=== PATIENT | female | born 1940 | race Caucasian/White ===

== ENCOUNTER 2022-10-26 13:42 | Outpatient (OUT) | payer MEDICARE, OTHER, SELFPAY ==
[2022-10-26 14:48] LABS: C Reactive Protein 0.9 mg/dL (<=1.0)
[2022-10-26 14:54] LABS: Erythrocyte Sedimentation Rate 43 mm/hr (<=30)
[2022-10-27 05:12] LABS: HCV Ab Non Reactive (Non Reactive)
[2022-10-28 05:09] LABS: Hepatitis B Surf Ab Quant <3.1 mIU/mL (Immunity>9.9)
== END 2022-10-26 13:43 | disposition home or self-care (01) ==
PROVIDERS: PCP Internal Medicine Rheumatology; Visit Provider Internal Medicine Rheumatology
DX: Z79.899 Other long term (current) drug therapy (principal); M19.90 Unspecified osteoarthritis, unspecified site; M35.3 Polymyalgia rheumatica
CPT/HCPCS: 36415; 85652; 86140; 86706; 86803

== ENCOUNTER 2022-11-05 14:20 | Emergency (ER) | payer MEDICARE, OTHER, SELFPAY ==
[2022-11-05 14:27] VITALS: BP 162/100; PULSE 99; RESP 18; TEMP 37; O2SAT 97
--- NOTE | 2022-11-05 14:37 | XR_ITS ---
The [address] [address] Patient Name: AMISHA GARCIA MRN: [id number] date: 1940 Sex: F Assigned Patient Location: ER Current Patient Location: ER Accession/Order Number: [id number] Exam Date: 11/05/2022 14:50 Report Date: 11/05/2022 15:15 At the request of: NATACHA ANTOINE Procedure: XR wrist LT min 3V PROCEDURE: XR wrist LT min 3V HISTORY: left wrist pain , base of thumb pain COMPARISON: None. FINDINGS: BONES:Advanced degenerative changes at base of thumb with marked flattening/destruction of the trapezium and triquetrum versus anterior dislocation. SOFT TISSUES:Mild soft tissue swelling surrounding the wrist. Bone anchor within what is suspected to be the anteriorly displaced trapezium. EFFUSION:None visible. OTHER: Negative. XR/XR wrist LT min 3V IMPRESSION: 1. Marked degenerative changes and suspected anterior dislocation of the trapezium and involving the base of the thumb. No prior studies for comparison. 2. No appreciable acute fracture. Electronically authenticated by: IHSAN PEDROZA Date: 11/05/2022 15:15
--- NOTE | 2022-11-05 14:38 | ED_ITS ---
HPI - Extremity Injury (Upper) General Chief Complaint: Extremity Injury, Upper Stated Complaint: L FOREARM PAIN Time Seen by Provider: 11/05/22 14:27 Source: patient Mode of arrival: walk-in Limitations: no limitations History of Present Illness HPI narrative: Patient is an 82-year-old female presents to the emergency department for the evaluation of pain and bruising to the left volar wrist since yesterday. She states that she hit her hand on something yesterday, possibly the refrigerator and believes her hand was in a fist position. She states she has developed bruising to the left volar wrist and pain with supination and pronation. No other associated injuries. She is not on blood thinners. She denies numbness or tingling. No pain in the hand. Related Data Allergies Allergy/AdvReac Type Severity Reaction Status Date / Time No Known Drug Allergies Allergy Verified 11/05/22 14:34 Review of Systems ROS Constitutional Denies: fever or chills Ears, nose, mouth, and throat Denies: throat pain Cardiovascular Denies: chest pain Respiratory Denies: shortness of breath or cough Gastrointestinal Denies: nausea or vomiting Musculoskeletal Reports: extremity pain; Denies: back pain or neck pain Integumentary/Breast Denies: rash Neurological Denies: headache Hematologic/Lymphatic Denies: easy bruising Exam Narrative Exam Narrative: Gen.: Awake, alert, in no distress Head: Normocephalic, atraumatic ENT: Moist mucous membranes Respiratory: No respiratory distress Extremities: Minimal pain with supination of the left wrist, faint ecchymosis noted to the left volar wrist, no bony point tenderness or obvious deformity. 2+ left radial pulse. 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 No tenderness of the proximal forearm or left elbow. Psych: Normal mood and affect Neuro: No focal neuro deficit Skin: Warm, dry, intact Constitutional Vital Signs, click to edit/add: Last Vital Signs Temp 98.6 F 11/05/22 14:27 Pulse 99 H 11/05/22 14:27 Resp 18 11/05/22 14:27 BP 162/100 H 11/05/22 14:27 Pulse Ox 97 11/05/22 14:27 O2 Del Method Room Air 11/05/22 14:27 Course Vital Signs Vital signs: Vital Signs Temperature 98.6 F 11/05/22 14:27 Pulse Rate 99 H 11/05/22 14:27 Respiratory Rate 18 11/05/22 14:27 Blood Pressure 162/100 H 11/05/22 14:27 Pulse Oximetry 97 11/05/22 14:27 Oxygen Delivery Method Room Air 11/05/22 14:27 Temperature 98.6 F 11/05/22 14:27 Pulse Rate 99 H 11/05/22 14:27 Respiratory Rate 18 11/05/22 14:27 Blood Pressure 162/100 H 11/05/22 14:27 Pulse Oximetry 97 11/05/22 14:27 Oxygen Delivery Method Room Air 11/05/22 14:27 MDM - Extremity Injury (Upper) MDM Narrative Medical decision making narrative: X-rays with no evidence of acute fracture, patient does have chronic arthritis 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 She is placed in a left wrist splint, Motrin and Tylenol as needed for pain. Apply ice to the area. She is neurovascularly intact at discharge. Medical Records Attestation: I reviewed the patient's medical records. Discharge Plan Discharge Chief Complaint: Extremity Injury, Upper Clinical Impression: Left wrist sprain Patient Disposition: Home, Self-Care Time of Disposition Decision: 15:26 Condition: Good Instructions: Wrist Sprain (ED) Stand Alone Forms: Portal Instructions Referrals: LOPEZ VELÁSQUEZ [Primary Care Provider] - 1 week Discharge Date/Time: 11/05/22 15:36
== END 2022-11-05 15:36 | disposition home or self-care (01) ==
PROVIDERS: Emergency Provider Emergency Medicine; PCP Internal Medicine Rheumatology
DX: S63.502A Unspecified sprain of left wrist, initial encounter (principal); W22.8XXA Striking against or struck by other objects, initial encounter
CPT/HCPCS: 73110; 99283

== ENCOUNTER 2022-11-10 15:42 | Outpatient (OUT) | payer MEDICARE, OTHER, SELFPAY ==
[2022-11-10 16:24] LABS: Erythrocyte Sedimentation Rate 65 mm/hr (<=30)
[2022-11-10 16:41] LABS: C Reactive Protein <0.2 mg/dL (<=1.0)
== END 2022-11-10 15:43 | disposition home or self-care (01) ==
LOC: LAB 15:45
PROVIDERS: PCP Internal Medicine Rheumatology; Visit Provider Internal Medicine Rheumatology
DX: M35.3 Polymyalgia rheumatica (principal); M19.90 Unspecified osteoarthritis, unspecified site; Z79.899 Other long term (current) drug therapy
CPT/HCPCS: 36415; 85652; 86140

== ENCOUNTER 2022-12-21 15:59 | Outpatient (OUT) | payer MEDICARE, OTHER, SELFPAY ==
[2022-12-21 16:28] LABS: Erythrocyte Sedimentation Rate 90 mm/hr (<=30)
[2022-12-21 16:34] LABS: C Reactive Protein 2.2 mg/dL (<=1.0)
== END 2022-12-21 16:00 | disposition home or self-care (01) ==
LOC: LAB 16:03
PROVIDERS: PCP Internal Medicine Rheumatology; Visit Provider Internal Medicine Rheumatology
DX: M35.3 Polymyalgia rheumatica (principal); M15.0 Primary generalized (osteo)arthritis; Z79.899 Other long term (current) drug therapy
CPT/HCPCS: 36415; 85652; 86140

== ENCOUNTER 2023-02-09 16:52 | Emergency (ER) | payer MEDICARE, OTHER, SELFPAY ==
[2023-02-09 16:58] VITALS: BP 154/76; PULSE 102; RESP 18; TEMP 36.6; O2SAT 98; BMI 25.8
--- NOTE | 2023-02-09 17:27 | ED.GENADUL1 ---
HPI - General Adult General Chief complaint: Urogenital-Female Stated complaint: UTI Time Seen by Provider: 02/09/23 17:06 Source: patient Mode of arrival: walk-in History of Present Illness HPI narrative: Patient is an 82-year-old female who presents to the emergency department for the evaluation of possible UTI. Patient states she came to the emergency department today at the request of her PCP office, she states she is on a medication for rheumatoid arthritis and was told by the office staff that they have seen multiple people develop UTIs on this medication. She states she has no focal medical complaints, she has no abdominal pain, flank pain, fevers, chills, nausea, vomiting. She is able to urinate without difficulty. Related Data Home Medications Medication Instructions Recorded Confirmed prednisone 5 mg tablet 20 mg PO DAILY 02/09/23 02/09/23 Allergies Allergy/AdvReac Type Severity Reaction Status Date / Time No Known Drug Allergies Allergy Verified 11/05/22 14:34 Review of Systems ROS Constitutional Denies: fever or chills Ears, nose, mouth, and throat Denies: throat pain Cardiovascular Denies: chest pain Respiratory Denies: shortness of breath Gastrointestinal Denies: abdominal pain, nausea, vomiting or diarrhea Genitourinary Denies: painful urination Musculoskeletal Denies: back pain Integumentary/Breast Denies: rash Neurological Denies: headache Hematologic/Lymphatic Denies: easy bruising Exam Narrative Exam Narrative: Gen.: Awake, alert, in no distress Head: Normocephalic, atraumatic ENT: Moist mucous membranes Respiratory: No respiratory distress, lungs clear bilaterally Cardio: Regular rate and rhythm Gastrointestinal: Abdomen is soft, nondistended and nontender to palpation Extremities: Moves extremities equally Psych: Normal mood and affect Neuro: No focal neuro deficit Skin: Warm, dry, intact Constitutional Vital Signs, click to edit/add: Last Vital Signs Temp 97.9 F 02/09/23 16:58 Pulse 102 H 02/09/23 16:58 Resp 18 02/09/23 16:58 BP 154/76 H 02/09/23 16:58 Pulse Ox 98 02/09/23 16:58 O2 Del Method Room Air 02/09/23 16:58 Course Vital Signs Vital signs: Vital Signs Temperature 97.9 F 02/09/23 16:58 Pulse Rate 102 H 11/21/23 16:58 Respiratory Rate 18 02/09/23 16:58 Blood Pressure 154/76 H 02/09/23 16:58 Pulse Oximetry 98 02/09/23 16:58 Oxygen Delivery Method Room Air 02/09/23 16:58 Temperature 97.9 F 02/09/23 16:58 Pulse Rate 102 H 02/09/23 16:58 Respiratory Rate 18 02/09/23 16:58 Blood Pressure 154/76 H 02/09/23 16:58 Pulse Oximetry 98 02/09/23 16:58 Oxygen Delivery Method Room Air 02/09/23 16:58 Medical Decision Making MDM Narrative Medical decision making narrative: Patient with no medical complaints in the ER, her urine specimen is unremarkable and she is discharged home to follow-up with PCP, return to the ER if symptoms change or worsen After my discussion with the patient, her urine was tested, it is within normal limits and she was discharged home with general screening instructions. Patient's daughter presented back to the ER and expressed concern about the patient's prednisone dosage from her family assistant for her arthritis. She has been taking 5 mg of prednisone 4 times daily chronically since June and the patient's daughter is concerned about this dosage. She asked multiple times if the patient can start to taper herself down. I instructed the patient and her daughter that if they are uncomfortable with the patient's prednisone dosage, they should contact the rheumatology office to make them aware that they are changing the patient's dosage schedule, but there should be no significant change in treatment between 15 mg daily and 20 mg daily, although they were counseled that they should not change their prescriptions without making their physician aware. Patient's daughter further questions a general decline in the patient's mentation over the last several months, she states this is why she is concerned about the prednisone. Patient has had an increase in forgetfulness and balancing her checkbook, she does not have a primary care provider and has not been tested for dementia. I had a lengthy discussion with the patient and her daughter at bedside, they will be referred to a primary care provider who can order additional testing. No acute symptoms today and the patient is alert and oriented at discharge. Medical Records Medical records reviewed: Yes I reviewed the patient's medical records Lab Data Lab results reviewed: Yes I reviewed the patient's lab results Labs: Lab Results 02/09/23 Range/Units 16:58 Urine Color Yellow (YELLOW) Urine Clarity Clear (CLEAR) Urine pH 6.0 (5.0-9.0) Ur Specific [place] 1.025 (1.005-1.025) Urine Protein Negative (NEG/TRACE) mg/dL Urine Glucose (UA) Negative (NEGATIVE) mg/dL Urine Ketones Negative (NEGATIVE) mg/dL Urine Occult Blood Negative (NEGATIVE) Urine Nitrite Negative (NEGATIVE) Urine Bilirubin Negative (NEGATIVE) Urine Urobilinogen 2.0 A (0.2-1.0) EU/dL Ur Leukocyte Esterase Negative (NEGATIVE) Discharge Plan Discharge Chief Complaint: Urogenital-Female Clinical Impression: Adult general medical exam Patient Disposition: Home, Self-Care Time of Disposition Decision: 18:03 Condition: Good Prescriptions / Home Meds: No Action prednisone 5 mg tablet 20 mg PO DAILY Instructions: Normal Exam (ED) Stand Alone Forms: Portal Instructions Referrals: LOPEZ VELÁSQUEZ [Primary Care Provider] - 1 week Discharge Date/Time: 02/09/23 18:33
[2023-02-09 17:53] LABS: Bilirubin Urine NEGATIVE (NEGATIVE); Blood Urine NEGATIVE (NEGATIVE); Clarity Urine CLEAR (CLEAR); Color Urine YELLOW (YELLOW); Glucose Urine UA NEGATIVE (NEGATIVE); Ketones Urine NEGATIVE (NEGATIVE); Leukocyte Esterase Urine NEGATIVE (NEGATIVE); Nitrite Urine NEGATIVE (NEGATIVE); Protein Urine NEGATIVE (NEG/TRACE); Specific Gravity Urine 1.025 (1.005-1.025)
[2023-02-09 17:54] LABS: Urine Microscopic Indicated NO
== END 2023-02-09 18:33 | disposition home or self-care (01) ==
PROVIDERS: Physician Assistant; Emergency Provider Emergency Medicine; PCP Internal Medicine Rheumatology
DX: Z71.1 Person with feared health complaint in whom no diagnosis is made (principal); M06.9 Rheumatoid arthritis, unspecified; Z79.899 Other long term (current) drug therapy
CPT/HCPCS: 81003; 99283

== ENCOUNTER 2023-02-12 10:29 | Outpatient (OUT) | payer MEDICARE, OTHER, SELFPAY ==
[2023-02-12 11:22] LABS: Erythrocyte Sedimentation Rate 63 mm/hr (<=30)
[2023-02-25 08:42] LABS: C Reactive Protein <0.50 mg/dL (<=0.50)
== END 2023-02-12 10:30 | disposition home or self-care (01) ==
LOC: LAB 10:29
PROVIDERS: Visit Provider Internal Medicine Rheumatology
DX: M35.3 Polymyalgia rheumatica (principal); M15.0 Primary generalized (osteo)arthritis; Z79.899 Other long term (current) drug therapy
CPT/HCPCS: 36415; 85652; 86140

== ENCOUNTER 2023-04-07 11:54 | Outpatient (OUT) | payer MEDICARE, OTHER, SELFPAY ==
--- OUTSIDE RECORDS SUMMARY | 2023-04-07 12:03 | XMS_ITS | CCD ---
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 Name Role Phone JOSE LUIS LIZAMA Unavailable Unavailable SELF, SELF Unavailable Unavailable EDUARDO SHARMA Unavailable Unavailable LIZAMA, JOSE LUIS Y Unavailable Unavailable LIZAMAJOSE LUIS Y Unavailable Unavailable EDUARDO SHARMA Unavailable Unavailable KOSANKUR BERGMAN Unavailable Unavailable ANKUR FRANCE Unavailable Unavailable EDUARDO SHARMA Unavailable Unavailable EDUARDO SHARMA Unavailable Unavailable Umesh, Yolanda Unavailable SABINA ., DR SARIKA Osullivan Attending Unavailable MUHAMMAD ., DR SARIKA Osullivan Admitting Unavailable MUHAMMAD ., DR SARIKA Osullivan Consulting Unavailable [facility], DR GARVEY Primary Care Unavailable MISC, DR GARVEY Consulting Unavailable KASIA, DR IHSAN Lane Consulting Unavailable ESTELA CHUN Consulting Unavailable JORY MCMILLAN Consulting Unavailable CAMILO ARNOLD Consulting Unavailable JELANI MAR Consulting Unavailable ALVINO BENITEZ Consulting Unavailable MARIA ELENA GRAHAM Consulting Unavailable SISTER, WALI Consulting Unavailable Gennaro Cheng Attending Unavailable Gennaro Cheng Admitting Unavailable Schwshonda, Yolanda E Primary Care Unavailable CESIA CHAHAL Attending Unavailable FRANKI CHAVES Referring Unavailable FRANKI CHAVES Primary Care Unavailable Allergies Allergy Classification Reported Allergen(s) Allergy Type Date of Onset Reaction(s) Facility (1 source) 37413,00; Translations: [61868,00] Propensity to adverse reactions (disorder) 9 [facility] Repository (1 source) Adhesive agent; Translations: [ADHESIVE] Propensity to adverse reactions to drug (disorder) 3 [facility] Repository (1 source) Fludrocortisone; Translations: [FLUDROCORTISONE ] Drug Allergy 2 [facility] Repository (1 source) OTHER; Translations: [OTHER] Propensity to adverse reactions (disorder) 6 [facility] Repository Medications Current Medications Medication Drug Class(es) Dates Sig (Normalized) Sig (Original) celecoxib 200 mg oral capsule (6 sources) Nonsteroidal Anti-inflammatory Drug take 1 capsule by mouth every twenty-four hours CeleBREX 200 MG 1 capsule with food Orally Once a day Active cephalexin 500 mg oral capsule (4 sources) Cephalosporin Antibacterial take 1 capsule by mouth every six hours Cephalexin 500 MG 1 capsule Orally Four times a day Active Clotrimazole (2 sources) Azole Antifungal Start: 04-21-2021 Clotrimazole 1 % 1 application Externally Twice a day for 28 day(s) Mar, Active Start: 04-21-2021 Clotrimazole 1 % 1 application Externally Twice a day for 28 day(s) Mar, Active furosemide 40 mg oral tablet (6 sources) Loop Diuretic Start: 12-02-2020 take 1 tablet by mouth once daily as needed Lasix 40 MG 1 tablet Orally Once a day, PRN for 30 day(s) Nov, Active 24 hr metoprolol succinate 25 mg extended release oral tablet (12 sources) beta-Adrenergic Antionette take 1 tablet by mouth every twenty-four hours Metoprolol Succinate ER 25 MG 1 tablet Orally Once a day for 30 day(s) takes to equal 75mg Active take 1 tablet by jacques th every twenty-four hours Metoprolol Succinate ER 50 MG 1 tablet Orally Once a day for 30 day(s) takes to equal 75mg Active mupirocin 0.02 mg/mg topical ointment (6 sources) RNA Synthetase Inhibitor Antibacterial Mupirocin 2 % 1 application Externally Twice a day Active microencapsulated potassium chloride 20 meq extended release oral tablet (6 sources) take 1 tablet by mouth every twenty-four hours Klor-Con M20 20 MEQ 1 tablet with food Orally Once a day Active zolpidem tartrate 5 mg oral tablet (6 sources) gamma-Aminobutyric Acid-ergic Agonist take 1 tablet by mouth at bedtime as needed Zolpidem Tartrate 5 MG 1 tablet at bedtime as needed Oral for 30 Active Completed/Discontinued Medications Medication Drug Class(es) Dates Sig (Normalized) Sig (Original) hyaluronate (5 sources) Start: 02-14-2018 Supartz Jan 25 mg Start: 02-07-2018 Supartz Jan 25 mg Start: 01-31-2018 Supartz Jan 25 mg Start: 01-24-2018 Supartz Jan 25 mg Start: 01-17-2018 Supartz Dec 25 mg Triamcinolone (1 source) Corticosteroid Start: 11-16-2017 Kenalog -40 mg Oct, 10 mg Problems Active Problems Problem Classification Problem Date Documented Date Episodic/Chronic Coronary atherosclerosis and other heart disease (1 source) Atherosclerotic heart disease of [place] coronary artery without angina pectoris; Translations: [ATHSCL HEART DISEASE OF [place] CORONARY ARTERY W/O ANG PCTRS] Onset: 11-06-2016 Chronic Essential hypertension (6 sources) Essential hypertension; Translations: [Essential (primary) hypertension] Chronic Mood disorders (6 sources) Mood disorder; Translations: [Unspecified mood [affective] disorder] Chronic Osteoarthritis (13 sources) Osteoarthritis of right knee joint; Translations: [Unilateral primary osteoarthritis, right knee] Onset: 04-02-2023 Chronic Other aftercare (1 source) Other longterm (current) drug therapy; Translations: [OTH PUBLICIST CURRENT DRUG THERAPY] Onset: 05-28-2022 Episodic Other connective tissue disease (2 sources) Polymyalgia rheumatica; Translations: [POLYMYALGIA RHEUMATICA] Onset: 05-28-2022 Chronic Other connective tissue disease (1 source) Presence of artificial hip joint, bilateral; Translations: [PRESENCE ARTIFICIAL HIP JOINT BILAT] Onset: 05-28-2022 Chronic Other connective tissue disease (1 source) Polymyalgia rheumatica; Translations: [Polymyalgia rheumatica] Onset: 09-07-2022 Chronic Other connective tissue disease (1 source) Muscle weakness (generalized); Translations: [MUSCLE WEAKNESS GENERALIZED] Onset: 05-28-2022 Episodic Other diseases of veins and lymphatics (6 sources) Stasis dermatitis; Translations: [Venous insufficiency (chronic) (peripheral)] Episodic Other non-traumatic joint disorders (4 sources) Pain in right hip; Translations: [PAIN IN RIGHT HIP] Onset: 05-25-2022 Episodic Other non-traumatic joint disorders (1 source) Pain in left hip; Translations: [Pain in left hip] Onset: 04-02-2023 Episodic Residual codes; unclassified (6 sources) Insomnia; Translations: [Insomnia, unspecified] Episodic Screening or history of mental health and substance abuse (2 sources) Personal history of nicotine dependence; Translations: [PERSONAL HISTORY OF NICOTINE DEPENDENCE] Onset: 11-06-2016 Episodic Unclassified (1 source) Condition Update / 178() Onset: 07-21-2017 Unclassified (1 source) Sleep apnea, unspecified; Translations: [SLEEP APNEA, UNSPECIFIED] Onset: 11-06-2016 Unclassified (2 sources) Unknown / UNK(Unknown) Onset: 11-06-2016 Unclassified (1 source) CONTACT W/AND (SUSP) EXPOS COVID-19; Translations: [CONTACT W/AND (SUSP) EXPOS COVID-19] Onset: 05-28-2022 Past or Other Problems Problem Classification Problem Date Documented Da te Episodic/Chronic Cancer of breast (1 source) Personal history of malignant neoplasm of breast; Translations: [PERSONAL HISTORY OF MALIGNANT NEOPLASM OF BREAST] Onset: 11-06-2016 Episodic Other aftercare (1 source) prison (current) use of aspirin; Translations: [[facility] (CURRENT) USE OF ASPIRIN] Onset: 11-06-2016 Episodic Other skin disorders (1 source) Rash and other nonspecific skin eruption Onset: 03-24-2021 Resolved: 03-24-2021 Episodic Syncope (4 sources) Syncope and collapse; Translations: [SYNCOPE AND COLLAPSE] Onset: 11-06-2016 Episodic Unclassified (1 source) Condition Update; Translations: [Condition Update] Onset: 07-21-2017 Results Test Name Value Interpretation Reference Range Facility TAO Antinuclear Antibodieson 09-07-2022 Antinuclear Abs, IFA Positive Critically abnormal . [facility] Comment on above: Result Comment: Negative <1:80 Borderline 1:80 Positive >1:80 Performed By: #### T 4F, TSH3, CRP, CMP, ESR, CBC #### [facility] [address] Homogeneous Pattern 1:160 High . [facility] Comment on above: Result Comment: ICAP nomenclature: [id number] Performed By: #### T 4F, TSH3, CRP, CMP, ESR, CBC #### [facility] [address] Note 1 Normal . [facility] Comment on above: Result Comment: For more information abo ut Hep-2 cell patterns use ANApatterns.org, the official website for the International Consensus on Antinuclear Antibody (TAO) Patterns (ICAP). A positive TAO result may occur in healthy individuals (low titer) or be associated with a variety of diseases. See interpretation chart which is not all inclusive: Pattern Antigen Detected Suggested Disease Association Homogeneous DNA(ds,ss), SLE - High titers Nucleosomes, Histones Drug-induced SLE Speckled Sm, HISTOLOGICAL ILLUSTRATOR, SCL-70, SLE,MCTD,PSS (diffuse form), SS-A/SS-B Sjogrens Nucleolar SCL-70, PM-1/SCL High titers Scleroderma, PM/DM Centromere Centromere PSS (limited form) w/Crest syndrome variable Nuclear Dot [id number] Primary Biliary Cirrhosis Nuclear GP210, Primary Biliary Cirrhosis Membrane vickey A,B,C Performed at: [address] [id number] Environmental Service Aide: Naldo Valdez PhD, Phone: [phone] PERFORMED BY: [place] [address] PATHOLOGIST DECKHAND JORGE LUIS RUELAS M.D. Performed By: #### T 4F, TSH3, CRP, CMP, ESR, CBC #### [address] C-Reactive Proteinon 023 C-Reactive Protein 0.8 mg/dL High 0.0-0.5 [facility] Comment on above: Performed By: #### T4F, TSH3, CRP, CMP, ESR, CBC #### [address] Complete Blood Count Auto Di ffon 09-07-2022 Basophils (Bld) [#/Vol] 0.1 10*3/uL Normal 0.0-0.2 [facility] Comment on above: Performed By: #### T4F, TSH3, CRP, CMP, ESR, CBC #### [address] Basophils/100 WBC (Bld) 1.0 % Normal . [facility] Comment on above: Performed By: #### T4F, TSH3, CRP, CMP, ESR, CBC #### [place] [id number] [place] Eosinophils (Bld) [#/Vol] 0.1 10*3/uL Normal 0.0-0.45 [facility] Comment on above: Performed By: #### T4F, TSH3, CRP, CMP, ESR, CBC #### [address] Eosinophils/100 WBC (Bld) 1.0 % Normal . [facility] Comment on above: Performed By: #### T4F, TSH3, CRP, CMP, ESR, CBC #### [address] Erythrocyte distribution width (RBC) [Ratio] 15.0 % Normal 11.9-15.3 [facility] Comment on above: Performed By: #### T4F, TSH3, CRP, CMP, ESR, CBC #### [address] Hematocrit (Bld) [Volume fraction] 36.3 % Normal 34.0-46.4 [facility] Comment on above: Performed By: #### T4F, TSH3, CRP, CMP, ESR, CBC #### [address] Hemoglobin (Bld) [Mass/Vol] 11.8 g/dL Normal 11.8-15.4 [facility] Comment on above: Performed By: #### T4F, TSH3, CRP, CMP, ESR, CBC #### [address] Lymphocytes (Bld) [#/Vol] 1.4 10*3/uL Normal 1.00-4.8 [facility] Comment on above: Performed By: #### T4F, TSH3, CRP, CMP, ESR, CBC #### [address] Lymphocytes/100 WBC (Bld) 20.9 % Normal . [facility] Comment on above: Performed By: #### T4F, TSH3, CRP, CMP, ESR, CBC #### [address] MCH (RBC) [Entitic mass] 28.9 pg Normal 24.7-34.3 [facility] Comment on above: Performed By: #### T4F, TSH3, CRP, CMP, ESR, CBC #### [address] MCV (RBC) [Entitic vol] 88.4 fL Normal 80-100 [facility] Comment on above: Performed By: #### T4F, TSH3, CRP, CMP, ESR, CBC #### [address] Mean Corpuscular HGB Conc 32.7 g/dL Normal 32.0-35.0 [facility] Comment on above: Performed By: #### T4F, TSH3, CRP, CMP, ESR, CBC #### [address] Monocytes (Bld) [#/Vol] 0.6 10*3/uL Normal 0.0-0.8 [facility] Comment on above: Performed By: #### T4F, TSH3, CRP, CMP, ESR, CBC #### [address] Monocytes/100 WBC (Bld) 9.2 % Normal . [facility] Comment on above: Performed By: #### T4F, TSH3, CRP, CMP, ESR, CBC #### [address] Neutrophils (Bld) [#/Vol] 4.4 10*3/uL Normal 1.8-7.7 [facility] Comment on above: Performed By: #### T4F, TSH3, CRP, CMP, ESR, CBC #### [address] Neutrophils/100 WBC (Bld) 67.9 % Normal . [facility] Comment on above: Performed By: #### T4F, TSH3, CRP, CMP, ESR, CBC #### [address] NRBC% 0.1 /100{WBC} Normal 0-0.5 [facility] Comment on above: Performed By: #### T4F, TSH3, CRP, CMP, ESR, CBC #### [address] Platelet mean volume (Bld) [Entitic vol] 8.8 fL Normal 6.3-10.7 [facility] Comment on above: Performed By: #### T4F, TSH3, CRP, CMP, ESR, CBC #### [address] Platelets (Bld) [#/Vol] 272 10*3/uL Normal 150-450 [facility] Comment on above: Performed By: #### T4F, TSH3, CRP, CMP, ESR, CBC #### [address] RBC (Bld) [#/Vol] 4.11 10*6/uL Normal 3.60-5.00 [facility] Comment on above: Performed By: #### T4F, TSH3, CRP, CMP, ESR, CBC #### [address] WBC (Bld) [#/Vol] 6.5 10*3/uL Normal 3.8-11.6 [facility] Comment on above: Performed By: #### T4F, TSH3, CRP, CMP, ESR, CBC #### [address] Comprehensive Metabolic Pane johana 09-07-2022 Albumin [Mass/Vol] 3.7 g/dL Normal 3.5-5.7 [facility] Comment on above: Performed By: #### T4F, TSH3, CRP, CMP, ESR, CBC #### [address] Albumin/Globulin [Mass ratio] 1.4 {ratio} Normal [facility] Comment on above: Performed By: #### T4F, TSH3, CRP, CMP, ESR, CBC #### [address] ALP [Catalytic activity/Vol] 83 U/L Normal 34-104 [facility] Comment on above: Performed By: #### T4F, TSH3, CRP, CMP, ESR, CBC #### [address] ALT [Catalytic activity/Vol] 9 U/L Normal 7-52 [facility] Comment on above: Performed By: #### T4F, TSH3, CRP, CMP, ESR, CBC #### [address] Anion gap [Moles/Vol] 11.9 mmol/L Normal 6.0-15.0 [facility] Comment on above: Performed By: #### T4F, TSH3, CRP, CMP, ESR, CBC #### [address] AST [Catalytic activity/Vol] 12 U/L Low 13-39 [facility] Comment on above: Performed By: #### T4F, TSH3, CRP, CMP, ESR, CBC #### [address] Bilirubin [Mass/Vol] 0.4 mg/dL Normal 0.3-1.0 [facility] Comment on above: Performed By: #### T4F, TSH3, CRP, CMP, ESR, CBC #### [address] Calcium [Mass/Vol] 9.0 mg/dL Normal 8.6-10.3 [facility] Comment on above: Performed By: #### T4F, TSH3, CRP, CMP, ESR, CBC #### [address] Chloride [Moles/Vol] 105 mmol/L Normal 98-107 [facility] Comment on above: Performed By: #### T4F, TSH3, CRP, CMP, ESR, CBC #### [address] CO2 [Moles/Vol] 30.4 mmol/L Normal 21.0-31.0 [facility] Comment on above: Performed By: #### T4F, TSH3, CRP, CMP, ESR, CBC #### [facility] [address] Creatinine [Mass/Vol] 0.92 mg/dL Normal 0.60-1.20 [facility] Comment on above: Performed By: #### T4F, TSH3, CRP, CMP, ESR, CBC #### [facility] [address] GFR/1.73 sq M.predicted MDRD (S/P/Bld) [Vol rate/Area] mL/min/{1.73_m2} [facility] Comment on above: Performed By: #### T4F, TSH3, CRP, CMP, ESR, CBC #### [address] Globulin (S) [Mass/Vol] 2.6 g/dL Normal [facility] Comment on above: Performed By: #### T4F, TSH3, CRP, CMP, ESR, CBC #### [address] Glucose [Mass/Vol] 92 mg/dL Normal 70-100 [facility] Comment on above: Result Comment: Random Glucose Reference Range is dependent on time and content of last meal. Glucose of more than 200 mg/dL in a nonstressed, ambulatory subject supports the diagnosis of Diabetes Mellitus. ADA recommended reference range Performed By: #### T 4F, TSH3, CRP, CMP, ESR, CBC #### [address] Potassium [Moles/Vol] 4.3 mmol/L Normal 3.5-5.1 [facility] Comment on above: Performed By: #### T4F, TSH3, CRP, CMP, ESR, CBC #### [address] Protein [Mass/Vol] 6.3 g/dL Low 6.4-8.9 [facility] Comment on above: Performed By: #### T4F, TSH3, CRP, CMP, ESR, CBC #### [facility] [address] Sodium [Moles/Vol] 143 mmol/L Normal 136-145 [facility] Comment on above: Performed By: #### T4F, TSH3, CRP, CMP, ESR, CBC #### [facility] [address] Urea nitrogen [Mass/Vol] 21 mg/dL Normal 7-25 [facility] Comment on above: Performed By: #### T4F, TSH3, CRP, CMP, ESR, CBC #### [facility] [address] [place] [address] [place] Dipstick and Microscopicon 0 09-07-2022 Appearance (U) Cloudy Critically abnormal Clear [facility] Comment on above: Order Comment: Name Collection Type:: Cl marcie-Voided Midstream Performed By: #### S PE, UPE RAND, VITO SERUM, VITO,URINE #### [facility] , #### CUU, ADDONUAPLUS #### [facility] [address] [place] [address] [place] Bacteria,Urine 4+ High None Seen [facility] Comment on above: Order Comment: Name Collection Type:: Cl marcei-Voided Midstream Performed By: #### S PE, UPE RAND, VITO SERUM, VITO,URINE #### [facility] , #### CUU, ADDONUAPLUS #### [facility] [address] [place] [address] [place] Bilirubin,Urine Negative Normal Negative [facility] Comment on above: Order Comment: Name Collection Type:: Cl marcie-Voided Midstream Performed By: #### S PE, UPE RAND, VITO SERUM, VITO,URINE #### [facility] , #### CUU, ADDONUAPLUS #### [facility] [address] [place] [address] [place] Color (U) Yellow Normal Yellow [facility] Comment on above: Order Comment: Name Collection Type:: Cl marcie-Voided Midstream Performed By: #### S PE, UPE RAND, VITO SERUM, VITO,URINE #### [facility] , #### CUU, ADDONUAPLUS #### [facility] [address] [place] [address] Glucose Ql (U) Normal Normal Normal [facility] Comment on above: Order Comment: Name Collection Type:: Cl marcie-Voided Midstream Performed By: #### S PE, UPE RAND, VITO SERUM, VITO,URINE #### [facility] , #### CUU, ADDONUAPLUS #### [facility] [address] [place] [address] Hyaline Casts,Urine 0-8 Normal 0-8 [facility] Comment on above: Order Comment: Name Collection Type:: Cl marcie-Voided Midstream Result Comment: PERF ORMED BY: [place] [address] PATHOLOGIST DECKHAND JORGE LUIS RUELAS M.D. Performed By: #### S PE, UPE RAND, VITO SERUM, VITO,URINE #### [facility] , #### CUU, ADDONUAPLUS #### [facility] [address] [place] [address] Ketones Ql (U) Trace High Negative [facility] Comment on above: Order Comment: Name Collection Type:: Cl marcie-Voided Midstream Performed By: #### S PE, UPE RAND, VITO SERUM, VITO,URINE #### [facility] , #### CUU, ADDONUAPLUS #### [facility] [address] [place] [address] Leukocyte esterase Test strip Ql (U) 1+ High Negative [facility] Comment on above: Order Comment: Name Collection Type:: Cl marcie-Voided Midstream Performed By: #### S PE, UPE RAND, VITO SERUM, VITO,URINE #### [facility] , #### CUU, ADDONUAPLUS #### [facility] [address] [place] [address] Nitrite,Urine Positive High Negative [facility] Comment on above: Order Comment: Name Collection Type:: Cl marcie-Voided Midstream Performed By: #### S PE, UPE RAND, VITO SERUM, VITO,URINE #### [facility] , #### CUU, ADDONUAPLUS #### [facility] [address] [place] [address] Occult Blood,Urine Negative Normal Negative [facility] Comment on above: Order Comment: Name Collection Type:: Cl marcie-Voided Midstream Performed By: #### S PE, UPE RAND, VITO SERUM, VITO,URINE #### [facility] , #### CUU, ADDONUAPLUS #### [address] pH (U) 5.5 [pH] Normal 5.0-9.0 [facility] Comment on above: Order Comment: Name Collection Type:: Cl marcie-Voided Midstream Performed By: #### S PE, UPE RAND, VITO SERUM, VITO,URINE #### [facility] , #### CUU, ADDONUAPLUS #### [address] Protein,Urine Negative Normal Negative [facility] Comment on above: Order Comment: Name Collection Type:: Cl marcie-Voided Midstream Performed By: #### S PE, UPE RAND, VITO SERUM, VITO,URINE #### [facility] , #### CUU, ADDONUAPLUS #### [facility] [address] [place] [address] [place] RBC,Urine 3-4 Normal 0-4 [facility] Comment on above: Order Comment: Name Collection Type:: Cl marcie-Voided Midstream Performed By: #### S PE, UPE RAND, VITO SERUM, VITO,URINE #### [facility] , #### CUU, ADDONUAPLUS #### [facility] [address] [place] [address] Specificy [place],Urine 1.027 Normal 1.001-1.03 0 [facility] Comment on above: Order Comment: Name Collection Type:: Cl marcie-Voided Midstream Performed By: #### S PE, UPE RAND, VITO SERUM, VITO,URINE #### [facility] , #### CUU, ADDONUAPLUS #### [facility] [address] [place] [address] Squamous Epithelial Cell,Urine 5-9 High 0-2 [facility] Comment on above: Order Comment: Name Collection Type:: Cl marcie-Voided Midstream Performed By: #### S PE, UPE RAND, VITO SERUM, VITO,URINE #### [facility] , #### CUU, ADDONUAPLUS #### [facility] [address] [place] [address] Urobilinogen,Uri ne Normal Normal Normal [facility] Comment on above: Order Comment: Name Collection Type:: Cl marcie-Voided Midstream Performed By: #### S PE, UPE RAND, VITO SERUM, VITO,URINE #### [facility] , #### CUU, ADDONUAPLUS #### [facility] [address] [place] [address] WBC,Urine 5-9 High 0-4 [facility] Comment on above: Order Comment: Name Collection Type:: Cl marcie-Voided Midstream Performed By: #### S PE, UPE RAND, VITO SERUM, VITO,URINE #### [facility] , #### CUU, ADDONUAPLUS #### [facility] [address] [place] [address] Erythrocyte Sedimentation Ra trent 09-07-2022 ESR (Bld) [Velocity] 63 mm/h High 0-29 [facility] Comment on above: Result Comment: PERFORMED BY: [place] [address] PATHOLOGIST DECKHAND JORGE LUIS RUELAS M.D. Performed By: #### T 4F, TSH3, CRP, CMP, ESR, CBC #### [address] Free T4 (Free Thyroxine)on 0 09-07-2022 Free T4 [Mass/Vol] 0.96 ng/dL Normal 0.61-1.12 [facility] Comment on above: Performed By: #### T4F, TSH3, CRP, CMP, ESR, CBC #### [place] [address] [place] Immunofixation, (VITO), Urine on 09-07-2022 Immunofixation, (VITO), Urine Normal . [facility] Comment on above: Result Comment: No monoclonality detecte d. Performed at: - [facility] [id number] Environmental Service Aide: Naldo Valdez PhD, Phone: [phone] Performed By: #### T 4F, TSH3, CRP, CMP, ESR, CBC #### [place] [address] [place] Immunofixation,Serumon 09-07 Immunofixation, Serum Normal . [facility] Comment on above: Result Comment: No monoclonality detecte d. Performed By: #### S PE, UPE RAND, VITO SERUM, VITO,URINE #### [facility] , #### CUU, ADDONUAPLUS #### [place] [address] [place] Immunoglobulin A, Serum 107 mg/dL Normal 64-422 [facility] Comment on above: Performed By: #### SPE, UPE RAND, VITO SE RUM, VITO,URINE #### [facility] , #### CUU, ADDONUAPLUS #### [address] Immunoglobulin G 972 mg/dL Normal 586-1602 [facility] Comment on above: Performed By: #### SPE, UPE RAND, VITO SE RUM, VITO,URINE #### [facility] , #### CUU, ADDONUAPLUS #### [facility] [address] [place] [id number] [place] Immunoglobulin M, Serum 348 mg/dL High 26-217 [facility] Comment on above: Result Comment: Performed at: [facility] [address] [id number] Environmental Service Aide: Naldo Valdez PhD, Phone: [phone] Performed By: #### S PE, UPE RAND, VITO SERUM, VITO,URINE #### [facility] , #### CUU, ADDONUAPLUS #### [facility] [address] [place] [address] [place] Protein Electro, Random Urin chester 09-07-2022 Albumin, Urine 15.7 % Normal . [facility] Comment on above: Performed By: #### T4F, TSH3, CRP, CMP, ESR, CBC #### [facility] [address] [place] [address] [place] Bdcmh-[id number] , Urine 1.3 % Normal . [facility] Comment on above: Performed By: #### T4F, TSH3, CRP, CMP, ESR, CBC #### [facility] [address] [place] [address] [place] [id number]-[id number] , Urine 17.8 % Normal . [facility] Comment on above: Performed By: #### T4F, TSH3, CRP, CMP, ESR, CBC #### [facility] [address] [place] [id number] [place] Beta Globulin, Urine 36.1 % Normal . [facility] Comment on above: Performed By: #### T4F, TSH3, CRP, CMP, ESR, CBC #### [facility] [facility] [address] [id number] [place] Gamma Globulin, Urine 29.0 % Normal . [facility] Comment on above: Performed By: #### T4F, TSH3, CRP, CMP, ESR, CBC #### [address] M-Virgil % Not Observed Normal Not Observed [facility] Comment on above: Performed By: #### T4F, TSH3, CRP, CMP, ESR, CBC #### [address] Please Note: Normal . [facility] Comment on above: Result Comment: Protein electrophoresis scan will follow via computer, mail, or sales enablement consultant delivery. PERFORMED BY: [place] [address] PATHOLOGIST DECKHAND JORGE LUIS RUELAS M.D. Performed By: #### T 4F, TSH3, CRP, CMP, ESR, CBC #### [address] Protein (U) [Mass/Vol] 27.7 mg/dL Normal Not Estab. [facility] Comment on above: Performed By: #### T4F, TSH3, CRP, CMP, ESR, CBC #### [address] Protein Electrophoresis, Ser umon 09-07-2022 Albumin [Mass/Vol] 3.3 g/dL Normal 2.9-4.4 [facility] Comment on above: Performed By: #### SPE, UPE RAND, VITO SE RUM, VITO,URINE #### [facility] , #### CUU, ADDONUAPLUS #### [address] Albumin/Globulin [Mass ratio] 1.1 {ratio} Normal 0.7-1.7 [facility] Comment on above: Performed By: #### SPE, UPE RAND, VITO SE RUM, VITO,URINE #### [facility] , #### CUU, ADDONUAPLUS #### [address] Buior-1-Fqynszko 0.3 g/dL Normal 0.0-0.4 [facility] Comment on above: Performed By: #### SPE, UPE RAND, VITO SE RUM, VITO,URINE #### [facility] , #### CUU, ADDONUAPLUS #### [facility] [address] [place] [address] Okhym-8-Emjairsx 0.9 g/dL Normal 0.4-1.0 [facility] Comment on above: Performed By: #### SPE, UPE RAND, VITO SE RUM, VITO,URINE #### [facility] , #### CUU, ADDONUAPLUS #### [facility] [address] [place] [address] [place] Beta Globulin 0.9 g/dL Normal 0.7-1.3 [facility] Comment on above: Performed By: #### SPE, UPE RAND, VITO SE RUM, VITO,URINE #### [facility] , #### CUU, ADDONUAPLUS #### [facility] [address] [place] [address] Gamma Globulin 1.1 g/dL Normal 0.4-1.8 [facility] Comment on above: Performed By: #### SPE, UPE RAND, VITO SE RUM, VITO,URINE #### [facility] , #### CUU, ADDONUAPLUS #### [facility] [address] [place] [address] [place] Globulin (S) [Mass/Vol] 3.1 g/dL Normal 2.2-3.9 [facility] Comment on above: Performed By: #### SPE, UPE RAND, VITO SE RUM, VITO,URINE #### [facility] , #### CUU, ADDONUAPLUS #### [facility] [address] [place] [address] M-Virgil Not Observed Normal Not Observed [facility] Comment on above: Performed By: #### SPE, UPE RAND, VITO SE RUM, VITO,URINE #### [facility] , #### CUU, ADDONUAPLUS #### [address] Protein [Mass/Vol] 6.4 g/dL Normal 6.0-8.5 [facility] Comment on above: Performed By: #### SPE, UPE RAND, VITO SE RUM, VITO,URINE #### [facility] , #### CUU, ADDONUAPLUS #### [address] SPE-Note Normal . [facility] Comment on above: Result Comment: Protein electrophoresis scan will follow via computer, mail, or sales enablement consultant delivery. Performed at: [facility] [employer] [id number] Environmental Service Aide: Naldo Valdez PhD, Phone: [phone] PERFORMED BY: [place] [address] PATHOLOGIST DECKHAND JORGE LUIS RUELAS M.D. Performed By: #### S PE, UPE RAND, VITO SERUM, VITO,URINE #### [facility] , #### CUU, ADDONUAPLUS #### [address] Thyroid Stimulating Hormoneo n 09-07-2022 TSH Qn 1.60 m[IU]/L Normal 0.45-5.33 [facility] Comment on above: Result Comment: PERFORMED BY: [place] [address] PATHOLOGIST DECKHAND JORGE LUIS RUELAS M.D. Performed By: #### T 4F, TSH3, CRP, CMP, ESR, CBC #### [address] Urine Cultureon 09-07-2022 Bacteria identified Cx Nom (U) ORGANISM: Escherichia coli (O:ESCCOL) [place] Count >100,000 Aerobic DELFIN Charge ([id number]) SUSCEPTIBILITY ORGANISM: O:ESCCOL ANTIBIOTIC INTERPRETATION DELFIN Amikacin S <16 Amoxacillin/K Clavulanate S <8 Ampicillin S <8 Ampicillin/Sulbactam S <4 Aztreonam S <4 Cefazolin S <2 Cefepime S <2 Ceftazidime S <1 Ceftazidime/Avibactam S <4 Ceftolozane/Tazobactam S <2 Ceftriaxone S <1 Cefuroxime S <4 Ciprofloxacin S <0.25 Ertapenem S <0.5 Gentamicin S <2 Levofloxacin S <0.5 Meropenem S <1 Meropenem/Vaborbactam S <2 Nitrofurantoin S <32 Piperacillin/Tazobactam S <8 Tetracycline S <4 Tigecycline S <2 Tobramycin S <2 Trimethoprim/Sulfamethoxazole S <0.5 S = SUSCEPTIBLE I = INTERMEDIATE R = RESISTANT BLANK = DATA NOT AVAILABLE, OR DRUG NOT ADVISABLE OR TESTED R* = RESISTANCE DUE TO EXTENDED SPECTRUM BETA-LACTAMASES ESBL = EXTENDED SPECTRUM BETA-LACTAMASE TFG = THYMIDINE-DEPENDENT STRAIN JAMES = BETA-LACTAMASE POSITIVE IB = INDUCIBLE BETA-LACTAMASE. APPEARS IN PLACE OF 'S' WITH SPECIES KNOWN TO POSSESS INDUCIBLE BETA-LACTAMASES. POTENTIALLY THEY MAY BECOME RESISTANT TO ALL B-LACTAM DRUGS. PERFORMED BY: [place] [address] PATHOLOGIST DECKHAND JORGE LUIS RUELAS M.D. [facility] Comment on above: Performed By: #### LUZMARIA, CORNELL DUFFY, VITO SE RUM, VITO,URINE #### [facility] , #### CUU, ADDONUAPLUS #### [address] CULTURE URINEon 05-28-2022 CULTURE URINE Isolate 1 Escherichia coli >100,000 cfu/mL of ORGANISM 1 Escherichia coli ANTIBIOTIC M.I.C RX STATUS Ampicillin <=2 S F Ampicillin/Sulbactam <=2 S F Piperacillin/Tazobactam <=4 S F Cefazolin <=4 S F Ceftazidime <=1 S F Ceftriaxone <=1 S F Ertapenem <=0.5 S F Imipenem <=0.25 S F Amikacin <=2 S F Gentamicin <=1 S F Tobramycin <=1 S F Ciprofloxacin <=0.25 S F Levofloxacin <=0.12 S F Nitrofurantoin <=16 S F Trimethoprim/Sulfamethoxazole <=20 S F Normal [facility] Comment on above: Performed By: #### UACSIND #### [facility] [address] [place] [address] Dr. Megan Caballero ALDOLASEon 05-27-2022 Aldolase 5.8 U/L Normal 3.3-10.3 [facility] Comment on above: Performed By: #### LACT #### [facility] [address] [place] [address] Dr. Megan Caballero TAO DIRECTon 05-27-2022 TAO Direct Negative Normal Negative [facility] Comment on above: Performed By: #### LACT #### [facility] [address] [place] [address] Dr. Megan Caballero RHEUMATOID FACTORon 05-28-19 23 RA Latex Turbid. 28.2 IU/mL Critically high <14.0 [facility] Comment on above: Performed By: #### LACT #### [facility] [address] [place] [address] Dr. Megan Caballero CBC AUTO DIFFon 05-26-2022 BASO # 0.0 103/ul Normal 0.0-0.1 [facility] Comment on above: Performed By: #### LACT #### [facility] [address] [place] [address] Dr. Megan Caballero Basophils/100 WBC (Bld) 0.1 % Critically low 0.2-2.0 [facility] Comment on above: Performed By: #### LACT #### [facility] [address] [place] [address] Dr. Megan Caballero EO # 0.0 103/ul Normal 0.0-0.7 [facility] Comment on above: Performed By: #### LACT #### [facility] [address] [place] [address] Dr. Megan Caballero Eosinophils/100 WBC (Bld) 0.0 % Critically low 0.9-7.0 [facility] Comment on above: Performed By: #### LACT #### [facility] [address] [place] [address] Dr. Megan Caballero Erythrocyte distribution width (RBC) [Ratio] 13.4 % Normal 11.0-15.0 [facility] Comment on above: Performed By: #### LACT #### [facility] [address] [place] [address] Dr. Megan Caballero Hematocrit (Bld) [Volume fraction] 33.4 % Critically low 36.0-48.0 [facility] Comment on above: Performed By: #### LACT #### [facility] [address] [place] [address] Dr. Megan Caballero Hemoglobin (Bld) [Mass/Vol] 11.0 g/dL Critically low 12.0-16.0 [facility] Comment on above: Performed By: #### LACT #### [facility] [address] [place] [address] Dr. Megan Caballero IG # 0.12 10e3/ul Critically high 0.00-0.03 [facility] Comment on above: Performed By: #### LACT #### [facility] [address] [place] [address] Dr. Megan Caballero IG % 0.9 % Critically high 0.0-0.5 [facility] Comment on above: Performed By: #### LACT #### [facility] [address] [place] [address] Dr. Megan Caballero LYMPH # 0.8 103/ul Critically low 1.2-3.8 [facility] Comment on above: Performed By: #### LACT #### [facility] [address] [place] [address] Dr. Megan Caballero Lymphocytes/100 WBC (Bld) 5.7 % Critically low 20.5-60.0 [facility] Comment on above: Performed By: #### LACT #### [facility] [address] [place] [address] Dr. Megan Caballero MANUAL DIFF REQ NO Normal [facility] Comment on above: Performed By: #### LACT #### [facility] [address] [place] [address] Dr. Megan Caballero MCH (RBC) [Entitic mass] 29.2 pg Normal 26.7-34.0 [facility] Comment on above: Performed By: #### LACT #### [facility] [address] [place] [address] Dr. Megan Caballero MCHC (RBC) [Mass/Vol] 32.9 g/dL Normal 29.9-35.2 [facility] Comment on above: Performed By: #### LACT #### [facility] [address] [place] [address] Dr. Megan Caballero MCV (RBC) [Entitic vol] 88.6 fL Normal 81.0-99.0 [facility] Comment on above: Performed By: #### LACT #### [facility] [address] [place] [address] Dr. Megan Caballero MONO # 1.1 103/ul Critically high 0.3-0.8 [facility] Comment on above: Performed By: #### LACT #### [facility] [address] [place] [address] Dr. Megan Caballero Monocytes/100 WBC (Bld) 7.9 % Normal 1.7-12.0 [facility] Comment on above: Performed By: #### LACT #### [facility] [address] [place] [address] Dr. Megan Caballero NEUT # 11.9 103/ul Critically high 1.4-6.5 [facility] Comment on above: Performed By: #### LACT #### [facility] [address] [place] [address] Dr. Megan Caballero Neutrophils/100 WBC (Bld) 85.4 % Critically high 43.0-75.0 [facility] Comment on above: Performed By: #### LACT #### [facility] [address] [place] [address] Dr. Megan Caballero Platelet mean volume (Bld) [Entitic vol] 10.2 fL Normal 9.5-13.5 [facility] Comment on above: Performed By: #### LACT #### [facility] [address] [place] [address] Dr. Megan Caballero PLT 176 103/ul Normal 150-450 [facility] Comment on above: Performed By: #### LACT #### [facility] [address] [place] [address] Dr. Megan Caballero RBC 3.77 106/ul Critically low 4.20-5.40 [facility] Comment on above: Performed By: #### LACT #### [facility] [address] [place] [address] Dr. Megan Caballero WBC 13.9 103/ul Critically high 4.0-11.0 [facility] Comment on above: Performed By: #### LACT #### [facility] [address] [place] [address] Dr. Megan Caballero CULTURE BLOODon 05-26-2022 Microscopic examination of blood, culture Culture Observations: NO GROWTH AT 5 DAYS. Normal [facility] Comment on above: Performed By: #### UACSIND #### [facility] [address] [place] [address] Dr. Megan Caballero Microscopic examination of blood, culture Culture Observations: NO GROWTH AT 5 DAYS. Normal [facility] Comment on above: Performed By: #### UACSIND #### [facility] [address] [place] [address] Dr. Megan Caballero LACTATE/LACTIC ACIDon 2022 Lactate [Moles/Vol] 1.1 mmol/L Normal 0.4-1.9 [facility] Comment on above: Performed By: #### LACT #### [facility] [address] [place] [address] Dr. Megan Caballero LIVER PROFILEon 05-26-2022 Albumin [Mass/Vol] 2.7 g/dL Critically low 3.4-5.0 [facility] Comment on above: Performed By: #### LACT #### [facility] [address] [place] [address] Dr. Megan Caballero Albumin/Globulin [Mass ratio] 0.6 {ratio} Normal [facility] Comment on above: Performed By: #### LACT #### [facility] [address] [place] [address] Dr. Megan Caballero ALP [Catalytic activity/Vol] 107 U/L Normal 46-116 [facility] Comment on above: Performed By: #### LACT #### [facility] [address] [place] [address] Dr. Megan Caballero ALT [Catalytic activity/Vol] 12 U/L Critically low 14-59 [facility] Comment on above: Performed By: #### LACT #### [facility] [address] [place] [address] Dr. Megan Caballero AST [Catalytic activity/Vol] 16 U/L Normal 15-37 [facility] Comment on above: Performed By: #### LACT #### [facility] [address] [place] [address] Dr. Megan Caballero BILI, CONJUGATED 0.1 mg/dL Normal 0.0-0.2 [facility] Comment on above: Performed By: #### LACT #### [facility] [address] [place] [address] Dr. Megan Cablalero Bilirubin [Mass/Vol] 0.6 mg/dL Normal 0.2-1.0 [facility] Comment on above: Performed By: #### LACT #### [facility] [address] [place] [address] Dr. Megan Caballero Globulin (S) [Mass/Vol] 4.2 g/dL Normal [facility] Comment on above: Performed By: #### LACT #### [facility] [address] [place] [address] Dr. Megan Caballero Protein [Mass/Vol] 6.9 g/dL Normal 6.4-8.2 [facility] Comment on above: Performed By: #### LACT #### [facility] [address] [place] [address] Dr. Megan Caballero MAGNESIUMon 05-26-2022 Magnesium [Mass/Vol] 1.9 mg/dL Normal 1.8-2.4 [facility] Comment on above: Performed By: #### MG #### [facility] [address] [address] [address] Megan Caballero NM BONE SC WH BODYon 023 NM BONE SC WH BODY EXAMINATION: NM BONE SC WH BODY HISTORY: Pain ; right hip pain, no known injury; history of breast cancer COMPARISON: No relevant comparison available. TECHNIQUE: After obtaining the patient's consent, Technetium 99m MDP was injected intravenously. Images were obtained approximately two hours later. FINDINGS: ABNORMALITIES: No suspicious radiotracer uptake. OTHER: Prior left shoulder, bilateral hips, and right knee replacement. Degenerative changes of right shoulder and left knee. IMPRESSION: 1. No findings to suggest metastatic disease or acute fracture. 2. Multifocal prior joint replacements. 3. 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 Electronically authenticated by: IHSAN PEDROZA Date: 2022-05-26 15:25 Normal [facility] PROF 14(COMP METB)on 023 Albumin [Mass/Vol] 2.4 g/dL Critically low 3.4-5.0 [facility] Comment on above: Performed By: #### LACT #### [facility] [address] [place] [address] Dr. Megan Caballero Albumin/Globulin [Mass ratio] 0.6 {ratio} Normal [facility] Comment on above: Performed By: #### LACT #### [facility] [address] [address] [address] Megan Caballero ALP [Catalytic activity/Vol] 92 U/L Normal 46-116 [facility] Comment on above: Performed By: #### LACT #### [facility] [address] [address] [address] Megan Caballero ALT [Catalytic activity/Vol] 10 U/L Critically low 14-59 [facility] Comment on above: Performed By: #### LACT #### [facility] [address] [address] [address] Megan Caballero Anion gap [Moles/Vol] 10.3 mmol/L Normal [facility] Comment on above: Performed By: #### LACT #### [facility] [address] [address] [address] Megan Caballero AST [Catalytic activity/Vol] 14 U/L Critically low 15-37 [facility] Comment on above: Performed By: #### LACT #### [facility] [address] [place] [address] Dr. Megan Caballero Bilirubin [Mass/Vol] 0.5 mg/dL Normal 0.2-1.0 [facility] Comment on above: Performed By: #### LACT #### [facility] [address] [address] [address] Megan Caballero Calcium [Mass/Vol] 8.2 mg/dL Critically low 8.5-10.1 [facility] Comment on above: Performed By: #### LACT #### [facility] [address] [place] [address] Dr. Megan Caballero Chloride [Moles/Vol] 104 mmol/L Normal 98-107 [facility] Comment on above: Performed By: #### LACT #### [facility] [address] [place] [address] Dr. Megan Caballero CO2 [Moles/Vol] 28.2 mmol/L Normal 21.0-32.0 [facility] Comment on above: Performed By: #### LACT #### [facility] [address] [place] [address] Dr. Megan Caballero Creatinine [Mass/Vol] 1.05 mg/dL Critically high 0.55-1.02 [facility] Comment on above: Performed By: #### LACT #### [facility] [address] [place] [address] Dr. Megan Caballero EGFR-AF CYMRAES >60 Normal >=60 [facility] Comment on above: Performed By: #### LACT #### [facility] [address] [place] [address] Dr. Megan Caballero EGFR-NON AF CYMRAES 50 mL/min/1.73m2 Critically low >=60 [facility] Comment on above: Performed By: #### LACT #### [facility] [address] [place] [address] Dr. Megan Caballero Globulin (S) [Mass/Vol] 3.7 g/dL Normal [facility] Comment on above: Performed By: #### LACT #### [facility] [address] [place] [address] Dr. Megan Caballero Glucose [Mass/Vol] 116 mg/dL Critically high 74-106 [facility] Comment on above: Performed By: #### LACT #### [facility] [address] [address] [address] Megan Caballero Potassium [Moles/Vol] 3.5 mmol/L Normal 3.5-5.1 [facility] Comment on above: Performed By: #### LACT #### [facility] [address] [place] [address] Dr. Megan Caballero Protein [Mass/Vol] 6.1 g/dL Critically low 6.4-8.2 [facility] Comment on above: Performed By: #### LACT #### [facility] [address] [place] [address] Dr. Megan Caballero Sodium [Moles/Vol] 139 mmol/L Normal 136-145 [facility] Comment on above: Performed By: #### LACT #### [facility] [address] [place] [address] Dr. Megan Caballero Urea nitrogen [Mass/Vol] 25.0 mg/dL Critically high 7.0-18.0 [facility] Comment on above: Performed By: #### LACT #### [facility] [address] [place] [address] Dr. Megan Caballero Urea nitrogen/Creatin ine [Mass ratio] 23.8 mg/mg Normal [facility] Comment on above: Performed By: #### LACT #### [facility] [address] [place] [address] Dr. Megan Caballero PTTon 05-26-2022 aPTT Coag (Bld) [Time] 31.1 s Normal 22.3-36.2 [facility] Comment on above: Performed By: #### PTT #### [facility] [address] [place] [address] Dr. Megan Cablalero UA RANDOMon 05-26-2022 Bilirubin Ql (U) Negative Normal NEGATIVE [facility] Comment on above: Performed By: #### UA #### [facility] [address] [place] [address] Dr. Megan Caballero Clarity (U) CLEAR Normal CLEAR [facility] Comment on above: Performed By: #### UA #### [facility] [address] [place] [address] Dr. Megan Caballero Color (U) LT. YELLOW Normal YELLOW [facility] Comment on above: Performed By: #### UA #### [facility] [address] [place] [address] Dr. Megan Caballero Glucose Ql (U) Negative Normal NEGATIVE [facility] Comment on above: Performed By: #### UA #### [facility] [address] [place] [address] Dr. Megan Caballero Hemoglobin Ql (U) MODERATE Abnormal NEGATIVE [facility] Comment on above: Performed By: #### UA #### [facility] [address] [place] [address] Dr. Megan Caballero Ketones Ql (U) Negative Normal NEGATIVE [facility] Comment on above: Performed By: #### UA #### [facility] [address] [place] [address] Dr. Megan Caballero LEUKOCYTES TRACE Abnormal NEGATIVE [facility] Comment on above: Performed By: #### UA #### [facility] [address] [place] [address] Dr. Megan Caballero Nitrite Ql (U) Negative Normal NEGATIVE [facility] Comment on above: Performed By: #### UA #### [facility] [address] [place] [address] Dr. Megan Caballero pH (U) 6.0 [pH] Normal 5-9 [facility] Comment on above: Performed By: #### UA #### [facility] [address] [place] [address] Dr. Megan Caballero SPEC GRAVITY 1.015 Normal 1.005-<=1. 025 [facility] Comment on above: Performed By: #### UA #### [facility] Laboratory [address] [place] [address] Dr. Megan Caballero UA PROTEIN 30 mg/dl Abnormal NEGATIVE/ TRACE [facility] Comment on above: Performed By: #### UA #### [facility] Laboratory [address] [place] [address] Dr. Megan Caballero Urobilinogen Qn (U) 0.2 {Renu'U}/dL Normal 0.2 - 1.0 [facility] Comment on above: Performed By: #### UA #### [facility] Laboratory [address] [place] [address] Dr. Megan Caballero XR CHEST 1 Von 05-26-2022 XR CHEST 1 V EXAM: XR CHEST 1 V HISTORY: COUGH COMPARISON: Chest x-ray 05/22/2019. TECHNIQUE: AP portable upright view of the chest is obtained. FINDINGS: The cardiomediastinal silhouette is upper limit of normal in size with stable configuration to the prior study. There is reduced lung volumes from the prior study with mild interstitial symmetric thickenings. No sizable effusion, consolidation or pneumothorax. The osseous structures are osteopenic. Severe degenerative change of the right shoulder is present. Left reverse shoulder prosthesis is present. IMPRESSION: Reduced lung volumes. No acute cardiopulmonary process identified. Emphysema is suggested. Electronically authenticated by: ALVINO BENITEZ Date: 2022-05-26 04:41 Normal [facility] CPKon 05-25-2022 CK [Catalytic activity/Vol] 73 U/L Normal 26-192 [facility] Comment on above: Performed By: #### UACSIND #### [facility] Laboratory [address] [place] [address] Dr. Megan Caballero CRPon 05-25-2022 CRP 11.9 mg/dL Critically high <=1.0 [facility] Comment on above: Performed By: #### CRP, URIC #### [facility] Laboratory [address] [place] [address] Dr. Megan Caballero [facility] SARS-CoV-2 (COVID-19) RNA YU+probe Ql (Unsp spec) Not detected Normal NOT DETECTED [facility] Comment on above: Result Comment: When diagnostic testing is negative, the possibility of a false negative should be considered in the context of a patient's recent exposures and the presence of clinical signs and symptoms consistent with SARS-CoV-2. This test is not yet approved or cleared by the [place] FDA. When there are no FDA-approved or cleared tests available, and other criteria are met, FDA can make tests available under an emergency access mechanism called an Emergency Use Authorization (EUA). The EUA for this test is supported by the Associate Chief Nurse of Health and Human Service's declaration that circumstances exist to justify the emergency use of in vitro diagnostics for the detection and/or diagnosis of the virus that causes COVID-19. This EUA will remain in effect for the duration of the COVID-19 declaration justifying emergency of IVDs, unless it is terminated or revoked by the FDA (after which the test may no longer be used). Performed By: #### U ACSIND #### [facility] Laboratory [address] [place] [address] Dr. Megan Caballero SED RATE WESTERGRENon 2022 SED RATE 55 mm/hr Critically high <=30 [facility] Comment on above: Performed By: #### SEDR #### [facility] Laboratory [address] [place] [address] Dr. Megan Caballero TSHon 05-25-2022 TSH 0.533 uIU/mL Normal 0.358-3.74 0 [facility] Comment on above: Performed By: #### TSH #### [facility] Laboratory [address] [place] [address] Dr. Megan Caballero UA (CLEAN/CATCH) WEB SITE ADMINISTRATOR/MICRO I F IND.on 05-25-2022 Bilirubin Ql (U) Negative Normal NEGATIVE [facility] Comment on above: Performed By: #### UACSIND #### [facility] Laboratory [address] [place] [address] Dr. Megan Caballero Clarity (U) CLEAR Normal CLEAR [facility] Comment on above: Performed By: #### UACSIND #### [facility] Laboratory [address] [place] [address] Dr. Megan Caballero Color (U) LT. YELLOW Normal YELLOW [facility] Comment on above: Performed By: #### UACSIND #### [facility] Laboratory [address] [place] [address] Dr. Megan Caballero Glucose Ql (U) Negative Normal NEGATIVE [facility] Comment on above: Performed By: #### UACSIND #### [facility] Laboratory [address] [place] [address] Dr. Megan Caballero Hemoglobin Ql (U) TRACE-LYSED Abnormal NEGATIVE [facility] Comment on above: Performed By: #### UACSIND #### [facility] Laboratory [address] [place] [address] Dr. Megan Caballero Ketones Ql (U) Negative Normal NEGATIVE [facility] Comment on above: Performed By: #### UACSIND #### [facility] Laboratory [address] [place] [address] Dr. Megan Caballero LEUKOCYTES Negative Normal NEGATIVE [facility] Comment on above: Performed By: #### UACSIND #### [facility] Laboratory [address] [place] [address] Dr. Megan Caballero Nitrite Ql (U) Negative Normal NEGATIVE [facility] Comment on above: Performed By: #### UACSIND #### [facility] Laboratory [address] [place] [address] Dr. Megan Caballero pH (U) 6.5 [pH] Normal 5-9 [facility] Comment on above: Performed By: #### UACSIND #### [facility] Laboratory [address] [place] [address] Dr. Megan Caballero SPEC GRAVITY 1.020 Normal 1.005-<=1. 025 [facility] Comment on above: Performed By: #### UACSIND #### [facility] Laboratory [address] [place] [address] Dr. Megan Caballero UA PROTEIN Negative Normal NEGATIVE/ TRACE [facility] Comment on above: Performed By: #### UACSIND #### [facility] Laboratory [address] [place] [address] Dr. Megan Caballero UR MICRO IND NOT INDICATED Normal [facility] Comment on above: Performed By: #### UACSIND #### [facility] Laboratory [address] [place] [address] Dr. Megan Caballero Urobilinogen Qn (U) 0.2 {Renu'U}/dL Normal 0.2 - 1.0 [facility] Comment on above: Performed By: #### UACSIND #### [facility] Laboratory [address] [place] [address] Dr. Megan Caballero URIC ACID SERUMon 05-25-2022 Urate [Mass/Vol] 4.3 mg/dL Normal 2.6-6.0 [facility] Comment on above: Performed By: #### CRP, URIC #### [facility] Laboratory [address] [place] [address] Dr. Megan Caballero XR FEMUR RTon 05-25-2022 XR FEMUR RT EXAM: XR FEMUR RT HISTORY: The patient is a 82-year-old female. Pain COMPARISON: None. FINDINGS: There is a right total hip prosthesis and a right total knee prosthesis with no radiographic evidence of hardware loosening or failure. No periprosthetic fractures are seen. No fractures are seen throughout the length of the right femur. There is some heterotopic ossification just superior to the greater tuberosity. Calcifications are seen within the lateral subcutaneous fat. IMPRESSION: No right femur fracture seen. Electronically authenticated by: JELANI MAR Date: 2022-05-24 23:28 Normal [facility] CBC W MANUAL DIFFon 05-25-19 23 ATYPICAL LYMPH # Normal [facility] Comment on above: Performed By: #### LACT #### [facility] Laboratory [address] [place] [address] Dr. Megan Caballero ATYPICAL LYMPH % Normal [facility] Comment on above: Performed By: #### LACT #### [facility] Laboratory [address] [place] [address] Dr. Megan Caballero BAND # 0.0 103/ul Normal 0.0-0.3 [facility] Comment on above: Performed By: #### LACT #### [facility] Laboratory [address] [place] [address] Dr. Megan Caballero BAND % 0 % Normal 0-5 [facility] Comment on above: Performed By: #### LACT #### [facility] Laboratory [address] [place] [address] Dr. Megan Caballero BASOM # 0.00 103/ul Normal 0.00-0.10 [facility] Comment on above: Performed By: #### LACT #### [facility] Laboratory [address] [place] [address] Dr. Megan Caballero BASOM % 0.0 % Critically low 0.2-2.0 [facility] Comment on above: Performed By: #### LACT #### [facility] Laboratory [address] [place] [address] Dr. Megan Caballero BLAST # Normal [facility] Comment on above: Performed By: #### LACT #### [facility] [address] [place] [address] Dr. Megan Caballero BLAST % Normal [facility] Comment on above: Performed By: #### LACT #### [facility] Laboratory [address] [place] [address] Dr. Megan Caballero CORRECTED WBC Normal 4.0-11.0 [facility] Comment on above: Performed By: #### LACT #### [facility] Laboratory [address] [place] [address] Dr. Megan Caballero EOS # 0.00 103/ul Normal 0.00-0.70 [facility] Comment on above: Performed By: #### LACT #### [facility] Laboratory [address] [place] [address] Dr. Megan Caballero EOS% 0.0 % Critically low 0.9-7.0 [facility] Comment on above: Performed By: #### LACT #### [facility] [address] [place] [address] Dr. Megan Caballero HCT 37.2 % Normal 36.0-48.0 [facility] Comment on above: Performed By: #### LACT #### [facility] Laboratory [address] [place] [address] Dr. Megan Caballero HGB 12.2 g/dl Normal 12.0-16.0 [facility] Comment on above: Performed By: #### LACT #### [facility] Laboratory [address] [place] [address] Dr. Megan Caballero LYMPHM # 0.23 103/ul Critically low 1.20-3.80 [facility] Comment on above: Performed By: #### LACT #### [facility] Laboratory [address] [place] [address] Dr. Megan Caballero LYMPHM% 2.0 % Critically low 20.5-60.0 [facility] Comment on above: Performed By: #### LACT #### [facility] Laboratory [address] [place] [address] Dr. Megan Caballero MCH 28.6 pg Normal 26.7-34.0 [facility] Comment on above: Performed By: #### LACT #### [facility] Laboratory [address] [place] [address] Dr. Megan Caballero MCHC 32.8 g/dl Normal 29.9-35.2 [facility] Comment on above: Performed By: #### LACT #### [facility] Laboratory [address] [place] [address] Dr. Megan Caballero MCV 87.1 fL Normal 81.0-99.0 [facility] Comment on above: Performed By: #### LACT #### [facility] Laboratory [address] [place] [address] Dr. Megan Caballero METAMYELOCYTE # Normal [facility] Comment on above: Performed By: #### LACT #### [facility] Laboratory [address] [place] [address] Dr. Megan Caballero METAMYELOCYTE % Normal [facility] Comment on above: Performed By: #### LACT #### [facility] Laboratory [address] [place] [address] Dr. Megan Caballero MONOM# 0.23 103/ul Critically low 0.30-0.80 [facility] Comment on above: Performed By: #### LACT #### [facility] Laboratory [address] [place] [address] Dr. Megan Caballero MONOM% 2.0 % Normal 1.7-12.0 [facility] Comment on above: Performed By: #### LACT #### [facility] Laboratory [address] [place] [address] Dr. Megan Caballero MPV 9.5 fL Normal 9.5-13.5 [facility] Comment on above: Performed By: #### LACT #### [facility] Laboratory [address] [address] [address] Megan Caballero MYELOCYTE # Normal [facility] Comment on above: Performed By: #### LACT #### [facility] Laboratory [address] [address] [address] Megan Caballero MYELOCYTE % Normal [facility] Comment on above: Performed By: #### LACT #### [facility] Laboratory [address] [address] [address] Megan Caballero NRBC Normal [facility] Comment on above: Performed By: #### LACT #### [facility] Laboratory [address] [address] [address] Megan Caballero PLT 197 103/ul Normal 150-450 [facility] Comment on above: Performed By: #### LACT #### [facility] Laboratory [address] [place] [address] Dr. Megan Caballero RBC 4.27 106/ul Normal 4.20-5.40 [facility] Comment on above: Performed By: #### LACT #### [facility] Laboratory [address] [place] [address] Dr. Megan Caballero RDW 13.1 % Normal 11.0-15.0 [facility] Comment on above: Performed By: #### LACT #### [facility] Laboratory [address] [place] [address] Dr. Megan Caballero SEG # 10.85 103/ul Critically high 1.40-6.50 [facility] Comment on above: Performed By: #### LACT #### [facility] Laboratory [address] [place] [address] Dr. Megan Caballero SEG % 96.0 % Critically high 43.0-75.0 [facility] Comment on above: Performed By: #### LACT #### [facility] Laboratory [address] [place] [address] Dr. Megan Caballero WBC 11.3 103/ul Critically high 4.0-11.0 [facility] Comment on above: Performed By: #### LACT #### [facility] Laboratory [address] [address] [address] Megan Caballero CRPon 05-24-2022 CRP 1.7 mg/dL Critically high <=1.0 [facility] Comment on above: Performed By: #### LACT #### [facility] Laboratory [address] [place] [address] PELVIS WO CONon 3 CT PELVIS WO CON EXAMINATION: CT PELV IS WO CON HISTORY: The patient is an 82-year-old female. Pain COMPARISON: Radiographs from 7:11 PM. TECHNIQUE: CT images were obtained through the bony pelvis and both hips without intravenous contrast and reformatted in 2 dimensions. Dose reduction techniques were achieved by using automated exposure control and/or adjustment of mA and/or kV according to patient size and/or use of iterative reconstruction technique. FINDINGS: The initial quality control projectionist views demonstrate bilateral total hip prostheses. The bone images demonstrate no lucencies around the visualized portions of either total hip prosthesis to indicate the presence of hardware loosening or osteolysis. No periprosthetic fractures are seen. No fractures or cortical discontinuities are seen throughout the bony pelvis. The sacroiliac joints are maintained. The pubic symphysis is maintained. Incidentally noted is degenerative disc disease within the lower lumbar spine, particularly at the L5-S1 level. This may contribute to the patient's hip symptoms, and this could be better evaluated with dedicated lumbar spine imaging. The soft tissue images demonstrate no abnormal fluid collections on this non-contrast enhanced study. IMPRESSION: 1. No fractures seen. 2. Degenerative disc disease of the lower lumbar spine. Electronically authenticated by: JELANI MAR Date: 2022-05-24 21:51 Normal [facility] PROF CHEM 8 (BAS METB)on Anion gap [Moles/Vol] 12.6 mmol/L Normal [facility] Comment on above: Performed By: #### LACT #### [facility] Laboratory [address] [place] [address] Dr. Megan Caballero Calcium [Mass/Vol] 8.6 mg/dL Normal 8.5-10.1 [facility] Comment on above: Performed By: #### LACT #### [facility] Laboratory [address] [place] [address] Dr. Megan Caballero Chloride [Moles/Vol] 102 mmol/L Normal 98-107 [facility] Comment on above: Performed By: #### LACT #### [facility] Laboratory [address] [place] [address] Dr. Megan Caballero CO2 [Moles/Vol] 28.6 mmol/L Normal 21.0-32.0 [facility] Comment on above: Performed By: #### LACT #### [facility] Laboratory [address] [place] [address] Dr. Megan Caballero Creatinine [Mass/Vol] 0.73 mg/dL Normal 0.55-1.02 [facility] Comment on above: Performed By: #### LACT #### [facility] Laboratory [address] [place] [address] Dr. Megan Caballero EGFR-AF CYMRAES >60 Normal >=60 [facility] Comment on above: Performed By: #### LACT #### [facility] Laboratory [address] [place] [address] Dr. Megan Caballero EGFR-NON AF CYMRAES >60 Normal >=60 [facility] Comment on above: Performed By: #### LACT #### [facility] Laboratory [address] [place] [address] Dr. Megan Caballero Glucose [Mass/Vol] 121 mg/dL Critically high 74-106 [facility] Comment on above: Performed By: #### LACT #### [facility] Laboratory [address] [place] [address] Dr. Megan Caballero Potassium [Moles/Vol] 3.2 mmol/L Critically low 3.5-5.1 [facility] Comment on above: Performed By: #### LACT #### [facility] Laboratory [address] [place] [address] Dr. Megan Caballero Sodium [Moles/Vol] 140 mmol/L Normal 136-145 [facility] Comment on above: Performed By: #### LACT #### [facility] Laboratory [address] [place] [address] Dr. Megan Caballero Urea nitrogen [Mass/Vol] 15.0 mg/dL Normal 7.0-18.0 [facility] Comment on above: Performed By: #### LACT #### [facility] Laboratory [address] [address] [address] Megan Caballero Urea nitrogen/Creatin ine [Mass ratio] 20.5 mg/mg Normal [facility] Comment on above: Performed By: #### LACT #### [facility] Laboratory [address] [address] [address] Megan Caballero [facility] 54 mm/hr Critically high <=30 [facility] Comment on above: Performed By: #### SEDR #### [facility] Laboratory [address] [address] [address] Megan Caballero CNOVon 05-30-2020 CNOV Office Visit (UROLAV ) ANGELIKA MUIR ([id number]) 1940 [address] [place] [employer] Date Time Provider Department 05/30/20 6:00 PM NEGRO POMPA During your visit today, we recorded the following information about you: Pulse Blood pressure Weight 101/minute 141/67 98.4 kg Negro Pompa MD 05/30/2020 6:55 PM Signed [facility]IC[facility] RECONSTRUCTIVE SURGERY HISTORY OF PRESENT ILLNESS: Angelika Muir is a 80 year old F female here today for a follow up after sling incision and bladder botox injection 05/01/20. Patient reports no improvement in UI. Otherwise feeling well. HISTORIES: PAST MEDICAL HISTORY PAST MEDICAL HISTORY Diagnosis Date - Bronchitis - Hx: UTI (urinary tract infection) PAST SURGICAL HISTORY PAST SURGICAL HISTORY Procedure Laterality Date - ANESTHESIA SHOULDER: REPLACE Left 2016 at [facility] - needed two procedures - ANESTHESIA TOTAL HIP ARTHROPLASTY 2002 right hip - APPENDECTOMY HX - CATARACT SURGERY, COMPLEX - REMOVAL GALLBLADDER - TONSILLECTOMY HX - TOTAL HIP REPLACEMENT Left 2005 - TOTAL KNEE REPLACEMENT Right 2019 FAMILY HISTORY History reviewed. No pertinent family history. SOCIAL HISTORY Social History Tobacco Use - Smoking status: Former Smoker - Smokeless tobacco: Never Used Substance Use Topics - Alcohol use: Not on file - Drug use: Not on file MEDICATIONS: Current Outpatient Medications Medication Sig - estradiol (ESTRACE) 0.01 % (0.1 mg/gram) vaginal cream Use 1 g vaginally two times a week. - celecoxib (CELEBREX) 200 mg capsule Take 200 mg by mouth once daily. - KLOR-CON M20 20 mEq tablet Take 20 mEq by mouth once daily. - sertraline (ZOLOFT) 50 mg tablet Take 50 mg by mouth as needed. - Potassium Bicarb-Citric Acid (K-LYTE) 25 mEq disintegrating tablet Take 25 mEq by mouth. - metoprolol succinate ER (TOPROL XL) 50 mg 24 hr tablet 25 mg once daily. - Potassium Chloride 25 mEq pack Take 25 mEq by mouth. - terbinafine HCl (LAMISIL) 250 mg tablet terbinafine HCl 250 mg tablet - solifenacin 10 mg tablet Take 5 mg by mouth once daily. No current facility-administered medications for this visit. CURRENT ALLERGIES: Allergies As of Date: 05/30/2020 Allergen Noted Reaction TAPE [ADHESIVE TAPE (ROSINS)] 06/28/2012 Rash Fully Assessed 05/30/2020 PHYSICAL EXAM: General: No acute distress, well appearing : Deferred at this visit Ext: BLE edema PVR: 71 mL via bladder US IMPRESSION: 80 yo F s/p TVT-O with UUI s/p sling incision and bladder botox 05/01/20, no improvement in UI. Previously refractory to multiple medications. - Discussed LE edema and diuretic in the afternoon - Discussed Pure Wick for early AM incontinence but unlikely to catch a large gush - Discussed r/b of SNM vs. Repeat botox at 200U. Patient will consider higher dose botox All questions and concerns were addressed. MD Kell Salas MA 05/30/2020 6:32 PM Signed PVR = 71 ml Via bladder scan. Referring Provider: NEGRO POMPA [[id number]] Allergies As of Date: 05/30/2020 Noted Allergy Reaction TAPE (ADHESIVE TAPE (ROSINS)) 06/28/2012 2 - Rash Date Reviewed: 05/30/2020 Reviewed by: Kell Arauz MA - Fully Assessed Reason for Visit: Post Op [174] Cmt: post op follow up Primary Visit Diagnosis:Urge urinary incontinence [N39.41] Prescriptions as of 05/30/2020 Sig: ESTRADIOL 0.01% (0.1 MG/GRAM)* Use 1 g vaginally two times a* SERTRALINE 50 MG TABLET Take 50 mg by mouth as needed* POTASSIUM BICARBONATE-CITRIC * Take 25 mEq by mouth. METOPROLOL SUCCINATE ER 50 MG* 25 mg once daily. POTASSIUM CHLORIDE 25 MEQ ORA* Take 25 mEq by mouth. CELECOXIB 200 MG CAPSULE Take 200 mg by mouth once kasey* KLOR-CON M20 MEQ TABLET,EXTEN* Take 20 mEq by mouth once kasey* TERBINAFINE HCL 250 MG TABLET terbinafine HCl 250 mg tablet Problem List As Of Date 05/30/2020 Noted Resolved Breast CA [C50.919] 06/28/2012 History of breast cancer [Z85.3] 01/10/2014 Visit Notes: >> Kellclementina Arauz MA [facility] May 30, 2020 6:31 PM Status: Signed PVR = 71 ml Via bladder scan. Medications Discontinued During This Encounter Prescriptions - solifenacin 10 mg tablet (Discontinued) Take 5 mg by mouth once daily. Encounter Status:Closed by NEGRO POMPA MD on 05/30/20 Normal [facility] CNCOon 05-28-2020 CNCO Letter Text [facility] ANES POSTPROC EVALon 021 ANES POSTPROC EVAL HNO ID: [id number] Author: Ihsan Gamino Service: Anesthesiology Author Type: Anesthesiologist Type: Anesthesia Postprocedure Evaluation Filed: 05/01/2020 4:49 PM Note Text: POST ANESTHESIA EVALUATION NOTE : 1940 Procedure Summary Date: 05/01/20 Room / Location: [address] / [facility] Anesthesia Start: 1504 Anesthesia Stop: 1620 Procedures: REVISE SLING TX FOR STRESS INCONTINENCE FEMALE (N/A Vagina ) CYSTOSCOPY (N/A Bladder) Diagnosis: Urge urinary incontinence (Urge urinary incontinence [N39.41]) Surgeons: Negro Pompa Responsible Provider: Ihsan Gamino Anesthesia Type: general ASA Status: 3 Anesthesia Type: general Last vitals Vitals Value Taken Time BP 137/72 05/01/20 1645 Temp 36.2 ?C (97.2 ?F) 05/01/20 1645 Pulse 77 05/01/20 1634 Resp 15 05/01/20 1645 SpO2 97 % 05/01/20 1645 Vitals shown include unvalidated device data. Post Anesthesia Patient Status Patient Evaluation: PACU. PACU/ICU Patient Condition: stable. Anticipated Disposition: phase 2 then home. Neurological Status: aware and responsive. Pulmonary Status: breathing comfortably on room air Airway Control: returned to baseline unsupported. Cardiovascular Status: stable. Pain Management: clinically adequate Postoperative Hydration: acceptable. Intraoperative Events: no significant anesthesia events Post Operative Nausea/Vomiting Status: Anesthetic Observations: no significant anesthetic observations Recommendation: continue current plan of care. SIGNATURE: Ihsan Gamino MD PATIENT NAME: Angelika Muir DATE: May 01, 2020 TIME: 4:49 PM CSN: [id number] [facility] ANES PRE-OPon 05-01-2020 ANES PRE-OP HNO ID: [id number] Author: Ihsan Gamino Service: Anesthesiology Author Type: Anesthesiologist Type: Anesthesia Preprocedure Evaluation Filed: 05/01/2020 3:54 PM Note Text: ANESTHESIOLOGY DAY OF SURGERY NOTE : 1940 Procedure(s) (LRB): REVISE SLING TX FOR STRESS INCONTINENCE FEMALE (N/A) CYSTOSCOPY (N/A) Surgeon(s): Negro Pompa Estimated body mass index is 35.02 kg/m? as calculated from the following: Height as of 01/09/20: 167.6 cm (5' 6 ). Weight as of 01/09/20: 98.4 kg (217 lb). Most recent hematocrit and potassium results: No results found for this basename: HCT,HEMATOCRIT,K,POTASSIUM Relevant Problems NEURO-PSYCH (+) History of breast cancer I - PHYSICAL EVALUATION AIRWAY Patient intubated: No. Tracheostomy tube not present Mallampati: II. TM distance: >3 FB. Neck ROM: full ROM without neurological symptoms. Mouth opening: adequate. Short neck: no. Thick neck: no DENTAL Dental findings: teeth intact. Additional exam findings: no II - ANESTHESIA PLAN ASA Score: 3 Anesthetic Plan: general Airway type: LMA The patient is not a current smoker. NPO Status: adequate Monitoring plan: standard ASA. Postoperative analgesic plan: multimodal analgesia. Anesthetic Risks, Benefits, Alternatives, Personnel Discussed. Consent obtained from: patient.Patient / Surrogate agrees to blood products: blood products not planned DNR status not reviewed with patient and/or family prior to surgery. Significant changes in the patient condition since the History and Physical, not otherwise documented in primary service progress note: no. Potential Anesthesia issues that may suggest increased risk of complications or contraindication to planned procedure: none. Vitals Value Taken Time BP 154/76 05/01/20 1449 Pulse 98 05/01/20 1449 Resp 18 05/01/20 144 Temp 36.4 ?C (97.5 ?F) 05/01/20 144 SpO2 99 % 05/01/201448 Facility-Administered Medications as of 05/01/2020 Medication Dose Route Frequency - [COMPLETED] acetaminophen 1,000 mg tab(s) (TYLENOL) 1,000 mg ORAL Pre-Op Once - lactated ringers infusion 30 mL/hr INTRAVENOUS CONTINUOUS - lidocaine 10 mg/mL (1 %) 1-2 mg injection (XYLOCAINE) 0.1-0.2 mL INTRADERMAL PRN - lactated ringers infusion 5-30 mL/hr INTRAVENOUS CONTINUOUS - [COMPLETED] ceFAZolin iv piggyback 2 g in D5W (iso-osmotic) 100 mL (ANCEF) 2 g INTRAVENOUS Pre-Op Once Outpatient Medications as of 05/01/2020 Medication Sig - Potassium Bicarb-Citric Acid (K-LYTE) 25 mEq disintegrating tablet Take 25 mEq by mouth. - metoprolol succinate ER (TOPROL XL) 50 mg 24 hr tablet 25 mg once daily. - Potassium Chloride 25 mEq pack Take 25 mEq by mouth. - terbinafine HCl (LAMISIL) 250 mg tablet terbinafine HCl 250 mg tablet - KLOR-CON M20 20 mEq tablet Take 20 mEq by mouth once daily. - sertraline (ZOLOFT) 50 mg tablet Take 50 mg by mouth as needed. - solifenacin 10 mg tablet Take 5 mg by mouth once daily. - celecoxib (CELEBREX) 200 mg capsule Take 200 mg by mouth once daily. I have interviewed and examined the patient. I have reviewed the medical record and/or the pre-anesthesia evaluation, pertinent labs, and test results. This contains updated information obtained within 48 hours of Surgery/Procedure. SIGNATURE: Ihsan Gamino MD PATIENT NAME: Angelika Muir DATE: May 01, 2020 TIME: 3:53 PM CSN: [id number] [facility] HISTORY PHYSICALon HISTORY PHYSICAL HNO ID: [id number] Author: Negro Pompa Service: Urology Author Type: Physician Type: HANDP Filed: 05/01/2020 1:23 PM Note Text: Preoperative HANDP Chief complaint: Patient is here today for management of refractory urge urinary incontinence History, update from last visit: Previous notes were reviewed, no significant new changes. Patient is doing well, denies any new concerning symptoms. Examination: Patient is awake and alert, and oriented. Chest: unlabored respirations Abdomen: nondistended All lab results, imaging reviewed and there was no change. Assessment and plan of management: Patient is here today for management of urge urinary incontinence Plan for midurethral sling release, cystoscopy with 100U botox injection All patient's questions were discussed in detail, outline of procedure and recovery discussed. Surgical site : n/a, vagina and bladder Negro Pompa MD May 01, 2020 1:22 PM [facility] OPERATIVE NOon 05-01-2020 OPERATIVE NO HNO ID: [id number] Author: Negro Pompa Service: Urology Author Type: Physician Type: Operative Report Filed: 05/01/2020 5:00 PM Note Text: OPERATIVE/PROCEDURE REPORT LOG ID: [id number] SURGERY/PROCEDURE DATE: 05/01/2020 INCISION/PROCEDURE START TIME: 3:28 PM INCISION CLOSE/PROCEDURE END TIME: 4:05 PM SURGEON(S)/PROCEDURALIST(S) AND VEHICLE MONITOR TECHNICIAN(S): Surgeon(s) and Role: * Negro Pompa - Primary No Additional Staff SURGERY/PROCEDURE(S): Incision of synthetic midurethral sling Cystoscopy with bladder botox injection 100U ANESTHESIA: Monitored Anesthesia Care FINDINGS: Midurethral sling near the bladder neck, released when incised. 1cm of mesh was excised. Vaginal atrophy SURGERY/PROCEDURE DETAILS: Operative indications: An 80 yo female with history of TOT sling placement referred for evaluation of refractory urge urinary incontinence. She had no improvement in incontinence after sling placement but has had a subjective low urinary flow. Cystoscopy showed a normal bladder without mesh exposure. UDS revealed phasic DO without PERNELL. Symptoms are refractory to medical management. After discussion of treatment options, the patient elected for bladder botox injection. Given possible contribution by the sling with no benefit, she also elected to undergo sling incision. The risks, benefits, alternatives, and personnel involved with the surgery were discussed. The patient consented to proceed with surgery, and informed consent was signed. A preoperative huddle was performed in the preop area. Procedure: The patient was brought to the operating room and placed supine on the operating table. Prior to induction of anesthesia, IV antibiotics were administered. Sequential compression stockings were placed. After induction of anesthesia, patient was placed in dorsal lithotomy position. The genitalia was prepped and draped in standard surgical fashion. A surgical time-out was performed. The lonestar retractor was placed. An Allis clamp was placed on the distal urethra. lidocaine with epinephrine was used to hydrodissect the anterior vaginal wall overlying the sling. A 15 blade was used to make an a 2 cm vertical midline incision through the vaginal epithelium. Then, using Metzenbaum scissors, the vaginal epithelium was lifted off of the sling. A right angle dissector was then passed behind the sling. The sling was incised in the midline and immediately apprx 1cm. 0.5m mesh was then excised bilaterally. The vaginal epithelium was closed in the midline with 2-0 vicryl in running, locking fashion. The lone star was removed. Hemostasis was excellent. We then proceed with bladder botox injections. A rigid cystoscope with 30 degree lens was inserted atraumatically into the bladder. Pancystoscopy was performed and the bladder was normal appearing. 100 international unit(s) was administered to detrusor musculature in 10 injections of 1.0 cc per injection site. There was mild bleeding after the last injection at the trigone. Bugbee electrocautery was used with excellent hemostasis. The bladder was emptied and cystoscope removed. The patient was then cleaned, placed back in a supine position, extubated, and transferred to a stretcher and then to PACU in stable condition. Dr. Negro Pompa was present for the entirety of the case. 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 SIGNATURE: Negro Pompa MD PATIENT NAME: Angelika Muir DATE: May 01, 2020 TIME: 4:45 PM PAGER/CONTACT #: Normal [facility] SURGICAL PATHOLOGYon 021 SURGICAL PATHOLOGY Specimen originated from [facility] Specimen #: [id number] Submitting Physician: NEGRO POMPA FINAL DIAGNOSIS Vaginal mesh/sling - Squamous mucosa and fibrotic soft tissue with foreign material consistent with mesh. AES/sandrine 05/06/2020 Bette Mckeon M.D. (Electronic Signature) _ SPECIMEN SUBMITTED A: VAGINAL MESH/SLING CLINICAL DATA URGE URINARY INCONTINENCE; INCISION OF MIDURETHRAL SLING, CYSTOSCOPY WITH INJECTION OF BOTOX GROSS DESCRIPTION A. Received in formalin designated vaginal mesh/sling is a hernandez-brown exophytic and cauterized fragment of tissue that measures 1 x 0.6 x 0.2 cm. Intertwined within the tissue is a blue mesh. The specimen is entirely submitted in one cassette. DOUG/evens 05/02/2020 Gross examination performed at [facility], [id number] [address] [place] [place] [address] Date of Report: 05/06/2020 Date of Procedure: 05/01/2020 Date of Receipt: 05/02/2020 Submitted by: NEGRO POMPA Location: [facility] Diagnostic interpretation performed at [facility], [address] [place] [id number]. [place] Number: [id number] [facility] HOSPon 04-19-2020 HOSP Patient:Nany Muir MRN: Height:5' 6 (1.676 m) Weight:No patient weight recorded within the last 30 days. Outpatient Medications as of 05/01/20: sertraline (ZOLOFT) 50 mg tablet Potassium Bicarb-Citric Acid (K-LYTE) 25 mEq disintegrating tablet metoprolol succinate ER (TOPROL XL) 50 mg 24 hr tablet Potassium Chloride 25 mEq pack terbinafine HCl (LAMISIL) 250 mg tablet solifenacin 10 mg tablet celecoxib (CELEBREX) 200 mg capsule KLOR-CON M20 20 mEq tablet Admission/Clinic Administered Medications as of 05/01/20: lactated ringers infusion lidocaine 10 mg/mL (1 %) 1-2 mg injection (XYLOCAINE) lactated ringers infusion ceFAZolin iv piggyback 2 g in D5W (iso-osmotic) 100 mL (ANCEF) Problem List: Breast CA (HCC) [C50.919] History of breast cancer [Z85.3] Allergies: Tape [Adhesive Tape (Rosins)] Date Verified: 05/01/20 Lab Values No results within the last 30 days for the following basenames: K,HCT No progress notes entered within the past 30 days [facility] Provider Letteron 11-21-2019 Provider Letter (Inserted Image. Patricia ble to display) November 21, 2019 ANGELIKA MUIR [address] [place] [id number] ANGELIKA MUIR 1940 Dear Angelika, You missed your scheduled appointment on: November 21, 2019_ and the purpose of this letter is to inform you of our *No Show Policy*. Our appointment slots fill rapidly and when we have a no show appointment that time is lost. We could have used that time slot to care for a patient who needed to see one of our providers. Therefore, we ask that you call 24 hours in advance to cancel your appointment. After your second no show within a twelve (12) month period, you will be assessed a $30 charge. This policy is in place so that we can meet the needs of all of our patients and we do appreciate your understanding. Sincerely, [facility]/Dr De La Cruz [facility] Ambulatory Clinical Summaryo n 10-27-2019 Ambulatory Clinical Summary {[id number]}CD:[id number] [facility] Patient Educationon 10-24-19 Patient Education Family Medicine Overactive Bladder, Adult The bladder has two functions that are totally opposite of the other. One is to relax and stretch out so it can store urine (fills like a balloon), and the other is to contract and squeeze down so that it can empty the urine that it has stored. Proper functioning of the bladder is a complex mixing of these two functions. The filling and emptying of the bladder can be influenced by: ? The bladder. ? The spinal cord. ? The brain. ? The nerves going to the bladder. ? Other organs that are closely related to the bladder such as prostate in males and the vagina in females. As your bladder fills with urine, nerve signals are sent from the bladder to the brain to tell you that you may need to urinate. Normal urination requires that the bladder squeeze down with sufficient strength to empty the bladder, but this also requires that the bladder squeeze down sufficiently long to finish the job. In addition the sphincter muscles, which normally keep you from leaking urine, must also relax so that the urine can pass. Coordination between the bladder muscle squeezing down and the sphincter muscles relaxing is required to make everything happen normally. With an overactive bladder sometimes the muscles of the bladder contract unexpectedly and involuntarily and this causes an urgent need to urinate. The normal response is to try to hold urine in by mp the sphincter muscles. Sometimes the bladder contracts so strongly that the sphincter muscles cannot stop the urine from passing out and incontinence occurs. This kind of incontinence is called urge incontinence. Having an overactive bladder can be embarrassing and awkward. It can keep you from living life the way you want to. Many people think it is just something you have to put up with as you grow older or have certain health conditions. In fact, there are treatments that can help make your life easier and more pleasant. CAUSES Many things can cause an overactive bladder. Possibilities include: ? Urinary tract infection or infection of nearby tissues such as the prostate. ? Prostate enlargement. ? In women, multiple pregnancies or surgery on the uterus or urethra. ? Bladder stones, inflammation or tumors. ? Caffeine. ? Alcohol. ? Medications. For example, diuretics (drugs that help the body get rid of extra fluid) increase urine production. Some other medicines must be taken with lots of fluids. ? Muscle or nerve weakness. This might be the result of a spinal cord injury, a stroke, multiple sclerosis or Parkinson's disease. ? Diabetes can cause a high urine volume which fills the bladder so quickly that the normal urge to urinate is triggered very strongly. SYMPTOMS ? Loss of bladder control. You feel the need to urinate and cannot make your body wait. ? Sudden, strong urges to urinate. ? Urinating 8 or more times a day. ? Waking up to urinate two or more times a night. DIAGNOSIS To decide if you have overactive bladder, your healthcare provider will probably: ? Ask about symptoms you have noticed. ? Ask about your overall health. This will include questions about any medications you are taking. ? Do a physical examination. This will help determine if there are obvious blockages or other problems. ? Order some tests. These might include: ? A blood test to check for diabetes or other health issues that could be contributing to the problem. ? Urine testing. This could measure the flow of urine and the pressure on the bladder. ? A test of your neurological system (the brain, spinal cord and nerves). This is the system that senses the need to urinate. Some of these tests are called flow tests, bladder pressure tests and electrical measurements of the sphincter muscle. ? A bladder test to check whether it is emptying completely when you urinate. ? Cytoscopy. This test uses a thin tube with a tiny camera on it. It offers a look inside your urethra and bladder to see if there are problems. ? Imaging tests. You might be given a contrast dye and then asked to urinate. X-rays are taken to see how your bladder is working. TREATMENT An overactive bladder can be treated in many ways. The treatment will depend on the cause. Whether you have a mild or severe case also makes a difference. Often, treatment can be given in your healthcare provider's office or clinic. Be sure to discuss the different options with your caregiver. They include: ? Behavioral treatments. These do not involve medication or surgery: ? Bladder training. For this, you would follow a schedule to urinate at regular intervals. This helps you learn to control the urge to urinate. At first, you might be asked to wait a few minutes after feeling the urge. In time, you should be able to schedule bathroom visits an hour or more apart. ? Kegel exercises. These exercises strengthen the pelvic floor muscles, which support the bladder. By toning these muscles, they can help control urination, even if the bladder muscles are overactive. A specialist will teach you how to do these exercises correctly. They will require daily practice. ? Weight loss. If you are obese or overweight, losing weight might stop your bladder from being overactive. Talk to your healthcare provider about how many pounds you should lose. Also ask if there is a specific program or method that would work best for you. ? Diet change. This might be suggested if constipation is making your overactive bladder worse. Your healthcare provider or a bottom man can explain ways to change what you eat to ease constipation. Other people might need to take in less caffeine or alcohol. Sometimes drinking fewer fluids is needed, too. ? Protection. This is not an actual treatment. But, you could wear special pads to take care of any leakage while you wait for other treatments to take effect. This will help you avoid embarrassment. ? Physical treatments. ? Electrical stimulation. Electrodes will send gentle pulses to the nerves or muscles that help control the bladder. The goal is to strengthen them. Sometimes this is done with the electrodes outside of the body. Or, they might be placed inside the body (implanted ). This treatment can take several months to have an effect. ? Medications. These are usually used along with other treatments. Several medicines are available. Some are injected into the muscles involved in urination. Others come in pill form. Medications sometimes prescribed include: ? Anticholinergics. These drugs block the signals that the nerves deliver to the bladder. This keeps it from releasing urine at the wrong time. Researchers think the drugs might help in other ways, too. ? Imipramine. This is an antidepressant. But, it relaxes bladder muscles. ? Botox. This is still experimental. Some people believe that injecting it into the bladder muscles will relax them so they work more normally. It has also been injected into the sphincter muscle when the sphincter muscle does not open properly. This is a temporary fix, however. Also, it might make matters worse, especially in older people. ? Surgery. ? A device might be implanted to help manage your nerves. It works on the nerves that signal when you need to urinate. ? Surgery is sometimes needed with electrical stimulation. If the electrodes are implanted, this is done through surgery. ? Sometimes repairs need to be made through surgery. For example, the size of the bladder can be changed. This is usually done in severe cases only. HOME CARE INSTRUCTIONS ? Take any medications your healthcare provider prescribed or suggested. Follow the directions carefully. ? Practice any lifestyle changes that are recommended. These might include: ? Drinking less fluid or drinking at different times of the day. If you need to urinate often during the night, for example, you may need to stop drinking fluids early in the evening. ? Cutting down on caffeine or alcohol. They can both make an overactive bladder worse. Caffeine is found in coffee, tea and sodas. ? Doing Kegel exercises to strengthen muscles. ? Losing weight, if that is recommended. ? Eating a healthy and balanced diet. This will help you avoid constipation. ? Keep a journal or a log. You might be asked to record how much you drink and when, and also when you feel the need to urinate. ? Learn how to care for implants or other devices, such as pessaries. SEEK MEDICAL CARE IF: ? Your overactive bladder gets worse. ? You feel increased pain or irritation when you urinate. ? You notice blood in your urine. ? You have questions about any medications or devices that your healthcare provider recommended. ? You notice blood, pus or swelling at the site of any test or treatment procedure. ? You have an oral temperature above 102? F (38.9? C). SEEK IMMEDIATE MEDICAL CARE IF: You have an oral temperature above 102? F (38.9? C), not controlled by medicine. Document Released: 01/02/2010 Document Revised: 05/30/2012 Document Reviewed: 01/02/2010 ExitCare? Patient Information ?2013 [employer]. Mireya [facility] Urology Office/Clinic Noteon 10-24-2019 Urology Office/Clinic Note Chief Complaint This patient is an 79-year-old female with a history of overactive bladder and stress incontinence. She underwent TOT mid urethral sling in May 2019. She continues to have urgency incontinence despite the fact that her PVR is 85 cc. She is been treated with tolterodine and oxybutynin both of which were unsuccessful. She is here today for follow-up visit. HPI Staff Previous dx: urinary incontinence w/o sensory awareness, urethral stricture, and hx of kidney stones. Pt. is taking Tolterodine 2 mg bid and states she has not seen an improvement with her urination. S/p TOT sling 05/31/2019. Dysuria: no Incomplete bladder emptying: pt. feels empty PVR 85ml Hematuria: no Frequency: q2.5hr Urgency: yes Nocturia: no, but pt. states that since the TOT, once she wakes up and move any part of her body, she will soil her pants and pt. uses 3 pads/night Stream: average Leaking: yes Post void dripping: no Wearing pads/ Depends: pads, pt. tries to only use 2/day Urge incontinence: yes Stress incontinence: no Abdominal pain: no Flank pain: due to back troubles Sexual complaints: History of Present Illness reviewed UA. Reviewed PVR. There have been no associated fever, chills, flank pain or blood in the urine. Pt is not having any burning with urination. Review of Systems PHQ Score Initial Depression Screen Score: 0 ROS - Provider Constitutional: denies weight loss, denies hot flashes. Eyes: denies eye problems. Gastrointestinal: denies nausea, denies vomiting. Cardiovascular: denies chest pain or angina. Integumentary: no dryness Musculoskeletal: denies musculoskeletal symptoms. ENMT: denies otolaryngeal symptoms. Respiratory: no shortness of breath. Heme/Lymph: denies easy bleeding tendency, denies easy bruising tendency. Psychiatric: no confusion, no anxiety. Genitourinary: denies vaginal discharge, mild incontinence, denies dysuria, mild hematuria, denies urinary frequency, denies amenorrhea, denies menorrhagia, denies abnormal bleeding, denies pelvic pain, denies genital sores, and denies decreased libido. mild, urgency Physical Exam Vitals & Measurements HR: 94(Peripheral) RR: 16 BP: 126/72 HT: 170 cm WT: 100 kg BMI: 34.6 General Appearance: alert , no acute distress, well nourished, well developed female. Genitourinary: bladder nonpalpable, no flank pain. Assessment/Plan Tolterodine has been discontinued as has oxybutynin. We will start Vesicare 10 mg 1 tablet a day she has 30 tablets with 1 refill. We will plan to see her back in the office in 1 month with PVR determination. 1. Urinary incontinence (R32: Unspecified urinary incontinence) S/P TOT sling done 05/31/19. Pt was started on Tolterodine 2mg BID at last encounter and she does not see any improvement since starting this medication. D/C Tolterodine Pt is still doing timed voids every 2 hours. Pt states that she is using 2 pads a day when she hears water or has hands in water. Pt states that she is using 3 pads a night. Pt was tried on Oxybutynin in the past and didnt work. Will try Pt on Vesicare 10mg and pt was advised to use the good RX card. Pt will return in 1 month. Ordered: PVR urine/bladder capacity/[place] [address] Urnls Dip Stick Auto w/o Microscopy POC 44063 2. Other urethral stricture, female (N35.82: Other urethral stricture, female) Cysto/UD done 11/01/18. PVR today was 85ml. Pt denies any infections since the last encounter. 3. History of kidney stones (Z87.442: Personal history of urinary calculi) Pt is still on Klor-con past stones, no recent images. 4. Microhematuria (R31.29: Other microscopic hematuria) UA shows TRACE in urine today. Orders: solifenacin, 10 mg = 1 tab(s), Oral, Daily, # 30 tab(s), Refills(s) 1, Pharmacy: [facility] 536, 170, cm, 10/24/19 14:15:00 EDT, Height/Length Measured, 100, kg, 10/24/19 14:15:00 EDT, Weight Measured I have reviewed the previous health record information and history for this patient from Dr. De La Cruz Follow-up With When Contact Information Jono Faust MD, Bandar Devine In 1 month [facility] [address], [place] [address]- Additional Instructions: w/ PVR Patient Education Overactive Bladder, Adult I, Lida Ybarra, personally scribed for Dr. De La Cruz on 10/24/2019 14:56:01. . Documentation recorded by the scribe, Lida Ybarra, accurately reflects the services(s) I performed and decisions made by me. Authenticated by Dr. De La Cruz on 10/24/2019 14:59:06. Problem List/Past Medical History Ongoing Arthritis Asthma Breast cancer Female stress incontinence Frequent urination History of kidney stones Kidney stones Microhematuria Other urethral stricture, female Urge incontinence Urinary incontinence without sensory awareness Urinary incontinence, mixed Urinary urgency Historical No qualifying data Procedure/Surgical History Sling procedure of bladder neck (05/31/2019), Urodynamics (04/20/2019), Knee replacement (01/20/2019), Cystourethroscopy with dilation of urethral stricture (11/01/2018), Appendectomy, Cataract care, Cholecystectomy, Colonoscopy, Hip replacement, Tonsillectomy. Medications ammonium lactate Top 12% Crm CeleBREX 200 mg Cap, 200 mg= 1 cap(s), Oral, Daily Klor-Con 10 mEq, 10 mEq= 1 tab(s), Oral, BID metoprolol 50 mg ER Tab, 50 mg= 1 tab(s), Oral, Daily sertraline 50 mg Tab, 100 mg= 2 tab(s), Oral, Daily terbinafine 250 mg Tab, 250 mg= 1 tab(s), Oral, Daily tolterodine 2 mg Tab, 2 mg= 1 tab(s), Oral, BID, 1 refills Allergies No Known Allergies Social History Alcohol - Low Risk, 10/25/2018 Current, 1-2 times per year, 11/24/2018 Substance Abuse - Denies Substance Abuse, 07/11/2019 Tobacco - Denies Tobacco Use, 07/11/2019 Former smoker, quit more than 30 days ago Tobacco Use:., 08/24/2019 Family History Heart disease: Father. Hypertension: Father. Lab Results Ambulatory Point of Care Results Bilirubin Urine Dipstick: Negative (10/24/19 14:03:00) Blood Urine Dipstick: Trace-intact (10/24/19 14:03:00) Glucose Urine Dipstick: Negative (10/24/19 14:03:00) Ketones Urine Dipstick: Negative (10/24/19 14:03:00) Leukocytes Urine Dipstick: Negative (10/24/19 14:03:00) Nitrite Urine Dipstick: Negative (10/24/19 14:03:00) Protein Urine Dipstick: Negative (10/24/19 14:03:00) Specific [place] Urine Dipstick: 1.025 (10/24/19 14:03:00) Urine Appearance Urine Dipstick: Clear (10/24/19 14:03:00) Urine Color Urine Dipstick: Yellow (10/24/19 14:03:00) Urobilinogen Urine Dipstick: Normal 0.2-1 EU/dl (10/24/19 14:03:00) pH Urine Dipstick: 5.5 (10/24/19 14:03:00) Diagnostic Results PVR was reviewed at 85 cc. Urinalysis shows no infection. Normal [facility] Comment on above: Result Comment: Electronically Signed By : Jono Faust MD, Bandar Devine\.br\Date and Time Signed: 10/24/19 14:59 EDT\.br\Electronically Co-Signed By: Lida Ybarra MA\.br\Date and Time Co-Signed: 10/24/19 14:56 EDT Ambulatory Clinical Summaryo n 08-24-2019 Ambulatory Clinical Summary {[id number] Normal [facility] Reminderson 04-24-2019 Reminders - From: Kristen Rivero To: EU - Clinical; Sent: 04/04/2019 15:20:13 EST Show up: 04/24/2019 07:00:00 EST Subject: Urodynamics Report Due Date/Time: 04/24/2019 07:00:00 EST Reminder/Recall Show Dr. De La Cruz results, patient may need scheduled for Cysto/TVT sling Test: Urodynamics Test being done 04/20/19 @ [facility] From: Fili Morgan MA (EU - Clinical) To: Jono Faust MD, Bandar Devine; Sent: 04/24/2019 08:02:48 EST Show up: 04/24/2019 08:02:00 EST Subject: RE: Urodynamics Report Please review Urodynamics report. Per message, Pt may need scheduled for Cysto/ TVT Normal [facility] Coding Summary.on 04-21-2019 Coding Summary. CODING DATE: 020 FINAL [facility] STATUS: Home (Routine DC) PAYOR: Medicare APC DESCRIPTION 5372 Level 2 Urology and Related Services 5721 Level1 Diagnostic Tests and Related Services ADMIT DX: REASON FOR VISIT DX: FINAL DX: PRINCIPAL: N39.41 Urge incontinence SECONDARY: N35.82 Other urethral stricture, female R35.1 Nocturia Z85.3 Personal history of malignant neoplasm of breast M19.90 Unspecified osteoarthritis, unspecified site Z96.651 Presence of right artificial knee joint PYMT PROC APC STAT DESCRIPTION DOCTOR NAME DATE NOTE: The code number assigned matches the documented diagnosis and / or procedure in the patient's chart. However, the narrative phrase printed from the coding software may appear abbreviated, or result in slightly different terminology. Coded By: Julissa Garces Date Saved: 04/21/2019 01:56 pm Normal [facility] Patient Summaryon 02-02-2019 Patient Summary PATIENT DISCHARGE IN STRUCTIONS If you are having an emergency and are not able to reach your physician, CALL 911 or go to the nearest emergency room and take this document with you. [facility] 02/02/19 09:32 [address] [place] [address] PATIENT INFORMATION Name: ANGELIKA MUIR Address: [address] [place] [id number] Age: 78 Years Phone: [phone] : 1940 12:[birth year] MRN: [id number] Sex: Female Race: White Ethnicity: Not Hispan/Lat Admitted From: Clinic or [facility] Medical Service: Orthopedic Surgery Nurse Unit/Bed: (NEHA) MAURO 0219-01 Admit Date: 01/30/2019 05:59 PCP: Eduardo Sharma MD PHYSICIANS INVOLVED WITH CARE Attending Physicians: Rnacho SIEGEL , Amrik Sutton - Orthopaedic Surg Admitting Physician: Rancho SIEGEL , Amrik Sutton - Orthopaedic Surg Primary Care Physician:Eduardo Sharma MD,Internal Medicine, - Consults: Elbert Gleason MD - Internal Medicine RAMÍREZ Rod - Internal Medicine FOLLOW-UP APPOINTMENTS: Provider: Specialty: Address: Date: Amrik Vickers MD Orthopaedic Surg [address] [facility] [address] (1) Six Weeks Comment: Call for an Appointment Provider: Specialty: Address: Date: Eduardo Sharma MD Internal Medicine [address] [place] [phone] (1) Follow-up as needed Provider: Specialty: Address: Date: [facility]: [facility] [phone] Follow-up as needed ALLERGIES: No Known Medication Allergies No Known Allergies MEASUREMENTS: Last Charted: Weight: Admission 94.90 kg /209 lbs 3 oz ( 01/30/19 07:20:00 ) MEDICATIONS For: ANGELIKA MUIR This is your list of medication(s). Keep it with you at all times. Your doctor may have changed doses, add, held or stopped some of your medications. Please share this information with your family doctor. Carry this list of medications with you in case of an emergency. Update it when medications are stopped, doses are changed, or new medications (including ehzt-brd-kxjoefr products) are added. Ask your doctor if you have any questions. THESE ARE THE MEDICATIONS YOU SHOULD BE TAKING aspirin (aspirin 81 mg oral tablet) 1 Tab(s) By Mouth once a day. NOTES TO PATIENT: Resume after prescription from surgeon for FOUR weeks of TWICE daily aspirin completed. Freetext Medication See Instructions. NEW PRESCRIPTIONS: BABY ASPIRIN TYLENOL TRAMADOL XARELTO CELEBREX OXYCODONE. metoprolol (Toprol XL 25 mg oral tablet, extended release) 1 Tab(s) By Mouth Bedtime., 'Beta-B' metoprolol (Toprol XL 50 mg oral tablet, extended release) 1 Tab(s) By Mouth Bedtime., Beta-B' potassium chloride (potassium chloride 20 mEq oral tablet, extended release) 1 Tab(s) By Mouth Bedtime. sertraline (sertraline 50 mg oral tablet) 2 Tab(s) By Mouth once a day. am. sertraline (sertraline 50 mg oral tablet) 1 Tab(s) By Mouth Bedtime. terbinafine (terbinafine 250 mg oral tablet) 1 Tab(s) By Mouth Bedtime. MEDICATION CHANGE DETAILS (Not your Final Home Medication List) During the course of your visit, your home medication list was updated with the most current information. The details of those changes are shown below: NEW MEDICATIONS Other Medications Freetext Medication See Instructions. NEW PRESCRIPTIONS: BABY ASPIRIN TYLENOL TRAMADOL XARELTO CELEBREX OXYCODONE. Comment UPDATED MEDICATIONS None UNCHANGED MEDICATIONS Other Medications aspirin (aspirin 81 mg oral tablet) 1 Tab(s) By Mouth once a day. NOTES TO PATIENT: Resume after prescription from surgeon for FOUR weeks of TWICE daily aspirin completed. Comment metoprolol (Toprol XL 25 mg oral tablet, extended release) 1 Tab(s) By Mouth Bedtime., 'Beta-B' Comment metoprolol (Toprol XL 50 mg oral tablet, extended release) 1 Tab(s) By Mouth Bedtime., Beta-B' Comment potassium chloride (potassium chloride 20 mEq oral tablet, extended release) 1 Tab(s) By Mouth Bedtime. Comment sertraline (sertraline 50 mg oral tablet) 2 Tab(s) By Mouth once a day. am. Comment sertraline (sertraline 50 mg oral tablet) 1 Tab(s) By Mouth Bedtime. Comment terbinafine (terbinafine 250 mg oral tablet) 1 Tab(s) By Mouth Bedtime. Comment STOP TAKING THESE MEDICATIONS celecoxib (CeleBREX 200 mg oral capsule) 1 Capsule By Mouth Bedtime. DO NOT TAKE UNTIL YOU TALK TO YOUR DOCTOR None NON-MEDICATION PRESCRIPTION SCHEDULING PHONE NUMBER: SELECTED LAB RESULTS ____ Lab Result Order Date Sodium Level 141 mMol/L 02/01/2019 Potassium Level 4.1 mMol/L 02/01/2019 Creatinine 0.77 mg/dL 02/01/2019 BUN 20 mg/dL 02/01/2019 Glucose Level 108 mg/dL 02/01/2019 ADVANCE DIRECTIVE/HEALTH CARE DECISIONS: Advance Directive/Health Care Decisions Executed by Patient: Yes Advance Directive/Health Care Decisions Type: Living Will, Medical Power of Cardiology Physician Assistant Copy of Advance Directive/Health Care Decisions on Chart: Patient/Family asked to provide copy SUICIDE HOTLINE: Your mental and emotional well-being are important. If you are in a mental health crisis, or having thoughts of suicide, please call the nationwide suicide hotline, anytime day or night, at 1-003-600-FXJL. Important information about accessing your health information through the [facility] portal If you initiated the self-registration process for [facility] during your stay, please check your personal email for an invitation to enroll in [employer] and complete the steps outlined in the email. If you would prefer to enroll while in the hospital, ask a member of your care team. We would be happy to assist you. If you have already enrolled in [employer], go to [email or web address] to login and access your health information. Thank you for choosing [facility]. PATIENT EDUCATION Fall Prevention in the Home Falls can cause injuries and can affect people from all age groups. There are many simple things that you can do to make your home safe and to help prevent falls. WHAT CAN I DO ON THE OUTSIDE OF MY HOME?Regularly repair the edges of walkways and driveways and fix any cracks. ???Remove high doorway thresholds. ???Trim any shrubbery on the main path into your home. ???Use bright outdoor lighting. ???Clear walkways of debris and clutter, including tools and rocks. ???Regularly check that handrails are securely fastened and in good repair. Both sides of any steps should have handrails. ???Install guardrails along the edges of any raised decks or porches. ???Have leaves, snow, and ice cleared regularly. ???Use sand or salt on walkways during winter months. ???In the garage, clean up any spills right away, including grease or oil spills. WHAT CAN I DO IN THE BATHROOM?Use night lights. ???Install grab bars by the toilet and in the tub and shower. Do not use towel bars as grab bars. ???Use non-skid mats or decals on the floor of the tub or shower. ???If you need to sit down while you are in the shower, use a plastic, non-slip stool.. ???Keep the floor dry. Immediately clean up any water that spills on the floor. ???Remove soap buildup in the tub or shower on a regular basis. ???Attach bath mats securely with double-sided non-slip rug tape. ???Remove throw rugs and other tripping hazards from the floor. WHAT CAN I DO IN THE BEDROOM?Use night lights. ???Make sure that a bedside light is easy to reach. ???Do not use oversized bedding that drapes onto the floor. ???Have a firm chair that has side arms to use for getting dressed. ???Remove throw rugs and other tripping hazards from the floor. WHAT CAN I DO IN THE KITCHEN?Clean up any spills right away. ???Avoid walking on wet floors. ???Place frequently used items in jmjc-yq-mkiwq places. ???If you need to reach for something above you, use a sturdy step stool that has a grab bar. ???Keep electrical cables out of the way. ???Do not use floor italian or wax that makes floors slippery. If you have to use wax, make sure that it is non-skid floor wax. ???Remove throw rugs and other tripping hazards from the floor. WHAT CAN I DO IN THE STAIRWAYS?Do not leave any items on the stairs. ???Make sure that there are handrails on both sides of the stairs. Fix handrails that are broken or loose. Make sure that handrails are as long as the stairways. ???Check any carpeting to make sure that it is firmly attached to the stairs. Fix any carpet that is loose or worn. ???Avoid having throw rugs at the top or bottom of stairways, or secure the rugs with carpet tape to prevent them from moving. ???Make sure that you have a light switch at the top of the stairs and the bottom of the stairs. If you do not have them, have them installed. WHAT ARE SOME OTHER FALL PREVENTION TIPS?Wear closed-toe shoes that fit well and support your feet. Wear shoes that have rubber soles or low heels. ???When you use a stepladder, make sure that it is completely opened and that the sides are firmly locked. Have someone hold the ladder while you are using it. Do not climb a closed stepladder. ???Add color or contrast paint or tape to grab bars and handrails in your home. Place contrasting color strips on the first and last steps. ???Use mobility aids as needed, such as canes, walkers, scooters, and crutches. ???Turn on lights if it is dark. Replace any light bulbs that burn out. ???Set up furniture so that there are clear paths. Keep the furniture in the same spot. ???Fix any uneven floor surfaces. ???Choose a carpet design that does not hide the edge of steps of a stairway. ???Be aware of any and all pets. ???Review your medicines with your healthcare provider. Some medicines can cause dizziness or changes in blood pressure, which increase your risk of falling. Talk with your health care provider about other ways that you can decrease your risk of falls. This may include working with a physical therapist or whale trainer to improve your strength, balance, and endurance. This information is not intended to replace advice given to you by your health care provider. Make sure you discuss any questions you have with your health care provider. Document Released: 02/26/2003 Document Revised: 07/23/2015 Document Reviewed: 04/12/2015 [employer] Patient Education ?2016 [employer] Incentive Spirometer An incentive spirometer is a tool that can help keep your lungs clear and active. This tool measures how well you are filling your lungs with each breath. Taking long, deep breaths may help reverse or decrease the chance of developing breathing (pulmonary) problems (especially infection) following: ???Surgery of the chest or abdomen. ???Surgery if you have a history of smoking or a lung problem. ???A long period of time when you are unable to move or be active. BEFORE THE PROCEDURE ???If the spirometer includes an indicator to show your best effort, your nurse or respiratory therapist will set it to a desired goal. ???If possible, sit up straight or lean slightly forward. Try not to slouch. ???Hold the incentive spirometer in an upright position. INSTRUCTIONS FOR USE 1.??Sit on the edge of your bed if possible, or sit up as far as you can in bed or on a chair. 2.??Hold the incentive spirometer in an upright position. 3.??Breathe out normally. 4.??Place the mouthpiece in your mouth and seal your lips tightly around it. 5.??Breathe in slowly and as deeply as possible, raising the piston or the ball toward the top of the column. 6.??Hold your breath for 3?5 seconds or for as long as possible. Allow the piston or ball to fall to the bottom of the column. 7.??Remove the mouthpiece from your mouth and breathe out normally. 8.??Rest for a few seconds and repeat Steps 1 through 7 at least 10 times every 1?2 hours when you are awake. Take your time and take a few normal breaths between deep breaths. 9.??The spirometer may include an indicator to show your best effort. Use the indicator as a goal to work toward during each repetition. 10.??After each set of 10 deep breaths, practice coughing to be sure your lungs are clear. If you have an incision (the cut made at the time of surgery), support your incision when coughing by placing a pillow or rolled-up towels firmly against it. Once you are able to get out of bed, walk around indoors and cough well. You may stop using the incentive spirometer when instructed by your caregiver. RISKS AND COMPLICATIONS ???Breathing too quickly may cause dizziness. At an extreme, this could cause you to pass out. Take your time so you do not get dizzy or light-headed. ???If you are in pain, you may need to take or ask for pain medication before doing incentive spirometry. It is harder to take a deep breath if you are having pain. AFTER USE ???Rest and breathe slowly and easily. ???It can be helpful to keep a log of your progress. Your caregiver can provide you with a simple table to help with this. If you are using the spirometer at home, follow these instructions: SEEK MEDICAL CARE IF: ???You are having difficultly using the spirometer. ???You have trouble using the spirometer as often as instructed. ???Your pain medication is not giving enough relief while using the spirometer. ???You develop fever of 100.5?F (38.1?C) or higher. SEEK IMMEDIATE MEDICAL CARE IF: ???You cough up bloody sputum that had not been present before. ???You develop fever of 102?F (38.9?C) or greater. ???You develop worsening pain at or near the incision site. MAKE SURE YOU: ???Understand these instructions. ???Will watch your condition. ???Will get help right away if you are not doing well or get worse. This information is not intended to replace advice given to you by your health care provider. Make sure you discuss any questions you have with your health care provider. Document Released: 07/19/2007 Document Revised: 03/29/2015 Document Reviewed: 10/15/2014 [employer] Interactive Patient Education ?2016 [employer] Pain Medicine Instructions HOW CAN PAIN MEDICINE AFFECT ME? You were given a prescription for pain medicine. This medicine may make you tired or drowsy and may affect your ability to think clearly. Pain medicine may also affect your ability to drive or perform certain physical activities. It may not be possible to make all of your pain go away, but you should be comfortable enough to move, breathe, and take care of yourself. HOW OFTEN SHOULD I TAKE PAIN MEDICINE AND HOW MUCH SHOULD I TAKE?Take pain medicine only as directed by your health care provider and only as needed for pain. ???You do not need to take pain medicine if you are not having pain, unless directed by your health care provider. ???You can take less than the prescribed dose if you find that a smaller amount of medicine controls your pain. WHAT RESTRICTIONS DO I HAVE WHILE TAKING PAIN MEDICINE? Follow these instructions after you start taking pain medicine, while you are taking the medicine, and for 8 hours after you stop taking the medicine: ???Do not drive. ???Do not operate machinery. ???Do not operate power tools. ???Do not sign legal documents. ???Do not drink alcohol. ???Do not take sleeping pills. ???Do not supervise children by yourself. ???Do not participate in activities that require climbing or being in high places. ???Do not enter a body of water?such as a jurado, river, ocean, spa, or swimming pool?without an adult nearby who can monitor and help you. HOW CAN I KEEP OTHERS SAFE WHILE I AM TAKING PAIN MEDICINE?Store your pain medicine as directed by your health care provider. Make sure that it is placed where children and pets cannot reach it. ???Never share your pain medicine with anyone. ???Do not save any leftover pills. If you have any leftover pain medicine, get rid of it or destroy it as directed by your health care provider. WHAT ELSE DO I NEED TO KNOW ABOUT TAKING PAIN MEDICINE?Use a stool softener if you become constipated from your pain medicine. Increasing your intake of fruits and vegetables will also help with constipation. ???Write down the times when you take your pain medicine. Look at the times before you take your next dose of medicine. It is easy to become confused while on pain medicine. Recording the times helps you to avoid an overdose. ???If your pain is severe, do not try to treat it yourself by taking more pills than instructed on your prescription. Contact your health care provider for help. ???You may have been prescribed a pain medicine that contains acetaminophen. Do not take any other acetaminophen while taking this medicine. An overdose of acetaminophen can result in severe liver damage. Acetaminophen is found in many hodn-sys-yqbyqqi (OTC) and prescription medicines. If you are taking any medicines in addition to your pain medicine, check the active ingredients on those medicines to see if acetaminophen is listed. WHEN SHOULD I CALL MY HEALTH CARE PROVIDER?Your medicine is not helping to make the pain go away. ???You vomit or have diarrhea shortly after taking the medicine. ???You develop new pain in areas that did not hurt before. ???You have an allergic reaction to your medicine. This may include: ???Itchiness. ???Swelling. ???Dizziness. ???Developing a new rash. WHEN SHOULD I CALL 911 OR GO TO THE EMERGENCY ROOM?You feel dizzy or you faint. ???You are very confused or disoriented. ???You repeatedly vomit. ???Your skin or lips turn pale or bluish in color. ???You have shortness of breath or you are breathing much more slowly than usual. ???You have a severe allergic reaction to your medicine. This includes: ???Developing tongue swelling. ???Having difficulty breathing. This information is not intended to replace advice given to you by your health care provider. Make sure you discuss any questions you have with your health care provider. Document Released: 06/14/2001 Document Revised: 07/23/2015 Document Reviewed: 01/10/2015 [employer] Patient Education ?2016 [employer]. Preventing Constipation After Surgery Constipation is when a person has fewer than 3 bowel movements a week; has difficulty having a bowel movement; or has stools that are dry, hard, or larger than normal. Many things can make constipation likely after surgery. They include: ???Medicines, especially numbing medicines (anesthetics) and very strong pain medicines called narcotics. ???Feeling stressed because of the surgery. ???Eating different foods than normal. ???Being less active. Symptoms of constipation include: ???Having fewer than 3 bowel movements a week. ???Straining to have a bowel movement. ???Having hard, dry, or qxkfgk-lflu-fhkwpx stools. ???Feeling full or bloated. ???Having pain in the lower abdomen. ???Not feeling relief after having a bowel movement. HOME CARE INSTRUCTIONS Diet ???Eat foods that have a lot of fiber. These include fruits, vegetables, whole grains, and beans. Limit foods high in fat and processed sugars. These include singaporean fries, hamburgers, cookies, and candy. ???Take a fiber supplement as directed. If you are not taking a fiber supplement and think that you are not getting enough fiber from foods, talk to your health care provider about adding a fiber supplement to your diet. ???Drink clear fluids, especially water. Avoid drinking alcohol, caffeine, and soda. These can make constipation worse. ???Drink enough fluids to keep your urine clear or pale yellow. Activity ???After surgery, return to your normal activities slowly or when your health care provider says it is okay. ???Start walking as soon as you can. Try to go a little farther each day. ???Once your health care provider approves, do some sort of regular exercise. This helps prevent constipation. Bowel Movements ???Go to the restroom when you have the urge to go. Do not hold it in. ???Try drinking something hot to get a bowel movement started. ???Keep track of how often you use the restroom. If you miss 2?3 bowel movements, talk to your health care provider about medicines that prevent constipation. Your health care provider may suggest a stool softener, laxative, or fiber supplement. ???Only take ibuo-rvf-uqzltyr or prescription medicines as directed by your health care provider. ???Do not take other medicines without talking to your health care provider first. If you become constipated and take a medicine to make you have a bowel movement, the problem may get worse. Other kinds of medicine can also make the problem worse. SEEK MEDICAL CARE IF: ???You used stool softeners or laxatives and still have not had a bowel movement within 24?48 hours after using them. ???You have not had a bowel movement in 3 days. SEEK IMMEDIATE MEDICAL CARE IF: ???Your constipation lasts for more than 4 days or gets worse. ???You have bright red blood in your stool. ???You have abdominal or rectal pain. ???You have very bad cramping. ???You have thin, pencil-like stools. ???You have unexplained weight loss. ???You have a fever or persistent symptoms for more than 2?3 days. ???You have a fever and your symptoms suddenly get worse. This information is not intended to replace advice given to you by your health care provider. Make sure you discuss any questions you have with your health care provider. Document Released: 07/03/2013 Document Revised: 03/29/2015 Document Reviewed: 07/03/2013 [employer] Interactive Patient Education ?2016 [employer] Venous Thromboembolism, Prevention A venous thromboembolism is a blood clot that forms in a vein. A blood clot in a deep vein is called a deep venous thrombosis (DVT). A blood clot in the lungs is called a pulmonary embolism (PE). Blood clots are dangerous and can cause . Blood clots can form in the: ???Lungs. ???Legs. ???Arms. CAUSES ???A blood clot can form in a vein from different conditions. A blood clot can develop due to: ???Blood flow within a vein that is sluggish or very slow. ???Medical conditions that make the blood clot easily. ???Vein damage. RISK FACTORS Risk factors can increase your risk of developing a blood clot. Risk factors can include: ???Smoking. ???Obesity. ???Age. ???Immobility or sedentary lifestyle. ???Sitting or standing for long periods of time. ???Chronic or long-term bedrest. ???Medical or past history of blood clots. ???Family history of blood clots. ???Hip, leg, or pelvis injury or trauma. ???Major surgery, especially surgery on the hip, knee, or abdomen. ??? and childbirth. ??? control pills and hormone replacement therapy. ???Medical conditions such as ???Peripheral vascular disease (PVD). ???Diabetes. ???Cancer. SYMPTOMS Symptoms of VTE can depend on where the clot is located and if the clot breaks off and travels to another organ. Sometimes, there may be no symptoms. ???DVT symptoms can include: ???Swelling of the leg or arm, especially on one side. ???Warmth and redness of the leg or arm, especially on one side. ???Pain in an arm or leg. Leg pain may be more noticeable or worse when standing or walking. ???PE symptoms can include: ???Shortness of breath. ???Coughing. ???Coughing up blood or blood-tinged mucus (hemoptysis). ???Chest pain or chest pain with deep breaths (pleuritic chest pain). ???Apprehension, anxiety, or a feeling of impending doom. ???Rapid heartbeat. PREVENTION ???Exercise regularly. Take a brisk 30 minute walk every day. Staying active and moving around can help prevent blood clots. ???Avoid sitting or lying in bed for long periods of time. Change your position often, especially during a long trip. ???Women, especially those over the age of 35, should consider the risks and benefits of taking estrogen medicines. This includes control pills and hormone replacement therapy. ???Do not smoke, especially if you take estrogen medicines. If you smoke, talk to your caregiver on how to quit. ???Eat plenty of fruits and vegetables. Ask your caregiver or dietitian if there are foods you should avoid. ???Maintain a weight as suggested by your caregiver. ???Wear loose-fitting clothing. Avoid constrictive or tight clothing around your legs or waist. ???Try not to bump or injure your legs. Avoid crossing your legs when you are sitting. ???Do not use pillows under your knees unless told by your caregiver. ???Take all medicines that your caregiver prescribes you. ???Wear special stockings (compression stockings or JEFFREY hose) if your caregiver prescribes them. ???Wearing compression stockings (support hose) can make the leg veins more narrow. This increases blood flow in the legs and can help prevent blood clots. ???It is important to wear compression stockings correctly. Do not let them bunch up when you are wearing them. TRAVEL Long distance travel can increase the risk of a blood clot. To prevent a blood clot when traveling: ???You should exercise your legs by walking or by pumping your muscles every hour. To help prevent poor circulation on long trips, stand, stretch, and walk up and down the aisle of your airplane, train, or bus as often as possible to get the blood moving. ???Do squats if you are able. If you are unable to do squats, raise your foot on the balls of your feet and tighten your lower leg muscles (particularly the calve muscles) while seated. Pointing (flexing and extending) your toes while tightening your calves while seated are also good exercises to do every hour during long trips. They help increase blood flow and reduce risk of DVT. ???Stay well hydrated. Drink water regularly when traveling, especially when you are sitting or immobile for long periods of time. ???Use of drugs to prevent DVT during routine travel is not generally recommended. Before taking any drugs to reduce risk of DVT, consult your caregiver. SURGERY AND HOSPITALIZATION ???People who are at high risk for a blood clot may be given a blood thinning medicine (anticoagulant) when they are hospitalized even if they are not going to have surgery. ???A long trip prior to surgery can increase the risk of a clot for patients undergoing hip and knee replacements. Talk to your caregiver about travel plans before your surgery. ???After hip or knee surgery, your caregiver may give you anticoagulants to help prevent blood clots. ???Anticoagulants may be given to people at high risk of developing thromboembolism, before, during, or sometimes after surgery, including people with clotting disorders or with a history of past thromboembolism. TRAVEL AFTER SURGERY ???In orthopedic surgery, the cutting of bones prompts the body to increase clotting factors in the blood. Due to the size of the bones involved in hip and knee replacements, there is a higher risk of blood clotting than other orthopedic surgeries. ???There is a risk of clotting for up to 4?6 weeks after surgery. Flying or traveling long distances can increase your risk of a clot. As a result, those who travel long distances may need additional preventive measures after their procedure. ???Drink only non-alcoholic beverages during your flight, train, or car travel. Alcohol can dehydrate you and increase your risk of getting blood clots. SEEK IMMEDIATE MEDICAL CARE IF: ???You develop chest pain. ???You develop severe shortness of breath. ???You have breathing problems after traveling. ???You develop swelling or pain in the leg. ???You begin to cough up bloody mucus or phlegm (sputum). ???You feel dizzy or faint. This information is not intended to replace advice given to you by your health care provider. Make sure you discuss any questions you have with your health care provider. Document Released: 02/24/2010 Document Revised: 11/30/2012 Document Reviewed: 07/03/2015 [employer] Interactive Patient Education ?2016 [employer] VIRUSES OR BACTERIA: WHAT'S GOT YOU SICK? Antibiotics only treat BACTERIAL infections. VIRAL ILLNESSES do not get better with antibiotics. When an antibiotic is not prescribed, ask your healthcare professional for tips on how to relieve symptoms and feel better. Usual Cause Illness Viruses Bacteria Antibiotic Needed? Cold/Runny Nose X NO Bronchitis/Chest Cold (in otherwise healthy adults) X NO Whooping Cough X Yes Flu (not complicated by pneumonia) X NO Strep Throat X Yes Sore Throat X NO Fluid in the Middle Ear (otitis media with effusion) X NO Urinary Tract Infection X Yes For more information visit: www.cdc.gov/getsmart PATIENT DISCHARGE INSTRUCTION Signature Page for: ANGELIKA MUIR Date/Time: 02/02/2019 09:32:22 A Clinician has explained the information on my discharge instructions and has provided me with a copy. My questions have been answered to my satisfaction. Patient Signature Date/Time Responsible Party ___ Date/Time Relationship to Patient Clinician Signature Date/Time Normal [facility] Basic Metabolic Panelon 01-20 Calcium [Mass/Vol] 8.4 mg/dL Low 8.5-10.6 [facility] Chloride [Moles/Vol] 105 mmol/L Normal 98-107 [facility] CO2 [Moles/Vol] 32 mmol/L Normal 21-32 [facility] Creatinine [Mass/Vol] 0.77 mg/dL Normal 0.55-1.02 [facility] Glucose [Mass/Vol] 108 mg/dL High 70-99 [facility] Potassium [Moles/Vol] 4.1 mmol/L Normal 3.5-5.1 [facility] Sodium [Moles/Vol] 141 mmol/L Normal 136-145 [facility] Urea nitrogen (BldV) [Mass/Vol] 20 mg/dL High 7.0-18.0 [facility] Urea nitrogen/Creatin ine [Mass ratio] 26 mg/mg Normal [facility] Basic Metabolic Panelon 01-20 Calcium [Mass/Vol] 8.4 mg/dL Low 8.5-10.6 [facility] Chloride [Moles/Vol] 105 mmol/L Normal 98-107 [facility] CO2 [Moles/Vol] 31 mmol/L Normal 21-32 [facility] Creatinine [Mass/Vol] 0.86 mg/dL Normal 0.55-1.02 [facility] Glucose [Mass/Vol] 101 mg/dL High 70-99 [facility] Potassium [Moles/Vol] 4.1 mmol/L Normal 3.5-5.1 [facility] Sodium [Moles/Vol] 140 mmol/L Normal 136-145 [facility] Urea nitrogen (BldV) [Mass/Vol] 21 mg/dL High 7.0-18.0 [facility] Urea nitrogen/Creatin ine [Mass ratio] 24 mg/mg Normal [facility] Anesthesia Recordon 01-31-20 Anesthesia Record Patient: ANGELIKA MUIR MRN: [facility])-[id number] Age: 78 years Sex: Female : 1940 Associated Diagnoses: None Author: Nadine Barrera MD Procedure Time Out Erwin Protocol: patient identity verified, site verified, side verified, procedure to be done verified, patient position verified. REGIONAL ANESTHESIA PROCEDURE Procedure date and begin time: See nurses notes. Procedure date and end time: See nurses notes. Performed by: Nadine Barrera MD. Assisted by: no office support assistant. Informed consent: signed by patient. Technique: Peripheral nerve blockade technique performed. Medications-Sedation: sedate with meaningful contact maintained.. Local Anesthesia: 1% lidocaine. Indication for Peripheral Nerve Block: post operative management of pain, at surgeon request. Preparation for Peripheral Nerve Block: The skin was prepped with chlorhexidine in the usual fashion. PERIPHERAL NERVE BLOCKADE Ultrasound guidance to monitor safe spread of local anesthesia. sterile prep with chloraprep and drape. 22g 50mm peripheral nerve block needle placed perineural with ultrasound guidance. needle location confirmed. incremental injection. negative aspiration every 3cc. no paresthesia with injection. perineural spread continuously visualized with ultrasound. patient responsive and interactive throughout. Ipack. IPACK BLOCK PERFORMED. Needle(s): 2 inches, 22 gauge. Injectate: ropivacaine (concentration 0.2 %, volume 10 mL). Narrative: paresthesia: none, blood aspirated none, pain on injection noted none, resistance on injection normal. Monitored during procedure: EKG, heart rate, heart rhythm, blood pressure (NIBP), pulse oximetry. Procedure tolerated: well. Complications: none. Procedure done in: holding area. Findings-Comments: none. Estimated Blood Loss: none. Specimen(s) obtained: none. Impression and Plan Diagnosis and Plan: Diagnosis Preoperative Diagnosis: M25.561 M17.11 Knee Pain Postoperative Diagnosis: M25.561 M17.11 Knee Pain . Normal [facility] Anesthesia Record Patient: ANGELIKA MUIR MRN: ([id number] Age: 78 years Sex: Female : 1940 Associated Diagnoses: None Author: Nadine Barrera MD Procedure Time Out Erwin Protocol: patient identity verified, site verified, side verified, procedure to be done verified, patient position verified. REGIONAL ANESTHESIA PROCEDURE Procedure date and begin time: See nurses notes. Procedure date and end time: See nurses notes. Performed by: Nadine Barrera MD. Assisted by: no office support assistant. Informed consent: signed by patient. Technique: Peripheral nerve blockade technique performed. Medications-Sedation: sedate with meaningful contact maintained.. Local Anesthesia: 1% lidocaine. Indication for Peripheral Nerve Block: post operative management of pain, at surgeon request. Preparation for Peripheral Nerve Block: The skin was prepped with chlorhexidine in the usual fashion. PERIPHERAL NERVE BLOCKADE Adductor Canal Block. sterile prep with chloraprep and drape. 22g 50mm peripheral nerve block needle placed perineural with ultrasound guidance. needle location confirmed. incremental injection. negative aspiration every 3cc. no paresthesia with injection. perineural spread continuously visualized with ultrasound. patient responsive and interactive throughout. Needle(s): 4 inches, 22 gauge. Injectate: ropivacaine (concentration 0.5 %, volume 20 mL). Narrative: paresthesia: none, blood aspirated none, pain on injection noted none, resistance on injection normal. Monitored during procedure: EKG, heart rate, heart rhythm, blood pressure (NIBP), pulse oximetry. Procedure tolerated: well. Complications: none. Procedure done in: holding area. Findings-Comments: none. Estimated Blood Loss: none. Specimen(s) obtained: none. Impression and Plan Diagnosis and Plan: Diagnosis Preoperative Diagnosis: M25.561 M17.11 Knee Pain OA Postoperative Diagnosis: M25.561 M17.11 Knee Pain OA . Normal [facility] Basic Metabolic Panelon 11- 1-2019 Calcium [Mass/Vol] 9.0 mg/dL Normal 8.5-10.6 [facility] Chloride [Moles/Vol] 106 mmol/L Normal 98-107 [facility] CO2 [Moles/Vol] 29 mmol/L Normal 21-32 [facility] Creatinine [Mass/Vol] 0.84 mg/dL Normal 0.55-1.02 [facility] Glucose [Mass/Vol] 105 mg/dL High 70-99 [facility] Potassium [Moles/Vol] 3.7 mmol/L Normal 3.5-5.1 [facility] Sodium [Moles/Vol] 143 mmol/L Normal 136-145 [facility] Urea nitrogen (BldV) [Mass/Vol] 23 mg/dL High 7.0-18.0 [facility] Urea nitrogen/Creatin ine [Mass ratio] 27 mg/mg Normal [facility] OR Nursingon 01-30-2019 OR Nursing Normal [facility] PACU I Nursingon 01-30-2019 PACU I Nursing [facility] NA PACU I Nursing Record Summary Primary Physician: Amrik Vickers MD Finalized Date/Time: 01/30/19 12:48:37 Pt. Name: JOSEANGELIKA/Sex: 1940 Female Med Rec #: [id number] Physician: Amrik Vickers MD Financial #: [id number] Pt. Type: I Room/Bed: [address] [place] [address] Admit/Disch: 01/30/19 05:59:00 - Institution: [facility] NA OR Main PACU I Case Times Entry 1 In PACU I 01/30/19 10:05:00 Ready for PACU I 01/30/19 12:04:00 Discharge Discharge from PACU 01/30/19 12:04:00 PACU I Discharge NA I Delay Reason Last Modified By: Ana Rosas RN 01/30/19 12:48:23 [facility] NA OR Main PACU I Case Attendees Entry 1 Case Attendee Ta EUCEDA , Wiliam Kim Role Performed RN Last Modified By: Ana Rosas RN 01/30/19 12:48:35 Finalized By: Ana Rosas RN Document Signatures Signed By: Ana Rosas RN 01/30/19 12:48 Normal [facility] PreOp Nursingon 01-30-2019 PreOp Nursing [facility] NA PreOp Nursing Record Summary Primary Physician: Amrik Vickers MD Finalized Date/Time: 01/30/19 09:02:48 Pt. Name: ANGELIKA MUIR Judy Nayak/Sex: 1940 Female Med Rec #: [id number] Physician: Amrik Vickers MD Financial #: [id number] Pt. Type: I Room/Bed: / Admit/Disch: 01/30/19 05:59:00 - Institution: [facility] NA OR PreOp Case Times Entry 1 PreOp Case Times In Room Time 01/30/19 06:51:00 Out Room Time 01/30/19 08:32:00 Last Modified By: Chelsy Batista RN 01/30/19 09:02:45 [facility] NA OR PreOp Case Attendees Entry 1 Case Attendee Evaristo Morris RN Role Performed RN Last Modified By: Evaristo Morris RN 01/30/19 07:11:35 Finalized By: Chelsy Batista RN Document Signatures Signed By: Chelsy Batista RN 01/30/19 09:02 Normal [facility] Basic Metabolic Panelon 10-3 Calcium [Mass/Vol] 9.0 mg/dL Normal 8.5-10.6 [facility] Chloride [Moles/Vol] 103 mmol/L Normal 98-107 [facility] CO2 [Moles/Vol] 31 mmol/L Normal 21-32 [facility] Creatinine [Mass/Vol] 0.78 mg/dL Normal 0.55-1.02 [facility] Glucose [Mass/Vol] 90 mg/dL Normal 70-99 [facility] Potassium [Moles/Vol] 4.1 mmol/L Normal 3.5-5.1 [facility] Sodium [Moles/Vol] 142 mmol/L Normal 136-145 [facility] Urea nitrogen (BldV) [Mass/Vol] 19 mg/dL High 7.0-18.0 [facility] Urea nitrogen/Creatin ine [Mass ratio] 24 mg/mg Normal [facility] CBC with Differentialon 10-3 Basophils (Bld) [#/Vol] 0.0 thou/mcL Normal 0.0-0.2 [facility] Basophils/100 WBC (Bld) 0.8 % Normal 0-3 [facility] Differential cell count method Nom (Bld) AUTOMATED DIFFERENTIAL Normal [facility] Eosinophils (Bld) [#/Vol] 0.1 thou/mcL Normal 0.0-0.4 [facility] Eosinophils/100 WBC (Bld) 2.0 % Normal 0-7 [facility] Erythrocyte distribution width (RBC) [Entitic vol] 14.4 % Normal 11.7-15.0 [facility] Hematocrit (Bld) [Volume fraction] 36.7 % Normal 34.0-50.0 [facility] Hemoglobin (Bld) [Mass/Vol] 12.1 g/dL Normal 11.5-17.0 [facility] Lymphocytes (Bld) [#/Vol] 1.3 thou/mcL Normal 0.7-4.5 [facility] Lymphocytes/100 WBC (Bld) 26.0 % Normal 14-46 [facility] MCH (RBC) [Entitic mass] 29.2 Picograms Normal 27.0-34.0 [facility] MCHC (RBC) [Mass/Vol] 32.9 g/dL Normal 32.0-36.0 [facility] MCV (RBC) [Entitic vol] 88.7 fL Normal 80-98 [facility] Monocytes (Bld) [#/Vol] 0.4 thou/mcL Normal 0.1-1.0 [facility] Monocytes/100 WBC (Bld) 8.5 % Normal 4-13 [facility] Neutrophils (Bld) [#/Vol] 3.1 thou/mcL Normal 1.5-7.8 [facility] Neutrophils/100 WBC (Bld) 62.7 % Normal 40-74 [facility] Platelet mean volume (Bld) [Entitic vol] 8.4 fL Normal 7.5-11.2 [facility] Platelets (Bld) [#/Vol] 214 thou/mcL Normal 140-415 [facility] RBC (Bld) [#/Vol] 4.13 x(10)6/mcL Normal 3.80-5.60 [facility] WBC (Bld) [#/Vol] 5.0 thou/mcL Normal 4.0-10.5 [facility] Culture Methicillin Resistan t Staph aureuson 01-19-2019 MRSA isol Org specific cx Ql (Unsp spec) [facility] [place]NOTE 2] Microbiology PROCEDURE: Culture Methicillin Resistant Staph aureus SOURCE: Nasal Swab BODY SITE: COLLECTED DATE/TIME: 01/19/2019 15:10 EDT RECEIVED DATE/TIME: 01/19/2019 15:10 EDT START DATE/TIME: 01/19/2019 15:10 EDT FREE TEXT SOURCE: NASAL SWAB-. INTERFACED REPORTS Final Report [] Verified Date/Time/Personnel: 01/20/2019 21:24 EDT CONTRIBUTOR_SYSTEM, CO_PN *MRSA SCREEN* NEGATIVE FOR METHICILLIN(OXACILLIN) RESISTANT STAPHYLOCOCCUS AUREUS. Normal [facility] Comment on above: Performed By: #### [id number] #### [facility] [address], [place] Partial Thromboplastin Time (aPTT)on 01-19-2019 aPTT Coag (PPP) [Time] 31 Sec Normal 23.2-34.6 [facility] Prothrombin Timeon 9 INR Coag (Bld) [Relative time] 1.0 {INR} Normal [facility] Comment on above: Result Comment: DURING THE INDUCTION PHA SE OF ORAL ANTICOAGULATION, THE INR MAY NOT REFLECT THE ANTICOAGULANT STATUS OF THE PATIENT. THERAPEUTIC RANGES FOR INR'S ARE: MOST CLINICAL SITUATIONS: INR 2.0-3.0 MECHANICAL PROSTHETIC VALVES: INR 2.5-3.5 CRITICAL: INR 5.0 PT Coag (PPP) [Time] 12.6 Sec Normal 11.9-14.6 [facility] XR C-Spine 4-5 Viewson 01-19 XR C-Spine 4-5 Views EXAMINATION TYPE: XR C-Spine 4-5 Views DATE OF EXAM : 01/19/2019 4:46 PM HISTORY: m06.9, rheumatoid arthritis, preoperative evaluation for knee surgery COMPARISON: NONE FINDINGS: Straightening of normal lordotic curvature, which may related to positioning and/or degenerative change. No widening of the atlantodental interval is evident on neutral, flexion or extension views. The lateral masses of C1 appear nondisplaced on the open-mouth view. Mild degenerative change at the atlantodental interval. The vertebral body heights are preserved. No spondylolisthesis is evident. Degenerative disc disease notable at C5-C6 and C6-C7, characterized by intervertebral disc height loss and endplate osteophytosis. Ankylosis of the C2, C3 and possibly C4 articular facets. The included aortic knob is atherosclerotic. IMPRESSION: 1. No radiographic evidence of atlantoaxial instability. 2. Ankylosis of the C2, C3 and possibly C4 articular facets, which may be related to rheumatoid arthritis. 3. No spondylolisthesis is evident. 4. Multilevel degenerative disc disease, notably advanced at C5-C6 and C6-C7. [facility] thanks you for the opportunity to care for your patient. Workstation ID: [id number] FINAL REPORT Dictated By: Fritz Styles MD 01/19/2019 21:13 Assigned Physician: Fritz Styles MD Reviewed and Electronically Signed By: Fritz Styles MD 01/19/2019 21:17 Transcribed by: JESSIE 01/19/2019 21:13 Technologist: KAYLIN Gomes [facility] Culture Anaerobicon 10-18-20 19 Bacteria identified Anaer cx Nom (Unsp spec) [facility] [place] 2] Microbiology PROCEDURE: Culture Anaerobic SOURCE: Joint Fl BODY SITE: COLLECTED DATE/TIME: 10/18/2018 13:04 EDT RECEIVED DATE/TIME: 10/18/2018 13:04 EDT START DATE/TIME: 10/18/2018 13:04 EDT FREE TEXT SOURCE: JOINT FLUID-RT HIP INTERFACED REPORTS Final Report [] Verified Date/Time/Personnel: 10/22/2018 07:10 EDT CONTRIBUTOR_SYSTEM, CO_PN NO ANAEROBES ISOLATED AFTER 4 DAYS. Preliminary Report [] Verified Date/Time/Personnel: 10/20/2018 09:27 EDT CONTRIBUTOR_SYSTEM, CO_PN NO ANAEROBES ISOLATED AFTER 48 HOURS, CULTURE WILL BE HELD FOR 4 DAYS. Preliminary Report [] Verified Date/Time/Personnel: 10/18/2018 20:16 EDT CONTRIBUTOR_SYSTEM, CO_PN CULTURE IN PROGRESS Normal [facility] Comment on above: Performed By: #### [id number] #### [place] [address] [place], [place] Culture Body Fluid + Suscept ibility + Smear Directon 10-18-2018 Bacteria identified Sterile body fluid culture Nom (Unsp spec) [facility] [place]NOTE 2] Microbiology PROCEDURE: Culture Body Fluid + Susceptibility + Smear Direct SOURCE: Joint Fl BODY SITE: COLLECTED DATE/TIME: 10/18/2018 13:04 EDT RECEIVED DATE/TIME: 10/18/2018 13:04 EDT START DATE/TIME: 10/18/2018 13:04 EDT FREE TEXT SOURCE: JOINT FLUID-RT HIP INTERFACED REPORTS Final Report [] Verified Date/Time/Personnel: 10/21/2018 07:24 EDT CONTRIBUTOR_SYSTEM, CO_PN NO GROWTH AFTER 72 HOURS Preliminary Report [] Verified Date/Time/Personnel: 10/20/2018 08:16 EDT CONTRIBUTOR_SYSTEM, CO_PN NO GROWTH AFTER 48 HOURS FINAL TO FOLLOW Preliminary Report [] Verified Date/Time/Personnel: 10/19/2018 08:20 EDT CONTRIBUTOR_SYSTEM, CO_PN NO GROWTH AT 12-24 HOURS Gram Stain [] Verified Date/Time/Personnel: 10/18/2018 21:26 EDT CONTRIBUTOR_SYSTEM, CO_PN NO POLYS SEEN, NO EPITHELIALS SEEN, NO ORGANISMS SEEN Normal [facility] Comment on above: Performed By: #### [id number] #### [address] Culture Funguson 10-18-2018 Fungus identified Cx Nom (Unsp spec) [facility] [place]NOTE 2] Microbiology PROCEDURE: Culture Fungus SOURCE: Joint Fl BODY SITE: COLLECTED DATE/TIME: 10/18/2018 13:04 EDT RECEIVED DATE/TIME: 10/18/2018 13:04 EDT START DATE/TIME: 10/18/2018 13:04 EDT FREE TEXT SOURCE: JOINT FLUID-RT HIP INTERFACED REPORTS Final Report [] Verified Date/Time/Personnel: 11/16/2018 20:34 EDT CONTRIBUTOR_SYSTEM, CO_PN NO FUNGUS GROWN AFTER 4 WEEKS Preliminary Report [] Verified Date/Time/Personnel: 10/18/2018 20:16 EDT CONTRIBUTOR_SYSTEM, CO_PN CULTURE IN PROGRESS CULTURE WILL BE UPDATED IF A FUNGUS (INCLUDING YEAST) IS GROWN. CULTURE WILL BE HELD FOR 1-4 WEEKS Normal [facility] Comment on above: Performed By: #### [id number] #### [facility] [address] [place], [place] XR SHOULDER LEFT MIN 2 VIEWS on 07-21-2017 INR Coag RelTime (Bld) EXAM: XR SHOULDER LEFT 4 VIEWS,, 07/21/2017 08:35 AMCLINICAL INDICATIONS: Shoulder painRELEVANT CLINICAL HISTORY: Z98.890:Other specified postprocedural states Scap Y, Axillary, Grashey-ER, AP-IR;COMPARISON: Left shoulder radiograph dated 06/29/2016FINDINGS:4 images obtained.Soft Tissue: There is no significant soft tissue swelling.Bone: No acute osseous abnormality is identified. Joint: Postoperative changes related to reverse total shoulder arthroplasty.The orthopedic hardware is intact with no periprosthetic lucency. Unchangedalignment. The acromioclavicular joint is aligned.IMPRESSION: Status post left reverse total shoulder arthroplasty. Intact orthopedichardware. Unchanged alignment. I personally viewed and interpreted these images and I have reviewed andapproved this report. Normal [facility] Cardiovascular Lab Reporton 11-07-2016 Cardiovascular Lab Report [facility] Patient Name: Angelika Muir [facility] MR #: [id number] Physician: Ankur Riojas of Pac[facility] FranceMedicine Service Date: 11/06/2016Division of Birthdate: 1940Cardiology Room #: CCAdult CardiovascularElizabeth [place] [phone] Fax Cardiovascular Laboratory ReportINDICATIONS: Ms. 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 Isaw her in our [place] office. She has had a complete evaluation thatshowed no clear reason for her episode. She has had 3 episodes. Irecommended her to a loop recorder. Consent was obtained.She was brought to the EP suite, sterile prepped and draped. She was givenAncef. She was given local anesthesia with lidocaine. The Linq wasinserted in the standard fashion. The site was tethered with single 3-0Biosyn suture, adhered with Dermabond and Steri-Strips. There were nocomplications.ASSESSMENT: Placement of an implantable loop recorder for idiopathicsyncope.Electronically Signed by:Ankur France M.D. 11/09/2016 12:02 P Ankur France M.D.Date Dict: 11/06/2016/03:29 P/Ankur France M.D.Date Trans: 11/07/2016 06:05 A/Tyrese_JN:[id number]: Eduardo Sharma M.D. [address] [place] [address] [place] [facility] Vital Signs Date Time Vital Sign Value Performing Clinician Facility 03-24-2021 15:45-0500 Body height 166.37 cm Yolandagriselda Calvo Other [employer] Other 03-24-2021 15:45-0500 Body mass index (BMI) [Ratio] 35.23 kg/m2 Ovulineshonda Other [employer] Other 03-24-2021 15:45-0500 Body temperature 99.4 [degF] Yolandagriselda Calvo Other [employer] Other 03-24-2021 15:45-0500 Body weight 97.52 kg Yolanda Schwerer Other [employer] Other 03-24-2021 15:45-0500 Diastolic blood pressure 78 mm[Hg] Yolanda Schwerer Other [employer] Other 03-24-2021 15:45-0500 SaO2% (BldA) [Mass fraction] 96 % Yolanda Schwerer Other [employer] Other 03-24-2021 15:45-0500 Systolic blood pressure 132 mm[Hg] Yolanda Schwerer Other [employer] Other Encounters Encounter Date Encounter Type Care Provider Facility Start: 04-02-2023 End: 04-02-2023 ambulatory [facility] Start: 09-07-2022 End: 09-07-2022 ambulatory Gennaro Cheng Facility:[facility] Start: 05-25-2022 End: 05-26-[address] SARIKA MUHAMMAD . Facility: Start: 07-15-2021 End: 07-15-2021 ambulatory Yolanda Schwerer Other [employer] Other Start: 07-15-2021 Telephone encounter Yolanda Schwerer [facility] [place] Start: 04-28-2021 End: 04-28-2021 ambulatory Yolanda Schwerer Other [employer] Other Start: 04-28-2021 Telephone encounter Yolanda Schwerer [facility] [place] Start: 04-03-2021 End: 04-03-2021 ambulatory Yolanda Schwerer Other [employer] Other Start: 04-03-2021 Telephone encounter Yolanda Schwerer [facility] [place] Start: 03-24-2021 End: 03-24-2021 ambulatory Yolanda Schwerer Other [employer] Other Start: 03-24-2021 Office outpatient vi sit 15 minutes Yolanda Schwerer [facility] Start: 03-20-2021 End: 03-20-2021 ambulatory Yolanda Schwerer Other [employer] Other Start: 03-20-2021 Telephone encounter Yolanda Schwerer [facility] Start: 03-03-2021 End: 03-03-2021 ambulatory Yolanda Schwerer Other [employer] Other Start: 03-03-2021 Telephone encounter Yolanda Schwerer [facility] Start: 07-21-2017 Ambulatory JOSE LUIS LIZAMA [facility] Start: 11-06-2016 End: 11-07-2016 Ambulatory ANKUR FRANCE Facility:[facility] Immunizations Immunization Date Immunization Notes Care Provider Chava lan 07-05-2020 COVID-19 Vaccine Pfi zer - Documentation Purposes Only Yolanda Schwerer Other [employer] Other 06-07-2020 COVID-19 Vaccine Pfi zer - Documentation Purposes Only Yolanda Schwerer Other [employer] Other 04-30-2018 zoster vaccine recombinant Yolanda Schwerer Other [employer] Other 01-06-2018 zoster vaccine recombinant Yolanda Schwerer Other [employer] Other 03-19-2017 pneumococcal conjuga te vaccine, 13 valent Yolanda Schwerer Other [employer] Other 04-27-2016 pneumococcal polysaccharide vaccine, 23 valent Yolanda Schwerer Other [employer] Other 12-18-2014 pneumococcal polysaccharide vaccine, 23 valent Yolanda Schwerer Other [employer] Other 12-18-2014 zoster vaccine, live Yolanda Schwerer Other [employer] Other 02-11-2009 zoster vaccine, live Yolanda Schwerer Other [employer] Other Payers Date Payer Category Payer Self-pay 2003 Medicare [id number] 2003 Medicare [id number] 1959 Medicare [id number] 1959 Unknown [id number]. [id number] 1940 Unknown [id number] 1940 Unknown [id number] [id number] [id number] Medicare [id number] 2.1 [id number] Unknown [id number] [id number] [id number] Social History Date Type Detail Facility Unknown if ever smoked [employer] Other Sex Assigned At Sex Assigned At Bir th [employer] Other Clinical Note 05-24-2022 Note Date & Type Note Facility 05-24-2022 Note PROCEDURE: XR HIP RT 2 3V W PELVIS, 05/24/2022 6:23 PM EST CLINICAL INDICATIONS: Right hip pain, no known injury, symptoms for 2 days COMPARISON: None TECHNIQUE: AP pelvis one view, right hip 2 views FINDINGS: PELVIS: Lumbosacral disc degeneration, spondylosis and facet arthropathy is seen. There is moderate to severe bilateral sacroiliac osteoarthrosis. The sacral foramina are symmetric. 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 There is nonspecific 0.6 cm cephalic displaced to the left pubis compared to the right. This may be posttraumatic. The age of the process however is undetermined. A 1.7 cm coarse right pelvic calcification likely represents calcified degenerated uterine fibroid. RIGHT HIP: There is anatomic alignment of the right total hip arthroplasty. Hardware complication is not evident. There is moderate lateral hip and trochanteric level none bridging heterotopic calcification. Acute fracture or malalignment is not confirmed. IMPRESSION: 1. There is nonspecific 0.6 cm cephalic displaced to the left pubis compared to the right. This may be posttraumatic in etiology. A fracture line is not evident. The age of this process is undetermined. Correlation with site of pain is recommended. 2. Lumbosacral disc degeneration, spondylosis and facet arthropathy. 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 1.7 cm calcified degenerated uterine fibroid 4. Anatomic alignment of right total hip plastic, no hardware complication 5. Moderate lateral right hip and trochanteric level nonbridging heterotopic calcification Electronically authenticated by: CAMILO ARNOLD Date: 2022-05-24 19:59 [facility] Evaluation note 03-24-2021 Note Date & Type Note Facility 03-24-2021 Evaluation note Encounter Date Diagnosis Assessment Notes Mar, Skin rash (ICD-10 - R21) i think eczema, will do clobetasol she already has this. will continue on lotramin. she will call in a few days if not improved. [employer] Other Progress note 05-30-2020 Note Date & Type Note Facility 05-30-2020 Note HNO ID: [id number] Author: Negro Pompa Service: ? Author Type: Physician Type: Progress Notes Filed: 05/30/2020 6:55 PM Note Text: [facility] HISTORY OF PRESENT ILLNESS: Angelika Muir is a 80 year old F female here today for a follow up after sling incision and bladder botox injection 05/01/20. Patient reports no improvement in UI. Otherwise feeling well. HISTORIES: PAST MEDICAL HISTORY PAST MEDICAL HISTORY Diagnosis Date - Bronchitis - Hx: UTI (urinary tract infection) PAST SURGICAL HISTORY PAST SURGICAL HISTORY Procedure Laterality Date - ANESTHESIA SHOULDER: REPLACE Left 2015 at [facility] - needed two procedures - ANESTHESIA TOTAL HIP ARTHROPLASTY 2002 right hip - APPENDECTOMY HX - CATARACT SURGERY, COMPLEX - REMOVAL GALLBLADDER - TONSILLECTOMY HX - TOTAL HIP REPLACEMENT Left 2004 - TOTAL KNEE REPLACEMENT Right 2019 FAMILY HISTORY History reviewed. No pertinent family history. SOCIAL HISTORY Social History Tobacco Use - Smoking status: Former Smoker - Smokeless tobacco: Never Used Substance Use Topics - Alcohol use: Not on file - Drug use: Not on file MEDICATIONS: Current Outpatient Medications Medication Sig - estradiol (ESTRACE) 0.01 % (0.1 mg/gram) vaginal cream Use 1 g vaginally two times a week. - celecoxib (CELEBREX) 200 mg capsule Take 200 mg by mouth once daily. - KLOR-CON M20 20 mEq tablet Take 20 mEq by mouth once daily. - sertraline (ZOLOFT) 50 mg tablet Take 50 mg by mouth as needed. - Potassium Bicarb-Citric Acid (K-LYTE) 25 mEq disintegrating tablet Take 25 mEq by mouth. - metoprolol succinate ER (TOPROL XL) 50 mg 24 hr tablet 25 mg once daily. - Potassium Chloride 25 mEq pack Take 25 mEq by mouth. - terbinafine HCl (LAMISIL) 250 mg tablet terbinafine HCl 250 mg tablet - solifenacin 10 mg tablet Take 5 mg by mouth once daily. No current facility-administered medications for this visit. CURRENT ALLERGIES: Allergies As of Date: 05/30/2020 Allergen Noted Reaction TAPE [ADHESIVE TAPE (ROSINS)] 06/28/2012 Rash Fully Assessed 05/30/2020 PHYSICAL EXAM: General: No acute distress, well appearing : Deferred at this visit Ext: BLE edema PVR: 71 mL via bladder US IMPRESSION: 80 yo F s/p TVT-O with UUI s/p sling incision and bladder botox 05/01/20, no improvement in UI. Previously refractory to multiple medications. - Discussed LE edema and diuretic in the afternoon - Discussed Pure Wick for early AM incontinence but unlikely to catch a large gush - Discussed r/b of SNM vs. Repeat botox at 200U. Patient will consider higher dose botox All questions and concerns were addressed. Negro Pompa MD [facility] Clinical Note 04-18-2020 Note Date & Type Note Facility 04-18-2020 Note Patient Outreach (CO OCC3) ANGELIKA MUIR ([id number]) 1940 F Date Time Provider Department 04/18/20 PENNY RIBEIRO During your visit today, we recorded the following information about you: Allergies As of Date: 04/18/2020 Noted Allergy Reaction TAPE (ADHESIVE TAPE (ROSINS)) 06/28/2012 2 - Rash Date Reviewed: 01/09/2020 Reviewed by: Niru Cunningham - Fully Assessed Order(s):SARS-COVID VACCINE 1ST DOSE APPT [[id number]] Order #: [id number] FUTURE Prescriptions as of 04/18/2020 Sig: SERTRALINE 50 MG TABLET Take 50 mg by mouth as needed* POTASSIUM BICARBONATE-CITRIC * Take 25 mEq by mouth. METOPROLOL SUCCINATE ER 50 MG* 25 mg once daily. POTASSIUM CHLORIDE 25 MEQ ORA* Take 25 mEq by mouth. TERBINAFINE HCL 250 MG TABLET terbinafine HCl 250 mg tablet SOLIFENACIN 10 MG TABLET Take 5 mg by mouth once daily. CELECOXIB 200 MG CAPSULE Take 200 mg by mouth once kasey* KLOR-CON M20 MEQ TABLET,EXTEN* Take 20 mEq by mouth once kasey* Problem List As Of Date 04/18/2020 Noted Resolved Breast CA [C50.919] 06/28/2012 History of breast cancer [Z85.3] 01/10/2014 Encounter Status:Closed by EPIC, PRODUSER on 04/22/20 [facility] Evaluation note Note Date & Type Note Facility Evaluation note No Information [employer] Other History general Narrative - Reported Note Date & Type Note Facility History general Narrative - Reported Type Medical History hx of Low BP Medical History vertigo Medical History depression Surgical History CARDIAC LOOP RECORDER IMPLANT Surgical History BILATERAL HIP ARTHROPLASTY Surgical History BILATERAL [facility] JOINT ARTHROPLAST Y Surgical History TRIGGER RELEASE RIGHT RING FING ER Surgical History BILATRAL FOOT SURGERY Surgical History LEFT TOTAL SHOULDER X2 Hospitalization History see surgical hx [employer] Other Summary Purpose Family History No Family History Records FoundNo Family History Records FoundNo Family History Records FoundNo Family History Records FoundNo Family History Records FoundNo Family History Records FoundNo Family History Records FoundNo Family History Records FoundNo Family History Records Found Advance Directives No Advanced Directives Records FoundNo Advanced Directives Records FoundNo Advanced Directives Records FoundNo Advanced Directives Records FoundNo Advanced Directives Records FoundNo Advanced Directives Records FoundNo Advanced Directives Records FoundNo Advanced Directives Records FoundNo Advanced Directives Records Found Assessments Note Patient: ANGELIKA MUIR MR N: ([id number] Age: 78 years Sex: Female : 1940 Associated Diagnoses: None Author: Elbert Gleason MD Assessment Assessment Diagnosis: Osteoarthritis (WXV73-XX M17.11, 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 Right TKA. Dr. Vickers. Plan Stable medically POD # 3. I reviewed the labs today. EBL = 50. Deep Vein Thrombosis prophylaxis per surgery team. Please follow the 2012 ACCP guidelines. I ordered all of the home medications for the floor. I also ordered the pain regimen which included IV Dilaudid. She was on celebrex pre-op. Pain is still well controlled today RA - No DMARDS or steroids. On celebrex. TICO(G47.33) - no CPAP at home, close monitoring post-op, use CPAP/BIPAP if needed. No SOB or wheezing today. Weaning O2. Cardiac Arrhythmia - resume metoprolol post-op. Add telemetry post-op. She had tachycardia yesterday but her metoprolol was held for relative hypotension. We gave fluids and her dose early and she responded nicely. Depression(F (more content not included)... Note CONSULTATION DICTATED BY: RA JERSON LEARY MD DATE OF SERVICE: 01/19/2019 NAME: ANGELIKA MUIR. DATE OF : 1940 SURGERY DATE: 01/30/2019 REFERRING SURGEON: Amrik Vickers MD ADMIT DIAGNOSIS: Osteoarthritis, right knee. CHIEF COMPLAINT: Preoperative medical risk stratification. HISTORY OF PRESENT ILLNESS: Patient is a very pleasant 78-year-old female who presents for preoperative medical risk stratification consult at the request of Dr. Vickers, prior to right total knee arthroplasty. This patient reports a 1-year history of right knee pain. Symptoms progressed over the last several months. Pain is currently described as intermittent but yuxaloxt-st-iqpyes, particularly with activity. Symptoms have failed to respond to more conservative measures, and she now presents for surgical intervention. Please see below regarding the status of active medical conditions and assessment and plan for preoperative medical risk stratification. Medical Illnesses: 1. Osteoarthritis affecting (more content not included)... Note CLINICAL SUMMARY Please take this summary document to your follow up appointments. [facility] 02/02/19 09:32 [address] [place]. [address] PATIENT INFORMATION Name: ANGELIKA MUIR [address]: [address] [place] [id number] Age: 78 Years Phone: [phone] : 1940 12:00 MRN: [id number] Sex: Female Race: White Ethnicity: Not Hispan/Lat Admitted From: Clinic or [facility] Medical Service: Orthopedic Surgery Nurse Unit/Bed: (CO) 2NAN 0219-01 Admit Date: 01/30/2019 05:59 PCP: Eduardo hSarma MD PHYSICIANS INVOLVED WITH CARE Attending Physicians: Amrik Vickers MD - Orthopaedic Surg Admitting Physician: Amrik Vickers MD - Orthopaedic Surg Primary Care Physician:Eduardo Sharma MD,Internal Medicine, - Consults: Elbert Gleason MD - Internal Medicine RAMÍREZ Rod (more content not included)... Note Patient: ANGELIKA MUIR MR N: [id number] [facility]: [id number] Age: 78 years Sex: Female : 1940 Associated Diagnoses: None Author: Nate SIEGEL, Bachar Comments Supervising Physician Comments Documentation By: Consulting Physician. Subjective Subjective: Patient participated in the evaluation: Yes. Nausea: not present. Vomiting: not present. Pain: acceptable pain control. Objective Objective: Vital Signs: Last Charted Vital Signs Temperature: 97.9 (01/30 13:08) Pulse: 76 (01/30 13:08) Respiration: 14 (01/30 13:08) BP: 130/79 (01/30 13:08) Pulse Ox: 98 (01/30 13:08) Oxygen Delivery: Nasal cannula (01/30 13:08) O2 Device Flow: 2 L/min Pain Score: 8 (01/30 12:00) . Mental Status: appropriate post anesthetic. Postoperative hydration: adequate. Assessment Assessment: Post anesthetic condition: No apparent anesthetic complications. Airway patent: yes. No SOB, no respiratory distress, no witness apnea or obstruction, awake, alert, satisfied with analgesia and do not anticipate sign (more content not included)... Note HNO ID: [id number] Author: Cheryle Wilcox (Aa) Service: ? Author Type: Cloth Stretcher Type: Anesthesia Procedure Notes Filed: 05/01/2020 3:33 PM Note Text: ANESTHESIOLOGY PROCEDURE NOTE Airway General Information Procedure Start Time/Medication Administration: 05/01/2020 3:28 PM Patient location during procedure: OR Timeout Performed Pre-procedure: timeout performed Consent Obtained: Yes Patient identity confirmed: arm band, care steam and power supervisor and patient Staffing Anesthesiologist: Ihsan Gamino CAA: Ankur Wilcox (Aa) Indications and Patient Condition Preoxygenated: yes Patient position: sniffing Indications for airway management: anesthesia anesthesia circuit Method: asleep Final Airway Details Final airway type: supraglottic airway Final Supraglottic Airway: IGEL Size 4 Seal Adequate: yes SIGNATURE: [place] Gonzales PATIENT NAME: Angelika Muir DATE: May 01, 2020 TIME: 3:33 PM CSN: [id number] Note HNO ID: [id number] Author: Ariana Gay Service: Urology Author Type: Resident Type: Brief Op Note Filed: 05/01/2020 4:09 PM Note Text: BRIEF OPERATIVE / PROCEDURE NOTE LOG ID: [id number] SURGERY/PROCEDURE DATE: 05/01/2020 INCISION/PROCEDURE START TIME: 3:28 PM INCISION CLOSE/PROCEDURE END TIME: 4:05 PM SURGEON(S)/PROCEDURALIST(S) AND VEHICLE MONITOR TECHNICIAN(S): Surgeon(s) and Role: * Negro Pompa - Primary No Additional Staff SURGERY/PROCEDURE(S): Release of urethral sling, cystoscopy, injection of 100U botox ANESTHESIA: Monitored Anesthesia Care FINDINGS: tight urethral sling incised and released with significant separation of sling edges after release, cystoscopy and injection of botox ESTIMATED BLOOD LOSS: 20 mls SPECIMENS: * No specimens in log * COMPLICATIONS: None PRE-OP/PRE-PROCEDURE DIAGNOSIS: Urinary incontinence POST-OP/POST-PROCEDURE DIAGNOSIS: Same as preop SIGNATURE: Darron Gay MD PATIENT NAME: Angelika Muir DATE: May 01, 2020 TIME: 4:07 PM PAGER/CONTACT #: [phone] (more content not included)... Hospital Course Note CLINICAL SUMMARY Please take this summary document to your follow up appointments. [facility] 02/02/19 09:32 [address] [place]. [address] PATIENT INFORMATION Name: ANGELIKA MUIR Address: [address] [place] [id number] Age: 78 Years Phone: [phone] : 1940 12:00 MRN: [id number] Sex: Female Race: White Ethnicity: Not Hispan/Lat Admitted From: Clinic or [facility] Medical Service: Orthopedic Surgery Nurse Unit/Bed: (MS) 2N 0219-01 Admit Date: 01/30/2019 05:59 PCP: Eduardo Sharma MD PHYSICIANS INVOLVED WITH CARE Attending Physicians: Rancho SIEGEL , Amrik Sutton - Orthopaedic Surg Admitting Physician: Rancho SIEGEL , Jean Claude - Orthopaedic Surg Primary Care Physician:Eduardo Sharma MD,Internal Medicine, - Consults: Rosibel SIEGEL , Elbert Kim - Internal Medicine RAMÍREZ Rod (more content not included)... Procedure Findings Note HNO ID: [id number] Author: Cheryle Wilcox (Aa) Service: ? Author Type: Cloth Stretcher Type: Anesthesia Procedure Notes Filed: 05/01/2020 3:33 PM Note Text: ANESTHESIOLOGY PROCEDURE NOTE Airway General Information Procedure Start Time/Medication Administration: 05/01/2020 3:28 PM Patient location during procedure: OR Timeout Performed Pre-procedure: timeout performed Consent Obtained: Yes Patient identity confirmed: arm band, care steam and power supervisor and patient Staffing Anesthesiologist: Ihsan Gamino CAA: Ankur Wilcox (Aa) Indications and Patient Condition Preoxygenated: yes Patient position: sniffing Indications for airway management: anesthesia anesthesia circuit Method: asleep Final Airway Details Final airway type: supraglottic airway Final Supraglottic Airway: IGEL Size 4 Seal Adequate: yes SIGNATURE: [place] PATIENT NAME: Angelika Muir DATE: May 01, 2020 TIME: 3:33 PM CSN: [id number] Note HNO ID: [id number] Author: Ariana kaplan (Martina) [place] Service: Urology Author Type: Resident Type: Brief Op Note Filed: 05/01/2020 4:09 PM Note Text: BRIEF OPERATIVE / PROCEDURE NOTE LOG ID: [id number] SURGERY/PROCEDURE DATE: 05/01/2020 INCISION/PROCEDURE START TIME: 3:28 PM INCISION CLOSE/PROCEDURE END TIME: 4:05 PM SURGEON(S)/PROCEDURALIST(S) AND VEHICLE MONITOR TECHNICIAN(S): Surgeon(s) and Role: * Negro Pompa - Primary No Additional Staff SURGERY/PROCEDURE(S): Release of urethral sling, cystoscopy, injection of 100U botox ANESTHESIA: Monitored Anesthesia Care FINDINGS: tight urethral sling incised and released with significant separation of sling edges after release, cystoscopy and injection of botox ESTIMATED BLOOD LOSS: 20 mls SPECIMENS: * No specimens in log * COMPLICATIONS: None PRE-OP/PRE-PROCEDURE DIAGNOSIS: Urinary incontinence POST-OP/POST-PROCEDURE DIAGNOSIS: Same as preop SIGNATURE: Darron Gay MD PATIENT NAME: Angelika Muir DATE: May 01, 2020 TIME: 4:07 PM PAGER/CONTACT #: [phone] (more content not included)... Note Patient: ANGELIKA MUIR MR N: [id number] Age: 78 years Sex: Female : 1940 Associated Diagnoses: None Author: Nate SIEGEL, Bachar Comments Supervising Physician Comments Documentation By: Consulting Physician. Subjective Subjective: Patient participated in the evaluation: Yes. Nausea: not present. Vomiting: not present. Pain: acceptable pain control. Objective Objective: Vital Signs: Last Charted Vital Signs Temperature: 97.9 (01/30 13:08) Pulse: 76 (01/30 13:08) Respiration: 14 (01/30 13:08) BP: 130/79 (01/30 13:08) Pulse Ox: 98 (01/30 13:08) Oxygen Delivery: Nasal cannula (01/30 13:08) O2 Device Flow: 2 L/min Pain Score: 8 (01/30 12:00) . Mental Status: appropriate post anesthetic. Postoperative hydration: adequate. Assessment Assessment: Post anesthetic condition: No apparent anesthetic complications. Airway patent: yes. No SOB, no respiratory distress, no witness apnea or obstruction, awake, alert, satisfied with analgesia and do not anticipate sign (more content not included)... Additional Source Comments INFORMATION SOURCE (unrecogn ized section and content) DATE CREATED AUTHOR 09/09/2017 [facility] DATE CREATED AUTHOR AUTHOR'S ORGANIZ ATION 09/15/2017 [facility] DATE CREATED AUTHOR AUTHOR'S ORGANIZ ATION 02/06/2019 [facility] DATE CREATED AUTHOR AUTHOR'S ORGANIZ ATION 11/22/2019 [facility] DATE CREATED AUTHOR AUTHOR'S ORGANIZ ATION 05/08/2020 [facility] DATE CREATED AUTHOR AUTHOR'S ORGANIZ ATION 04/05/2021 [facility] DATE CREATED AUTHOR AUTHOR'S ORGANIZ ATION 05/31/2022 [facility] DATE CREATED AUTHOR AUTHOR'S ORGANIZ ATION 09/21/2022 [facility] DATE CREATED AUTHOR AUTHOR'S ORGANIZ ATION 04/04/2023 [facility] REASON FOR VISIT (unrecogniz ed section and content) FR-ERringwormNeeds an Appt NO SHOW APPTrefillNo Information FOR RECORDS PERTAINING TO PATIENTS WHO ARE OR HAVE BEEN ENROLLED IN A CHEMICAL DEPENDENCY/SUBSTANCEABUSE PROGRAM, SOME INFORMATION MAY BE OMITTED. This clinical summary was aggregated from multiple sources. Caution should be exercised in using it in the provision of clinical care. This summary normalizes information from multiple sources, and as a consequence, information in this document may materially change the coding, format and clinical context of patient data. In addition, data may be omitted in some cases. CLINICAL DECISIONS SHOULD BE BASED ON THE PRIMARY CLINICAL RECORDS. [employer] [facility]. provides no warranty or guarantee of the accuracy or completeness of information in this document.
--- NOTE | 2023-04-07 12:29 | XR_ITS ---
[address] [address] Patient Name: AMISHA GARCIA MRN: [id number] date: 1940 Sex: F Assigned Patient Location: [facility] Current Patient Location: [facility] Accession/Order Number: [id number] Exam Date: 04/07/2023 12:35 Report Date: 04/07/2023 13:10 At the request of: CESIA CHAHAL Procedure: XR hip BI w PEL 1V EXAMINATION: XR hip BI w PEL 1V HISTORY: bilateral hip pain M25.552 COMPARISON: FINDINGS: RIGHT FINDINGS: BONES: Total hip arthroplasty in anatomic alignment. No acute fracture, dislocation or mechanical failure. SOFT TISSUES: Scattered heterotopic ossification OTHER: Pelvic calcification likely a calcified fibroid. Degenerative changes of the spine LEFT FINDINGS: BONES: Total hip arthroplasty in anatomic alignment. No acute fracture, dislocation or mechanical failure. SOFT TISSUES: Negative. No visible soft tissue swelling. OTHER: Negative. XR/XR hip BI w PEL 1V IMPRESSION: RIGHT CONCLUSION: Total hip arthroplasty with no acute abnormality LEFT CONCLUSION: Total hip arthroplasty with no acute abnormality Electronically authenticated by: FORTINO CARRERA Date: 04/07/2023 13:10
== END 2023-04-07 11:55 | disposition home or self-care (01) ==
LOC: RAD 12:01
PROVIDERS: PCP Family Medicine; Visit Provider Nurse Practitioner Family
DX: M25.551 Pain in right hip (principal); M25.552 Pain in left hip; Z96.643 Presence of artificial hip joint, bilateral
CPT/HCPCS: 73523

== ENCOUNTER 2023-04-19 12:08 | Outpatient (OUT) | payer MEDICARE, OTHER, SELFPAY ==
--- OUTSIDE RECORDS SUMMARY | 2023-04-19 12:10 | XMS_ITS | CCD ---
Author Name Unknown Address [address] [place] [address] Organization [facility] Care Team Providers Care Line Installation Supervisor Name Role Phone JOSE LUIS LIZAMA Unavailable [...] [place]AD ., DR SARIKA [employer] Unavailable [facility] [place] Primary Care Unavailable MISC, DR [...] Date of Onset Reaction(s) Facility (1 source) 16502,00; Translations: [82182,00] Propensity to adverse reactions (disorder) 9 [facility] Repository (1 source) Adhesive agent; Translations: [...] disease (1 source) Atherosclerotic heart disease of [place] coronary artery without angina pectoris; Translations: [ATHSCL HEART DISEASE OF [place] CORONARY ARTERY W/O ANG PCTRS] Onset: 11-06-2016 Chronic Essential hypertension (6 sources) Essential hypertension; Translations: [Essential (primary) hypertension] Chronic Mood disorders (6 sources) Mood disorder; Translations: [Unspecified mood [affective] disorder] Chronic Osteoarthritis (13 sources) Osteoarthritis of right knee joint; Translations: [Unilateral primary osteoarthritis, right knee] Onset: 04-02-2023 Chronic Other aftercare (1 source) Other jail (current) drug therapy; Translations: [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 [facility] Comment on above: Result Comment: Negative <1:80 Borderline 1:80 Positive >1:80 Performed By: #### T 4F, TSH3, CRP, CMP, ESR, CBC #### [facility] [address] Homogeneous Pattern 1:160 High . [facility] Comment on above: Result Comment: ICAP nomenclature: [id number] Performed By: #### T 4F, TSH3, CRP, CMP, ESR, CBC #### [facility] [address] Note 1 Normal . [facility] Comment on above: Result Comment: For [...] titers Nucleosomes, Histones Drug-induced SLE Speckled Sm, GARMENT ALTERATION EXAMINER, SCL-70, SLE,MCTD,PSS (diffuse form), SS-A/SS-B Sjogrens Nucleolar SCL-70, PM-1/SCL High titers Scleroderma, PM/DM Centromere Centromere PSS (limited form) w/Crest syndrome variable Nuclear Dot [id number] Primary Biliary Cirrhosis Nuclear GP210, Primary Biliary Cirrhosis Membrane vickey A,B,C Performed at: [address] [id number] Lpn Cma: Naldo Valdez PhD, Phone: [phone] PERFORMED BY: [place] [address] PATHOLOGIST [employer] UP TECHNICIAN JORGE LUIS RUELAS M.D. Performed By: #### T 4F, TSH3, CRP, CMP, ESR, CBC #### [address] C-Reactive Proteinon 023 C-Reactive Protein 0.8 mg/dL High 0.0-0.5 [facility] Comment on above: Performed By: #### T4F, TSH3, CRP, CMP, ESR, CBC #### [address] Complete Blood Count Auto Di ffon 09-07-2022 Basophils (Bld) [#/Vol] 0.1 10*3/uL Normal 0.0-0.2 [facility] Comment on above: Performed By: #### T4F, TSH3, CRP, CMP, ESR, CBC #### [address] Basophils/100 WBC (Bld) 1.0 % Normal . [facility] Comment on above: Performed By: #### T4F, TSH3, CRP, CMP, ESR, CBC #### [place] [id number] [place] Eosinophils (Bld) [#/Vol] 0.1 10*3/uL Normal 0.0-0.45 [facility] Comment on above: Performed By: #### T4F, TSH3, CRP, CMP, ESR, CBC #### [address] Eosinophils/100 WBC (Bld) 1.0 % Normal . [facility] Comment on above: Performed By: #### T4F, TSH3, CRP, CMP, ESR, CBC #### [address] Erythrocyte distribution width (RBC) [Ratio] 15.0 % Normal 11.9-15.3 [facility] Comment on above: Performed By: #### T4F, TSH3, CRP, CMP, ESR, CBC #### [address] Hematocrit (Bld) [Volume fraction] 36.3 % Normal 34.0-46.4 [facility] Comment on above: Performed By: #### T4F, TSH3, CRP, CMP, ESR, CBC #### [address] Hemoglobin (Bld) [Mass/Vol] 11.8 g/dL Normal 11.8-15.4 [facility] Comment on above: Performed By: #### T4F, TSH3, CRP, CMP, ESR, CBC #### [address] Lymphocytes (Bld) [#/Vol] 1.4 10*3/uL Normal 1.00-4.8 [facility] Comment on above: Performed By: #### T4F, TSH3, CRP, CMP, ESR, CBC #### [address] Lymphocytes/100 WBC (Bld) 20.9 % Normal . [facility] Comment on above: Performed By: #### T4F, TSH3, CRP, CMP, ESR, CBC #### [address] MCH (RBC) [Entitic mass] 28.9 pg Normal 24.7-34.3 [facility] Comment on above: Performed By: #### T4F, TSH3, CRP, CMP, ESR, CBC #### [address] MCV (RBC) [Entitic vol] 88.4 fL Normal 80-100 [facility] Comment on above: Performed By: #### T4F, TSH3, CRP, CMP, ESR, CBC #### [address] Mean Corpuscular HGB Conc 32.7 g/dL Normal 32.0-35.0 [facility] Comment on above: Performed By: #### T4F, TSH3, CRP, CMP, ESR, CBC #### [address] Monocytes (Bld) [#/Vol] 0.6 10*3/uL Normal 0.0-0.8 [facility] Comment on above: Performed By: #### T4F, TSH3, CRP, CMP, ESR, CBC #### [address] Monocytes/100 WBC (Bld) 9.2 % Normal . [facility] Comment on above: Performed By: #### T4F, TSH3, CRP, CMP, ESR, CBC #### [address] Neutrophils (Bld) [#/Vol] 4.4 10*3/uL Normal 1.8-7.7 [facility] Comment on above: Performed By: #### T4F, TSH3, CRP, CMP, ESR, CBC #### [address] Neutrophils/100 WBC (Bld) 67.9 % Normal . [facility] Comment on above: Performed By: #### T4F, TSH3, CRP, CMP, ESR, CBC #### [address] NRBC% 0.1 /100{WBC} Normal 0-0.5 [facility] Comment on above: Performed By: #### T4F, TSH3, CRP, CMP, ESR, CBC #### [address] Platelet mean volume (Bld) [Entitic vol] 8.8 fL Normal 6.3-10.7 [facility] Comment on above: Performed By: #### T4F, TSH3, CRP, CMP, ESR, CBC #### [address] Platelets (Bld) [#/Vol] 272 10*3/uL Normal 150-450 [facility] Comment on above: Performed By: #### T4F, TSH3, CRP, CMP, ESR, CBC #### [address] RBC (Bld) [#/Vol] 4.11 10*6/uL Normal 3.60-5.00 [facility] Comment on above: Performed By: #### T4F, TSH3, CRP, CMP, ESR, CBC #### [address] WBC (Bld) [#/Vol] 6.5 10*3/uL Normal 3.8-11.6 [facility] Comment on above: Performed By: #### T4F, TSH3, CRP, CMP, ESR, CBC #### [address] Comprehensive Metabolic Pane johana 09-07-2022 Albumin [Mass/Vol] 3.7 g/dL Normal 3.5-5.7 [facility] Comment on above: Performed By: #### T4F, TSH3, CRP, CMP, ESR, CBC #### [address] Albumin/Globulin [Mass ratio] 1.4 {ratio} Normal [facility] Comment on above: Performed By: #### T4F, TSH3, CRP, CMP, ESR, CBC #### [address] ALP [Catalytic activity/Vol] 83 U/L Normal 34-104 [facility] Comment on above: Performed By: #### T4F, TSH3, CRP, CMP, ESR, CBC #### [address] ALT [Catalytic activity/Vol] 9 U/L Normal 7-52 [facility] Comment on above: Performed By: #### T4F, TSH3, CRP, CMP, ESR, CBC #### [address] Anion gap [Moles/Vol] 11.9 mmol/L Normal 6.0-15.0 [facility] Comment on above: Performed By: #### T4F, TSH3, CRP, CMP, ESR, CBC #### [address] AST [Catalytic activity/Vol] 12 U/L Low 13-39 [facility] Comment on above: Performed By: #### T4F, TSH3, CRP, CMP, ESR, CBC #### [address] Bilirubin [Mass/Vol] 0.4 mg/dL Normal 0.3-1.0 [facility] Comment on above: Performed By: #### T4F, TSH3, CRP, CMP, ESR, CBC #### [address] Calcium [Mass/Vol] 9.0 mg/dL Normal 8.6-10.3 [facility] Comment on above: Performed By: #### T4F, TSH3, CRP, CMP, ESR, CBC #### [address] Chloride [Moles/Vol] 105 mmol/L Normal 98-107 [facility] Comment on above: Performed By: #### T4F, TSH3, CRP, CMP, ESR, CBC #### [address] CO2 [Moles/Vol] 30.4 mmol/L Normal 21.0-31.0 [facility] Comment on above: Performed By: #### T4F, TSH3, CRP, CMP, ESR, CBC #### [facility] [address] Creatinine [Mass/Vol] 0.92 mg/dL Normal 0.60-1.20 [facility] Comment on above: Performed By: #### T4F, TSH3, CRP, CMP, ESR, CBC #### [facility] [address] GFR/1.73 sq M.predicted MDRD (S/P/Bld) [Vol rate/Area] mL/min/{1.73_m2} [facility] Comment on above: Performed By: #### T4F, TSH3, CRP, CMP, ESR, CBC #### [address] Globulin (S) [Mass/Vol] 2.6 g/dL Normal [facility] Comment on above: Performed By: #### T4F, TSH3, CRP, CMP, ESR, CBC #### [address] Glucose [Mass/Vol] 92 mg/dL Normal 70-100 [facility] Comment on above: Result Comment: Random Glucose Reference Range is dependent on time and content of last meal. Glucose of more than 200 mg/dL in a nonstressed, ambulatory subject supports the diagnosis of Diabetes Mellitus. ADA recommended reference range Performed By: #### T 4F, TSH3, CRP, CMP, ESR, CBC #### [address] Potassium [Moles/Vol] 4.3 mmol/L Normal 3.5-5.1 [facility] Comment on above: Performed By: #### T4F, TSH3, CRP, CMP, ESR, CBC #### [address] Protein [Mass/Vol] 6.3 g/dL Low 6.4-8.9 [facility] Comment on above: Performed By: #### T4F, TSH3, CRP, CMP, ESR, CBC #### [facility] [address] Sodium [Moles/Vol] 143 mmol/L Normal 136-145 [facility] Comment on above: Performed By: #### T4F, TSH3, CRP, CMP, ESR, CBC #### [facility] [address] Urea nitrogen [Mass/Vol] 21 mg/dL Normal 7-25 [facility] Comment on above: Performed By: #### T4F, TSH3, CRP, CMP, ESR, CBC #### [facility] [address] [place] [address] [place] Dipstick and Microscopicon 0 09-07-2022 Appearance (U) Cloudy Critically abnormal Clear [facility] Comment on above: Order Comment: Name Collection Type:: Cl marcie-Voided Midstream Performed By: #### S PE, UPE RAND, VITO SERUM, VITO,URINE #### [facility] , #### CUU, ADDONUAPLUS #### [facility] [address] [place] [address] [place] Bacteria,Urine 4+ High None Seen [facility] Comment on above: Order Comment: Name Collection Type:: Cl marcie-Voided Midstream Performed By: #### S PE, UPE RAND, VITO SERUM, VITO,URINE #### [facility] , #### CUU, ADDONUAPLUS #### [facility] [address] [place] [address] [place] Bilirubin,Urine Negative Normal Negative [facility] Comment on above: Order Comment: Name Collection Type:: Cl marcie-Voided Midstream Performed By: #### S PE, UPE RAND, VITO SERUM, VITO,URINE #### [facility] , #### CUU, ADDONUAPLUS #### [facility] [address] [place] [address] [place] Color (U) Yellow Normal Yellow [facility] Comment on above: Order Comment: Name Collection Type:: Cl marcie-Voided Midstream Performed By: #### S PE, UPE RAND, VITO SERUM, VITO,URINE #### [facility] , #### CUU, ADDONUAPLUS #### [facility] [address] [place] [address] Glucose Ql (U) Normal Normal Normal [facility] Comment on above: Order Comment: Name Collection Type:: Cl marcie-Voided Midstream Performed By: #### S PE, UPE RAND, VITO SERUM, VITO,URINE #### [facility] , #### CUU, ADDONUAPLUS #### [facility] [address] [place] [address] Hyaline Casts,Urine 0-8 Normal 0-8 [facility] Comment on above: Order Comment: Name Collection Type:: Cl marcie-Voided Midstream Result Comment: PERF ORMED BY: [place] [address] PATHOLOGIST [employer] UP TECHNICIAN JORGE LUIS RUELAS M.D. Performed By: #### S PE, UPE RAND, VITO SERUM, VITO,URINE #### [facility] , #### CUU, ADDONUAPLUS #### [facility] [address] [place] [address] Ketones Ql (U) Trace High Negative [facility] Comment on above: Order Comment: Name Collection Type:: Cl marcie-Voided Midstream Performed By: #### S PE, UPE RAND, VITO SERUM, VITO,URINE #### [facility] , #### CUU, ADDONUAPLUS #### [facility] [address] [place] [address] Leukocyte esterase Test strip Ql (U) 1+ High Negative [facility] Comment on above: Order Comment: Name Collection Type:: Cl marcie-Voided Midstream Performed By: #### S PE, UPE RAND, VITO SERUM, VITO,URINE #### [facility] , #### CUU, ADDONUAPLUS #### [facility] [address] [place] [address] Nitrite,Urine Positive High Negative [facility] Comment on above: Order Comment: Name Collection Type:: Cl marcie-Voided Midstream Performed By: #### S PE, UPE RAND, VITO SERUM, VITO,URINE #### [facility] , #### CUU, ADDONUAPLUS #### [facility] [address] [place] [address] Occult Blood,Urine Negative Normal Negative [facility] Comment on above: Order Comment: Name Collection Type:: Cl marcie-Voided Midstream Performed By: #### S PE, UPE RAND, VITO SERUM, VITO,URINE #### [facility] , #### CUU, ADDONUAPLUS #### [address] pH (U) 5.5 [pH] Normal 5.0-9.0 [facility] Comment on above: Order Comment: Name Collection Type:: Cl marcie-Voided Midstream Performed By: #### S PE, UPE RAND, VITO SERUM, VITO,URINE #### [facility] , #### CUU, ADDONUAPLUS #### [address] Protein,Urine Negative Normal Negative [facility] Comment on above: Order Comment: Name Collection Type:: Cl marcie-Voided Midstream Performed By: #### S PE, UPE RAND, VITO SERUM, VITO,URINE #### [facility] , #### CUU, ADDONUAPLUS #### [facility] [address] [place] [address] [place] RBC,Urine 3-4 Normal 0-4 [facility] Comment on above: Order Comment: Name Collection Type:: Cl marcie-Voided Midstream Performed By: #### S PE, UPE RAND, VITO SERUM, VITO,URINE #### [facility] , #### CUU, ADDONUAPLUS #### [facility] [address] [place] [address] Specificy [place],Urine 1.027 Normal 1.001-1.03 0 [facility] Comment on above: Order Comment: Name Collection Type:: Cl marcie-Voided Midstream Performed By: #### S PE, UPE RAND, VITO SERUM, VITO,URINE #### [facility] , #### CUU, ADDONUAPLUS #### [facility] [address] [place] [address] Squamous Epithelial Cell,Urine 5-9 High 0-2 [facility] Comment on above: Order Comment: Name Collection Type:: Cl marcie-Voided Midstream Performed By: #### S PE, UPE RAND, VITO SERUM, VITO,URINE #### [facility] , #### CUU, ADDONUAPLUS #### [facility] [address] [place] [address] Urobilinogen,Uri ne Normal Normal Normal [facility] Comment on above: Order Comment: Name Collection Type:: Cl marcie-Voided Midstream Performed By: #### S PE, UPE RAND, VITO SERUM, VITO,URINE #### [facility] , #### CUU, ADDONUAPLUS #### [facility] [address] [place] [address] WBC,Urine 5-9 High 0-4 [facility] Comment on above: Order Comment: Name Collection Type:: Cl marcie-Voided Midstream Performed By: #### S PE, UPE RAND, VITO SERUM, VITO,URINE #### [facility] , #### CUU, ADDONUAPLUS #### [facility] [address] [place] [address] Erythrocyte Sedimentation Ra trent 09-07-2022 ESR (Bld) [Velocity] 63 mm/h High 0-29 [facility] Comment on above: Result Comment: PERFORMED BY: [place] [address] PATHOLOGIST [employer] UP TECHNICIAN JORGE LUIS RUELAS M.D. Performed By: #### T 4F, TSH3, CRP, CMP, ESR, CBC #### [address] Free T4 (Free Thyroxine)on 0 09-07-2022 Free T4 [Mass/Vol] 0.96 ng/dL Normal 0.61-1.12 [facility] Comment on above: Performed By: #### T4F, TSH3, CRP, CMP, ESR, CBC #### [place] [address] [place] Immunofixation, (VITO), Urine on 09-07-2022 Immunofixation, (VITO), Urine Normal . [facility] Comment on above: Result Comment: No monoclonality detecte d. Performed at: - [facility] [id number] Lpn Cma: Naldo Valdez PhD, Phone: [phone] Performed By: #### T 4F, TSH3, CRP, CMP, ESR, CBC #### [place] [address] [place] Immunofixation,Serumon 09-07 Immunofixation, Serum Normal . [facility] Comment on above: Result Comment: No monoclonality detecte d. Performed By: #### S PE, UPE RAND, VITO SERUM, VITO,URINE #### [facility] , #### CUU, ADDONUAPLUS #### [place] [address] [place] Immunoglobulin A, Serum 107 mg/dL Normal 64-422 [facility] Comment on above: Performed By: #### SPE, UPE RAND, VITO SE RUM, VITO,URINE #### [facility] , #### CUU, ADDONUAPLUS #### [address] Immunoglobulin G 972 mg/dL Normal 586-1602 [facility] Comment on above: Performed By: #### SPE, UPE RAND, VITO SE RUM, VITO,URINE #### [facility] , #### CUU, ADDONUAPLUS #### [facility] [address] [place] [id number] [place] Immunoglobulin M, Serum 348 mg/dL High 26-217 [facility] Comment on above: Result Comment: Performed at: [facility] [address] [id number] Lpn Cma: Naldo Valdez PhD, Phone: [phone] Performed By: #### S PE, UPE RAND, VITO SERUM, VITO,URINE #### [facility] , #### CUU, ADDONUAPLUS #### [facility] [address] [place] [address] [place] Protein Electro, Random Urin chester 09-07-2022 Albumin, Urine 15.7 % Normal . [facility] Comment on above: Performed By: #### T4F, TSH3, CRP, CMP, ESR, CBC #### [facility] [address] [place] [address] [place] Lhkhd-4-Ctnhvugu , Urine 1.3 % Normal . [facility] Comment on above: Performed By: #### T4F, TSH3, CRP, CMP, ESR, CBC #### [facility] [address] [place] [address] [place] Vdjwe-8-Bzjmaghe , Urine 17.8 % Normal . [facility] Comment on above: Performed By: #### T4F, TSH3, CRP, CMP, ESR, CBC #### [facility] [address] [place] [id number] [place] Beta Globulin, Urine 36.1 % Normal . [facility] Comment on above: Performed By: #### T4F, TSH3, CRP, CMP, ESR, CBC #### [facility] [address] [place] [id number] [place] Gamma Globulin, Urine 29.0 % Normal . [facility] Comment on above: Performed By: #### T4F, TSH3, CRP, CMP, ESR, CBC #### [address] M-Virgil % Not Observed Normal Not Observed [facility] Comment on above: Performed By: #### T4F, TSH3, CRP, CMP, ESR, CBC #### [address] Please Note: Normal . [facility] Comment on above: Result Comment: Protein electrophoresis scan will follow via computer, mail, or music critic delivery. PERFORMED BY: [place] [address] PATHOLOGIST [employer] UP TECHNICIAN JORGE LUIS RUELAS M.D. Performed By: #### T 4F, TSH3, CRP, CMP, ESR, CBC #### [address] Protein (U) [Mass/Vol] 27.7 mg/dL Normal Not Estab. [facility] Comment on above: Performed By: #### T4F, TSH3, CRP, CMP, ESR, CBC #### [address] Protein Electrophoresis, Ser umon 09-07-2022 Albumin [Mass/Vol] 3.3 g/dL Normal 2.9-4.4 [facility] Comment on above: Performed By: #### SPE, UPE RAND, VITO SE RUM, VITO,URINE #### [facility] , #### CUU, ADDONUAPLUS #### [address] Albumin/Globulin [Mass ratio] 1.1 {ratio} Normal 0.7-1.7 [facility] Comment on above: Performed By: #### SPE, UPE RAND, VITO SE RUM, VITO,URINE #### [facility] , #### CUU, ADDONUAPLUS #### [address] Btzcc-4-Aosvribd 0.3 g/dL Normal 0.0-0.4 [facility] Comment on above: Performed By: #### SPE, UPE RAND, VITO SE RUM, VITO,URINE #### [facility] , #### CUU, ADDONUAPLUS #### [facility] [address] [place] [address] Ijajx-1-Zpbgflkp 0.9 g/dL Normal 0.4-1.0 [facility] Comment on above: Performed By: #### SPE, UPE RAND, VITO SE RUM, VITO,URINE #### [facility] , #### CUU, ADDONUAPLUS #### [facility] [address] [place] [address] [place] Beta Globulin 0.9 g/dL Normal 0.7-1.3 [facility] Comment on above: Performed By: #### SPE, UPE RAND, VITO SE RUM, VITO,URINE #### [facility] , #### CUU, ADDONUAPLUS #### [facility] [address] [place] [address] Gamma Globulin 1.1 g/dL Normal 0.4-1.8 [facility] Comment on above: Performed By: #### SPE, UPE RAND, VITO SE RUM, VITO,URINE #### [facility] , #### CUU, ADDONUAPLUS #### [facility] [address] [place] [address] [place] Globulin (S) [Mass/Vol] 3.1 g/dL Normal 2.2-3.9 [facility] Comment on above: Performed By: #### SPE, UPE RAND, VITO SE RUM, VITO,URINE #### [facility] , #### CUU, ADDONUAPLUS #### [facility] [address] [place] [address] M-Virgil Not Observed Normal Not Observed [facility] Comment on above: Performed By: #### SPE, UPE RAND, VITO SE RUM, VITO,URINE #### [facility] , #### CUU, ADDONUAPLUS #### [address] Protein [Mass/Vol] 6.4 g/dL Normal 6.0-8.5 [facility] Comment on above: Performed By: #### SPE, UPE RAND, VITO SE RUM, VITO,URINE #### [facility] , #### CUU, ADDONUAPLUS #### [address] SPE-Note Normal . [facility] Comment on above: Result Comment: Protein electrophoresis scan will follow via computer, mail, or music critic delivery. Performed at: [facility] [address] [id number] Lpn Cma: Naldo Valdez PhD, Phone: [phone] PERFORMED BY: [place] [address] PATHOLOGIST [employer] UP TECHNICIAN JORGE LUIS RUELAS M.D. Performed By: #### S PE, UPE RAND, VITO SERUM, VITO,URINE #### [facility] , #### CUU, ADDONUAPLUS #### [address] Thyroid Stimulating Hormoneo n 09-07-2022 TSH Qn 1.60 m[IU]/L Normal 0.45-5.33 [facility] Comment on above: Result Comment: PERFORMED BY: [place] [address] PATHOLOGIST [employer] UP TECHNICIAN JORGE LUIS RUELAS M.D. Performed By: #### T 4F, TSH3, CRP, CMP, ESR, CBC #### [address] Urine Cultureon 09-07-2022 Bacteria identified Cx Nom (U) ORGANISM: Escherichia coli (O:ESCCOL) [place] Count >100,000 Aerobic DELFIN Charge (NMIC56) SUSCEPTIBILITY [...] RESISTANT TO ALL B-LACTAM DRUGS. PERFORMED BY: [place] [address] PATHOLOGIST [employer] SET UP TECHNICIAN JORGE LUIS RUELAS M.D. [facility] Comment on above: Performed By: #### LUZMARIA, CORNELL DUFFY, VITO SE RUM, VITO,URINE #### [facility] , #### CUU, ADDONUAPLUS #### [address] CULTURE URINEon 05-28-2022 CULTURE URINE Isolate [...] F Trimethoprim/Sulfamethoxazole <=20 S F Normal [facility] Comment on above: Performed By: #### UACSIND #### [facility] [address] [place] [address] Dr. Megan Caballero ALDOLASEon 05-27-2022 Aldolase 5.8 U/L Normal 3.3-10.3 [facility] Comment on above: Performed By: #### LACT #### [facility] [address] [place] [address] Dr. Megan Caballero TAO DIRECTon 05-27-2022 TAO Direct Negative Normal Negative [facility] Comment on above: Performed By: #### LACT #### [facility] [address] [place] [address] Dr. Megan Caballero RHEUMATOID FACTORon 05-28-19 23 RA Latex Turbid. 28.2 IU/mL Critically high <14.0 [facility] Comment on above: Performed By: #### LACT #### [facility] [address] [place] [address] Dr. Megan Caballero CBC AUTO DIFFon 05-26-2022 BASO # 0.0 103/ul Normal 0.0-0.1 [facility] Comment on above: Performed By: #### LACT #### [facility] [address] [place] [address] Dr. Megan Caballero Basophils/100 WBC (Bld) 0.1 % Critically low 0.2-2.0 [facility] Comment on above: Performed By: #### LACT #### [facility] [address] [place] [address] Dr. Megan Caballero EO # 0.0 103/ul Normal 0.0-0.7 [facility] Comment on above: Performed By: #### LACT #### [facility] [address] [place] [address] Dr. Megan Caballero Eosinophils/100 WBC (Bld) 0.0 % Critically low 0.9-7.0 [facility] Comment on above: Performed By: #### LACT #### [facility] [address] [place] [address] Dr. Megan Caballero Erythrocyte distribution width (RBC) [Ratio] 13.4 % Normal 11.0-15.0 [facility] Comment on above: Performed By: #### LACT #### [facility] [address] [place] [address] Dr. Megan Caballero Hematocrit (Bld) [Volume fraction] 33.4 % Critically low 36.0-48.0 [facility] Comment on above: Performed By: #### LACT #### [facility] [address] [place] [address] Dr. Megan Caballero Hemoglobin (Bld) [Mass/Vol] 11.0 g/dL Critically low 12.0-16.0 [facility] Comment on above: Performed By: #### LACT #### [facility] [address] [place] [address] Dr. Megan Caballero IG # 0.12 10e3/ul Critically high 0.00-0.03 [facility] Comment on above: Performed By: #### LACT #### [facility] [address] [place] [address] Dr. Megan Caballero IG % 0.9 % Critically high 0.0-0.5 [facility] Comment on above: Performed By: #### LACT #### [facility] [address] [place] [address] Dr. Megan Caballero LYMPH # 0.8 103/ul Critically low 1.2-3.8 [facility] Comment on above: Performed By: #### LACT #### [facility] [address] [place] [address] Dr. Megan Caballero Lymphocytes/100 WBC (Bld) 5.7 % Critically low 20.5-60.0 [facility] Comment on above: Performed By: #### LACT #### [facility] [address] [place] [address] Dr. Megan Caballero MANUAL DIFF REQ NO Normal [facility] Comment on above: Performed By: #### LACT #### [facility] [address] [place] [address] Dr. Megan Caballero MCH (RBC) [Entitic mass] 29.2 pg Normal 26.7-34.0 [facility] Comment on above: Performed By: #### LACT #### [facility] [address] [place] [address] Dr. Megan Caballero MCHC (RBC) [Mass/Vol] 32.9 g/dL Normal 29.9-35.2 [facility] Comment on above: Performed By: #### LACT #### [facility] [address] [place] [address] Dr. Megan Caballero MCV (RBC) [Entitic vol] 88.6 fL Normal 81.0-99.0 [facility] Comment on above: Performed By: #### LACT #### [facility] [address] [place] [address] Dr. Megan Caballero MONO # 1.1 103/ul Critically high 0.3-0.8 [facility] Comment on above: Performed By: #### LACT #### [facility] [address] [place] [address] Dr. Megan Caballero Monocytes/100 WBC (Bld) 7.9 % Normal 1.7-12.0 [facility] Comment on above: Performed By: #### LACT #### [facility] [address] [place] [address] Dr. Megan Caballero NEUT # 11.9 103/ul Critically high 1.4-6.5 [facility] Comment on above: Performed By: #### LACT #### [facility] [address] [place] [address] Dr. Megan Caballero Neutrophils/100 WBC (Bld) 85.4 % Critically high 43.0-75.0 [facility] Comment on above: Performed By: #### LACT #### [facility] [address] [place] [address] Dr. Megan Caballero Platelet mean volume (Bld) [Entitic vol] 10.2 fL Normal 9.5-13.5 [facility] Comment on above: Performed By: #### LACT #### [facility] [address] [place] [address] Dr. Megan Caballero PLT 176 103/ul Normal 150-450 [facility] Comment on above: Performed By: #### LACT #### [facility] [address] [place] [address] Dr. Megan Caballero RBC 3.77 106/ul Critically low 4.20-5.40 [facility] Comment on above: Performed By: #### LACT #### [facility] [address] [place] [address] Dr. Megan Caballero WBC 13.9 103/ul Critically high 4.0-11.0 [facility] Comment on above: Performed By: #### LACT #### [facility] [address] [place] [address] Dr. Megan Caballero CULTURE BLOODon 05-26-2022 Microscopic examination of blood, culture Culture Observations: NO GROWTH AT 5 DAYS. Normal [facility] Comment on above: Performed By: #### UACSIND #### [facility] [address] [place] [address] Dr. Megan Caballero Microscopic examination of blood, culture Culture Observations: NO GROWTH AT 5 DAYS. Normal [facility] Comment on above: Performed By: #### UACSIND #### [facility] [address] [place] [address] Dr. Megan Caballero LACTATE/LACTIC ACIDon 2022 Lactate [Moles/Vol] 1.1 mmol/L Normal 0.4-1.9 [facility] Comment on above: Performed By: #### LACT #### [facility] [address] [place] [address] Dr. Megan Caballero LIVER PROFILEon 05-26-2022 Albumin [Mass/Vol] 2.7 g/dL Critically low 3.4-5.0 [facility] Comment on above: Performed By: #### LACT #### [facility] [address] [place] [address] Dr. Megan Caballero Albumin/Globulin [Mass ratio] 0.6 {ratio} Normal [facility] Comment on above: Performed By: #### LACT #### [facility] [address] [place] [address] Dr. Megan Caballero ALP [Catalytic activity/Vol] 107 U/L Normal 46-116 [facility] Comment on above: Performed By: #### LACT #### [facility] [address] [place] [address] Dr. Megan Caballero ALT [Catalytic activity/Vol] 12 U/L Critically low 14-59 [facility] Comment on above: Performed By: #### LACT #### [facility] [address] [place] [address] Dr. Megan Caballero AST [Catalytic activity/Vol] 16 U/L Normal 15-37 [facility] Comment on above: Performed By: #### LACT #### [facility] [address] [place] [address] Dr. Megan Caballero BILI, CONJUGATED 0.1 mg/dL Normal 0.0-0.2 [facility] Comment on above: Performed By: #### LACT #### [facility] [address] [place] [address] Dr. Megan Caballero Bilirubin [Mass/Vol] 0.6 mg/dL Normal 0.2-1.0 [facility] Comment on above: Performed By: #### LACT #### [facility] [address] [place] [address] Dr. Megan Caballero Globulin (S) [Mass/Vol] 4.2 g/dL Normal [facility] Comment on above: Performed By: #### LACT #### [facility] [address] [place] [address] Dr. Megan Caballero Protein [Mass/Vol] 6.9 g/dL Normal 6.4-8.2 [facility] Comment on above: Performed By: #### LACT #### [facility] [address] [place] [address] Dr. Megan Caballero MAGNESIUMon 05-26-2022 Magnesium [Mass/Vol] 1.9 mg/dL Normal 1.8-2.4 [facility] Comment on above: Performed By: #### MG #### [facility] [address] [address] [address] Megan Caballero NM BONE SC WH [...] IHSAN PEDROZA Date: 2022-05-26 15:25 Normal [facility] PROF 14(COMP METB)on 023 Albumin [Mass/Vol] 2.4 g/dL Critically low 3.4-5.0 [facility] Comment on above: Performed By: #### LACT #### [facility] [address] [place] [address] Dr. Megan Caballero Albumin/Globulin [Mass ratio] 0.6 {ratio} Normal [facility] Comment on above: Performed By: #### LACT #### [facility] [address] [address] [address] Megan Caballero ALP [Catalytic activity/Vol] 92 U/L Normal 46-116 [facility] Comment on above: Performed By: #### LACT #### [facility] [address] [address] [address] Megan Caballero ALT [Catalytic activity/Vol] 10 U/L Critically low 14-59 [facility] Comment on above: Performed By: #### LACT #### [facility] [address] [address] [address] Megan Caballero Anion gap [Moles/Vol] 10.3 mmol/L Normal [facility] Comment on above: Performed By: #### LACT #### [facility] [address] [address] [address] Megan Caballero AST [Catalytic activity/Vol] 14 U/L Critically low 15-37 [facility] Comment on above: Performed By: #### LACT #### [facility] [address] [place] [address] Dr. Megan Caballero Bilirubin [Mass/Vol] 0.5 mg/dL Normal 0.2-1.0 [facility] Comment on above: Performed By: #### LACT #### [facility] [address] [address] [address] Megan Caballero Calcium [Mass/Vol] 8.2 mg/dL Critically low 8.5-10.1 [facility] Comment on above: Performed By: #### LACT #### [facility] [address] [place] [address] Dr. Megan Caballero Chloride [Moles/Vol] 104 mmol/L Normal 98-107 [facility] Comment on above: Performed By: #### LACT #### [facility] [address] [place] [address] Dr. Megan Caballero CO2 [Moles/Vol] 28.2 mmol/L Normal 21.0-32.0 [facility] Comment on above: Performed By: #### LACT #### [facility] [address] [place] [address] Dr. Megan Caballero Creatinine [Mass/Vol] 1.05 mg/dL Critically high 0.55-1.02 [facility] Comment on above: Performed By: #### LACT #### [facility] [address] [place] [address] Dr. Megan Caballero EGFR-AF ROMANIAN >60 Normal >=60 [facility] Comment on above: Performed By: #### LACT #### [facility] [address] [place] [address] Dr. Megan Caballero EGFR-NON AF ROMANIAN 50 mL/min/1.73m2 Critically low >=60 [facility] Comment on above: Performed By: #### LACT #### [facility] [address] [place] [address] Dr. Megan Caballero Globulin (S) [Mass/Vol] 3.7 g/dL Normal [facility] Comment on above: Performed By: #### LACT #### [facility] [address] [place] [address] Dr. Megan Caballero Glucose [Mass/Vol] 116 mg/dL Critically high 74-106 [facility] Comment on above: Performed By: #### LACT #### [facility] [address] [address] [address] Megan Caballero Potassium [Moles/Vol] 3.5 mmol/L Normal 3.5-5.1 [facility] Comment on above: Performed By: #### LACT #### [facility] [address] [place] [address] Dr. Megan Caballero Protein [Mass/Vol] 6.1 g/dL Critically low 6.4-8.2 [facility] Comment on above: Performed By: #### LACT #### [facility] [address] [place] [address] Dr. Megan Caballero Sodium [Moles/Vol] 139 mmol/L Normal 136-145 [facility] Comment on above: Performed By: #### LACT #### [facility] [address] [place] [address] Dr. Megan Caballero Urea nitrogen [Mass/Vol] 25.0 mg/dL Critically high 7.0-18.0 [facility] Comment on above: Performed By: #### LACT #### [facility] [address] [place] [address] Dr. Megan Caballero Urea nitrogen/Creatin ine [Mass ratio] 23.8 mg/mg Normal [facility] Comment on above: Performed By: #### LACT #### [facility] [address] [place] [address] Dr. Megan Caballero PTTon 05-26-2022 aPTT Coag (Bld) [Time] 31.1 s Normal 22.3-36.2 [facility] Comment on above: Performed By: #### PTT #### [facility] [address] [place] [address] Dr. Megan Caballero UA RANDOMon 05-26-2022 Bilirubin Ql (U) Negative Normal NEGATIVE [facility] Comment on above: Performed By: #### UA #### [facility] [address] [place] [address] Dr. Megan Caballero Clarity (U) CLEAR Normal CLEAR [facility] Comment on above: Performed By: #### UA #### [facility] [address] [place] [address] Dr. Megan Caballero Color (U) LT. YELLOW Normal YELLOW [facility] Comment on above: Performed By: #### UA #### [facility] [address] [place] [address] Dr. Megan Caballero Glucose Ql (U) Negative Normal NEGATIVE [facility] Comment on above: Performed By: #### UA #### [facility] [address] [place] [address] Dr. Megan Caballero Hemoglobin Ql (U) MODERATE Abnormal NEGATIVE [facility] Comment on above: Performed By: #### UA #### [facility] [address] [place] [address] Dr. Megan Caballero Ketones Ql (U) Negative Normal NEGATIVE [facility] Comment on above: Performed By: #### UA #### [facility] [address] [place] [address] Dr. Megan Caballero LEUKOCYTES TRACE Abnormal NEGATIVE [facility] Comment on above: Performed By: #### UA #### [facility] [address] [place] [address] Dr. Megan Caballero Nitrite Ql (U) Negative Normal NEGATIVE [facility] Comment on above: Performed By: #### UA #### [facility] [address] [place] [address] Dr. Megan Caballero pH (U) 6.0 [pH] Normal 5-9 [facility] Comment on above: Performed By: #### UA #### [facility] [address] [place] [address] Dr. Megan Caballero SPEC GRAVITY 1.015 Normal 1.005-<=1. 025 [facility] Comment on above: Performed By: #### UA #### [facility] [address] [place] [address] Dr. Megan Caballero UA PROTEIN 30 mg/dl Abnormal NEGATIVE/ TRACE [facility] Comment on above: Performed By: #### UA #### [facility] [address] [place] [address] Dr. Megan Caballero Urobilinogen Qn (U) 0.2 {Renu'U}/dL Normal 0.2 - 1.0 [facility] Comment on above: Performed By: #### UA #### [facility] [address] [place] [address] Dr. Megan Caballero XR CHEST 1 Von [...] ALVINO BENITEZ Date: 2022-05-26 04:41 Normal [facility] CPKon 05-25-2022 CK [Catalytic activity/Vol] 73 U/L Normal 26-192 [facility] Comment on above: Performed By: #### UACSIND #### [facility] [address] [place] [address] Dr. Megan Caballero CRPon 05-25-2022 CRP 11.9 mg/dL Critically high <=1.0 [facility] Comment on above: Performed By: #### CRP, URIC #### [facility] [address] [place] [address] Dr. Megan Caballero [facility]on SARS-CoV-2 (COVID-19) RNA YU+probe Ql (Unsp spec) Not detected Normal NOT DETECTED [facility] Comment on above: Result Comment: When diagnostic [...] for this test is supported by the Finance Specialist of Health and Human Service's declaration that [...] used). Performed By: #### U ACSIND #### [facility] [address] [place] [address] Dr. Megan Caballero SED RATE WESTERGRENon 2022 SED RATE 55 mm/hr Critically high <=30 [facility] Comment on above: Performed By: #### SEDR #### [facility] [address] [place] [address] Dr. Megan Caballero TSHon 05-25-2022 TSH 0.533 uIU/mL Normal 0.358-3.74 0 [facility] Comment on above: Performed By: #### TSH #### [facility] [address] [place] [address] Dr. Megan Caballero UA (CLEAN/CATCH) CARBON PL[employer] GRINDER/MICRO I F IND.on 05-25-2022 Bilirubin Ql (U) Negative Normal NEGATIVE [facility] Comment on above: Performed By: #### UACSIND #### [facility] [address] [place] [address] Dr. Megan Caballero Clarity (U) CLEAR Normal CLEAR [facility] Comment on above: Performed By: #### UACSIND #### [facility] [address] [place] [address] Dr. Megan Caballero Color (U) LT. YELLOW Normal YELLOW [facility] Comment on above: Performed By: #### UACSIND #### [facility] [address] [place] [address] Dr. Megan Caballero Glucose Ql (U) Negative Normal NEGATIVE [facility] Comment on above: Performed By: #### UACSIND #### [facility] [address] [place] [address] Dr. Megan Caballero Hemoglobin Ql (U) TRACE-LYSED Abnormal NEGATIVE [facility] Comment on above: Performed By: #### UACSIND #### [facility] [address] [place] [address] Dr. Megan Caballero Ketones Ql (U) Negative Normal NEGATIVE [facility] Comment on above: Performed By: #### UACSIND #### [facility] [address] [place] [address] Dr. Megan Caballero LEUKOCYTES Negative Normal NEGATIVE [facility] Comment on above: Performed By: #### UACSIND #### [facility] [address] [place] [address] Dr. Megan Caballero Nitrite Ql (U) Negative Normal NEGATIVE [facility] Comment on above: Performed By: #### UACSIND #### [facility] [address] [place] [address] Dr. Megan Caballero pH (U) 6.5 [pH] Normal 5-9 [facility] Comment on above: Performed By: #### UACSIND #### [facility] [address] [place] [address] Dr. Megan Caballero SPEC GRAVITY 1.020 Normal 1.005-<=1. 025 [facility] Comment on above: Performed By: #### UACSIND #### [facility] [address] [place] [address] Dr. Megan Caballero UA PROTEIN Negative Normal NEGATIVE/ TRACE [facility] Comment on above: Performed By: #### UACSIND #### [facility] [address] [place] [address] Dr. Megan Caballero UR MICRO IND NOT INDICATED Normal [facility] Comment on above: Performed By: #### UACSIND #### [facility] [address] [place] [address] Dr. Megan Caballero Urobilinogen Qn (U) 0.2 {Renu'U}/dL Normal 0.2 - 1.0 [facility] Comment on above: Performed By: #### UACSIND #### [facility] [address] [place] [address] Dr. Megan Caballero URIC ACID SERUMon 05-25-2022 Urate [Mass/Vol] 4.3 mg/dL Normal 2.6-6.0 [facility] Comment on above: Performed By: #### CRP, URIC #### [facility] [address] [place] [address] Dr. Megan Caballero XR FEMUR RTon 05-25-2022 [...] JELANI MAR Date: 2022-05-24 23:28 Normal [facility] CBC W MANUAL DIFFon 05-25-19 23 ATYPICAL LYMPH # Normal [facility] Comment on above: Performed By: #### LACT #### [facility] [address] [place] [address] Dr. Megan Caballero ATYPICAL LYMPH % Normal [facility] Comment on above: Performed By: #### LACT #### [facility] [address] [place] [address] Dr. Megan Caballero BAND # 0.0 103/ul Normal 0.0-0.3 [facility] Comment on above: Performed By: #### LACT #### [facility] [address] [place] [address] Dr. Megan Caballero BAND % 0 % Normal 0-5 [facility] Comment on above: Performed By: #### LACT #### [facility] [address] [place] [address] Dr. Megan Caballero BASOM # 0.00 103/ul Normal 0.00-0.10 [facility] Comment on above: Performed By: #### LACT #### [facility] [address] [place] [address] Dr. Megan Caballero BASOM % 0.0 % Critically low 0.2-2.0 [facility] Comment on above: Performed By: #### LACT #### [facility] [address] [place] [address] Dr. Megan Caballero BLAST # Normal [facility] Comment on above: Performed By: #### LACT #### [facility] [address] [place] [address] Dr. Megan Caballero BLAST % Normal [facility] Comment on above: Performed By: #### LACT #### [facility] [address] [place] [address] Dr. Megan Caballero CORRECTED WBC Normal 4.0-11.0 [facility] Comment on above: Performed By: #### LACT #### [facility] [address] [place] [address] Dr. Megan Caballero EOS # 0.00 103/ul Normal 0.00-0.70 [facility] Comment on above: Performed By: #### LACT #### [facility] [address] [place] [address] Dr. Megan Caballero EOS% 0.0 % Critically low 0.9-7.0 [facility] Comment on above: Performed By: #### LACT #### [facility] [address] [place] [address] Dr. Megan Caballero HCT 37.2 % Normal 36.0-48.0 [facility] Comment on above: Performed By: #### LACT #### [facility] [address] [place] [address] Dr. Megan Caballero HGB 12.2 g/dl Normal 12.0-16.0 [facility] Comment on above: Performed By: #### LACT #### [facility] [address] [place] [address] Dr. Megan Caballero LYMPHM # 0.23 103/ul Critically low 1.20-3.80 [facility] Comment on above: Performed By: #### LACT #### [facility] [address] [place] [address] Dr. Megan Caballero LYMPHM% 2.0 % Critically low 20.5-60.0 [facility] Comment on above: Performed By: #### LACT #### [facility] [address] [place] [address] Dr. Megan Caballero MCH 28.6 pg Normal 26.7-34.0 [facility] Comment on above: Performed By: #### LACT #### [facility] [address] [place] [address] Dr. Megan Caballero MCHC 32.8 g/dl Normal 29.9-35.2 [facility] Comment on above: Performed By: #### LACT #### [facility] [address] [place] [address] Dr. Megan Caballero MCV 87.1 fL Normal 81.0-99.0 [facility] Comment on above: Performed By: #### LACT #### [facility] [address] [place] [address] Dr. Megan Caballero METAMYELOCYTE # Normal [facility] Comment on above: Performed By: #### LACT #### [facility] [address] [place] [address] Dr. Megan Caballero METAMYELOCYTE % Normal [facility] Comment on above: Performed By: #### LACT #### [facility] [address] [place] [address] Dr. Megan Caballero MONOM# 0.23 103/ul Critically low 0.30-0.80 [facility] Comment on above: Performed By: #### LACT #### [facility] [address] [place] [address] Dr. Megan Caballero MONOM% 2.0 % Normal 1.7-12.0 [facility] Comment on above: Performed By: #### LACT #### [facility] [address] [place] [address] Dr. Megan Caballero MPV 9.5 fL Normal 9.5-13.5 [facility] Comment on above: Performed By: #### LACT #### [facility] [address] [address] [address] Megan Caballero MYELOCYTE # Normal [facility] Comment on above: Performed By: #### LACT #### [facility] [address] [address] [address] Megan Caballero MYELOCYTE % Normal [facility] Comment on above: Performed By: #### LACT #### [facility] [address] [address] [address] Megan Caballero NRBC Normal [facility] Comment on above: Performed By: #### LACT #### [facility] [address] [address] [address] Megan Caballero PLT 197 103/ul Normal 150-450 [facility] Comment on above: Performed By: #### LACT #### [facility] [address] [place] [address] Dr. Megan Caballero RBC 4.27 106/ul Normal 4.20-5.40 [facility] Comment on above: Performed By: #### LACT #### [facility] [address] [place] [address] Dr. Megan Caballero RDW 13.1 % Normal 11.0-15.0 [facility] Comment on above: Performed By: #### LACT #### [facility] [address] [place] [address] Dr. Megan Caballero SEG # 10.85 103/ul Critically high 1.40-6.50 [facility] Comment on above: Performed By: #### LACT #### [facility] [address] [place] [address] Dr. Megan Caballero SEG % 96.0 % Critically high 43.0-75.0 [facility] Comment on above: Performed By: #### LACT #### [facility] [address] [place] [address] Dr. Megan Caballero WBC 11.3 103/ul Critically high 4.0-11.0 [facility] Comment on above: Performed By: #### LACT #### [facility] [address] [address] [address] Megan Caballero CRPon 05-24-2022 CRP 1.7 mg/dL Critically high <=1.0 [facility] Comment on above: Performed By: #### LACT #### [facility] [address] [place] [address] PELVIS WO CONon [...] of iterative reconstruction technique. FINDINGS: The initial stretch box tender views demonstrate bilateral total hip prostheses. The [...] JELANI MAR Date: 2022-05-24 21:51 Normal [facility] PROF CHEM 8 (BAS METB)on Anion gap [Moles/Vol] 12.6 mmol/L Normal [facility] Comment on above: Performed By: #### LACT #### [facility] [address] [place] [address] Dr. Megan Caballero Calcium [Mass/Vol] 8.6 mg/dL Normal 8.5-10.1 [facility] Comment on above: Performed By: #### LACT #### [facility] [address] [place] [address] Dr. Megan Caballero Chloride [Moles/Vol] 102 mmol/L Normal 98-107 [facility] Comment on above: Performed By: #### LACT #### [facility] [address] [place] [address] Dr. Megan Caballero CO2 [Moles/Vol] 28.6 mmol/L Normal 21.0-32.0 [facility] Comment on above: Performed By: #### LACT #### [facility] [address] [place] [address] Dr. Megan Caballero Creatinine [Mass/Vol] 0.73 mg/dL Normal 0.55-1.02 [facility] Comment on above: Performed By: #### LACT #### [facility] [address] [place] [address] Dr. Megan Caballero EGFR-AF ROMANIAN >60 Normal >=60 [facility] Comment on above: Performed By: #### LACT #### [facility] [address] [place] [address] Dr. Megan Caballero EGFR-NON AF ROMANIAN >60 Normal >=60 [facility] Comment on above: Performed By: #### LACT #### [facility] [address] [place] [address] Dr. Megan Caballero Glucose [Mass/Vol] 121 mg/dL Critically high 74-106 [facility] Comment on above: Performed By: #### LACT #### [facility] [address] [place] [address] Dr. Megan Caballero Potassium [Moles/Vol] 3.2 mmol/L Critically low 3.5-5.1 [facility] Comment on above: Performed By: #### LACT #### [facility] [address] [place] [address] Dr. Megan Caballero Sodium [Moles/Vol] 140 mmol/L Normal 136-145 [facility] Comment on above: Performed By: #### LACT #### [facility] [address] [place] [address] Dr. Megan Caballero Urea nitrogen [Mass/Vol] 15.0 mg/dL Normal 7.0-18.0 [facility] Comment on above: Performed By: #### LACT #### [facility] [address] [address] [address] Megan Caballero Urea nitrogen/Creatin ine [Mass ratio] 20.5 mg/mg Normal [facility] Comment on above: Performed By: #### LACT #### [facility] [address] [address] [address] Megan Caballero [facility] 54 mm/hr Critically high <=30 [facility] Comment on above: Performed By: #### SEDR #### [facility] [address] [address] [address] Megan Caballero CNOVon 05-30-2020 CNOV Office Visit (UROLAV ) ANGELIKA MUIR ([id number]) 1940 [place] Date Time Provider Department 05/30/20 6:00 PM NEGRO POMPA During your visit today, we recorded the following information about you: Pulse Blood pressure Weight 101/minute 141/67 98.4 kg Negro Pompa MD 05/30/2020 6:[address] [facility] [...] Via bladder scan. Referring Provider: NEGRO POMPA [[id number]] Allergies As of Date: 05/30/2020 Noted Allergy [...] 01/10/2014 Visit Notes: >> Kellclementina Arauz MA [facility] May 30, 2020 6:31 PM Status: Signed PVR = 71 ml Via bladder scan. Medications Discontinued During This Encounter Prescriptions - solifenacin 10 mg tablet (Discontinued) Take 5 mg by mouth once daily. Encounter Status:Closed by NEGRO POMPA MD on 05/30/20 Normal [facility] CNCOon 05-28-2020 CNCO Letter Text [facility] ANES POSTPROC EVALon 021 ANES POSTPROC EVAL HNO ID: [id number] Author: Ihsan Gamino Service: Anesthesiology Author Type: Anesthesiologist Type: Anesthesia Postprocedure Evaluation Filed: 05/01/2020 4:49 PM Note Text: POST ANESTHESIA EVALUATION NOTE : 1940 Procedure Summary Date: 05/01/20 Room / Location: [address] / [facility] Anesthesia Start: 1504 Anesthesia Stop: 1620 Procedures: [...] May 01, 2020 TIME: 4:49 PM CSN: [id number] [facility] ANES PRE-OPon 05-01-2020 ANES PRE-OP HNO ID: [id number] Author: Ihsan Gamino Service: Anesthesiology Author Type: [...] May 01, 2020 TIME: 3:53 PM CSN: [id number] [facility] HISTORY PHYSICALon HISTORY PHYSICAL HNO ID: [id number] Author: Negro Pompa Service: Urology Author Type: [...] Pompa MD May 01, 2020 1:22 PM [facility] OPERATIVE NOon 05-01-2020 OPERATIVE NO HNO ID: [id number] Author: Negro Pompa Service: Urology Author Type: Physician Type: Operative Report Filed: 05/01/2020 5:00 PM Note Text: OPERATIVE/PROCEDURE REPORT LOG ID: [id number] SURGERY/PROCEDURE DATE: 05/01/2020 INCISION/PROCEDURE START TIME: 3:28 PM INCISION CLOSE/PROCEDURE END TIME: 4:05 PM SURGEON(S)/PROCEDURALIST(S) AND DEPUTY PROBATION OFFICER(S): Surgeon(s) and Role: * Negro Pompa - [...] 2020 TIME: 4:45 PM PAGER/CONTACT #: Normal [facility] SURGICAL PATHOLOGYon 021 SURGICAL PATHOLOGY Specimen originated from [facility] Specimen #: [id number] Submitting Physician: NEGRO POMPA FINAL DIAGNOSIS Vaginal [...] cassette. DOUG/evens 05/02/2020 Gross examination performed at [facility], [address] [address] Date of Report: 05/06/2020 Date of Procedure: 05/01/2020 Date of Receipt: 05/02/2020 Submitted by: NEGRO POMPA Location: [facility] Diagnostic interpretation performed at [facility], [address] [place] [id number]. [place] Number: [id number] [facility] HOSPon 04-19-2020 HOSP Patient:Nany Muir MRN: Height:5' [...] notes entered within the past 30 days [facility] Provider Letteron 11-21-2019 Provider Letter (Inserted Image. Patricia ble to display) November 21, 2019 ANGELIKA MUIR [address] [place] [id number] ANGELIKA MUIR 1940 Dear Angelika, You missed [...] understanding. Sincerely, [facility]/Dr De La Cruz [facility] Ambulatory Clinical Summaryo n 10-27-2019 Ambulatory Clinical Summary {[id number] [facility] Patient Educationon 10-24-19 Patient Education Family Medicine [...] bladder worse. Your healthcare provider or a gallery assistant can explain ways to change what you [...] Document Reviewed: 01/02/2010 ExitCare? Patient Information ?2013 [employer]. Mireya [facility] Urology Office/Clinic Noteon 10-24-2019 Urology Office/Clinic [...] in 1 month. Ordered: PVR urine/bladder capacity/[place] 10778 Urnls Dip Stick Auto w/o Microscopy POC 88467 2. Other urethral stricture, female (N35.82: Other [...] Daily, # 30 tab(s), Refills(s) 1, Pharmacy: [facility] 536, 170, cm, 10/24/19 14:15:00 EDT, Height/Length Measured, 100, kg, 10/24/19 14:15:00 EDT, Weight Measured I have reviewed the previous health record information and history for this patient from Dr. De La Cruz Follow-up With When Contact Information Jono Faust MD, Bandar Devine In 1 month [facility] [address], [place] [address]- Additional Instructions: w/ PVR Patient Education Overactive [...] Protein Urine Dipstick: Negative (10/24/19 14:03:00) Specific [place] Urine Dipstick: 1.025 (10/24/19 14:03:00) Urine Appearance Urine Dipstick: Clear (10/24/19 14:03:00) Urine Color Urine Dipstick: Yellow (10/24/19 14:03:00) Urobilinogen Urine Dipstick: Normal 0.2-1 EU/dl (10/24/19 14:03:00) pH Urine Dipstick: 5.5 (10/24/19 14:03:00) Diagnostic Results PVR was reviewed at 85 cc. Urinalysis shows no infection. Normal [facility] Comment on above: Result Comment: Electronically Signed By : Jono Faust MD, Bandar Devine\.br\Date and Time Signed: 10/24/19 14:59 EDT\.br\Electronically Co-Signed By: Lida Ybarra MA\.br\Date and Time Co-Signed: 10/24/19 14:56 EDT Ambulatory Clinical Summaryo n 08-24-2019 Ambulatory Clinical Summary {[id number] Normal [facility] Reminderson 04-24-2019 Reminders - From: Kristen [...] may need scheduled for Cysto/ TVT Normal [facility] Coding Summary.on 04-21-2019 Coding Summary. CODING DATE: 020 FINAL [facility] STATUS: Home (Routine DC) PAYOR: Medicare APC [...] Garces Date Saved: 04/21/2019 01:56 pm Normal [facility] Patient Summaryon 02-02-2019 Patient Summary PATIENT DISCHARGE IN STRUCTIONS If you are having an emergency and are not able to reach your physician, CALL 911 or go to the nearest emergency room and take this document with you. [facility] 02/02/19 09:32 [address] [place] [address] PATIENT INFORMATION Name: ANGELIKA MUIR Address: [address] [place] [id number] Age: 78 Years Phone: [phone] : 1940 12:00 MRN: [id number] Sex: Female Race: White Ethnicity: Not Hispan/Lat Admitted From: Clinic or [facility] Medical Service: Orthopedic Surgery Nurse Unit/Bed: (NEHA) [...] Date: Amrik Vickers MD Orthopaedic Surg [address] [facility] [place] [address] [facility] [address] (1) Six Weeks Comment: Call for an Appointment Provider: Specialty: Address: Date: Eduardo Sharma MD Internal Medicine [address] [place] [phone] (1) Follow-up as needed Provider: Specialty: Address: Date: [facility]: [facility] [phone] Follow-up as needed ALLERGIES: No Known Medication [...] doses are changed, or new medications (including nyce-bgb-hdekznb products) are added. Ask your doctor if [...] Decisions Type: Living Will, Medical Power of Trackmobile Operator Copy of Advance Directive/Health Care Decisions on Chart: Patient/Family asked to provide copy SUICIDE HOTLINE: Your mental and emotional well-being are important. If you are in a mental health crisis, or having thoughts of suicide, please call the nationwide suicide hotline, anytime day or night, at 4-428-867-HWSK. Important information about accessing your health information through the [facility] patient portal If you initiated the self-registration process for [facility] during your stay, please check your personal email for an invitation to enroll in [employer] and complete the steps outlined in the email. If you would prefer to enroll while in the hospital, ask a member of your care team. We would be happy to assist you. If you have already enrolled in [employer], go to [email or web address] to login and access your health information. Thank you for choosing [facility]. PATIENT EDUCATION Fall Prevention in the Home [...] wet floors. ???Place frequently used items in ivkh-nx-swmth places. ???If you need to reach for something above you, use a sturdy step stool that has a grab bar. ???Keep electrical cables out of the way. ???Do not use floor yi or wax that makes floors slippery. If [...] include working with a physical therapist or safety trainer to improve your strength, balance, and endurance. This information is not intended to replace advice given to you by your health care provider. Make sure you discuss any questions you have with your health care provider. Document Released: 02/26/2003 Document Revised: 07/23/2015 Document Reviewed: 04/12/2015 [email or web address] Interactive Patient Education ?2016 [email or web address] Incentive Spirometer An incentive spirometer is [...] 07/19/2007 Document Revised: 03/29/2015 Document Reviewed: 10/15/2014 [email or web address] Interactive Patient Education ?2016 [email or web address] Pain Medicine Instructions HOW CAN PAIN [...] liver damage. Acetaminophen is found in many wpff-ewd-hpbzinb (OTC) and prescription medicines. If you are [...] 06/14/2001 Document Revised: 07/23/2015 Document Reviewed: 01/10/2015 [email or web address] Interactive Patient Education ?2016 [employer]. Preventing Constipation After Surgery Constipation is when [...] a bowel movement. ???Having hard, dry, or zluaix-qkft-thtwop stools. ???Feeling full or bloated. ???Having pain in the lower abdomen. ???Not feeling relief after having a bowel movement. HOME CARE INSTRUCTIONS Diet ???Eat foods that have a lot of fiber. These include fruits, vegetables, whole grains, and beans. Limit foods high in fat and processed sugars. These include anguillan fries, hamburgers, cookies, and candy. ???Take a [...] softener, laxative, or fiber supplement. ???Only take fbqb-erk-zilkown or prescription medicines as directed by your [...] 07/03/2013 Document Revised: 03/29/2015 Document Reviewed: 07/03/2013 [email or web address] Interactive Patient Education ?2016 [email or web address] Venous Thromboembolism, Prevention A venous thromboembolism [...] 02/24/2010 Document Revised: 11/30/2012 Document Reviewed: 07/03/2015 [email or web address] Interactive Patient Education ?2016 [email or web address] VIRUSES OR BACTERIA: WHAT'S GOT YOU [...] Relationship to Patient Clinician Signature Date/Time Normal [facility] Basic Metabolic Panelon 01-20 Calcium [Mass/Vol] 8.4 mg/dL Low 8.5-10.6 [facility] Chloride [Moles/Vol] 105 mmol/L Normal 98-107 [facility] CO2 [Moles/Vol] 32 mmol/L Normal 21-32 [facility] Creatinine [Mass/Vol] 0.77 mg/dL Normal 0.55-1.02 [facility] Glucose [Mass/Vol] 108 mg/dL High 70-99 [facility] Potassium [Moles/Vol] 4.1 mmol/L Normal 3.5-5.1 [facility] Sodium [Moles/Vol] 141 mmol/L Normal 136-145 [facility] Urea nitrogen (BldV) [Mass/Vol] 20 mg/dL High 7.0-18.0 [facility] Urea nitrogen/Creatin ine [Mass ratio] 26 mg/mg Normal [facility] Basic Metabolic Panelon 01-20 Calcium [Mass/Vol] 8.4 mg/dL Low 8.5-10.6 [facility] Chloride [Moles/Vol] 105 mmol/L Normal 98-107 [facility] CO2 [Moles/Vol] 31 mmol/L Normal 21-32 [facility] Creatinine [Mass/Vol] 0.86 mg/dL Normal 0.55-1.02 [facility] Glucose [Mass/Vol] 101 mg/dL High 70-99 [facility] Potassium [Moles/Vol] 4.1 mmol/L Normal 3.5-5.1 [facility] Sodium [Moles/Vol] 140 mmol/L Normal 136-145 [facility] Urea nitrogen (BldV) [Mass/Vol] 21 mg/dL High 7.0-18.0 [facility] Urea nitrogen/Creatin ine [Mass ratio] 24 mg/mg Normal [facility] Anesthesia Recordon 01-31-20 Anesthesia Record Patient: ANGELIKA MUIR MRN: [facility])-[id number] Age: 78 years Sex: Female : 1940 Associated Diagnoses: None Author: Nadine Barrera MD Procedure Time Out [place] Protocol: patient identity verified, site verified, side verified, procedure to be done verified, patient position verified. REGIONAL ANESTHESIA PROCEDURE Procedure date and begin time: See nurses notes. Procedure date and end time: See nurses notes. Performed by: Nadine Barrera MD. Assisted by: no botany laboratory assistant. Informed consent: signed by patient. Technique: [...] Diagnosis: M25.561 M17.11 Knee Pain . Normal [facility] Anesthesia Record Patient: ANGELIKA MUIR MRN: (MEL)-[id number] Age: 78 years Sex: Female : 1940 Associated Diagnoses: None Author: Nadine Barrera MD Procedure Time Out [place] Protocol: patient identity verified, site verified, side verified, procedure to be done verified, patient position verified. REGIONAL ANESTHESIA PROCEDURE Procedure date and begin time: See nurses notes. Procedure date and end time: See nurses notes. Performed by: Nadine Barrera MD. Assisted by: no botany laboratory assistant. Informed consent: signed by patient. Technique: [...] M25.561 M17.11 Knee Pain OA . Normal [facility] Basic Metabolic Panelon 11- 1-2019 Calcium [Mass/Vol] 9.0 mg/dL Normal 8.5-10.6 [facility] Chloride [Moles/Vol] 106 mmol/L Normal 98-107 [facility] CO2 [Moles/Vol] 29 mmol/L Normal 21-32 [facility] Creatinine [Mass/Vol] 0.84 mg/dL Normal 0.55-1.02 [facility] Glucose [Mass/Vol] 105 mg/dL High 70-99 [facility] Potassium [Moles/Vol] 3.7 mmol/L Normal 3.5-5.1 [facility] Sodium [Moles/Vol] 143 mmol/L Normal 136-145 [facility] Urea nitrogen (BldV) [Mass/Vol] 23 mg/dL High 7.0-18.0 [facility] Urea nitrogen/Creatin ine [Mass ratio] 27 mg/mg Normal [facility] OR Nursingon 01-30-2019 OR Nursing Normal [facility] PACU I Nursingon 01-30-2019 PACU I Nursing CO NA PACU I Nursing Record Summary Primary Physician: Amrik Vickers MD Finalized Date/Time: 01/30/19 12:48:37 Pt. Name: JOSEANGELIKA/Sex: 1940 Female Med Rec #: [id number] Physician: Amrik Vickers MD Financial #: [id number] Pt. Type: I Room/Bed: [address] [place] [address] Admit/Disch: 01/30/19 05:59:00 - Institution: [place] NA [...] By: Ana Rosas RN 01/30/19 12:48 Normal [facility] PreOp Nursingon 01-30-2019 PreOp Nursing CO NA PreOp Nursing Record Summary Primary Physician: Amrik Vickers MD Finalized Date/Time: 01/30/19 09:02:48 Pt. Name: ANGELIKA MUIR Judy Nayak/Sex: 1940 Female Med Rec #: [id number] Physician: Amrik Vickers MD Financial #: [id number] Pt. Type: I Room/Bed: / Admit/Disch: 01/30/19 [...] By: Chelsy Batista RN 01/30/19 09:02 Normal [facility] Basic Metabolic Panelon 10-3 Calcium [Mass/Vol] 9.0 mg/dL Normal 8.5-10.6 [facility] Chloride [Moles/Vol] 103 mmol/L Normal 98-107 [facility] CO2 [Moles/Vol] 31 mmol/L Normal 21-32 [facility] Creatinine [Mass/Vol] 0.78 mg/dL Normal 0.55-1.02 [facility] Glucose [Mass/Vol] 90 mg/dL Normal 70-99 [facility] Potassium [Moles/Vol] 4.1 mmol/L Normal 3.5-5.1 [facility] Sodium [Moles/Vol] 142 mmol/L Normal 136-145 [facility] Urea nitrogen (BldV) [Mass/Vol] 19 mg/dL High 7.0-18.0 [facility] Urea nitrogen/Creatin ine [Mass ratio] 24 mg/mg Normal [facility] CBC with Differentialon 10-3 Basophils (Bld) [#/Vol] 0.0 thou/mcL Normal 0.0-0.2 [facility] Basophils/100 WBC (Bld) 0.8 % Normal 0-3 [facility] Differential cell count method Nom (Bld) AUTOMATED DIFFERENTIAL Normal [facility] Eosinophils (Bld) [#/Vol] 0.1 thou/mcL Normal 0.0-0.4 [facility] Eosinophils/100 WBC (Bld) 2.0 % Normal 0-7 [facility] Erythrocyte distribution width (RBC) [Entitic vol] 14.4 % Normal 11.7-15.0 [facility] Hematocrit (Bld) [Volume fraction] 36.7 % Normal 34.0-50.0 [facility] Hemoglobin (Bld) [Mass/Vol] 12.1 g/dL Normal 11.5-17.0 [facility] Lymphocytes (Bld) [#/Vol] 1.3 thou/mcL Normal 0.7-4.5 [facility] Lymphocytes/100 WBC (Bld) 26.0 % Normal 14-46 [facility] MCH (RBC) [Entitic mass] 29.2 Picograms Normal 27.0-34.0 [facility] MCHC (RBC) [Mass/Vol] 32.9 g/dL Normal 32.0-36.0 [facility] MCV (RBC) [Entitic vol] 88.7 fL Normal 80-98 [facility] Monocytes (Bld) [#/Vol] 0.4 thou/mcL Normal 0.1-1.0 [facility] Monocytes/100 WBC (Bld) 8.5 % Normal 4-13 [facility] Neutrophils (Bld) [#/Vol] 3.1 thou/mcL Normal 1.5-7.8 [facility] Neutrophils/100 WBC (Bld) 62.7 % Normal 40-74 [facility] Platelet mean volume (Bld) [Entitic vol] 8.4 fL Normal 7.5-11.2 [facility] Platelets (Bld) [#/Vol] 214 thou/mcL Normal 140-415 [facility] RBC (Bld) [#/Vol] 4.13 x(10)6/mcL Normal 3.80-5.60 [facility] WBC (Bld) [#/Vol] 5.0 thou/mcL Normal 4.0-10.5 [facility] Culture Methicillin Resistan t Staph aureuson 01-19-2019 MRSA isol Org specific cx Ql (Unsp spec) [facility] [facility] Microbiology PROCEDURE: Culture Methicillin Resistant Staph aureus SOURCE: Nasal Swab BODY SITE: COLLECTED DATE/TIME: 01/19/2019 15:10 EDT RECEIVED DATE/TIME: 01/19/2019 15:10 EDT START DATE/TIME: 01/19/2019 15:10 EDT FREE TEXT SOURCE: NASAL SWAB-. INTERFACED REPORTS Final Report [] Verified Date/Time/Personnel: 01/20/2019 21:24 EDT CONTRIBUTOR_SYSTEM, CO_PN *MRSA SCREEN* NEGATIVE FOR METHICILLIN(OXACILLIN) RESISTANT STAPHYLOCOCCUS AUREUS. Normal [facility] Comment on above: Performed By: #### [id number] #### [facility] [address], [place] Partial Thromboplastin Time (aPTT)on 01-19-2019 aPTT Coag (PPP) [Time] 31 Sec Normal 23.2-34.6 [facility] Prothrombin Timeon 9 INR Coag (Bld) [Relative time] 1.0 {INR} Normal [facility] Comment on above: Result Comment: DURING THE INDUCTION PHA SE OF ORAL ANTICOAGULATION, THE INR MAY NOT REFLECT THE ANTICOAGULANT STATUS OF THE PATIENT. THERAPEUTIC RANGES FOR INR'S ARE: MOST CLINICAL SITUATIONS: INR 2.0-3.0 MECHANICAL PROSTHETIC VALVES: INR 2.5-3.5 CRITICAL: INR 5.0 PT Coag (PPP) [Time] 12.6 Sec Normal 11.9-14.6 [facility] XR C-Spine 4-5 Viewson 01-19 XR C-Spine [...] disease, notably advanced at C5-C6 and C6-C7. [place] thanks you for the opportunity to care for your patient. Workstation ID: [id number] FINAL REPORT Dictated By: Fritz Styles MD 01/19/2019 21:13 Assigned Physician: Fritz Styles MD Reviewed and Electronically Signed By: Fritz Styles MD 01/19/2019 21:17 Transcribed by: JESSIE 01/19/2019 21:13 Technologist: KAYLIN Gomes [facility] Culture Anaerobicon 10-18-20 19 Bacteria identified Anaer cx Nom (Unsp spec) [facility] Microbiology PROCEDURE: Culture Anaerobic SOURCE: Joint Fl [...] EDT CONTRIBUTOR_SYSTEM, CO_PN CULTURE IN PROGRESS Normal [facility] Comment on above: Performed By: #### [id number] #### [place] [id number] [place], [place] Culture Body Fluid + Suscept ibility + Smear Directon 10-18-2018 Bacteria identified Sterile body fluid culture Nom (Unsp spec) [facility] Microbiology PROCEDURE: Culture Body Fluid + Susceptibility [...] NO EPITHELIALS SEEN, NO ORGANISMS SEEN Normal [facility] Comment on above: Performed By: #### [id number] #### [address] Culture Funguson 10-18-2018 Fungus identified Cx Nom (Unsp spec) [facility] Microbiology PROCEDURE: Culture Fungus SOURCE: Joint Fl [...] WILL BE HELD FOR 1-4 WEEKS Normal [facility] Comment on above: Performed By: #### [id number] #### [facility] [address], [place] XR SHOULDER LEFT MIN 2 VIEWS [...] I have reviewed andapproved this report. 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 Isaw her in our [place] office. She has had a complete evaluation [...] 11/06/2016/03:29 P/Ankur France M.D.Date Trans: 11/07/2016 06:05 A/Tyrese_JN:[id number]: Eduardo Sharma M.D. [address] [place] [address] [place] [facility] Vital Signs Date Time Vital Sign Value Performing Clinician Facility 03-24-2021 15:45-0500 Body height 166.37 cm Yolandagriselda Calvo Other [facility] Other 03-24-2021 15:45-0500 Body mass index (BMI) [Ratio] 35.23 kg/m2 [place] Other [facility] Other 03-24-2021 15:45-0500 Body temperature 99.4 [degF] Yolandagriselda Calvo Other [facility] Other 03-24-2021 15:45-0500 Body weight 97.52 kg Yolanda Schwerer Other [facility] Other 03-24-2021 15:45-0500 Diastolic blood pressure 78 mm[Hg] Yolanda Schwerer Other [facility] Other 03-24-2021 15:45-0500 SaO2% (BldA) [Mass fraction] 96 % Yolanda Schwerer Other [facility] Other 03-24-2021 15:45-0500 Systolic blood pressure 132 mm[Hg] Yolanda Schwerer Other [facility] Other Encounters Encounter Date Encounter Type Care Provider Facility Start: 04-02-2023 End: 04-02-2023 ambulatory [facility] Start: 09-07-2022 End: 09-07-2022 ambulatory Gennaro Cheng Facility:[facility] Start: 05-25-2022 End: 05-26-[address] SARIKA MUHAMMAD . Facility: Start: 07-15-2021 End: 07-15-2021 ambulatory Yolanda Schwerer Other [facility] Other Start: 07-15-2021 Telephone encounter Yolanda Schwerer [facility] Start: 04-28-2021 End: 04-28-2021 ambulatory Yolanda Schwerer Other [facility] Other Start: 04-28-2021 Telephone encounter Yolanda Schwerer [facility] Start: 04-03-2021 End: 04-03-2021 ambulatory Yolanda Schwerer Other [facility] Other Start: 04-03-2021 Telephone encounter Yolanda Schwerer [facility] Start: 03-24-2021 End: 03-24-2021 ambulatory Yolanda Schwerer Other [facility] Other Start: 03-24-2021 Office outpatient vi sit 15 minutes Yolanda Schwerer [facility] Start: 03-20-2021 End: 03-20-2021 ambulatory Yolanda Schwerer Other [facility] Other Start: 03-20-2021 Telephone encounter Yolanda Schwerer [facility] Start: 03-03-2021 End: 03-03-2021 ambulatory Yolanda Schwerer Other [facility] Other Start: 03-03-2021 Telephone encounter Yolanda Schwerer [facility] Start: 07-21-2017 Ambulatory JOSE LUIS LIZAMA [facility] Start: 11-06-2016 End: 11-07-2016 Ambulatory ANKUR FRANCE Facility:[facility] Immunizations Immunization Date Immunization Notes Care Provider Chava lan 07-05-2020 COVID-19 Vaccine Pfi zer - Documentation Purposes Only Yolanda Schwerer Other [facility] Other 06-07-2020 COVID-19 Vaccine Pfi zer - Documentation Purposes Only Yolanda Schwerer Other [facility] Other 04-30-2018 zoster vaccine recombinant Yolanda Schwerer Other [facility] Other 01-06-2018 zoster vaccine recombinant Yolanda Schwerer Other [facility] Other 03-19-2017 pneumococcal conjuga te vaccine, 13 valent Yolanda Schwerer Other [facility] Other 04-27-2016 pneumococcal polysaccharide vaccine, 23 valent Yolanda Schwerer Other [facility] Other 12-18-2014 pneumococcal polysaccharide vaccine, 23 valent Yolanda Schwerer Other [facility] Other 12-18-2014 zoster vaccine, live Yolanda Schwerer Other [facility] Other 02-11-2009 zoster vaccine, live Yolanda Schwerer Other [facility] Other Payers Date Payer Category Payer Self-pay 2003 Medicare [id number] 2003 Medicare [id number] 1959 Medicare [id number] 1959 Unknown [id number] 2. [id number] 1940 Unknown [id number] 1940 Unknown [id number] Medicare [id number] 2.1 [id number] Unknown [id number] [id number] Social History Date Type Detail Facility Unknown if ever smoked [facility] Other Sex Assigned At Sex Assigned At Bir th [facility] Other Clinical Note 05-24-2022 Note Date & [...] by: CAMILO ARNOLD Date: 2022-05-24 19:59 [facility] Evaluation note 03-24-2021 Note Date & Type Note Facility 03-24-2021 Evaluation note Encounter Date Diagnosis Assessment Notes Mar, Skin rash (ICD-10 - R21) i think eczema, will do clobetasol she already has this. will continue on lotramin. she will call in a few days if not improved. [facility] Other Progress note 05-30-2020 Note Date & Type Note Facility 05-30-2020 Note HNO ID: [id number] Author: Negro Pompa Service: ? Author Type: Physician Type: Progress Notes Filed: 05/30/2020 6:55 PM Note Text: [facility] [...] and concerns were addressed. Negro Pompa MD [facility] Clinical Note 04-18-2020 Note Date & Type Note Facility 04-18-2020 Note Patient Outreach (CO OCC3) ANGELIKA MUIR ([id number]) 1940 F Date Time Provider Department 04/18/20 PENNY RIBEIRO During your visit today, we recorded the following information about you: Allergies As of Date: 04/18/2020 Noted Allergy Reaction TAPE (ADHESIVE TAPE (ROSINS)) 06/28/2012 2 - Rash Date Reviewed: 01/09/2020 Reviewed by: Niru Cunningham - Fully Assessed Order(s):SARS-COVID VACCINE 1ST DOSE APPT [[id number]] Order #: [id number] FUTURE Prescriptions as of 04/18/2020 Sig: SERTRALINE [...] Encounter Status:Closed by EPIC, PRODUSER on 04/22/20 [facility] Evaluation note Note Date & Type Note Facility Evaluation note No Information [facility] Other History general Narrative - Reported Note [...] SHOULDER X2 Hospitalization History see surgical hx [facility] Other Summary Purpose Family History No Family [...] Assessments Note Patient: ANGELIKA MUIR MR N: [id number] Age: 78 years Sex: Female : 1940 Associated Diagnoses: None Author: Elbert Gleason MD Assessment Assessment Diagnosis: Osteoarthritis (DIW05-PB M17.11, 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 Right TKA. Dr. Vickers. [...] Pain is currently described as intermittent but hnnarycg-oi-lhdfxo, particularly with activity. Symptoms have failed to respond to more conservative measures, and she now presents for surgical intervention. Please see below regarding the status of active medical conditions and assessment and plan for preoperative medical risk stratification. Medical Illnesses: 1. Osteoarthritis affecting (more content not included)... Note CLINICAL SUMMARY Please take this summary document to your follow up appointments. [facility] 02/02/19 09:32 [address] [place]. [address] PATIENT INFORMATION Name: ANGELIKA MUIR Address: [address] [place] [id number] Age: 78 Years Phone: [phone] : 1940 12:00 MRN: [id number] Sex: Female Race: White Ethnicity: Not Hispan/Lat Admitted From: Clinic or [facility] Medical Service: Orthopedic Surgery Nurse Unit/Bed: (CO) 2NAN 0219-01 Admit Date: 01/30/2019 05:59 PCP: Eduardo Sharma MD PHYSICIANS INVOLVED WITH CARE Attending Physicians: Amrik Vickers MD - Orthopaedic Surg Admitting Physician: Amrik Vickers MD - Orthopaedic Surg Primary Care Physician:Eduardo Sharma MD,Internal Medicine, - Consults: Elbert Gleason MD - Internal Medicine RAMÍREZ Rod (more content not included)... Note Patient: ANGELIKA MUIR MR N: [id number] [facility]: [phone] Age: 78 years Sex: Female : 1940 [...] (more content not included)... Note HNO ID: [id number] Author: Cheryle Wilcox (Aa) Service: ? Author Type: Job Molder Type: Anesthesia Procedure Notes Filed: 05/01/2020 3:33 PM Note Text: ANESTHESIOLOGY PROCEDURE NOTE Airway General Information Procedure Start Time/Medication Administration: 05/01/2020 3:28 PM Patient location during procedure: OR Timeout Performed Pre-procedure: timeout performed Consent Obtained: Yes Patient identity confirmed: arm band, care sample steamer and patient Staffing Anesthesiologist: Ihsan Gamino CAA: Ankur Wilcox (Aa) Indications and Patient Condition Preoxygenated: yes Patient position: sniffing Indications for airway management: anesthesia anesthesia circuit Method: asleep Final Airway Details Final airway type: supraglottic airway Final Supraglottic Airway: IGEL Size 4 Seal Adequate: yes SIGNATURE: AZ Gonzales PATIENT NAME: Angelika Muir DATE: May 01, 2020 TIME: 3:33 PM CSN: [id number] Note HNO ID: [id number] Author: Ariana Gay Service: Urology Author Type: Resident Type: Brief Op Note Filed: 05/01/2020 4:09 PM Note Text: BRIEF OPERATIVE / PROCEDURE NOTE LOG ID: [id number] SURGERY/PROCEDURE DATE: 05/01/2020 INCISION/PROCEDURE START TIME: 3:28 PM INCISION CLOSE/PROCEDURE END TIME: 4:05 PM SURGEON(S)/PROCEDURALIST(S) AND DEPUTY PROBATION OFFICER(S): Surgeon(s) and Role: * Negro Pompa - [...] 01, 2020 TIME: 4:07 PM PAGER/CONTACT #: [phone] (more content not included)... Hospital Course Note CLINICAL SUMMARY Please take this summary document to your follow up appointments. [facility] 02/02/19 09:32 [address] [place]. [address] PATIENT INFORMATION Name: ANGELIKA MUIR Address: [address] [place] [id number] Age: 78 Years Phone: [phone] : 1940 12:00 MRN: [id number] Sex: Female Race: White Ethnicity: Not Hispan/Lat Admitted From: Clinic or [facility] Medical Service: Orthopedic Surgery Nurse Unit/Bed: (TN) 2N 0219-01 Admit Date: 01/30/2019 05:59 PCP: Eduardo Sharma MD PHYSICIANS INVOLVED WITH CARE Attending Physicians: Rancho SIEGEL , Amrik Sutton - Orthopaedic Surg Admitting Physician: Rancho SIEGEL , Jean Claude - Orthopaedic Surg Primary Care Physician:Eduardo Sharma MD,Internal Medicine, - Consults: Rosibel SIEGEL , Elbert Kim - Internal Medicine RAMÍREZ Rod (more content not included)... Procedure Findings Note HNO ID: [id number] Author: Cheryle Wilcox (Aa) Service: ? Author Type: Job Molder Type: Anesthesia Procedure Notes Filed: 05/01/2020 3:33 PM Note Text: ANESTHESIOLOGY PROCEDURE NOTE Airway General Information Procedure Start Time/Medication Administration: 05/01/2020 3:28 PM Patient location during procedure: OR Timeout Performed Pre-procedure: timeout performed Consent Obtained: Yes Patient identity confirmed: arm band, care sample steamer and patient Staffing Anesthesiologist: Ihsan Gamino CAA: Ankur Wilcox (Aa) Indications and Patient Condition Preoxygenated: yes Patient position: sniffing Indications for airway management: anesthesia anesthesia circuit Method: asleep Final Airway Details Final airway type: supraglottic airway Final Supraglottic Airway: IGEL Size 4 Seal Adequate: yes SIGNATURE: AZ Gonzales PATIENT NAME: Angelika Muir DATE: May 01, 2020 TIME: 3:33 PM CSN: [id number] Note HNO ID: [id number] Author: Ariana kaplan (Martina) Victor Hugo Service: Urology Author Type: Resident Type: Brief Op Note Filed: 05/01/2020 4:09 PM Note Text: BRIEF OPERATIVE / PROCEDURE NOTE LOG ID: [id number] SURGERY/PROCEDURE DATE: 05/01/2020 INCISION/PROCEDURE START TIME: 3:28 PM INCISION CLOSE/PROCEDURE END TIME: 4:05 PM SURGEON(S)/PROCEDURALIST(S) AND DEPUTY PROBATION OFFICER(S): Surgeon(s) and Role: * Negro Pompa - [...] 01, 2020 TIME: 4:07 PM PAGER/CONTACT #: [phone] (more content not included)... Note Patient: ANGELIKA MUIR MR N: [id number] Age: 78 years Sex: Female : 1940 [...] section and content) DATE CREATED AUTHOR 09/09/2017 [facility] DATE CREATED AUTHOR AUTHOR'S ORGANIZ ATION 09/15/2017 [facility] DATE CREATED AUTHOR AUTHOR'S ORGANIZ ATION 02/06/2019 [facility] DATE CREATED AUTHOR AUTHOR'S ORGANIZ ATION 11/22/2019 [facility] DATE CREATED AUTHOR AUTHOR'S ORGANIZ ATION 05/08/2020 [facility] DATE CREATED AUTHOR AUTHOR'S ORGANIZ ATION 04/05/2021 [facility] DATE CREATED AUTHOR AUTHOR'S ORGANIZ ATION 05/31/2022 [facility] DATE CREATED AUTHOR AUTHOR'S ORGANIZ ATION 09/21/2022 [facility] DATE CREATED AUTHOR AUTHOR'S ORGANIZ ATION [...] BE BASED ON THE PRIMARY CLINICAL RECORDS. [facility]. provides no warranty or guarantee of the accuracy or completeness of information in this document.
--- NOTE | 2023-04-19 13:31 | P.CN_ITS ---
Consult Note: HPI Data of Consult Patient: new to practice Consult date: 04/19/23 Requesting Physician: Tony Holguin MD Primary Care Provider: CESIA CHAHAL Consult Narrative Reason for consult: Low back, right hip and thigh pain Narrative: 83yof who presents for evaluation. Longstanding low back, right hip and thigh pain. Worsened in past several months. Has history of PMR and has been on prednisone for 9 months. Started lyrica 50mg tid last week. No imaging of spine available for review. Has engaged in >6 weeks of provider directed home exercise program, including chiropractor, with minimal benefit. Denies adverse med side effects. cc:: CC: Tony Holguin MD Review of Systems ROS Status of ROS 10 or more systems reviewed and unremark able except as noted in history and below Meds Home Medications and Allergies Home Medications Medication Instructions Recorded Confirmed Type prednisone 5 mg tablet 20 mg PO DAILY 02/09/23 02/09/23 History Allergies Allergy/AdvReac Type Severity Reaction Status Date / Time No Known Drug Allergies Allergy Verified 11/05/22 14:34 Exam Narrative Exam Narrative: Psych-alert and oriented x 3. Attentive and appropriate, constitutionally normal, displays normal mood and affect per situation.? There are no obvious deficits in memory, reasoning, or intellect.? Skin-no obvious rashes, bruising, erythema noted to the patient's area of pain. Extremities- extremities are warm with minimal edema and palpable pulses. Lumbar-no significant tenderness to palpation noted in the lumbar spine and paraspinal musculature.? Pain is elicited with extension, and lateral rotation of the lumbar spine. Range of motion is slightly diminished with these motions due to pain. Facet loading maneuvers are positive bilaterally and do appear to be concordant with the patient's normal complaints of pain.? Coordination remains intact.? Gait remains non-antalgic. Assessment and Plan Assessment and Plan (1) Lumbago: Qualifiers: Chronicity: chronic Back pain laterality: unspecified Sciatica presence: unspecified whether sciatica present Qualified Code(s): M54.50 - Low back pain, unspecified; G89.29 - Other chronic pain (2) Right hip pain: Plan 83yof who presents for evaluation. Worsening low back and right hip and thigh pain. Will have her undergo imaging initially to determine etiology. Will order lumbar XR, XR sacrum, XR right hip. She is in agreement. Medications reviewed. Discussed that she should continue lyrica to see if this provides benefit. She expressed understanding. Follow up after imaging.
== END 2023-04-19 12:09 | disposition home or self-care (01) ==
LOC: PM 12:09
PROVIDERS: PCP Nurse Practitioner Family; Visit Provider Anesthesiology
DX: M54.50 Low back pain, unspecified (principal); G89.29 Other chronic pain; M25.551 Pain in right hip
CPT/HCPCS: G0463

== ENCOUNTER 2023-04-22 11:43 | Outpatient (OUT) | payer MEDICARE, OTHER, SELFPAY ==
--- OUTSIDE RECORDS SUMMARY | 2023-04-22 11:49 | XMS_ITS | CCD ---
Author Name Unknown Address [address] [place] [address] Organization [facility] Care Team Providers Care Fund Controller Name Role Phone , JOSE LUIS Haley Unavailable Unavailable SELF, SELF Unavailable Unavailable EDUARDO SHARMA Unavailable Unavailable LIZAMA, JOSE LUIS Y Unavailable Unavailable LIZAMAJOSE LUIS Y Unavailable Unavailable EDUARDO SHARMA Unavailable Unavailable ANKUR FRANCE Unavailable Unavailable ANKUR FRANCE Unavailable Unavailable EDUARDO SHARMA Unavailable Unavailable EDUARDO SHARMA Unavailable Unavailable Umesh Yolanda Unavailable SABINA ., DR SARIKA Osullivan Attending Unavailable MUHAMMAD ., DR SARIKA Osullivan Admitting Unavailable MUHAMMAD ., DR SARIKA Osullivan Consulting Unavailable [facility]ARVEY Primary Care Unavailable MIS, DR GARVEY Consulting Unavailable KASIA, DR IHSAN Lane Consulting Unavailable ESTELA CHUN Consulting Unavailable JORY MCMILLAN Consulting Unavailable CAMILO ARNOLD Consulting Unavailable JELANI MAR Consulting Unavailable ALVINO BENITEZ Consulting Unavailable MARIA ELENA GRAHAM Consulting Unavailable SISTER, WALI Consulting Unavailable Gennaro Cheng Attending Unavailable Gennaro Cheng Admitting Unavailable Umesh Yolanda E Primary Care Unavailable CESIA CHAHAL Attending Unavailable FRANKI CHAVES Referring Unavailable FRANKI CHAVES Primary Care Unavailable Allergies Allergy Classification Reported Allergen(s) Allergy Type Date of Onset Reaction(s) Facility (1 source) 77282,00; Translations: [17820,00] Propensity to adverse reactions (disorder) 9 [facility] (1 source) Adhesive agent; Translations: [...] disease (1 source) Atherosclerotic heart disease of [place] coronary artery without angina pectoris; Translations: [ATHSCL HEART DISEASE OF [place] CORONARY ARTERY W/O ANG PCTRS] Onset: 11-06-2016 Chronic Essential hypertension (6 sources) Essential hypertension; Translations: [Essential (primary) hypertension] Chronic Mood disorders (6 sources) Mood disorder; Translations: [Unspecified mood [affective] disorder] Chronic Osteoarthritis (13 sources) Osteoarthritis of right knee joint; Translations: [Unilateral primary osteoarthritis, right knee] Onset: 04-02-2023 Chronic Other aftercare (1 source) Other penitentiary (current) drug therapy; Translations: [OTH TYPE CASTER CURRENT DRUG THERAPY] Onset: 05-28-2022 Episodic Other [...] Onset: 11-06-2016 Episodic Other aftercare (1 source) correction (current) use of aspirin; Translations: [TYPE CASTER (CURRENT) USE OF ASPIRIN] Onset: 11-06-2016 Episodic [...] Antinuclear Abs, IFA Positive Critically abnormal . [facility] Comment on above: Result Comment: Negative <1:80 Borderline 1:80 Positive >1:80 Performed By: #### T 4F, TSH3, CRP, CMP, ESR, CBC #### [facility] [address] Homogeneous Pattern 1:160 High . [facility] Comment on above: Result Comment: ICAP nomenclature: [id number] Performed By: #### T 4F, TSH3, CRP, CMP, ESR, CBC #### [facility] [address] [place] [address] [place] Note 1 Normal . [facility] Comment on above: Result Comment: For more [...] titers Nucleosomes, Histones Drug-induced SLE Speckled Sm, INDUCTION HEATING EQUIPMENT SETTER, SCL-70, SLE,MCTD,PSS (diffuse form), SS-A/SS-B Sjogrens Nucleolar SCL-70, PM-1/SCL High titers Scleroderma, PM/DM Centromere Centromere PSS (limited form) w/Crest syndrome variable Nuclear Dot [id number] Primary Biliary Cirrhosis Nuclear GP210, Primary Biliary Cirrhosis Membrane vickey A,B,C Performed at: [address] [id number] [place]: Naldo Valdez PhD, Phone: [phone] PERFORMED BY: [place] [address] PATHOLOGIST OFFICE 365 CONSULTANT JORGE LUIS RUELAS M.D. Performed By: #### T 4F, TSH3, CRP, CMP, ESR, CBC #### [address] C-Reactive Proteinon 023 C-Reactive Protein 0.8 mg/dL High 0.0-0.5 [facility] Comment on above: Performed By: #### T4F, TSH3, CRP, CMP, ESR, CBC #### [address] Complete Blood Count Auto Di ffon 09-07-2022 Basophils (Bld) [#/Vol] 0.1 10*3/uL Normal 0.0-0.2 [facility] Comment on above: Performed By: #### T4F, TSH3, CRP, CMP, ESR, CBC #### [address] Basophils/100 WBC (Bld) 1.0 % Normal . [facility] Comment on above: Performed By: #### T4F, TSH3, CRP, CMP, ESR, CBC #### [address] [address] [place] Eosinophils (Bld) [#/Vol] 0.1 10*3/uL Normal 0.0-0.45 [facility] Comment on above: Performed By: #### T4F, TSH3, CRP, CMP, ESR, CBC #### [address] Eosinophils/100 WBC (Bld) 1.0 % Normal . [facility] Comment on above: Performed By: #### T4F, TSH3, CRP, CMP, ESR, CBC #### [address] Erythrocyte distribution width (RBC) [Ratio] 15.0 % Normal 11.9-15.3 [facility] Comment on above: Performed By: #### T4F, TSH3, CRP, CMP, ESR, CBC #### [address] Hematocrit (Bld) [Volume fraction] 36.3 % Normal 34.0-46.4 [facility] Comment on above: Performed By: #### T4F, TSH3, CRP, CMP, ESR, CBC #### [address] Hemoglobin (Bld) [Mass/Vol] 11.8 g/dL Normal 11.8-15.4 [facility] Comment on above: Performed By: #### T4F, TSH3, CRP, CMP, ESR, CBC #### [address] Lymphocytes (Bld) [#/Vol] 1.4 10*3/uL Normal 1.00-4.8 [facility] Comment on above: Performed By: #### T4F, TSH3, CRP, CMP, ESR, CBC #### [address] Lymphocytes/100 WBC (Bld) 20.9 % Normal . [facility] Comment on above: Performed By: #### T4F, TSH3, CRP, CMP, ESR, CBC #### [address] MCH (RBC) [Entitic mass] 28.9 pg Normal 24.7-34.3 [facility] Comment on above: Performed By: #### T4F, TSH3, CRP, CMP, ESR, CBC #### [address] MCV (RBC) [Entitic vol] 88.4 fL Normal 80-100 [facility] Comment on above: Performed By: #### T4F, TSH3, CRP, CMP, ESR, CBC #### [address] Mean Corpuscular HGB Conc 32.7 g/dL Normal 32.0-35.0 [facility] Comment on above: Performed By: #### T4F, TSH3, CRP, CMP, ESR, CBC #### [address] Monocytes (Bld) [#/Vol] 0.6 10*3/uL Normal 0.0-0.8 [facility] Comment on above: Performed By: #### T4F, TSH3, CRP, CMP, ESR, CBC #### [address] Monocytes/100 WBC (Bld) 9.2 % Normal . [facility] Comment on above: Performed By: #### T4F, TSH3, CRP, CMP, ESR, CBC #### [address] Neutrophils (Bld) [#/Vol] 4.4 10*3/uL Normal 1.8-7.7 [facility] Comment on above: Performed By: #### T4F, TSH3, CRP, CMP, ESR, CBC #### [address] Neutrophils/100 WBC (Bld) 67.9 % Normal . [facility] Comment on above: Performed By: #### T4F, TSH3, CRP, CMP, ESR, CBC #### [address] NRBC% 0.1 /100{WBC} Normal 0-0.5 [facility] Comment on above: Performed By: #### T4F, TSH3, CRP, CMP, ESR, CBC #### [address] Platelet mean volume (Bld) [Entitic vol] 8.8 fL Normal 6.3-10.7 [facility] Comment on above: Performed By: #### T4F, TSH3, CRP, CMP, ESR, CBC #### [address] Platelets (Bld) [#/Vol] 272 10*3/uL Normal 150-450 [facility] Comment on above: Performed By: #### T4F, TSH3, CRP, CMP, ESR, CBC #### [address] RBC (Bld) [#/Vol] 4.11 10*6/uL Normal 3.60-5.00 [facility] Comment on above: Performed By: #### T4F, TSH3, CRP, CMP, ESR, CBC #### [address] WBC (Bld) [#/Vol] 6.5 10*3/uL Normal 3.8-11.6 [facility] Comment on above: Performed By: #### T4F, TSH3, CRP, CMP, ESR, CBC #### [address] Comprehensive Metabolic Pane johana 09-07-2022 Albumin [Mass/Vol] 3.7 g/dL Normal 3.5-5.7 [facility] Comment on above: Performed By: #### T4F, TSH3, CRP, CMP, ESR, CBC #### [address] Albumin/Globulin [Mass ratio] 1.4 {ratio} Normal [facility] Comment on above: Performed By: #### T4F, TSH3, CRP, CMP, ESR, CBC #### [address] ALP [Catalytic activity/Vol] 83 U/L Normal 34-104 [facility] Comment on above: Performed By: #### T4F, TSH3, CRP, CMP, ESR, CBC #### [address] ALT [Catalytic activity/Vol] 9 U/L Normal 7-52 [facility] Comment on above: Performed By: #### T4F, TSH3, CRP, CMP, ESR, CBC #### [address] Anion gap [Moles/Vol] 11.9 mmol/L Normal 6.0-15.0 [facility] Comment on above: Performed By: #### T4F, TSH3, CRP, CMP, ESR, CBC #### [address] AST [Catalytic activity/Vol] 12 U/L Low 13-39 [facility] Comment on above: Performed By: #### T4F, TSH3, CRP, CMP, ESR, CBC #### [address] Bilirubin [Mass/Vol] 0.4 mg/dL Normal 0.3-1.0 [facility] Comment on above: Performed By: #### T4F, TSH3, CRP, CMP, ESR, CBC #### [address] Calcium [Mass/Vol] 9.0 mg/dL Normal 8.6-10.3 [facility] Comment on above: Performed By: #### T4F, TSH3, CRP, CMP, ESR, CBC #### [address] Chloride [Moles/Vol] 105 mmol/L Normal 98-107 [facility] Comment on above: Performed By: #### T4F, TSH3, CRP, CMP, ESR, CBC #### [address] CO2 [Moles/Vol] 30.4 mmol/L Normal 21.0-31.0 [facility] Comment on above: Performed By: #### T4F, TSH3, CRP, CMP, ESR, CBC #### [facility] [address] Creatinine [Mass/Vol] 0.92 mg/dL Normal 0.60-1.20 [facility] Comment on above: Performed By: #### T4F, TSH3, CRP, CMP, ESR, CBC #### [facility] [address] [place] [address] [place] GFR/1.73 sq M.predicted MDRD (S/P/Bld) [Vol rate/Area] mL/min/{1.73_m2} Normal [facility] Comment on above: Performed By: #### T4F, TSH3, CRP, CMP, ESR, CBC #### [address] Globulin (S) [Mass/Vol] 2.6 g/dL Normal [facility] Comment on above: Performed By: #### T4F, TSH3, CRP, CMP, ESR, CBC #### [address] Glucose [Mass/Vol] 92 mg/dL Normal 70-100 [facility] Comment on above: Result Comment: Random Glucose Reference Range is dependent on time and content of last meal. Glucose of more than 200 mg/dL in a nonstressed, ambulatory subject supports the diagnosis of Diabetes Mellitus. ADA recommended reference range Performed By: #### T 4F, TSH3, CRP, CMP, ESR, CBC #### [address] Potassium [Moles/Vol] 4.3 mmol/L Normal 3.5-5.1 [facility] Comment on above: Performed By: #### T4F, TSH3, CRP, CMP, ESR, CBC #### [address] Protein [Mass/Vol] 6.3 g/dL Low 6.4-8.9 [facility] Comment on above: Performed By: #### T4F, TSH3, CRP, CMP, ESR, CBC #### [facility] [address] Sodium [Moles/Vol] 143 mmol/L Normal 136-145 [facility] Comment on above: Performed By: #### T4F, TSH3, CRP, CMP, ESR, CBC #### [facility] [address] Urea nitrogen [Mass/Vol] 21 mg/dL Normal 7-25 [facility] Comment on above: Performed By: #### T4F, TSH3, CRP, CMP, ESR, CBC #### [facility] [address] [place] [address] [place] Dipstick and Microscopicon 0 09-07-2022 Appearance (U) Cloudy Critically abnormal Clear [facility] Comment on above: Order Comment: Name Collection Type:: Cl marcie-Voided Midstream Performed By: #### S PE, UPE RAND, VITO SERUM, VITO,URINE #### [facility] , #### CUU, ADDONUAPLUS #### [facility] [address] [place] [address] Bacteria,Urine 4+ High None Seen [facility] Comment on above: Order Comment: Name Collection Type:: Cl marcie-Voided Midstream Performed By: #### S PE, UPE RAND, VITO SERUM, VITO,URINE #### [facility] , #### CUU, ADDONUAPLUS #### [facility] [address] [place] [address] [place] Bilirubin,Urine Negative Normal Negative [facility] Comment on above: Order Comment: Name Collection Type:: Cl marcie-Voided Midstream Performed By: #### S PE, UPE RAND, VITO SERUM, VITO,URINE #### [facility] , #### CUU, ADDONUAPLUS #### [facility] [address] [place] [address] [place] Color (U) Yellow Normal Yellow [facility] Comment on above: Order Comment: Name Collection Type:: Cl marcie-Voided Midstream Performed By: #### S PE, UPE RAND, VITO SERUM, VITO,URINE #### [facility] , #### CUU, ADDONUAPLUS #### [facility] [address] [place] [address] Glucose Ql (U) Normal Normal Normal [facility] Comment on above: Order Comment: Name Collection Type:: Cl marcie-Voided Midstream Performed By: #### S PE, UPE RAND, VITO SERUM, VITO,URINE #### [facility] , #### CUU, ADDONUAPLUS #### [facility] [address] [place] [address] Hyaline Casts,Urine 0-8 Normal 0-8 [facility] Comment on above: Order Comment: Name Collection Type:: Cl marcie-Voided Midstream Result Comment: PERF ORMED BY: [place] [address] PATHOLOGIST OFFICE 365 CONSULTANT JORGE LUIS RUELAS M.D. Performed By: #### S PE, UPE RAND, VITO SERUM, VITO,URINE #### [facility] , #### CUU, ADDONUAPLUS #### [facility] [address] [place] [address] Ketones Ql (U) Trace High Negative [facility] Comment on above: Order Comment: Name Collection Type:: Cl marcie-Voided Midstream Performed By: #### S PE, UPE RAND, VITO SERUM, VITO,URINE #### [facility] , #### CUU, ADDONUAPLUS #### [facility] [address] [place] [address] Leukocyte esterase Test strip Ql (U) 1+ High Negative [facility] Comment on above: Order Comment: Name Collection Type:: Cl marcie-Voided Midstream Performed By: #### S PE, UPE RAND, VITO SERUM, VITO,URINE #### [facility] , #### CUU, ADDONUAPLUS #### [facility] [address] [place] [address] Nitrite,Urine Positive High Negative [facility] Comment on above: Order Comment: Name Collection Type:: Cl marcie-Voided Midstream Performed By: #### S PE, UPE RAND, VITO SERUM, VITO,URINE #### [facility] , #### CUU, ADDONUAPLUS #### [facility] [address] [place] [address] Occult Blood,Urine Negative Normal Negative [facility] Comment on above: Order Comment: Name Collection Type:: Cl marcie-Voided Midstream Performed By: #### S PE, UPE RAND, VITO SERUM, VITO,URINE #### [facility] , #### CUU, ADDONUAPLUS #### [address] pH (U) 5.5 [pH] Normal 5.0-9.0 [facility] Comment on above: Order Comment: Name Collection Type:: Cl marcie-Voided Midstream Performed By: #### S PE, UPE RAND, VITO SERUM, VITO,URINE #### [facility] , #### CUU, ADDONUAPLUS #### [facility] [address] [place] [address] Protein,Urine Negative Normal Negative [facility] Comment on above: Order Comment: Name Collection Type:: Cl marcie-Voided Midstream Performed By: #### S PE, UPE RAND, VITO SERUM, VITO,URINE #### [facility] , #### CUU, ADDONUAPLUS #### [facility] [address] [place] [address] [place] RBC,Urine 3-4 Normal 0-4 [facility] Comment on above: Order Comment: Name Collection Type:: Cl marcie-Voided Midstream Performed By: #### S PE, UPE RAND, VITO SERUM, VITO,URINE #### [facility] , #### CUU, ADDONUAPLUS #### [facility] [address] [place] [address] Specificy [place],Urine 1.027 Normal 1.001-1.03 0 [facility] Comment on above: Order Comment: Name Collection Type:: Cl marcie-Voided Midstream Performed By: #### S PE, UPE RAND, VITO SERUM, VITO,URINE #### [facility] , #### CUU, ADDONUAPLUS #### [facility] [address] [place] [address] Squamous Epithelial Cell,Urine 5-9 High 0-2 [facility] Comment on above: Order Comment: Name Collection Type:: Cl marcie-Voided Midstream Performed By: #### S PE, UPE RAND, VITO SERUM, VITO,URINE #### [facility] , #### CUU, ADDONUAPLUS #### [facility] [address] [place] [address] Urobilinogen,Uri ne Normal Normal Normal [facility] Comment on above: Order Comment: Name Collection Type:: Cl marcie-Voided Midstream Performed By: #### S PE, UPE RAND, VITO SERUM, VITO,URINE #### [facility] , #### CUU, ADDONUAPLUS #### [facility] [address] [place] [address] WBC,Urine 5-9 High 0-4 [facility] Comment on above: Order Comment: Name Collection Type:: Cl marcie-Voided Midstream Performed By: #### S PE, UPE RAND, VITO SERUM, VITO,URINE #### [facility] , #### CUU, ADDONUAPLUS #### [facility] [address] [place] [address] Erythrocyte Sedimentation Ra trent 09-07-2022 ESR (Bld) [Velocity] 63 mm/h High 0-29 [facility] Comment on above: Result Comment: PERFORMED BY: [place] [address] PATHOLOGIST OFFICE 365 CONSULTANT JORGE LUIS RUELAS M.D. Performed By: #### T 4F, TSH3, CRP, CMP, ESR, CBC #### [address] Free T4 (Free Thyroxine)on 0 09-07-2022 Free T4 [Mass/Vol] 0.96 ng/dL Normal 0.61-1.12 [facility] Comment on above: Performed By: #### T4F, TSH3, CRP, CMP, ESR, CBC #### [place] [address] [place] Immunofixation, (VITO), Urine on 09-07-2022 Immunofixation, (VITO), Urine Normal . [facility] Comment on above: Result Comment: No monoclonality detecte d. Performed at: - [facility] [id number] [place]: Naldo Valdez PhD, Phone: [phone] Performed By: #### T 4F, TSH3, CRP, CMP, ESR, CBC #### [place] [address] [place] Immunofixation,Serumon 09-07 Immunofixation, Serum Normal . [facility] Comment on above: Result Comment: No monoclonality detecte d. Performed By: #### S PE, UPE RAND, VITO SERUM, VITO,URINE #### [facility] , #### CUU, ADDONUAPLUS #### [place] [address] [place] Immunoglobulin A, Serum 107 mg/dL Normal 64-422 [facility] Comment on above: Performed By: #### SPE, UPE RAND, VITO SE RUM, VITO,URINE #### [facility] , #### CUU, ADDONUAPLUS #### [place] [address] [place] Immunoglobulin G 972 mg/dL Normal [id number] [facility] Comment on above: Performed By: #### SPE, UPE RAND, VITO SE RUM, VITO,URINE #### [facility] , #### CUU, ADDONUAPLUS #### [facility] [address] [place] [id number] [place] Immunoglobulin M, Serum 348 mg/dL High 26-217 [facility] Comment on above: Result Comment: Performed at: [facility] [id number] [place]: Naldo Valdez PhD, Phone: [phone] Performed By: #### S PE, UPE RAND, VITO SERUM, VITO,URINE #### [facility] , #### CUU, ADDONUAPLUS #### [facility] [address] [place] [address] [place] Protein Electro, Random Urin chester 09-07-2022 Albumin, Urine 15.7 % Normal . [facility] Comment on above: Performed By: #### T4F, TSH3, CRP, CMP, ESR, CBC #### [facility] [address] [place] [address] [place] Iqgyk-2-Tvwerdzn , Urine 1.3 % Normal . [facility] Comment on above: Performed By: #### T4F, TSH3, CRP, CMP, ESR, CBC #### [facility] [address] [place] [address] [place] Xbqnk-8-Tcehewip , Urine 17.8 % Normal . [facility] Comment on above: Performed By: #### T4F, TSH3, CRP, CMP, ESR, CBC #### [facility] [address] [place] [id number] [place] Beta Globulin, Urine 36.1 % Normal . [facility] Comment on above: Performed By: #### T4F, TSH3, CRP, CMP, ESR, CBC #### [facility] [address] [place] [id number] [place] Gamma Globulin, Urine 29.0 % Normal . [facility] Comment on above: Performed By: #### T4F, TSH3, CRP, CMP, ESR, CBC #### [address] M-Virgil % Not Observed Normal Not Observed [facility] Comment on above: Performed By: #### T4F, TSH3, CRP, CMP, ESR, CBC #### [address] Please Note: Normal . [facility] Comment on above: Result Comment: Protein electrophoresis scan will follow via computer, mail, or wood inspector delivery. PERFORMED BY: [place] [address] PATHOLOGIST OFFICE 365 CONSULTANT JORGE LUIS RUELAS M.D. Performed By: #### T 4F, TSH3, CRP, CMP, ESR, CBC #### [address] Protein (U) [Mass/Vol] 27.7 mg/dL Normal Not Estab. [facility] Comment on above: Performed By: #### T4F, TSH3, CRP, CMP, ESR, CBC #### [address] Protein Electrophoresis, Ser umon 09-07-2022 Albumin [Mass/Vol] 3.3 g/dL Normal 2.9-4.4 [facility] Comment on above: Performed By: #### SPE, UPE RAND, VITO SE RUM, VITO,URINE #### [facility] , #### CUU, ADDONUAPLUS #### [address] Albumin/Globulin [Mass ratio] 1.1 {ratio} Normal 0.7-1.7 [facility] Comment on above: Performed By: #### SPE, UPE RAND, VITO SE RUM, VITO,URINE #### [facility] , #### CUU, ADDONUAPLUS #### [address] Bklzu-9-Chgkgzjp 0.3 g/dL Normal 0.0-0.4 [facility] Comment on above: Performed By: #### SPE, UPE RAND, VITO SE RUM, VITO,URINE #### [facility] , #### CUU, ADDONUAPLUS #### [facility] [address] [place] [address] Wzqkp-8-Aqrroijz 0.9 g/dL Normal 0.4-1.0 [facility] Comment on above: Performed By: #### SPE, UPE RAND, VITO SE RUM, VITO,URINE #### [facility] , #### CUU, ADDONUAPLUS #### [facility] [address] [place] [address] [place] Beta Globulin 0.9 g/dL Normal 0.7-1.3 [facility] Comment on above: Performed By: #### SPE, UPE RAND, VITO SE RUM, VITO,URINE #### [facility] , #### CUU, ADDONUAPLUS #### [facility] [address] [place] [address] Gamma Globulin 1.1 g/dL Normal 0.4-1.8 [facility] Comment on above: Performed By: #### SPE, UPE RAND, VITO SE RUM, VITO,URINE #### [facility] , #### CUU, ADDONUAPLUS #### [facility] [address] [place] [address] [place] Globulin (S) [Mass/Vol] 3.1 g/dL Normal 2.2-3.9 [facility] Comment on above: Performed By: #### SPE, UPE RAND, VITO SE RUM, VITO,URINE #### [facility] , #### CUU, ADDONUAPLUS #### [facility] [address] [place] [address] M-Virgil Not Observed Normal Not Observed [facility] Comment on above: Performed By: #### SPE, UPE RAND, VITO SE RUM, VITO,URINE #### [facility] , #### CUU, ADDONUAPLUS #### [address] Protein [Mass/Vol] 6.4 g/dL Normal 6.0-8.5 [facility] Comment on above: Performed By: #### SPE, UPE RAND, VITO SE RUM, VITO,URINE #### [facility] , #### CUU, ADDONUAPLUS #### [facility] [address] [place] [address] SPE-Note Normal . [facility] Comment on above: Result Comment: Protein electrophoresis scan will follow via computer, mail, or wood inspector delivery. Performed at: [address] [id number] [place]: Naldo Valdez PhD, Phone: [phone] PERFORMED BY: [place] [address] PATHOLOGIST OFFICE 365 CONSULTANT JORGE LUIS RUELAS M.D. Performed By: #### S PE, UPE RAND, VITO SERUM, VITO,URINE #### [facility] , #### CUU, ADDONUAPLUS #### [address] Thyroid Stimulating Hormoneo n 09-07-2022 TSH Qn 1.60 m[IU]/L Normal 0.45-5.33 [facility] Comment on above: Result Comment: PERFORMED BY: [place] [address] PATHOLOGIST OFFICE 365 CONSULTANT JORGE LUIS RUELAS M.D. Performed By: #### T 4F, TSH3, CRP, CMP, ESR, CBC #### [address] Urine Cultureon 09-07-2022 Bacteria identified Cx Nom (U) ORGANISM: Escherichia coli (O:ESCCOL) [place] Count >100,000 Aerobic DELFIN Charge (NMIC56) SUSCEPTIBILITY [...] RESISTANT TO ALL B-LACTAM DRUGS. PERFORMED BY: [place] [address] PATHOLOGIST OFFICE 365 CONSULTANT JORGE LUIS RUELAS M.D. [facility] Comment on above: Performed By: #### CORNELL DUTTA RAND, VITO SE RUM, VITO,URINE #### [facility] , #### CUU, ADDONUAPLUS #### [address] CULTURE URINEon 05-28-2022 CULTURE URINE Isolate [...] F Trimethoprim/Sulfamethoxazole <=20 S F Normal [facility] Comment on above: Performed By: #### UACSIND #### [facility] [address] [place] [address] Dr. Megan Caballero ALDOLASEon 05-27-2022 Aldolase 5.8 U/L Normal 3.3-10.3 [facility] Comment on above: Performed By: #### LACT #### [facility] [address] [place] [address] Dr. Megan Caballero TAO DIRECTon 05-27-2022 TAO Direct Negative Normal Negative [facility] Comment on above: Performed By: #### LACT #### [facility] [address] [place] [address] Dr. Megan Caballero RHEUMATOID FACTORon 05-28-19 23 RA Latex Turbid. 28.2 IU/mL Critically high <14.0 [facility] Comment on above: Performed By: #### LACT #### [facility] [address] [place] [address] Dr. Megan Caballero CBC AUTO DIFFon 05-26-2022 BASO # 0.0 103/ul Normal 0.0-0.1 [facility] Comment on above: Performed By: #### LACT #### [facility] [address] [place] [address] Dr. Megan Caballero Basophils/100 WBC (Bld) 0.1 % Critically low 0.2-2.0 [facility] Comment on above: Performed By: #### LACT #### [facility] [address] [place] [address] Dr. Megan Caballero EO # 0.0 103/ul Normal 0.0-0.7 [facility] Comment on above: Performed By: #### LACT #### [facility] [address] [place] [address] Dr. Megan Caballero Eosinophils/100 WBC (Bld) 0.0 % Critically low 0.9-7.0 [facility] Comment on above: Performed By: #### LACT #### [facility] [address] [place] [address] Dr. Megan Caballero Erythrocyte distribution width (RBC) [Ratio] 13.4 % Normal 11.0-15.0 [facility] Comment on above: Performed By: #### LACT #### [facility] [address] [place] [address] Dr. Megan Caballero Hematocrit (Bld) [Volume fraction] 33.4 % Critically low 36.0-48.0 [facility] Comment on above: Performed By: #### LACT #### [facility] [address] [place] [address] Dr. Megan Caballero Hemoglobin (Bld) [Mass/Vol] 11.0 g/dL Critically low 12.0-16.0 [facility] Comment on above: Performed By: #### LACT #### [facility] [address] [place] [address] Dr. Megan Caballero IG # 0.12 10e3/ul Critically high 0.00-0.03 [facility] Comment on above: Performed By: #### LACT #### [facility] [address] [place] [address] Dr. Megan Caballero IG % 0.9 % Critically high 0.0-0.5 [facility] Comment on above: Performed By: #### LACT #### [facility] [address] [place] [address] Dr. Megan Caballero LYMPH # 0.8 103/ul Critically low 1.2-3.8 [facility] Comment on above: Performed By: #### LACT #### [facility] [address] [place] [address] Dr. Megan Caballero Lymphocytes/100 WBC (Bld) 5.7 % Critically low 20.5-60.0 [facility] Comment on above: Performed By: #### LACT #### [facility] [address] [place] [address] Dr. Megan Caballero MANUAL DIFF REQ NO Normal [facility] Comment on above: Performed By: #### LACT #### [facility] [address] [place] [address] Dr. Megan Caballero MCH (RBC) [Entitic mass] 29.2 pg Normal 26.7-34.0 [facility] Comment on above: Performed By: #### LACT #### [facility] [address] [place] [address] Dr. Megan Caballero MCHC (RBC) [Mass/Vol] 32.9 g/dL Normal 29.9-35.2 [facility] Comment on above: Performed By: #### LACT #### [facility] [address] [place] [address] Dr. Megan Caballero MCV (RBC) [Entitic vol] 88.6 fL Normal 81.0-99.0 [facility] Comment on above: Performed By: #### LACT #### [facility] [address] [place] [address] Dr. Megan Caballero MONO # 1.1 103/ul Critically high 0.3-0.8 [facility] Comment on above: Performed By: #### LACT #### [facility] [address] [place] [address] Dr. Megan Caballero Monocytes/100 WBC (Bld) 7.9 % Normal 1.7-12.0 [facility] Comment on above: Performed By: #### LACT #### [facility] [address] [place] [address] Dr. Megan Caballero NEUT # 11.9 103/ul Critically high 1.4-6.5 [facility] Comment on above: Performed By: #### LACT #### [facility] [address] [place] [address] Dr. Megan Caballero Neutrophils/100 WBC (Bld) 85.4 % Critically high 43.0-75.0 [facility] Comment on above: Performed By: #### LACT #### [facility] [address] [place] [address] Dr. Megan Caballero Platelet mean volume (Bld) [Entitic vol] 10.2 fL Normal 9.5-13.5 [facility] Comment on above: Performed By: #### LACT #### [facility] [address] [place] [address] Dr. Megan Caballero PLT 176 103/ul Normal 150-450 [facility] Comment on above: Performed By: #### LACT #### [facility] [address] [place] [address] Dr. Megan Caballero RBC 3.77 106/ul Critically low 4.20-5.40 [facility] Comment on above: Performed By: #### LACT #### [facility] [address] [place] [address] Dr. Megan Caballero WBC 13.9 103/ul Critically high 4.0-11.0 [facility] Comment on above: Performed By: #### LACT #### [facility] [address] [place] [address] Dr. Megan Caballero CULTURE BLOODon 05-26-2022 Microscopic examination of blood, culture Culture Observations: NO GROWTH AT 5 DAYS. Normal [facility] Comment on above: Performed By: #### UACSIND #### [facility] [address] [place] [address] Dr. Megan Caballero Microscopic examination of blood, culture Culture Observations: NO GROWTH AT 5 DAYS. Normal [facility] Comment on above: Performed By: #### UACSIND #### [facility] [address] [place] [address] Dr. Megan Caballero LACTATE/LACTIC ACIDon 2022 Lactate [Moles/Vol] 1.1 mmol/L Normal 0.4-1.9 [facility] Comment on above: Performed By: #### LACT #### [facility] [address] [place] [address] Dr. Megan Caballero LIVER PROFILEon 05-26-2022 Albumin [Mass/Vol] 2.7 g/dL Critically low 3.4-5.0 [facility] Comment on above: Performed By: #### LACT #### [facility] [address] [place] [address] Dr. Megan Caballero Albumin/Globulin [Mass ratio] 0.6 {ratio} Normal [facility] Comment on above: Performed By: #### LACT #### [facility] [address] [place] [address] Dr. Megan Caballero ALP [Catalytic activity/Vol] 107 U/L Normal 46-116 [facility] Comment on above: Performed By: #### LACT #### [facility] [address] [place] [address] Dr. Megan Caballero ALT [Catalytic activity/Vol] 12 U/L Critically low 14-59 [facility] Comment on above: Performed By: #### LACT #### [facility] [address] [place] [address] Dr. Megan Caballero AST [Catalytic activity/Vol] 16 U/L Normal 15-37 [facility] Comment on above: Performed By: #### LACT #### [facility] [address] [place] [address] Dr. Megan Caballero BILI, CONJUGATED 0.1 mg/dL Normal 0.0-0.2 [facility] Comment on above: Performed By: #### LACT #### [facility] [address] [place] [address] Dr. Megan Caballero Bilirubin [Mass/Vol] 0.6 mg/dL Normal 0.2-1.0 [facility] Comment on above: Performed By: #### LACT #### [facility] [address] [place] [address] Dr. Megan Caballero Globulin (S) [Mass/Vol] 4.2 g/dL Normal [facility] Comment on above: Performed By: #### LACT #### [facility] [address] [place] [address] Dr. Megan Caballero Protein [Mass/Vol] 6.9 g/dL Normal 6.4-8.2 [facility] Comment on above: Performed By: #### LACT #### [facility] [address] [place] [address] Dr. Megan Caballero MAGNESIUMon 05-26-2022 Magnesium [Mass/Vol] 1.9 mg/dL Normal 1.8-2.4 [facility] Comment on above: Performed By: #### MG #### [facility] [address] [address] [address] Megan Caballero NM BONE SC WH [...] IHSAN PEDROZA Date: 2022-05-26 15:25 Normal [facility] PROF 14(COMP METB)on 023 Albumin [Mass/Vol] 2.4 g/dL Critically low 3.4-5.0 [facility] Comment on above: Performed By: #### LACT #### [facility] [address] [address] [address] Megan Caballero Albumin/Globulin [Mass ratio] 0.6 {ratio} Normal [facility] Comment on above: Performed By: #### LACT #### [facility] [address] [address] [address] Megan Caballero ALP [Catalytic activity/Vol] 92 U/L Normal 46-116 [facility] Comment on above: Performed By: #### LACT #### [facility] [address] [address] [address] Megan Caballero ALT [Catalytic activity/Vol] 10 U/L Critically low 14-59 [facility] Comment on above: Performed By: #### LACT #### [facility] [address] [address] [address] Megan Caballero Anion gap [Moles/Vol] 10.3 mmol/L Normal [facility] Comment on above: Performed By: #### LACT #### [facility] [address] [address] [address] Megan Caballero AST [Catalytic activity/Vol] 14 U/L Critically low 15-37 [facility] Comment on above: Performed By: #### LACT #### [facility] [address] [place] [address] Dr. Megan Caballero Bilirubin [Mass/Vol] 0.5 mg/dL Normal 0.2-1.0 [facility] Comment on above: Performed By: #### LACT #### [facility] [address] [place] [address] Dr. Megan Caballero Calcium [Mass/Vol] 8.2 mg/dL Critically low 8.5-10.1 [facility] Comment on above: Performed By: #### LACT #### [facility] [address] [place] [address] Dr. Megan Caballero Chloride [Moles/Vol] 104 mmol/L Normal 98-107 [facility] Comment on above: Performed By: #### LACT #### [facility] [address] [place] [address] Dr. Megan Caballero CO2 [Moles/Vol] 28.2 mmol/L Normal 21.0-32.0 [facility] Comment on above: Performed By: #### LACT #### [facility] [address] [place] [address] Dr. Megan Caballero Creatinine [Mass/Vol] 1.05 mg/dL Critically high 0.55-1.02 [facility] Comment on above: Performed By: #### LACT #### [facility] [address] [place] [address] Dr. Megan Caballero EGFR-AF JORDANIAN >60 Normal >=60 [facility] Comment on above: Performed By: #### LACT #### [facility] [address] [place] [address] Dr. Megan Caballero EGFR-NON AF JORDANIAN 50 mL/min/1.73m2 Critically low >=60 [facility] Comment on above: Performed By: #### LACT #### [facility] [address] [place] [address] Dr. Megan Caballero Globulin (S) [Mass/Vol] 3.7 g/dL Normal [facility] Comment on above: Performed By: #### LACT #### [facility] [address] [place] [address] Dr. Megan Caballero Glucose [Mass/Vol] 116 mg/dL Critically high 74-106 [facility] Comment on above: Performed By: #### LACT #### [facility] [address] [address] [address] Megan Caballero Potassium [Moles/Vol] 3.5 mmol/L Normal 3.5-5.1 [facility] Comment on above: Performed By: #### LACT #### [facility] [address] [place] [address] Dr. Megan Caballero Protein [Mass/Vol] 6.1 g/dL Critically low 6.4-8.2 [facility] Comment on above: Performed By: #### LACT #### [facility] [address] [place] [address] Dr. Megan Caballero Sodium [Moles/Vol] 139 mmol/L Normal 136-145 [facility] Comment on above: Performed By: #### LACT #### [facility] [address] [address] [address] Megan Caballero Urea nitrogen [Mass/Vol] 25.0 mg/dL Critically high 7.0-18.0 [facility] Comment on above: Performed By: #### LACT #### [facility] [address] [place] [address] Dr. Megan Caballero Urea nitrogen/Creatin ine [Mass ratio] 23.8 mg/mg Normal [facility] Comment on above: Performed By: #### LACT #### [facility] [address] [address] [address] Megan Caballero PTTon 05-26-2022 aPTT Coag (Bld) [Time] 31.1 s Normal 22.3-36.2 [facility] Comment on above: Performed By: #### PTT #### [facility] [address] [place] [address] Dr. Megan Caballero UA RANDOMon 05-26-2022 Bilirubin Ql (U) Negative Normal NEGATIVE [facility] Comment on above: Performed By: #### UA #### [facility] [address] [place] [address] Dr. Megan Caballero Clarity (U) CLEAR Normal CLEAR [facility] Comment on above: Performed By: #### UA #### [facility] [address] [place] [address] Dr. Megan Caballero Color (U) LT. YELLOW Normal YELLOW [facility] Comment on above: Performed By: #### UA #### [facility] [address] [place] [address] Dr. Megan Caballero Glucose Ql (U) Negative Normal NEGATIVE [facility] Comment on above: Performed By: #### UA #### [facility] [address] [place] [address] Dr. Megan Caballero Hemoglobin Ql (U) MODERATE Abnormal NEGATIVE [facility] Comment on above: Performed By: #### UA #### [facility] [address] [place] [address] Dr. Megan Caballero Ketones Ql (U) Negative Normal NEGATIVE [facility] Comment on above: Performed By: #### UA #### [facility] [address] [place] [address] Dr. Megan Caballero LEUKOCYTES TRACE Abnormal NEGATIVE [facility] Comment on above: Performed By: #### UA #### [facility] [address] [place] [address] Dr. Megan Caballero Nitrite Ql (U) Negative Normal NEGATIVE [facility] Comment on above: Performed By: #### UA #### [facility] [address] [place] [address] Dr. Megan Caballero pH (U) 6.0 [pH] Normal 5-9 [facility] Comment on above: Performed By: #### UA #### [facility] [address] [place] [address] Dr. Megan Caballero SPEC GRAVITY 1.015 Normal 1.005-<=1. 025 [facility] Comment on above: Performed By: #### UA #### [facility] [address] [place] [address] Dr. Megan Caballero UA PROTEIN 30 mg/dl Abnormal NEGATIVE/ TRACE [facility] Comment on above: Performed By: #### UA #### [facility] [address] [place] [address] Dr. Megan Caballero Urobilinogen Qn (U) 0.2 {Renu'U}/dL Normal 0.2 - 1.0 [facility] Comment on above: Performed By: #### UA #### [facility] [address] [place] [address] Dr. Megan Caballero XR CHEST 1 Von [...] ALVINO BENITEZ Date: 2022-05-26 04:41 Normal [facility] CPKon 05-25-2022 CK [Catalytic activity/Vol] 73 U/L Normal 26-192 [facility] Comment on above: Performed By: #### UACSIND #### [facility] [address] [place] [address] Dr. Megan Caballero CRPon 05-25-2022 CRP 11.9 mg/dL Critically high <=1.0 [facility] Comment on above: Performed By: #### CRP, URIC #### [facility] [address] [place] [address] Dr. Megan Caballero [facility] SARS-CoV-2 (COVID-19) RNA YU+probe Ql (Unsp spec) Not detected Normal NOT DETECTED [facility] Comment on above: Result Comment: When diagnostic [...] for this test is supported by the [employer] of [employer] and Human Service's declaration that [...] used). Performed By: #### U ACSIND #### [facility] [address] [place] [address] Dr. Megan Caballero [facility] SED RATE 55 mm/hr Critically high <=30 [facility] Comment on above: Performed By: #### SEDR #### [facility] [address] [place] [address] Dr. Megan Caballero TSHon 05-25-2022 TSH 0.533 uIU/mL Normal 0.358-3.74 0 [facility] Comment on above: Performed By: #### TSH #### [facility] [address] [place] [address] Dr. Megan Caballero UA (CLEAN/CATCH) [employer]IP[employer] MACHINE/MICRO I F IND.on 05-25-2022 Bilirubin Ql (U) Negative Normal NEGATIVE [facility] Comment on above: Performed By: #### UACSIND #### [facility] [address] [place] [address] Dr. Megan Caballero Clarity (U) CLEAR Normal CLEAR [facility] Comment on above: Performed By: #### UACSIND #### [facility] [address] [place] [address] Dr. Megan Caballero Color (U) LT. YELLOW Normal YELLOW [facility] Comment on above: Performed By: #### UACSIND #### [facility] [address] [address] [address] Megan Caballero Glucose Ql (U) Negative Normal NEGATIVE [facility] Comment on above: Performed By: #### UACSIND #### [facility] [address] [place] [address] Dr. Megan Caballero Hemoglobin Ql (U) TRACE-LYSED Abnormal NEGATIVE [facility] Comment on above: Performed By: #### UACSIND #### [facility] [address] [address] [address] Megan Caballero Ketones Ql (U) Negative Normal NEGATIVE [facility] Comment on above: Performed By: #### UACSIND #### [facility] [address] [place] [address] Dr. Megan Caballero LEUKOCYTES Negative Normal NEGATIVE [facility] Comment on above: Performed By: #### UACSIND #### [facility] [address] [place] [address] Dr. Megan Caballero Nitrite Ql (U) Negative Normal NEGATIVE [facility] Comment on above: Performed By: #### UACSIND #### [facility] [address] [place] [address] Dr. Megan Caballero pH (U) 6.5 [pH] Normal 5-9 [facility] Comment on above: Performed By: #### UACSIND #### [facility] [address] [place] [address] Dr. Megan Caballero SPEC GRAVITY 1.020 Normal 1.005-<=1. 025 [facility] Comment on above: Performed By: #### UACSIND #### [facility] [address] [place] [address] Dr. Megan Caballero UA PROTEIN Negative Normal NEGATIVE/ TRACE [facility] Comment on above: Performed By: #### UACSIND #### [facility] [address] [place] [address] Dr. Megan Caballero UR MICRO IND NOT INDICATED Normal [facility] Comment on above: Performed By: #### UACSIND #### [facility] [address] [place] [address] Dr. Megan Caballero Urobilinogen Qn (U) 0.2 {Renu'U}/dL Normal 0.2 - 1.0 [facility] Comment on above: Performed By: #### UACSIND #### [facility] [address] [place] [address] Dr. Megan Caballero URIC ACID SERUMon 05-25-2022 Urate [Mass/Vol] 4.3 mg/dL Normal 2.6-6.0 [facility] Comment on above: Performed By: #### CRP, URIC #### [facility] [address] [place] [address] Dr. Megan Caballero XR FEMUR RTon 05-25-2022 [...] JELANI MAR Date: 2022-05-24 23:28 Normal [facility] CBC W MANUAL DIFFon 05-25-19 23 ATYPICAL LYMPH # Normal [facility] Comment on above: Performed By: #### LACT #### [facility] [address] [place] [address] Dr. Megan Caballero ATYPICAL LYMPH % Normal [facility] Comment on above: Performed By: #### LACT #### [facility] [address] [place] [address] Dr. Megan Caballero BAND # 0.0 103/ul Normal 0.0-0.3 [facility] Comment on above: Performed By: #### LACT #### [facility] [address] [place] [address] Dr. Megan Caballero BAND % 0 % Normal 0-5 [facility] Comment on above: Performed By: #### LACT #### [facility] [address] [place] [address] Dr. Megan Caballero BASOM # 0.00 103/ul Normal 0.00-0.10 [facility] Comment on above: Performed By: #### LACT #### [facility] [address] [place] [address] Dr. Megan Caballero BASOM % 0.0 % Critically low 0.2-2.0 [facility] Comment on above: Performed By: #### LACT #### [facility] [address] [place] [address] Dr. Megan Caballero BLAST # Normal [facility] Comment on above: Performed By: #### LACT #### [facility] [address] [place] [address] Dr. Megan Caballero BLAST % Normal [facility] Comment on above: Performed By: #### LACT #### [facility] [address] [place] [address] Dr. Megan Caballero CORRECTED WBC Normal 4.0-11.0 [facility] Comment on above: Performed By: #### LACT #### [facility] [address] [place] [address] Dr. Megan Caballero EOS # 0.00 103/ul Normal 0.00-0.70 [facility] Comment on above: Performed By: #### LACT #### [facility] [address] [place] [address] Dr. Megan Caballero EOS% 0.0 % Critically low 0.9-7.0 [facility] Comment on above: Performed By: #### LACT #### [facility] [address] [place] [address] Dr. Megan Caballero HCT 37.2 % Normal 36.0-48.0 [facility] Comment on above: Performed By: #### LACT #### [facility] [address] [place] [address] Dr. Megan Caballero HGB 12.2 g/dl Normal 12.0-16.0 [facility] Comment on above: Performed By: #### LACT #### [facility] [address] [place] [address] Dr. Megan Caballero LYMPHM # 0.23 103/ul Critically low 1.20-3.80 [facility] Comment on above: Performed By: #### LACT #### [facility] [address] [place] [address] Dr. Megan Caballero LYMPHM% 2.0 % Critically low 20.5-60.0 [facility] Comment on above: Performed By: #### LACT #### [facility] [address] [place] [address] Dr. Megan Caballero MCH 28.6 pg Normal 26.7-34.0 [facility] Comment on above: Performed By: #### LACT #### [facility] [address] [place] [address] Dr. Megan Caballero MCHC 32.8 g/dl Normal 29.9-35.2 [facility] Comment on above: Performed By: #### LACT #### [facility] [address] [place] [address] Dr. Megan Caballero MCV 87.1 fL Normal 81.0-99.0 [facility] Comment on above: Performed By: #### LACT #### [facility] [address] [place] [address] Dr. Megan Caballero METAMYELOCYTE # Normal [facility] Comment on above: Performed By: #### LACT #### [facility] [address] [place] [address] Dr. Megan Caballero METAMYELOCYTE % Normal [facility] Comment on above: Performed By: #### LACT #### [facility] [address] [place] [address] Dr. Megan Caballero MONOM# 0.23 103/ul Critically low 0.30-0.80 [facility] Comment on above: Performed By: #### LACT #### [facility] [address] [place] [address] Dr. Megan Caballero MONOM% 2.0 % Normal 1.7-12.0 [facility] Comment on above: Performed By: #### LACT #### [facility] [address] [place] [address] Dr. Megan Caballero MPV 9.5 fL Normal 9.5-13.5 [facility] Comment on above: Performed By: #### LACT #### [facility] [address] [address] [address] Megan Caballero MYELOCYTE # Normal [facility] Comment on above: Performed By: #### LACT #### [facility] [address] [address] [address] Megan Caballero MYELOCYTE % Normal [facility] Comment on above: Performed By: #### LACT #### [facility] [address] [address] [address] Megan Caballero NRBC Normal [facility] Comment on above: Performed By: #### LACT #### [facility] [address] [address] [address] Megan Caballero PLT 197 103/ul Normal 150-450 [facility] Comment on above: Performed By: #### LACT #### [facility] [address] [place] [address] Dr. Megan Caballero RBC 4.27 106/ul Normal 4.20-5.40 [facility] Comment on above: Performed By: #### LACT #### [facility] [address] [place] [address] Dr. Megan Caballero RDW 13.1 % Normal 11.0-15.0 [facility] Comment on above: Performed By: #### LACT #### [facility] [address] [place] [address] Dr. Megan Caballero SEG # 10.85 103/ul Critically high 1.40-6.50 [facility] Comment on above: Performed By: #### LACT #### [facility] [address] [place] [address] Dr. Megan Caballero SEG % 96.0 % Critically high 43.0-75.0 [facility] Comment on above: Performed By: #### LACT #### [facility] [address] [place] [address] Dr. Megan Caballero WBC 11.3 103/ul Critically high 4.0-11.0 [facility] Comment on above: Performed By: #### LACT #### [facility] [address] [place] [address] Dr. Megan Caballero CRPon 05-24-2022 CRP 1.7 mg/dL Critically high <=1.0 [facility] Comment on above: Performed By: #### LACT #### [facility] [address] [place] [address] [address] PELVIS WO CONon [...] of iterative reconstruction technique. FINDINGS: The initial pegger dobby looms views demonstrate bilateral total hip prostheses. The [...] JELANI MAR Date: 2022-05-24 21:51 Normal [facility] PROF CHEM 8 (BAS METB)on Anion gap [Moles/Vol] 12.6 mmol/L Normal [facility] Comment on above: Performed By: #### LACT #### [facility] [address] [place] [address] Dr. Megan Caballero Calcium [Mass/Vol] 8.6 mg/dL Normal 8.5-10.1 [facility] Comment on above: Performed By: #### LACT #### [facility] [address] [place] [address] Dr. Megan Caballero Chloride [Moles/Vol] 102 mmol/L Normal 98-107 [facility] Comment on above: Performed By: #### LACT #### [facility] [address] [place] [address] Dr. Megan Caballero CO2 [Moles/Vol] 28.6 mmol/L Normal 21.0-32.0 [facility] Comment on above: Performed By: #### LACT #### [facility] [address] [place] [address] Dr. Megan Caballero Creatinine [Mass/Vol] 0.73 mg/dL Normal 0.55-1.02 [facility] Comment on above: Performed By: #### LACT #### [facility] [address] [place] [address] Dr. Megan Caballero EGFR-AF JORDANIAN >60 Normal >=60 [facility] Comment on above: Performed By: #### LACT #### [facility] [address] [place] [address] Dr. Megan Caballero EGFR-NON AF JORDANIAN >60 Normal >=60 [facility] Comment on above: Performed By: #### LACT #### [facility] [address] [place] [address] Dr. Megan Caballero Glucose [Mass/Vol] 121 mg/dL Critically high 74-106 [facility] Comment on above: Performed By: #### LACT #### [facility] [address] [place] [address] Dr. Megan Caballero Potassium [Moles/Vol] 3.2 mmol/L Critically low 3.5-5.1 [facility] Comment on above: Performed By: #### LACT #### [facility] [address] [place] [address] Dr. Megan Caballero Sodium [Moles/Vol] 140 mmol/L Normal 136-145 [facility] Comment on above: Performed By: #### LACT #### [facility] [address] [place] [address] Dr. Megan Caballero Urea nitrogen [Mass/Vol] 15.0 mg/dL Normal 7.0-18.0 [facility] Comment on above: Performed By: #### LACT #### [facility] [address] [address] [address] Megan Caballero Urea nitrogen/Creatin ine [Mass ratio] 20.5 mg/mg Normal [facility] Comment on above: Performed By: #### LACT #### [facility] [address] [address] [address] Megan Caballero [facility] 54 mm/hr Critically high <=30 [facility] Comment on above: Performed By: #### SEDR #### [facility] [address] [address] [address] Megan Caballero CNOVon 05-30-2020 CNOV Office Visit (UROLAV ) ANGELIKA MUIR ([id number]) 1940 [place] Date Time Provider Department 05/30/20 6:00 PM NEGRO POMPA During your visit today, we recorded the following information about you: Pulse Blood pressure Weight 101/minute 141/67 98.4 kg Negro Pompa MD 05/30/2020 6:55 PM Signed [facility] [...] Via bladder scan. Referring Provider: NEGRO POMPA [[id number]] Allergies As of Date: 05/30/2020 Noted Allergy [...] [Z85.3] 01/10/2014 Visit Notes: >> Kellclementina Arauz [facility] May 30, 2020 6:31 PM Status: Signed PVR = 71 ml Via bladder scan. Medications Discontinued During This Encounter Prescriptions - solifenacin 10 mg tablet (Discontinued) Take 5 mg by mouth once daily. Encounter Status:Closed by NEGRO POMPA MD on 05/30/20 Normal [facility] CNCOon 05-28-2020 CNCO Letter Text Normal [facility] ANES POSTPROC EVALon 021 ANES POSTPROC EVAL HNO ID: [id number] Author: Ihsan Gamino Service: Anesthesiology Author Type: Anesthesiologist Type: Anesthesia Postprocedure Evaluation Filed: 05/01/2020 4:49 PM Note Text: POST ANESTHESIA EVALUATION NOTE : 1940 Procedure Summary Date: 05/01/20 Room / Location: [address] / [facility] Anesthesia Start: 1504 Anesthesia Stop: [...] May 01, 2020 TIME: 4:49 PM CSN: [id number] [facility] ANES PRE-OPon 05-01-2020 ANES PRE-OP HNO ID: [id number] Author: Ihsan Gamino Service: Anesthesiology Author Type: [...] May 01, 2020 TIME: 3:53 PM CSN: [id number] [facility] HISTORY PHYSICALon HISTORY PHYSICAL HNO ID: [id number] Author: Negro Pompa Service: Urology Author Type: [...] Pompa MD May 01, 2020 1:22 PM [facility] OPERATIVE NOon 05-01-2020 OPERATIVE NO HNO ID: [id number] Author: Negro Pompa Service: Urology Author Type: Physician Type: Operative Report Filed: 05/01/2020 5:00 PM Note Text: OPERATIVE/PROCEDURE REPORT LOG ID: [id number] SURGERY/PROCEDURE DATE: 05/01/2020 INCISION/PROCEDURE START TIME: 3:28 PM INCISION CLOSE/PROCEDURE END TIME: 4:05 PM SURGEON(S)/PROCEDURALIST(S) AND HAND DRAWER IN HELPER(S): Surgeon(s) and Role: * Negro Pompa - [...] 2020 TIME: 4:45 PM PAGER/CONTACT #: Normal [facility] SURGICAL PATHOLOGYon 021 SURGICAL PATHOLOGY Specimen originated from [facility] Specimen #: [id number] Submitting Physician: NEGRO POMPA FINAL DIAGNOSIS Vaginal [...] cassette. DOUG/evens 05/02/2020 Gross examination performed at [facility], [address] [address] Date of Report: 05/06/2020 Date of Procedure: 05/01/2020 Date of Receipt: 05/02/2020 Submitted by: NEGRO POMPA Location: [facility] Diagnostic interpretation performed at [facility], [address] [place] [address]. [place] Number: [id number] [facility] HOSPon 04-19-2020 HOSP Patient:Nany Muir MRN: [...] notes entered within the past 30 days [facility] Provider Letteron 11-21-2019 Provider Letter (Inserted Image. Patricia ble to display) November 21, 2019 ANGELIKA MUIR [address] [place] [id number] ANGELIKA MUIR 1940 Dear Angelika, You missed [...] understanding. Sincerely, [facility]/Dr De La Cruz Normal [facility] Ambulatory Clinical Summaryo n 10-27-2019 Ambulatory Clinical Summary {[id number] [facility] Patient Educationon 10-24-19 Patient Education Family [...] bladder worse. Your healthcare provider or a vice president business development can explain ways to change what you [...] Document Reviewed: 01/02/2010 ExitCare? Patient Information ?2013 [employer] Mireya [facility] Urology Office/Clinic Noteon 10-24-2019 Urology [...] in 1 month. Ordered: PVR urine/bladder capacity/US 00250 Urnls Dip Stick Auto w/o Microscopy POC 91044 2. 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 De La Cruz Follow-up With When Contact Information Bandar De La Cruz Jr., MD In 1 month [facility] [address], [place] [address]- Additional Instructions: w/ PVR Patient Education Overactive [...] Protein Urine Dipstick: Negative (10/24/19 14:03:00) Specific [place] Urine Dipstick: 1.025 (10/24/19 14:03:00) Urine Appearance Urine Dipstick: Clear (10/24/19 14:03:00) Urine Color Urine Dipstick: Yellow (10/24/19 14:03:00) Urobilinogen Urine Dipstick: Normal 0.2-1 EU/dl (10/24/19 14:03:00) pH Urine Dipstick: 5.5 (10/24/19 14:03:00) Diagnostic Results PVR was reviewed at 85 cc. Urinalysis shows no infection. Normal [facility] Comment on above: Result Comment: Electronically Signed By : Jono Faust MD, Bandar Devine\.br\Date and Time Signed: 10/24/19 14:59 EDT\.br\Electronically Co-Signed By: Lida Ybarra MA\.br\Date and Time Co-Signed: 10/24/19 14:56 EDT Ambulatory Clinical Summaryo n 08-24-2019 Ambulatory Clinical Summary {[id number]}CD:[id number] Normal [facility] Reminderson 04-24-2019 Reminders - From: Kristen Rivero To: EU - Clinical; Sent: 04/04/2019 15:20:13 EST Show up: 04/24/2019 07:00:00 EST Subject: Urodynamics Report Due Date/Time: 04/24/2019 07:00:00 EST Reminder/Recall Show Dr. De La Cruz results, patient may need scheduled for Cysto/TVT sling Test: Urodynamics Test being done 04/20/19 @ [facility] From: Fili Morgan MA ( - Clinical) To: Jono Faust MD, Bandar Devine; Sent: 04/24/2019 08:02:48 EST Show up: 04/24/2019 08:02:00 EST Subject: RE: Urodynamics Report Please review Urodynamics report. Per message, Pt may need scheduled for Cysto/ TVT Normal [facility] Coding Summary.on 04-21-2019 Coding Summary. CODING DATE: [address] [facility] STATUS: Home (Routine DC) PAYOR: [...] Garces Date Saved: 04/21/2019 01:56 pm Normal [facility] Patient Summaryon 02-02-2019 Patient Summary PATIENT DISCHARGE IN STRUCTIONS If you are having an emergency and are not able to reach your physician, CALL 911 or go to the nearest emergency room and take this document with you. [facility] 02/02/19 09:32 [address] [place] [address] PATIENT INFORMATION Name: ANGELIKA MUIR Address: [address] [place] [id number] Age: 78 Years Phone: [phone] : 1940 12:00 MRN: [facility][id number] Sex: Female Race: White Ethnicity: Not Hispan/Lat Admitted From: Clinic or [facility] Medical Service: Orthopedic Surgery Nurse Unit/Bed: (CO) 2NAKI 0219-01 Admit Date: 01/30/2019 05:59 PCP: Eduardo Sharma MD PHYSICIANS INVOLVED WITH CARE Attending Physicians: Rancho SIEGEL , Amrik Sutton - Orthopaedic Surg Admitting Physician: Rancho SIEGEL , Amrik Sutton - Orthopaedic Surg Primary Care Physician:Edith SIEGEL , Eduardo Hedrick,Internal Medicine, - Consults: Elbert Gleason MD - Internal Medicine RAMÍREZ Rod - Internal Medicine FOLLOW-UP APPOINTMENTS: Provider: Specialty: Address: Date: Amrik Vickers MD Orthopaedic Surg [address] [facility] [address] (1) Six Weeks Comment: Call for an Appointment Provider: Specialty: Address: Date: Eduardo Sharma MD Internal Medicine [address] [place] [phone] (1) Follow-up as needed Provider: Specialty: Address: Date: [facility]: [facility] [phone] Follow-up as needed ALLERGIES: No Known Medication [...] doses are changed, or new medications (including grzh-cef-lytitjr products) are added. Ask your doctor if [...] Decisions Type: Living Will, Medical Power of Supervisor Final Copy of Advance Directive/Health Care Decisions on Chart: Patient/Family asked to provide copy SUICIDE HOTLINE: Your mental and emotional well-being are important. If you are in a mental health crisis, or having thoughts of suicide, please call the nationwide suicide hotline, anytime day or night, at 5-370-093-BJED. Important information about accessing your health information through the [facility] patient portal If you initiated the self-registration process for [employer] during your stay, please check your personal email for an invitation to enroll in [employer] and complete the steps outlined in the email. If you would prefer to enroll while in the hospital, ask a member of your care team. We would be happy to assist you. If you have already enrolled in [employer], go to [email or web address] to login and access your health information. Thank you for choosing [employer]. PATIENT EDUCATION Fall Prevention in the Home [...] wet floors. ???Place frequently used items in jnyn-sw-wvjal places. ???If you need to reach for something above you, use a sturdy step stool that has a grab bar. ???Keep electrical cables out of the way. ???Do not use floor indian or wax that makes floors slippery. If [...] include working with a physical therapist or color strainer to improve your strength, balance, and endurance. This information is not intended to replace advice given to you by your health care provider. Make sure you discuss any questions you have with your health care provider. Document Released: 02/26/2003 Document Revised: 07/23/2015 Document Reviewed: 04/12/2015 [employer] Patient Education ?2016 [employer] Incentive Spirometer An incentive spirometer is [...] 07/19/2007 Document Revised: 03/29/2015 Document Reviewed: 10/15/2014 [employer] Patient Education ?2016 [employer] Pain Medicine Instructions HOW CAN PAIN [...] liver damage. Acetaminophen is found in many vtyn-vie-ylblnuk (OTC) and prescription medicines. If you are [...] 06/14/2001 Document Revised: 07/23/2015 Document Reviewed: 01/10/2015 [employer] Patient Education ?2016 [employer]. Preventing Constipation After Surgery Constipation is when [...] a bowel movement. ???Having hard, dry, or jzdfiv-xdqh-rngttz stools. ???Feeling full or bloated. ???Having pain in the lower abdomen. ???Not feeling relief after having a bowel movement. HOME CARE INSTRUCTIONS Diet ???Eat foods that have a lot of fiber. These include fruits, vegetables, whole grains, and beans. Limit foods high in fat and processed sugars. These include setswana fries, hamburgers, cookies, and candy. ???Take a [...] softener, laxative, or fiber supplement. ???Only take hjel-gip-mtabfod or prescription medicines as directed by your [...] 07/03/2013 Document Revised: 03/29/2015 Document Reviewed: 07/03/2013 [employer] Patient Education ?2016 [employer] Venous Thromboembolism, Prevention A venous thromboembolism [...] 02/24/2010 Document Revised: 11/30/2012 Document Reviewed: 07/03/2015 [employer] Patient Education ?2016 [employer] VIRUSES OR BACTERIA: WHAT'S GOT YOU [...] Relationship to Patient Clinician Signature Date/Time Normal [facility] Basic Metabolic Panelon 01-20 Calcium [Mass/Vol] 8.4 mg/dL Low 8.5-10.6 [facility] Chloride [Moles/Vol] 105 mmol/L Normal 98-107 [facility] CO2 [Moles/Vol] 32 mmol/L Normal 21-32 [facility] Creatinine [Mass/Vol] 0.77 mg/dL Normal 0.55-1.02 [facility] Glucose [Mass/Vol] 108 mg/dL High 70-99 [facility] Potassium [Moles/Vol] 4.1 mmol/L Normal 3.5-5.1 [facility] Sodium [Moles/Vol] 141 mmol/L Normal 136-145 [facility] Urea nitrogen (BldV) [Mass/Vol] 20 mg/dL High 7.0-18.0 [facility] Urea nitrogen/Creatin ine [Mass ratio] 26 mg/mg Normal [facility] Basic Metabolic Panelon 01-20 Calcium [Mass/Vol] 8.4 mg/dL Low 8.5-10.6 [facility] Chloride [Moles/Vol] 105 mmol/L Normal 98-107 [facility] CO2 [Moles/Vol] 31 mmol/L Normal 21-32 [facility] Creatinine [Mass/Vol] 0.86 mg/dL Normal 0.55-1.02 [facility] Glucose [Mass/Vol] 101 mg/dL High 70-99 [facility] Potassium [Moles/Vol] 4.1 mmol/L Normal 3.5-5.1 [facility] Sodium [Moles/Vol] 140 mmol/L Normal 136-145 [facility] Urea nitrogen (BldV) [Mass/Vol] 21 mg/dL High 7.0-18.0 [facility] Urea nitrogen/Creatin ine [Mass ratio] 24 mg/mg Normal [facility] Anesthesia Recordon 01-31-20 Anesthesia Record Patient: ANGELIKA MUIR MRN: [id number] Age: 78 years Sex: Female : 1940 Associated Diagnoses: None Author: Nadine Barrera MD Procedure Time Out [place] Protocol: patient identity verified, site verified, side verified, procedure to be done verified, patient position verified. REGIONAL ANESTHESIA PROCEDURE Procedure date and begin time: See nurses notes. Procedure date and end time: See nurses notes. Performed by: Nadine Barrera MD. Assisted by: no assistant technician. Informed consent: signed by patient. Technique: Peripheral [...] Diagnosis: M25.561 M17.[address] [facility] Anesthesia Record Patient: ANGELIKA MUIR MRN: ([id number] Age: 78 years Sex: Female : 1940 Associated Diagnoses: None Author: Nadine Barrera MD Procedure Time Out [place] Protocol: patient identity verified, site verified, side verified, procedure to be done verified, patient position verified. REGIONAL ANESTHESIA PROCEDURE Procedure date and begin time: See nurses notes. Procedure date and end time: See nurses notes. Performed by: Nadine Barrera MD. Assisted by: no assistant technician. Informed consent: signed by patient. Technique: Peripheral [...] M25.561 M17.11 Knee Pain OA . Normal [facility] Basic Metabolic Panelon 11-1 1-2019 Calcium [Mass/Vol] 9.0 mg/dL Normal 8.5-10.6 [facility] Chloride [Moles/Vol] 106 mmol/L Normal 98-107 [facility] CO2 [Moles/Vol] 29 mmol/L Normal 21-32 [facility] Creatinine [Mass/Vol] 0.84 mg/dL Normal 0.55-1.02 [facility] Glucose [Mass/Vol] 105 mg/dL High 70-99 [facility] Potassium [Moles/Vol] 3.7 mmol/L Normal 3.5-5.1 [facility] Sodium [Moles/Vol] 143 mmol/L Normal 136-145 [facility] Urea nitrogen (BldV) [Mass/Vol] 23 mg/dL High 7.0-18.0 [facility] Urea nitrogen/Creatin ine [Mass ratio] 27 mg/mg Normal [facility] OR Nursingon 01-30-[address] [facility] PACU I Nursingon 01-30-2019 PACU I Nursing CO NA PACU I Nursing Record Summary Primary Physician: Amrik Vickers MD Finalized Date/Time: 01/30/19 12:48:37 Pt. Name: JOSEANGELIKA/Sex: 1940 Female Med Rec #: [id number] Physician: Amrik Vickers MD Financial #: [id number] Pt. Type: I Room/Bed: [address] [place] [address] Admit/Disch: 01/30/19 05:59:00 - Institution: CO NA OR Main PACU I Case Times Entry 1 In PACU I 01/30/19 10:05:00 Ready for PACU I 01/30/19 12:04:00 Discharge Discharge from PACU 01/30/19 12:04:00 PACU I Discharge NA I Delay Reason Last Modified By: Ana Rosas RN 01/30/19 12:48:23 CO NA OR Main PACU I Case Attendees Entry 1 Case Attendee Wiliam Chappell RN Role Performed RN Last Modified By: Ana Rosas RN 01/30/19 12:48:35 Finalized By: Ana Rosas RN Document Signatures Signed By: Ana Rosas RN 01/30/19 12:[address] [facility] PreOp Nursingon 01-30-2019 PreOp Nursing CO NA PreOp Nursing Record Summary Primary Physician: Amrik Vickers MD Finalized Date/Time: 01/30/19 09:02:48 Pt. Name: TRAN MUIRAPOLA Nayak/Sex: 1940 Female Med Rec #: [id number] Physician: Amrik Vickers MD Financial #: [id number] Pt. Type: I Room/Bed: / Admit/Disch: 01/30/19 [...] By: Chelsy Batista RN 01/30/19 09:[address] [facility] Basic Metabolic Panelon 10-3 Calcium [Mass/Vol] 9.0 mg/dL Normal 8.5-10.6 [facility] Chloride [Moles/Vol] 103 mmol/L Normal 98-107 [facility] CO2 [Moles/Vol] 31 mmol/L Normal 21-32 [facility] Creatinine [Mass/Vol] 0.78 mg/dL Normal 0.55-1.02 [facility] Glucose [Mass/Vol] 90 mg/dL Normal 70-99 [facility] Potassium [Moles/Vol] 4.1 mmol/L Normal 3.5-5.1 [facility] Sodium [Moles/Vol] 142 mmol/L Normal 136-145 [facility] Urea nitrogen (BldV) [Mass/Vol] 19 mg/dL High 7.0-18.0 [facility] Urea nitrogen/Creatin ine [Mass ratio] 24 mg/mg Normal [facility] CBC with Differentialon 10-3 Basophils (Bld) [#/Vol] 0.0 thou/mcL Normal 0.0-0.2 [facility] Basophils/100 WBC (Bld) 0.8 % Normal 0-3 [facility] Differential cell count method Nom (Bld) AUTOMATED DIFFERENTIAL Normal [facility] Eosinophils (Bld) [#/Vol] 0.1 thou/mcL Normal 0.0-0.4 [facility] Eosinophils/100 WBC (Bld) 2.0 % Normal 0-7 [facility] Erythrocyte distribution width (RBC) [Entitic vol] 14.4 % Normal 11.7-15.0 [facility] Hematocrit (Bld) [Volume fraction] 36.7 % Normal 34.0-50.0 [facility] Hemoglobin (Bld) [Mass/Vol] 12.1 g/dL Normal 11.5-17.0 [facility] Lymphocytes (Bld) [#/Vol] 1.3 thou/mcL Normal 0.7-4.5 [facility] Lymphocytes/100 WBC (Bld) 26.0 % Normal 14-46 [facility] MCH (RBC) [Entitic mass] 29.2 Picograms Normal 27.0-34.0 [facility] MCHC (RBC) [Mass/Vol] 32.9 g/dL Normal 32.0-36.0 [facility] MCV (RBC) [Entitic vol] 88.7 fL Normal 80-98 [facility] Monocytes (Bld) [#/Vol] 0.4 thou/mcL Normal 0.1-1.0 [facility] Monocytes/100 WBC (Bld) 8.5 % Normal 4-13 [facility] Neutrophils (Bld) [#/Vol] 3.1 thou/mcL Normal 1.5-7.8 [facility] Neutrophils/100 WBC (Bld) 62.7 % Normal 40-74 [facility] Platelet mean volume (Bld) [Entitic vol] 8.4 fL Normal 7.5-11.2 [facility] Platelets (Bld) [#/Vol] 214 thou/mcL Normal 140-415 [facility] RBC (Bld) [#/Vol] 4.13 x(10)6/mcL Normal 3.80-5.60 [facility] WBC (Bld) [#/Vol] 5.0 thou/mcL Normal 4.0-10.5 [facility] Culture Methicillin Resistan t Staph aureuson 01-19-2019 MRSA isol Org specific cx Ql (Unsp spec) [facility] Microbiology PROCEDURE: Culture Methicillin Resistant Staph aureus SOURCE: Nasal Swab BODY SITE: COLLECTED DATE/TIME: 01/19/2019 15:10 EDT RECEIVED DATE/TIME: 01/19/2019 15:10 EDT START DATE/TIME: 01/19/2019 15:10 EDT FREE TEXT SOURCE: NASAL SWAB-. INTERFACED REPORTS Final Report [] Verified Date/Time/Personnel: 01/20/2019 21:24 EDT CONTRIBUTOR_SYSTEM, CO_PN *MRSA SCREEN* NEGATIVE FOR METHICILLIN(OXACILLIN) RESISTANT STAPHYLOCOCCUS AUREUS. Normal [facility] Comment on above: Performed By: #### [id number] #### [place] [id number] [place], [place] Partial Thromboplastin Time (aPTT)on 01-19-2019 aPTT Coag (PPP) [Time] 31 Sec Normal 23.2-34.6 [facility] Prothrombin Timeon 9 INR Coag (Bld) [Relative time] 1.0 {INR} Normal [facility] Comment on above: Result Comment: DURING THE INDUCTION PHA SE OF ORAL ANTICOAGULATION, THE INR MAY NOT REFLECT THE ANTICOAGULANT STATUS OF THE PATIENT. THERAPEUTIC RANGES FOR INR'S ARE: MOST CLINICAL SITUATIONS: INR 2.0-3.0 MECHANICAL PROSTHETIC VALVES: INR 2.5-3.5 CRITICAL: INR 5.0 PT Coag (PPP) [Time] 12.6 Sec Normal 11.9-14.6 [facility] XR C-Spine 4-5 Viewson 01-19 XR C-Spine [...] disease, notably advanced at C5-C6 and C6-C7. [place] thanks you for the opportunity to care for your patient. Workstation ID: [id number] FINAL REPORT Dictated By: Fritz Styles MD 01/19/2019 21:13 Assigned Physician: Fritz Styles MD Reviewed and Electronically Signed By: Fritz Styles MD 01/19/2019 21:17 Transcribed by: JESSIE 01/19/2019 21:13 Technologist: KAYLIN Gomes [facility] Culture Anaerobicon 10-18-20 19 Bacteria identified Anaer cx Nom (Unsp spec) [facility] Microbiology PROCEDURE: Culture Anaerobic SOURCE: Joint Fl [...] EDT CONTRIBUTOR_SYSTEM, CO_PN CULTURE IN PROGRESS Normal [facility] Comment on above: Performed By: #### [id number] #### [place] [id number] [place], [place] Culture Body Fluid + Suscept ibility + Smear Directon 10-18-2018 Bacteria identified Sterile body fluid culture Nom (Unsp spec) [facility] Microbiology PROCEDURE: Culture Body Fluid + Susceptibility [...] NO EPITHELIALS SEEN, NO ORGANISMS SEEN Normal [facility] Comment on above: Performed By: #### [id number] #### [place] [id number] [place], [place] Culture Funguson 10-18-2018 Fungus identified Cx Nom (Unsp spec) [facility] Microbiology PROCEDURE: Culture Fungus SOURCE: Joint Fl [...] WILL BE HELD FOR 1-[address] [facility] Comment on above: Performed By: #### [id number] #### [facility] [address] [place], [place] XR SHOULDER LEFT MIN 2 VIEWS [...] I have reviewed andapproved this report. 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 Isaw her in our [place] office. She has had a complete evaluation [...] 11/06/2016/03:29 P/Ankur France M.D.Date Trans: 11/07/2016 06:05 A/Tyrese_JN:[id number]: Eduardo Sharma M.D. [address] [place] [address] [place] [facility] Vital Signs Date Time Vital Sign Value Performing Clinician Facility 03-24-2021 15:45-0500 Body height 166.37 cm Yolanda Calvo Other [facility] Other 03-24-2021 15:45-0500 Body mass index (BMI) [Ratio] 35.23 kg/m2 [facility] Other [facility] Other 03-24-2021 15:45-0500 Body temperature 99.4 [degF] Yolandagriselda Calvo Other [facility] Other 03-24-2021 15:45-0500 Body weight 97.52 kg Yolanda Schwerer Other [facility] Other 03-24-2021 15:45-0500 Diastolic blood pressure 78 mm[Hg] Yolanda Schwerer Other [facility] Other 03-24-2021 15:45-0500 SaO2% (BldA) [Mass fraction] 96 % Yolanda Schwerer Other [facility] Other 03-24-2021 15:45-0500 Systolic blood pressure 132 mm[Hg] Yolanda Schwerer Other [facility] Other Encounters Encounter Date Encounter Type Care Provider Facility Start: 04-02-2023 End: 04-02-2023 ambulatory [facility] Start: 09-07-2022 End: 09-07-2022 ambulatory Gennaro Cheng Facility:[facility] Start: 05-25-2022 End: 05-26-[address] SARIKA MUHAMMAD . Facility: Start: 07-15-2021 End: 07-15-2021 ambulatory Yolanda Schwerer Other [facility] Other Start: 07-15-2021 Telephone encounter Yolanda Schwerer [facility] [place] Start: 04-28-2021 End: 04-28-2021 ambulatory Yolanda Schwerer Other [facility] Other Start: 04-28-2021 Telephone encounter Yolanda Schwerer [facility] [place] Start: 04-03-2021 End: 04-03-2021 ambulatory Yolanda Schwerer Other [facility] Other Start: 04-03-2021 Telephone encounter Yolanda Schwerer [facility] [place] Start: 03-24-2021 End: 03-24-2021 ambulatory Yolanda Schwerer Other [facility] Other Start: 03-24-2021 Office outpatient vi sit 15 minutes Yolanda Schwerer [facility] Start: 03-20-2021 End: 03-20-2021 ambulatory Yolanda Schwerer Other [facility] Other Start: 03-20-2021 Telephone encounter Yolanda Schwerer [facility] Start: 03-03-2021 End: 03-03-2021 ambulatory Yolanda Schwerer Other [facility] Other Start: 03-03-2021 Telephone encounter Yolanda Schwerer [facility] Start: 07-21-2017 Ambulatory JOSE LUIS LIZAMA [facility] Start: 11-06-2016 End: 11-07-2016 Ambulatory ANKUR FRANCE Facility:[facility] Immunizations Immunization Date Immunization Notes Care Provider Chava lan 07-05-2020 COVID-19 Vaccine Pfi zer - Documentation Purposes Only Yolanda Schwerer Other [facility] Other 06-07-2020 COVID-19 Vaccine Pfi zer - Documentation Purposes Only Yolanda Schwerer Other [facility] Other 04-30-2018 zoster vaccine recombinant Yolanda Schwerer Other [facility] Other 01-06-2018 zoster vaccine recombinant Yolanda Schwerer Other [facility] Other 03-19-2017 pneumococcal conjuga te vaccine, 13 valent Yolanda Schwerer Other [facility] Other 04-27-2016 pneumococcal polysaccharide vaccine, 23 valent Yolanda Schwerer Other [facility] Other 12-18-2014 pneumococcal polysaccharide vaccine, 23 valent Yolanda Schwerer Other [facility] Other 12-18-2014 zoster vaccine, live Yolanda Schwerer Other [facility] Other 02-11-2009 zoster vaccine, live Yolanda Schwerer Other [facility] Other Payers Date Payer Category Payer Self-pay 2003 Medicare [id number] 2003 Medicare [id number] 1959 Medicare [id number] 1959 Unknown [id number] 1940 Unknown [id number] 1940 Unknown [id number] Medicare [id number] 2.1 [id number] Unknown [id number] [id number] Social History Date Type Detail Facility Unknown if ever smoked [facility] Other Sex Assigned At Sex Assigned At Bir th [facility] Other Clinical Note 05-24-2022 Note Date & [...] by: CAMILO ARNOLD Date: 2022-05-24 19:59 [facility] Evaluation note 03-24-2021 Note Date & Type Note Facility 03-24-2021 Evaluation note Encounter Date Diagnosis Assessment Notes Mar, Skin rash (ICD-10 - R21) i think eczema, will do clobetasol she already has this. will continue on lotramin. she will call in a few days if not improved. [facility] Other Progress note 05-30-2020 Note Date & Type Note Facility 05-30-2020 Note HNO ID: [id number] Author: Negro Pompa Service: ? Author Type: Physician Type: Progress Notes Filed: 05/30/2020 6:55 PM Note Text: [facility] [...] and concerns were addressed. Negro Pompa MD [facility] Clinical Note 04-18-2020 Note Date & Type Note Facility 04-18-2020 Note Patient Outreach (CO OCC3) ANGELIKA MUIR ([id number]) 1940 F Date Time Provider Department 04/18/20 PENNY RIBEIRO During your visit today, we recorded the following information about you: Allergies As of Date: 04/18/2020 Noted Allergy Reaction TAPE (ADHESIVE TAPE (ROSINS)) 06/28/2012 2 - Rash Date Reviewed: 01/09/2020 Reviewed by: Niru Cunningham - Fully Assessed Order(s):SARS-COVID VACCINE 1ST DOSE APPT [02005VSR] Order #: [id number] FUTURE Prescriptions as of 04/18/2020 Sig: SERTRALINE [...] Encounter Status:Closed by EPIC, PRODUSER on 04/22/20 [facility] Evaluation note Note Date & Type Note Facility Evaluation note No Information [facility] Other History general Narrative - Reported Note [...] SHOULDER X2 Hospitalization History see surgical hx [facility] Other Summary Purpose Family History No Family [...] Assessments Note Patient: ANGELIKA MUIR MR N: ([id number] Age: 78 years Sex: Female : 1940 Associated Diagnoses: None Author: Elbert Gleason MD Assessment Assessment Diagnosis: Osteoarthritis (GMQ32-YV M17.11, 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 Right TKA. Dr. Vickers. [...] Pain is currently described as intermittent but khurqgtr-ap-lhkeyz, particularly with activity. Symptoms have failed to respond to more conservative measures, and she now presents for surgical intervention. Please see below regarding the status of active medical conditions and assessment and plan for preoperative medical risk stratification. Medical Illnesses: 1. Osteoarthritis affecting (more content not included)... Note CLINICAL SUMMARY Please take this summary document to your follow up appointments. [facility] 02/02/19 09:32 [address] [place]. [address] PATIENT INFORMATION Name: ANGELIKA MUIR Address: [address] [place] [id number] Age: 78 Years Phone: [phone] : 1940 12:00 MRN: [id number] Sex: Female Race: White Ethnicity: Not Hispan/Lat Admitted From: Clinic or [facility] Medical Service: Orthopedic Surgery Nurse Unit/Bed: [...] included)... Note Patient: ANGELIKA MUIR MR N: [id number] [facility]: [id number] Age: 78 years Sex: Female : 1940 [...] (more content not included)... Note HNO ID: [id number] Author: Cheryle Wilcox (Aa) Service: ? Author Type: Wound Care Nurse Type: Anesthesia Procedure Notes Filed: 05/01/2020 3:33 PM Note Text: ANESTHESIOLOGY PROCEDURE NOTE Airway General Information Procedure Start Time/Medication Administration: 05/01/2020 3:28 PM Patient location during procedure: OR Timeout Performed Pre-procedure: timeout performed Consent Obtained: Yes Patient identity confirmed: arm band, care steam table attendant and patient Staffing Anesthesiologist: Ihsan Gamino CAA: Ankur Wilcox (Aa) Indications and Patient Condition Preoxygenated: yes Patient position: sniffing Indications for airway management: anesthesia anesthesia circuit Method: asleep Final Airway Details Final airway type: supraglottic airway Final Supraglottic Airway: IGEL Size 4 Seal Adequate: yes SIGNATURE: AZ Gonzales PATIENT NAME: Angelika Muir DATE: May 01, 2020 TIME: 3:33 PM CSN: [id number] Note HNO ID: [id number] Author: Ariana Gay Service: Urology Author Type: Resident Type: Brief Op Note Filed: 05/01/2020 4:09 PM Note Text: BRIEF OPERATIVE / PROCEDURE NOTE LOG ID: [id number] SURGERY/PROCEDURE DATE: 05/01/2020 INCISION/PROCEDURE START TIME: 3:28 PM INCISION CLOSE/PROCEDURE END TIME: 4:05 PM SURGEON(S)/PROCEDURALIST(S) AND HAND DRAWER IN HELPER(S): Surgeon(s) and Role: * Negro Pompa - [...] 01, 2020 TIME: 4:07 PM PAGER/CONTACT #: [phone] (more content not included)... Hospital Course Note CLINICAL SUMMARY Please take this summary document to your follow up appointments. [facility] 02/02/19 09:32 [address] [place]. [address] PATIENT INFORMATION Name: ANGELIKA MUIR Address: [address] [place] [id number] Age: 78 Years Phone: [phone] : 1940 12:00 MRN: [id number] Sex: Female Race: White Ethnicity: Not Hispan/Lat Admitted From: Clinic or [facility] Medical Service: Orthopedic Surgery Nurse Unit/Bed: (NC) 2N 0219-01 Admit Date: 01/30/2019 05:59 PCP: Eduardo Sharma MD PHYSICIANS INVOLVED WITH CARE Attending Physicians: Rancho SIEGEL , Amrik Sutton - Orthopaedic Surg Admitting Physician: Ranhco SIEGEL , Amrik Sutton - Orthopaedic Surg Primary Care Physician:Eduardo Sharma MD,Internal Medicine, - Consults: Rosibel SIEGEL , Elbert Kim - Internal Medicine RAMÍREZ Rod (more content not included)... Procedure Findings Note HNO ID: [id number] Author: Cheryle Wilcox (Aa) Service: ? Author Type: Wound Care Nurse Type: Anesthesia Procedure Notes Filed: 05/01/2020 3:33 PM Note Text: ANESTHESIOLOGY PROCEDURE NOTE Airway General Information Procedure Start Time/Medication Administration: 05/01/2020 3:28 PM Patient location during procedure: OR Timeout Performed Pre-procedure: timeout performed Consent Obtained: Yes Patient identity confirmed: arm band, care steam table attendant and patient Staffing Anesthesiologist: Ihsan Gamino CAA: Ankur Wilcox (Aa) Indications and Patient Condition Preoxygenated: yes Patient position: sniffing Indications for airway management: anesthesia anesthesia circuit Method: asleep Final Airway Details Final airway type: supraglottic airway Final Supraglottic Airway: IGEL Size 4 Seal Adequate: yes SIGNATURE: AZ Gonzales PATIENT NAME: Angelika Muir DATE: May 01, 2020 TIME: 3:33 PM CSN: [id number] Note HNO ID: [id number] Author: Ariana kaplan (Martina) Victor Hugo Service: Urology Author Type: Resident Type: Brief Op Note Filed: 05/01/2020 4:09 PM Note Text: BRIEF OPERATIVE / PROCEDURE NOTE LOG ID: [id number] SURGERY/PROCEDURE DATE: 05/01/2020 INCISION/PROCEDURE START TIME: 3:28 PM INCISION CLOSE/PROCEDURE END TIME: 4:05 PM SURGEON(S)/PROCEDURALIST(S) AND HAND DRAWER IN HELPER(S): Surgeon(s) and Role: * Negro Pompa - [...] 01, 2020 TIME: 4:07 PM PAGER/CONTACT #: [phone] (more content not included)... Note Patient: ANGELIKA MUIR MR N: [id number] Age: 78 years Sex: Female : 1940 [...] section and content) DATE CREATED AUTHOR 09/09/2017 [facility] DATE CREATED AUTHOR AUTHOR'S ORGANIZ ATION 09/15/2017 [facility] DATE CREATED AUTHOR AUTHOR'S ORGANIZ ATION 02/06/2019 [facility] DATE CREATED AUTHOR AUTHOR'S ORGANIZ ATION 11/22/2019 [facility] DATE CREATED AUTHOR AUTHOR'S ORGANIZ ATION 05/08/2020 [facility] DATE CREATED AUTHOR AUTHOR'S ORGANIZ ATION 04/05/2021 [facility] DATE CREATED AUTHOR AUTHOR'S ORGANIZ ATION 05/31/2022 [facility] DATE CREATED AUTHOR AUTHOR'S ORGANIZ ATION 09/21/2022 [facility] DATE CREATED AUTHOR AUTHOR'S ORGANIZ ATION [...] BE BASED ON THE PRIMARY CLINICAL RECORDS. [employer] [facility]. provides no warranty or guarantee of the accuracy or completeness of information in this document.
--- NOTE | 2023-04-22 11:54 | XR_ITS ---
The [place] [id number] Patient Name: AMISHA GARCIA MRN: [id number] date: 1940 Sex: F Assigned Patient Location: [facility] Current Patient Location: [facility] Accession/Order Number: [id number] Exam Date: 04/22/2023 12:01 Report Date: 04/22/2023 12:40 At the request of: ANDRI GIEDRAITIS Procedure: XR lumbar spine 6V w bending EXAMINATION: XR sacrum coccyx min 2V, XR lumbar spine 6V w bending HISTORY: Lumbago, Right Hip Pain COMPARISON: No relevant comparison available. FINDINGS: BONES: Moderate right convex curvature of lumbar spine. Mild grade 1 anterior listhesis of L4 on 5; no appreciable change during flexion and extension. Moderate degenerative facet arthropathy L3-4 through L5-S1. DISC SPACES: Moderate narrowing along left side of L2-3 and L3-4. Moderate narrowing of L4-5. Marked narrowing L5-S1 with moderate marked foramen narrowing.. PARASPINOUS: Negative. No paraspinous abnormality is seen. SACRUM: No fracture, disruption of the sacral ala line, or cortical irregularity. COCCYX: No fracture or suspicious alignment. SOFT TISSUES: No widening of the sacroiliac joints. No radiopaque foreign body. OTHER: Bilateral hip replacements. XR/XR lumbar spine 6V w bending IMPRESSION: 1. Marked degenerative changes of lumbar spine likely contributing to patient's symptoms. 2. Unremarkable sacrum and coccyx. Electronically authenticated by: IHSAN PEDROZA Date: 04/22/2023 12:40
--- NOTE | 2023-04-22 11:54 | XR_ITS ---
The [address] [address] Patient Name: AMISHA GARCIA MRN: [id number] date: 1940 Sex: F Assigned Patient Location: [facility] Current Patient Location: [facility] Accession/Order Number: [id number] Exam Date: 04/22/2023 12:01 Report Date: 04/22/2023 12:43 At the request of: ANDRIUS GIEDRAITIS Procedure: XR hip RT min 2V PROCEDURE: XR hip RT min 2V HISTORY: Lumbago, Right Hip Pain COMPARISON: None. FINDINGS: BONES:Right hip replacement without evidence of hardware fracture loosening. No bone fracture dislocation. Heterotopic bone formation within soft tissues; sequela of prior surgery versus trauma. SOFT TISSUES:No visible soft tissue swelling. EFFUSION:None visible. OTHER: Negative. XR/XR hip RT min 2V IMPRESSION: 1. Right hip replacement without evidence of hardware failure. 2. No acute or suspicious findings. Electronically authenticated by: IHSAN PEDROZA Date: 04/22/2023 12:43
--- NOTE | 2023-04-22 11:54 | XR_ITS ---
The [address] [address] Patient Name: AMISHA GARCIA MRN: [id number] date: 1940 Sex: F Assigned Patient Location: [facility] Current Patient Location: [facility] Accession/Order Number: [id number] Exam Date: 04/22/2023 12:01 Report Date: 04/22/2023 12:40 At the request of: ANDRI GIEDRAITIS Procedure: XR sacrum coccyx min 2V EXAMINATION: XR sacrum coccyx min 2V, XR lumbar spine 6V w bending HISTORY: Lumbago, Right Hip Pain COMPARISON: No relevant comparison available. FINDINGS: BONES: Moderate right convex curvature of lumbar spine. Mild grade 1 anterior listhesis of L4 on 5; no appreciable change during flexion and extension. Moderate degenerative facet arthropathy L3-4 through L5-S1. DISC SPACES: Moderate narrowing along left side of L2-3 and L3-4. Moderate narrowing of L4-5. Marked narrowing L5-S1 with moderate marked foramen narrowing.. PARASPINOUS: Negative. No paraspinous abnormality is seen. SACRUM: No fracture, disruption of the sacral ala line, or cortical irregularity. COCCYX: No fracture or suspicious alignment. SOFT TISSUES: No widening of the sacroiliac joints. No radiopaque foreign body. OTHER: Bilateral hip replacements. XR/XR sacrum coccyx min 2V IMPRESSION: 1. Marked degenerative changes of lumbar spine likely contributing to patient's symptoms. 2. Unremarkable sacrum and coccyx. Electronically authenticated by: IHSAN PEDROZA Date: 04/22/2023 12:40
== END 2023-04-22 11:44 | disposition home or self-care (01) ==
LOC: RAD 11:46
PROVIDERS: PCP Family Medicine; Visit Provider Anesthesiology
DX: M54.50 Low back pain, unspecified (principal); M25.551 Pain in right hip; Z96.643 Presence of artificial hip joint, bilateral
CPT/HCPCS: 72114; 72220; 73502

== ENCOUNTER 2023-05-10 12:36 | Outpatient (OUT) | payer MEDICARE, OTHER, SELFPAY ==
--- OUTSIDE RECORDS SUMMARY | 2023-05-10 12:55 | XMS_ITS | CCD ---
Author Name Unknown Address [address] [facility] [address] [place] [address] Organization [facility] Care Team Providers Care Priming Powder Premix Blender Name Role Phone JOSE LUIS LIZAMA Unavailable Unavailable SELF, SELF Unavailable Unavailable EDUARDO SHARMA Unavailable Unavailable LIZAMA, JOSE LUIS Y Unavailable Unavailable LIZAMA, JOSE LUIS Y Unavailable Unavailable EDUARDO SHARMA Unavailable Unavailable ANKUR FRANCE Unavailable Unavailable ANKUR FRANCE Unavailable Unavailable SHARMAEDUARDO ARMANDO Unavailable Unavailable SHARMAEDUARDO ARMANDO Unavailable Unavailable Schwerer, Yolanda Unavailable SABINA ., DR SARIKA Osullivan Attending Unavailable MUHAMMAD ., DR SARIKA Osullivan Admitting Unavailable MUHAMMAD ., DR SARIKA Osullivan Consulting Unavailable [facility], DR GARVEY Primary Care Unavailable MISC, DR GARVEY Consulting Unavailable KASIA, DR IHSAN Lane Consulting Unavailable ESTELA CHUN Consulting Unavailable JORY MCMILLAN Consulting Unavailable CAMILO ARNOLD Consulting Unavailable JELANI MAR Consulting Unavailable ALVINO BENITEZ Consulting Unavailable DARMARIA ELENA BURROUGHS Consulting Unavailable SISTER, WALI Consulting Unavailable Gennaro Cheng Attending Unavailable Gennaro Cheng Admitting Unavailable Schwerer, Yolanda E Primary Care Unavailable CESIA CHAHAL Attending Unavailable FRANKI CHAVES Referring Unavailable FRANKI CHAVES Primary Care Unavailable Chelsie SIEGEL, Tony Rodríguez Attending Unavailable Allergies Allergy Classification Reported Allergen(s) Allergy Type Date of Onset Reaction(s) Facility (1 source) 94961,00; Translations: [09733,00] Propensity to adverse reactions (disorder) 9 [facility] (1 source) Adhesive agent; Translations: [ADHESIVE] [...] disease (1 source) Atherosclerotic heart disease of [place] coronary artery without angina pectoris; Translations: [ATHSCL HEART DISEASE OF [place] CORONARY ARTERY W/O ANG PCTRS] Onset: 11-06-2016 Chronic Essential hypertension (6 sources) Essential hypertension; Translations: [Essential (primary) hypertension] Chronic Mood disorders (6 sources) Mood disorder; Translations: [Unspecified mood [affective] disorder] Chronic Osteoarthritis (13 sources) Osteoarthritis of right knee joint; Translations: [Unilateral primary osteoarthritis, right knee] Onset: 04-02-2023 Chronic Other aftercare (1 source) 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 [facility] Comment on above: Result Comment: Negative <1:80 Borderline 1:80 Positive >1:80 Performed By: #### T 4F, TSH3, CRP, CMP, ESR, CBC #### [facility] [address] Homogeneous Pattern 1:160 High . [facility] Comment on above: Result Comment: ICAP nomenclature: AC-1 Performed By: #### T 4F, TSH3, CRP, CMP, ESR, CBC #### [facility] [address] Note [address] Normal [address] [facility] Comment on above: Result Comment: For more information abo ut Hep-2 cell patterns use [employer], the official website for the International Consensus on Antinuclear Antibody (TAO) Patterns (ICAP). A positive TAO result may occur in healthy individuals (low titer) or be associated with a variety of diseases. See interpretation chart which is not all inclusive: Pattern Antigen Detected Suggested Disease Association Homogeneous DNA(ds,ss), SLE - High titers Nucleosomes, Histones Drug-induced SLE Speckled Sm, WIRE FRAME LAMPSHADE MAKER, SCL-70, SLE,MCTD,PSS (diffuse form), SS-A/SS-B Sjogrens Nucleolar SCL-70, PM-1/SCL High titers Scleroderma, PM/DM Centromere Centromere PSS (limited form) w/Crest syndrome variable Nuclear Dot [id number] Primary Biliary Cirrhosis Nuclear GP210, Primary Biliary Cirrhosis Membrane vickey A,B,C Performed at: [address] [id number] [employer] Underwriter: Naldo Valdez PhD, Phone: [phone] PERFORMED BY: [place] [address] PATHOLOGIST RECORDS SUPERVISOR JORGE LUIS RUELAS M.D. Performed By: #### T 4F, TSH3, CRP, CMP, ESR, CBC #### [address] C-Reactive Proteinon 023 C-Reactive Protein 0.8 mg/dL High 0.0-0.[address] [facility] Comment on above: Performed By: #### T4F, TSH3, CRP, CMP, ESR, CBC #### [address] Complete Blood Count Auto Di ffon 09-07-2022 Basophils (Bld) [#/Vol] 0.1 10*3/uL Normal 0.0-0.[address] [facility] Comment on above: Performed By: #### T4F, TSH3, CRP, CMP, ESR, CBC #### [address] Basophils/100 WBC (Bld) 1.0 % Normal . [facility] Comment on above: Performed By: #### T4F, TSH3, CRP, CMP, ESR, CBC #### [address] Eosinophils (Bld) [#/Vol] 0.1 10*3/uL Normal 0.0-0.[address] [facility] Comment on above: Performed By: #### T4F, TSH3, CRP, CMP, ESR, CBC #### [address] Eosinophils/100 WBC (Bld) 1.0 % Normal . [facility] Comment on above: Performed By: #### T4F, TSH3, CRP, CMP, ESR, CBC #### [address] Erythrocyte distribution width (RBC) [Ratio] 15.0 % Normal 11.9-15.[address] [facility] Comment on above: Performed By: #### T4F, TSH3, CRP, CMP, ESR, CBC #### [address] Hematocrit (Bld) [Volume fraction] 36.3 % Normal 34.0-46.[address] [facility] Comment on above: Performed By: #### T4F, TSH3, CRP, CMP, ESR, CBC #### [address] Hemoglobin (Bld) [Mass/Vol] 11.8 g/dL Normal 11.8-15.[address] [facility] Comment on above: Performed By: #### T4F, TSH3, CRP, CMP, ESR, CBC #### [address] Lymphocytes (Bld) [#/Vol] 1.4 10*3/uL Normal 1.00-4.[address] [facility] Comment on above: Performed By: #### T4F, TSH3, CRP, CMP, ESR, CBC #### [address] Lymphocytes/100 WBC (Bld) 20.9 % Normal . [facility] Comment on above: Performed By: #### T4F, TSH3, CRP, CMP, ESR, CBC #### [address] MCH (RBC) [Entitic mass] 28.9 pg Normal 24.7-34.[address] [facility] Comment on above: Performed By: #### T4F, TSH3, CRP, CMP, ESR, CBC #### [address] MCV (RBC) [Entitic vol] 88.4 fL Normal 80-[address] [facility] Comment on above: Performed By: #### T4F, TSH3, CRP, CMP, ESR, CBC #### [address] Mean Corpuscular HGB Conc 32.7 g/dL Normal 32.0-35.[address] [facility] Comment on above: Performed By: #### T4F, TSH3, CRP, CMP, ESR, CBC #### [address] Monocytes (Bld) [#/Vol] 0.6 10*3/uL Normal 0.0-0.[address] [facility] Comment on above: Performed By: #### T4F, TSH3, CRP, CMP, ESR, CBC #### [address] Monocytes/100 WBC (Bld) 9.2 % Normal . [facility] Comment on above: Performed By: #### T4F, TSH3, CRP, CMP, ESR, CBC #### [address] Neutrophils (Bld) [#/Vol] 4.4 10*3/uL Normal 1.8-7.[address] [facility] Comment on above: Performed By: #### T4F, TSH3, CRP, CMP, ESR, CBC #### [address] Neutrophils/100 WBC (Bld) 67.9 % Normal . [facility] Comment on above: Performed By: #### T4F, TSH3, CRP, CMP, ESR, CBC #### [place] [address] [place] NRBC% 0.1 /100{WBC} Normal 0-0.[address] [facility] Comment on above: Performed By: #### T4F, TSH3, CRP, CMP, ESR, CBC #### [address] Platelet mean volume (Bld) [Entitic vol] 8.8 fL Normal 6.3-10.[address] [facility] Comment on above: Performed By: #### T4F, TSH3, CRP, CMP, ESR, CBC #### [address] Platelets (Bld) [#/Vol] 272 10*3/uL Normal 150-[address] [facility] Comment on above: Performed By: #### T4F, TSH3, CRP, CMP, ESR, CBC #### [address] RBC (Bld) [#/Vol] 4.11 10*6/uL Normal 3.60-5.[address] [facility] Comment on above: Performed By: #### T4F, TSH3, CRP, CMP, ESR, CBC #### [address] WBC (Bld) [#/Vol] 6.5 10*3/uL Normal 3.8-11.[address] [facility] Comment on above: Performed By: #### T4F, TSH3, CRP, CMP, ESR, CBC #### [address] Comprehensive Metabolic Pane johana 09-07-2022 Albumin [Mass/Vol] 3.7 g/dL Normal 3.5-5.[address] [facility] Comment on above: Performed By: #### T4F, TSH3, CRP, CMP, ESR, CBC #### [address] Albumin/Globulin [Mass ratio] 1.4 {ratio} Normal [facility] Comment on above: Performed By: #### T4F, TSH3, CRP, CMP, ESR, CBC #### [address] [place] [address] [place] ALP [Catalytic activity/Vol] 83 U/L Normal 34-[address] [facility] Comment on above: Performed By: #### T4F, TSH3, CRP, CMP, ESR, CBC #### [facility] [address] ALT [Catalytic activity/Vol] 9 U/L Normal 7-[address] [facility] Comment on above: Performed By: #### T4F, TSH3, CRP, CMP, ESR, CBC #### [address] Anion gap [Moles/Vol] 11.9 mmol/L Normal 6.0-15.[address] [facility] Comment on above: Performed By: #### T4F, TSH3, CRP, CMP, ESR, CBC #### [address] AST [Catalytic activity/Vol] 12 U/L Low 13-[address] [facility] Comment on above: Performed By: #### T4F, TSH3, CRP, CMP, ESR, CBC #### [address] Bilirubin [Mass/Vol] 0.4 mg/dL Normal 0.3-1.[address] [facility] Comment on above: Performed By: #### T4F, TSH3, CRP, CMP, ESR, CBC #### [address] Calcium [Mass/Vol] 9.0 mg/dL Normal 8.6-10.[address] [facility] Comment on above: Performed By: #### T4F, TSH3, CRP, CMP, ESR, CBC #### [place] [address] [place] Chloride [Moles/Vol] 105 mmol/L Normal 98-[address] [facility] Comment on above: Performed By: #### T4F, TSH3, CRP, CMP, ESR, CBC #### [address] CO2 [Moles/Vol] 30.4 mmol/L Normal 21.0-31.0 [facility] Comment on above: Performed By: #### T4F, TSH3, CRP, CMP, ESR, CBC #### [address] Creatinine [Mass/Vol] 0.92 mg/dL Normal 0.60-1.[address] [facility] Comment on above: Performed By: #### T4F, TSH3, CRP, CMP, ESR, CBC #### [address] GFR/1.73 sq M.predicted MDRD (S/P/Bld) [Vol rate/Area] mL/min/{1.73_m2} [facility] Comment on above: Performed By: #### T4F, TSH3, CRP, CMP, ESR, CBC #### [address] Globulin (S) [Mass/Vol] 2.6 g/dL Normal [facility] Comment on above: Performed By: #### T4F, TSH3, CRP, CMP, ESR, CBC #### [address] Glucose [Mass/Vol] 92 mg/dL Normal 70-[address] [facility] Comment on above: Result Comment: Random Glucose Reference Range is dependent on time and content of last meal. Glucose of more than 200 mg/dL in a nonstressed, ambulatory subject supports the diagnosis of Diabetes Mellitus. ADA recommended reference range Performed By: #### T 4F, TSH3, CRP, CMP, ESR, CBC #### [address] Potassium [Moles/Vol] 4.3 mmol/L Normal 3.5-5.[address] [facility] Comment on above: Performed By: #### T4F, TSH3, CRP, CMP, ESR, CBC #### [address] Protein [Mass/Vol] 6.3 g/dL Low 6.4-8.[address] [facility] Comment on above: Performed By: #### T4F, TSH3, CRP, CMP, ESR, CBC #### [facility] [address] [place] [address] [place] Sodium [Moles/Vol] 143 mmol/L Normal 136-[address] [facility] Comment on above: Performed By: #### T4F, TSH3, CRP, CMP, ESR, CBC #### [facility] [address] [place] [address] [place] Urea nitrogen [Mass/Vol] 21 mg/dL Normal 7-[address] [facility] Comment on above: Performed By: #### T4F, TSH3, CRP, CMP, ESR, CBC #### [facility] [address] [place] [address] [place] Dipstick and Microscopicon 0 09-07-2022 Appearance (U) Cloudy Critically abnormal Clear [facility] Comment on above: Order Comment: Name Collection Type:: Cl marcie-Voided Midstream Performed By: #### S PE, UPE RAND, VITO SERUM, VITO,URINE #### [facility] , #### CUU, ADDONUAPLUS #### [facility] [address] [place] [address] [place] Bacteria,Urine 4+ High None Seen [facility] Comment on above: Order Comment: Name Collection Type:: Cl marcie-Voided Midstream Performed By: #### S PE, UPE RAND, VITO SERUM, VITO,URINE #### [facility] , #### CUU, ADDONUAPLUS #### [facility] [address] [place] [address] [place] Bilirubin,Urine Negative Normal Negative [facility] Comment on above: Order Comment: Name Collection Type:: Cl marcie-Voided Midstream Performed By: #### S PE, UPE RAND, VITO SERUM, VITO,URINE #### [facility] , #### CUU, ADDONUAPLUS #### [facility] [address] [place] [address] [place] Color (U) Yellow Normal Yellow [facility] Comment on above: Order Comment: Name Collection Type:: Cl marcie-Voided Midstream Performed By: #### S PE, UPE RAND, VITO SERUM, VITO,URINE #### [facility] , #### CUU, ADDONUAPLUS #### [facility] [address] [place] [address] Glucose Ql (U) Normal Normal Normal [facility] Comment on above: Order Comment: Name Collection Type:: Cl marcie-Voided Midstream Performed By: #### S PE, UPE RAND, VITO SERUM, VITO,URINE #### [facility] , #### CUU, ADDONUAPLUS #### [address] Hyaline Casts,Urine 0-8 Normal 0-[address] [facility] Comment on above: Order Comment: Name Collection Type:: Cl marcie-Voided Midstream Result Comment: PERF ORMED BY: [place] [address] PATHOLOGIST RECORDS SUPERVISOR JORGE LUIS RUELAS M.D. Performed By: #### S PE, UPE RAND, VITO SERUM, VITO,URINE #### [facility] , #### CUU, ADDONUAPLUS #### [address] Ketones Ql (U) Trace High Negative [facility] Comment on above: Order Comment: Name Collection Type:: Cl marcie-Voided Midstream Performed By: #### S PE, UPE RAND, VITO SERUM, VITO,URINE #### [facility] , #### CUU, ADDONUAPLUS #### [facility] [address] [place] [address] Leukocyte esterase Test strip Ql (U) 1+ High Negative [facility] Comment on above: Order Comment: Name Collection Type:: Cl marcie-Voided Midstream Performed By: #### S PE, UPE RAND, VITO SERUM, VITO,URINE #### [facility] , #### CUU, ADDONUAPLUS #### [facility] [address] [place] [address] Nitrite,Urine Positive High Negative [facility] Comment on above: Order Comment: Name Collection Type:: Cl marcie-Voided Midstream Performed By: #### S PE, UPE RAND, VITO SERUM, VITO,URINE #### [facility] , #### CUU, ADDONUAPLUS #### [facility] [address] [place] [address] Occult Blood,Urine Negative Normal Negative [facility] Comment on above: Order Comment: Name Collection Type:: Cl marcie-Voided Midstream Performed By: #### S PE, UPE RAND, VITO SERUM, VITO,URINE #### [facility] , #### CUU, ADDONUAPLUS #### [facility] [address] [place] [address] pH (U) 5.5 [pH] Normal 5.0-9.[address] [facility] Comment on above: Order Comment: Name Collection Type:: Cl marcie-Voided Midstream Performed By: #### S PE, UPE RAND, VITO SERUM, VITO,URINE #### [facility] , #### CUU, ADDONUAPLUS #### [address] Protein,Urine Negative Normal Negative [facility] Comment on above: Order Comment: Name Collection Type:: Cl marcie-Voided Midstream Performed By: #### S PE, UPE RAND, VITO SERUM, VITO,URINE #### [facility] , #### CUU, ADDONUAPLUS #### [facility] [address] [place] [address] [place] RBC,Urine 3-4 Normal 0-[address] [facility] Comment on above: Order Comment: Name Collection Type:: Cl marcie-Voided Midstream Performed By: #### S PE, UPE RAND, VITO SERUM, VITO,URINE #### [facility] , #### CUU, ADDONUAPLUS #### [facility] [address] [place] [address] Specificy [place],Urine 1.027 Normal 1.001-1.[address] [facility] Comment on above: Order Comment: Name Collection Type:: Cl marcie-Voided Midstream Performed By: #### S PE, UPE RAND, VITO SERUM, VITO,URINE #### [facility] , #### CUU, ADDONUAPLUS #### [address] Squamous Epithelial Cell,Urine 5-9 High 0-[address] [facility] Comment on above: Order Comment: Name Collection Type:: Cl marcie-Voided Midstream Performed By: #### S PE, UPE RAND, VITO SERUM, VITO,URINE #### [facility] , #### CUU, ADDONUAPLUS #### [address] Urobilinogen,Uri ne Normal Normal Normal [facility] Comment on above: Order Comment: Name Collection Type:: Cl marcie-Voided Midstream Performed By: #### S PE, UPE RAND, VITO SERUM, VITO,URINE #### [facility] , #### CUU, ADDONUAPLUS #### [facility] [address] [place] [address] WBC,Urine 5-9 High 0-[address] [facility] Comment on above: Order Comment: Name Collection Type:: Cl marcie-Voided Midstream Performed By: #### S PE, UPE RAND, VITO SERUM, VITO,URINE #### [facility] , #### CUU, ADDONUAPLUS #### [facility] [address] [place] [address] Erythrocyte Sedimentation Ra trent 09-07-2022 ESR (Bld) [Velocity] 63 mm/h High 0-[address] [facility] Comment on above: Result Comment: PERFORMED BY: [place] [address] PATHOLOGIST RECORDS SUPERVISOR JORGE LUIS RUELAS M.D. Performed By: #### T 4F, TSH3, CRP, CMP, ESR, CBC #### [address] Free T4 (Free Thyroxine)on 0 09-07-2022 Free T4 [Mass/Vol] 0.96 ng/dL Normal 0.61-1.[address] [facility] Comment on above: Performed By: #### T4F, TSH3, CRP, CMP, ESR, CBC #### [place] [address] [place] Immunofixation, (VITO), Urine on 09-07-2022 Immunofixation, (VITO), Urine Normal . [facility] Comment on above: Result Comment: No monoclonality detecte d. Performed at: [facility] [id number] [employer] Underwriter: Naldo Valdez PhD, Phone: [phone] Performed By: #### T 4F, TSH3, CRP, CMP, ESR, CBC #### [address] Immunofixation,Serumon 09-07 Immunofixation, Serum Normal . [facility] Comment on above: Result Comment: No monoclonality detecte d. Performed By: #### S PE, UPE RAND, VITO SERUM, VITO,URINE #### [facility] , #### CUU, ADDONUAPLUS #### [place] [address] [place] Immunoglobulin A, Serum 107 mg/dL Normal 64-[address] [facility] Comment on above: Performed By: #### SPE, UPE RAND, VITO SE RUM, VITO,URINE #### [facility] , #### CUU, ADDONUAPLUS #### [address] Immunoglobulin G 972 mg/dL Normal 586-1602 [facility] Comment on above: Performed By: #### SPE, UPE RAND, VITO SE RUM, VITO,URINE #### [facility] , #### CUU, ADDONUAPLUS #### [facility] [address] [place] [id number] [place] Immunoglobulin M, Serum 348 mg/dL High 26-[address] [facility] Comment on above: Result Comment: Performed at: [facility] [id number] [employer] Underwriter: Naldo Valdez PhD, Phone: [phone] Performed By: #### S PE, UPE RAND, VITO SERUM, VITO,URINE #### [facility] , #### CUU, ADDONUAPLUS #### [facility] [address] [place] [address] [place] Protein Electro, Random Urin chester 09-07-2022 Albumin, Urine 15.7 % Normal . [facility] Comment on above: Performed By: #### T4F, TSH3, CRP, CMP, ESR, CBC #### [facility] [address] [place] [id number] [place] Neywv-0-Ppiucjmw , Urine 1.3 % Normal . [facility] Comment on above: Performed By: #### T4F, TSH3, CRP, CMP, ESR, CBC #### [facility] [address] [place] [id number] [place] Maeqw-5-Viqxmrul , Urine 17.8 % Normal . [facility] Comment on above: Performed By: #### T4F, TSH3, CRP, CMP, ESR, CBC #### [facility] [address] [place] [id number] [place] Beta Globulin, Urine 36.1 % Normal . [facility] Comment on above: Performed By: #### T4F, TSH3, CRP, CMP, ESR, CBC #### [facility] [address] [place] [id number] [place] Gamma Globulin, Urine 29.0 % Normal . [facility] Comment on above: Performed By: #### T4F, TSH3, CRP, CMP, ESR, CBC #### [address] M-Virgil % Not Observed Normal Not Observed [facility] Comment on above: Performed By: #### T4F, TSH3, CRP, CMP, ESR, CBC #### [address] Please Note: Normal . [facility] Comment on above: Result Comment: Protein electrophoresis scan will follow via computer, mail, or geodetic engineer delivery. PERFORMED BY: [place] [address] PATHOLOGIST RECORDS SUPERVISOR JORGE LUIS RUELAS M.D. Performed By: #### T 4F, TSH3, CRP, CMP, ESR, CBC #### [address] Protein (U) [Mass/Vol] 27.7 mg/dL Normal Not Estab. [facility] Comment on above: Performed By: #### T4F, TSH3, CRP, CMP, ESR, CBC #### [address] Protein Electrophoresis, Ser umon 09-07-2022 Albumin [Mass/Vol] 3.3 g/dL Normal 2.9-4.[address] [facility] Comment on above: Performed By: #### SPEJACKIEE RAND, VITO SE RUM, VITO,URINE #### [facility] , #### CUU, ADDONUAPLUS #### [address] Albumin/Globulin [Mass ratio] 1.1 {ratio} Normal 0.7-1.[address] [facility] Comment on above: Performed By: #### SPE, UPE RAND, VITO SE RUM, VTIO,URINE #### [facility] , #### CUU, ADDONUAPLUS #### [address] Atcdj-2-Yklwgwfl 0.3 g/dL Normal 0.0-0.4 [facility] Comment on above: Performed By: #### SPE, UPE RAND, VITO SE RUM, VITO,URINE #### [facility] , #### CUU, ADDONUAPLUS #### [facility] [address] [place] [address] Hnvic-9-Lewinqur 0.9 g/dL Normal 0.4-1.0 [facility] Comment on above: Performed By: #### SPE, UPE RAND, VITO SE RUM, VITO,URINE #### [facility] , #### CUU, ADDONUAPLUS #### [facility] [address] [place] [address] Beta Globulin 0.9 g/dL Normal 0.7-1.[address] [facility] Comment on above: Performed By: #### SPE, UPE RAND, VITO SE RUM, VITO,URINE #### [facility] , #### CUU, ADDONUAPLUS #### [facility] [address] [place] [address] Gamma Globulin 1.1 g/dL Normal 0.4-1.[address] [facility] Comment on above: Performed By: #### SPE, UPE RAND, VITO SE RUM, VITO,URINE #### [facility] , #### CUU, ADDONUAPLUS #### [facility] [address] [place] [address] [place] Globulin (S) [Mass/Vol] 3.1 g/dL Normal 2.2-3.[address] [facility] Comment on above: Performed By: #### SPE, UPE RAND, VITO SE RUM, VITO,URINE #### [facility] , #### CUU, ADDONUAPLUS #### [facility] [address] [place] [address] M-Virgil Not Observed Normal Not Observed [facility] Comment on above: Performed By: #### SPE, UPE RAND, VITO SE RUM, VITO,URINE #### [facility] , #### CUU, ADDONUAPLUS #### [address] Protein [Mass/Vol] 6.4 g/dL Normal 6.0-8.[address] [facility] Comment on above: Performed By: #### SPE, UPE RAND, VITO SE RUM, VITO,URINE #### [facility] , #### CUU, ADDONUAPLUS #### [address] SPE-Note Normal . [facility] Comment on above: Result Comment: Protein electrophoresis scan will follow via computer, mail, or geodetic engineer delivery. Performed at: [facility] [id number] [employer] Underwriter: Naldo Valdez PhD, Phone: [phone] PERFORMED BY: [place] [address] PATHOLOGIST RECORDS SUPERVISOR JORGE LUIS RUELAS M.D. Performed By: #### S PE, UPE RAND, VITO SERUM, VITO,URINE #### [facility] , #### CUU, ADDONUAPLUS #### [address] Thyroid Stimulating Hormoneo n 09-07-2022 TSH Qn 1.60 m[IU]/L Normal 0.45-5.[address] [facility] Comment on above: Result Comment: PERFORMED BY: [place] [address] PATHOLOGIST RECORDS SUPERVISOR JORGE LUIS RUELAS M.D. Performed By: #### T 4F, TSH3, CRP, CMP, ESR, CBC #### [address] Urine Cultureon 09-07-2022 Bacteria identified Cx Nom (U) ORGANISM: Escherichia coli (O:ESCCOL) Breaks Count >100,000 Aerobic DELFIN Charge ([id number]) SUSCEPTIBILITY [...] RESISTANT TO ALL B-LACTAM DRUGS. PERFORMED BY: [place] [id number] PATHOLOGIST RECORDS SUPERVISOR JORGE LUIS RUELAS M.D. Normal [facility] Comment on above: Performed By: #### LUZMARIA, CORNELL RAND, VITO SE RUM, VITO,URINE #### [facility] , #### DEB ADDONUAPLUS #### [address] CULTURE URINEon 05-28-2022 CULTURE URINE Isolate [...] F Trimethoprim/Sulfamethoxazole <=20 S F Normal [facility] Comment on above: Performed By: #### UACSIND #### [facility] [address] [place] [address] Dr. Megan Caballero ALDOLASEon 05-27-2022 Aldolase 5.8 U/L Normal 3.3-10.3 [facility] Comment on above: Performed By: #### LACT #### [facility] [address] [place] [address] Dr. Megan Caballero TAO DIRECTon 05-27-2022 TAO Direct Negative Normal Negative [facility] Comment on above: Performed By: #### LACT #### [facility] [address] [place] [address] Dr. Megan Caballero RHEUMATOID FACTORon 05-28-19 23 RA Latex Turbid. 28.2 IU/mL Critically high <14.0 [facility] Comment on above: Performed By: #### LACT #### [facility] [address] [place] [address] Dr. Megan Caballero CBC AUTO DIFFon 05-26-2022 BASO # 0.0 103/ul Normal 0.0-0.1 [facility] Comment on above: Performed By: #### LACT #### [facility] [address] [place] [address] Dr. Megan Caballero Basophils/100 WBC (Bld) 0.1 % Critically low 0.2-2.0 [facility] Comment on above: Performed By: #### LACT #### [facility] [address] [place] [address] Dr. Megan Caballero EO # 0.0 103/ul Normal 0.0-0.7 [facility] Comment on above: Performed By: #### LACT #### [facility] [address] [place] [address] Dr. Megan Caballero Eosinophils/100 WBC (Bld) 0.0 % Critically low 0.9-7.0 [facility] Comment on above: Performed By: #### LACT #### [facility] [address] [place] [address] Dr. Megan Caballero Erythrocyte distribution width (RBC) [Ratio] 13.4 % Normal 11.0-15.0 [facility] Comment on above: Performed By: #### LACT #### [facility] [address] [place] [address] Dr. Megan Caballero Hematocrit (Bld) [Volume fraction] 33.4 % Critically low 36.0-48.0 [facility] Comment on above: Performed By: #### LACT #### [facility] [address] [place] [address] Dr. Megan Caballero Hemoglobin (Bld) [Mass/Vol] 11.0 g/dL Critically low 12.0-16.0 [facility] Comment on above: Performed By: #### LACT #### [facility] [address] [place] [address] Dr. Megan Caballero IG # 0.12 10e3/ul Critically high 0.00-0.03 [facility] Comment on above: Performed By: #### LACT #### [facility] [address] [place] [address] Dr. Megan Caballero IG % 0.9 % Critically high 0.0-0.5 [facility] Comment on above: Performed By: #### LACT #### [facility] [address] [place] [address] Dr. Megan Caballero LYMPH # 0.8 103/ul Critically low 1.2-3.8 [facility] Comment on above: Performed By: #### LACT #### [facility] [address] [place] [address] Dr. Megan Caballero Lymphocytes/100 WBC (Bld) 5.7 % Critically low 20.5-60.0 [facility] Comment on above: Performed By: #### LACT #### [facility] [address] [place] [address] Dr. Megan Caballero MANUAL DIFF REQ NO Normal [facility] Comment on above: Performed By: #### LACT #### [facility] [address] [place] [address] Dr. Megan Caballero MCH (RBC) [Entitic mass] 29.2 pg Normal 26.7-34.0 [facility] Comment on above: Performed By: #### LACT #### [facility] [address] [place] [address] Dr. Megan Caballero MCHC (RBC) [Mass/Vol] 32.9 g/dL Normal 29.9-35.2 [facility] Comment on above: Performed By: #### LACT #### [facility] [address] [place] [address] Dr. Megan Caballero MCV (RBC) [Entitic vol] 88.6 fL Normal 81.0-99.0 [facility] Comment on above: Performed By: #### LACT #### [facility] [address] [place] [address] Dr. Megan Caballero MONO # 1.1 103/ul Critically high 0.3-0.8 [facility] Comment on above: Performed By: #### LACT #### [facility] [address] [place] [address] Dr. Megan aCballero Monocytes/100 WBC (Bld) 7.9 % Normal 1.7-12.0 [facility] Comment on above: Performed By: #### LACT #### [facility] [address] [place] [address] Dr. Megan Caballero NEUT # 11.9 103/ul Critically high 1.4-6.5 [facility] Comment on above: Performed By: #### LACT #### [facility] [address] [place] [address] Dr. Megan Caballero Neutrophils/100 WBC (Bld) 85.4 % Critically high 43.0-75.0 [facility] Comment on above: Performed By: #### LACT #### [facility] [address] [place] [address] Dr. Megan Caballero Platelet mean volume (Bld) [Entitic vol] 10.2 fL Normal 9.5-13.5 [facility] Comment on above: Performed By: #### LACT #### [facility] [address] [place] [address] Dr. Megan Caballero PLT 176 103/ul Normal 150-450 [facility] Comment on above: Performed By: #### LACT #### [facility] [address] [place] [address] Dr. Megan Caballero RBC 3.77 106/ul Critically low 4.20-5.40 [facility] Comment on above: Performed By: #### LACT #### [facility] [address] [place] [address] Dr. Megan Caballero WBC 13.9 103/ul Critically high 4.0-11.0 [facility] Comment on above: Performed By: #### LACT #### [facility] [address] [place] [address] Dr. Megan Caballero CULTURE BLOODon 05-26-2022 Microscopic examination of blood, culture Culture Observations: NO GROWTH AT 5 DAYS. Normal [facility] Comment on above: Performed By: #### UACSIND #### [facility] [address] [place] [address] Dr. Megan Caballero Microscopic examination of blood, culture Culture Observations: NO GROWTH AT 5 DAYS. Normal [facility] Comment on above: Performed By: #### UACSIND #### [facility] [address] [place] [address] Dr. Megan Caballero LACTATE/LACTIC ACIDon 2022 Lactate [Moles/Vol] 1.1 mmol/L Normal 0.4-1.9 [facility] Comment on above: Performed By: #### LACT #### [facility] [address] [place] [address] Dr. Megan Caballero LIVER PROFILEon 05-26-2022 Albumin [Mass/Vol] 2.7 g/dL Critically low 3.4-5.0 [facility] Comment on above: Performed By: #### LACT #### [facility] [address] [place] [address] Dr. Megan Caballero Albumin/Globulin [Mass ratio] 0.6 {ratio} Normal [facility] Comment on above: Performed By: #### LACT #### [facility] [address] [place] [address] Dr. Megan Caballero ALP [Catalytic activity/Vol] 107 U/L Normal 46-116 [facility] Comment on above: Performed By: #### LACT #### [facility] [address] [place] [address] Dr. Megan Caballero ALT [Catalytic activity/Vol] 12 U/L Critically low 14-59 [facility] Comment on above: Performed By: #### LACT #### [facility] [address] [place] [address] Dr. Megan Caballero AST [Catalytic activity/Vol] 16 U/L Normal 15-37 [facility] Comment on above: Performed By: #### LACT #### [facility] [address] [place] [address] Dr. Megan Caballero BILI, CONJUGATED 0.1 mg/dL Normal 0.0-0.2 [facility] Comment on above: Performed By: #### LACT #### [facility] [address] [place] [address] Dr. Megan Caballero Bilirubin [Mass/Vol] 0.6 mg/dL Normal 0.2-1.0 [facility] Comment on above: Performed By: #### LACT #### [facility] [address] [place] [address] Dr. Megan Caballero Globulin (S) [Mass/Vol] 4.2 g/dL Normal [facility] Comment on above: Performed By: #### LACT #### [facility] [address] [place] [address] Dr. Megan Caballero Protein [Mass/Vol] 6.9 g/dL Normal 6.4-8.2 [facility] Comment on above: Performed By: #### LACT #### [facility] [address] [place] [address] Dr. Megan Caballero MAGNESIUMon 05-26-2022 Magnesium [Mass/Vol] 1.9 mg/dL Normal 1.8-2.4 [facility] Comment on above: Performed By: #### MG #### [facility] [address] [place] [address] Dr. Megan Caballero NM BONE SC WH [...] IHSAN PEDROZA Date: 2022-05-26 15:25 Normal [facility] PROF 14(COMP METB)on 023 Albumin [Mass/Vol] 2.4 g/dL Critically low 3.4-5.0 [facility] Comment on above: Performed By: #### LACT #### [facility] [address] [place] [address] Dr. Megan Caballero Albumin/Globulin [Mass ratio] 0.6 {ratio} Normal [facility] Comment on above: Performed By: #### LACT #### [facility] [address] [place] [address] Dr. Megan Caballero ALP [Catalytic activity/Vol] 92 U/L Normal 46-116 [facility] Comment on above: Performed By: #### LACT #### [facility] [address] [address] [address] Megan Caballero ALT [Catalytic activity/Vol] 10 U/L Critically low 14-59 [facility] Comment on above: Performed By: #### LACT #### [facility] [address] [place] [address] Dr. Megan Caballero Anion gap [Moles/Vol] 10.3 mmol/L Normal [facility] Comment on above: Performed By: #### LACT #### [facility] [address] [address] [address] Megan Caballero AST [Catalytic activity/Vol] 14 U/L Critically low 15-37 [facility] Comment on above: Performed By: #### LACT #### [facility] [address] [address] [address] Megan Caballero Bilirubin [Mass/Vol] 0.5 mg/dL Normal 0.2-1.0 [facility] Comment on above: Performed By: #### LACT #### [facility] [address] [address] [address] Megan Caballero Calcium [Mass/Vol] 8.2 mg/dL Critically low 8.5-10.1 [facility] Comment on above: Performed By: #### LACT #### [facility] [address] [address] [address] Megan Caballero Chloride [Moles/Vol] 104 mmol/L Normal 98-107 [facility] Comment on above: Performed By: #### LACT #### [facility] [address] [address] [address] Megan Caballero CO2 [Moles/Vol] 28.2 mmol/L Normal 21.0-32.0 [facility] Comment on above: Performed By: #### LACT #### [facility] [address] [address] [address] Megan Caballero Creatinine [Mass/Vol] 1.05 mg/dL Critically high 0.55-1.02 [facility] Comment on above: Performed By: #### LACT #### [facility] [address] [address] [address] Megan Caballero EGFR-AF MACANESE >60 Normal >=60 [facility] Comment on above: Performed By: #### LACT #### [facility] [address] [address] [address] Megan Caballero EGFR-NON AF MACANESE 50 mL/min/1.73m2 Critically low >=60 [facility] Comment on above: Performed By: #### LACT #### [facility] [address] [address] [address] Megan Caballero Globulin (S) [Mass/Vol] 3.7 g/dL Normal [facility] Comment on above: Performed By: #### LACT #### [facility] [address] [place] [address] Dr. Megan Caballero Glucose [Mass/Vol] 116 mg/dL Critically high 74-106 [facility] Comment on above: Performed By: #### LACT #### [facility] [address] [place] [address] Dr. Megan Caballero Potassium [Moles/Vol] 3.5 mmol/L Normal 3.5-5.1 [facility] Comment on above: Performed By: #### LACT #### [facility] [address] [place] [address] Dr. Megan Caballero Protein [Mass/Vol] 6.1 g/dL Critically low 6.4-8.2 [facility] Comment on above: Performed By: #### LACT #### [facility] [address] [place] [address] Dr. Megan Caballero Sodium [Moles/Vol] 139 mmol/L Normal 136-145 [facility] Comment on above: Performed By: #### LACT #### [facility] [address] [place] [address] Dr. Megan Caballero Urea nitrogen [Mass/Vol] 25.0 mg/dL Critically high 7.0-18.0 [facility] Comment on above: Performed By: #### LACT #### [facility] [address] [place] [address] Dr. Megan Caballero Urea nitrogen/Creatin ine [Mass ratio] 23.8 mg/mg Normal [facility] Comment on above: Performed By: #### LACT #### [facility] [address] [place] [address] Dr. Megan Caballero PTTon 05-26-2022 aPTT Coag (Bld) [Time] 31.1 s Normal 22.3-36.2 [facility] Comment on above: Performed By: #### PTT #### [facility] [address] [place] [address] Dr. Megan Caballero UA RANDOMon 05-26-2022 Bilirubin Ql (U) Negative Normal NEGATIVE [facility] Comment on above: Performed By: #### UA #### [facility] [address] [place] [address] Dr. Megan Caballero Clarity (U) CLEAR Normal CLEAR [facility] Comment on above: Performed By: #### UA #### [facility] [address] [place] [address] Dr. Megan Caballero Color (U) LT. YELLOW Normal YELLOW [facility] Comment on above: Performed By: #### UA #### [facility] [address] [place] [address] Dr. Megan Caballero Glucose Ql (U) Negative Normal NEGATIVE [facility] Comment on above: Performed By: #### UA #### [facility] [address] [place] [address] Dr. Megan Caballero Hemoglobin Ql (U) MODERATE Abnormal NEGATIVE [facility] Comment on above: Performed By: #### UA #### [facility] [address] [place] [address] Dr. Megan Caballero Ketones Ql (U) Negative Normal NEGATIVE [facility] Comment on above: Performed By: #### UA #### [facility] [address] [place] [address] Dr. Megan Caballero LEUKOCYTES TRACE Abnormal NEGATIVE [facility] Comment on above: Performed By: #### UA #### [facility] [address] [place] [address] Dr. Megan Caballero Nitrite Ql (U) Negative Normal NEGATIVE [facility] Comment on above: Performed By: #### UA #### [facility] [address] [place] [address] Dr. Megan Caballero pH (U) 6.0 [pH] Normal 5-9 [facility] Comment on above: Performed By: #### UA #### [facility] [address] [place] [address] Dr. Megan Caballero SPEC GRAVITY 1.015 Normal 1.005-<=1. 025 [facility] Comment on above: Performed By: #### UA #### [facility] [address] [place] [address] Dr. Megan Caballero UA PROTEIN 30 mg/dl Abnormal NEGATIVE/ TRACE [facility] Comment on above: Performed By: #### UA #### [facility] [address] [place] [address] Dr. Megan Caballero Urobilinogen Qn (U) 0.2 {Renu'U}/dL Normal 0.2 - 1.0 [facility] Comment on above: Performed By: #### UA #### [facility] [address] [place] [address] Dr. Megan Caballero XR CHEST 1 Von [...] ALVINO BENITEZ Date: 2022-05-26 04:41 Normal [facility] CPKon 05-25-2022 CK [Catalytic activity/Vol] 73 U/L Normal 26-192 [facility] Comment on above: Performed By: #### UACSIND #### [facility] [address] [place] [address] Dr. Megan Caballero CRPon 05-25-2022 CRP 11.9 mg/dL Critically high <=1.0 [facility] Comment on above: Performed By: #### CRP, URIC #### [facility] [address] [place] [address] Dr. Megan Caballero [facility] SARS-CoV-2 (COVID-19) RNA YU+probe Ql (Unsp spec) Not detected Normal NOT DETECTED [facility] Comment on above: Result Comment: When [...] for this test is supported by the [place] of [employer] and Human Service's declaration that [...] used). Performed By: #### U ACSIND #### [facility] [address] [place] [address] Dr. Megan Caballero SED RATE [facility] 2022 SED RATE 55 mm/hr Critically high <=30 [facility] Comment on above: Performed By: #### SEDR #### [facility] [address] [place] [address] Dr. Megan Caballero TSHon 05-25-2022 TSH 0.533 uIU/mL Normal 0.358-3.74 0 [facility] Comment on above: Performed By: #### TSH #### [facility] [address] [place] [address] Dr. Megan Caballero UA (CLEAN/CATCH) BLUEBERRY GROWER/MICRO I F IND.on 05-25-2022 Bilirubin Ql (U) Negative Normal NEGATIVE [facility] Comment on above: Performed By: #### UACSIND #### [facility] [address] [place] [address] Dr. Megan Caballero Clarity (U) CLEAR Normal CLEAR [facility] Comment on above: Performed By: #### UACSIND #### [facility] [address] [place] [address] Dr. Megan Caballero Color (U) LT. YELLOW Normal YELLOW [facility] Comment on above: Performed By: #### UACSIND #### [facility] [address] [address] [address] Megan Caballero Glucose Ql (U) Negative Normal NEGATIVE [facility] Comment on above: Performed By: #### UACSIND #### [facility] [address] [address] [address] Megan Caballero Hemoglobin Ql (U) TRACE-LYSED Abnormal NEGATIVE [facility] Comment on above: Performed By: #### UACSIND #### [facility] [address] [place] [address] Dr. Megan Caballero Ketones Ql (U) Negative Normal NEGATIVE [facility] Comment on above: Performed By: #### UACSIND #### [facility] [address] [place] [address] Dr. Megan Caballero LEUKOCYTES Negative Normal NEGATIVE [facility] Comment on above: Performed By: #### UACSIND #### [facility] [address] [place] [address] Dr. Megan Caballero Nitrite Ql (U) Negative Normal NEGATIVE [facility] Comment on above: Performed By: #### UACSIND #### [facility] [address] [place] [address] Dr. Megan Caballero pH (U) 6.5 [pH] Normal 5-9 [facility] Comment on above: Performed By: #### UACSIND #### [facility] [address] [place] [address] Dr. Megan Caballero SPEC GRAVITY 1.020 Normal 1.005-<=1. 025 [facility] Comment on above: Performed By: #### UACSIND #### [facility] [address] [place] [address] Dr. Megan Caballero UA PROTEIN Negative Normal NEGATIVE/ TRACE [facility] Comment on above: Performed By: #### UACSIND #### [facility] [address] [place] [address] Dr. Megan Caballero UR MICRO IND NOT INDICATED Normal [facility] Comment on above: Performed By: #### UACSIND #### [facility] [address] [place] [address] Dr. Megan Caabllero Urobilinogen Qn (U) 0.2 {Renu'U}/dL Normal 0.2 - 1.0 [facility] Comment on above: Performed By: #### UACSIND #### [facility] [address] [place] [address] Dr. Megan Caballero URIC ACID SERUMon 05-25-2022 Urate [Mass/Vol] 4.3 mg/dL Normal 2.6-6.0 [facility] Comment on above: Performed By: #### CRP, URIC #### [facility] [address] [place] [address] Dr. Megan Caballero XR FEMUR RTon 05-25-2022 [...] JELANI MAR Date: 2022-05-24 23:28 Normal [facility] CBC W MANUAL DIFFon 05-25-19 23 ATYPICAL LYMPH # Normal [facility] Comment on above: Performed By: #### LACT #### [facility] [address] [place] [address] Dr. Megan Caballero ATYPICAL LYMPH % Normal [facility] Comment on above: Performed By: #### LACT #### [facility] [address] [place] [address] Dr. Megan Caballero BAND # 0.0 103/ul Normal 0.0-0.3 [facility] Comment on above: Performed By: #### LACT #### [facility] [address] [place] [address] Dr. Megan Caballero BAND % 0 % Normal 0-5 [facility] Comment on above: Performed By: #### LACT #### [facility] [address] [place], [place] [id number] Dr. Megan Caballero BASOM # 0.00 103/ul Normal 0.00-0.10 [facility] Comment on above: Performed By: #### LACT #### [facility] [address] [place] [address] Dr. Megan Caballero BASOM % 0.0 % Critically low 0.2-2.0 [facility] Comment on above: Performed By: #### LACT #### [facility] [address] [place] [address] Dr. Megan Caballero BLAST # Normal [facility] Comment on above: Performed By: #### LACT #### [facility] [address] [place] [address] Dr. Megan Caballero BLAST % Normal [facility] Comment on above: Performed By: #### LACT #### [facility] [address] [place] [address] Dr. Megan Caballero CORRECTED WBC Normal 4.0-11.0 [facility] Comment on above: Performed By: #### LACT #### [facility] [address] [place] [address] Dr. Megan Caballero EOS # 0.00 103/ul Normal 0.00-0.70 [facility] Comment on above: Performed By: #### LACT #### [facility] [address] [place] [address] Dr. Megan Caballero EOS% 0.0 % Critically low 0.9-7.0 [facility] Comment on above: Performed By: #### LACT #### [facility] [address] [place] [address] Dr. Megan Caballero HCT 37.2 % Normal 36.0-48.0 [facility] Comment on above: Performed By: #### LACT #### [facility] [address] [place] [address] Dr. Megan Caballero HGB 12.2 g/dl Normal 12.0-16.0 [facility] Comment on above: Performed By: #### LACT #### [facility] [address] [place] [address] Dr. Megan Caballero LYMPHM # 0.23 103/ul Critically low 1.20-3.80 [facility] Comment on above: Performed By: #### LACT #### [facility] [address] [place] [address] Dr. Megan Caballero LYMPHM% 2.0 % Critically low 20.5-60.0 [facility] Comment on above: Performed By: #### LACT #### [facility] [address] [place] [address] Dr. Megan Caballero MCH 28.6 pg Normal 26.7-34.0 [facility] Comment on above: Performed By: #### LACT #### [facility] [address] [place] [address] Dr. Megan Caballero MCHC 32.8 g/dl Normal 29.9-35.2 [facility] Comment on above: Performed By: #### LACT #### [facility] [address] [place] [address] Dr. Megan Caballero MCV 87.1 fL Normal 81.0-99.0 [facility] Comment on above: Performed By: #### LACT #### [facility] [address] [place] [address] Dr. Megan Caballero METAMYELOCYTE # Normal [facility] Comment on above: Performed By: #### LACT #### [facility] [address] [place] [address] Dr. Megan Caballero METAMYELOCYTE % Normal [facility] Comment on above: Performed By: #### LACT #### [facility] [address] [place] [address] Dr. Megan Caballero MONOM# 0.23 103/ul Critically low 0.30-0.80 [facility] Comment on above: Performed By: #### LACT #### [facility] [address] [place] [address] Dr. Megan Caballero MONOM% 2.0 % Normal 1.7-12.0 [facility] Comment on above: Performed By: #### LACT #### [facility] [address] [place] [address] Dr. Megan Caballero MPV 9.5 fL Normal 9.5-13.5 [facility] Comment on above: Performed By: #### LACT #### [facility] [address] [place] [address] Dr. Megan Caballero MYELOCYTE # Normal [facility] Comment on above: Performed By: #### LACT #### [facility] [address] [place] [address] Dr. Megan Caballero MYELOCYTE % Normal [facility] Comment on above: Performed By: #### LACT #### [facility] [address] [place] [address] Dr. Megan Caballero NRBC Normal [facility] Comment on above: Performed By: #### LACT #### [facility] [address] [place] [address] Dr. Megan Caballero PLT 197 103/ul Normal 150-450 [facility] Comment on above: Performed By: #### LACT #### [facility] [address] [place] [address] Dr. Megan Caballero RBC 4.27 106/ul Normal 4.20-5.40 [facility] Comment on above: Performed By: #### LACT #### [facility] [address] [place] [address] Dr. Megan Caballero RDW 13.1 % Normal 11.0-15.0 [facility] Comment on above: Performed By: #### LACT #### [facility] [address] [place] [address] Dr. Megan Caballero SEG # 10.85 103/ul Critically high 1.40-6.50 [facility] Comment on above: Performed By: #### LACT #### [facility] [address] [place] [address] Dr. Megan Caballero SEG % 96.0 % Critically high 43.0-75.0 [facility] Comment on above: Performed By: #### LACT #### [facility] [address] [place] [address] Dr. Megan Caballero WBC 11.3 103/ul Critically high 4.0-11.0 [facility] Comment on above: Performed By: #### LACT #### [facility] [address] [address] [address] Megan Caballero CRPon 05-24-2022 CRP 1.7 mg/dL Critically high <=1.0 [facility] Comment on above: Performed By: #### LACT #### [facility] [address] [address] [address] PELVIS WO CONon [...] of iterative reconstruction technique. FINDINGS: The initial meat packager views demonstrate bilateral total hip prostheses. The [...] JELANI MAR Date: 2022-05-24 21:51 Normal [facility] PROF CHEM 8 (BAS METB)on Anion gap [Moles/Vol] 12.6 mmol/L Normal [facility] Comment on above: Performed By: #### LACT #### [facility] [address] [address] [address] Megan Caballero Calcium [Mass/Vol] 8.6 mg/dL Normal 8.5-10.1 [facility] Comment on above: Performed By: #### LACT #### [facility] [address] [address] [address] Megan Caballero Chloride [Moles/Vol] 102 mmol/L Normal 98-107 [facility] Comment on above: Performed By: #### LACT #### [facility] [address] [address] [address] Megan Caballero CO2 [Moles/Vol] 28.6 mmol/L Normal 21.0-32.0 [facility] Comment on above: Performed By: #### LACT #### [facility] [address] [address] [address] Megan Caballero Creatinine [Mass/Vol] 0.73 mg/dL Normal 0.55-1.02 [facility] Comment on above: Performed By: #### LACT #### [facility] [address] [place] [address] Dr. Megan Caballero EGFR-AF MACANESE >60 Normal >=60 [facility] Comment on above: Performed By: #### LACT #### [facility] [address] [address] [address] Megan Caballero EGFR-NON AF MACANESE >60 Normal >=60 [facility] Comment on above: Performed By: #### LACT #### [facility] [address] [address] [address] Megan Caballero Glucose [Mass/Vol] 121 mg/dL Critically high 74-106 [facility] Comment on above: Performed By: #### LACT #### [facility] [address] [address] [address] Megan Caballero Potassium [Moles/Vol] 3.2 mmol/L Critically low 3.5-5.1 [facility] Comment on above: Performed By: #### LACT #### [facility] [address] [address] [address] Megan Caballero Sodium [Moles/Vol] 140 mmol/L Normal 136-145 [facility] Comment on above: Performed By: #### LACT #### [facility] [address] [address] [address] Megan Caballero Urea nitrogen [Mass/Vol] 15.0 mg/dL Normal 7.0-18.0 [facility] Comment on above: Performed By: #### LACT #### [facility] [address] [address] [address] Megan Caballero Urea nitrogen/Creatin ine [Mass ratio] 20.5 mg/mg Normal [facility] Comment on above: Performed By: #### LACT #### [facility] [address] [address] [address] Megan Caballero [facility] 54 mm/hr Critically high <=30 [facility] Comment on above: Performed By: #### SEDR #### [facility] [address] [address] [address] Megan Caballero CNOVon 05-30-2020 CNOV Office Visit (UROLAV ) JOSEANGELIKA Kim ([id number]) 1940 [place] Date Time Provider Department 05/30/20 6:00 PM NEGRO POMPA During your visit today, we recorded the following information about you: Pulse Blood pressure Weight 101/minute 141/67 98.4 kg Negro Pompa MD 05/30/2020 6:[address] [facility] EST[facility] FOR FEMALE PELVIC [...] Via bladder scan. Referring Provider: NEGRO POMPA [[id number]] Allergies As of Date: 05/30/2020 Noted Allergy [...] breast cancer [Z85.3] 01/10/2014 Visit Notes: >> Kell Arauz MA [facility] May 30, 2020 6:31 PM Status: Signed PVR = 71 ml Via bladder scan. Medications Discontinued During This Encounter Prescriptions - solifenacin 10 mg tablet (Discontinued) Take 5 mg by mouth once daily. Encounter Status:Closed by NEGRO POMPA MD on 05/30/20 Normal [facility] CNCOon 05-28-2020 CNCO Letter Text Normal [facility] ANES POSTPROC EVALon 021 ANES POSTPROC EVAL HNO ID: [id number] Author: Ihsan Gamino Service: Anesthesiology Author Type: Anesthesiologist Type: Anesthesia Postprocedure Evaluation Filed: 05/01/2020 4:49 PM Note Text: POST ANESTHESIA EVALUATION NOTE : 1940 Procedure Summary Date: 05/01/20 Room / Location: [address] / [facility] Anesthesia Start: 1504 Anesthesia Stop: 162 Procedures: REVISE SLING TX FOR STRESS INCONTINENCE [...] May 01, 2020 TIME: 4:49 PM CSN: [id number] [facility] ANES PRE-OPon 05-01-2020 ANES PRE-OP HNO ID: [id number] Author: Ihsan Gamino Service: Anesthesiology Author Type: [...] Pulse 98 05/01/20 1449 Resp 18 05/01/20 1449 Temp 36.4 ?C (97.5 ?F) 05/01/20 1449 SpO2 99 % 05/01/20 1449 Facility-Administered Medications as of 05/01/2020 Medication Dose [...] May 01, 2020 TIME: 3:53 PM CSN: [id number] [facility] HISTORY PHYSICALon HISTORY PHYSICAL HNO ID: [id number] Author: Negro Pompa Service: Urology Author Type: [...] Pompa MD May 01, 2020 1:22 PM [facility] OPERATIVE NOon 05-01-2020 OPERATIVE NO HNO ID: [id number] Author: Negro Pompa Service: Urology Author Type: Physician Type: Operative Report Filed: 05/01/2020 5:00 PM Note Text: OPERATIVE/PROCEDURE REPORT LOG ID: [id number] SURGERY/PROCEDURE DATE: 05/01/2020 INCISION/PROCEDURE START TIME: 3:28 PM INCISION CLOSE/PROCEDURE END TIME: 4:05 PM SURGEON(S)/PROCEDURALIST(S) AND METHANE GAS COLLECTION SYSTEM OPERATOR(S): Surgeon(s) and Role: * Negro Pompa - [...] 2020 TIME: 4:45 PM PAGER/CONTACT #: Normal [facility] SURGICAL PATHOLOGYon 021 SURGICAL PATHOLOGY Specimen originated from [facility] Specimen #: [id number] Submitting Physician: NEGRO POMPA FINAL DIAGNOSIS Vaginal [...] cassette. DOUG/evens 05/02/2020 Gross examination performed at [facility], [address] [address] Date of Report: 05/06/2020 Date of Procedure: 05/01/2020 Date of Receipt: 05/02/2020 Submitted by: NEGRO POMPA Location: [facility] Diagnostic interpretation performed at [facility], [address] [place] [address]. [place] Number: [id number] [facility] HOSPon 04-19-2020 HOSP Patient:Nany Muir MRN: [...] notes entered within the past 30 days [facility] Provider Letteron 11-21-2019 Provider Letter (Inserted Image. Patricia ble to display) November 21, 2019 ANGELIKA MUIR [address] [place] [id number] ANGELIKA MUIR 1940 Dear Angelika, You missed [...] Sincerely, [facility]/Dr De La Cruz Normal [facility] Ambulatory Clinical Summaryo n 10-27-2019 Ambulatory Clinical Summary {[id number] Normal [facility] Patient Educationon 10-24-19 Patient Education Family Medicine [...] bladder worse. Your healthcare provider or a marine mammal trainer can explain ways to change what you [...] Document Reviewed: 01/02/2010 ExitCare? Patient Information ?[address] [facility] Urology Office/Clinic Noteon 10-24-2019 Urology Office/Clinic [...] in 1 month. Ordered: PVR urine/bladder capacity/[place] 14634 Urnls Dip Stick Auto w/o Microscopy POC 45953 2. 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 De La Cruz Follow-up With When Contact Information Jono Faust MD, Bandar Devine In 1 month [facility] [address] , [place] [address]- Additional Instructions: w/ PVR Patient Education Overactive Bladder, Adult I, Lida Tate, personally scribed for Dr. De La Cruz [...] Protein Urine Dipstick: Negative (10/24/19 14:03:00) Specific [place] Urine Dipstick: 1.025 (10/24/19 14:03:00) Urine Appearance Urine Dipstick: Clear (10/24/19 14:03:00) Urine Color Urine Dipstick: Yellow (10/24/19 14:03:00) Urobilinogen Urine Dipstick: Normal 0.2-1 EU/dl (10/24/19 14:03:00) pH Urine Dipstick: 5.5 (10/24/19 14:03:00) Diagnostic Results PVR was reviewed at 85 cc. Urinalysis shows no infection. Normal [facility] Comment on above: Result Comment: Electronically Signed By : Jono Faust MD, Bandar Devine\.br\Date and Time Signed: 10/24/19 14:59 EDT\.br\Electronically Co-Signed By: Lida Ybarra MA\.br\Date and Time Co-Signed: 10/24/19 14:56 EDT Ambulatory Clinical Summaryo n 08-24-2019 Ambulatory Clinical Summary {[id number] Normal [facility] Reminderson 04-24-2019 Reminders - From: Kristen Rivero To: EU - Clinical; Sent: 04/04/2019 15:20:13 EST Show up: 04/24/2019 07:00:00 EST Subject: Urodynamics Report Due Date/Time: 04/24/2019 07:00:00 EST Reminder/Recall Show Dr. De La Cruz results, patient may need scheduled for Cysto/TVT sling Test: Urodynamics Test being done 04/20/19 @ [facility] From: Fili Morgan MA ( - Clinical) To: Jono Faust MD, Bandar Devine; Sent: 04/24/2019 08:02:48 EST Show up: 04/24/2019 08:02:00 EST Subject: RE: Urodynamics Report Please review Urodynamics report. Per message, Pt may need scheduled for Cysto/ TVT Normal [facility] Coding Summary.on 04-21-2019 Coding Summary. CODING DATE: 020 FINAL [facility] STATUS: Home (Routine DC) PAYOR: Medicare APC [...] Julissa Garces Date Saved: 04/21/2019 01:56 pm [facility] Patient Summaryon 02-02-2019 Patient Summary PATIENT DISCHARGE IN STRUCTIONS If you are having an emergency and are not able to reach your physician, CALL 911 or go to the nearest emergency room and take this document with you. [facility] 02/02/19 09:32 [address] [place] [address] PATIENT INFORMATION Name: ANGELIKA MUIR Judy Address: [address] [place] [id number] Age: 78 Years Phone: [phone] : 1940 12:00 Sex: Female Race: White Ethnicity: Not Hispan/Lat Admitted From: Clinic or [facility] Medical Service: Orthopedic Surgery Nurse Unit/Bed: 2NAKI 0219-01 Admit Date: 01/30/2019 05:59 PCP: Eduardo Sharma MD PHYSICIANS INVOLVED WITH CARE Attending Physicians: Rancho SIEGEL , Amrik Sutton - Orthopaedic Surg Admitting Physician: Rancho SIEGEL , Amrik Sutton - Orthopaedic Surg Primary Care Physician:Edith SIEGEL , Eduardo Hedrick,Internal Medicine, - Consults: Rosibel SIEGEL , Elbert Kim - Internal Medicine RAMÍREZ Rod - Internal Medicine FOLLOW-UP APPOINTMENTS: Provider: Specialty: Address: Date: Amrik Vickers MD Orthopaedic Surg [address] [facility] [address] (1) Six Weeks Comment: Call for an Appointment Provider: Specialty: Address: Date: Eduardo Sharma MD Internal Medicine [address] [place], [place] [phone] (1) Follow-up as needed Provider: Specialty: Address: Date: [facility]: [facility] [phone] Follow-up as needed ALLERGIES: No Known Medication [...] doses are changed, or new medications (including ygcc-rwk-gjzzvtz products) are added. 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 If you are in a mental health crisis, or having thoughts of suicide, please call the nationwide suicide hotline, anytime day or night, at 2-968-838-QKVD. Important information about accessing your health information through the [facility] patient portal If you initiated the self-registration process for [facility] during your stay, please check your personal email for an invitation to enroll in [facility] and complete the steps outlined in the email. If you would prefer to enroll while in the hospital, ask a member of your care team. We would be happy to assist you. If you have already enrolled in [facility], go to [email or web address] to login and access your health information. Thank you for choosing [facility]. PATIENT EDUCATION Fall Prevention in the Home [...] wet floors. ???Place frequently used items in yezq-gi-jpqsf places. ???If you need to reach for something above you, use a sturdy step stool that has a grab bar. ???Keep electrical cables out of the way. ???Do not use floor azeri or wax that makes floors slippery. If [...] include working with a physical therapist or animal attendants and trainers to improve your strength, balance, and endurance. This information is not intended to replace advice given to you by your health care provider. Make sure you discuss any questions you have with your health care provider. Document Released: 02/26/2003 Document Revised: 07/23/2015 Document Reviewed: 04/12/2015 [employer] Patient Education ?2016 [employer] Incentive Spirometer An incentive spirometer is [...] 07/19/2007 Document Revised: 03/29/2015 Document Reviewed: 10/15/2014 [employer] Patient Education ?2016 [employer]. Pain Medicine Instructions HOW CAN PAIN MEDICINE [...] enter a body of water?such as a ujrado, river, ocean, spa, or swimming pool?without an [...] liver damage. Acetaminophen is found in many peli-rhp-nbyevfl (OTC) and prescription medicines. If you are [...] 06/14/2001 Document Revised: 07/23/2015 Document Reviewed: 01/10/2015 [employer] Patient Education ?2016 [employer]. Preventing Constipation After Surgery Constipation is when [...] a bowel movement. ???Having hard, dry, or gxzyxn-jlal-sggcrq stools. ???Feeling full or bloated. ???Having pain in the lower abdomen. ???Not feeling relief after having a bowel movement. HOME CARE INSTRUCTIONS Diet ???Eat foods that have a lot of fiber. These include fruits, vegetables, whole grains, and beans. Limit foods high in fat and processed sugars. These include serbian fries, hamburgers, cookies, and candy. ???Take a [...] softener, laxative, or fiber supplement. ???Only take towx-wdi-xhamdmq or prescription medicines as directed by your [...] 07/03/2013 Document Revised: 03/29/2015 Document Reviewed: 07/03/2013 [employer] Patient Education ?2016 [employer] Venous Thromboembolism, Prevention A venous thromboembolism [...] 02/24/2010 Document Revised: 11/30/2012 Document Reviewed: 07/03/2015 [employer] Patient Education ?2016 [employer] VIRUSES OR BACTERIA: WHAT'S GOT YOU [...] PATIENT DISCHARGE INSTRUCTION Signature Page for: ANGELIKA MIUR Date/Time: 02/02/2019 09:32:22 A Clinician has explained the information on my discharge instructions and has provided me with a copy. My questions have been answered to my satisfaction. Patient Signature Date/Time Responsible Party ___ Date/Time Relationship to Patient Clinician Signature Date/Time Normal [facility] Basic Metabolic Panelon 01-20 Calcium [Mass/Vol] 8.4 mg/dL Low 8.5-10.6 [facility] Chloride [Moles/Vol] 105 mmol/L Normal 98-107 [facility] CO2 [Moles/Vol] 32 mmol/L Normal 21-32 [facility] Creatinine [Mass/Vol] 0.77 mg/dL Normal 0.55-1.02 [facility] Glucose [Mass/Vol] 108 mg/dL High 70-99 [facility] Potassium [Moles/Vol] 4.1 mmol/L Normal 3.5-5.1 [facility] Sodium [Moles/Vol] 141 mmol/L Normal 136-145 [facility] Urea nitrogen (BldV) [Mass/Vol] 20 mg/dL High 7.0-18.0 [facility] Urea nitrogen/Creatin ine [Mass ratio] 26 mg/mg Normal [facility] Basic Metabolic Panelon 01-20 Calcium [Mass/Vol] 8.4 mg/dL Low 8.5-10.6 [facility] Chloride [Moles/Vol] 105 mmol/L Normal 98-107 [facility] CO2 [Moles/Vol] 31 mmol/L Normal 21-32 [facility] Creatinine [Mass/Vol] 0.86 mg/dL Normal 0.55-1.02 [facility] Glucose [Mass/Vol] 101 mg/dL High 70-99 [facility] Potassium [Moles/Vol] 4.1 mmol/L Normal 3.5-5.1 [facility] Sodium [Moles/Vol] 140 mmol/L Normal 136-145 [facility] Urea nitrogen (BldV) [Mass/Vol] 21 mg/dL High 7.0-18.0 [facility] Urea nitrogen/Creatin ine [Mass ratio] 24 mg/mg Normal [facility] Anesthesia Recordon 01-31-20 Anesthesia Record Patient: ANGELIKA MUIR MRN: [id number] Age: 78 years Sex: Female : 1940 Associated Diagnoses: None Author: Nadine Barrera MD Procedure Time Out Thayer Protocol: patient identity verified, site verified, side verified, procedure to be done verified, patient position verified. REGIONAL ANESTHESIA PROCEDURE Procedure date and begin time: See nurses notes. Procedure date and end time: See nurses notes. Performed by: Nadine Barrera MD. Assisted by: no occupational therapist assistants. Informed consent: signed by patient. Technique: Peripheral [...] Diagnosis: M25.561 M17.11 Knee Pain . Normal [facility] Anesthesia Record Patient: ANGELIKA MUIR MRN: [id number] Age: 78 years Sex: Female : 1940 Associated Diagnoses: None Author: Nadine Barrera MD Procedure Time Out Thayer Protocol: patient identity verified, site verified, side verified, procedure to be done verified, patient position verified. REGIONAL ANESTHESIA PROCEDURE Procedure date and begin time: See nurses notes. Procedure date and end time: See nurses notes. Performed by: Nadine Barrera MD. Assisted by: no occupational therapist assistants. Informed consent: signed by patient. Technique: Peripheral [...] M25.561 M17.11 Knee Pain OA . Normal [facility] Basic Metabolic Panelon 01-20 Calcium [Mass/Vol] 9.0 mg/dL Normal 8.5-10.6 [facility] Chloride [Moles/Vol] 106 mmol/L Normal 98-107 [facility] CO2 [Moles/Vol] 29 mmol/L Normal 21-32 [facility] Creatinine [Mass/Vol] 0.84 mg/dL Normal 0.55-1.02 [facility] Glucose [Mass/Vol] 105 mg/dL High 70-99 [facility] Potassium [Moles/Vol] 3.7 mmol/L Normal 3.5-5.1 [facility] Sodium [Moles/Vol] 143 mmol/L Normal 136-145 [facility] Urea nitrogen (BldV) [Mass/Vol] 23 mg/dL High 7.0-18.0 [facility] Urea nitrogen/Creatin ine [Mass ratio] 27 mg/mg Normal [facility] OR Nursingon 01-30-2019 OR Nursing Normal [facility] PACU I Nursingon 01-30-2019 PACU I Nursing CO NA PACU I Nursing Record Summary Primary Physician: Amrik Vickers MD Finalized Date/Time: 01/30/19 12:48:37 Pt. Name: JOSEANGELIKA/Sex: 1940 Female Med Rec #: [id number] Physician: Amrik Vickers MD Financial #: [id number] Pt. Type: I Room/Bed: [facility] Admit/Disch: 01/30/19 05:59:00 - Institution: CO NA OR Main PACU I Case Times Entry 1 In PACU I 01/30/19 10:05:00 Ready for PACU I 01/30/19 12:04:00 Discharge Discharge from PACU 01/30/19 12:04:00 PACU I Discharge NA I Delay Reason Last Modified By: Ana Rosas RN 01/30/19 12:48:23 CO NA OR Main PACU I Case Attendees Entry 1 Case Attendee Ta EUCEDA , Wiliam A Role Performed RN Last Modified By: Ana Rosas RN 01/30/19 12:48:35 Finalized By: Ana Rosas RN Document Signatures Signed By: Ana Rosas RN 01/30/19 12:48 Normal [facility] PreOp Nursingon 01-30-2019 PreOp Nursing CO NA PreOp Nursing Record Summary Primary Physician: Amrik Vickers MD Finalized Date/Time: 01/30/19 09:02:48 Pt. Name: TRAN MUIRPAOLA Nayak/Sex: 1940 Female Med Rec #: [id number] Physician: Amrik Vickers MD Financial #: [id number] Pt. Type: I Room/Bed: / Admit/Disch: 01/30/19 05:59:00 - Institution: CO NA OR PreOp Case Times Entry 1 PreOp Case Times In Room Time 01/30/19 06:51:00 Out Room Time 01/30/19 08:32:00 Last Modified By: Chelsy Batista RN 01/30/19 09:02:45 CO NA OR PreOp Case Attendees Entry 1 Case Attendee Alexandra EUCEDA , Evaristo Santos RN Last Modified By: Evaristo Morris RN 01/30/19 07:11:35 Finalized By: Chelsy Batista RN Document Signatures Signed By: Chelsy Batista RN 01/30/19 09:02 Normal [facility] Basic Metabolic Panelon 10-3 Calcium [Mass/Vol] 9.0 mg/dL Normal 8.5-10.6 [facility] Chloride [Moles/Vol] 103 mmol/L Normal 98-107 [facility] CO2 [Moles/Vol] 31 mmol/L Normal 21-32 [facility] Creatinine [Mass/Vol] 0.78 mg/dL Normal 0.55-1.02 [facility] Glucose [Mass/Vol] 90 mg/dL Normal 70-99 [facility] Potassium [Moles/Vol] 4.1 mmol/L Normal 3.5-5.1 [facility] Sodium [Moles/Vol] 142 mmol/L Normal 136-145 [facility] Urea nitrogen (BldV) [Mass/Vol] 19 mg/dL High 7.0-18.0 [facility] Urea nitrogen/Creatin ine [Mass ratio] 24 mg/mg Normal [facility] CBC with Differentialon 10-3 Basophils (Bld) [#/Vol] 0.0 thou/mcL Normal 0.0-0.2 [facility] Basophils/100 WBC (Bld) 0.8 % Normal 0-3 [facility] Differential cell count method Nom (Bld) AUTOMATED DIFFERENTIAL Normal [facility] Eosinophils (Bld) [#/Vol] 0.1 thou/mcL Normal 0.0-0.4 [facility] Eosinophils/100 WBC (Bld) 2.0 % Normal 0-7 [facility] Erythrocyte distribution width (RBC) [Entitic vol] 14.4 % Normal 11.7-15.0 [facility] Hematocrit (Bld) [Volume fraction] 36.7 % Normal 34.0-50.0 [facility] Hemoglobin (Bld) [Mass/Vol] 12.1 g/dL Normal 11.5-17.0 [facility] Lymphocytes (Bld) [#/Vol] 1.3 thou/mcL Normal 0.7-4.5 [facility] Lymphocytes/100 WBC (Bld) 26.0 % Normal 14-46 [facility] MCH (RBC) [Entitic mass] 29.2 Picograms Normal 27.0-34.0 [facility] MCHC (RBC) [Mass/Vol] 32.9 g/dL Normal 32.0-36.0 [facility] MCV (RBC) [Entitic vol] 88.7 fL Normal 80-98 [facility] Monocytes (Bld) [#/Vol] 0.4 thou/mcL Normal 0.1-1.0 [facility] Monocytes/100 WBC (Bld) 8.5 % Normal 4-13 [facility] Neutrophils (Bld) [#/Vol] 3.1 thou/mcL Normal 1.5-7.8 [facility] Neutrophils/100 WBC (Bld) 62.7 % Normal 40-74 [facility] Platelet mean volume (Bld) [Entitic vol] 8.4 fL Normal 7.5-11.2 [facility] Platelets (Bld) [#/Vol] 214 thou/mcL Normal 140-415 [facility] RBC (Bld) [#/Vol] 4.13 x(10)6/mcL Normal 3.80-5.60 [facility] WBC (Bld) [#/Vol] 5.0 thou/mcL Normal 4.0-10.5 [facility] Culture Methicillin Resistan t Staph aureuson 01-19-2019 MRSA isol Org specific cx Ql (Unsp spec) [facility] Microbiology PROCEDURE: Culture Methicillin Resistant Staph aureus SOURCE: Nasal Swab BODY SITE: COLLECTED DATE/TIME: 01/19/2019 15:10 EDT RECEIVED DATE/TIME: 01/19/2019 15:10 EDT START DATE/TIME: 01/19/2019 15:10 EDT FREE TEXT SOURCE: NASAL SWAB-. INTERFACED REPORTS Final Report [] Verified Date/Time/Personnel: 01/20/2019 21:24 EDT CONTRIBUTOR_SYSTEM, CO_PN *MRSA SCREEN* NEGATIVE FOR METHICILLIN(OXACILLIN) RESISTANT STAPHYLOCOCCUS AUREUS. Normal [facility] Comment on above: Performed By: #### [id number] #### [id number] [place], [place] Partial Thromboplastin Time (aPTT)on 01-19-2019 aPTT Coag (PPP) [Time] 31 Sec Normal 23.2-34.6 [facility] Prothrombin Timeon 201 9 INR Coag (Bld) [Relative time] 1.0 {INR} Normal [facility] Comment on above: Result Comment: DURING THE INDUCTION PHA SE OF ORAL ANTICOAGULATION, THE INR MAY NOT REFLECT THE ANTICOAGULANT STATUS OF THE PATIENT. THERAPEUTIC RANGES FOR INR'S ARE: MOST CLINICAL SITUATIONS: INR 2.0-3.0 MECHANICAL PROSTHETIC VALVES: INR 2.5-3.5 CRITICAL: INR 5.0 PT Coag (PPP) [Time] 12.6 Sec Normal 11.9-14.6 [facility] XR C-Spine 4-5 Viewson 01-19 XR C-Spine [...] disease, notably advanced at C5-C6 and C6-C7. [place] thanks you for the opportunity to care for your patient. Workstation ID: [id number] FINAL REPORT Dictated By: Fritz Styles MD 01/19/2019 21:13 Assigned Physician: Fritz Styles MD Reviewed and Electronically Signed By: Fritz Styles MD 01/19/2019 21:17 Transcribed by: JESSIE 01/19/2019 21:13 Technologist: KAYLIN Gomes [facility] Culture Anaerobicon 10-19-19 19 Bacteria identified Anaer cx Nom (Unsp spec) [facility] Microbiology PROCEDURE: Culture Anaerobic SOURCE: Joint Fl [...] EDT CONTRIBUTOR_SYSTEM, CO_PN CULTURE IN PROGRESS Normal [facility] Comment on above: Performed By: #### [id number] #### [address] [place], [place] Culture Body Fluid + Suscept ibility + Smear Directon 10-18-2018 Bacteria identified Sterile body fluid culture Nom (Unsp spec) [facility] Microbiology PROCEDURE: Culture Body Fluid + Susceptibility [...] NO EPITHELIALS SEEN, NO ORGANISMS SEEN Normal [facility] Comment on above: Performed By: #### [id number] #### [address] [place], [place] Culture Funguson 10-18-2018 Fungus identified Cx Nom (Unsp spec) [facility] Microbiology PROCEDURE: Culture Fungus SOURCE: Joint Fl [...] WILL BE HELD FOR 1-4 WEEKS Normal [facility] Comment on above: Performed By: #### [id number] #### [facility] [address] [place], [place] XR SHOULDER LEFT MIN 2 VIEWS [...] I have reviewed andapproved this report. Normal [facility] Cardiovascular Lab Reporton 11-07-2016 Cardiovascular Lab Report [facility] Patient Name: Angelika Muir [facility] MR #: [id number] Physician: Ankur Bhakta M.D.Medicine Service Date: 11/06/2016Division of Birthdate: 1940Cardiology Room #: CCAdult [facility]ovascularD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 Isaw her in our [place] office. She has had a complete evaluation [...] 11/06/2016/03:29 P/Ankur France M.D.Date Trans: 11/07/2016 06:05 A/Tyrese_JN:[id number]: Eduardo Sharma M.D. [address] [place] [address] [place] [facility] Vital Signs Date Time Vital Sign Value Performing Clinician Facility 03-24-2021 15:45-0500 Body height 166.37 cm [facility] Other [facility] Other 03-24-2021 15:45-0500 Body mass index (BMI) [Ratio] 35.23 kg/m2 [facility] Other [facility] Other 03-24-2021 15:45-0500 Body temperature 99.4 [degF] [facility] Other [facility] Other 03-24-2021 15:45-0500 Body weight 97.52 kg Yolanda Schwerer Other [facility] Other 03-24-2021 15:45-0500 Diastolic blood pressure 78 mm[Hg] Yolanda Schwerer Other [facility] Other 03-24-2021 15:45-0500 SaO2% (BldA) [Mass fraction] 96 % Yolanda Schwerer Other [facility] Other 03-24-2021 15:45-0500 Systolic blood pressure 132 mm[Hg] Yolanda Schwerer Other [facility] Other Encounters Encounter Date Encounter Type Care Provider Facility Start: 04-19-2023 End: 04-20-2023 ambulatory Tony Holguin MD Facility: [facility] Start: 04-02-2023 End: 04-02-2023 ambulatory [facility] Start: 09-07-2022 End: 09-07-2022 ambulatory Gennaro Cheng Facility:[facility] Start: 05-25-2022 End: 05-26-[address] SARIKA MUHAMMAD . Facility: Start: 07-15-2021 End: 07-15-2021 ambulatory Yolanda Schwerer Other [facility] Other Start: 07-15-2021 Telephone encounter Yolanda Schwerer [facility] Start: 04-28-2021 End: 04-28-2021 ambulatory Yolanda Schwerer Other [facility] Other Start: 04-28-2021 Telephone encounter Yolanda Schwerer [facility] Start: 04-03-2021 End: 04-03-2021 ambulatory Yolanda Schwerer Other [facility] Other Start: 04-03-2021 Telephone encounter Yolanda Schwerer [facility] [place] Start: 03-24-2021 End: 03-24-2021 ambulatory Yolanda Schwerer Other [facility] Other Start: 03-24-2021 Office outpatient visit 15 minutes Yolanda Schwerer [facility] [place] Start: 03-20-2021 End: 03-20-2021 ambulatory Yolanda Schwerer Other [facility] Other Start: 03-20-2021 Telephone encounter Yolanda Schwerer [facility] Start: 03-03-2021 End: 03-03-2021 ambulatory Yolanda Schwerer Other [facility] Other Start: 03-03-2021 Telephone encounter Yolanda Schwerer [facility] Start: 07-21-2017 Ambulatory JOSE LUIS LIZAMA [facility] Start: 11-06-2016 End: 11-07-2016 Ambulatory ANKUR FRANCE Facility:[facility] Immunizations Immunization Date Immunization Notes Care Provider Fa edyta 07-05-2020 COVID-19 Vaccine Pfi zer - Documentation Purposes Only Yolanda Schwerer Other [facility] Other 06-07-2020 COVID-19 Vaccine Pfi zer - Documentation Purposes Only Yolanda Schwerer Other [facility] Other 04-30-2018 zoster vaccine recombinant Yolanda Schwerer Other [facility] Other 01-06-2018 zoster vaccine recombinant Yolanda Schwerer Other [facility] Other 03-19-2017 pneumococcal conjuga te vaccine, 13 valent Yolanda Schwerer Other [facility] Other 04-27-2016 pneumococcal polysaccharide vaccine, 23 valent Yolanda Schwerer Other [facility] Other 12-18-2014 pneumococcal polysaccharide vaccine, 23 valent Yolanda Schwerer Other [facility] Other 12-18-2014 zoster vaccine, live Yolanda Schwerer Other [facility] Other 02-11-2009 zoster vaccine, live Yolanda Schwerer Other [facility] Other Payers Date Payer Category Payer Medicare 2023 Unknown 2022 Self-pay 2003 Medicare [id number] 2003 Medicare [id number] 1959 Medicare [id number] 1959 Unknown [id number] 2. [id number] 1940 Unknown [id number] 1940 Unknown [id number] [id number] [id number] 1940 Unknown [id number] [id number]. [id number] Medicare [id number] 2.1 [id number] Unknown [id number] [id number] [id number] Social History Date Type Detail Facility Unknown if ever smoked [facility] Other Sex Assigned At Sex Assigned At Bir th [facility] Other Clinical Note 05-24-2022 Note Date & [...] authenticated by: CAMILO ARNOLD Date: 2022-05-24 19:59 [facility] Evaluation note 03-24-2021 Note Date & Type Note Facility 03-24-2021 Evaluation note Encounter Date Diagnosis Assessment Notes Mar, Skin rash (ICD-10 - R21) i think eczema, will do clobetasol she already has this. will continue on lotramin. she will call in a few days if not improved. [facility] Other Progress note 05-30-2020 Note Date & Type Note Facility 05-30-2020 Note HNO ID: [id number] Author: Negro Pompa Service: ? Author Type: Physician Type: Progress Notes Filed: 05/30/2020 6:55 PM Note Text: [facility] FOR FEMALE PELVIC [...] and concerns were addressed. Negro Pompa MD [facility] Clinical Note 04-18-2020 Note Date & Type Note Facility 04-18-2020 Note Patient Outreach (CO OCC3) ANGELIKA MUIR ([id number]) 1940 F Date Time Provider Department 04/18/20 PENNY RIBEIRO COOCC3 During your visit today, we recorded the following information about you: Allergies As of Date: 04/18/2020 Noted Allergy Reaction TAPE (ADHESIVE TAPE (ROSINS)) 06/28/2012 2 - Rash Date Reviewed: 01/09/2020 Reviewed by: Niru Cunningham - Fully Assessed Order(s):SARS-COVID VACCINE 1ST DOSE APPT [[id number]] Order #: [id number] FUTURE Prescriptions as of 04/18/2020 Sig: SERTRALINE [...] Encounter Status:Closed by EPIC, PRODUSER on 04/22/20 [facility] Evaluation note Note Date & Type Note Facility Evaluation note No Information [facility] [employer] Other History general Narrative - Reported Note [...] SHOULDER X2 Hospitalization History see surgical hx [facility] [employer] Other Summary Purpose Family History No Family [...] Assessments Note Patient: ANGELIKA MUIR MR N: [id number] Age: 78 years Sex: Female : 1940 Associated Diagnoses: None Author: Elbert Gleason MD Assessment Assessment Diagnosis: Osteoarthritis (FOR64-JS M17.11, 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 Right TKA. Dr. Vickers. [...] Pain is currently described as intermittent but qdxqsoul-im-wdqzol, particularly with activity. Symptoms have failed to respond to more conservative measures, and she now presents for surgical intervention. Please see below regarding the status of active medical conditions and assessment and plan for preoperative medical risk stratification. Medical Illnesses: 1. Osteoarthritis affecting (more content not included)... Note CLINICAL SUMMARY Please take this summary document to your follow up appointments. [facility] 02/02/19 09:32 [address] [place]. [address] PATIENT INFORMATION Name: ANGELIKA MUIR [address]: [address] [place] [id number] Age: 78 Years Phone: [phone] : 1940 12:00 MRN: [id number] Sex: Female Race: White Ethnicity: Not Hispan/Lat Admitted From: Clinic or [facility] Medical Service: Orthopedic Surgery Nurse Unit/Bed: (MI) 2N 0219-01 Admit Date: 01/30/2019 05:59 PCP: Eduardo Sharma MD PHYSICIANS INVOLVED WITH CARE Attending Physicians: Rancho SIEGEL , Amrik Sutton - Orthopaedic Surg Admitting Physician: Rancho SIEGEL , Amrik Sutton - Orthopaedic Surg Primary Care Physician:Eduardo Sharma MD,Internal Medicine, - Consults: Elbert Gleason MD - Internal Medicine RAMÍREZ Rod (more content not included)... Note Patient: ANGELIKA MUIR MR N: [id number] Age: 78 years Sex: Female : 1940 Associated Diagnoses: None Author: Nate [facility]IE[facility], [facility] Comments Supervising Physician Comments Documentation By: Consulting [...] (more content not included)... Note HNO ID: [id number] Author: Cheryle jones (Az) Brenden Service: ? 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 Anesthesiologist: Ihsan Gamino CAA: Ankur Wilcox (Aa) Indications and Patient Condition Preoxygenated: yes Patient position: sniffing Indications for airway management: anesthesia anesthesia circuit Method: asleep Final Airway Details Final airway type: supraglottic airway Final Supraglottic Airway: IGEL Size 4 Seal Adequate: yes SIGNATURE: AZ Gonzales PATIENT NAME: Angelika Muir DATE: May 01, 2020 TIME: 3:33 PM CSN: [id number] Note HNO ID: [id number] Author: Ariana kaplan (aMrtina) Victor Hugo Service: Urology Author Type: Resident Type: Brief Op Note Filed: 05/01/2020 4:09 PM Note Text: BRIEF OPERATIVE / PROCEDURE NOTE LOG ID: [id number] SURGERY/PROCEDURE DATE: 05/01/2020 INCISION/PROCEDURE START TIME: 3:28 PM INCISION CLOSE/PROCEDURE END TIME: 4:05 PM SURGEON(S)/PROCEDURALIST(S) AND METHANE GAS COLLECTION SYSTEM OPERATOR(S): Surgeon(s) and Role: * Negro Pompa - [...] 01, 2020 TIME: 4:07 PM PAGER/CONTACT #: [phone] (more content not included)... Hospital Course Note CLINICAL SUMMARY Please take this summary document to your follow up appointments. [facility] 02/02/19 09:32 [address] [place]. [address] PATIENT INFORMATION Name: ANGELIKA MUIR Address: [address] [place] [id number] Age: 78 Years Phone: [phone] : 1940 12:00 MRN: [id number] Sex: Female Race: White Ethnicity: Not Hispan/Lat Admitted From: Clinic or [facility] Medical Service: Orthopedic Surgery Nurse Unit/Bed: ([place]) [facility] 0219-01 Admit Date: 01/30/2019 05:59 PCP: Eduardo Sharma MD PHYSICIANS INVOLVED WITH CARE Attending Physicians: Rancho SIEGEL , Amrik Sutton - Orthopaedic Surg Admitting Physician: Rancho SIEGEL , Amrik Sutton - Orthopaedic Surg Primary Care Physician:Eduardo Sharma MD,Internal Medicine, - Consults: Rosibel SIEGEL , Elbert Kim - Internal Medicine RAMÍREZ Rod (more content not included)... Procedure Findings Note HNO ID: [id number] Author: Cheryle Wilcox (Aa) Service: ? 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 Anesthesiologist: Ihsan Gamino CAA: Ankur Wilcox (Aa) Indications and Patient Condition Preoxygenated: yes Patient position: sniffing Indications for airway management: anesthesia anesthesia circuit Method: asleep Final Airway Details Final airway type: supraglottic airway Final Supraglottic Airway: IGEL Size 4 Seal Adequate: yes SIGNATURE: AZ Gonzales PATIENT NAME: Angelika Muir DATE: May 01, 2020 TIME: 3:33 PM CSN: [id number] Note HNO ID: [id number] Author: Ariana kaplan (Martina) Victor Hugo Service: Urology Author Type: Resident Type: Brief Op Note Filed: 05/01/2020 4:09 PM Note Text: BRIEF OPERATIVE / PROCEDURE NOTE LOG ID: [id number] SURGERY/PROCEDURE DATE: 05/01/2020 INCISION/PROCEDURE START TIME: 3:28 PM INCISION CLOSE/PROCEDURE END TIME: 4:05 PM SURGEON(S)/PROCEDURALIST(S) AND METHANE GAS COLLECTION SYSTEM OPERATOR(S): Surgeon(s) and Role: * Negro Mendezmurphy - Primary No Additional Staff SURGERY/PROCEDURE(S): Release [...] 01, 2020 TIME: 4:07 PM PAGER/CONTACT #: [phone] (more content not included)... Note Patient: ANGELIKA MUIR MR N: [id number] Age: 78 years Sex: Female : 1940 [...] section and content) DATE CREATED AUTHOR 09/09/2017 [facility] DATE CREATED AUTHOR AUTHOR'S ORGANIZ ATION 09/15/2017 [facility] DATE CREATED AUTHOR AUTHOR'S ORGANIZ ATION 02/06/2019 [facility] DATE CREATED AUTHOR AUTHOR'S ORGANIZ ATION 11/22/2019 [facility] DATE CREATED AUTHOR AUTHOR'S ORGANIZ ATION 05/08/2020 [facility] DATE CREATED AUTHOR AUTHOR'S ORGANIZ ATION 04/05/2021 [facility] DATE CREATED AUTHOR AUTHOR'S ORGANIZ ATION 05/31/2022 [facility] DATE CREATED AUTHOR AUTHOR'S ORGANIZ ATION 09/21/2022 [facility] DATE CREATED AUTHOR AUTHOR'S ORGANIZ ATION 04/04/2023 [facility] DATE CREATED AUTHOR AUTHOR'S ORGANIZ ATION 04/22/2023 [facility] REASON FOR VISIT (unrecogniz ed section and content) [facility] [place]wormNeeds an Appt NO SHOW APPTrefillNo Information FOR [...] BE BASED ON THE PRIMARY CLINICAL RECORDS. [employer] [facility]. provides no warranty or guarantee of the accuracy or completeness of information in this document.
--- NOTE | 2023-05-10 13:32 | P.CN_ITS ---
Consult Note: HPI Data of Consult Patient: known to practice within the last 3 years Consult date: 05/10/23 Requesting Physician: Tony Holguin MD Primary Care Provider: FRANKI CHAVES Consult Narrative Reason for consult: low back pain Narrative: 83yof who presents for assessment. continues to have significant low back pain that is worsened with ambulation. 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 continues in provider directed home exercise program for >6 weeks, with minimal benefit. denies adverse med side effects. cc:: CC: Tony Holguin MD Review of Systems ROS Status of ROS 10 or more systems reviewed and unremark able except as noted in history and below Meds Home Medications and Allergies Home Medications Medication Instructions Recorded Confirmed Type prednisone 5 mg tablet 20 mg PO DAILY 02/09/23 04/19/23 History pregabalin 50 mg capsule (Lyrica) 50 mg PO DAILY 04/19/23 04/19/23 History Allergies Allergy/AdvReac Type Severity Reaction Status Date / Time No Known Drug Allergies Allergy Verified 11/05/22 14:34 Exam Narrative Exam Narrative: Psych-alert and oriented x 3. Attentive and appropriate, constitutionally normal, displays normal mood and affect per situation.? There are no obvious deficits in memory, reasoning, or intellect.? Skin-no obvious rashes, bruising, erythema noted to the patient's area of pain. Extremities- extremities are warm with minimal edema and palpable pulses. Lumbar-no significant tenderness to palpation noted in the lumbar spine and paraspinal musculature.? Pain is elicited with extension, and lateral rotation of the lumbar spine. Range of motion is slightly diminished with these motions due to pain. Facet loading maneuvers are positive bilaterally and do appear to be concordant with the patient's normal complaints of pain.? Coordination remains intact.? Gait remains non-antalgic. Assessment and Plan Assessment and Plan (1) Lumbar spondylosis: Plan 83yof who presents for assessment. failed conservative measures, as noted. imaging reviewed, as noted. given symptoms and imaging, prudent to attempt bilatera diagnostic l4-5, l5-s1 mbb under fluoroscopic guidance with intention of proceeding to rfa. she is in agreement. meds reviewed, no changes. follow up after procedure.
== END 2023-05-10 12:37 | disposition home or self-care (01) ==
LOC: PM 12:37
PROVIDERS: PCP Family Medicine; Visit Provider Anesthesiology
DX: M47.816 Spondylosis without myelopathy or radiculopathy, lumbar region (principal)
CPT/HCPCS: G0463

== ENCOUNTER 2023-05-24 08:13 | Day surgery (SDC) | payer MEDICARE, OTHER, SELFPAY ==
--- OUTSIDE RECORDS SUMMARY | 2023-05-24 08:16 | XMS_ITS | CCD ---
Author Name Unknown Address [address] [place] [address] Organization [facility] Care Team Providers Care Medical Staff Assistant Name Role Phone JOSE LUIS LIZAMA Unavailable Unavailable SELF, SELF Unavailable Unavailable EDUARDO ROSE Unavailable Unavailable LIZAMA, JOSE LUIS Y Unavailable Unavailable LIZAMAJOSE LUIS Y Unavailable Unavailable EDUARDO ROSE Unavailable Unavailable ANKUR FRANCE Unavailable Unavailable ANKUR FRANCE Unavailable Unavailable EDUARDO ROSE Unavailable Unavailable EDUARDO ROSE Unavailable Unavailable Yolanda Calvo Unavailable SABINA ., DR SARIKA Osullivan Attending Unavailable MUHAMMAD ., DR SARIKA Osullivan Admitting Unavailable MUHAMMAD ., DR SARIKA Osullivan Consulting Unavailable MISC, DR GARVEY Primary Care Unavailable MISC, DR GARVEY Consulting Unavailable ZIESTER, DR IHSAN Lane Consulting Unavailable ESTELA CHUN Consulting Unavailable JORY MCMILLAN Consulting Unavailable CAMILO ARNOLD Consulting Unavailable JELANI MAR Consulting Unavailable ALVINO BENITEZ Consulting Unavailable DARMARIA ELENA BURROUGHS Consulting Unavailable SISTER, WALI Consulting Unavailable Gennaro Cheng Attending Unavailable Gennaro Cheng Admitting Unavailable Yolanda Calvo Primary Care Unavailable Otis Chaves DO Primary Care Provider [phone] VERONICA CHAHAL Attending Unavailable OTSI CHAVES Referring Unavailable OTIS CHAVES Primary Care Unavailable Chelsie SIEGEL, Tony Rodríguez Attending Unavailable Chelsie SIEGEL, Tony Rodríguez Attending Unavailable Allergies Allergy Classification Reported Allergen(s) Allergy Type Date of Onset Reaction(s) Facility (1 source) 08260,00; Translations: [36519,00] Propensity to adverse reactions (disorder) 9 [facility] (3 sources) Adhesive agent; Translations: [ADHESIVE] Propensity to adverse reactions to drug 3 Rash [facility] (3 sources) Fludrocortisone ; Translations: [FLUDROCORTISON E] Drug Allergy 2 Other (See Comments) [facility] (3 sources) Other; Translations: [OTHER] Propensity to adverse reactions 6 [facility] Medications Current Medications Medication Drug Class(es) Dates [...] day, PRN for 30 day(s) Nov, Active gabapentin 100 mg oral capsule (1 source) Anti-epileptic Agent Start: 04-19-2023 take 1 capsule by mouth three times daily gabapentin (NEURONTIN) 100 mg capsule Indications: Bilateral hip pain Take 1 capsule (100 mg total) by mouth 3 (three) times a day. 90 capsule 2 04/19/2023 Active Start: 04-19-2023 take 1 capsule by mo [facility] three times daily gabapentin (NEURONTIN) 100 mg capsule Indications: Bilateral hip pain Take 1 capsule (100 mg total) by mouth 3 (three) times a day. 90 capsule 2 04/19/2023 Active 24 hr metoprolol succinate 25 mg [...] 1 application Externally Twice a day Active naproxen 250 mg oral tablet (2 sources) Nonsteroidal Anti-inflammatory Drug take 1 tablet by mouth in the morning, then take 1 tablet by mouth at mealtime naproxen (NAPROSYN) 250 mg tablet Take 1 tablet (250 mg total) by mouth in the morning and 1 tablet (250 mg total) in the evening. Take with meals. 0 Active microencapsulated potassium chloride 20 meq extended release oral tablet (6 sources) take 1 tablet by mouth every twenty-four hours Klor-Con M20 20 MEQ 1 tablet with food Orally Once a day Active predniSONE 5 mg oral tablet (2 sources) Start: take 1 tablet by mouth in the morning predniSONE (DELTASONE) 5 mg tablet Take 1 tablet (5 mg total) by mouth in the morning. 0 03/24/2023 Active pregabalin 50 mg oral capsule (2 sources) Start: End: take 1 capsule by mouth in the morning pregabalin (LYRICA) 50 mg capsule Indications: PMR (polymyalgia rheumatica) ([facility]) Take 1 capsule (50 mg total) by mouth in the morning. 30 capsule 2 04/02/2023 04/19/2023 Discontinued (Patient Never Started This Medication) zolpidem tartrate 5 mg oral tablet (6 [...] Problem Classification Problem Date Documented Date Episodic/Chronic Asthma (2 sources) Asthma; Translations: [Unspecified asthma, uncomplicated] Onset: 11-28-2021 11-28-2021 Chronic Cancer of breast (2 sources) Malignant neoplasm of female breast; Translations: [Malignant neoplasm of unspecified site of unspecified female breast] Onset: 01-08-2012 11-28-2021 Chronic Chronic ulcer of skin (2 sources) Ulcer of lower extremity; Translations: [Non-pressure chronic ulcer of unspecified part of left lower leg limited to breakdown of skin] Onset: 06-26-2022 06-26-2022 Chronic Coronary atherosclerosis and other heart disease (3 sources) Atherosclerotic heart disease of [place] coronary artery without angina pectoris; Translations: [Coronary atherosclerosis] Onset: 01-13-2012 11-28-2021 Chronic Essential hypertension (8 sources) Essential hypertension; Translations: [Essential (primary) hypertension] Onset: 11-28-2021 11-28-2021 Chronic Genitourinary symptoms and ill-defined conditions (4 sources) Mixed urinary incontinence; Translations: [Mixed incontinence] Onset: 11-28-2021 11-28-2021 Chronic Osteoarthritis (13 sources) Osteoarthritis of right knee joint; Translations: [Unilateral primary osteoarthritis, right knee] Onset: 04-02-2023 Chronic Other aftercare (1 source) 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; Translations: [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 CURRENT DRUG THERAPY] Onset: 05-28-2022 Episodic Other connective tissue disease (2 sources) Polymyalgia rheumatica; Translations: [POLYMYALGIA RHEUMATICA] Onset: 05-28-2022 Chronic Other connective tissue disease (1 source) Presence of artificial hip joint, bilateral; Translations: [PRESENCE ARTIFICIAL HIP JOINT BILAT] Onset: 05-28-2022 Chronic Other connective tissue disease (4 sources) Polymyalgia rheumatica; Translations: [Polymyalgia rheumatica] Onset: 07-08-2022 04-02-2023 Chronic Other connective tissue disease (1 source) Muscle weakness (generalized); Translations: [MUSCLE WEAKNESS GENERALIZED] Onset: 05-28-2022 Episodic Other ear and sense organ disorders (2 sources) Sensorineural hearing loss, bilateral; Translations: [Sensorineural hearing loss, bilateral] Onset: 11-28-2021 11-28-2021 Chronic Other non-traumatic joint disorders (4 sources) Pain in right hip; Translations: [PAIN IN RIGHT HIP] Onset: 05-25-2022 Episodic Other non-traumatic joint disorders (2 sources) Hip pain; Translations: [Pain in right hip] 04-02-2023 Episodic Other non-traumatic joint disorders (1 source) Pain in left hip; Translations: [Pain in left hip] Onset: 04-02-2023 Episodic Residual codes; unclassified (2 sources) Obstructive sleep apnea syndrome; Translations: [Obstructive sleep apnea (adult) (pediatric)] Onset: 12-21-2007 11-28-2021 Chronic Residual codes; unclassified (6 sources) Insomnia; Translations: [Insomnia, unspecified] Episodic Residual codes; unclassified (1 source) Drug-induced delirium; Translations: [Disorientation, unspecified] 04-02-2023 Episodic Screening or history of mental health [...] Other Problems Problem Classification Problem Date Documented Date Episodic/Chronic Cancer of breast (1 source) Personal history of malignant neoplasm of breast; Translations: [PERSONAL HISTORY OF MALIGNANT NEOPLASM OF BREAST] Onset: 11-06-2016 Episodic Complications of surgical procedures or medical care (2 sources) Non-healing surgical wound; Translations: [Other complications of procedures, not elsewhere classified, initial encounter] Onset: 12-05-2021 Resolved: 03-11-2022 03-11-2022 Episodic Genitourinary symptoms and ill-defined conditions (2 sources) Urgent desire to urinate; Translations: [Urgency of urination] Onset: 11-28-2021 11-28-2021 Episodic Mood disorders (10 sources) Mood disorder; Translations: [Unspecified mood [affective] disorder] Onset: 12-21-2007 Resolved: 06-26-2022 06-26-2022 Chronic Mood disorders (2 sources) Mood disorders Onset: 12-23-2022 12-23-2022 Open wounds of extremities (2 sources) Open wound of left lower leg; Translations: [Unspecified open wound, left lower leg, initial encounter] Onset: 11-27-2021 11-27-2021 Episodic Other aftercare (1 source) 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; Translations: [CORRECTION (CURRENT) USE OF ASPIRIN] Onset: 11-06-2016 Episodic Other connective tissue disease (2 sources) History of right total knee replacement; Translations: [Presence of right artificial knee joint] Onset: 11-28-2021 Resolved: 06-26-2022 06-26-2022 Chronic Other connective tissue disease (2 sources) Tear of right rotator cuff; Translations: [Unspecified rotator cuff tear or rupture of right shoulder, not specified as traumatic] Onset: 06-03-2016 06-03-2016 Episodic Other connective tissue disease (2 sources) Trochanteric bursitis; Translations: [Trochanteric bursitis, left hip] Onset: 01-02-2022 01-02-2022 Episodic Other diseases of bladder and urethra (2 sources) Urethral stricture; Translations: [Unspecified urethral stricture, male, unspecified site] Onset: 11-28-2021 11-28-2021 Episodic Other diseases of veins and lymphatics (8 sources) Stasis dermatitis; Translations: [Venous insufficiency (chronic) (peripheral)] Onset: 11-28-2021 11-28-2021 Episodic Other nervous system disorders (2 sources) Abnormal gait; Translations: [Unspecified abnormalities of gait and mobility] Onset: 11-28-2021 11-28-2021 Episodic Other non-epithelial cancer of skin (6 sources) Malignant neoplasm of skin of lower leg; Translations: [Unspecified malignant neoplasm of skin of right lower limb, including hip] Onset: 11-28-2021 Resolved: 06-26-2022 01-02-2022 Episodic Other nutritional; endocrine; and metabolic disorders (2 sources) Severe obesity; Translations: [Morbid (severe) obesity due to excess calories] Onset: 06-26-2022 Resolved: 07-07-2022 07-07-2022 Chronic Other skin disorders (1 source) Rash and other nonspecific skin eruption Onset: 03-24-2021 Resolved: 03-24-2021 Episodic Swati-; endo-; and myocarditis; cardiomyopathy (except that caused by tuberculosis or sexually transmitted disease) (2 sources) Disorder of pericardium; Translations: [Disease of pericardium, unspecified] Onset: 01-08-2012 11-28-2021 Episodic Rheumatoid arthritis and related disease (2 sources) Rheumatoid arthritis; Translations: [Rheumatoid arthritis, unspecified] Onset: 06-03-2016 Resolved: 07-08-2022 07-08-2022 Chronic Syncope (6 sources) Syncope and collapse; Translations: [Syncope and collapse] Onset: 09-26-2012 11-28-2021 Episodic Unclassified (1 source) Condition Update; Translations: [Condition Update] Onset: 07-21-2017 Results Test Name Value Interpretation Reference Range Facility TAO Antinuclear Antibodieson 09-07-2022 Antinuclear Abs, IFA Positive Critically abnormal . [facility] Comment on above: Result Comment: Negative <1:80 Borderline 1:80 Positive >1:80 Performed By: #### T 4F, TSH3, CRP, CMP, ESR, CBC #### [facility] [address] Homogeneous Pattern 1:160 High . [facility] Comment on above: Result Comment: ICAP nomenclature: [id number] Performed By: #### T 4F, TSH3, CRP, CMP, ESR, CBC #### [facility] [address] Note 1 Normal . [facility] Comment on above: Result Comment: For [...] titers Nucleosomes, Histones Drug-induced SLE Speckled Sm, OLIVE PICKER, SCL-70, SLE,MCTD,PSS (diffuse form), SS-A/SS-B Sjogrens Nucleolar SCL-70, PM-1/SCL High titers Scleroderma, PM/DM Centromere Centromere PSS (limited form) w/Crest syndrome variable Nuclear Dot [id number] Primary Biliary Cirrhosis Nuclear GP210, Primary Biliary Cirrhosis Membrane vickey A,B,C Performed at: - [facility] [id number] Writer Technical Publications: Naldo Valdez PhD, Phone: [phone] PERFORMED BY: [place] [address] PATHOLOGIST SEWER CLEANER JORGE LUIS RUELAS M.D. Performed By: #### T 4F, TSH3, CRP, CMP, ESR, CBC #### [address] C-Reactive Proteinon 023 C-Reactive Protein 0.8 mg/dL High 0.0-0.5 [facility] Comment on above: Performed By: #### T4F, TSH3, CRP, CMP, ESR, CBC #### [address] Complete Blood Count Auto Di ffon 09-07-2022 Basophils (Bld) [#/Vol] 0.1 10*3/uL Normal 0.0-0.2 [facility] Comment on above: Performed By: #### T4F, TSH3, CRP, CMP, ESR, CBC #### [place] [address] [place] Basophils/100 WBC (Bld) 1.0 % Normal . [facility] Comment on above: Performed By: #### T4F, TSH3, CRP, CMP, ESR, CBC #### [place] [address] [place] Eosinophils (Bld) [#/Vol] 0.1 10*3/uL Normal 0.0-0.45 [facility] Comment on above: Performed By: #### T4F, TSH3, CRP, CMP, ESR, CBC #### [place] [address] [place] Eosinophils/100 WBC (Bld) 1.0 % Normal . [facility] Comment on above: Performed By: #### T4F, TSH3, CRP, CMP, ESR, CBC #### [address] Erythrocyte distribution width (RBC) [Ratio] 15.0 % Normal 11.9-15.3 [facility] Comment on above: Performed By: #### T4F, TSH3, CRP, CMP, ESR, CBC #### [address] Hematocrit (Bld) [Volume fraction] 36.3 % Normal 34.0-46.4 [facility] Comment on above: Performed By: #### T4F, TSH3, CRP, CMP, ESR, CBC #### [address] Hemoglobin (Bld) [Mass/Vol] 11.8 g/dL Normal 11.8-15.4 [facility] Comment on above: Performed By: #### T4F, TSH3, CRP, CMP, ESR, CBC #### [address] Lymphocytes (Bld) [#/Vol] 1.4 10*3/uL Normal 1.00-4.8 [facility] Comment on above: Performed By: #### T4F, TSH3, CRP, CMP, ESR, CBC #### [address] Lymphocytes/100 WBC (Bld) 20.9 % Normal . [facility] Comment on above: Performed By: #### T4F, TSH3, CRP, CMP, ESR, CBC #### [address] MCH (RBC) [Entitic mass] 28.9 pg Normal 24.7-34.3 [facility] Comment on above: Performed By: #### T4F, TSH3, CRP, CMP, ESR, CBC #### [address] MCV (RBC) [Entitic vol] 88.4 fL Normal 80-100 [facility] Comment on above: Performed By: #### T4F, TSH3, CRP, CMP, ESR, CBC #### [address] Mean Corpuscular HGB Conc 32.7 g/dL Normal 32.0-35.0 [facility] Comment on above: Performed By: #### T4F, TSH3, CRP, CMP, ESR, CBC #### [address] Monocytes (Bld) [#/Vol] 0.6 10*3/uL Normal 0.0-0.8 [facility] Comment on above: Performed By: #### T4F, TSH3, CRP, CMP, ESR, CBC #### [address] Monocytes/100 WBC (Bld) 9.2 % Normal . [facility] Comment on above: Performed By: #### T4F, TSH3, CRP, CMP, ESR, CBC #### [address] Neutrophils (Bld) [#/Vol] 4.4 10*3/uL Normal 1.8-7.7 [facility] Comment on above: Performed By: #### T4F, TSH3, CRP, CMP, ESR, CBC #### [address] Neutrophils/100 WBC (Bld) 67.9 % Normal . [facility] Comment on above: Performed By: #### T4F, TSH3, CRP, CMP, ESR, CBC #### [address] NRBC% 0.1 /100{WBC} Normal 0-0.5 [facility] Comment on above: Performed By: #### T4F, TSH3, CRP, CMP, ESR, CBC #### [address] Platelet mean volume (Bld) [Entitic vol] 8.8 fL Normal 6.3-10.7 [facility] Comment on above: Performed By: #### T4F, TSH3, CRP, CMP, ESR, CBC #### [address] Platelets (Bld) [#/Vol] 272 10*3/uL Normal 150-450 [facility] Comment on above: Performed By: #### T4F, TSH3, CRP, CMP, ESR, CBC #### [address] RBC (Bld) [#/Vol] 4.11 10*6/uL Normal 3.60-5.00 [facility] Comment on above: Performed By: #### T4F, TSH3, CRP, CMP, ESR, CBC #### [address] WBC (Bld) [#/Vol] 6.5 10*3/uL Normal 3.8-11.6 [facility] Comment on above: Performed By: #### T4F, TSH3, CRP, CMP, ESR, CBC #### [address] Comprehensive Metabolic Pane johana 09-07-2022 Albumin [Mass/Vol] 3.7 g/dL Normal 3.5-5.7 [facility] Comment on above: Performed By: #### T4F, TSH3, CRP, CMP, ESR, CBC #### [address] Albumin/Globulin [Mass ratio] 1.4 {ratio} Normal [facility] Comment on above: Performed By: #### T4F, TSH3, CRP, CMP, ESR, CBC #### [address] ALP [Catalytic activity/Vol] 83 U/L Normal 34-104 [facility] Comment on above: Performed By: #### T4F, TSH3, CRP, CMP, ESR, CBC #### [address] ALT [Catalytic activity/Vol] 9 U/L Normal 7-52 [facility] Comment on above: Performed By: #### T4F, TSH3, CRP, CMP, ESR, CBC #### [address] [address] [place] Anion gap [Moles/Vol] 11.9 mmol/L Normal 6.0-15.0 [facility] Comment on above: Performed By: #### T4F, TSH3, CRP, CMP, ESR, CBC #### [address] AST [Catalytic activity/Vol] 12 U/L Low 13-39 [facility] Comment on above: Performed By: #### T4F, TSH3, CRP, CMP, ESR, CBC #### [address] Bilirubin [Mass/Vol] 0.4 mg/dL Normal 0.3-1.0 [facility] Comment on above: Performed By: #### T4F, TSH3, CRP, CMP, ESR, CBC #### [address] Calcium [Mass/Vol] 9.0 mg/dL Normal 8.6-10.3 [facility] Comment on above: Performed By: #### T4F, TSH3, CRP, CMP, ESR, CBC #### [address] Chloride [Moles/Vol] 105 mmol/L Normal 98-107 [facility] Comment on above: Performed By: #### T4F, TSH3, CRP, CMP, ESR, CBC #### [address] CO2 [Moles/Vol] 30.4 mmol/L Normal 21.0-31.0 [facility] Comment on above: Performed By: #### T4F, TSH3, CRP, CMP, ESR, CBC #### [address] Creatinine [Mass/Vol] 0.92 mg/dL Normal 0.60-1.20 [facility] Comment on above: Performed By: #### T4F, TSH3, CRP, CMP, ESR, CBC #### [place] [address] [place] GFR/1.73 sq M.predicted MDRD (S/P/Bld) [Vol rate/Area] mL/min/{1.73_m2} Normal [facility] Comment on above: Performed By: #### T4F, TSH3, CRP, CMP, ESR, CBC #### [facility] [address] [place] [address] [place] Globulin (S) [Mass/Vol] 2.6 g/dL Normal [facility] Comment on above: Performed By: #### T4F, TSH3, CRP, CMP, ESR, CBC #### [facility] [address] [place] [address] [place] Glucose [Mass/Vol] 92 mg/dL Normal 70-100 [facility] Comment on above: Result Comment: Random Glucose Reference Range is dependent on time and content of last meal. Glucose of more than 200 mg/dL in a nonstressed, ambulatory subject supports the diagnosis of Diabetes Mellitus. ADA recommended reference range Performed By: #### T 4F, TSH3, CRP, CMP, ESR, CBC #### [facility] [address] [place] [address] [place] Potassium [Moles/Vol] 4.3 mmol/L Normal 3.5-5.1 [facility] Comment on above: Performed By: #### T4F, TSH3, CRP, CMP, ESR, CBC #### [facility] [address] [place] [id number] [place] Protein [Mass/Vol] 6.3 g/dL Low 6.4-8.9 [facility] Comment on above: Performed By: #### T4F, TSH3, CRP, CMP, ESR, CBC #### [facility] [address] [place] [address] [place] Sodium [Moles/Vol] 143 mmol/L Normal 136-145 [facility] Comment on above: Performed By: #### T4F, TSH3, CRP, CMP, ESR, CBC #### [facility] [address] [place] [id number] [place] Urea nitrogen [Mass/Vol] 21 mg/dL Normal 7-25 [facility] Comment on above: Performed By: #### T4F, TSH3, CRP, CMP, ESR, CBC #### [facility] [address] [place] [address] [place] Dipstick and Microscopicon 0 09-07-2022 Appearance (U) Cloudy Critically abnormal Clear [facility] Comment on above: Order Comment: Name Collection Type:: Cl marcie-Voided Midstream Performed By: #### S PE, UPE RAND, VITO SERUM, VITO,URINE #### [facility] , #### CUU, ADDONUAPLUS #### [facility] [address] [place] [address] [place] Bacteria,Urine 4+ High None Seen [facility] Comment on above: Order Comment: Name Collection Type:: Cl marcie-Voided Midstream Performed By: #### S PE, UPE RAND, VITO SERUM, VITO,URINE #### [facility] , #### CUU, ADDONUAPLUS #### [facility] [address] [place] [address] [place] Bilirubin,Urine Negative Normal Negative [facility] Comment on above: Order Comment: Name Collection Type:: Cl marcie-Voided Midstream Performed By: #### S PE, UPE RAND, VITO SERUM, VITO,URINE #### [facility] , #### CUU, ADDONUAPLUS #### [facility] [address] [place] [address] Color (U) Yellow Normal Yellow [facility] Comment on above: Order Comment: Name Collection Type:: Cl marcie-Voided Midstream Performed By: #### S PE, UPE RAND, VITO SERUM, VITO,URINE #### [facility] , #### CUU, ADDONUAPLUS #### [facility] [address] [place] [address] [place] Glucose Ql (U) Normal Normal Normal [facility] Comment on above: Order Comment: Name Collection Type:: Cl marcie-Voided Midstream Performed By: #### S PE, UPE RAND, VITO SERUM, VITO,URINE #### [facility] , #### CUU, ADDONUAPLUS #### [facility] [address] [place] [address] Hyaline Casts,Urine 0-8 Normal 0-8 [facility] Comment on above: Order Comment: Name Collection Type:: Cl marcie-Voided Midstream Result Comment: PERF ORMED BY: [place] [address] PATHOLOGIST SEWER CLEANER JORGE LUIS RUELAS M.D. Performed By: #### S PE, UPE RAND, VITO SERUM, VITO,URINE #### [facility] , #### CUU, ADDONUAPLUS #### [facility] [address] [place] [address] Ketones Ql (U) Trace High Negative [facility] Comment on above: Order Comment: Name Collection Type:: Cl marcie-Voided Midstream Performed By: #### S PE, UPE RAND, VITO SERUM, VITO,URINE #### [facility] , #### CUU, ADDONUAPLUS #### [address] Leukocyte esterase Test strip Ql (U) 1+ High Negative [facility] Comment on above: Order Comment: Name Collection Type:: Cl marcie-Voided Midstream Performed By: #### S PE, UPE RAND, VITO SERUM, VITO,URINE #### [facility] , #### CUU, ADDONUAPLUS #### [facility] [address] [place] [address] [place] Nitrite,Urine Positive High Negative [facility] Comment on above: Order Comment: Name Collection Type:: Cl marcie-Voided Midstream Performed By: #### S PE, UPE RAND, VITO SERUM, VITO,URINE #### [facility] , #### CUU, ADDONUAPLUS #### [facility] [address] [place] [address] [place] Occult Blood,Urine Negative Normal Negative [facility] Comment on above: Order Comment: Name Collection Type:: Cl marcie-Voided Midstream Performed By: #### S PE, UPE RAND, VITO SERUM, VITO,URINE #### [facility] , #### CUU, ADDONUAPLUS #### [facility] [address] [place] [address] pH (U) 5.5 [pH] Normal 5.0-9.0 [facility] Comment on above: Order Comment: Name Collection Type:: Cl marcie-Voided Midstream Performed By: #### S PE, UPE RAND, VITO SERUM, VITO,URINE #### [facility] , #### CUU, ADDONUAPLUS #### [facility] [address] [place] [address] [place] Protein,Urine Negative Normal Negative [facility] Comment on above: Order Comment: Name Collection Type:: Cl marcie-Voided Midstream Performed By: #### S PE, UPE RAND, VITO SERUM, VITO,URINE #### [facility] , #### CUU, ADDONUAPLUS #### [facility] [address] [place] [address] [place] RBC,Urine 3-4 Normal 0-4 [facility] Comment on above: Order Comment: Name Collection Type:: Cl marcie-Voided Midstream Performed By: #### S PE, UPE RAND, VITO SERUM, VITO,URINE #### [facility] , #### CUU, ADDONUAPLUS #### [facility] [address] [place] [address] [place] Specificy [place],Urine 1.027 Normal 1.001-1.03 0 [facility] Comment on above: Order Comment: Name Collection Type:: Cl marcie-Voided Midstream Performed By: #### S PE, UPE RAND, VITO SERUM, VITO,URINE #### [facility] , #### CUU, ADDONUAPLUS #### [address] Squamous Epithelial Cell,Urine 5-9 High 0-2 [facility] Comment on above: Order Comment: Name Collection Type:: Cl marcie-Voided Midstream Performed By: #### S PE, UPE RAND, VITO SERUM, VITO,URINE #### [facility] , #### CUU, ADDONUAPLUS #### [address] Urobilinogen,Uri ne Normal Normal Normal [facility] Comment on above: Order Comment: Name Collection Type:: Cl marcie-Voided Midstream Performed By: #### S PE, UPE RAND, VITO SERUM, VITO,URINE #### [facility] , #### CUU, ADDONUAPLUS #### [address] WBC,Urine 5-9 High 0-4 [facility] Comment on above: Order Comment: Name Collection Type:: Cl marcie-Voided Midstream Performed By: #### S PE, UPE RAND, VITO SERUM, VITO,URINE #### [facility] , #### CUU, ADDONUAPLUS #### [address] Erythrocyte Sedimentation Ra trent 09-07-2022 ESR (Bld) [Velocity] 63 mm/h High 0-29 [facility] Comment on above: Result Comment: PERFORMED BY: [place] [address] PATHOLOGIST SEWER CLEANER JORGE LUIS RUELAS M.D. Performed By: #### T 4F, TSH3, CRP, CMP, ESR, CBC #### [address] Free T4 (Free Thyroxine)on 0 09-07-2022 Free T4 [Mass/Vol] 0.96 ng/dL Normal 0.61-1.12 [facility] Comment on above: Performed By: #### T4F, TSH3, CRP, CMP, ESR, CBC #### [place] [address] [place] Immunofixation, (VITO), Urine on 09-07-2022 Immunofixation, (VITO), Urine Normal . [facility] Comment on above: Result Comment: No monoclonality detecte d. Performed at: [facility] [id number] Writer Technical Publications: Naldo Valdez PhD, Phone: [phone] Performed By: #### T 4F, TSH3, CRP, CMP, ESR, CBC #### [place] [address] [place] Immunofixation,Serumon 09-07 Immunofixation, Serum Normal . [facility] Comment on above: Result Comment: No monoclonality detecte d. Performed By: #### S PE, UPE RAND, VITO SERUM, VITO,URINE #### [facility] , #### CUU, ADDONUAPLUS #### [place] [address] [place] Immunoglobulin A, Serum 107 mg/dL Normal 64-422 [facility] Comment on above: Performed By: #### SPE, UPE RAND, VITO SE RUM, VITO,URINE #### [facility] , #### CUU, ADDONUAPLUS #### [place] [address] [place] Immunoglobulin G 972 mg/dL Normal [id number] [facility] Comment on above: Performed By: #### SPE, UPE RAND, VITO SE RUM, VITO,URINE #### [facility] , #### CUU, ADDONUAPLUS #### [place] [id number] [place] Immunoglobulin M, Serum 348 mg/dL High 26-217 [facility] Comment on above: Result Comment: Performed at: - [facility] [address] [id number] Writer Technical Publications: Naldo Valdez PhD, Phone: [phone] Performed By: #### S PE, UPE RAND, VITO SERUM, VITO,URINE #### [facility] , #### CUU, ADDONUAPLUS #### [facility] [address] Protein Electro, Random Urin chester 09-07-2022 Albumin, Urine 15.7 % Normal . [facility] Comment on above: Performed By: #### T4F, TSH3, CRP, CMP, ESR, CBC #### [facility] [address] [place] [address] [place] Eqqvg-7-Zkxjpwmq , Urine 1.3 % Normal . [facility] Comment on above: Performed By: #### T4F, TSH3, CRP, CMP, ESR, CBC #### [facility] [address] [place] [address] [place] Gnvqs-7-Vrfjvqku , Urine 17.8 % Normal . [facility] Comment on above: Performed By: #### T4F, TSH3, CRP, CMP, ESR, CBC #### [facility] [address] [place] [address] [place] Beta Globulin, Urine 36.1 % Normal . [facility] Comment on above: Performed By: #### T4F, TSH3, CRP, CMP, ESR, CBC #### [facility] [address] [place] [address] [place] Gamma Globulin, Urine 29.0 % Normal . [facility] Comment on above: Performed By: #### T4F, TSH3, CRP, CMP, ESR, CBC #### [facility] [address] [place] [address] [place] M-Virgil % Not Observed Normal Not Observed [facility] Comment on above: Performed By: #### T4F, TSH3, CRP, CMP, ESR, CBC #### [facility] [address] Please Note: Normal . [facility] Comment on above: Result Comment: Protein electrophoresis scan will follow via computer, mail, or stick puller delivery. PERFORMED BY: [place] [address] PATHOLOGIST [employer]ER CLEANER JORGE LUIS RUELAS M.D. Performed By: #### T 4F, TSH3, CRP, CMP, ESR, CBC #### [address] Protein (U) [Mass/Vol] 27.7 mg/dL Normal Not Estab. [facility] Comment on above: Performed By: #### T4F, TSH3, CRP, CMP, ESR, CBC #### [place] [address] [place] Protein Electrophoresis, Ser umon 09-07-2022 Albumin [Mass/Vol] 3.3 g/dL Normal 2.9-4.4 [facility] Comment on above: Performed By: #### SPE, UPE RAND, VITO SE RUM, VITO,URINE #### [facility] , #### CUU, ADDONUAPLUS #### [address] Albumin/Globulin [Mass ratio] 1.1 {ratio} Normal 0.7-1.7 [facility] Comment on above: Performed By: #### SPE, UPE RAND, VITO SE RUM, VITO,URINE #### [facility] , #### CUU, ADDONUAPLUS #### [place] [address] [place] Ppkpw-7-Uxbvdgok 0.3 g/dL Normal 0.0-0.4 [facility] Comment on above: Performed By: #### SPE, UPE RAND, VITO SE RUM, VITO,URINE #### [facility] , #### CUU, ADDONUAPLUS #### [place] [address] [place] Qbzys-2-Gvmcfgji 0.9 g/dL Normal 0.4-1.0 [facility] Comment on above: Performed By: #### SPE, UPE RAND, VITO SE RUM, VITO,URINE #### [facility] , #### CUU, ADDONUAPLUS #### [facility] [address] [place] [address] [place] Beta Globulin 0.9 g/dL Normal 0.7-1.3 [facility] Comment on above: Performed By: #### SPE, UPE RAND, VITO SE RUM, VITO,URINE #### [facility] , #### CUU, ADDONUAPLUS #### [facility] [address] [place] [address] [place] Gamma Globulin 1.1 g/dL Normal 0.4-1.8 [facility] Comment on above: Performed By: #### SPE, UPE RAND, VITO SE RUM, VITO,URINE #### [facility] , #### CUU, ADDONUAPLUS #### [facility] [address] [place] [address] [place] Globulin (S) [Mass/Vol] 3.1 g/dL Normal 2.2-3.9 [facility] Comment on above: Performed By: #### SPE, UPE RAND, VITO SE RUM, VITO,URINE #### [facility] , #### CUU, ADDONUAPLUS #### [facility] [address] [place] [address] M-Virgil Not Observed Normal Not Observed [facility] Comment on above: Performed By: #### SPE, UPE RAND, VITO SE RUM, VITO,URINE #### [facility] , #### CUU, ADDONUAPLUS #### [facility] [address] [place] [address] [place] Protein [Mass/Vol] 6.4 g/dL Normal 6.0-8.5 [facility] Comment on above: Performed By: #### SPE, UPE RAND, VITO SE RUM, VITO,URINE #### [facility] , #### CUU, ADDONUAPLUS #### [address] SPE-Note Normal . [facility] Comment on above: Result Comment: Protein electrophoresis scan will follow via computer, mail, or stick puller delivery. Performed at: [facility] [address] [id number] Writer Technical Publications: Naldo Valdez PhD, Phone: [phone] PERFORMED BY: [place] [address] PATHOLOGIST SEWER CLEANER JORGE LUIS RUELAS M.D. Performed By: #### S PE, UPE RAND, VITO SERUM, VITO,URINE #### [facility] , #### CUU, ADDONUAPLUS #### [address] Thyroid Stimulating Hormoneo n 09-07-2022 TSH Qn 1.60 m[IU]/L Normal 0.45-5.33 [facility] Comment on above: Result Comment: PERFORMED BY: [place] [address] PATHOLOGIST SE[employer]ER CLEANER JORGE LUIS RUELAS M.D. Performed By: #### T 4F, TSH3, CRP, CMP, ESR, CBC #### [address] Urine Cultureon 09-07-2022 Bacteria identified Cx Nom (U) ORGANISM: Escherichia coli (O:ESCCOL) [place] Count >100,000 Aerobic DELFIN Charge (NMIC56) SUSCEPTIBILITY [...] RESISTANT TO ALL B-LACTAM DRUGS. PERFORMED BY: [place] [address] PATHOLOGIST SEWER CLEANER JORGE LUIS RUELAS M.D. [facility] Comment on above: Performed By: #### SPE, UPE RAND, VITO SE RUM, VITO,URINE #### [facility] , #### CUU, ADDONUAPLUS #### [facility] [address] [place] [address] CULTURE URINEon 05-28-2022 CULTURE URINE Isolate 1 [...] <=16 S F Trimethoprim/Sulfamethoxazole <=20 S F [facility] Comment on above: Performed By: #### UACSIND #### [facility] [address] [place] [address] Dr. Megan Caballero ALDOLASEon 05-27-2022 Aldolase 5.8 U/L Normal 3.3-10.3 [facility] Comment on above: Performed By: #### LACT #### [facility] [address] [place] [address] Dr. Megan Caballero TAO DIRECTon 05-27-2022 TAO Direct Negative Normal Negative [facility] Comment on above: Performed By: #### LACT #### [facility] [address] [place] [address] Dr. Megan Caballero RHEUMATOID FACTORon 05-28-19 23 RA Latex Turbid. 28.2 IU/mL Critically high <14.0 [facility] Comment on above: Performed By: #### LACT #### [facility] [address] [place] [address] Dr. Megan Caballero CBC AUTO DIFFon 05-26-2022 BASO # 0.0 103/ul Normal 0.0-0.1 [facility] Comment on above: Performed By: #### LACT #### [facility] [address] [place] [address] Dr. Megan Caballero Basophils/100 WBC (Bld) 0.1 % Critically low 0.2-2.0 [facility] Comment on above: Performed By: #### LACT #### [facility] [address] [place] [address] Dr. Megan Caballero EO # 0.0 103/ul Normal 0.0-0.7 [facility] Comment on above: Performed By: #### LACT #### [facility] [address] [place] [address] Dr. Megan Caballero Eosinophils/100 WBC (Bld) 0.0 % Critically low 0.9-7.0 [facility] Comment on above: Performed By: #### LACT #### [facility] [address] [place] [address] Dr. Megan Caballero Erythrocyte distribution width (RBC) [Ratio] 13.4 % Normal 11.0-15.0 [facility] Comment on above: Performed By: #### LACT #### [facility] [address] [place] [address] Dr. Megan Caballero Hematocrit (Bld) [Volume fraction] 33.4 % Critically low 36.0-48.0 [facility] Comment on above: Performed By: #### LACT #### [facility] [address] [place] [address] Dr. Megan Caballero Hemoglobin (Bld) [Mass/Vol] 11.0 g/dL Critically low 12.0-16.0 [facility] Comment on above: Performed By: #### LACT #### [facility] [address] [place] [address] Dr. Megan Caballero IG # 0.12 10e3/ul Critically high 0.00-0.03 [facility] Comment on above: Performed By: #### LACT #### [facility] [address] [place] [address] Dr. Megan Caballero IG % 0.9 % Critically high 0.0-0.5 [facility] Comment on above: Performed By: #### LACT #### [facility] [address] [place] [address] Dr. Megan Caballero LYMPH # 0.8 103/ul Critically low 1.2-3.8 [facility] Comment on above: Performed By: #### LACT #### [facility] [address] [place] [address] Dr. Megan Caballero Lymphocytes/100 WBC (Bld) 5.7 % Critically low 20.5-60.0 [facility] Comment on above: Performed By: #### LACT #### [facility] [address] [place] [address] Dr. Megan Caballero MANUAL DIFF REQ NO Normal [facility] Comment on above: Performed By: #### LACT #### [facility] [address] [place] [address] Dr. Megan Caballero MCH (RBC) [Entitic mass] 29.2 pg Normal 26.7-34.0 [facility] Comment on above: Performed By: #### LACT #### [facility] [address] [place] [address] Dr. Megan Caballero MCHC (RBC) [Mass/Vol] 32.9 g/dL Normal 29.9-35.2 [facility] Comment on above: Performed By: #### LACT #### [facility] [address] [place] [address] Dr. Megan Caballero MCV (RBC) [Entitic vol] 88.6 fL Normal 81.0-99.0 [facility] Comment on above: Performed By: #### LACT #### [facility] [address] [place] [address] [address] Megan Caballero MONO # 1.1 103/ul Critically high 0.3-0.8 [facility] Comment on above: Performed By: #### LACT #### [facility] [address] [place] [address] Dr. Megan Caballero Monocytes/100 WBC (Bld) 7.9 % Normal 1.7-12.0 [facility] Comment on above: Performed By: #### LACT #### [facility] [address] [place] [address] Dr. Megan Caballero NEUT # 11.9 103/ul Critically high 1.4-6.5 [facility] Comment on above: Performed By: #### LACT #### [facility] [address] [place] [address] Dr. Megan Caballero Neutrophils/100 WBC (Bld) 85.4 % Critically high 43.0-75.0 [facility] Comment on above: Performed By: #### LACT #### [facility] [address] [place] [address] [address] Megan Caballero Platelet mean volume (Bld) [Entitic vol] 10.2 fL Normal 9.5-13.5 [facility] Comment on above: Performed By: #### LACT #### [facility] [address] [place] [address] Dr. Megan Caballero PLT 176 103/ul Normal 150-450 [facility] Comment on above: Performed By: #### LACT #### [facility] [address] [place] [address] Dr. Megan Caballero RBC 3.77 106/ul Critically low 4.20-5.40 [facility] Comment on above: Performed By: #### LACT #### [facility] [address] [place] [address] Dr. Megan Caballero WBC 13.9 103/ul Critically high 4.0-11.0 [facility] Comment on above: Performed By: #### LACT #### [facility] [address] [place] [address] Dr. Megan Caballero CULTURE BLOODon 05-26-2022 Microscopic examination of blood, culture Culture Observations: NO GROWTH AT 5 DAYS. Normal [facility] Comment on above: Performed By: #### UACSIND #### [facility] [address] [place] [address] Dr. Megan Caballero Microscopic examination of blood, culture Culture Observations: NO GROWTH AT 5 DAYS. Normal [facility] Comment on above: Performed By: #### UACSIND #### [facility] [address] [place] [address] Dr. Megan Caballero LACTATE/LACTIC ACIDon 2022 Lactate [Moles/Vol] 1.1 mmol/L Normal 0.4-1.9 [facility] Comment on above: Performed By: #### LACT #### [facility] [address] [place] [address] Dr. Megan Caballero LIVER PROFILEon 05-26-2022 Albumin [Mass/Vol] 2.7 g/dL Critically low 3.4-5.0 [facility] Comment on above: Performed By: #### LACT #### [facility] [address] [place] [address] Dr. Megan Caballero Albumin/Globulin [Mass ratio] 0.6 {ratio} Normal [facility] Comment on above: Performed By: #### LACT #### [facility] [address] [place] [address] Dr. Megan Caballero ALP [Catalytic activity/Vol] 107 U/L Normal 46-116 [facility] Comment on above: Performed By: #### LACT #### [facility] [address] [place] [address] Dr. Megan Caballero ALT [Catalytic activity/Vol] 12 U/L Critically low 14-59 [facility] Comment on above: Performed By: #### LACT #### [facility] [address] [place] [address] [address] Megan Caballero AST [Catalytic activity/Vol] 16 U/L Normal 15-37 [facility] Comment on above: Performed By: #### LACT #### [facility] [address] [place] [address] [address] Megan Caballero BILI, CONJUGATED 0.1 mg/dL Normal 0.0-0.2 [facility] Comment on above: Performed By: #### LACT #### [facility] [address] [place] [address] [address] Megan Caballero Bilirubin [Mass/Vol] 0.6 mg/dL Normal 0.2-1.0 [facility] Comment on above: Performed By: #### LACT #### [facility] [address] [place] [address] Dr. Megan Caballero Globulin (S) [Mass/Vol] 4.2 g/dL Normal [facility] Comment on above: Performed By: #### LACT #### [facility] [address] [place] [address] [address] Megan Caballero Protein [Mass/Vol] 6.9 g/dL Normal 6.4-8.2 [facility] Comment on above: Performed By: #### LACT #### [facility] [address] [place] [address] Dr. Megan Caballero MAGNESIUMon 05-26-2022 Magnesium [Mass/Vol] 1.9 mg/dL Normal 1.8-2.4 [facility] Comment on above: Performed By: #### MG #### [facility] [address] [place] [address] Dr. Megan Caballero NM BONE SC WH BODYon 023 NM BONE SC WH BODY EXAMINATION: [facility] BODY HISTORY: Pain ; right hip pain, [...] IHSAN PEDROZA Date: 2022-05-26 15:25 Normal [facility] PROF 14(COMP METB)on 023 Albumin [Mass/Vol] 2.4 g/dL Critically low 3.4-5.0 [facility] Comment on above: Performed By: #### LACT #### [facility] [address] [place] [address] Dr. Megan Caballero Albumin/Globulin [Mass ratio] 0.6 {ratio} Normal [facility] Comment on above: Performed By: #### LACT #### [facility] [address] [place] [address] Dr. Megan Caballero ALP [Catalytic activity/Vol] 92 U/L Normal 46-116 [facility] Comment on above: Performed By: #### LACT #### [facility] [address] [place] [address] Dr. Megan Caballero ALT [Catalytic activity/Vol] 10 U/L Critically low 14-59 [facility] Comment on above: Performed By: #### LACT #### [facility] [address] [place] [address] Dr. Megan Caballero Anion gap [Moles/Vol] 10.3 mmol/L Normal [facility] Comment on above: Performed By: #### LACT #### [facility] [address] [place] [address] Dr. Megan Caballero AST [Catalytic activity/Vol] 14 U/L Critically low 15-37 [facility] Comment on above: Performed By: #### LACT #### [facility] [address] [place] [address] Dr. Megan Caballero Bilirubin [Mass/Vol] 0.5 mg/dL Normal 0.2-1.0 [facility] Comment on above: Performed By: #### LACT #### [facility] [address] [place] [address] Dr. Megan Caballero Calcium [Mass/Vol] 8.2 mg/dL Critically low 8.5-10.1 [facility] Comment on above: Performed By: #### LACT #### [facility] [address] [place] [address] Dr. Megan Caballero Chloride [Moles/Vol] 104 mmol/L Normal 98-107 [facility] Comment on above: Performed By: #### LACT #### [facility] [address] [place] [address] Dr. Megan Caballero CO2 [Moles/Vol] 28.2 mmol/L Normal 21.0-32.0 [facility] Comment on above: Performed By: #### LACT #### [facility] [address] [place] [address] Dr. Megan Caballero Creatinine [Mass/Vol] 1.05 mg/dL Critically high 0.55-1.02 [facility] Comment on above: Performed By: #### LACT #### [facility] [address] [place] [address] Dr. Megan Caballero EGFR-AF BRITISH >60 Normal >=60 [facility] Comment on above: Performed By: #### LACT #### [facility] [address] [place] [address] Dr. Megan Caballero EGFR-NON AF BRITISH 50 mL/min/1.73m2 Critically low >=60 [facility] Comment on above: Performed By: #### LACT #### [facility] [address] [place] [address] Dr. Megan Caballero Globulin (S) [Mass/Vol] 3.7 g/dL Normal [facility] Comment on above: Performed By: #### LACT #### [facility] [address] [place] [address] Dr. Megan Caballero Glucose [Mass/Vol] 116 mg/dL Critically high 74-106 [facility] Comment on above: Performed By: #### LACT #### [facility] [address] [place] [address] Dr. Megan Caballero Potassium [Moles/Vol] 3.5 mmol/L Normal 3.5-5.1 [facility] Comment on above: Performed By: #### LACT #### [facility] [address] [place] [address] Dr. Megan Caballero Protein [Mass/Vol] 6.1 g/dL Critically low 6.4-8.2 [facility] Comment on above: Performed By: #### LACT #### [facility] [address] [place] [address] Dr. Megan Caballero Sodium [Moles/Vol] 139 mmol/L Normal 136-145 [facility] Comment on above: Performed By: #### LACT #### [facility] [address] [place] [address] Dr. Megan Caballero Urea nitrogen [Mass/Vol] 25.0 mg/dL Critically high 7.0-18.0 [facility] Comment on above: Performed By: #### LACT #### [facility] [address] [place] [address] Dr. Megan Caballero Urea nitrogen/Creatin ine [Mass ratio] 23.8 mg/mg Normal [facility] Comment on above: Performed By: #### LACT #### [facility] [address] [place] [address] Dr. Megan Caballero PTTon 05-26-2022 aPTT Coag (Bld) [Time] 31.1 s Normal 22.3-36.2 [facility] Comment on above: Performed By: #### PTT #### [facility] [address] [place] [address] Dr. Megan Caballero UA RANDOMon 05-26-2022 Bilirubin Ql (U) Negative Normal NEGATIVE [facility] Comment on above: Performed By: #### UA #### [facility] [address] [place] [address] Dr. Megan Caballero Clarity (U) CLEAR Normal CLEAR [facility] Comment on above: Performed By: #### UA #### [facility] [address] [place] [address] Dr. Megan Caballero Color (U) LT. YELLOW Normal YELLOW [facility] Comment on above: Performed By: #### UA #### [facility] [address] [place] [address] Dr. Megan Caballero Glucose Ql (U) Negative Normal NEGATIVE [facility] Comment on above: Performed By: #### UA #### [facility] [address] [place] [address] Dr. Megan Caballero Hemoglobin Ql (U) MODERATE Abnormal NEGATIVE [facility] Comment on above: Performed By: #### UA #### [facility] [address] [place] [address] Dr. Megan Caballero Ketones Ql (U) Negative Normal NEGATIVE [facility] Comment on above: Performed By: #### UA #### [facility] [address] [place] [address] Dr. Megan Caballero LEUKOCYTES TRACE Abnormal NEGATIVE [facility] Comment on above: Performed By: #### UA #### [facility] [address] [place] [address] Dr. Megan Caballero Nitrite Ql (U) Negative Normal NEGATIVE [facility] Comment on above: Performed By: #### UA #### [facility] [address] [place] [address] Dr. Megan Caballero pH (U) 6.0 [pH] Normal 5-9 [facility] Comment on above: Performed By: #### UA #### [facility] [address] [place] [address] Dr. Megan Caballero SPEC GRAVITY 1.015 Normal 1.005-<=1. 025 [facility] Comment on above: Performed By: #### UA #### [facility] [address] [place] [address] Dr. Megan Caballero UA PROTEIN 30 mg/dl Abnormal NEGATIVE/ TRACE [facility] Comment on above: Performed By: #### UA #### [facility] [address] [place] [address] Dr. Meagn Caballero Urobilinogen Qn (U) 0.2 {Renu'U}/dL Normal 0.2 - 1.0 [facility] Comment on above: Performed By: #### UA #### [facility] [address] [place] [address] Dr. Megan Caballero XR CHEST 1 Von [...] ALVINO BENITEZ Date: 2022-05-26 04:41 Normal [facility] CPKon 05-25-2022 CK [Catalytic activity/Vol] 73 U/L Normal 26-192 [facility] Comment on above: Performed By: #### UACSIND #### [facility] [address] [place] [address] Dr. Megan Caballero CRPon 05-25-2022 CRP 11.9 mg/dL Critically high <=1.0 [facility] Comment on above: Performed By: #### CRP, URIC #### [facility] [address] [place] [address] Dr. Megan Caballero [facility] SARS-CoV-2 (COVID-19) RNA YU+probe Ql (Unsp spec) Not detected Normal NOT DETECTED [facility] Comment on above: Result Comment: When [...] for this test is supported by the [place] of Health and Human Service's declaration that [...] used). Performed By: #### U ACSIND #### [facility] [address] [place] [address] Dr. Megan Caballero SED RATE WESTERGRENon 2022 SED RATE 55 mm/hr Critically high <=30 [facility] Comment on above: Performed By: #### SEDR #### [facility] [address] [place] [address] Dr. Megan Caballero TSHon 05-25-2022 TSH 0.533 uIU/mL Normal 0.358-3.74 0 [facility] Comment on above: Performed By: #### TSH #### [facility] [address] [place] [address] Dr. Megan Caballero UA (CLEAN/CATCH) QUILTER FIXER/MICRO I F IND.on 05-25-2022 Bilirubin Ql (U) Negative Normal NEGATIVE [facility] Comment on above: Performed By: #### UACSIND #### [facility] [address] [place] [address] Dr. Megan Caballero Clarity (U) CLEAR Normal CLEAR [facility] Comment on above: Performed By: #### UACSIND #### [facility] [address] [place] [address] Dr. Megan Caballero Color (U) LT. YELLOW Normal YELLOW [facility] Comment on above: Performed By: #### UACSIND #### [facility] [address] [place] [address] Dr. Megan Caballero Glucose Ql (U) Negative Normal NEGATIVE [facility] Comment on above: Performed By: #### UACSIND #### [facility] [address] [place] [address] Dr. Megan Caballero Hemoglobin Ql (U) TRACE-LYSED Abnormal NEGATIVE [facility] Comment on above: Performed By: #### UACSIND #### [facility] [address] [place] [address] Dr. Megan Caballero Ketones Ql (U) Negative Normal NEGATIVE [facility] Comment on above: Performed By: #### UACSIND #### [facility] [address] [place] [address] Dr. Megan Caballero LEUKOCYTES Negative Normal NEGATIVE [facility] Comment on above: Performed By: #### UACSIND #### [facility] [address] [place] [address] Dr. Megan Caballero Nitrite Ql (U) Negative Normal NEGATIVE [facility] Comment on above: Performed By: #### UACSIND #### [facility] [address] [place] [address] Dr. Megan Caballero pH (U) 6.5 [pH] Normal 5-9 [facility] Comment on above: Performed By: #### UACSIND #### [facility] [address] [place] [address] Dr. Megan Caballero SPEC GRAVITY 1.020 Normal 1.005-<=1. 025 [facility] Comment on above: Performed By: #### UACSIND #### [facility] [address] [place] [address] Dr. Megan Caballero UA PROTEIN Negative Normal NEGATIVE/ TRACE [facility] Comment on above: Performed By: #### UACSIND #### [facility] [address] [place] [address] Dr. Megan Caballero UR MICRO IND NOT INDICATED Normal [facility] Comment on above: Performed By: #### UACSIND #### [facility] [address] [place] [address] Dr. Megan Caballero Urobilinogen Qn (U) 0.2 {Renu'U}/dL Normal 0.2 - 1.0 [facility] Comment on above: Performed By: #### UACSIND #### [facility] [address] [place] [address] Dr. Megan Caballero URIC ACID SERUMon 05-25-2022 Urate [Mass/Vol] 4.3 mg/dL Normal 2.6-6.0 [facility] Comment on above: Performed By: #### CRP, URIC #### [facility] [address] [place] [address] Dr. Megan Caballero XR FEMUR RTon 05-25-2022 [...] JELANI MAR Date: 2022-05-24 23:28 Normal [facility] CBC W MANUAL DIFFon 05-25-19 23 ATYPICAL LYMPH # Normal [facility] Comment on above: Performed By: #### LACT #### [facility] [address] [place] [address] Dr. Megan Caballero ATYPICAL LYMPH % Normal [facility] Comment on above: Performed By: #### LACT #### [facility] [address] [place] [address] Dr. Megan Caballero BAND # 0.0 103/ul Normal 0.0-0.3 [facility] Comment on above: Performed By: #### LACT #### [facility] [address] [place] [address] Dr. Megan Caballero BAND % 0 % Normal 0-5 [facility] Comment on above: Performed By: #### LACT #### [facility] [address] [place] [address] Dr. Megan Caballero BASOM # 0.00 103/ul Normal 0.00-0.10 [facility] Comment on above: Performed By: #### LACT #### [facility] [address] [place] [address] Dr. Megan Caballero BASOM % 0.0 % Critically low 0.2-2.0 [facility] Comment on above: Performed By: #### LACT #### [facility] [address] [place] [address] Dr. Megan Caballero BLAST # Normal [facility] Comment on above: Performed By: #### LACT #### [facility] [address] [place] [address] Dr. Megan Caballero BLAST % Normal [facility] Comment on above: Performed By: #### LACT #### [facility] [address] [place] [address] Dr. Megan Caballero CORRECTED WBC Normal 4.0-11.0 [facility] Comment on above: Performed By: #### LACT #### [facility] [address] [place] [address] Dr. Megan Caballero EOS # 0.00 103/ul Normal 0.00-0.70 [facility] Comment on above: Performed By: #### LACT #### [facility] [address] [place] [address] Dr. Megan Caballero EOS% 0.0 % Critically low 0.9-7.0 [facility] Comment on above: Performed By: #### LACT #### [facility] [address] [place] [address] Dr. Megan Caballero HCT 37.2 % Normal 36.0-48.0 [facility] Comment on above: Performed By: #### LACT #### [facility] [address] [place] [address] Dr. Megan Caballero HGB 12.2 g/dl Normal 12.0-16.0 [facility] Comment on above: Performed By: #### LACT #### [facility] [address] [place] [address] Dr. Megan Caballero LYMPHM # 0.23 103/ul Critically low 1.20-3.80 [facility] Comment on above: Performed By: #### LACT #### [facility] [address] [place] [address] Dr. Megan Caballero LYMPHM% 2.0 % Critically low 20.5-60.0 [facility] Comment on above: Performed By: #### LACT #### [facility] [address] [place] [address] Dr. Megan Caballero MCH 28.6 pg Normal 26.7-34.0 [facility] Comment on above: Performed By: #### LACT #### [facility] [address] [place] [address] Dr. Megan Caballero MCHC 32.8 g/dl Normal 29.9-35.2 [facility] Comment on above: Performed By: #### LACT #### [facility] [address] [place] [address] Dr. Megan Caballero MCV 87.1 fL Normal 81.0-99.0 [facility] Comment on above: Performed By: #### LACT #### [facility] [address] [place] [address] Dr. Megan Caballero METAMYELOCYTE # Normal [facility] Comment on above: Performed By: #### LACT #### [facility] [address] [place] [address] Dr. Megan Caballero METAMYELOCYTE % Normal [facility] Comment on above: Performed By: #### LACT #### [facility] [address] [place] [address] Dr. Megan Caballero MONOM# 0.23 103/ul Critically low 0.30-0.80 [facility] Comment on above: Performed By: #### LACT #### [facility] [address] [place] [address] Dr. Megan Caballero MONOM% 2.0 % Normal 1.7-12.0 [facility] Comment on above: Performed By: #### LACT #### [facility] [address] [place] [address] Dr. Megan Caballero MPV 9.5 fL Normal 9.5-13.5 [facility] Comment on above: Performed By: #### LACT #### [facility] [address] [place] [address] Dr. Megan Caballero MYELOCYTE # Normal [facility] Comment on above: Performed By: #### LACT #### [facility] [address] [place] [address] Dr. Megan Caballero MYELOCYTE % Normal [facility] Comment on above: Performed By: #### LACT #### [facility] [address] [place] [address] Dr. Megan Caballero NRBC Normal [facility] Comment on above: Performed By: #### LACT #### [facility] [address] [place] [address] Dr. Megan Caballero PLT 197 103/ul Normal 150-450 [facility] Comment on above: Performed By: #### LACT #### [facility] [address] [place] [address] Dr. Megan Caballero RBC 4.27 106/ul Normal 4.20-5.40 [facility] Comment on above: Performed By: #### LACT #### [facility] [address] [place] [address] Dr. Megan Caballero RDW 13.1 % Normal 11.0-15.0 [facility] Comment on above: Performed By: #### LACT #### [facility] [address] [place] [address] Dr. Megan Caballero SEG # 10.85 103/ul Critically high 1.40-6.50 [facility] Comment on above: Performed By: #### LACT #### [facility] [address] [place] [address] Dr. Megan Caballero SEG % 96.0 % Critically high 43.0-75.0 [facility] Comment on above: Performed By: #### LACT #### [facility] [address] [place] [address] Dr. Megan Caballero WBC 11.3 103/ul Critically high 4.0-11.0 [facility] Comment on above: Performed By: #### LACT #### [facility] [address] [place] [address] Dr. Megan Caballero CRPon 05-24-2022 CRP 1.7 mg/dL Critically high <=1.0 [facility] Comment on above: Performed By: #### LACT #### [facility] [address] [place] [address] PELVIS WO CONon [...] of iterative reconstruction technique. FINDINGS: The initial animal herder views demonstrate bilateral total hip prostheses. The [...] JELANI MAR Date: 2022-05-24 21:51 Normal [facility] PROF CHEM 8 (BAS METB)on Anion gap [Moles/Vol] 12.6 mmol/L Normal [facility] Comment on above: Performed By: #### LACT #### [facility] [address] [place] [address] Dr. Megan Caballero Calcium [Mass/Vol] 8.6 mg/dL Normal 8.5-10.1 [facility] Comment on above: Performed By: #### LACT #### [facility] [address] [place] [address] Dr. Megan Caballero Chloride [Moles/Vol] 102 mmol/L Normal 98-107 [facility] Comment on above: Performed By: #### LACT #### [facility] [address] [place] [address] Dr. Megan Caballero CO2 [Moles/Vol] 28.6 mmol/L Normal 21.0-32.0 [facility] Comment on above: Performed By: #### LACT #### [facility] [address] [place] [address] Dr. Megan Caballero Creatinine [Mass/Vol] 0.73 mg/dL Normal 0.55-1.02 [facility] Comment on above: Performed By: #### LACT #### [facility] [address] [address] [address] Megan Caballero EGFR-AF BRITISH >60 Normal >=60 [facility] Comment on above: Performed By: #### LACT #### [facility] [address] [address] [address] Megan Caballero EGFR-NON AF BRITISH >60 Normal >=60 [facility] Comment on above: Performed By: #### LACT #### [facility] [address] [address] [address] Megan Caballero Glucose [Mass/Vol] 121 mg/dL Critically high 74-106 [facility] Comment on above: Performed By: #### LACT #### [facility] [address] [place] [address] Dr. Megan Caballero Potassium [Moles/Vol] 3.2 mmol/L Critically low 3.5-5.1 [facility] Comment on above: Performed By: #### LACT #### [facility] [address] [address] [address] Megan Caballero Sodium [Moles/Vol] 140 mmol/L Normal 136-145 [facility] Comment on above: Performed By: #### LACT #### [facility] [address] [place] [address] Dr. Megan Caballero Urea nitrogen [Mass/Vol] 15.0 mg/dL Normal 7.0-18.0 [facility] Comment on above: Performed By: #### LACT #### [facility] [address] [place] [address] Dr. Megan Caballero Urea nitrogen/Creatin ine [Mass ratio] 20.5 mg/mg Normal [facility] Comment on above: Performed By: #### LACT #### [facility] [address] [place] [address] Dr. Megan Caballero [facility] 54 mm/hr Critically high <=30 [facility] Comment on above: Performed By: #### SEDR #### [facility] [address] [place] [address] Dr. Megan Jackson 05-30-2020 KAYLIE Office Visit (UROLAV ) ANGELIKA MUIR ([id number]) 1940 [place] Date Time Provider Department 05/30/20 6:00 PM NEGRO POMPA During your visit today, we recorded the following information about you: Pulse Blood pressure Weight 101/minute 141/67 98.4 kg Negro Pompa MD 05/30/2020 6:55 PM Signed [facility] [...] Via bladder scan. Referring Provider: NEGRO POMPA [[id number]] Allergies As of Date: 05/30/2020 Noted Allergy [...] 01/10/2014 Visit Notes: >> Kell Arauz MA Donna May 30, 2020 6:31 PM Status: Signed PVR = 71 ml Via bladder scan. Medications Discontinued During This Encounter Prescriptions - solifenacin 10 mg tablet (Discontinued) Take 5 mg by mouth once daily. Encounter Status:Closed by NEGRO POMPA MD on 05/30/20 Normal [facility] CNCOon 05-28-2020 CNCO Letter Text [facility] ANES POSTPROC EVALon 021 ANES POSTPROC EVAL HNO ID: [id number] Author: Ihsan Gamino Service: Anesthesiology Author Type: Anesthesiologist Type: Anesthesia Postprocedure Evaluation Filed: 05/01/2020 4:49 PM Note Text: POST ANESTHESIA EVALUATION NOTE : 1940 Procedure Summary Date: 05/01/20 Room / Location: [address] / [facility] Anesthesia [...] May 01, 2020 TIME: 4:49 PM CSN: [id number] [facility] ANES PRE-OPon 05-01-2020 ANES PRE-OP HNO ID: [id number] Author: Ihsan Gamino Service: Anesthesiology Author Type: [...] May 01, 2020 TIME: 3:53 PM CSN: [id number] [facility] HISTORY PHYSICALon HISTORY PHYSICAL HNO ID: [id number] Author: Negro Pompa Service: Urology Author Type: [...] Pompa MD May 01, 2020 1:22 PM [facility] OPERATIVE NOon 05-01-2020 OPERATIVE NO HNO ID: [id number] Author: Negro Pompa Service: Urology Author Type: Physician Type: Operative Report Filed: 05/01/2020 5:00 PM Note Text: OPERATIVE/PROCEDURE REPORT LOG ID: [id number] SURGERY/PROCEDURE DATE: 05/01/2020 INCISION/PROCEDURE START TIME: 3:28 PM INCISION CLOSE/PROCEDURE END TIME: 4:05 PM SURGEON(S)/PROCEDURALIST(S) AND INK JET OPERATOR(S): Surgeon(s) and Role: * Negro Pompa [...] 2020 TIME: 4:45 PM PAGER/CONTACT #: Normal [facility] SURGICAL PATHOLOGYon 021 SURGICAL PATHOLOGY Specimen originated from [facility] Specimen #: [id number] Submitting Physician: NEGRO POMPA FINAL DIAGNOSIS Vaginal mesh/sling - Squamous mucosa and fibrotic soft tissue with foreign material consistent with mesh. AES/ka 05/06/2020 Bette Mckeon M.D. (Electronic Signature) _ [...] cassette. DOUG/evens 05/02/2020 Gross examination performed at [facility], [address] [address] Date of Report: 05/06/2020 Date of Procedure: 05/01/2020 Date of Receipt: 05/02/2020 Submitted by: NEGRO POMPA Location: [facility] Diagnostic interpretation performed at , [facility] [address] [place] [address]. CLIA Number: [id number] Normal [facility] HOSPon 04-19-2020 HOSP Patient:Nany Muir MRN: [...] notes entered within the past 30 days Normal [facility] Provider Letteron 11-21-2019 Provider Letter (Inserted Image. Patricia ble to display) November 21, 2019 ANGELIKA MUIR [address] [place] [id number] ANGELIKA MUIR 1940 Dear Angelika, You missed [...] understanding. Sincerely, [facility]/Dr De La Cruz [facility] Ambulatory Clinical Summaryo n 10-27-2019 Ambulatory Clinical Summary {[id number] [facility] Patient Educationon 10-24-19 20 Patient Education Family Medicine Overactive Bladder, Adult [...] bladder worse. Your healthcare provider or a [employer] professor can explain ways to change what you [...] Document Reviewed: 01/02/2010 ExitCare? Patient Information ?2013 [employer]ew. [facility] Urology Office/Clinic Noteon 10-24-2019 Urology Office/Clinic Note [...] in 1 month. Ordered: PVR urine/bladder capacity/[place] 43113 Urnls Dip Stick Auto w/o Microscopy POC 97112 2. Other urethral stricture, female (N35.82: Other [...] Daily, # 30 tab(s), Refills(s) 1, [facility], 170, cm, 10/24/19 14:15:00 EDT, Height/Length Measured, 100, kg, 10/24/19 14:15:00 EDT, Weight Measured I have reviewed the previous health record information and history for this patient from Dr. De La Cruz Follow-up With When Contact Information Jono Faust MD, Bandar Devine In 1 month [facility] [address], [place] [address]- Additional Instructions: w/ PVR Patient Education Overactive [...] Protein Urine Dipstick: Negative (10/24/19 14:03:00) Specific [place] Urine Dipstick: 1.025 (10/24/19 14:03:00) Urine Appearance Urine Dipstick: Clear (10/24/19 14:03:00) Urine Color Urine Dipstick: Yellow (10/24/19 14:03:00) Urobilinogen Urine Dipstick: Normal 0.2-1 EU/dl (10/24/19 14:03:00) pH Urine Dipstick: 5.5 (10/24/19 14:03:00) Diagnostic Results PVR was reviewed at 85 cc. Urinalysis shows no infection. Normal [facility] Comment on above: Result Comment: Electronically Signed By : Jono Faust MD, Bandar Devine\.br\Date and Time Signed: 10/24/19 14:59 EDT\.br\Electronically Co-Signed By: Lida Ybarra MA\.br\Date and Time Co-Signed: 10/24/19 14:56 EDT Ambulatory Clinical Summaryo n 08-24-2019 Ambulatory Clinical Summary {[id number] Normal [facility] Reminderson 04-24-2019 Reminders - From: Kristen Rivero To: [facility] - Clinical; Sent: 04/04/2019 15:20:13 EST Show up: 04/24/2019 07:00:00 EST Subject: Urodynamics Report Due Date/Time: 04/24/2019 07:00:00 EST Reminder/Recall Show Dr. De La Cruz results, patient may need scheduled for Cysto/TVT sling Test: Urodynamics Test being done 04/20/19 @ HOP From: Fili Morgan MA ([facility] - Clinical) To: Bandar De La Cruz Jr., MD; Sent: 04/24/2019 08:02:48 EST Show up: 04/24/2019 08:02:00 EST Subject: RE: Urodynamics Report Please review Urodynamics report. Per message, Pt may need scheduled for Cysto/ TVT Normal [facility] Coding Summary.on 04-21-2019 Coding Summary. CODING DATE: 020 FINAL [facility] STATUS: Home (Routine DC) PAYOR: Medicare [...] Garces Date Saved: 04/21/2019 01:56 pm Normal [facility] Patient Summaryon 02-02-2019 Patient Summary PATIENT DISCHARGE IN STRUCTIONS If you are having an emergency and are not able to reach your physician, CALL 911 or go to the nearest emergency room and take this document with you. [facility] 02/02/19 09:32 [address] [place]. [address] PATIENT INFORMATION Name: ANGELIKA MUIR Address: [address] [place] [id number] Age: 78 Years Phone: [phone] : 1940 12:00 MRN: ([facility])-[id number] Sex: Female Race: White Ethnicity: Not Hispan/Lat Admitted From: Clinic or [facility] Medical Service: Orthopedic Surgery Nurse Unit/Bed: (CO) 2N 0219-01 Admit Date: 01/30/2019 05:59 PCP: Edith SIEGEL , Eduardo Hedrick PHYSICIANS INVOLVED WITH CARE Attending Physicians: Amrik Vickers MD - Orthopaedic Surg Admitting Physician: Amrik Vickers MD - Orthopaedic Surg Primary Care Physician:Edith SIEGEL , Eduardo Hedrick,Internal Medicine, - Consults: Elbert Gleason MD - Internal Medicine RAMÍREZ Rod - Internal Medicine FOLLOW-UP APPOINTMENTS: Provider: Specialty: Address: Date: Amrik Vickers MD Orthopaedic Surg [address] [facility] [address] (1) Six Weeks Comment: Call for an Appointment Provider: Specialty: Address: Date: Eduardo Rose MD Internal Medicine [address] [facility] [address] (1) Follow-up as needed Provider: Specialty: Address: Date: [facility]: [facility] [phone] Follow-up as needed ALLERGIES: No Known Medication [...] doses are changed, or new medications (including tmux-hko-wdxronl products) are added. 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 If you are in a mental health crisis, or having thoughts of suicide, please call the nationwide suicide hotline, anytime day or night, at 6-454-560-ZUSB. Important information about accessing your health information through the [facility] If you initiated the self-registration process for [employer] during your stay, please check your personal email for an invitation to enroll in [facility] and complete the steps outlined in the email. If you would prefer to enroll while in the hospital, ask a member of your care team. We would be happy to assist you. If you have already enrolled in [facility], go to [email or web address] to login and access your health information. Thank you for choosing [facility]. PATIENT EDUCATION Fall Prevention in the Home [...] wet floors. ???Place frequently used items in lzlm-vo-fnkit places. ???If you need to reach for something above you, use a sturdy step stool that has a grab bar. ???Keep electrical cables out of the way. ???Do not use floor austrian or wax that makes floors slippery. If [...] include working with a physical therapist or security trainer to improve your strength, balance, and endurance. This information is not intended to replace advice given to you by your health care provider. Make sure you discuss any questions you have with your health care provider. Document Released: 02/26/2003 Document Revised: 07/23/2015 Document Reviewed: 04/12/2015 [employer] Interactive Patient Education ?2016 [employer]. Incentive Spirometer An incentive spirometer is a [...] 07/19/2007 Document Revised: 03/29/2015 Document Reviewed: 10/15/2014 [employer] Interactive Patient Education ?2016 [employer]. Pain Medicine Instructions HOW CAN PAIN MEDICINE [...] liver damage. Acetaminophen is found in many yqgr-xqx-mrezklm (OTC) and prescription medicines. If you are [...] 06/14/2001 Document Revised: 07/23/2015 Document Reviewed: 01/10/2015 [employer] Interactive Patient Education ?2016 [employer] Preventing Constipation After Surgery Constipation is when [...] a bowel movement. ???Having hard, dry, or xzwjmc-cqtu-fhadri stools. ???Feeling full or bloated. ???Having pain in the lower abdomen. ???Not feeling relief after having a bowel movement. HOME CARE INSTRUCTIONS Diet ???Eat foods that have a lot of fiber. These include fruits, vegetables, whole grains, and beans. Limit foods high in fat and processed sugars. These include swazi fries, hamburgers, cookies, and candy. ???Take a [...] softener, laxative, or fiber supplement. ???Only take wxlg-odc-xaomnkr or prescription medicines as directed by your [...] 07/03/2013 Document Revised: 03/29/2015 Document Reviewed: 07/03/2013 [employer] Interactive Patient Education ?2016 [employer]. Venous Thromboembolism, Prevention A venous thromboembolism is [...] 02/24/2010 Document Revised: 11/30/2012 Document Reviewed: 07/03/2015 [employer] Interactive Patient Education ?2015 [employer] VIRUSES OR BACTERIA: WHAT'S GOT YOU [...] Relationship to Patient Clinician Signature Date/Time Normal [facility] Basic Metabolic Panelon 01-20 Calcium [Mass/Vol] 8.4 mg/dL Low 8.5-10.6 [facility] Chloride [Moles/Vol] 105 mmol/L Normal 98-107 [facility] CO2 [Moles/Vol] 32 mmol/L Normal 21-32 [facility] Creatinine [Mass/Vol] 0.77 mg/dL Normal 0.55-1.02 [facility] Glucose [Mass/Vol] 108 mg/dL High 70-99 [facility] Potassium [Moles/Vol] 4.1 mmol/L Normal 3.5-5.1 [facility] Sodium [Moles/Vol] 141 mmol/L Normal 136-145 [facility] Urea nitrogen (BldV) [Mass/Vol] 20 mg/dL High 7.0-18.0 [facility] Urea nitrogen/Creatin ine [Mass ratio] 26 mg/mg Normal [facility] Basic Metabolic Panelon 01-20 Calcium [Mass/Vol] 8.4 mg/dL Low 8.5-10.6 [facility] Chloride [Moles/Vol] 105 mmol/L Normal 98-107 [facility] CO2 [Moles/Vol] 31 mmol/L Normal 21-32 [facility] Creatinine [Mass/Vol] 0.86 mg/dL Normal 0.55-1.02 [facility] Glucose [Mass/Vol] 101 mg/dL High 70-99 [facility] Potassium [Moles/Vol] 4.1 mmol/L Normal 3.5-5.1 [facility] Sodium [Moles/Vol] 140 mmol/L Normal 136-145 [facility] Urea nitrogen (BldV) [Mass/Vol] 21 mg/dL High 7.0-18.0 [facility] Urea nitrogen/Creatin ine [Mass ratio] 24 mg/mg Normal [facility] Anesthesia Recordon 01-31-20 Anesthesia Record Patient: ANGELIKA MUIR MRN: [facility])-[id number] Age: 78 years Sex: Female : 1940 Associated Diagnoses: None Author: Nadine Barrera MD Procedure Time Out [place] Protocol: patient identity verified, site verified, side verified, procedure to be done verified, patient position verified. REGIONAL ANESTHESIA PROCEDURE Procedure date and begin time: See nurses notes. Procedure date and end time: See nurses notes. Performed by: Nadnie Barrera MD. Assisted by: no phys assistant. Informed consent: signed by patient. Technique: [...] Diagnosis: M25.561 M17.11 Knee Pain . Normal [facility] Anesthesia Record Patient: ANGELIKA MUIR MRN: [id number] Age: 78 years Sex: Female : 1940 Associated Diagnoses: None Author: Nadine Brarera MD Procedure Time Out [place] Protocol: patient identity verified, site verified, side verified, procedure to be done verified, patient position verified. REGIONAL ANESTHESIA PROCEDURE Procedure date and begin time: See nurses notes. Procedure date and end time: See nurses notes. Performed by: Nadine Barrera MD. Assisted by: no phys assistant. Informed consent: signed by patient. Technique: [...] M25.561 M17.11 Knee Pain OA . Normal [facility] Basic Metabolic Panelon 01-20 Calcium [Mass/Vol] 9.0 mg/dL Normal 8.5-10.6 [facility] Chloride [Moles/Vol] 106 mmol/L Normal 98-107 [facility] CO2 [Moles/Vol] 29 mmol/L Normal 21-32 [facility] Creatinine [Mass/Vol] 0.84 mg/dL Normal 0.55-1.02 [facility] Glucose [Mass/Vol] 105 mg/dL High 70-99 [facility] Potassium [Moles/Vol] 3.7 mmol/L Normal 3.5-5.1 [facility] Sodium [Moles/Vol] 143 mmol/L Normal 136-145 [facility] Urea nitrogen (BldV) [Mass/Vol] 23 mg/dL High 7.0-18.0 [facility] Urea nitrogen/Creatin ine [Mass ratio] 27 mg/mg Normal [facility] OR Nursingon 01-30-2019 OR Nursing Normal [facility] PACU I Nursingon 01-30-2019 PACU I Nursing CO NA PACU I Nursing Record Summary Primary Physician: Amrik Vickers MD Finalized Date/Time: 01/30/19 12:48:37 Pt. Name: ANGELIKA MUIR/Sex: 1940 Female Med Rec #: [id number] Physician: Amrik Vickers MD Financial #: [id number] Pt. Type: I Room/Bed: [address] [place] [address] Admit/Disch: 01/30/19 05:59:00 - Institution: [place] NA [...] By: Ana Rosas RN 01/30/19 12:48 Normal [facility] PreOp Nursingon 01-30-2019 PreOp Nursing [place] NA PreOp Nursing Record Summary Primary Physician: Amrik Vickers MD Finalized Date/Time: 01/30/19 09:02:48 Pt. Name: ANGELIKA MUIR/Sex: 1940 Female Med Rec #: [id number] Physician: Amrik Vickers MD Financial #: [id number] Pt. Type: I Room/Bed: / Admit/Disch: 01/30/19 05:59:00 - Institution: [place] NA OR PreOp Case Times Entry 1 PreOp Case Times In Room Time 01/30/19 06:51:00 Out Room Time 01/30/19 08:32:00 Last Modified By: Chelsy Batista RN 01/30/19 09:02:45 CO NA OR PreOp Case Attendees Entry 1 Case Attendee Alexandra EUCEDA , Evaristo Role Performed RN Last Modified By: Evaristo Morris RN 01/30/19 07:11:35 Finalized By: Chelsy Batista RN Document Signatures Signed By: Chelsy Batista RN 01/30/19 09:02 Normal [facility] Basic Metabolic Panelon 12-22 Calcium [Mass/Vol] 9.0 mg/dL Normal 8.5-10.6 [facility] Chloride [Moles/Vol] 103 mmol/L Normal 98-107 [facility] CO2 [Moles/Vol] 31 mmol/L Normal 21-32 [facility] Creatinine [Mass/Vol] 0.78 mg/dL Normal 0.55-1.02 [facility] Glucose [Mass/Vol] 90 mg/dL Normal 70-99 [facility] Potassium [Moles/Vol] 4.1 mmol/L Normal 3.5-5.1 [facility] Sodium [Moles/Vol] 142 mmol/L Normal 136-145 [facility] Urea nitrogen (BldV) [Mass/Vol] 19 mg/dL High 7.0-18.0 [facility] Urea nitrogen/Creatin ine [Mass ratio] 24 mg/mg Normal [facility] CBC with Differentialon 12-22 Basophils (Bld) [#/Vol] 0.0 thou/mcL Normal 0.0-0.2 [facility] Basophils/100 WBC (Bld) 0.8 % Normal 0-3 [facility] Differential cell count method Nom (Bld) AUTOMATED DIFFERENTIAL Normal [facility] Eosinophils (Bld) [#/Vol] 0.1 thou/mcL Normal 0.0-0.4 [facility] Eosinophils/100 WBC (Bld) 2.0 % Normal 0-7 [facility] Erythrocyte distribution width (RBC) [Entitic vol] 14.4 % Normal 11.7-15.0 [facility] Hematocrit (Bld) [Volume fraction] 36.7 % Normal 34.0-50.0 [facility] Hemoglobin (Bld) [Mass/Vol] 12.1 g/dL Normal 11.5-17.0 [facility] Lymphocytes (Bld) [#/Vol] 1.3 thou/mcL Normal 0.7-4.5 [facility] Lymphocytes/100 WBC (Bld) 26.0 % Normal 14-46 [facility] MCH (RBC) [Entitic mass] 29.2 Picograms Normal 27.0-34.0 [facility] MCHC (RBC) [Mass/Vol] 32.9 g/dL Normal 32.0-36.0 [facility] MCV (RBC) [Entitic vol] 88.7 fL Normal 80-98 [facility] Monocytes (Bld) [#/Vol] 0.4 thou/mcL Normal 0.1-1.0 [facility] Monocytes/100 WBC (Bld) 8.5 % Normal 4-13 [facility] Neutrophils (Bld) [#/Vol] 3.1 thou/mcL Normal 1.5-7.8 [facility] Neutrophils/100 WBC (Bld) 62.7 % Normal 40-74 [facility] Platelet mean volume (Bld) [Entitic vol] 8.4 fL Normal 7.5-11.2 [facility] Platelets (Bld) [#/Vol] 214 thou/mcL Normal 140-415 [facility] RBC (Bld) [#/Vol] 4.13 x(10)6/mcL Normal 3.80-5.60 [facility] WBC (Bld) [#/Vol] 5.0 thou/mcL Normal 4.0-10.5 [facility] Culture Methicillin Resistan t Staph aureuson 01-19-2019 MRSA isol Org specific cx Ql (Unsp spec) [facility] Microbiology PROCEDURE: Culture Methicillin Resistant Staph aureus SOURCE: Nasal Swab BODY SITE: COLLECTED DATE/TIME: 01/19/2019 15:10 EDT RECEIVED DATE/TIME: 01/19/2019 15:10 EDT START DATE/TIME: 01/19/2019 15:10 EDT FREE TEXT SOURCE: NASAL SWAB-. INTERFACED REPORTS Final Report [] Verified Date/Time/Personnel: 01/20/2019 21:24 EDT CONTRIBUTOR_SYSTEM, CO_PN *MRSA SCREEN* NEGATIVE FOR METHICILLIN(OXACILLIN) RESISTANT STAPHYLOCOCCUS AUREUS. Normal [facility] Comment on above: Performed By: #### [id number] #### [place] [id number] [place], [place] Partial Thromboplastin Time (aPTT)on 01-19-2019 aPTT Coag (PPP) [Time] 31 Sec Normal 23.2-34.6 [facility] Prothrombin Timeon 9 INR Coag (Bld) [Relative time] 1.0 {INR} Normal [facility] Comment on above: Result Comment: DURING THE INDUCTION PHA SE OF ORAL ANTICOAGULATION, THE INR MAY NOT REFLECT THE ANTICOAGULANT STATUS OF THE PATIENT. THERAPEUTIC RANGES FOR INR'S ARE: MOST CLINICAL SITUATIONS: INR 2.0-3.0 MECHANICAL PROSTHETIC VALVES: INR 2.5-3.5 CRITICAL: INR 5.0 PT Coag (PPP) [Time] 12.6 Sec Normal 11.9-14.6 [facility] XR C-Spine 4-5 Viewson 01-19 XR [...] disease, notably advanced at C5-C6 and C6-C7. [place] thanks you for the opportunity to care for your patient. Workstation ID: [id number] FINAL REPORT Dictated By: Fritz Styles MD 01/19/2019 21:13 Assigned Physician: Fritz Styles MD Reviewed and Electronically Signed By: Fritz Styles MD 01/19/2019 21:17 Transcribed by: JESSIE 01/19/2019 21:13 Technologist: KAYLIN Normal [facility] Culture Anaerobicon 10-19-19 19 Bacteria identified Anaer cx Nom (Unsp spec) [facility] Microbiology PROCEDURE: Culture Anaerobic SOURCE: Joint Fl [...] 20:16 EDT CONTRIBUTOR_SYSTEM, CO_PN CULTURE IN PROGRESS [facility] Comment on above: Performed By: #### [id number] #### [address] Culture Body Fluid + Suscept ibility + Smear Directon 10-18-2018 Bacteria identified Sterile body fluid culture Nom (Unsp spec) [facility] Microbiology PROCEDURE: Culture Body Fluid + Susceptibility [...] NO EPITHELIALS SEEN, NO ORGANISMS SEEN Normal [facility] Comment on above: Performed By: #### [id number] #### [facility] [address] [place], [place] Culture Funguson 10-18-2018 Fungus identified Cx Nom (Unsp spec) [facility] Microbiology PROCEDURE: Culture Fungus SOURCE: Joint Fl [...] WILL BE HELD FOR 1-4 WEEKS Normal [facility] Comment on above: Performed By: #### [id number] #### [facility] [address] [place], [place] XR SHOULDER LEFT MIN 2 VIEWS [...] I have reviewed andapproved this report. 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 Isaw her in our [place] office. She has had a complete evaluation [...] 11/06/2016/03:29 P/Ankur France M.D.Date Trans: 11/07/2016 06:05 A/Tyrese_JN:[id number]: Eduardo Rose M.D. [address] [place] [address] [facility] Vital Signs Date Time Vital Sign Value Performing Clinician Facility 04-02-2023 09:47-0500 Body height 162.6 cm Veronica BERMUDEZ Work Phone: [facility] 04-02-2023 09:47-0500 Body mass index (BMI) [Ratio] 30.21 kg/m2 Veronica BERMUDEZ Work Phone: [facility] 04-02-2023 09:47-0500 Body temperature 97 [degF] Veronica BERMUDEZ Work Phone: [facility] 04-02-2023 09:47-0500 Body weight 79.83 kg Veronica BERMUDEZ Work Phone: [facility] 04-02-2023 09:47-0500 Diastolic blood pressure 70 mm[Hg] Veronica BERMUDEZ Work Phone: [facility] 04-02-2023 09:47-0500 Heart rate 105 /min Veronica BERMUDEZ Work Phone: [facility] 04-02-2023 09:47-0500 Respiratory rate 16 /min Veronica ANAYAP Work Phone: [employer] 04-02-2023 09:47-0500 SaO2% (BldA) [Mass fraction] 97 % Veronica Chahal APRNJOSEPHP Work Phone: [facility] 04-02-2023 09:47-0500 Systolic blood pressure 130 mm[Hg] Veronica ANAYAP Work Phone: [employer] 03-24-2021 15:45-0500 Body height 166.37 cm Yolanda Schwerer Other [facility] Other 03-24-2021 15:45-0500 Body mass index (BMI) [Ratio] 35.23 kg/m2 Yolanda Schwerer Other [facility] Other 03-24-2021 15:45-0500 Body temperature 99.4 [degF] Yolanda Schwerer Other [facility] Other 03-24-2021 15:45-0500 Body weight 97.52 kg Yolanda Schwerer Other [facility] Other 03-24-2021 15:45-0500 Diastolic blood pressure 78 mm[Hg] Yolanda Schwerer Other [facility] Other 03-24-2021 15:45-0500 SaO2% (BldA) [Mass fraction] 96 % Yolanda Schwerer Other [facility] Other 03-24-2021 15:45-0500 Systolic blood pressure 132 mm[Hg] Yolanda Schwerer Other [facility] Other Encounters Encounter Date Encounter Type Care Provider Facility Start: 05-10-2023 End: 05-11-2023 ambulatory Tony Holguin MD Facility: [facility] Start: 04-19-2023 End: 04-20-2023 Orders Only Veronica Chahal WALLP[employer] SALES REPRESENTATIVE Work Phone: [facility] - [facility] Comment on above: Bilateral hip pain ( Primary Dx) Start: 04-02-2023 End: 04-02-2023 [facility] Start: 04-02-2023 End: 04-02-2023 Office outpatient visit 15 minutes Veronica Chahal WALLP[employer] SALES REPRESENTATIVE Work Phone: [facility] - [facility] Comment on above: PMR (polymyalgia rhe umatica) ([facility] (Primary Dx); Bilateral hip pain; Confusion caused by a drug Start: 09-07-2022 End: 09-07-2022 ambulatory Gennaro Cheng Facility:[facility] Start: 05-25-2022 End: 05-26-[address] SARIKA MUHAMMAD . Facility: Start: 07-15-2021 End: 07-15-2021 ambulatory Yolanda Schwerer Other [facility] Other Start: 07-15-2021 Telephone encounter Yolanda Schwerer [facility] Start: 04-28-2021 End: 04-28-2021 ambulatory Yolanda Schwerer Other [facility] Other Start: 04-28-2021 Telephone encounter Yolanda Schwerer [facility] Start: 04-03-2021 End: 04-03-2021 ambulatory Yolanda Schwerer Other [facility] Other Start: 04-03-2021 Telephone encounter Yolanda Schwerer [facility] Start: 03-24-2021 End: 03-24-2021 ambulatory Yolanda Schwerer Other [facility] Other Start: 03-24-2021 Office outpatient visit 15 minutes Yolanda Gloverr [facility] [place] Start: 03-20-2021 End: 03-20-2021 ambulatory Yolanda Gloverr Other [facility] Other Start: 03-20-2021 Telephone encounter Yolanda Gloverr [facility] [employer] Start: 03-03-2021 End: 03-03-2021 ambulatory Yolanda Gloverr Other [facility] Other Start: 03-03-2021 Telephone encounter Yolanda Calvo [facility] [place] Start: 07-21-2017 Ambulatory JOSE LUIS LIZAMA [facility] Start: 11-06-2016 End: 11-07-2016 Ambulatory ANKUR FRANCE Facility:[facility] Procedures Date Procedure Procedure Detail Performing Clinician Start: 12-23-2022 Adult depression screening assessment Veronica Chahal [employer] SALES REPRESENTATIVE Work Phone: Start: 06-18-2015 H/O: artificial joint Status p ost total shoulder arthroplasty Veronica Chahal [employer] SALES REPRESENTATIVE Work Phone: Plan of Treatment Date Care Activity Detail Author Start: 04-02-2024 Adult [facility]ening [facility] Start: 04-02-2024 Tobacco Screening Tobacco Screening [facility] Start: 12-24-2023 Depression Screening Depression Scre ening [facility] Start: 12-24-2023 Fall Risk Screening [facility] Start: 12-24-2023 Tobacco Screening [facility] Start: 04-02-2023 End: 04-02-2024 XR Hip - bilateral 2 Views X-ray hips bilateral with or without pelvis 2 views Imaging Routine Bilateral hip pain Expected: 04/02/2023, Expires: 04/02/2024 [facility] Work Phone: Comment on above: Expected: 04/02/2023 , Expires: 04/02/2024 Start: 11-20-2022 Influenza vaccination Influenza Vacc ine [facility] Start: 1959 DTaP,Tdap and Td Vaccines (1 - Tdap) DTaP,Tdap and Td Vaccines (1 - Tdap) [facility] Start: 02-24-1958 Adult BMI Follow Up Plan Adult BMI Follow Up Plan [facility] Start: 1940 Medicare Annual Well ness Visit Medicare Annual Wellness Visit [facility] Immunizations Immunization Date Immunization Notes Care Provider Fa cility 05-25-2022 COVID-19, mRNA, LNP- S, PF, 100mcg/0.5mL Dose Veronica Chahal [employer] SALES REPRESENTATIVE Work Phone: [facility] 10-24-2021 zoster vaccine recombinant Veronica Chahal [employer] SALES REPRESENTATIVE Work Phone: [facility] 07-22-2021 zoster vaccine recombinant Veronica Chahal [employer] SALES REPRESENTATIVE Work Phone: [facility] 05-09-2021 Influenza, injectabl e, Madin Tanya Canine Kidney, preservative free, quadrivalent Veronica Chahal WALLP[employer] SALES REPRESENTATIVE Work Phone: [facility] 05-09-2021 influenza virus vaccine, unspecified formulation Veronica Chahal WALLP[employer] SALES REPRESENTATIVE Work Phone: [facility] 07-05-2020 COVID-19 Vaccine Pfi zer - Documentation Purposes Only Yolanda [employer] Other [facility] Other 06-07-2020 COVID-19 Vaccine Pfi zer - Documentation Purposes Only [employer]ise [employer] Other [facility] Other 05-02-2018 influenza, seasonal, injectable, preservative free Veronica Chahal WALLP[employer] SALES REPRESENTATIVE Work Phone: [facility] 04-30-2018 zoster vaccine recombinant Yolanda Schwerer Other [facility] Other 01-06-2018 influenza, high dose seasonal, preservative-free Veronica Chahal WALLP[employer] SALES REPRESENTATIVE Work Phone: [facility] 01-06-2018 zoster vaccine recombinant Yolanda Schwerer Other [facility] Other 03-19-2017 pneumococcal conjuga te vaccine, 13 valent Yolanda Schwerer Other [facility] Other 02-25-2017 influenza, high dose seasonal, preservative-free Veronica Chahal WALLP[employer] SALES REPRESENTATIVE Work Phone: [employer] 04-27-2016 pneumococcal polysaccharide vaccine, 23 valent Yolanda Schwerer Other [facility] Other 12-18-2014 pneumococcal polysaccharide vaccine, 23 valent Yolanda Schwerer Other [facility] Other 12-18-2014 zoster vaccine, live Yolanda Schwerer Other [facility] Other 02-11-2009 zoster vaccine, live Yolanda Schwerer Other [facility] Other Payers Date Payer Category Payer Self-pay 2015 Unknown [id number] 2003 Medicare [id number] 2003 Medicare [id number] 2003 Medicare [id number] 1959 Medicare [id number] 1959 Unknown [id number] 2. [id number] 1940 Unknown [id number] 1940 Unknown [id number] [id number] 1940 Unknown [id number] 2.16. [id number] 1940 Unknown [id number] 2.16. [id number] Medicare [id number] 2.1 [id number] Unknown [id number] [id number] Social History Date Type Detail Facility Unknown if ever smoked [facility] Other Start: 05-02-2020 End: 04-02-[address] [facility] Start: 01-06-2022 Tobacco smoking stat [place] [facility] Ex-smoker [facility] History of tobacco use Current smoker [facility] History of tobacco use Cigarette Smoker P [facility] Start: 01-06-2022 Tobacco use and exposure Smokeless tobacco non-user [facility] Start: 04-02-2023 Alcohol intake Ex-drinker (finding) [facility] Start: 05-02-2020 End: 04-02-2023 History of Social function [facility] Adolescent depressio n screening assessment 0 [facility] Start: 01-06-2022 Tobacco Comment only smoked fo r 3 months 60 years ago, 2 cigarettes a day [facility] Start: 10-15-2021 Alcohol Comment rare- on new years e ve [facility] Start: 1940 Sex Assigned At Not on file P [facility] Clinical Notes 04-18-2020 to 04-02-2023 Veronica Chahal, WALLP[employer]ER[employer] SALES REPRESENTATIVE - 04/02/2023 10:00 AM EST Note Date & Type Note Facility 04-02-2023 History of Present illness Narrative Subjective Patient ID: Angelika Muir is a 83 y.o. female. Here today because she is having an adverse reaction to her prednisone dose She was up to 4 - 5 mg tablets daily and she was getting very confused and hallucinating Since then they had her evaluated in the ER and they ruled out UTI, pneumonia and they dropped her dose to 3 tablets daily and she is no longer confused and hallucinating but now she is having pain again She presents today with her POA (Coral) with a desire to get a referral to pain management for an alternate plan of care It was rather difficult getting a clear pattern of what her current level of pain is but she continues to have pain in her hips when she is up and moving around on a daily basis It is greater in her right than her left hip The generalized pain she had with her PMR has subsided I suspect from her story that the dose of her prednisone has gradually increased as it hasn't been clear that she is having arthritic pain in her hips vs her generalized PMR pain which is currently managed The following portions of the patient's history were reviewed and updated as appropriate: allergies, current medications, past family history, past medical history, past social history, past surgical history, problem list, and medication reconciliation was completed including current medication and post discharge medication. Review of Systems Constitutional: Negative. HENT: Negative. Eyes: Negative. Respiratory: Negative. Cardiovascular: Negative. Gastrointestinal: Negative. Endocrine: Negative. Genitourinary: Negative. Musculoskeletal: Positive for arthralgias, gait problem and myalgias. Skin: Negative. Psychiatric/Behavioral: Positive for agitation and hallucinations. The patient is nervous/anxious. Objective Physical Exam Vitals and nursing note reviewed. Exam conducted with a rebar fabricator present (ES Moncada present). Neck: Vascular: No carotid bruit. Cardiovascular: Rate and Rhythm: Normal rate and regular rhythm. Heart sounds: Normal heart sounds. No murmur heard. Pulmonary: Effort: Pulmonary effort is normal. Breath sounds: Normal breath sounds. Musculoskeletal: General: Tenderness (bilateral hips) present. Cervical back: Neck supple. Right lower leg: No edema. Left lower leg: No edema. Lymphadenopathy: Cervical: No cervical adenopathy. Skin: General: Skin is warm and dry. Neurological: Mental Status: She is alert and oriented to person, place, and time. Gait: Gait abnormal (has cane). Psychiatric: Attention and Perception: Attention normal. Mood and Affect: Mood is anxious. Speech: Speech normal. Behavior: Behavior normal. Thought Content: Thought content normal. Cognition and Memory: Cognition normal. Judgment: Judgment normal. Assessment/Plan Angelika was seen today for osteoarthritis. Diagnoses and all orders for this visit: PMR (polymyalgia rheumatica) ([facility]) - Ambulatory referral to Pain Management ([facility]); Future - pregabalin (LYRICA) 50 mg capsule; Take 1 capsule (50 mg total) by mouth in the morning. Bilateral hip pain - Ambulatory referral to Pain Management ([facility]); Future - X-ray hips bilateral with or without pelvis 2 views; Future Confusion caused by a drug Since dropping her dose to 3 tablets her confusion and hallucinations have subsided I do suspect her PMR and osteoarthritis are getting confused and her prednisone needs to be further reduced and her osteoarthritis needs to be addressed in another manner Will try using lyrica and see how she does as she doesn't want to use neurontin but with caution that is she has any altered mentation either she or her POA will notify me I do think pain management a good option as she may benefit from injections in the hips and will get x-rays of the hips and see how her current joints look, she has had replacements in the past If she responds to the lyrica will decrease the dose of prednisone to 10 mg and then ultimately to 5 mg Explained that it is unlikely she would do well with no prednisone as this tends to be a hallmark of PMR therapy AIDAN El 04/02/23 1303 documented in this encounter [facility]500px 05-24-2022 Note PROCEDURE: XR HIP RT 2 [...] authenticated by: CAMILO ARNOLD Date: 2022-05-24 19:59 [facility] 03-24-2021 Evaluation note Encounter Date Diagnosis Assessment Notes Mar, Skin rash (ICD-10 - R21) i think eczema, will do clobetasol she already has this. will continue on lotramin. she will call in a few days if not improved. [facility] Other 03-11-2021 NoteHNO ID: [id number] Author: Negro Pompa Service: ? Author Type: Physician Type: Progress Notes Filed: 05/30/2020 6:55 PM Note Text: [facility] [...] All questions and concerns were addressed. Negro Pompa, [facility]01-28-2021 NotePatient Outreach (COOCC3) ANGELIKA MUIR ([id number]) 1940 F Date Time Provider Department 04/18/20 GEMA PENNY NELLY During your visit today, we recorded the following information about you: Allergies As of Date: 04/18/2020 Noted Allergy Reaction TAPE (ADHESIVE TAPE (ROSINS)) 06/28/2012 2 - Rash Date Reviewed: 01/09/2020 Reviewed by: Niru Cunningham - Fully Assessed Order(s):SARS-COVID VACCINE 1ST DOSE APPT [[id number]] Order #: [id number] FUTURE Prescriptions as of 04/18/2020 Sig: SERTRALINE [...] 01/10/2014 Encounter Status:Closed by EPIC, PRODUSER on 04/22/20[facility] Evaluation noteNo AarkiHomer [employer] Other Evaluation note* Diagnosis PMR (polymyalgia rheumatica) ([facility])- Primary Polymyalgia rheumatica Bilateral hip pain Pain in joint, pelvic region and thigh Confusion caused by a drug Drug-induced delirium [facility] Bilateral hip pain- Primary Pain in joint, pelvic region and thigh [facility] - Reported* Type Description Date Medical History hx of Low BP Medical History vertigo Medical History depression Surgical History CARDIAC LOOP RECORDER IMPLANT Surgical History BILATERAL HIP ARTHROPLASTY Surgical History BILATERAL [facility] JOINT ARTHROPLAST Y Surgical History TRIGGER RELEASE RIGHT RING FING ER Surgical History BILATRAL FOOT SURGERY Surgical History LEFT TOTAL SHOULDER X2 Hospitalization History see surgical hx [facility] Other InstructionsNot on filedocumented in this encounter [facility] HospitalIndependent Comedy Network SystemInstructionsNot on filedocumented in this encounter [employer] Summary Purpose Family History No Family History [...] Assessments Note Patient: ANGELIKA MUIR MR N: [id number] Age: 78 years Sex: Female : 1940 Associated Diagnoses: None Author: Elbert Gleason MD Assessment Assessment Diagnosis: Osteoarthritis (ATZ32-DO M17.11, 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 Right TKA. Dr. Vickers. [...] Pain is currently described as intermittent but sjfmajfe-am-epmtyi, particularly with activity. Symptoms have failed to respond to more conservative measures, and she now presents for surgical intervention. Please see below regarding the status of active medical conditions and assessment and plan for preoperative medical risk stratification. Medical Illnesses: 1. Osteoarthritis affecting (more content not included)... Note CLINICAL SUMMARY Please take this summary document to your follow up appointments. [facility] 02/02/19 09:[address] [place] [address]. [id number] PATIENT INFORMATION Name: ANGELIKA MUIR [address]: [address] [place] [id number] Age: 78 Years Phone: [phone] : 1940 12:00 MRN: [id number] Sex: Female Race: White Ethnicity: Not Hispan/Lat Admitted From: Clinic or [facility] Medical Service: Orthopedic Surgery Nurse Unit/Bed: (CO) 2NAN 0219-01 Admit Date: 01/30/2019 05:59 PCP: Eduardo Rose MD PHYSICIANS INVOLVED WITH CARE Attending Physicians: Amrik Vickers MD J - Orthopaedic Surg Admitting Physician: Amrik Vickers MD - Orthopaedic Surg Primary Care Physician:Eduardo Rose MD,Internal Medicine, - Consults: Elbert Gleason MD - Internal Medicine RAMÍREZ Rod (more content not included)... Note Patient: ANGELIKA MUIR MR N: [id number] Age: 78 years Sex: Female : 1940 [...] (more content not included)... Note HNO ID: [id number] Author: Cheryle Wilcox (Aa) Service: ? Author Type: Setup Technician Type: Anesthesia Procedure Notes Filed: 05/01/2020 3:33 PM Note Text: ANESTHESIOLOGY PROCEDURE NOTE Airway General Information Procedure Start Time/Medication Administration: 05/01/2020 3:28 PM Patient location during procedure: OR Timeout Performed Pre-procedure: timeout performed Consent Obtained: Yes Patient identity confirmed: arm band, care meat team lead and patient Staffing Anesthesiologist: Ihsan Gamino CAA: Ankur Wilcox (Aa) Indications and Patient Condition Preoxygenated: yes Patient position: sniffing Indications for airway management: anesthesia anesthesia circuit Method: asleep Final Airway Details Final airway type: supraglottic airway Final Supraglottic Airway: IGEL Size 4 Seal Adequate: yes SIGNATURE: AZ Gonzales PATIENT NAME: Angelika Muir DATE: May 01, 2020 TIME: 3:33 PM CSN: [id number] Note HNO ID: [id number] Author: Ariana Gay Service: Urology Author Type: Resident Type: Brief Op Note Filed: 05/01/2020 4:09 PM Note Text: BRIEF OPERATIVE / PROCEDURE NOTE LOG ID: [id number] SURGERY/PROCEDURE DATE: 05/01/2020 INCISION/PROCEDURE START TIME: 3:28 PM INCISION CLOSE/PROCEDURE END TIME: 4:05 PM SURGEON(S)/PROCEDURALIST(S) AND INK JET OPERATOR(S): Surgeon(s) and Role: * Negro Pompa [...] 01, 2020 TIME: 4:07 PM PAGER/CONTACT #: [id number] (more content not included)... Hospital Course Note CLINICAL SUMMARY Please take this summary document to your follow up appointments. [facility] 02/02/19 09:32 [address] [place]. [address] PATIENT INFORMATION Name: ANGELIKA MUIR Address: [address] [place] [phone] Age: 78 Years Phone: [phone] : 1940 12:[birth year] Sex: Female Race: White Ethnicity: Not Hispan/Lat Admitted From: Clinic or [facility] Medical Service: Orthopedic Surgery Nurse Unit/Bed: (CO) 2NAN 0219-01 Admit Date: 01/30/2019 05:59 PCP: Eduardo Rose MD PHYSICIANS INVOLVED WITH CARE Attending Physicians: Rancho SIEGEL , Amrik Sutton - Orthopaedic Surg Admitting Physician: Rancho SIEGEL , Amrik Sutton - Orthopaedic Surg Primary Care Physician:Eduardo Rose MD,Internal Medicine, - Consults: Elbert Gleason MD - Internal Medicine RAMÍREZ Rod (more content not included)... Procedure Findings Note HNO ID: [id number] Author: Cheryle Wilcox (Aa) Service: ? Author Type: Setup Technician Type: Anesthesia Procedure Notes Filed: 05/01/2020 3:33 PM Note Text: ANESTHESIOLOGY PROCEDURE NOTE Airway General Information Procedure Start Time/Medication Administration: 05/01/2020 3:28 PM Patient location during procedure: OR Timeout Performed Pre-procedure: timeout performed Consent Obtained: Yes Patient identity confirmed: arm band, care meat team lead and patient Staffing Anesthesiologist: Ihsan Gamino CAA: Ankur Wilcox (Aa) Indications and Patient Condition Preoxygenated: yes Patient position: sniffing Indications for airway management: anesthesia anesthesia circuit Method: asleep Final Airway Details Final airway type: supraglottic airway Final Supraglottic Airway: IGEL Size 4 Seal Adequate: yes SIGNATURE: AZ Gonzales PATIENT NAME: Angelika Muir DATE: May 01, 2020 TIME: 3:33 PM CSN: [id number] Note HNO ID: [id number] Author: Ariana kaplan (Martina) Victor Hugo Service: Urology Author Type: Resident Type: Brief Op Note Filed: 05/01/2020 4:09 PM Note Text: BRIEF OPERATIVE / PROCEDURE NOTE LOG ID: [id number] SURGERY/PROCEDURE DATE: 05/01/2020 INCISION/PROCEDURE START TIME: 3:28 PM INCISION CLOSE/PROCEDURE END TIME: 4:05 PM SURGEON(S)/PROCEDURALIST(S) AND INK JET OPERATOR(S): Surgeon(s) and Role: * Negro Pompa [...] included)... Note Patient: ANGELIKA MUIR MR N: [id number] [facility]: [id number] Age: 78 years Sex: Female : 1940 [...] not anticipate sign (more content not included)... Reason for Referral Specialty Diagnoses / Procedures Referred By Александр t Referred To Contact Diagnoses PMR (polymyalgia rheumatica) ([facility]) Veronica Chahal, W[employer] SALES REPRESENTATIVE [address] [place] [address] Referral ID Status Reason Start Date Expiration Date V isits Requested Visits Authorized [id number] Pending Review 1 1 Specialty Diagnoses / Procedures Referred By Александр t Referred To Contact Pain Medicine Diagnoses PMR (polymyalgia rheumatica) ([facility]) Bilateral hip pain Veronica Chahal, WALLP[employer] SALES REPRESENTATIVE [address] [place] [address] [address] Referral ID Status Reason Start Date Expiration Date V isits Requested Visits Authorized [id number] Pending Review 04/02/2023 04/01/2024 1 1 Additional Source Comments INFORMATION SOURCE (unrecogn ized section and content) DATE CREATED AUTHOR 09/09/2017 [facility] DATE CREATED AUTHOR AUTHOR'S ORGANIZ ATION 09/15/2017 [facility] DATE CREATED AUTHOR AUTHOR'S ORGANIZ ATION 02/06/2019 [facility] DATE CREATED AUTHOR AUTHOR'S ORGANIZ ATION 11/22/2019 [facility] DATE CREATED AUTHOR AUTHOR'S ORGANIZ ATION 05/08/2020 [facility] DATE CREATED AUTHOR AUTHOR'S ORGANIZ ATION 04/05/2021 [facility] DATE CREATED AUTHOR AUTHOR'S ORGANIZ ATION 05/31/2022 [facility] DATE CREATED AUTHOR AUTHOR'S ORGANIZ ATION 09/21/2022 [facility] DATE CREATED AUTHOR AUTHOR'S ORGANIZ ATION 04/04/2023 [facility] DATE CREATED AUTHOR AUTHOR'S ORGANIZ ATION 05/22/2023 [facility] REASON FOR VISIT (unrecogniz ed section and content) Reason Comments Osteoarthritis Pain management Care Teams (unrecognized sec tion and content) Medical Staff Assistant Relationship Specialty Start Date End Date Otis Chaves DO [address] [place] [address] PCP - General Family Medicine 10/03/21 Medical Staff Assistant Relationship Specialty Start Date End Date Otis Chaves DO [address], [place] [address] PCP - General Family Medicine 10/03/21 FOR RECORDS PERTAINING TO PATIENTS WHO ARE [...] BE BASED ON THE PRIMARY CLINICAL RECORDS. [employer] provides no warranty or guarantee of the accuracy or completeness of information in this document.
[2023-05-24 11:06] VITALS: BP 142/91; PULSE 107; RESP 16; TEMP 36.6; O2SAT 97
[2023-05-24 11:44] VITALS: BP 152/78; BP 156/72; PULSE 82; PULSE 87; RESP 18; O2SAT 96; O2SAT 97
[2023-05-24] MEDS: BUPIVACAINE HCL 0.25% PF 25 MG/10 ML VIAL 6 ML INJ (11:44)
[2023-05-24] MEDS: LIDOCAINE HCL 2% PF 100 MG/5 ML VIAL 3 ML INJ (11:44)
--- NOTE | 2023-05-24 11:50 | W.PM.PROCNOT ---
Date of procedure: 05/24/23 Pre-op diagnosis: Lumbar spondylosis Post-op diagnosis: same as pre-op Procedure: Procedure: Bilateral L4-5, L5-S1 medial branch block Medications: Bupivacaine 0.25% 6cc The patient was seen and examined in the preoperative holding area.? An informed consent was obtained and placed on the chart.? The patient was brought to the medical procedure unit and placed in the prone position.? A timeout was completed verifying correct patient, procedure site, positioning, plan, and special equipment.? Using aseptic technique, the needle was placed at left L4. Under direct fluoroscopic visualization a Quincke-tipped spinal needle was advanced to the junction of the superior articulating process with the transverse process at the designated medial branch segment.? Preceded by negative aspiration, the above-mentioned injectate was placed in 1 mL aliquots.? The procedure was repeated at left L5, S1.? The needle was removed and insertion site was covered. The same procedure, at the same levels, was completed on the right side. The patient was taken to the postprocedural recovery area and monitored for an appropriate length of time before found suitable for discharge in the company of a responsible adult. Anesthesia: Local Surgeon: Tony Holguin Pathology: none sent Condition: stable Disposition: no change
== END 2023-05-24 11:56 | disposition home or self-care (01) ==
LOC: SURGOUT 08:13
PROVIDERS: PCP Family Medicine; Visit Provider Anesthesiology
DX: M47.816 Spondylosis without myelopathy or radiculopathy, lumbar region (principal)
CPT/HCPCS: 64493; 64494

== ENCOUNTER 2023-06-23 14:18 | Outpatient (OUT) | payer MEDICARE, OTHER, SELFPAY ==
--- NOTE | 2023-06-23 14:58 | P.CN_ITS ---
Consult Note: HPI Data of Consult Patient: known to practice within the last 3 years Consult date: 05/10/23 Requesting Physician: Jamaica Garcia NP Primary Care Provider: FRANKI CHAVES Consult Narrative Reason for consult: low back pain Narrative: 83yof who presents for assessment. continues to have significant low back pain that is worsened with ambulation. 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 continues in provider directed home exercise program for >6 weeks, with minimal benefit. denies adverse med side effects. Patient recently underwent bilateral L4-5 L5-S1 facet medial branch block #1 without moderate improvement in pain or functional ability. Patient continues to have moderate to severe pain, would not provide VAS today. Reports stabbing hot pain increasing with standing walking bending activity, pain decreased with sitting and sleep. cc:: CC: Jamaica Garcia NP Review of Systems ROS Status of ROS 10 or more systems reviewed and unremark able except as noted in history and below Musculoskeletal Reports: back pain PFSH PFSH Medical History Rheumatoid arthritis ?M06.9 - Rheumatoid arthritis, unspecified (ICD-10) H/O malignant neoplasm of breast ?Z85.3 - Personal history of malignant neoplasm of breast (ICD-10) Kidney stone ?N20.0 - Calculus of kidney (ICD-10) Smoker ?F17.200 - Nicotine dependence, unspecified, uncomplicated (ICD-10) Surgical History Status post total shoulder arthroplasty ?Z96.619 - Presence of unspecified artificial shoulder joint (ICD-10) H/O foot surgery ?Z98.890 - Other specified postprocedural states (ICD-10) H/O hand surgery ?Z98.890 - Other specified postprocedural states (ICD-10) S/P total knee arthroplasty ?Z96.659 - Presence of unspecified artificial knee joint (ICD-10) S/P total hip arthroplasty ?Z96.649 - Presence of unspecified artificial hip joint (ICD-10) H/O thumb surgery ?Z98.890 - Other specified postprocedural states (ICD-10) Hx of tonsillectomy ?Z90.89 - Acquired absence of other organs (ICD-10) Family History Other Lumbago Meds Home Medications and Allergies Home Medications ?Medication ?Instructions ?Recorded ?Confirmed ?Type prednisone 5 mg tablet 20 mg PO DAILY 02/09/23 05/24/23 History Allergies Allergy/AdvReac Type Severity Reaction Status Date / Time No Known Drug Allergies Allergy Verified 05/24/23 11:14 Exam Narrative Exam Narrative: Psych-alert and oriented x 3. Attentive and appropriate, constitutionally normal, displays normal mood and affect per situation.? There are no obvious deficits in memory, reasoning, or intellect.? Skin-no obvious rashes, bruising, erythema noted to the patient's area of pain. Extremities- extremities are warm with minimal edema and palpable pulses. Lumbar-no significant tenderness to palpation noted in the lumbar spine and par aspinal musculature.? Pain is elicited with extension, and lateral rotation of the lumbar spine. Range of motion is slightly diminished with these motions due to pain. Facet loading maneuvers are positive bilaterally and do appear to be concordant with the patient's normal complaints of pain.? Coordination remains intact.? Gait remains non-antalgic. Constitutional Documenting provider has reviewed patient's vital signs: yes Common normals: no apparent distress, oriented x3, healthy appearing, alert and well nourished General appearance: cooperative HENMT Common normals: normocephalic, hearing grossly normal bilaterally and moist oral mucous membranes Head and scalp: normocephalic Eye Common normals: PERRL Pupil: PERRL Neck & C-Spine Common normals: full ROM General: normal visual inspection Chest Common normals: inspection of chest normal Respiratory Common normals: normal respiratory effort, no retractions and no use of accessory muscles Neuro Common normals: oriented x3, CN's II-XII intact bilaterally, moves all extremities, no focal motor deficits, no sensory deficits noted and deep tendon reflexes 2+ bilaterally Sensorium/orientation: alert Motor exam: strength 5/5 throughout and no movement abnormalities noted Psych Common normals: mental status grossly normal, thought process normal, cooperative, affect normal, speech normal and activity/motor behavior normal Speech: normal speech Thought process: normal thought process Results Additional Findings Additional findings: If on a controlled substance or opioids, I have checked an [place]ARRS report on this patient and there are no aberrancies noted in the prescribing history.??If on a controlled substance or opioid a drug screen was completed and reviewed within the last year, and if there has not been a drug screen completed we ordered one today to monitor higher risk, state monitored pain medication use. As part of providing excellent, safe, comprehensive care, the following was completed at our patient's visit: 1. A medication reconciliation and review to ensure accurate knowledge of current/active medications, including asking our patients to inform us about any arpa-sqo-zgsdzvy medications or herbal remedies/nutritional supplements/alternative remedies. 2. A review to specifically ensure our patients have had annual screening for screening for depression, screening for tobacco use, and screening for unhealthy alcohol use. For concerning screenings had a discussion with the patient, provided patient education, and recommended follow-up with primary care provider when appropriate. If patient noted with a risk of falling, they received education on strength, gait, and balance training to prevent future risk of falling. Assessment and Plan Assessment and Plan (1) Lumbar stenosis with neurogenic claudication: (2) Lumbar spondylosis: Plan lumbar MRI without contrast for chronic low back pain unresponsive to PT/HEP greater than 6 weeks, medication therapy, and injection therapy. Essential to formulate additional injection/procedure options continue HEP as tolerated continue current medications, tolerating well without side effects f/u after MRI
== END 2023-06-23 14:19 | disposition home or self-care (01) ==
LOC: PM 14:18
PROVIDERS: PCP Family Medicine; Visit Provider Nurse Practitioner
DX: M48.062 Spinal stenosis, lumbar region with neurogenic claudication (principal); M47.816 Spondylosis without myelopathy or radiculopathy, lumbar region
CPT/HCPCS: G0463

== ENCOUNTER 2023-07-01 09:25 | Outpatient (OUT) | payer MEDICARE, OTHER, SELFPAY ==
--- OUTSIDE RECORDS SUMMARY | 2023-07-01 09:36 | XMS_ITS | CCD ---
Author Organization [facility] Care Team Providers Care Retail Wireless Associate Name Role Phone LIZAMA, JOSE LUIS Y Unavailable Unavailable SELF, SELF Unavailable Unavailable ROSE, EDUARDO P Unavailable Unavailable LIZAMA, JOSE LUIS Y Unavailable Unavailable LIZAMA, JOSE LUIS Y Unavailable Unavailable ROSE, EDUARDO P Unavailable Unavailable KOSMADALYN, ANKUR Sutton Unavailable Unavailable KOSINSKIANKUR Unavailable Unavailable ROSE, EDUARDO Unavailable Unavailable ROSE, EDUARDO Unavailable Unavailable Schwerer, Yolanda Unavailable SABINA ., DR SARIKA Osullivan Attending Unavailable MUHAMMAD ., DR SARIKA Osullivan Admitting Unavailable MUHAMMAD ., DR SARIKA Osullivan Consulting Unavailable MISC, DR GARVEY Primary Care Unavailable MISC, DR GARVEY Consulting Unavailable ZIEBER, DR IHSAN Lane Consulting Unavailable ESTELA CHUN Consulting Unavailable JORY MCMILLAN Consulting Unavailable CAMILO ARNOLD Consulting Unavailable JELANI MAR Consulting Unavailable ALVINO BENITEZ Consulting Unavailable MARIA ELENA GRAHAM Consulting Unavailable SISTER, WALI Consulting Unavailable Gennaro Cheng Attending Unavailable Gennaro Cheng Admitting Unavailable Schwerer, Yolanda E Primary Care Unavailable Furlong Otis IBANEZ Primary Care Provider [phone] OTIS CHAVES Referring Unavailable FURLONG, OTIS G Primary Care Unavailable EHSANNGOTIS Attending Unavailable FURLONG, OTIS G Referring Unavailable FURLONG, OTIS G Primary Care Unavailable FURLONG, OTIS Jett Attending Unavailable FURLONG, OTIS G Referring Unavailable FURLONG, OTIS G Primary Care Unavailable VERONICA CHAHAL Attending Unavailable FURLONG, OTIS G Referring Unavailable FURLONG, OTIS G Primary Care Unavailable Chelsie SIEGEL, Tony Rodríguez Attending Unavailable Chelsie SIEGEL, Tony Rodríguez Attending Unavailable Chelsie SIEGELTony Attending Unavailable Allergies Allergy Classification Reported Allergen(s) Allergy Type Date of Onset Reaction(s) Facility (1 source) 14121,00; Translations: [63917,00] Propensity to adverse reactions (disorder) 9 [facility] (7 sources) Adhesive agent; Translations: [ADHESIVE] Propensity to adverse reactions to drug 3 Rash [facility] (7 sources) Fludrocortisone ; Translations: [FLUDROCORTISON E] Drug Allergy 2 Other (See Comments) [facility] (7 sources) Other; Translations: [OTHER] Propensity to adverse reactions 6 [facility] Medications Current Medications Medication Drug Class(es) Dates [...] Nov, Active gabapentin 100 mg oral capsule (4 sources) Anti-epileptic Agent Start: 04-19-2023 take 1 capsule [...] day Active predniSONE 5 mg oral tablet (5 sources) Start: take 1 tablet by mouth in the morning predniSONE (DELTASONE) 5 mg tablet Take 1 tablet (5 mg total) by mouth in the morning. 0 03/24/2023 Active pregabalin 50 mg oral capsule (2 sources) Start: End: take 1 capsule by mouth in the morning pregabalin (LYRICA) 50 mg capsule Indications: PMR (polymyalgia rheumatica) ([facility]) Take 1 capsule (50 mg total) by [...] mg Start: 01-17-2018 Supartz Dec 25 mg naproxen 250 mg oral tablet (3 sources) Nonsteroidal Anti-inflammatory Drug End: 05-24-2023 take 1 tablet by mouth in the morning, then take 1 tablet by mouth at mealtime naproxen (NAPROSYN) 250 mg tablet Take 1 tablet (250 mg total) by mouth in the morning and 1 tablet (250 mg total) in the evening. Take with meals. 0 05/24/2023 Discontinued (Therapy completed) Triamcinolone (1 source) Corticosteroid Start: 11-16-2017 Kenalog -40 mg Oct, 10 mg Problems Active Problems Problem Classification Problem Date Documented Date Episodic/Chronic Asthma (5 sources) Asthma; Translations: [Unspecified asthma, uncomplicated] Onset: 11-28-2021 11-28-2021 Chronic Coronary atherosclerosis and other heart disease (6 sources) Atherosclerotic heart disease of [place] coronary artery without angina pectoris; Translations: [Coronary atherosclerosis] Onset: 01-13-2012 11-28-2021 Chronic Diabetes mellitus without complication (3 sources) Hyperglycemia; Translations: [Hyperglycemia, unspecified] Onset: 05-24-2023 05-24-2023 Episodic Genitourinary symptoms and ill-defined conditions (10 sources) Mixed urinary incontinence; Translations: [Mixed incontinence] Onset: 11-28-2021 11-28-2021 Chronic Osteoarthritis (13 sources) Osteoarthritis of right knee joint; Translations: [Unilateral primary osteoarthritis, right knee] Onset: 04-02-2023 Chronic Other aftercare (1 source) 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; Translations: [OTH [facility] CURRENT DRUG THERAPY] Onset: 05-28-2022 Episodic Other connective tissue disease (2 sources) Polymyalgia rheumatica; Translations: [POLYMYALGIA RHEUMATICA] Onset: 05-28-2022 Chronic Other connective tissue disease (1 source) Presence of artificial hip joint, bilateral; Translations: [PRESENCE ARTIFICIAL HIP JOINT BILAT] Onset: 05-28-2022 Chronic Other connective tissue disease (7 sources) Polymyalgia rheumatica; Translations: [Polymyalgia rheumatica] Onset: 07-08-2022 04-02-2023 Chronic Other connective tissue disease (1 source) Muscle weakness (generalized); Translations: [MUSCLE WEAKNESS GENERALIZED] Onset: 05-28-2022 Episodic Other diseases of kidney and ureters (2 sources) Abnormal renal function; Translations: [Disorder of kidney and ureter, unspecified] 05-24-2023 Episodic Other diseases of kidney and ureters (2 sources) Disorder of kidney and ureter, unspecified; Translations: [Disorder of kidney and ureter, unspecified] Onset: 05-24-2023 Episodic Other ear and sense organ disorders (5 sources) Sensorineural hearing loss, bilateral; Translations: [Sensorineural [...] [Pain in left hip] Onset: 04-02-2023 Episodic Other nutritional; endocrine; and metabolic disorders (1 source) Obesity caused by energy imbalance; Translations: [Other obesity due to excess calories] 05-24-2023 Chronic Other nutritional; endocrine; and metabolic disorders (2 sources) Other obesity due to excess calories; Translations: [Other obesity due to excess calories] Onset: 05-24-2023 Chronic Other nutritional; endocrine; and metabolic disorders (2 sources) Body mass index (BMI) 31.0-31.9, adult; Translations: [Body mass index (BMI) 31.0-31.9, adult] Onset: 05-24-2023 Chronic Residual codes; unclassified (5 sources) Obstructive sleep apnea syndrome; Translations: [Obstructive sleep apnea (adult) (pediatric)] Onset: 12-21-2007 11-28-2021 Chronic Residual codes; unclassified (6 sources) Insomnia; Translations: [Insomnia, unspecified] Episodic Residual codes; unclassified (1 source) Drug-induced delirium; Translations: [Disorientation, unspecified] 04-02-2023 Episodic Residual codes; unclassified (1 source) Memory impairment; Translations: [Other amnesia] 05-24-2023 Episodic Residual codes; unclassified (2 sources) Other amnesia; Translations: [Other amnesia] Onset: 05-24-2023 Episodic Residual codes; unclassified (1 source) Memory loss Onset: 05-24-2023 Episodic Screening or history of mental health and substance abuse (3 sources) Personal history of nicotine dependence; Translations: [Patient encounter status] Onset: 11-06-2016 06-27-2023 Episodic Unclassified (1 source) Condition Update / 178() Onset: 07-21-2017 Unclassified (1 source) Sleep apnea, unspecified; Translations: [SLEEP APNEA, UNSPECIFIED] Onset: 11-06-2016 Unclassified (2 sources) Unknown / UNK(Unknown) Onset: 11-06-2016 Unclassified (1 source) CONTACT W/AND (SUSP) EXPOS COVID-19; Translations: [CONTACT W/AND (SUSP) EXPOS COVID-19] Onset: 05-28-2022 Past or Other Problems Problem Classification Problem Date Documented Date Episodic/Chronic Cancer of breast (5 sources) Malignant neoplasm of female breast; Translations: [Malignant neoplasm of unspecified site of unspecified female breast] Onset: 01-08-2012 Resolved: 05-24-2023 11-28-2021 Chronic Cancer of breast (1 source) Personal history of malignant neoplasm of breast; Translations: [PERSONAL HISTORY OF MALIGNANT NEOPLASM OF BREAST] Onset: 11-06-2016 Episodic Chronic ulcer of skin (5 sources) Ulcer of lower extremity; Translations: [Non-pressure chronic ulcer of unspecified part of left lower leg limited to breakdown of skin] Onset: 06-26-2022 Resolved: 05-24-2023 06-26-2022 Chronic Complications of surgical procedures or medical care (5 sources) Non-healing surgical wound; Translations: [Other complications of procedures, not elsewhere classified, initial encounter] Onset: 12-05-2021 Resolved: 03-11-2022 03-11-2022 Episodic Essential hypertension (11 sources) Essential hypertension; Translations: [Essential (primary) hypertension] Onset: 11-28-2021 Resolved: 05-24-2023 11-28-2021 Chronic Genitourinary symptoms and ill-defined conditions (7 sources) Urgent desire to urinate; Translations: [Urgency of urination] Onset: 11-28-2021 11-28-2021 Episodic Mood disorders (16 sources) Mood disorder; Translations: [Unspecified mood [affective] disorder] Onset: 12-21-2007 Resolved: 06-26-2022 06-26-2022 Chronic Mood disorders (5 sources) Mood disorders Onset: 12-23-2022 Resolved: 06-24-2023 12-23-2022 Open wounds of extremities (5 sources) Open wound of left lower leg; Translations: [Unspecified open wound, left lower leg, initial encounter] Onset: 11-27-2021 11-27-2021 Episodic Other aftercare (1 source) 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; Translations: [FCI (CURRENT) USE OF ASPIRIN] Onset: 11-06-2016 Episodic Other connective tissue disease (5 sources) History of right total knee replacement; Translations: [Presence of right artificial knee joint] Onset: 11-28-2021 Resolved: 06-26-2022 06-26-2022 Chronic Other connective tissue disease (5 sources) Tear of right rotator cuff; Translations: [Unspecified rotator cuff tear or rupture of right shoulder, not specified as traumatic] Onset: 06-03-2016 06-03-2016 Episodic Other connective tissue disease (5 sources) Trochanteric bursitis; Translations: [Trochanteric bursitis, left hip] Onset: 01-02-2022 01-02-2022 Episodic Other diseases of bladder and urethra (5 sources) Urethral stricture; Translations: [Unspecified urethral stricture, male, unspecified site] Onset: 11-28-2021 11-28-2021 Episodic Other diseases of veins and lymphatics (11 sources) Stasis dermatitis; Translations: [Venous insufficiency (chronic) (peripheral)] Onset: 11-28-2021 11-28-2021 Episodic Other nervous system disorders (5 sources) Abnormal gait; Translations: [Unspecified abnormalities of gait and mobility] Onset: 11-28-2021 11-28-2021 Episodic Other non-epithelial cancer of skin (15 sources) Malignant neoplasm of skin of lower leg; Translations: [Unspecified malignant neoplasm of skin of right lower limb, including hip] Onset: 11-28-2021 Resolved: 06-26-2022 01-02-2022 Episodic Other nutritional; endocrine; and metabolic disorders (5 sources) Severe obesity; Translations: [Morbid (severe) obesity due to excess calories] Onset: 06-26-2022 Resolved: 07-07-2022 07-07-2022 Chronic Other skin disorders (1 source) Rash and other nonspecific skin eruption Onset: 03-24-2021 Resolved: 03-24-2021 Episodic Swati-; endo-; and myocarditis; cardiomyopathy (except that caused by tuberculosis or sexually transmitted disease) (5 sources) Disorder of pericardium; Translations: [Disease of pericardium, unspecified] Onset: 01-08-2012 11-28-2021 Episodic Rheumatoid arthritis and related disease (5 sources) Rheumatoid arthritis; Translations: [Rheumatoid arthritis, unspecified] Onset: 06-03-2016 Resolved: 07-08-2022 07-08-2022 Chronic Syncope (9 sources) Syncope and collapse; Translations: [Syncope and collapse] Onset: 09-26-2012 11-28-2021 Episodic Unclassified (1 source) Condition Update; Translations: [Condition Update] Onset: 07-21-2017 Results Test Name Value Interpretation Reference Range Facility POCT urinalysis dipstick onl yOrdered By: Demetrio Huitron on 05-25-2023 Appearance (U) cloudy [facility] External Poct Urine Bilirubin Moderate [facility] External Poct Urine Blood Negative [facility] External Poct Urine Color orange [facility] External Poct Urine Glucose Negative [facility] External Poct Urine Ketones Trace [facility] External Poct Urine Leukocyte Esterase Negative [facility] External Poct Urine Nitrite Negative [facility] External Poct Urine Ph 5.5 [facility] External Poct Urine Protein Trace [facility] External Poct Urine Specific [place] 1.030 [facility] External Poct Urine Urobilinogen 0.2 [facility] COMPREHENSIVE METABOLIC PANE Iam 05-24-2023 Albumin [Mass/Vol] 3.6 g/dL Normal 3.2-5.3 [facility] Comment on above: Performed By: #### KRISTY, 3016-3 #### [facility] ([id number]) [address], [address] [place] [address] ALP [Catalytic activity/Vol] 103 U/L Normal 39-130 [facility] Comment on above: Performed By: #### KRISTY, 3016-3 #### [facility] ([id number]) [address], [address] [place] [address] ALT [Catalytic activity/Vol] 10 U/L Normal 0-31 [facility] Comment on above: Performed By: #### KRISTY, 3016-3 #### [facility] ([id number]) [address], [address] [place] [address] Anion gap [Moles/Vol] 9 mmol/L Normal 5-15 [facility] Comment on above: Performed By: #### KRISTY, 6-3 #### [facility] ([id number]) [address], [address] [place] [address] AST [Catalytic activity/Vol] 16 U/L Normal 0-41 [facility] Comment on above: Performed By: #### KRISTY, 6-3 #### [facility] ([id number]) [address], [address] [place] [address] Bilirubin [Mass/Vol] 0.4 mg/dL Normal 0.3-1.2 [facility] Comment on above: Performed By: #### KRISTY, 6-3 #### [facility] ([id number]) [address], [address] [place] [address] Calcium [Mass/Vol] 9.5 mg/dL Normal 8.5-10.5 [facility] Comment on above: Performed By: #### KRISTY, 6-3 #### [facility] ([id number]) [address], [address] [place] [address] Chloride [Moles/Vol] 105 mmol/L Normal 98-109 [facility] Comment on above: Performed By: #### KRISTY, 6-3 #### [facility] ([id number]) [address], [address] [place] [address] CO2 [Moles/Vol] 31 mmol/L Normal 22-32 [facility] Comment on above: Performed By: #### KRISTY, 6-3 #### [facility] ([id number]) [address], [address] [place] [address] Creatinine [Mass/Vol] 0.99 mg/dL Normal 0.40-1.00 [facility] Comment on above: Result Comment: METHOD TRACEABLE TO IDMS STANDARD Performed By: #### C MELO, 6-3 #### [facility] ([id number]) [address], [address] [place] [address] GFR/1.73 sq M.predicted among non-blacks MDRD (S/P/Bld) [Vol rate/Area] 56 mL/min/{1.73_m2} Low >59 [facility] Comment on above: Result Comment: Reported eGFR is based on the CKD-EPI 2020 equation that does not use a race coefficient. Performed By: #### C MELO, 6-3 #### [facility] ([id number]) [address], [address] [place] [address] Glucose [Mass/Vol] 103 mg/dL High 65-99 [facility] Comment on above: Performed By: #### KRISTY, 6-3 #### [facility] ([id number]) [address], [address] [place] [address] Potassium [Moles/Vol] 3.9 mmol/L Normal 3.5-5.0 [facility] Comment on above: Performed By: #### KRISTY, 6-3 #### [facility] ([id number]) [address], [address] [place] [address] Protein [Mass/Vol] 7.1 g/dL Normal 6.0-8.0 [facility] Comment on above: Performed By: #### KRISTY, 6-3 #### [facility] ([id number]) [address], [address] [place] [address] Sodium [Moles/Vol] 145 mmol/L Normal 134-146 [facility] Comment on above: Performed By: #### KRISTY, 6-3 #### [facility] ([id number]) [address], [address] [place] [address] Urea nitrogen [Mass/Vol] 18 mg/dL Normal 5-27 [facility] Comment on above: Performed By: #### CMP, 3016-3 #### [facility] ([id number]) [address], [address] [place] [address] Comprehensive metabolic pane iam 05-24-2023 Albumin [Mass/Vol] 3.6 g/dL 3.2 - 5.3 g/dL [facility] ALP [Catalytic activity/Vol] 103 U/L 39 - 130 U/L [facility] ALT No additional P-5'-P [Catalytic activity/Vol] 10 U/L 0 - 31 U/L [facility] Anion gap [Moles/Vol] 9 mmol/L 5 - 15 mmol/L [facility] AST [Catalytic activity/Vol] 16 U/L 0 - 41 U/L [facility] Bilirubin [Mass/Vol] 0.4 mg/dL 0.3 - 1.2 mg/dL [facility] Calcium [Mass/Vol] 9.5 mg/dL 8.5 - 10.5 mg/dL [facility] Chloride [Moles/Vol] 105 mmol/L 98 - 109 mmol/L [facility] CO2 [Moles/Vol] 31 mmol/L 22 - 32 mmol/L [facility] Creatinine [Mass/Vol] 0.99 mg/dL 0.40 - 1.00 mg/dL [facility] Comment on above: METHOD TRACEABLE TO IDDE STANDARD eGFR (CKD-EPI)non-rac e dependent 56 Low - PINF [facility] Comment on above: Reported eGFR is based on the CKD-EPI 2020 equation that does not use a race coefficient. Glucose [Mass/Vol] 103 mg/dL High 65 - 99 mg/dL [facility] Interpretation and review of laboratory results Abnormal [facility] Potassium [Moles/Vol] 3.9 mmol/L 3.5 - 5.0 mmol/L [facility] Protein [Mass/Vol] 7.1 g/dL 6.0 - 8.0 g/dL [facility] Sodium [Moles/Vol] 145 mmol/L 134 - 146 mmol/L [facility] Urea nitrogen [Mass/Vol] 18 mg/dL 5 - 27 mg/dL [facility] HGB A1C (GLYCO-HGB)on 2023 Glucose [Mass/Vol] 126 mg/dL Normal [facility] Comment on above: Performed By: #### CMP, 3016-3 #### [facility] ([id number]) [address], [address] [place] [address] HbA1c (Bld) [Mass fraction] 6.0 % High 4.4-5.6 [facility] Comment on above: Result Comment: NOTE ADA Guidelines Result HgbA1c Normal : less than 5.7 % Prediabetes : 5.7 % to 6.4 % Diabetes : > 6.4 % Use with caution in patients with abnormal hemoglobin variants as the half-life of red blood cells and in vivo glycation rates are affected. Performed By: #### C MP, 6-3 #### [facility] ([id number]) [address], [address] [place] [address] TSHon 05-24-2023 TSH Qn 2.13 m[IU]/L [facility] TSH Qnon 05-24-2023 [facility] TSH 2.13 uIU/mL Normal 0.49-4.67 [facility] Comment on above: Performed By: #### CMP, 3016-3 #### [facility] ([id number]) [address], [address] [place] [address] TAO Antinuclear Antibodieson 09-07-2022 Antinuclear Abs, IFA Positive Critically abnormal . [facility] Comment on above: Result Comment: Negative <1:80 Borderline 1:80 Positive >1:80 Performed By: #### T 4F, TSH3, CRP, CMP, ESR, CBC #### [facility] [address] Homogeneous Pattern 1:160 High . [facility] Comment on above: Result Comment: ICAP nomenclature: AC-1 Performed By: #### T 4F, TSH3, CRP, CMP, ESR, CBC #### [facility] [address] Note 1 Normal . [facility] Comment on above: Result Comment: For more information abo ut Hep-2 cell patterns use [employer], the official website for the International Consensus on Antinuclear Antibody (TAO) Patterns (ICAP). A positive TAO result may occur in healthy individuals (low titer) or be associated with a variety of diseases. See interpretation chart which is not all inclusive: Pattern Antigen Detected Suggested Disease Association Homogeneous DNA(ds,ss), SLE - High titers Nucleosomes, Histones Drug-induced SLE Speckled Sm, POLO COACH, SCL-70, SLE,MCTD,PSS (diffuse form), SS-A/SS-B Sjogrens Nucleolar SCL-70, PM-1/SCL High titers Scleroderma, PM/DM Centromere Centromere PSS (limited form) w/Crest syndrome variable Nuclear Dot [id number] Primary Biliary Cirrhosis Nuclear GP210, Primary Biliary Cirrhosis Membrane vickey A,B,C Performed at: [facility] [id number] Meat Molder: Naldo Valdez PhD, Phone: [phone] PERFORMED BY: [place] [address] PATHOLOGIST [employer]UST[employer] HE[employer] SPECIALIST JORGE LUIS RUELAS M.D. Performed By: #### T 4F, TSH3, CRP, CMP, ESR, CBC #### [address] C-Reactive Proteinon 023 C-Reactive Protein 0.8 mg/dL High 0.0-0.5 [facility] Comment on above: Performed By: #### T4F, TSH3, CRP, CMP, ESR, CBC #### [address] Complete Blood Count Auto Di ffon 09-07-2022 Basophils (Bld) [#/Vol] 0.1 10*3/uL Normal 0.0-0.2 [facility] Comment on above: Performed By: #### T4F, TSH3, CRP, CMP, ESR, CBC #### [address] Basophils/100 WBC (Bld) 1.0 % Normal . [facility] Comment on above: Performed By: #### T4F, TSH3, CRP, CMP, ESR, CBC #### [address] Eosinophils (Bld) [#/Vol] 0.1 10*3/uL Normal 0.0-0.45 [facility] Comment on above: Performed By: #### T4F, TSH3, CRP, CMP, ESR, CBC #### [address] Eosinophils/100 WBC (Bld) 1.0 % Normal . [facility] Comment on above: Performed By: #### T4F, TSH3, CRP, CMP, ESR, CBC #### [address] Erythrocyte distribution width (RBC) [Ratio] 15.0 % Normal 11.9-15.3 [facility] Comment on above: Performed By: #### T4F, TSH3, CRP, CMP, ESR, CBC #### [address] Hematocrit (Bld) [Volume fraction] 36.3 % Normal 34.0-46.4 [facility] Comment on above: Performed By: #### T4F, TSH3, CRP, CMP, ESR, CBC #### [address] Hemoglobin (Bld) [Mass/Vol] 11.8 g/dL Normal 11.8-15.4 [facility] Comment on above: Performed By: #### T4F, TSH3, CRP, CMP, ESR, CBC #### [address] Lymphocytes (Bld) [#/Vol] 1.4 10*3/uL Normal 1.00-4.8 [facility] Comment on above: Performed By: #### T4F, TSH3, CRP, CMP, ESR, CBC #### [address] Lymphocytes/100 WBC (Bld) 20.9 % Normal . [facility] Comment on above: Performed By: #### T4F, TSH3, CRP, CMP, ESR, CBC #### [address] MCH (RBC) [Entitic mass] 28.9 pg Normal 24.7-34.3 [facility] Comment on above: Performed By: #### T4F, TSH3, CRP, CMP, ESR, CBC #### [address] MCV (RBC) [Entitic vol] 88.4 fL Normal 80-100 [facility] Comment on above: Performed By: #### T4F, TSH3, CRP, CMP, ESR, CBC #### [address] Mean Corpuscular HGB Conc 32.7 g/dL Normal 32.0-35.0 [facility] Comment on above: Performed By: #### T4F, TSH3, CRP, CMP, ESR, CBC #### [address] Monocytes (Bld) [#/Vol] 0.6 10*3/uL Normal 0.0-0.8 [facility] Comment on above: Performed By: #### T4F, TSH3, CRP, CMP, ESR, CBC #### [address] Monocytes/100 WBC (Bld) 9.2 % Normal . [facility] Comment on above: Performed By: #### T4F, TSH3, CRP, CMP, ESR, CBC #### [address] Neutrophils (Bld) [#/Vol] 4.4 10*3/uL Normal 1.8-7.7 [facility] Comment on above: Performed By: #### T4F, TSH3, CRP, CMP, ESR, CBC #### [address] Neutrophils/100 WBC (Bld) 67.9 % Normal . [facility] Comment on above: Performed By: #### T4F, TSH3, CRP, CMP, ESR, CBC #### [address] NRBC% 0.1 /100{WBC} Normal 0-0.5 [facility] Comment on above: Performed By: #### T4F, TSH3, CRP, CMP, ESR, CBC #### [address] Platelet mean volume (Bld) [Entitic vol] 8.8 fL Normal 6.3-10.7 [facility] Comment on above: Performed By: #### T4F, TSH3, CRP, CMP, ESR, CBC #### [address] Platelets (Bld) [#/Vol] 272 10*3/uL Normal 150-450 [facility] Comment on above: Performed By: #### T4F, TSH3, CRP, CMP, ESR, CBC #### [address] RBC (Bld) [#/Vol] 4.11 10*6/uL Normal 3.60-5.00 [facility] Comment on above: Performed By: #### T4F, TSH3, CRP, CMP, ESR, CBC #### [address] WBC (Bld) [#/Vol] 6.5 10*3/uL Normal 3.8-11.6 [facility] Comment on above: Performed By: #### T4F, TSH3, CRP, CMP, ESR, CBC #### [address] Comprehensive Metabolic Pane iam 09-07-2022 Albumin [Mass/Vol] 3.7 g/dL Normal 3.5-5.7 [facility] Comment on above: Performed By: #### T4F, TSH3, CRP, CMP, ESR, CBC #### [address] Albumin/Globulin [Mass ratio] 1.4 {ratio} Normal [facility] Comment on above: Performed By: #### T4F, TSH3, CRP, CMP, ESR, CBC #### [facility] [address] [place] [address] ALP [Catalytic activity/Vol] 83 U/L Normal 34-104 [facility] Comment on above: Performed By: #### T4F, TSH3, CRP, CMP, ESR, CBC #### [address] ALT [Catalytic activity/Vol] 9 U/L Normal 7-52 [facility] Comment on above: Performed By: #### T4F, TSH3, CRP, CMP, ESR, CBC #### [address] Anion gap [Moles/Vol] 11.9 mmol/L Normal 6.0-15.0 [facility] Comment on above: Performed By: #### T4F, TSH3, CRP, CMP, ESR, CBC #### [address] AST [Catalytic activity/Vol] 12 U/L Low 13-39 [facility] Comment on above: Performed By: #### T4F, TSH3, CRP, CMP, ESR, CBC #### [address] Bilirubin [Mass/Vol] 0.4 mg/dL Normal 0.3-1.0 [facility] Comment on above: Performed By: #### T4F, TSH3, CRP, CMP, ESR, CBC #### [address] Calcium [Mass/Vol] 9.0 mg/dL Normal 8.6-10.3 [facility] Comment on above: Performed By: #### T4F, TSH3, CRP, CMP, ESR, CBC #### [address] Chloride [Moles/Vol] 105 mmol/L Normal 98-107 [facility] Comment on above: Performed By: #### T4F, TSH3, CRP, CMP, ESR, CBC #### [place] [address] [place] CO2 [Moles/Vol] 30.4 mmol/L Normal 21.0-31.0 [facility] Comment on above: Performed By: #### T4F, TSH3, CRP, CMP, ESR, CBC #### [facility] [address] Creatinine [Mass/Vol] 0.92 mg/dL Normal 0.60-1.20 [facility] Comment on above: Performed By: #### T4F, TSH3, CRP, CMP, ESR, CBC #### [place] [address] [place] GFR/1.73 sq M.predicted MDRD (S/P/Bld) [Vol rate/Area] mL/min/{1.73_m2} [facility] Comment on above: Performed By: #### T4F, TSH3, CRP, CMP, ESR, CBC #### [address] Globulin (S) [Mass/Vol] 2.6 g/dL Normal [facility] Comment on above: Performed By: #### T4F, TSH3, CRP, CMP, ESR, CBC #### [address] Glucose [Mass/Vol] 92 mg/dL Normal 70-100 [facility] Comment on above: Result Comment: Random Glucose Reference Range is dependent on time and content of last meal. Glucose of more than 200 mg/dL in a nonstressed, ambulatory subject supports the diagnosis of Diabetes Mellitus. ADA recommended reference range Performed By: #### T 4F, TSH3, CRP, CMP, ESR, CBC #### [address] Potassium [Moles/Vol] 4.3 mmol/L Normal 3.5-5.1 [facility] Comment on above: Performed By: #### T4F, TSH3, CRP, CMP, ESR, CBC #### [address] Protein [Mass/Vol] 6.3 g/dL Low 6.4-8.9 [facility] Comment on above: Performed By: #### T4F, TSH3, CRP, CMP, ESR, CBC #### [facility] [address] [place] [address] [place] Sodium [Moles/Vol] 143 mmol/L Normal 136-145 [facility] Comment on above: Performed By: #### T4F, TSH3, CRP, CMP, ESR, CBC #### [facility] [address] [place] [address] [place] Urea nitrogen [Mass/Vol] 21 mg/dL Normal 7-25 [facility] Comment on above: Performed By: #### T4F, TSH3, CRP, CMP, ESR, CBC #### [facility] [address] [place] [address] [place] Dipstick and Microscopicon 0 09-07-2022 Appearance (U) Cloudy Critically abnormal Clear [facility] Comment on above: Order Comment: Name Collection Type:: Cl marcie-Voided Midstream Performed By: #### S PE, UPE RAND, VITO SERUM, VITO,URINE #### [facility] , #### CUU, ADDONUAPLUS #### [facility] [address] [place] [address] [place] Bacteria,Urine 4+ High None Seen [facility] Comment on above: Order Comment: Name Collection Type:: Cl marcie-Voided Midstream Performed By: #### S PE, UPE RAND, VITO SERUM, VITO,URINE #### [facility] , #### CUU, ADDONUAPLUS #### [facility] [address] [place] [address] [place] Bilirubin,Urine Negative Normal Negative [facility] Comment on above: Order Comment: Name Collection Type:: Cl marcie-Voided Midstream Performed By: #### S PE, UPE RAND, VITO SERUM, VITO,URINE #### [facility] , #### CUU, ADDONUAPLUS #### [facility] [address] [place] [address] [place] Color (U) Yellow Normal Yellow [facility] Comment on above: Order Comment: Name Collection Type:: Cl marcie-Voided Midstream Performed By: #### S PE, UPE RAND, VITO SERUM, VITO,URINE #### [facility] , #### CUU, ADDONUAPLUS #### [facility] [address] [place] [address] Glucose Ql (U) Normal Normal Normal [facility] Comment on above: Order Comment: Name Collection Type:: Cl marcie-Voided Midstream Performed By: #### S PE, UPE RAND, VITO SERUM, VITO,URINE #### [facility] , #### CUU, ADDONUAPLUS #### [facility] [address] [place] [address] Hyaline Casts,Urine 0-8 Normal 0-8 [facility] Comment on above: Order Comment: Name Collection Type:: Cl marcie-Voided Midstream Result Comment: PERF ORMED BY: [place] [address] PATHOLOGIST [employer] JORGE LUIS RUELAS M.D. Performed By: #### S PE, UPE RAND, VITO SERUM, VITO,URINE #### [facility] , #### CUU, ADDONUAPLUS #### [facility] [address] [place] [address] Ketones Ql (U) Trace High Negative [facility] Comment on above: Order Comment: Name Collection Type:: Cl marcie-Voided Midstream Performed By: #### S PE, UPE RAND, VITO SERUM, VITO,URINE #### [facility] , #### CUU, ADDONUAPLUS #### [facility] [address] [place] [address] Leukocyte esterase Test strip Ql (U) 1+ High Negative [facility] Comment on above: Order Comment: Name Collection Type:: Cl marcie-Voided Midstream Performed By: #### S PE, UPE RAND, VITO SERUM, VITO,URINE #### [facility] , #### CUU, ADDONUAPLUS #### [facility] [address] [place] [address] [place] Nitrite,Urine Positive High Negative [facility] Comment on above: Order Comment: Name Collection Type:: Cl marcie-Voided Midstream Performed By: #### S PE, UPE RAND, VITO SERUM, VITO,URINE #### [facility] , #### CUU, ADDONUAPLUS #### [facility] [address] [place] [address] Occult Blood,Urine Negative Normal Negative [facility] Comment on above: Order Comment: Name Collection Type:: Cl marcie-Voided Midstream Performed By: #### S PE, UPE RAND, VITO SERUM, VITO,URINE #### [facility] , #### CUU, ADDONUAPLUS #### [facility] [address] [place] [address] pH (U) 5.5 [pH] Normal 5.0-9.0 [facility] Comment on above: Order Comment: Name Collection Type:: Cl marcie-Voided Midstream Performed By: #### S PE, UPE RAND, VITO SERUM, VITO,URINE #### [facility] , #### CUU, ADDONUAPLUS #### [facility] [address] [place] [address] Protein,Urine Negative Normal Negative [facility] Comment on above: Order Comment: Name Collection Type:: Cl marcie-Voided Midstream Performed By: #### S PE, UPE RAND, VITO SERUM, VITO,URINE #### [facility] , #### CUU, ADDONUAPLUS #### [facility] [address] [place] [address] [place] RBC,Urine 3-4 Normal 0-4 [facility] Comment on above: Order Comment: Name Collection Type:: Cl marcie-Voided Midstream Performed By: #### S PE, UPE RAND, VITO SERUM, VITO,URINE #### [facility] , #### CUU, ADDONUAPLUS #### [address] Specificy [place],Urine 1.027 Normal 1.001-1.03 0 [facility] Comment on above: Order Comment: Name Collection Type:: Cl marcie-Voided Midstream Performed By: #### S PE, UPE RAND, VITO SERUM, IVTO,URINE #### [facility] , #### CUU, ADDONUAPLUS #### [address] Squamous Epithelial Cell,Urine 5-9 High 0-2 [facility] Comment on above: Order Comment: Name Collection Type:: Cl marcie-Voided Midstream Performed By: #### S PE, UPE RAND, VITO SERUM, VITO,URINE #### [facility] , #### CUU, ADDONUAPLUS #### [address] Urobilinogen,Uri ne Normal Normal Normal [facility] Comment on above: Order Comment: Name Collection Type:: Cl marcie-Voided Midstream Performed By: #### S PE, UPE RAND, VITO SERUM, VITO,URINE #### [facility] , #### CUU, ADDONUAPLUS #### [address] WBC,Urine 5-9 High 0-4 [facility] Comment on above: Order Comment: Name Collection Type:: Cl marcie-Voided Midstream Performed By: #### S PE, UPE RAND, VITO SERUM, VITO,URINE #### [facility] , #### CUU, ADDONUAPLUS #### [address] Erythrocyte Sedimentation Ra trent 09-07-2022 ESR (Bld) [Velocity] 63 mm/h High 0-29 [facility] Comment on above: Result Comment: PERFORMED BY: [place] [address] PATHOLOGIST [employer] JORGE LUIS RUELAS M.D. Performed By: #### T 4F, TSH3, CRP, CMP, ESR, CBC #### [address] Free T4 (Free Thyroxine)on 0 09-07-2022 Free T4 [Mass/Vol] 0.96 ng/dL Normal 0.61-1.12 [facility] Comment on above: Performed By: #### T4F, TSH3, CRP, CMP, ESR, CBC #### [address] Immunofixation, (VITO), Urine on 09-07-2022 Immunofixation, (VITO), Urine Normal . [facility] Comment on above: Result Comment: No monoclonality detecte d. Performed at: - [facility] [place] [id number] Meat Molder: Naldo Valdez PhD, Phone: [phone] Performed By: #### T 4F, TSH3, CRP, CMP, ESR, CBC #### [place] [address] [place] Immunofixation,Serumon 09-07 Immunofixation, Serum Normal . [facility] Comment on above: Result Comment: No monoclonality detecte d. Performed By: #### S PE, UPE RAND, VITO SERUM, VITO,URINE #### [facility] , #### CUU, ADDONUAPLUS #### [address] Immunoglobulin A, Serum 107 mg/dL Normal 64-422 [facility] Comment on above: Performed By: #### SPE, UPE RAND, VITO SE RUM, VITO,URINE #### [facility] , #### CUU, ADDONUAPLUS #### [address] [place] [address] [place] Immunoglobulin G 972 mg/dL Normal 586-1602 [facility] Comment on above: Performed By: #### SPE, UPE RAND, VITO SE RUM, VITO,URINE #### [facility] , #### CUU, ADDONUAPLUS #### [facility] [address] [place] [address] [place] Immunoglobulin M, Serum 348 mg/dL High 26-217 [facility] Comment on above: Result Comment: Performed at: [address] [id number] Meat Molder: Naldo Valdez PhD, Phone: [phone] Performed By: #### S PE, UPE RAND, VITO SERUM, VITO,URINE #### [facility] , #### CUU, ADDONUAPLUS #### [place] [address] [place] Protein Electro, Random Urin chester 09-07-2022 Albumin, Urine 15.7 % Normal . [facility] Comment on above: Performed By: #### T4F, TSH3, CRP, CMP, ESR, CBC #### [place] [address] [place] Jlsjb-5-Roapdjrt , Urine 1.3 % Normal . [facility] Comment on above: Performed By: #### T4F, TSH3, CRP, CMP, ESR, CBC #### [place] [address] [place] Yxaaz-6-Qudtnibj , Urine 17.8 % Normal . [facility] Comment on above: Performed By: #### T4F, TSH3, CRP, CMP, ESR, CBC #### [facility] [address] [place] [address] [place] Beta Globulin, Urine 36.1 % Normal . [facility] Comment on above: Performed By: #### T4F, TSH3, CRP, CMP, ESR, CBC #### [facility] [address] [place] [address] [place] Gamma Globulin, Urine 29.0 % Normal . [facility] Comment on above: Performed By: #### T4F, TSH3, CRP, CMP, ESR, CBC #### [address] M-Virgil % Not Observed Normal Not Observed [facility] Comment on above: Performed By: #### T4F, TSH3, CRP, CMP, ESR, CBC #### [address] Please Note: Normal . [facility] Comment on above: Result Comment: Protein electrophoresis scan will follow via computer, mail, or paint dipper delivery. PERFORMED BY: [place] [address] PATHOLOGIST [employer]IST JORGE LUIS RUELAS M.D. Performed By: #### T 4F, TSH3, CRP, CMP, ESR, CBC #### [address] Protein (U) [Mass/Vol] 27.7 mg/dL Normal Not Estab. [facility] Comment on above: Performed By: #### T4F, TSH3, CRP, CMP, ESR, CBC #### [address] Protein Electrophoresis, Ser umon 09-07-2022 Albumin [Mass/Vol] 3.3 g/dL Normal 2.9-4.4 [facility] Comment on above: Performed By: #### SPE, UPE RAND, VITO SE RUM, VITO,URINE #### [facility] , #### CUU, ADDONUAPLUS #### [address] Albumin/Globulin [Mass ratio] 1.1 {ratio} Normal 0.7-1.7 [facility] Comment on above: Performed By: #### SPE, UPE RAND, VITO SE RUM, VITO,URINE #### [facility] , #### CUU, ADDONUAPLUS #### [address] Wjasq-7-Xfehdagq 0.3 g/dL Normal 0.0-0.4 [facility] Comment on above: Performed By: #### SPE, UPE RAND, VITO SE RUM, VITO,URINE #### [facility] , #### CUU, ADDONUAPLUS #### [facility] [address] [place] [address] [place] Bdhze-9-Quqkycfn 0.9 g/dL Normal 0.4-1.0 [facility] Comment on above: Performed By: #### SPE, UPE RAND, VITO SE RUM, VITO,URINE #### [facility] , #### CUU, ADDONUAPLUS #### [facility] [address] [place] [address] Beta Globulin 0.9 g/dL Normal 0.7-1.3 [facility] Comment on above: Performed By: #### SPE, UPE RAND, VITO SE RUM, VITO,URINE #### [facility] , #### CUU, ADDONUAPLUS #### [facility] [address] [place] [address] [place] Gamma Globulin 1.1 g/dL Normal 0.4-1.8 [facility] Comment on above: Performed By: #### SPE, UPE RAND, VITO SE RUM, VITO,URINE #### [facility] , #### CUU, ADDONUAPLUS #### [facility] [address] [place] [address] [place] Globulin (S) [Mass/Vol] 3.1 g/dL Normal 2.2-3.9 [facility] Comment on above: Performed By: #### SPE, UPE RAND, VITO SE RUM, VITO,URINE #### [facility] , #### CUU, ADDONUAPLUS #### [facility] [address] [place] [address] [place] M-Virgil Not Observed Normal Not Observed [facility] Comment on above: Performed By: #### SPE, UPE RAND, VITO SE RUM, VITO,URINE #### [facility] , #### CUU, ADDONUAPLUS #### [address] Protein [Mass/Vol] 6.4 g/dL Normal 6.0-8.5 [facility] Comment on above: Performed By: #### SPE, UPE RAND, VITO SE RUM, VITO,URINE #### [facility] , #### CUU, ADDONUAPLUS #### [facility] [address] [place] [address] SPE-Note Normal . [facility] Comment on above: Result Comment: Protein electrophoresis scan will follow via computer, mail, or paint dipper delivery. Performed at: [address] [id number] Meat Molder: Naldo Valdez PhD, Phone: [phone] PERFORMED BY: [place] [address] PATHOLOGIST [employer]IST JORGE LUIS RUELAS M.D. Performed By: #### S PE, UPE RAND, VITO SERUM, VITO,URINE #### [facility] , #### CUU, ADDONUAPLUS #### [address] Thyroid Stimulating Hormoneo n 09-07-2022 TSH Qn 1.60 m[IU]/L Normal 0.45-5.33 [facility] Comment on above: Result Comment: PERFORMED BY: [place] [address] PATHOLOGIST [employer]IST JORGE LUIS RUELAS M.D. Performed By: #### T 4F, TSH3, CRP, CMP, ESR, CBC #### [address] Urine Cultureon 09-07-2022 Bacteria identified Cx Nom (U) ORGANISM: Escherichia coli (O:ESCCOL) Mccaulley Count >100,000 Aerobic DELFIN Charge (NMIC56) SUSCEPTIBILITY [...] RESISTANT TO ALL B-LACTAM DRUGS. PERFORMED BY: [place] [address] PATHOLOGIST [employer] HE[employer] SPECIALIST JORGE LUIS RUELAS M.D. Normal [facility] Comment on above: Performed By: #### SPE, UPE RAND, VITO SE RUM, VITO,URINE #### [facility] , #### CUU, ADDONUAPLUS #### [address] CULTURE URINEon 05-28-2022 CULTURE URINE Isolate [...] F Trimethoprim/Sulfamethoxazole <=20 S F Normal [facility] Comment on above: Performed By: #### UACSIND #### [facility] [address] [place] [address] Dr. Megan Caballero ALDOLASEon 05-27-2022 Aldolase 5.8 U/L Normal 3.3-10.3 [facility] Comment on above: Performed By: #### LACT #### [facility] [address] [place] [address] Dr. Megan Caballero TAO DIRECTon 05-27-2022 TAO Direct Negative Normal Negative [facility] Comment on above: Performed By: #### LACT #### [facility] [address] [place] [address] Dr. Megan Caballero RHEUMATOID FACTORon 05-28-19 23 RA Latex Turbid. 28.2 IU/mL Critically high <14.0 [facility] Comment on above: Performed By: #### LACT #### [facility] [address] [place] [address] Dr. Megan Caballero CBC AUTO DIFFon 05-26-2022 BASO # 0.0 103/ul Normal 0.0-0.1 [facility] Comment on above: Performed By: #### LACT #### [facility] [address] [place] [address] Dr. Megan Caballero Basophils/100 WBC (Bld) 0.1 % Critically low 0.2-2.0 [facility] Comment on above: Performed By: #### LACT #### [facility] [address] [place] [address] Dr. Megan Caballero EO # 0.0 103/ul Normal 0.0-0.7 [facility] Comment on above: Performed By: #### LACT #### [facility] [address] [place] [address] Dr. Megan Caballero Eosinophils/100 WBC (Bld) 0.0 % Critically low 0.9-7.0 [facility] Comment on above: Performed By: #### LACT #### [facility] [address] [place] [address] Dr. Megan Caballero Erythrocyte distribution width (RBC) [Ratio] 13.4 % Normal 11.0-15.0 [facility] Comment on above: Performed By: #### LACT #### [facility] [address] [place] [address] Dr. Megan Caballero Hematocrit (Bld) [Volume fraction] 33.4 % Critically low 36.0-48.0 [facility] Comment on above: Performed By: #### LACT #### [facility] [address] [place] [address] Dr. Megan Caballero Hemoglobin (Bld) [Mass/Vol] 11.0 g/dL Critically low 12.0-16.0 [facility] Comment on above: Performed By: #### LACT #### [facility] [address] [place] [address] Dr. Megan Caballero IG # 0.12 10e3/ul Critically high 0.00-0.03 [facility] Comment on above: Performed By: #### LACT #### [facility] [address] [place] [address] Dr. Megan Caballero IG % 0.9 % Critically high 0.0-0.5 [facility] Comment on above: Performed By: #### LACT #### [facility] [address] [place] [address] Dr. Megan Caballero LYMPH # 0.8 103/ul Critically low 1.2-3.8 [facility] Comment on above: Performed By: #### LACT #### [facility] [address] [place] [address] Dr. Megan Caballero Lymphocytes/100 WBC (Bld) 5.7 % Critically low 20.5-60.0 [facility] Comment on above: Performed By: #### LACT #### [facility] [address] [place] [address] Dr. Megan Caballero MANUAL DIFF REQ NO Normal [facility] Comment on above: Performed By: #### LACT #### [facility] [address] [place] [address] Dr. Megan Caballero MCH (RBC) [Entitic mass] 29.2 pg Normal 26.7-34.0 [facility] Comment on above: Performed By: #### LACT #### [facility] [address] [place] [address] Dr. Megan Caballero MCHC (RBC) [Mass/Vol] 32.9 g/dL Normal 29.9-35.2 [facility] Comment on above: Performed By: #### LACT #### [facility] [address] [place] [address] Dr. Megan Caballero MCV (RBC) [Entitic vol] 88.6 fL Normal 81.0-99.0 [facility] Comment on above: Performed By: #### LACT #### [facility] [address] [place] [address] Dr. Megan Caballero MONO # 1.1 103/ul Critically high 0.3-0.8 [facility] Comment on above: Performed By: #### LACT #### [facility] [address] [place] [address] Dr. Megan Caballero Monocytes/100 WBC (Bld) 7.9 % Normal 1.7-12.0 [facility] Comment on above: Performed By: #### LACT #### [facility] [address] [place] [address] Dr. Megan Caballero NEUT # 11.9 103/ul Critically high 1.4-6.5 [facility] Comment on above: Performed By: #### LACT #### [facility] [address] [place] [address] Dr. Megan Caballero Neutrophils/100 WBC (Bld) 85.4 % Critically high 43.0-75.0 [facility] Comment on above: Performed By: #### LACT #### [facility] [address] [place] [address] Dr. Megan Caballero Platelet mean volume (Bld) [Entitic vol] 10.2 fL Normal 9.5-13.5 [facility] Comment on above: Performed By: #### LACT #### [facility] [address] [place] [address] Dr. Megan Caballero PLT 176 103/ul Normal 150-450 [facility] Comment on above: Performed By: #### LACT #### [facility] [address] [place] [address] Dr. Megan Caballero RBC 3.77 106/ul Critically low 4.20-5.40 [facility] Comment on above: Performed By: #### LACT #### [facility] [address] [place] [address] Dr. Megan Caballero WBC 13.9 103/ul Critically high 4.0-11.0 [facility] Comment on above: Performed By: #### LACT #### [facility] [address] [place] [address] Dr. Megan Caballero CULTURE BLOODon 05-26-2022 Microscopic examination of blood, culture Culture Observations: NO GROWTH AT 5 DAYS. Normal [facility] Comment on above: Performed By: #### UACSIND #### [facility] [address] [place] [address] Dr. Megan Caballero Microscopic examination of blood, culture Culture Observations: NO GROWTH AT 5 DAYS. Normal [facility] Comment on above: Performed By: #### UACSIND #### [facility] [address] [place] [address] Dr. Megan Caballero LACTATE/LACTIC ACIDon 2022 Lactate [Moles/Vol] 1.1 mmol/L Normal 0.4-1.9 [facility] Comment on above: Performed By: #### LACT #### [facility] [address] [place] [address] Dr. Megan Caballero LIVER PROFILEon 05-26-2022 Albumin [Mass/Vol] 2.7 g/dL Critically low 3.4-5.0 [facility] Comment on above: Performed By: #### LACT #### [facility] [address] [place] [address] Dr. Megan Caballero Albumin/Globulin [Mass ratio] 0.6 {ratio} Normal [facility] Comment on above: Performed By: #### LACT #### [facility] [address] [place] [address] Dr. Megan Caballero ALP [Catalytic activity/Vol] 107 U/L Normal 46-116 [facility] Comment on above: Performed By: #### LACT #### [facility] [address] [place] [address] Dr. Megan Caballero ALT [Catalytic activity/Vol] 12 U/L Critically low 14-59 [facility] Comment on above: Performed By: #### LACT #### [facility] [address] [place] [address] Dr. Megan Caballero AST [Catalytic activity/Vol] 16 U/L Normal 15-37 [facility] Comment on above: Performed By: #### LACT #### [facility] [address] [place], [place] [address] [place]. Megan Caballero BILI, CONJUGATED 0.1 mg/dL Normal 0.0-0.2 [facility] Comment on above: Performed By: #### LACT #### [facility] [address] [place] [address] Dr. Megan Caballero Bilirubin [Mass/Vol] 0.6 mg/dL Normal 0.2-1.0 [facility] Comment on above: Performed By: #### LACT #### [facility] [address] [place] [address] Dr. Megan Caballero Globulin (S) [Mass/Vol] 4.2 g/dL Normal [facility] Comment on above: Performed By: #### LACT #### [facility] [address] [place] [address] Dr. Megan Caballero Protein [Mass/Vol] 6.9 g/dL Normal 6.4-8.2 [facility] Comment on above: Performed By: #### LACT #### [facility] [address] [place] [address] Dr. Megan Caballero MAGNESIUMon 05-26-2022 Magnesium [Mass/Vol] 1.9 mg/dL Normal 1.8-2.4 [facility] Comment on above: Performed By: #### MG #### [facility] [address] [address] [address] Megan Caballero NM BONE SC WH [...] IHSAN PEDROZA Date: 2022-05-26 15:25 Normal [facility] PROF 14(COMP METB)on 023 Albumin [Mass/Vol] 2.4 g/dL Critically low 3.4-5.0 [facility] Comment on above: Performed By: #### LACT #### [facility] [address] [place] [address] Dr. Megan Caballero Albumin/Globulin [Mass ratio] 0.6 {ratio} Normal [facility] Comment on above: Performed By: #### LACT #### [facility] [address] [address] [address] Megan Caballero ALP [Catalytic activity/Vol] 92 U/L Normal 46-116 [facility] Comment on above: Performed By: #### LACT #### [facility] [address] [address] [address] Megan Caballero ALT [Catalytic activity/Vol] 10 U/L Critically low 14-59 [facility] Comment on above: Performed By: #### LACT #### [facility] [address] [address] [address] Megan Caballero Anion gap [Moles/Vol] 10.3 mmol/L Normal [facility] Comment on above: Performed By: #### LACT #### [facility] [address] [address] [address] Megan Caballero AST [Catalytic activity/Vol] 14 U/L Critically low 15-37 [facility] Comment on above: Performed By: #### LACT #### [facility] [address] [address] [address] Megan Caballero Bilirubin [Mass/Vol] 0.5 mg/dL Normal 0.2-1.0 [facility] Comment on above: Performed By: #### LACT #### [facility] [address] [address] [address] Megan Caballero Calcium [Mass/Vol] 8.2 mg/dL Critically low 8.5-10.1 [facility] Comment on above: Performed By: #### LACT #### [facility] [address] [address] [address] Megan Caballero Chloride [Moles/Vol] 104 mmol/L Normal 98-107 [facility] Comment on above: Performed By: #### LACT #### [facility] [address] [address] [address] Megan Caballero CO2 [Moles/Vol] 28.2 mmol/L Normal 21.0-32.0 [facility] Comment on above: Performed By: #### LACT #### [facility] [address] [address] [address] Megan Caballero Creatinine [Mass/Vol] 1.05 mg/dL Critically high 0.55-1.02 [facility] Comment on above: Performed By: #### LACT #### [facility] [address] [address] [address] Megan Caballero EGFR-AF ALBANIAN >60 Normal >=60 [facility] Comment on above: Performed By: #### LACT #### [facility] [address] [address] [address] Megan Caballero EGFR-NON AF ALBANIAN 50 mL/min/1.73m2 Critically low >=60 [facility] Comment on above: Performed By: #### LACT #### [facility] [address] [address] [address] Megan Caballero Globulin (S) [Mass/Vol] 3.7 g/dL Normal [facility] Comment on above: Performed By: #### LACT #### [facility] [address] [address] [address] Megan Caballero Glucose [Mass/Vol] 116 mg/dL Critically high 74-106 [facility] Comment on above: Performed By: #### LACT #### [facility] [address] [address] [address] Megan Caballero Potassium [Moles/Vol] 3.5 mmol/L Normal 3.5-5.1 [facility] Comment on above: Performed By: #### LACT #### [facility] [address] [place] [address] Dr. Megan Caballero Protein [Mass/Vol] 6.1 g/dL Critically low 6.4-8.2 [facility] Comment on above: Performed By: #### LACT #### [facility] [address] [place] [address] Dr. Megan Caballero Sodium [Moles/Vol] 139 mmol/L Normal 136-145 [facility] Comment on above: Performed By: #### LACT #### [facility] [address] [place] [address] Dr. Megan Caballero Urea nitrogen [Mass/Vol] 25.0 mg/dL Critically high 7.0-18.0 [facility] Comment on above: Performed By: #### LACT #### [facility] [address] [place] [address] Dr. Megan Caballero Urea nitrogen/Creatin ine [Mass ratio] 23.8 mg/mg Normal [facility] Comment on above: Performed By: #### LACT #### [facility] [address] [place] [address] Dr. Megan Caballero PTTon 05-26-2022 aPTT Coag (Bld) [Time] 31.1 s Normal 22.3-36.2 [facility] Comment on above: Performed By: #### PTT #### [facility] [address] [place] [address] Dr. Megan Caballero UA RANDOMon 05-26-2022 Bilirubin Ql (U) Negative Normal NEGATIVE [facility] Comment on above: Performed By: #### UA #### [facility] [address] [place] [address] Dr. Megan Caballero Clarity (U) CLEAR Normal CLEAR [facility] Comment on above: Performed By: #### UA #### [facility] [address] [place] [address] Dr. Megan Caballero Color (U) LT. YELLOW Normal YELLOW [facility] Comment on above: Performed By: #### UA #### [facility] [address] [place] [address] Dr. Megan Caballero Glucose Ql (U) Negative Normal NEGATIVE [facility] Comment on above: Performed By: #### UA #### [facility] [address] [place] [address] Dr. Megan Caballero Hemoglobin Ql (U) MODERATE Abnormal NEGATIVE [facility] Comment on above: Performed By: #### UA #### [facility] [address] [place] [address] Dr. Megan Caballero Ketones Ql (U) Negative Normal NEGATIVE [facility] Comment on above: Performed By: #### UA #### [facility] [address] [place] [address] Dr. Megan Caballero LEUKOCYTES TRACE Abnormal NEGATIVE [facility] Comment on above: Performed By: #### UA #### [facility] [address] [place] [address] Dr. Megan Caballero Nitrite Ql (U) Negative Normal NEGATIVE [facility] Comment on above: Performed By: #### UA #### [facility] [address] [place] [address] Dr. Megan Caballero pH (U) 6.0 [pH] Normal 5-9 [facility] Comment on above: Performed By: #### UA #### [facility] [address] [place] [address] Dr. Megan Caballero SPEC GRAVITY 1.015 Normal 1.005-<=1. 025 [facility] Comment on above: Performed By: #### UA #### [facility] [address] [place] [address] Dr. Megan Caballero UA PROTEIN 30 mg/dl Abnormal NEGATIVE/ TRACE [facility] Comment on above: Performed By: #### UA #### [facility] [address] [place] [address] Dr. Megan Caballero Urobilinogen Qn (U) 0.2 {Renu'U}/dL Normal 0.2 - 1.0 [facility] Comment on above: Performed By: #### UA #### [facility] [address] [place] [address] Dr. Megan Caballero XR CHEST 1 Von [...] ALVINO BENITEZ Date: 2022-05-26 04:41 Normal [facility] CPKon 05-25-2022 CK [Catalytic activity/Vol] 73 U/L Normal 26-192 [facility] Comment on above: Performed By: #### UACSIND #### [facility] [address] [place] [address] Dr. Megan Caballero CRPon 05-25-2022 CRP 11.9 mg/dL Critically high <=1.0 [facility] Comment on above: Performed By: #### CRP, URIC #### [facility] [address] [place] [address] Dr. Megan Caballero [facility]on SARS-CoV-2 (COVID-19) RNA YU+probe Ql (Unsp spec) Not detected Normal NOT DETECTED [facility] Comment on above: Result Comment: When diagnostic [...] for this test is supported by the [place] of [employer] and Human Service's declaration that [...] used). Performed By: #### U ACSIND #### [facility] [address] [place] [address] Dr. Megan Caballero SED RATE STERLINGERGRENon 2022 SED RATE 55 mm/hr Critically high <=30 [facility] Comment on above: Performed By: #### SEDR #### [facility] [address] [place] [address] Dr. Megan Caballero TSHon 05-25-2022 TSH 0.533 uIU/mL Normal 0.358-3.74 0 [facility] Comment on above: Performed By: #### TSH #### [facility] [address] [place] [address] Dr. Megan Caballero UA (CLEAN/CATCH) RESPIRATORY TECHNICIAN/MICRO I F IND.on 05-25-2022 Bilirubin Ql (U) Negative Normal NEGATIVE [facility] Comment on above: Performed By: #### UACSIND #### [facility] [address] [place] [address] Dr. Megan Caballero Clarity (U) CLEAR Normal CLEAR [facility] Comment on above: Performed By: #### UACSIND #### [facility] [address] [place] [address] Dr. Megan Caballero Color (U) LT. YELLOW Normal YELLOW [facility] Comment on above: Performed By: #### UACSIND #### [facility] [address] [place] [address] Dr. Megan Caballero Glucose Ql (U) Negative Normal NEGATIVE [facility] Comment on above: Performed By: #### UACSIND #### [facility] [address] [place] [address] Dr. Megan Caballero Hemoglobin Ql (U) TRACE-LYSED Abnormal NEGATIVE [facility] Comment on above: Performed By: #### UACSIND #### [facility] [address] [place] [address] Dr. Megan Caballero Ketones Ql (U) Negative Normal NEGATIVE [facility] Comment on above: Performed By: #### UACSIND #### [facility] [address] [place] [address] Dr. Megan Caballero LEUKOCYTES Negative Normal NEGATIVE [facility] Comment on above: Performed By: #### UACSIND #### [facility] [address] [place] [address] Dr. Megan Caballero Nitrite Ql (U) Negative Normal NEGATIVE [facility] Comment on above: Performed By: #### UACSIND #### [facility] [address] [place] [address] Dr. Megan Caballero pH (U) 6.5 [pH] Normal 5-9 [facility] Comment on above: Performed By: #### UACSIND #### [facility] [address] [place] [address] Dr. Megan Caballero SPEC GRAVITY 1.020 Normal 1.005-<=1. 025 [facility] Comment on above: Performed By: #### UACSIND #### [facility] [address] [place] [address] Dr. Megan Caballero UA PROTEIN Negative Normal NEGATIVE/ TRACE [facility] Comment on above: Performed By: #### UACSIND #### [facility] [address] [place] [address] Dr. Megan Caballero UR MICRO IND NOT INDICATED Normal [facility] Comment on above: Performed By: #### UACSIND #### [facility] [address] [place] [address] Dr. Megan Caballero Urobilinogen Qn (U) 0.2 {Renu'U}/dL Normal 0.2 - 1.0 [facility] Comment on above: Performed By: #### UACSIND #### [facility] [address] [place] [address] Dr. Megan Caballero URIC ACID SERUMon 05-25-2022 Urate [Mass/Vol] 4.3 mg/dL Normal 2.6-6.0 [facility] Comment on above: Performed By: #### CRP, URIC #### [facility] [address] [place] [address] Dr. Megan Caballero XR FEMUR RTon 05-25-2022 [...] JELANI MAR Date: 2022-05-24 23:28 Normal [facility] CBC W MANUAL DIFFon 05-25-19 23 ATYPICAL LYMPH # Normal [facility] Comment on above: Performed By: #### LACT #### [facility] [address] [place] [address] Dr. Megan Caballero ATYPICAL LYMPH % Normal [facility] Comment on above: Performed By: #### LACT #### [facility] [address] [place] [address] Dr. Megan Caballero BAND # 0.0 103/ul Normal 0.0-0.3 [facility] Comment on above: Performed By: #### LACT #### [facility] [address] [place] [address] Dr. Megan Caballero BAND % 0 % Normal 0-5 [facility] Comment on above: Performed By: #### LACT #### [facility] [address] [place] [address] Dr. Megan Caballero BASOM # 0.00 103/ul Normal 0.00-0.10 [facility] Comment on above: Performed By: #### LACT #### [facility] [address] [place] [address] Dr. Megan Caballero BASOM % 0.0 % Critically low 0.2-2.0 [facility] Comment on above: Performed By: #### LACT #### [facility] [address] [place] [address] Dr. Megan Caballero BLAST # Normal [facility] Comment on above: Performed By: #### LACT #### [facility] [address] [place] [address] Dr. Megan Caballero BLAST % Normal [facility] Comment on above: Performed By: #### LACT #### [facility] [address] [place] [address] Dr. Megan Caballero CORRECTED WBC Normal 4.0-11.0 [facility] Comment on above: Performed By: #### LACT #### [facility] [address] [place] [address] Dr. Megan Caballero EOS # 0.00 103/ul Normal 0.00-0.70 [facility] Comment on above: Performed By: #### LACT #### [facility] [address] [place] [address] Dr. Megan Caballero EOS% 0.0 % Critically low 0.9-7.0 [facility] Comment on above: Performed By: #### LACT #### [facility] [address] [place] [address] Dr. Megan Caballero HCT 37.2 % Normal 36.0-48.0 [facility] Comment on above: Performed By: #### LACT #### [facility] [address] [place] [address] Dr. Megan Caballero HGB 12.2 g/dl Normal 12.0-16.0 [facility] Comment on above: Performed By: #### LACT #### [facility] [address] [place] [address] Dr. Megan Caballero LYMPHM # 0.23 103/ul Critically low 1.20-3.80 [facility] Comment on above: Performed By: #### LACT #### [facility] [address] [place] [address] Dr. Megan Caballero LYMPHM% 2.0 % Critically low 20.5-60.0 [facility] Comment on above: Performed By: #### LACT #### [facility] [address] [place] [address] Dr. Megan Caballero MCH 28.6 pg Normal 26.7-34.0 [facility] Comment on above: Performed By: #### LACT #### [facility] [address] [place] [address] Dr. Megan Caballero MCHC 32.8 g/dl Normal 29.9-35.2 [facility] Comment on above: Performed By: #### LACT #### [facility] [address] [place] [address] Dr. Megan Caballero MCV 87.1 fL Normal 81.0-99.0 [facility] Comment on above: Performed By: #### LACT #### [facility] [address] [place] [address] Dr. Megan Caballero METAMYELOCYTE # Normal [facility] Comment on above: Performed By: #### LACT #### [facility] [address] [place] [address] Dr. Megan Caballero METAMYELOCYTE % Normal [facility] Comment on above: Performed By: #### LACT #### [facility] [address] [place] [address] Dr. Megan Caballero MONOM# 0.23 103/ul Critically low 0.30-0.80 [facility] Comment on above: Performed By: #### LACT #### [facility] [address] [place] [address] Dr. Megan Caballero MONOM% 2.0 % Normal 1.7-12.0 [facility] Comment on above: Performed By: #### LACT #### [facility] [address] [place] [address] Dr. Megan Caballero MPV 9.5 fL Normal 9.5-13.5 [facility] Comment on above: Performed By: #### LACT #### [facility] [address] [address] [address] Megan Caballero MYELOCYTE # Normal [facility] Comment on above: Performed By: #### LACT #### [facility] [address] [address] [address] Megan Caballero MYELOCYTE % Normal [facility] Comment on above: Performed By: #### LACT #### [facility] [address] [address] [address] Megan Caballero NRBC Normal [facility] Comment on above: Performed By: #### LACT #### [facility] [address] [place] [address] Dr. Megan Caballero PLT 197 103/ul Normal 150-450 [facility] Comment on above: Performed By: #### LACT #### [facility] [address] [place] [address] Dr. Megan Caballero RBC 4.27 106/ul Normal 4.20-5.40 [facility] Comment on above: Performed By: #### LACT #### [facility] [address] [place] [address] Dr. Megan Caballero RDW 13.1 % Normal 11.0-15.0 [facility] Comment on above: Performed By: #### LACT #### [facility] [address] [place] [address] Dr. Megan Caballero SEG # 10.85 103/ul Critically high 1.40-6.50 [facility] Comment on above: Performed By: #### LACT #### [facility] [address] [address] [address] Megan Caballero SEG % 96.0 % Critically high 43.0-75.0 [facility] Comment on above: Performed By: #### LACT #### [facility] [address] [address] [address] Megan Caballero WBC 11.3 103/ul Critically high 4.0-11.0 [facility] Comment on above: Performed By: #### LACT #### [facility] [address] [address] [address] Megan Caballero CRPon 05-24-2022 CRP 1.7 mg/dL Critically high <=1.0 [facility] Comment on above: Performed By: #### LACT #### [facility] [address] [place], [place] [address] PELVIS WO CONon [...] of iterative reconstruction technique. FINDINGS: The initial sterilizer machine operator views demonstrate bilateral total hip prostheses. The [...] JELANI MAR Date: 2022-05-24 21:51 Normal [facility] PROF CHEM 8 (BAS METB)on Anion gap [Moles/Vol] 12.6 mmol/L Normal [facility] Comment on above: Performed By: #### LACT #### [facility] [address] [place], [place] [address] Dr. Megan Caballero Calcium [Mass/Vol] 8.6 mg/dL Normal 8.5-10.1 [facility] Comment on above: Performed By: #### LACT #### [facility] [address] [address] [address] Megan Caballero Chloride [Moles/Vol] 102 mmol/L Normal 98-107 [facility] Comment on above: Performed By: #### LACT #### [facility] [address] [address] [address] Megan Caballero CO2 [Moles/Vol] 28.6 mmol/L Normal 21.0-32.0 [facility] Comment on above: Performed By: #### LACT #### [facility] [address] [address] [address] Megan Caballero Creatinine [Mass/Vol] 0.73 mg/dL Normal 0.55-1.02 [facility] Comment on above: Performed By: #### LACT #### [facility] [address] [place] [address] Dr. Megan Caballero EGFR-AF ALBANIAN >60 Normal >=60 [facility] Comment on above: Performed By: #### LACT #### [facility] [address] [place] [address] Dr. Megan Caballero EGFR-NON AF ALBANIAN >60 Normal >=60 [facility] Comment on above: Performed By: #### LACT #### [facility] [address] [place] [address] Dr. Megan Caballero Glucose [Mass/Vol] 121 mg/dL Critically high 74-106 [facility] Comment on above: Performed By: #### LACT #### [facility] [address] [address] [address] Megan Caballero Potassium [Moles/Vol] 3.2 mmol/L Critically low 3.5-5.1 [facility] Comment on above: Performed By: #### LACT #### [facility] [address] [place] [address] Dr. Megan Caballero Sodium [Moles/Vol] 140 mmol/L Normal 136-145 [facility] Comment on above: Performed By: #### LACT #### [facility] [address] [place] [address] Dr. Megan Caballero Urea nitrogen [Mass/Vol] 15.0 mg/dL Normal 7.0-18.0 [facility] Comment on above: Performed By: #### LACT #### [facility] [address] [address] [address] Megan Caballero Urea nitrogen/Creatin ine [Mass ratio] 20.5 mg/mg Normal [facility] Comment on above: Performed By: #### LACT #### [facility] [address] [address] [address] Megan Caballero SED RATE STERLINGERGRENon 2022 SED RATE 54 mm/hr Critically high <=30 [facility] Comment on above: Performed By: #### SEDR #### [facility] [address] [address] [address] Megan Caballero CNOVon 05-30-2020 CNOV Office Visit (UROLAV ) JOSEANGELIKA ([id number]) 1940 [address] Date Time Provider Department 05/30/20 6:00 PM [facility] UROMICHELLE During your visit today, we recorded the following information about you: Pulse Blood pressure Weight 101/minute 141/67 98.4 kg Negro Pompa MD 05/30/2020 6:55 PM Signed [facility] ESTABL[facility] FOR FEMALE [...] Via bladder scan. Referring Provider: NEGRO POMPA [[id number]] Allergies As of Date: 05/30/2020 Noted Allergy [...] by NEGRO POMPA MD on 05/30/20 Normal [facility] CNCOon 05-28-2020 CNCO Letter Text Normal [facility] ANES POSTPROC EVALon 021 ANES POSTPROC EVAL HNO ID: [id number] Author: Ihsan Gamino Service: Anesthesiology Author Type: Anesthesiologist Type: Anesthesia Postprocedure Evaluation Filed: 05/01/2020 4:49 PM Note Text: POST ANESTHESIA EVALUATION NOTE : 1940 Procedure Summary Date: 05/01/20 Room / Location: [address] / [facility] Anesthesia Start: 1504 Anesthesia Stop: 1620 Procedures: [...] May 01, 2020 TIME: 4:49 PM CSN: [id number] [facility] ANES PRE-OPon 05-01-2020 ANES PRE-OP HNO ID: [id number] Author: Ihsan Gamino Service: Anesthesiology Author Type: [...] May 01, 2020 TIME: 3:53 PM CSN: [id number] [facility] HISTORY PHYSICALon HISTORY PHYSICAL HNO ID: [id number] Author: Negro Pompa Service: Urology Author Type: [...] Pompa MD May 01, 2020 1:22 PM [facility] OPERATIVE NOon 05-01-2020 OPERATIVE NO HNO ID: [id number] Author: Negro Pompa Service: Urology Author Type: Physician Type: Operative Report Filed: 05/01/2020 5:00 PM Note Text: OPERATIVE/PROCEDURE REPORT LOG ID: [id number] SURGERY/PROCEDURE DATE: 05/01/2020 INCISION/PROCEDURE START TIME: 3:28 PM INCISION CLOSE/PROCEDURE END TIME: 4:05 PM SURGEON(S)/PROCEDURALIST(S) AND CRYPTOLOGIC SUPERVISOR(S): Surgeon(s) and Role: * Negro Pompa - [...] 2020 TIME: 4:45 PM PAGER/CONTACT #: Normal [facility] SURGICAL PATHOLOGYon 021 SURGICAL PATHOLOGY Specimen originated from [facility] Specimen #: [id number] Submitting Physician: NEGRO POMPA FINAL DIAGNOSIS Vaginal [...] cassette. DOUG/evens 05/02/2020 Gross examination performed at [facility], [address] [address] [address] Date of Report: 05/06/2020 Date of Procedure: 05/01/2020 Date of Receipt: 05/02/2020 Submitted by: NEGRO POMPA Location: [facility] Diagnostic interpretation performed at [facility], [address] [place] [address]. CLIA Number: [id number] [facility] HOSPon 04-19-2020 HOSP Patient:Nany Muir MRN: [...] notes entered within the past 30 days [facility] Provider Letteron 11-21-2019 Provider Letter (Inserted Image. Patricia ble to display) November 21, 2019 ANGELIKA MUIR [address] [place] [id number] ANGELIKA MUIR 1940 Dear Angelika, You missed [...] do appreciate your understanding. Sincerely, [facility]/Dr Jono Gomes [facility] Ambulatory Clinical Summaryo n 10-27-2019 Ambulatory Clinical Summary {[id number] Normal [facility] Patient Educationon 10-24-19 Patient Education Family Medicine [...] bladder worse. Your healthcare provider or a cloth presser can explain ways to change what you [...] Document Reviewed: 01/02/2010 ExitCare? Patient Information ?2013 [employer]. Mireya [facility] Urology Office/Clinic Noteon 10-24-2019 Urology Office/Clinic Note [...] and pt was advised to use the [facility] RX card. Pt will return in 1 month. Ordered: PVR urine/bladder capacity/[place] [address] Urnls Dip Stick Auto w/o Microscopy POC 90489 2. Other urethral stricture, female (N35.82: Other [...] Daily, # 30 tab(s), Refills(s) 1, [facility], [facility], cm, 10/24/19 14:15:00 EDT, Height/Length Measured, 100, kg, 10/24/19 14:15:00 EDT, Weight Measured I have reviewed the previous health record information and history for this patient from Dr. De La Cruz Follow-up With When Contact Information Jono Faust MD, Bandar Devine In 1 month [facility] [address], [place] [address]- Additional Instructions: w/ PVR Patient Education Overactive [...] Protein Urine Dipstick: Negative (10/24/19 14:03:00) Specific [place] Urine Dipstick: 1.025 (10/24/19 14:03:00) Urine Appearance Urine Dipstick: Clear (10/24/19 14:03:00) Urine Color Urine Dipstick: Yellow (10/24/19 14:03:00) Urobilinogen Urine Dipstick: Normal 0.2-1 EU/dl (10/24/19 14:03:00) pH Urine Dipstick: 5.5 (10/24/19 14:03:00) Diagnostic Results PVR was reviewed at 85 cc. Urinalysis shows no infection. Normal [facility] Comment on above: Result Comment: Electronically Signed By : Jono Faust MD, Bandar Devine\.br\Date and Time Signed: 10/24/19 14:59 EDT\.br\Electronically Co-Signed By: Lida Ybarra MA\.br\Date and Time Co-Signed: 10/24/19 14:56 EDT Ambulatory Clinical Summaryo n 08-24-2019 Ambulatory Clinical Summary {[id number] Normal [facility] Reminderson 04-24-2019 Reminders - From: Kristen Rievro To: EU - Clinical; Sent: 04/04/2019 15:20:13 EST Show up: 04/24/2019 07:00:00 EST Subject: Urodynamics Report Due Date/Time: 04/24/2019 07:00:00 EST Reminder/Recall Show Dr. De La Cruz results, patient may need scheduled for Cysto/TVT sling Test: Urodynamics Test being done 04/20/19 @ [facility] From: Fili Morgan MA ( - Clinical) To: Jono Faust MD, Bandar Devine; Sent: 04/24/2019 08:02:48 EST Show up: 04/24/2019 08:02:00 EST Subject: RE: Urodynamics Report Please review Urodynamics report. Per message, Pt may need scheduled for Cysto/ TVT Normal [facility] Coding Summary.on 04-21-2019 Coding Summary. CODING DATE: 020 FINAL [facility] DSC STATUS: Home (Routine DC) PAYOR: Medicare [...] Garces Date Saved: 04/21/2019 01:56 pm Normal [facility] Patient Summaryon 02-02-2019 Patient Summary PATIENT DISCHARGE IN STRUCTIONS If you are having an emergency and are not able to reach your physician, CALL 911 or go to the nearest emergency room and take this document with you. [facility] 02/02/19 09:32 [address] [place]. [address] PATIENT INFORMATION Name: ANGELIKA MUIR [address]: [address] [place] [id number] Age: 78 Years Phone: [phone] : 1940 12:00 MRN: ([id number] Sex: Female Race: White Ethnicity: Not Hispan/Lat Admitted From: Clinic or [facility] Medical Service: Orthopedic Surgery Nurse Unit/Bed: (NEHA) 2NAKI 0219-01 Admit Date: 01/30/2019 05:59 PCP: Eduardo Rose MD PHYSICIANS INVOLVED WITH CARE Attending Physicians: Rancho SIEGEL , Amrik Sutton - Orthopaedic Surg Admitting Physician: Amrik Vickers MD - Orthopaedic Surg Primary Care Physician:Eduardo Rose MD,Internal Medicine, - Consults: Rosibel SIEGEL , Elbert Kim - [facility] FOLLOW-UP APPOINTMENTS: Provider: Specialty: Address: Date: Amrik Vickers MD Orthopaedic Surg [address] [facility] [address] [facility] [address] (1) Six Weeks Comment: Call for an Appointment Provider: Specialty: Address: Date: Eduardo Rose MD Internal Medicine [address] [place] [address] (1) Follow-up as needed Provider: Specialty: Address: Date: [facility]: [facility] [phone] Follow-up as needed ALLERGIES: No Known Medication [...] doses are changed, or new medications (including mnfp-fgk-jsafvxh products) are added. Ask your doctor if [...] Decisions Type: Living Will, Medical Power of Cutter Operator Asbestos Shingle Copy of Advance Directive/Health Care Decisions on Chart: Patient/Family asked to provide copy SUICIDE HOTLINE: Your mental and emotional well-being are important. If you are in a mental health crisis, or having thoughts of suicide, please call the nationwide suicide hotline, anytime day or night, at 8-572-855-WIIB. Important information about accessing your health information through the [facility] patient portal If you initiated the self-registration process for [facility] during your stay, please check your personal email for an invitation to enroll in [facility] and complete the steps outlined in the email. If you would prefer to enroll while in the hospital, ask a member of your care team. We would be happy to assist you. If you have already enrolled in [facility], go to [email or web address] to login and access your health information. Thank you for choosing [facility]. PATIENT EDUCATION Fall Prevention in the Home [...] wet floors. ???Place frequently used items in yytz-qe-yfijc places. ???If you need to reach for something above you, use a sturdy step stool that has a grab bar. ???Keep electrical cables out of the way. ???Do not use floor luxembourger or wax that makes floors slippery. If [...] include working with a physical therapist or clinical trainer to improve your strength, balance, and endurance. This information is not intended to replace advice given to you by your health care provider. Make sure you discuss any questions you have with your health care provider. Document Released: 02/26/2003 Document Revised: 07/23/2015 Document Reviewed: 04/12/2015 [employer] Patient Education ?2016 [employer] Incentive Spirometer An incentive spirometer is [...] 07/19/2007 Document Revised: 03/29/2015 Document Reviewed: 10/15/2014 [employer] Patient Education ?2016 [employer]. Pain Medicine Instructions HOW CAN PAIN MEDICINE [...] liver damage. Acetaminophen is found in many yxwl-xtz-cvaceex (OTC) and prescription medicines. If you are [...] 06/14/2001 Document Revised: 07/23/2015 Document Reviewed: 01/10/2015 [employer] Patient Education ?2016 [employer]. Preventing Constipation After Surgery Constipation is when [...] a bowel movement. ???Having hard, dry, or cukcvb-grgp-fddnwo stools. ???Feeling full or bloated. ???Having pain in the lower abdomen. ???Not feeling relief after having a bowel movement. HOME CARE INSTRUCTIONS Diet ???Eat foods that have a lot of fiber. These include fruits, vegetables, whole grains, and beans. Limit foods high in fat and processed sugars. These include scottish fries, hamburgers, cookies, and candy. ???Take a [...] softener, laxative, or fiber supplement. ???Only take acgg-saj-kfcxedp or prescription medicines as directed by your [...] 07/03/2013 Document Revised: 03/29/2015 Document Reviewed: 07/03/2013 [employer] Patient Education ?2016 [employer] Venous Thromboembolism, Prevention A venous thromboembolism [...] 02/24/2010 Document Revised: 11/30/2012 Document Reviewed: 07/03/2015 [employer] Patient Education ?2016 [employer] VIRUSES OR BACTERIA: WHAT'S GOT YOU [...] Relationship to Patient Clinician Signature Date/Time Normal [facility] Basic Metabolic Panelon 01-20 Calcium [Mass/Vol] 8.4 mg/dL Low 8.5-10.6 [facility] Chloride [Moles/Vol] 105 mmol/L Normal 98-107 [facility] CO2 [Moles/Vol] 32 mmol/L Normal 21-32 [facility] Creatinine [Mass/Vol] 0.77 mg/dL Normal 0.55-1.02 [facility] Glucose [Mass/Vol] 108 mg/dL High 70-99 [facility] Potassium [Moles/Vol] 4.1 mmol/L Normal 3.5-5.1 [facility] Sodium [Moles/Vol] 141 mmol/L Normal 136-145 [facility] Urea nitrogen (BldV) [Mass/Vol] 20 mg/dL High 7.0-18.0 [facility] Urea nitrogen/Creatin ine [Mass ratio] 26 mg/mg Normal [facility] Basic Metabolic Panelon 01-20 Calcium [Mass/Vol] 8.4 mg/dL Low 8.5-10.6 [facility] Chloride [Moles/Vol] 105 mmol/L Normal 98-107 [facility] CO2 [Moles/Vol] 31 mmol/L Normal 21-32 [facility] Creatinine [Mass/Vol] 0.86 mg/dL Normal 0.55-1.02 [facility] Glucose [Mass/Vol] 101 mg/dL High 70-99 [facility] Potassium [Moles/Vol] 4.1 mmol/L Normal 3.5-5.1 [facility] Sodium [Moles/Vol] 140 mmol/L Normal 136-145 [facility] Urea nitrogen (BldV) [Mass/Vol] 21 mg/dL High 7.0-18.0 [facility] Urea nitrogen/Creatin ine [Mass ratio] 24 mg/mg Normal [facility] Anesthesia Recordon 01-31-20 Anesthesia Record Patient: ANGELIKA MUIR MRN: [id number] Age: 78 years Sex: Female : 1940 Associated Diagnoses: None Author: Nadine Barrera MD Procedure Time Out [place] Protocol: patient identity verified, site verified, side verified, procedure to be done verified, patient position verified. REGIONAL ANESTHESIA PROCEDURE Procedure date and begin time: See nurses notes. Procedure date and end time: See nurses notes. Performed by: Nadine Barrera MD. Assisted by: no certified physician's assistant. Informed consent: signed by patient. Technique: [...] Diagnosis: M25.561 M17.11 Knee Pain . Normal [facility] Anesthesia Record Patient: ANGELIKA MUIR Age: 78 years Sex: Female : 1940 Associated Diagnoses: None Author: Nadine Barrera MD Procedure Time Out [place] Protocol: patient identity verified, site verified, side verified, procedure to be done verified, patient position verified. REGIONAL ANESTHESIA PROCEDURE Procedure date and begin time: See nurses notes. Procedure date and end time: See nurses notes. Performed by: Nadine Barrera MD. Assisted by: no certified physician's assistant. Informed consent: signed by patient. Technique: [...] M25.561 M17.11 Knee Pain OA . Normal [facility] Basic Metabolic Panelon 01-20 Calcium [Mass/Vol] 9.0 mg/dL Normal 8.5-10.6 [facility] Chloride [Moles/Vol] 106 mmol/L Normal 98-107 [facility] CO2 [Moles/Vol] 29 mmol/L Normal 21-32 [facility] Creatinine [Mass/Vol] 0.84 mg/dL Normal 0.55-1.02 [facility] Glucose [Mass/Vol] 105 mg/dL High 70-99 [facility] Potassium [Moles/Vol] 3.7 mmol/L Normal 3.5-5.1 [facility] Sodium [Moles/Vol] 143 mmol/L Normal 136-145 [facility] Urea nitrogen (BldV) [Mass/Vol] 23 mg/dL High 7.0-18.0 [facility] Urea nitrogen/Creatin ine [Mass ratio] 27 mg/mg Normal [facility] OR Nursingon 01-30-2019 OR Nursing Normal [facility] PACU I Nursingon 01-30-2019 PACU I Nursing CO NA PACU I Nursing Record Summary Primary Physician: Amrik Vickers MD Finalized Date/Time: 01/30/19 12:48:37 Pt. Name: TRAN MUIRPAOLA Nayak/Sex: 1940 Female Med Rec #: [id number] Physician: Amrik Vickers MD Financial #: [id number] Pt. Type: I Room/Bed: Admit/Disch: 01/30/19 05:59:00 - Institution: CO NA OR Main PACU I Case Times Entry 1 In PACU I 01/30/19 10:05:00 Ready for PACU I 01/30/19 12:04:00 Discharge Discharge from PACU 01/30/19 12:04:00 PACU I Discharge NA I Delay Reason Last Modified By: Ana Rosas RN 01/30/19 12:48:23 CO NA OR Main PACU I Case Attendees Entry 1 Case Attendee Ta EUCEDA Wiliam Role Performed RN Last Modified By: Ana Rosas RN 01/30/19 12:48:35 Finalized By: Ana Rosas RN Document Signatures Signed By: Ana Rosas RN 01/30/19 12:48 Normal [facility] PreOp Nursingon 01-30-2019 PreOp Nursing CO NA PreOp Nursing Record Summary Primary Physician: Amrik Vickers MD Finalized Date/Time: 01/30/19 09:02:48 Pt. Name: ANGELIKA MUIR Judy Nayak/Sex: 1940 Female Med Rec #: [id number] Physician: Amrik Vickers MD Financial #: [id number] Pt. Type: I Room/Bed: / Admit/Disch: 01/30/19 05:59:00 - Institution: IN NA OR PreOp Case Times Entry 1 [...] By: Chelsy Batista RN 01/30/19 09:02 Normal [facility] Basic Metabolic Panelon 10-3 Calcium [Mass/Vol] 9.0 mg/dL Normal 8.5-10.6 [facility] Chloride [Moles/Vol] 103 mmol/L Normal 98-107 [facility] CO2 [Moles/Vol] 31 mmol/L Normal 21-32 [facility] Creatinine [Mass/Vol] 0.78 mg/dL Normal 0.55-1.02 [facility] Glucose [Mass/Vol] 90 mg/dL Normal 70-99 [facility] Potassium [Moles/Vol] 4.1 mmol/L Normal 3.5-5.1 [facility] Sodium [Moles/Vol] 142 mmol/L Normal 136-145 [facility] Urea nitrogen (BldV) [Mass/Vol] 19 mg/dL High 7.0-18.0 [facility] Urea nitrogen/Creatin ine [Mass ratio] 24 mg/mg Normal [facility] CBC with Differentialon 10-3 Basophils (Bld) [#/Vol] 0.0 thou/mcL Normal 0.0-0.2 [facility] Basophils/100 WBC (Bld) 0.8 % Normal 0-3 [facility] Differential cell count method Nom (Bld) AUTOMATED DIFFERENTIAL Normal [facility] Eosinophils (Bld) [#/Vol] 0.1 thou/mcL Normal 0.0-0.4 [facility] Eosinophils/100 WBC (Bld) 2.0 % Normal 0-7 [facility] Erythrocyte distribution width (RBC) [Entitic vol] 14.4 % Normal 11.7-15.0 [facility] Hematocrit (Bld) [Volume fraction] 36.7 % Normal 34.0-50.0 [facility] Hemoglobin (Bld) [Mass/Vol] 12.1 g/dL Normal 11.5-17.0 [facility] Lymphocytes (Bld) [#/Vol] 1.3 thou/mcL Normal 0.7-4.5 [facility] Lymphocytes/100 WBC (Bld) 26.0 % Normal 14-46 [facility] MCH (RBC) [Entitic mass] 29.2 Picograms Normal 27.0-34.0 [facility] MCHC (RBC) [Mass/Vol] 32.9 g/dL Normal 32.0-36.0 [facility] MCV (RBC) [Entitic vol] 88.7 fL Normal 80-98 [facility] Monocytes (Bld) [#/Vol] 0.4 thou/mcL Normal 0.1-1.0 [facility] Monocytes/100 WBC (Bld) 8.5 % Normal 4-13 [facility] Neutrophils (Bld) [#/Vol] 3.1 thou/mcL Normal 1.5-7.8 [facility] Neutrophils/100 WBC (Bld) 62.7 % Normal 40-74 [facility] Platelet mean volume (Bld) [Entitic vol] 8.4 fL Normal 7.5-11.2 [facility] Platelets (Bld) [#/Vol] 214 thou/mcL Normal 140-415 [facility] RBC (Bld) [#/Vol] 4.13 x(10)6/mcL Normal 3.80-5.60 [facility] WBC (Bld) [#/Vol] 5.0 thou/mcL Normal 4.0-10.5 [facility] Culture Methicillin Resistan t Staph aureuson 01-19-2019 MRSA isol Org specific cx Ql (Unsp spec) [facility] Microbiology PROCEDURE: Culture Methicillin Resistant Staph aureus SOURCE: Nasal Swab BODY SITE: COLLECTED DATE/TIME: 01/19/2019 15:10 EDT RECEIVED DATE/TIME: 01/19/2019 15:10 EDT START DATE/TIME: 01/19/2019 15:10 EDT FREE TEXT SOURCE: NASAL SWAB-. INTERFACED REPORTS Final Report [] Verified Date/Time/Personnel: 01/20/2019 21:24 EDT CONTRIBUTOR_SYSTEM, CO_PN *MRSA SCREEN* NEGATIVE FOR METHICILLIN(OXACILLIN) RESISTANT STAPHYLOCOCCUS AUREUS. Normal [facility] Comment on above: Performed By: #### [id number] #### [place] [address] [place], [place] Partial Thromboplastin Time (aPTT)on 01-19-2019 aPTT Coag (PPP) [Time] 31 Sec Normal 23.2-34.6 [facility] Prothrombin Timeon 9 INR Coag (Bld) [Relative time] 1.0 {INR} Normal [facility] Comment on above: Result Comment: DURING THE INDUCTION PHA SE OF ORAL ANTICOAGULATION, THE INR MAY NOT REFLECT THE ANTICOAGULANT STATUS OF THE PATIENT. THERAPEUTIC RANGES FOR INR'S ARE: MOST CLINICAL SITUATIONS: INR 2.0-3.0 MECHANICAL PROSTHETIC VALVES: INR 2.5-3.5 CRITICAL: INR 5.0 PT Coag (PPP) [Time] 12.6 Sec Normal 11.9-14.6 [facility] XR C-Spine 4-5 Viewson 01-19 XR [...] disease, notably advanced at C5-C6 and C6-C7. [facility] thanks you for the opportunity to care for your patient. Workstation ID: [id number] FINAL REPORT Dictated By: Fritz Styles MD 01/19/2019 21:13 Assigned Physician: Fritz Styles MD Reviewed and Electronically Signed By: Fritz Styles MD 01/19/2019 21:17 Transcribed by: JESSIE 01/19/2019 21:13 Technologist: KAYLIN Gomes [facility] System Culture Anaerobicon 10-19-19 19 Bacteria identified Anaer cx Nom (Unsp spec) [facility] Microbiology PROCEDURE: Culture Anaerobic SOURCE: Joint Fl [...] EDT CONTRIBUTOR_SYSTEM, CO_PN CULTURE IN PROGRESS Normal [facility] Comment on above: Performed By: #### [id number] #### [address] Culture Body Fluid + Suscept ibility + Smear Directon 10-18-2018 Bacteria identified Sterile body fluid culture Nom (Unsp spec) [facility] Microbiology PROCEDURE: Culture Body Fluid [...] NO EPITHELIALS SEEN, NO ORGANISMS SEEN Normal [facility] Comment on above: Performed By: #### 636-1 #### [address] Culture Funguson 10-18-2018 Fungus identified Cx Nom (Unsp spec) [facility] Microbiology PROCEDURE: Culture Fungus SOURCE: [...] WILL BE HELD FOR 1-4 WEEKS Normal [facility] Comment on above: Performed By: #### 580-1 #### [facility] [address] [place], [place] XR SHOULDER LEFT MIN 2 VIEWS [...] I have reviewed andapproved this report. Normal [facility] Cardiovascular Lab Reporton 11-07-2016 Cardiovascular Lab Report [facility] Patient Name: Angelika Muir [facility] MR #: [id number] Physician: Ankur Bhakta M.D.Medicine Service Date: 11/06/2016Division of Birthdate: 1940Cardiology Room #: [facility], [place] [address]Mgfxd Fax Cardiovascular Laboratory ReportINDICATIONS: Ms. 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 Isaw her in our [place] office. She has had a complete evaluation [...] 11/06/2016/03:29 P/Ankur France M.D.Date Trans: 11/07/2016 06:05 A/Tyrese_JN:[id number]: Eduardo Rose M.D. [address] [place] [address] [place] [facility] Vital Signs Date Time Vital Sign Value Performing Clinician Facility 06-24-2023 16:230400 Body height 162.6 cm [employer] Work Phone: [employer] 06-24-2023 16:23-0400 Body mass index (BMI) [Ratio] 31.07 kg/m2 [employer] Work Phone: [employer] 06-24-2023 16:23-0400 Body weight 82.1 kg [employer] [address] Work Phone: [employer] 06-24-2023 16:23-0400 Diastolic blood pressure 78 mm[Hg] Otis Furlong DO Work Phone: [facility] [employer] [facility] 06-24-2023 16:23-0400 Systolic blood pressure 132 mm[Hg] Otis Furlong DO Work Phone: [facility] 05-24-2023 14:31-0500 Body height 162.6 cm Otis Furlong DO Work Phone: [facility] 05-24-2023 14:31-0500 Body mass index (BMI) [Ratio] 31.07 kg/m2 Otis Furlong DO Work Phone: [facility] 05-24-2023 14:31-0500 Body temperature 98.29 [degF] Otis Furlong DO Work Phone: [facility] [employer] [facility] 05-24-2023 14:31-0500 Body weight 82.1 kg Otis Furlong DO Work Phone: [facility] [employer] [facility] 05-24-2023 14:31-0500 Diastolic blood pressure 60 mm[Hg] Otis Furlong DO Work Phone: [facility] 05-24-2023 14:31-0500 Heart rate 81 /min Otis Furlong DO Work Phone: [facility] [employer] [facility] 05-24-2023 14:31-0500 SaO2% (BldA) [Mass fraction] 96 % Otis Furlong DO Work Phone: [facility] [employer] [facility] 05-24-2023 14:31-0500 Systolic blood pressure 120 mm[Hg] Otis Furlong DO Work Phone: [facility] 04-02-2023 09:47-0500 Body height 162.6 cm Veronica Chahal APRNRickyUROLOGY PHYSICIAN Work Phone: [facility] 04-02-2023 09:47-0500 Body mass index (BMI) [Ratio] 30.21 kg/m2 Veronica TANGUROLOGY PHYSICIAN Work Phone: [employer] 04-02-2023 09:47-0500 Body temperature 97 [degF] Veronica Chahal APRNRickyUROLOGY PHYSICIAN [facility] 04-02-2023 09:47-0500 Body weight 79.83 kg Veronica TANGUROLOGY PHYSICIAN Work Phone: [facility] 04-02-2023 09:47-0500 Diastolic blood pressure 70 mm[Hg] Veronica Chahal APRNRickyUROLOGY PHYSICIAN [facility] Phone: [facility] 04-02-2023 09:47-0500 Heart rate 105 /min Veronica TANGUROLOGY PHYSICIAN [facility] Phone[facility] 04-02-2023 09:47-0500 Respiratory rate 16 /min Veronica TANGUROLOGY PHYSICIAN Work Phone[facility] 04-02-2023 09:47-0500 SaO2% (BldA) [Mass fraction] 97 % Veronica TANGUROLOGY PHYSICIAN Work Phone: [facility] 04-02-2023 09:47-0500 Systolic blood pressure 130 mm[Hg] Veronica TANGUROLOGY PHYSICIAN Work Phone: [employer] 03-24-2021 15:45-0500 Body height 166.37 cm [employer] Other [employer] Other 03-24-2021 15:45-0500 Body mass index (BMI) [Ratio] 35.23 kg/m2 [employer] Other [employer] Other 03-24-2021 15:45-0500 Body temperature 99.4 [degF] [employer] Other [employer] Other 03-24-2021 15:45-0500 Body weight 97.52 kg Yolanda Bermanerer Other [employer] Other 03-24-2021 15:45-0500 Diastolic blood pressure 78 mm[Hg] Yolanda Schwerer Other [facility] Other 03-24-2021 15:45-0500 SaO2% (BldA) [Mass fraction] 96 % Yolanda Schwerer Other [facility] Other 03-24-2021 15:45-0500 Systolic blood pressure 132 mm[Hg] Yolanda Schwerer Other [facility] Other Encounters Encounter Date Encounter Type Care Provider Facility Start: 06-24-2023 End: 06-24-2023 Patient encounter procedure Otis Chaves DO Work Phone: [facility] Comment on above: Medicare annual well ness visit, subsequent (Primary Dx); Screening for depression Start: 05-25-2023 ambulatory [facility] Start: 05-25-2023 End: 05-25-2023 Patient encounter procedure Otis Chaves DO Work Phone: [facility] Comment on above: Abnormal urinalysis (Primary Dx); Abnormal kidney function Start: 05-25-2023 End: 05-25-2023 ambulatory [facility] Start: 05-24-2023 End: 05-25-2023 [facility] Start: 05-24-2023 End: 05-24-2023 Office outpatient visit 15 minutes Otis Chaves DO Work Phone: [facility] Comment on above: Abnormal kidney func tion (Primary Dx); Hyperglycemia; Class 1 obesity due to excess calories with serious comorbidity and body mass index (BMI) of 31.0 to 31.9 in adult; Memory impairment Start: 05-10-2023 End: 05-11-2023 ambulatory Tony Holguin MD Facility: [facility] Start: 04-19-2023 End: 04-20-2023 Orders Only Veronica Chahal SENIOR ANALYSIS SPECIALIST-UROLOGY PHYSICIAN Work Phone: [facility] Comment on above: Bilateral hip pain ( Primary Dx) Start: 04-02-2023 End: 04-02-2023 ambulatory VERONICA WYNN [facility] Start: 04-02-2023 End: 04-02-2023 Office outpatient visit 15 minutes Veronica Wynn She SENIOR ANALYSIS SPECIALIST-UROLOGY PHYSICIAN Work Phone: [facility] Comment on above: PMR (polymyalgia rhe umatica) ([facility]) (Primary Dx); Bilateral hip pain; Confusion caused by a drug Start: 09-07-2022 End: 09-07-2022 ambulatory Gennaro Cheng Facility:[facility] Start: 05-25-2022 End: 05-26-[address] SARIKA MUHAMMAD . Facility: Start: 07-15-2021 End: 07-15-2021 ambulatory Yolanda Schwerer Other [facility] Other Start: 07-15-2021 Telephone encounter Yolanda Schwerer [facility] [place] Start: 04-28-2021 End: 04-28-2021 ambulatory Yolanda Schwerer Other [facility] Other Start: 04-28-2021 Telephone encounter Yolanda Schwerer [facility] [place] Start: 04-03-2021 End: 04-03-2021 ambulatory Yolanda Schwerer Other [facility] Other Start: 04-03-2021 [facility] Start: 03-24-2021 End: 03-24-2021 ambulatory Yolanda Schwerer Other [facility] Other Start: 03-24-2021 Office outpatient vi sit 15 minutes Yolanda Schwerer [facility] [place] Start: 03-20-2021 End: 03-20-2021 ambulatory Yolanda Schwerer Other [facility] Other Start: 03-20-2021 Telephone encounter Yolanda Schwerer [facility] Start: 03-03-2021 End: 03-03-2021 ambulatory Yolanda Schwerer Other [facility] Other Start: 03-03-2021 Telephone encounter Yolanda Bermanerer [facility] [place] Start: 07-21-2017 Ambulatory JOSE LUIS LIZAMA [facility] Start: 11-06-2016 End: 11-07-2016 Ambulatory ANKUR FRANCE Facility:[facility] Procedures Date Procedure Procedure Detail Performing Clinician Start: 06-24-2023 Adult depression screening assessment Otis Chaves DO Work Phone: Start: 05-25-2023 Urnls dip stick/tabl et rgnt non-auto w/o micrscp Otis Johnie Burlesonng DO Work Phone: Start: 05-24-2023 Adult depression screening assessment Otis Chaves DO Work Phone: Start: 12-23-2022 Adult depression screening assessment Veronica Chahal SENIOR ANALYSIS SPECIALIST-UROLOGY PHYSICIAN Work Phone: Start: 06-18-2015 H/O: artificial joint Status p ost total shoulder arthroplasty Veronica Chahal SENIOR ANALYSIS SPECIALIST-UROLOGY PHYSICIAN Work Phone: Plan of Treatment Date Care Activity Detail Author Start: 06-23-2024 Adult BMI Screening Adult BMI Screen ing [facility] Start: 06-23-2024 [facility] Start: 06-23-2024 Fall Risk Screening Fall Risk Screen ing [facility] Start: 06-23-2024 Medicare Annual Wellness Visit Medicare Annual Wellness Visit [facility] Start: 05-23-2024 Adult BMI Screening Adult BMI Screen ing [facility] Start: 05-23-2024 Depression Screening Depression Scre ening [facility] Start: 05-23-2024 Fall Risk Screening Fall Risk Screen ing [facility] Start: 05-23-2024 Tobacco Screening Tobacco Screening [facility] Start: 04-02-2024 Adult BMI Screening Adult BMI Screen ing [facility] Start: 04-02-2024 Tobacco Screening Tobacco Screening [facility] Start: 12-24-2023 Depression Screening Depression Scre ening [facility] Start: 12-24-2023 Fall Risk Screening Fall Risk Screen ing [facility] Start: 12-24-2023 Tobacco Screening Tobacco Screening [facility] Start: 11-21-2023 Influenza vaccination Influenza Vacc ine [facility] Start: 07-29-2023 End: 07-29-2023 Patient encounter procedure 07/29/2023 3:30 PM EDT Office Visit [facility] [address] [place] [address] Otis Chaves, DO [address], [facility] [place] [address] [facility] Start: 06-20-2023 Influenza vaccination Influenza Vacc ine [facility] Comment on above: Postponed from 11/20 (Patient Refused) Start: 04-02-2023 End: 04-02-2024 XR Hip - bilateral 2 Views X-ray hips bilateral with or without pelvis 2 views Imaging Routine Bilateral hip pain Expected: 04/02/2023, Expires: 04/02/2024 [facility] Work Phone: Comment on above: Expected: 04/02/2023 , Expires: 04/02/2024 Start: 11-20-2022 Influenza vaccination Influenza Vacc ine [facility] Start: 1959 DTaP,Tdap and Td Vaccines (1 - Tdap) DTaP,Tdap and Td Vaccines (1 - Tdap) [facility] Start: 02-24-1958 Adult BMI Follow Up Plan Adult BMI Follow Up Plan [facility] Start: 1940 Medicare Annual Wellness Visit Medicare Annual Wellness Visit [facility] End: 05-23-2024 Hemoglobin A1c/Hemoglobin.total in Blood Hemoglobin A1c Lab Routine Hyperglycemia 1 Occurrences starting 05/24/2023 until 05/23/2024 [facility] Work Phone: Comment on above: 1 Occurrences starti ng 05/24/2023 until 05/23/2024 Hemoglobin A1c/Hemoglobin.total in Blood Hemoglobin A1c Lab Routine Hyperglycemia 05/24/2023 11:12 PM EST [facility] Immunizations Immunization Date Immunization Notes Care Provider Fa cility 05-25-2022 COVID-19, mRNA, LNP- S, PF, 100mcg/0.5mL Dose Veronica Chahal SENIOR ANALYSIS SPECIALIST-UROLOGY PHYSICIAN Work Phone: [facility] [employer] 10-24-2021 zoster vaccine recombinant Veronica Chahal SENIOR ANALYSIS SPECIALIST-UROLOGY PHYSICIAN Work Phone: [facility] 07-22-2021 zoster vaccine recombinant Veronica Chahal SENIOR ANALYSIS SPECIALIST-UROLOGY PHYSICIAN Work Phone: [facility] [employer] 05-09-2021 Influenza, injectabl e, Madin Bertrand Canine Kidney, preservative free, quadrivalent Veronica Chahal SENIOR ANALYSIS SPECIALIST-UROLOGY PHYSICIAN Work Phone: [facility] 05-09-2021 influenza virus vaccine, unspecified formulation Veronica Chahal SENIOR ANALYSIS SPECIALIST-UROLOGY PHYSICIAN Work Phone: [facility] 07-05-2020 COVID-19 Vaccine Pfi zer - Documentation Purposes Only Yolanda Calvo Other [facility] Other 06-07-2020 COVID-19 Vaccine Pfi zer - Documentation Purposes Only Yolanda Gloverr Other [facility] Other 05-02-2018 influenza, seasonal, injectable, preservative free Veronica Chahal SENIOR ANALYSIS SPECIALIST-UROLOGY PHYSICIAN [facility] Phone[facility] 04-30-2018 zoster vaccine recombinant Yolanda Schwerer Other [facility] Other 01-06-2018 influenza, high dose seasonal, preservative-free Veronica Chahal SENIOR ANALYSIS SPECIALIST-UROLOGY PHYSICIAN Work Phone: [facility] 01-06-2018 zoster vaccine recombinant Yolanda Schwerer Other [facility] Other 03-19-2017 pneumococcal conjuga te vaccine, 13 valent Yolanda Schwerer Other [facility] Other 02-25-2017 influenza, high dose seasonal, preservative-free Veronica Chahal SENIOR ANALYSIS SPECIALIST-UROLOGY PHYSICIAN Work Phone: [facility] 04-27-2016 pneumococcal polysaccharide vaccine, 23 valent Yolanda Schwerer Other [facility] Other 12-18-2014 pneumococcal polysaccharide vaccine, 23 valent Yolanda Schwerer Other [facility] Other 12-18-2014 zoster vaccine, live Yolanda Schwerer Other [facility] Other 02-11-2009 zoster vaccine, live Yolanda Schwerer Other [facility] Other Payers Date Payer Category Payer Self-pay 2015 Unknown [id number] 2003 Medicare [id number] 2003 Medicare [id number] 2003 Medicare [id number] 1959 Medicare [id number] 1959 Unknown [id number] 2. [id number] 1938 Unknown [id number] 2.16.84 [id number] 1938 Unknown [id number] 2.16.8 [id number] 1938 Unknown [id number] 2.16.8 [id number] 1938 Unknown [id number] 2.16.8 [id number] 1938 Unknown [id number] 2.16.84 [id number] 1938 Unknown [id number] 2.16. [id number] 1938 Unknown [id number] 2.16. [id number] 1938 Unknown [id number] 2.16. [id number] Medicare [id number] 2.1 [id number] Unknown [id number] 2.16.8 [id number] Social History Date Type Detail Facility Unknown if ever smoked [facility] Other Start: 04-02-2023 End: 06-24-2023 Sex Assigned At [facility] [employer] [facility] Start: 01-06-2022 Tobacco smoking status NHIS Ex-smoker [facility] History of tobacco use Current smoker [facility] History of tobacco use Cigarette Smoker P [facility] Start: 01-06-2022 Tobacco use and exposure Smokeless tobacco non-user [facility] Start: 04-02-2023 End: 05-24-2023 Alcohol intake Ex-drinker (finding) [facility] Start: 04-02-2023 End: 06-24-2023 History of Social function [facility] Adolescent depressio n screening assessment 0 [facility] Start: 01-06-2022 Tobacco Comment only smoked for 3 months 60 years ago, 2 cigarettes a day [facility] Start: 10-15-2021 Alcohol Comment rare- on new years clive [facility] Start: 1940 Sex Assigned At Not on file [facility] Has the electric, [employer] s, oil, or water company threatened to shut off services in your home in past 12Mo No [facility] [facility] Do you belong to any clubs or organizations such as taoism groups, unions, fraternal or athletic groups, or school groups? Yes [facility] Are you now , , , , never or living with a partner? [facility] How often to you hav e a drink containing alcohol? Never [facility] Do you feel stress - tense, restless, nervous, or anxious, or unable to sleep at night because your mind is troubled all the time - these days [OSQ] Not at all [facility] Clinical Notes 04-18-2020 to 06-24-2023 Otis Martineztamiejosue, DO - 06/24/2023 4:20 PM EDTLenopk Martinezalex, DO - 05/25/2023 4:35 PM ESTSignificant Event - Otis Martineztamiejosue, DO - 05/24/2023 6:08 PM ESTLenopk Martineztamiejosue, DO - 05/24/2023 2:00 PM EST Note Date & Type Note Facility 06-24-2023 History of Presen t illness Narrative Subjective SUBJECTIVE: Patient ID: Angelika Muir is a 83 y.o. female who presents for a Medicare Annual Wellness exam. HPI The following portions of the patient's history were reviewed and updated as appropriate: allergies, current medications, past family history, past medical history, past social history, past surgical history and problem list. AWV FLOWSHEET : Lifestyle Assessment Do you smoke or use smokeless tobacco?: No If you smoke or use smokeless tobacco, are you ready to quit?: NA Are you exposed to secondhand smoke?: No On average, how many drinks of alcohol do you consume in a week?: None Do you exercise for 30 or more minutes on average at least 3 days a week?: (!) Never Do you have any tooth, denture, or oral problems?: No Do you snore or has anyone told you that you snore?: No Do you try to eat a balanced diet?: Yes Do you experience leakage of urine, also known as urinary incontinence?: (!) Often Do you have difficulty performing any of these activities? (check all that apply): (!) Walking Do you have difficulty performing any of these activities? (check all that apply): (!) Paying bills Fall Risk Fall Risk Assessment Completed?: Yes Have you fallen in the past year?: (!) Yes How many times?: 1 Were you injured?: No Are you worried about falling?: (!) Yes Do you feel unsteady when standing or walking?: (!) Yes Risk Stratification: Moderate Risk Depression Screening Little interest or pleasure in doing things: Not at all Feeling down, depressed, or hopeless: Not at all Trouble falling or staying asleep, or sleeping too much: Not at all Feeling tired or having little energy: Not at all Poor appetite or overeating: Not at all Feeling bad about yourself - or that you are a failure or have let yourself or your family down: Not at all Trouble concentrating on things, such as reading the newspaper or watching television: Not at all Moving or speaking so slowly that other people could have noticed. Or the opposite - being so fidgety or restless that you have been moving around a lot more than usual: Not at all Thoughts that you would be better off , or of hurting yourself in some way: Not at all PEG Scale Safety Assessment Do you have throw rugs on the floor?: No Do you feel safe at your home?: Yes Do you feel unsteady when walking?: (!) Yes Are you having difficulty with driving?: No Do you have trouble seeing?: No What assistive device do you use? (check all that apply): (!) Cane Hearing Assessment Do you strain or struggle to hear/understand conversations?: No Do you have trouble hearing the television or radio when others do not?: No Does your family ever voice concerns about your hearing?: No Do you wear hearing aid/s?: No Personal Health During the past 4 weeks, how would you rate your overall health?: Very Good Do you understand how to take all of your medications?: Yes How confident are you that you can control and manage most of your health problems?: (!) Somewhat confident In the past 12 months, how many times have you been hospitalized?: None End of Life Planning Do you have a living will?: Yes Do you have a durable power of assistant attorney general?: Yes Cognitive Screening Do you have trouble remembering or recalling facts or events?: (!) Yes Do family members or caregivers report that you have difficulty remembering things?: (!) Yes Clock Drawing Test: Abnormal REVIEW OF SYSTEMS: Review of Systems Objective PHYSICAL EXAMINATION: Vitals: 06/24/23 1623 Weight: 82.1 kg (181 lb) Height: 162.6 cm (5' 4 ) Physical Exam Assessment/Plan ASSESSMENT/PLAN Encounter Diagnoses Name Primary? Medicare annual wellness visit, subsequent Yes Screening for depression Health maintenance discussed. Depression screen was negative. At least 3 minutes spent administering and discussing. Cognitive evaluation did reveal impairment. She was recommended to come back for further evaluation. She has advanced directives in place. She is a moderate fall risk. She ambulates with a cane. Return in about 1 year (around 06/23/2024). documented in this encounter [facility] 05-25-2023 History of Presen t illness Narrative Patient dropped off a urine to be tested documented in this encounter [facility] 05-24-2023 Progress note Formatting of t his note might be different from the original. She would only be 5, not 9 [facility] 05-24-2023 Miscellaneous Notes Formattin g of this note might be different from the original. She would only be 5, not 9 documented in this encounter [facility] 05-24-2023 History of Presen t illness Narrative Subjective Patient ID: Angelika Muir is a 83 y.o. female. Angelika presents today for a follow-up visit. It apparently was on my schedule for cognitive evaluation and possibly deeming her mentally incompetent. She is here by herself. She had no idea that was the reason for the visit. There was also requested due genetic testing on her but she did not consent to this. She does not recall anybody calling her and asking her for forms to be sent to my office to test her for genetic defects. She believes it is her daughter who is requesting these things. She says it for daughter wants to get checked for genetic abnormalities then she should get herself checked but she does not want to be checked. She did have breast cancer when she was 38 but that was 45 years ago. She would not take any action on the test results. Her daughter is already on the checking account and can write checks. She does have durable power of assistant attorney general of healthcare and finance. She also has a living well. She lives on her own. Her daughter does help her with her bills but she does essentially pay them herself. She cooks and cleans for herself. She drives around town. She goes shopping by herself. She can do all ADLs and IADLs essentially by herself. She does admit to occasional forgetfulness but does not feel she has dementia or cognitive impairment. The wound on her leg has healed. The following portions of the patient's history were reviewed and updated as appropriate: allergies, current medications, past family history, past medical history, past social history, past surgical history, problem list, and medication reconciliation was completed including current medication and post discharge medication. Review of Systems Constitutional: Negative. Respiratory: Negative. Gastrointestinal: Negative. Genitourinary: Positive for difficulty urinating (Occasional incontinence) and urgency. Psychiatric/Behavioral: Positive for memory loss. Negative for agitation, behavioral problems, confusion, decreased concentration, dysphoric mood, hallucinations, self-injury, sleep disturbance and suicidal ideas. The patient is not nervous/anxious and is not hyperactive. Objective Physical Exam Neurological: General: No focal deficit present. Psychiatric: Mood and Affect: Mood normal. Behavior: Behavior normal. Thought Content: Thought content normal. Assessment/Plan Angelika was seen today for memory loss. Diagnoses and all orders for this visit: Abnormal kidney function - Comprehensive metabolic panel; Future - TSH; Future - POCT urinalysis dipstick only Check CMP and UA. Her GFR was down possibly due to advanced age and past NSAID use. Blood pressure today was 120/60 without any medication. Hyperglycemia - Hemoglobin A1c; Future - TSH; Future Check A1c. Class 1 obesity due to excess calories with serious comorbidity and body mass index (BMI) of 31.0 to 31.9 in adult - TSH; Future Check TSH. Memory impairment - TSH; Future Check a TSH. Her fast score is likely 2. She has no significant cognitive impairment. She can do her ADLs and IADLs essentially. Her daughter's already on the check a count to help pays her bills. I do not believe her cognitive impairment is significant enough to deemed her incompetent at this point. We did discuss further evaluation with a neurocognitive evaluation but patient did not want to pursue this. I do not have any evidence that she is a harm to herself or unable to make informed decisions. She refused to have genetic testing done as well. documented in this encounter [facility] 04-02-2023 History of Presen t illness Narrative Subjective Patient ID: Angelika Muir [...] nursing note reviewed. Exam conducted with a animal nutritionist present (ES Moncada present). Neck: Vascular: No [...] orders for this visit: PMR (polymyalgia rheumatica) ([facility]) - Ambulatory referral to Pain Management ([facility]); [...] El 04/02/23 1303 documented in this encounter [facility] 05-24-2022 Note PROCEDURE: XR HIP RT 2 [...] by: CAMILO ARNOLD Date: 2022-05-24 19:59 [facility] 03-24-2021 Evaluation note Encounter Date Diagnosis Assessment Notes Mar, Skin rash (ICD-10 - R21) i think eczema, will do clobetasol she already has this. will continue on lotramin. she will call in a few days if not improved. [facility] Other 03-11-2021 NoteHNO ID: [id number] Author: Negro Pompa Service: ? Author Type: Physician Type: Progress Notes Filed: 05/30/2020 6:55 PM Note Text: [facility] [...] questions and concerns were addressed. Negro Pompa, [facility]01-28-2021 NotePatient Outreach (COOCC3) ANGELIKA MUIR ([id number]) 1940 F Date Time Provider Department 04/18/20 PENNY RIBEIRO During your visit today, we recorded the following information about you: Allergies As of Date: 04/18/2020 Noted Allergy Reaction TAPE (ADHESIVE TAPE (ROSINS)) 06/28/2012 2 - Rash Date Reviewed: 01/09/2020 Reviewed by: Niru Cunningham - Fully Assessed Order(s):SARS-COVID VACCINE 1ST DOSE APPT [[id number]] Order #: [id number] FUTURE Prescriptions as of 04/18/2020 Sig: SERTRALINE [...] breast cancer [Z85.3] 01/10/2014 Encounter Status:Closed by [employer], PRODUSER on 04/22/20[facility] Evaluation noteNo [employer] Other Evaluation note* Diagnosis PMR (polymyalgia rheumatica) ([facility])- Primary Polymyalgia rheumatica Bilateral hip pain Pain in joint, pelvic region and thigh Confusion caused by a drug Drug-induced delirium [facility]* Diagnosis Bilateral hip pain- Primary Pain in joint, pelvic region and thigh documented in this encounter [facility]* Diagnosis Abnormal kidney function- Primary Nonspecific abnormal results of kidney function study Hyperglycemia Other abnormal glucose Class 1 obesity due to excess calories with serious comorbidity and body mass index (BMI) of 31.0 to 31.9 in adult Memory impairment Memory loss documented in this encounter [facility]* Diagnosis Abnormal urinalysis- Primary Other nonspecific finding on examination of urine Abnormal kidney function Nonspecific abnormal results of kidney function study documented [facility] this encounter [facility]* Diagnosis Medicare annual wellness visit, subsequent- Primary Screening for depression [facility] N[facility] - Reported* Type Description Date Medical History hx of Low BP Medical History vertigo Medical History depression Surgical History CARDIAC LOOP RECORDER IMPLANT Surgical History BILATERAL HIP ARTHROPLASTY Surgical History BILATERAL [facility] JOINT ARTHROPLAST Y Surgical History TRIGGER RELEASE RIGHT RING FING ER Surgical History BILATRAL FOOT SURGERY Surgical History LEFT TOTAL SHOULDER X2 Hospitalization History see surgical hx [employer] Other InstructionsNot on filedocumented in this encounter [facility] filed[facility] in this [facility] SystemInstructionsNot on filedocumented in this encounter [facility] Summary Purpose Family History No Family History [...] Assessments Note Patient: ANGELIKA MUIR MR N: [id number] Age: 78 years Sex: Female : 1940 Associated Diagnoses: None Author: Elbert Gleason MD Assessment Assessment Diagnosis: Osteoarthritis (RHZ14-DX M17.11, 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 Right TKA. Dr. Vickers. [...] MD DATE OF SERVICE: 01/19/2019 NAME: ANGELIKA MUIR DATE OF : 1940 SURGERY DATE: 01/30/2019 [...] Pain is currently described as intermittent but qizigjkc-ru-lalgpj, particularly with activity. Symptoms have failed to respond to more conservative measures, and she now presents for surgical intervention. Please see below regarding the status of active medical conditions and assessment and plan for preoperative medical risk stratification. Medical Illnesses: 1. Osteoarthritis affecting (more content not included)... Note CLINICAL SUMMARY Please take this summary document to your follow up appointments. [facility] 02/02/19 09:32 [address] [place]. [address] PATIENT INFORMATION Name: ANGELIKA MUIR Address: [address] [place] [id number] Age: 78 Years Phone: [phone] : 1940 12:00 MRN: [facility])-[id number] Sex: Female Race: White Ethnicity: Not Hispan/Lat Admitted From: Clinic or [facility] Medical Service: Orthopedic Surgery Nurse [...] included)... Note Patient: ANGELIKA MUIR MR N: [id number] Age: 78 years Sex: Female : 1940 Associated Diagnoses: None Author: Nate SIEGLE, Joséar Comments Supervising Physician Comments Documentation By: Consulting [...] (more content not included)... Note HNO ID: [id number] Author: Cheryle Wilcox (Aa) Service: ? Author Type: Food Mixer Repairer Type: Anesthesia Procedure Notes Filed: 05/01/2020 3:33 PM Note Text: ANESTHESIOLOGY PROCEDURE NOTE Airway General Information Procedure Start Time/Medication Administration: 05/01/2020 3:28 PM Patient location during procedure: OR Timeout Performed Pre-procedure: timeout performed Consent Obtained: Yes Patient identity confirmed: arm band, care marketing team lead and patient Staffing Anesthesiologist: Ihsan Gamino CAA: Ankur Wilcox (Aa) Indications and Patient Condition Preoxygenated: yes Patient position: sniffing Indications for airway management: anesthesia anesthesia circuit Method: asleep Final Airway Details Final airway type: supraglottic airway Final Supraglottic Airway: IGEL Size 4 Seal Adequate: yes SIGNATURE: AZ Gonzales PATIENT NAME: Angelika Muir DATE: May 01, 2020 TIME: 3:33 PM CSN: [id number] Note HNO ID: [id number] Author: Ariana Gay Service: Urology Author Type: Resident Type: Brief Op Note Filed: 05/01/2020 4:09 PM Note Text: BRIEF OPERATIVE / PROCEDURE NOTE LOG ID: [id number] SURGERY/PROCEDURE DATE: 05/01/2020 INCISION/PROCEDURE START TIME: 3:28 PM INCISION CLOSE/PROCEDURE END TIME: 4:05 PM SURGEON(S)/PROCEDURALIST(S) AND CRYPTOLOGIC SUPERVISOR(S): Surgeon(s) and Role: * Negro Pompa - [...] 01, 2020 TIME: 4:07 PM PAGER/CONTACT #: [phone] (more content not included)... Hospital Course Note CLINICAL SUMMARY Please take this summary document to your follow up appointments. [facility] 02/02/19 09:32 [address] [place]. [address] PATIENT INFORMATION Name: ANGELIKA MUIR Address: [address] [place] [id number] Age: 78 Years Phone: [phone] : 1940 12:[birth year] MRN: ([id number] Sex: Female Race: White Ethnicity: Not Hispan/Lat Admitted From: Clinic or [facility] Medical Service: Orthopedic Surgery Nurse Unit/Bed: (IN) 2N 0219-01 Admit Date: 01/30/2019 05:59 PCP: Eduardo Rose MD PHYSICIANS INVOLVED WITH CARE Attending Physicians: Rancho SIEGEL , Amrik Sutton - Orthopaedic Surg Admitting Physician: Amrik Vickers MD - Orthopaedic Surg Primary Care Physician:Eduardo Rose MD,Internal Medicine, - Consults: Rosibel SIEGEL , Elbert Kim - Internal Medicine RAMÍREZ Rod (more content not included)... Procedure Findings Note HNO ID: [id number] Author: Cheryle Wilcox (Aa) Service: ? Author Type: Food Mixer Repairer Type: Anesthesia Procedure Notes Filed: 05/01/2020 3:33 PM Note Text: ANESTHESIOLOGY PROCEDURE NOTE Airway General Information Procedure Start Time/Medication Administration: 05/01/2020 3:28 PM Patient location during procedure: OR Timeout Performed Pre-procedure: timeout performed Consent Obtained: Yes Patient identity confirmed: arm band, care marketing team lead and patient Staffing Anesthesiologist: Ihsan Gamino CAA: Ankur Wilcox (Aa) Indications and Patient Condition Preoxygenated: yes Patient position: sniffing Indications for airway management: anesthesia anesthesia circuit Method: asleep Final Airway Details Final airway type: supraglottic airway Final Supraglottic Airway: IGEL Size 4 Seal Adequate: yes SIGNATURE: AZ Gonzales PATIENT NAME: Angelika Muir DATE: May 01, 2020 TIME: 3:33 PM CSN: [id number] Note HNO ID: [id number] Author: Ariana kaplan (Res) Victor Hugo Service: Urology Author Type: Resident Type: Brief Op Note Filed: 05/01/2020 4:09 PM Note Text: BRIEF OPERATIVE / PROCEDURE NOTE LOG ID: [id number] SURGERY/PROCEDURE DATE: 05/01/2020 INCISION/PROCEDURE START TIME: 3:28 PM INCISION CLOSE/PROCEDURE END TIME: 4:05 PM SURGEON(S)/PROCEDURALIST(S) AND CRYPTOLOGIC SUPERVISOR(S): Surgeon(s) and Role: * Negro Slopnick - Primary No Additional Staff SURGERY/PROCEDURE(S): Release [...] included)... Note Patient: ANGELIKA MUIR MR N: [id number] Age: 78 years Sex: Female : 1940 [...] Referred To Contact Diagnoses PMR (polymyalgia rheumatica) ([facility]) Veronica Chahal, SENIOR ANALYSIS SPECIALIST-UROLOGY PHYSICIAN [address] [place] [address] Referral ID Status Reason Start Date Expiration Date V isits Requested Visits Authorized [id number] Pending Review 1 1 Specialty Diagnoses / Procedures Referred By Contac t Referred To Contact Pain Medicine Diagnoses PMR (polymyalgia rheumatica) ([facility]) Bilateral hip pain Veronica Chahal, SENIOR ANALYSIS SPECIALIST-UROLOGY PHYSICIAN [address] [place] [address] [address] Referral ID Status Reason Start Date Expiration Date V isits Requested Visits Authorized [id number] Pending Review 04/02/2023 04/01/2024 1 1 Additional Source Comments INFORMATION SOURCE (unrecogn ized section and content) DATE CREATED AUTHOR 09/09/2017 [facility] DATE CREATED AUTHOR AUTHOR'S ORGANIZ ATION 09/15/2017 [facility] DATE CREATED AUTHOR AUTHOR'S ORGANIZ ATION 02/06/2019 [facility] DATE CREATED AUTHOR AUTHOR'S ORGANIZ ATION 11/22/2019 [facility] DATE CREATED AUTHOR AUTHOR'S ORGANIZ ATION 05/08/2020 [facility] DATE CREATED AUTHOR AUTHOR'S ORGANIZ ATION 04/05/2021 [facility] DATE CREATED AUTHOR AUTHOR'S ORGANIZ ATION 05/31/2022 [facility] DATE CREATED AUTHOR AUTHOR'S ORGANIZ ATION 09/21/2022 [facility] DATE CREATED AUTHOR AUTHOR'S ORGANIZ ATION 05/26/2023 [facility] DATE CREATED AUTHOR AUTHOR'S ORGANIZ ATION 05/26/2023 [facility] DATE CREATED AUTHOR AUTHOR'S ORGANIZ ATION 05/28/2023 [facility] REASON FOR VISIT (unrecogniz ed section and content) Reason Comments Osteoarthritis Pain management Reason Comments Memory Loss Reason Comments medicare annual wellness Care Teams (unrecognized sec tion and content) Retail Wireless Associate Relationship Specialty Start Date End Date Otis Chaves DO [address] [facility], [place] [address] PCP - General Family Medicine 10/03/21 Retail Wireless Associate Relationship Specialty Start Date End Date Otis Chaves DO [address], [place] [address] PCP - [facility] 10/03/21 Retail Wireless Associate Relationship Specialty Start Date End Date Otis Chaves DO [address], [place] [address] PCP - [facility] 10/03/21 Retail Wireless Associate Relationship Specialty Start Date End Date Otis Chaves DO [address], [place] [address] PCP - [facility] 10/03/21 Retail Wireless Associate Relationship Specialty Start Date End Date Otis Chaves DO [address], [place] [address] PCP - [facility] 10/03/21 FOR RECORDS PERTAINING TO PATIENTS WHO [...] BE BASED ON THE PRIMARY CLINICAL RECORDS. [employer] [facility]. provides no warranty or guarantee of the accuracy or completeness of information in this document.
--- NOTE | 2023-07-01 09:37 | MR_ITS ---
The [address] [address] Patient Name: AMISHA GARCIA MRN: [id number] date: 1940 Sex: F Assigned Patient Location: MRI Current Patient Location: MRI Accession/Order Number: [id number] Exam Date: 07/01/2023 09:50 Report Date: 07/01/2023 11:06 At the request of: ALCIDES LYNN Procedure: MR lumbar spine wo con MR lumbar spine wo con, 07/01/2023 9:50 AM EDT INDICATION: Lumbar Stenosis With Neurogenic Claudication COMPARISON: Prior x-ray of the lumbar spine dated 04/22/2023 TECHNIQUE: Multiplanar, multisequential MRI images of lumbar spine were obtained without contrast. FINDINGS: For dictation purposes, the lowest complete disc space in the lumbar spine considered as L5-S1. There is normal physiologic lumbar lordosis. The vertebral height is preserved. There is signal abnormality on T1 and T2-weighted images in the vertebral bodies of visualized spine that may suggest bone marrow reconversion in appropriate clinical setting. Bilateral renal lesions with T2 prolongation not fully characterized by this study and statistically may suggest simple renal cyst. Significant colonic diverticulosis is noted. The conus medullaris is at the level of L1. No signal abnormality within the visualized spinal cord is noted. There is fusion of the T12-L1. Mild bilateral neuroforaminal narrowing and no canal stenosis at this level is noted. At the level of L1-L2, there are disc bulge with moderate bilateral neuroforaminal narrowing and no canal stenosis. At the level of L2-L3, there are disc bulge with moderate left neuroforaminal narrowing and mild canal stenosis. At the level of L3-4, there are disc bulge with moderate to severe bilateral neuroforaminal narrowing and moderate to severe canal stenosis. At the level of L4-5, there are grade 1 and anterolisthesis uncovering disc with mild bilateral neuroforaminal narrowing and severe canal stenosis. At the level of L5-S1, there are disc bulge with moderate bilateral neuroforaminal narrowing and no canal stenosis. The paraspinal muscles show severe atrophy at the level of L4-L5 and L5-S1. MR/MR lumbar spine wo con IMPRESSION: Moderate degenerative changes of lumbar spine in particular at L3-L4 and L4-L5. Electronically authenticated by: WILIAN SARGENT Date: 07/01/2023 11:06
== END 2023-07-01 09:26 | disposition home or self-care (01) ==
LOC: MRI 09:29
PROVIDERS: PCP Family Medicine; Visit Provider Nurse Practitioner
DX: M48.062 Spinal stenosis, lumbar region with neurogenic claudication (principal); M51.36 Other intervertebral disc degeneration, lumbar region
CPT/HCPCS: 72148

== ENCOUNTER 2023-07-12 13:09 | Outpatient (OUT) | payer MEDICARE, OTHER, SELFPAY ==
--- NOTE | 2023-07-12 14:31 | P.CN_ITS ---
Consult Note: HPI Data of Consult Patient: known to practice within the last 3 years Consult date: 07/12/23 Requesting Physician: Tony Holguin MD Primary Care Provider: FRANKI CHAVES Consult Narrative Reason for consult: Low back, lower extremity pain Narrative: 83yof who presents for assessment. continues to have worsening pain from back to bilateral lower extremities. mri reviewed, which is significant for multilevel degeneration and multiple levels of stenosis, worst at l3-4 and l4-5. she continues to engage in provider directed home exercise, which she has attempted for >6 weeks with minimal benefit. utilizes gabapentin. denies adverse med side effects. cc:: CC: Tony Holguin MD Review of Systems ROS Status of ROS 10 or more systems reviewed and unremark able except as noted in history and below PFSH PFSH Medical History Rheumatoid arthritis ?M06.9 - Rheumatoid arthritis, unspecified (ICD-10) H/O malignant neoplasm of breast ?Z85.3 - Personal history of malignant neoplasm of breast (ICD-10) Kidney stone ?N20.0 - Calculus of kidney (ICD-10) Smoker ?F17.200 - Nicotine dependence, unspecified, uncomplicated (ICD-10) Surgical History Status post total shoulder arthroplasty ?Z96.619 - Presence of unspecified artificial shoulder joint (ICD-10) H/O foot surgery ?Z98.890 - Other specified postprocedural states (ICD-10) H/O hand surgery ?Z98.890 - Other specified postprocedural states (ICD-10) S/P total knee arthroplasty ?Z96.659 - Presence of unspecified artificial knee joint (ICD-10) S/P total hip arthroplasty ?Z96.649 - Presence of unspecified artificial hip joint (ICD-10) H/O thumb surgery ?Z98.890 - Other specified postprocedural states (ICD-10) Hx of tonsillectomy ?Z90.89 - Acquired absence of other organs (ICD-10) Family History Other Lumbago Meds Home Medications and Allergies Home Medications ?Medication ?Instructions ?Recorded ?Confirmed ?Type prednisone 5 mg tablet 20 mg PO DAILY 02/09/23 05/24/23 History gabapentin 100 mg capsule 100 mg PO TID 06/23/23 06/23/23 History Allergies Allergy/AdvReac Type Severity Reaction Status Date / Time No Known Drug Allergies Allergy Verified 05/24/23 11:14 Exam Narrative Exam Narrative: Psych-alert and oriented x 3. Attentive and appropriate, constitutionally normal, displays normal mood and affect per situation. There are no obvious deficits in memory, reasoning, or intellect.? Skin-no obvious rashes, bruising, erythema noted to the patient's area of pain.? Extremities- extremities are warm with minimal edema and palpable pulses. Lumbar-tenderness to palpation noted in the lumbar spine and paraspinal musculature. Pain is not elicited with flexion, extension, and lateral rotation of the lumbar spine. Range of motion is not diminished with these motions. Facet loading maneuvers are negative.? Strength-noted to be unremarkable with the exception of decreased strength rated at 4 out of 5 in bilateral quadriceps femoris, anterior tibialis. Sensory-no notable sensory deficits in the bilateral lower extremities to touch or pinprick in all dermatomal distributions with the exception to decreased sensation to the bilateral L3, 4, 5 dermatomal distribution Coordination remains intact.? Gait remains non-antalgic. Assessment and Plan Assessment and Plan (1) Lumbar stenosis with neurogenic claudication: Plan 83yof who presents for assessment. failed conservative measures, as noted. imaging reviewed, as noted. given symptoms and imaging, prudent to attempt bilateral l4-5 tfesi under fluoroscopic guidance. she may even benefit from bilateral l3-4 tfesi under fluoroscopic guidance. she is in agreement. meds reviewed, no changes. follow up after procedure.
== END 2023-07-12 13:10 | disposition home or self-care (01) ==
PROVIDERS: PCP Family Medicine; Visit Provider Anesthesiology
DX: M48.062 Spinal stenosis, lumbar region with neurogenic claudication (principal)
CPT/HCPCS: G0463

== ENCOUNTER 2023-07-26 09:28 | Day surgery (SDC) | payer MEDICARE, OTHER, SELFPAY ==
[2023-07-26 09:50] VITALS: BP 121/75; PULSE 97; TEMP 36.4; O2SAT 97
[2023-07-26 10:34] VITALS: BP 131/78; PULSE 85; O2SAT 97
[2023-07-26] MEDS: 0.9 % SODIUM CHLORIDE 10 ML SYRINGE - SALINE FLUSH INJ (10:34)
[2023-07-26] MEDS: BUPIVACAINE HCL 0.25% PF 25 MG/10 ML VIAL INJ (10:34)
[2023-07-26] MEDS: TRIAMCINOLONE ACETONIDE 40 MG/ML VIAL INJ (10:34)
[2023-07-26] MEDS: IOHEXOL 240 MG/ML - 10 ML VIAL INJ (10:34)
[2023-07-26] MEDS: LIDOCAINE HCL 2% PF 100 MG/5 ML VIAL INJ (10:37)
--- NOTE | 2023-07-26 10:38 | W.PM.PROCNOT ---
Date of procedure: 07/26/23 Pre-op diagnosis: Lumbar stenosis with neurogenic claudication Post-op diagnosis: same as pre-op Procedure: Procedure: Bilateral L4-5 transforaminal epidural steroid injection Medications: Bupivacaine 0.25% 2cc, lidocaine 2% 1cc, kenalog 80mg The patient was seen and examined in the preoperative holding area.? Informed consent was obtained and placed on the chart.? Patient was brought to the medical procedure unit and placed in the prone position where a timeout was completed verifying the correct patient, procedure site, position, and planned special equipment using sterile aseptic technique.? Under direct fluoroscopic visualization a 25-gauge Quincke tipped spinal needle was advanced at level left L4-5 to the designated neural foramen where contrast dye was injected to show adequate spread.? There was no evidence of vascular or adverse uptake.? Epidural spread was appreciated.? The above-mentioned injectate was then placed in a 1.5 mL aliquot preceded by negative aspiration.? The needle was removed. The same procedure, at the same level, was completed on the opposite side. ? Patient was taken to the postprocedural recovery area and monitored for an appropriate length of time before found suitable for discharge in the accompaniment of a responsible adult. Anesthesia: Local Surgeon: Tony Holguin Pathology: none sent Condition: stable Disposition: no change
[2023-07-26 10:39] VITALS: BP 133/62; PULSE 83; O2SAT 97
== END 2023-07-26 10:45 | disposition home or self-care (01) ==
PROVIDERS: PCP Family Medicine; Visit Provider Anesthesiology
DX: M48.062 Spinal stenosis, lumbar region with neurogenic claudication (principal)
CPT/HCPCS: 64483; Q9966

== ENCOUNTER 2023-08-09 10:46 | Day surgery (SDC) | payer MEDICARE, OTHER, SELFPAY ==
[2023-08-09 11:07] VITALS: BP 119/78; PULSE 109; TEMP 36.9; O2SAT 96
[2023-08-09] MEDS: BUPIVACAINE HCL 0.25% PF 25 MG/10 ML VIAL INJ (11:49)
[2023-08-09] MEDS: 0.9 % SODIUM CHLORIDE 10 ML SYRINGE - SALINE FLUSH INJ (11:49)
[2023-08-09] MEDS: DEXAMETHASONE SOD PHOS 10 MG/ML VIAL INJ (11:49)
[2023-08-09] MEDS: LIDOCAINE HCL 2% PF 100 MG/5 ML VIAL INJ (11:50)
[2023-08-09] MEDS: IOHEXOL 240 MG/ML - 10 ML VIAL INJ (11:50)
[2023-08-09 11:51] VITALS: BP 137/65; BP 143/71; PULSE 107; PULSE 109; O2SAT 94; O2SAT 95
--- NOTE | 2023-08-09 11:53 | W.PM.PROCNOT ---
Date of procedure: 08/09/23 Pre-op diagnosis: Lumbar stenosis with neurogenic claudication Post-op diagnosis: same as pre-op Procedure: Procedure: Bilateral L3-4 transforaminal epidural steroid injection Medications: Bupivacaine 0.25% 2cc, lidocaine 2% 1cc, dexamethasone 10mg The patient was seen and examined in the preoperative holding area.? Informed consent was obtained and placed on the chart.? Patient was brought to the medical procedure unit and placed in the prone position where a timeout was completed verifying the correct patient, procedure site, position, and planned special equipment using sterile aseptic technique.? Under direct fluoroscopic visualization a 25-gauge Quincke tipped spinal needle was advanced at level left L3-4 to the designated neural foramen where contrast dye was injected to show adequate spread.? There was no evidence of vascular or adverse uptake.? Epidural spread was appreciated.? The above-mentioned injectate was then placed in a 1.5 mL aliquot preceded by negative aspiration.? The needle was removed. The same procedure, at the same level, was completed on the opposite side. ? Patient was taken to the postprocedural recovery area and monitored for an appropriate length of time before found suitable for discharge in the accompaniment of a responsible adult. Anesthesia: Local Surgeon: Tony Holguin Pathology: none sent Condition: stable Disposition: no change
== END 2023-08-09 11:58 | disposition home or self-care (01) ==
PROVIDERS: PCP Family Medicine; Visit Provider Anesthesiology
DX: M48.062 Spinal stenosis, lumbar region with neurogenic claudication (principal)
CPT/HCPCS: 64483; J1100; Q9966

== ENCOUNTER 2023-08-19 09:34 | Outpatient (OUT) | payer MEDICARE, OTHER, SELFPAY ==
--- OUTSIDE RECORDS SUMMARY | 2023-08-19 09:56 | XMS_ITS | CCD ---
Author Organization [facility] Care Team Providers Care Apple Thinner Name Role Phone , JOSE LUIS Haley Unavailable Unavailable SELF, SELF Unavailable Unavailable EDUARDO ROSE Unavailable Unavailable LIZAMA, JOSE LUIS Y Unavailable Unavailable LIZAMA, JOSE LUIS Y Unavailable Unavailable EDUARDO ROSE P Unavailable Unavailable ANKUR FRANCE Unavailable Unavailable ANKUR FRANCE Unavailable Unavailable EDUARDO ROSE Unavailable Unavailable EDUARDO ROSE Unavailable Unavailable Missy Calvolin Unavailable SABINA ., DR SARIKA Osullivan Attending Unavailable MUHAMMAD ., DR SARIKA Osullivan Admitting Unavailable MUHAMMAD ., DR SARIKA Osullivan Consulting Unavailable MISC, DR GARVEY Primary Care Unavailable MISC, DR GARVEY Consulting Unavailable ZIEBER, DR IHSAN Lane Consulting Unavailable ESTELA CHUN Consulting Unavailable JORY MCMILLAN Consulting Unavailable CAMILO ARNOLD Consulting Unavailable SCHJELANI VILLANUEVA Consulting Unavailable ALVINO BENITEZ Consulting Unavailable DARAMOLMARIA ELENA Kim Consulting Unavailable SISTER, WALI Consulting Unavailable Gennaro Cheng Attending Unavailable Gennaro Cheng Admitting Unavailable Umesh, Yolanda E Primary Care Unavailable Furlong Otis IBANEZ Primary Care Provider OTIS CHAVES Referring Unavailable OTIS CHAVES Primary Care Unavailable OTIS CHAVES Attending Unavailable OTIS CHAVES Referring Unavailable FURLOASTER, OTIS Jett Primary Care Unavailable FUROTIS GREGORY Attending Unavailable ANASTACIO, OTIS Jett Referring Unavailable FURLONG, OTIS Jett Primary Care Unavailable VERONICA CHAHAL Attending Unavailable OTIS CHAVES Referring Unavailable OTIS CHAVES Primary Care Unavailable LISANDROLOOTIS RODARTE Referring Unavailable FURLONG, OTIS Jett Primary Care Unavailable FURLONG, OTIS G Attending Unavailable OTIS CHAVES Referring Unavailable OTIS CHAVES Primary Care Unavailable Gieditis , Andmare Rodríguez Attending Unavailable Giedraitis , Andmare Rodríguez Attending Unavailable Giedraitis , Andmare Rodríguez Attending Unavailable Giedraitis , Andmare Rodríguez Attending Unavailable Giedraitis , Andmare Rodríguez Attending Unavailable Giedraitis , Andmare Rodríguez Attending Unavailable Allergies Allergy Classification Reported Allergen(s) Allergy Type Date of Onset Reaction(s) Facility (1 source) 17759,00; Translations: [06031,00] Propensity to adverse reactions (disorder) 9 [facility] (7 sources) Adhesive agent; Translations: [ADHESIVE] Propensity to adverse reactions to drug 3 Rash [facility] [employer] (7 sources) Fludrocortisone ; Translations: [FLUDROCORTISON E] Drug Allergy 2 Other (See Comments) [facility] (7 sources) Other; Translations: [OTHER] Propensity to adverse reactions 6 [facility] Existence Before [facility] Medications Current Medications Medication Drug Class(es) [...] 50 mg capsule Indications: PMR (polymyalgia rheumatica) ([facility]) Take 1 capsule (50 mg total) by [...] disease (6 sources) Atherosclerotic heart disease of [place] coronary artery without angina pectoris; Translations: [Coronary atherosclerosis] Onset: 01-13-2012 11-28-2021 Chronic Diabetes mellitus without complication (3 sources) Hyperglycemia; Translations: [Hyperglycemia, unspecified] Onset: 05-24-2023 05-24-2023 Episodic Genitourinary symptoms and ill-defined conditions (10 sources) Mixed urinary incontinence; Translations: [Mixed incontinence] Onset: 11-28-2021 11-28-2021 Chronic Genitourinary symptoms and ill-defined conditions (7 sources) Urgent desire to urinate; Translations: [Urgency of urination] Onset: 11-28-2021 11-28-2021 Episodic Osteoarthritis (13 sources) Osteoarthritis of right knee joint; Translations: [Unilateral primary osteoarthritis, right knee] Onset: 04-02-2023 Chronic Other aftercare (1 source) Other long-term (current) drug therapy; Translations: [OTH LONG-TERM CURRENT DRUG THERAPY] Onset: 05-28-2022 Episodic Other [...] 11-28-2021 11-28-2021 Chronic Other non-traumatic joint disorders (2 sources) Hip pain; Translations: [Pain in right hip] 04-02-2023 Episodic Other nutritional; endocrine; and metabolic [...] [CONTACT W/AND (SUSP) EXPOS COVID-19] Onset: 05-28-2022 Unclassified (1 source) medicare annual wellness Onset: 06-24-2023 Past or Other Problems Problem Classification Problem [...] hypertension] Onset: 11-28-2021 Resolved: 05-24-2023 11-28-2021 Chronic Mood disorders (16 sources) Mood disorder; Translations: [Unspecified mood [affective] disorder] Onset: 12-21-2007 Resolved: 06-26-2022 06-26-2022 Chronic Mood disorders (5 sources) Mood disorders Onset: 12-23-2022 Resolved: 06-24-2023 12-23-2022 Open wounds of extremities (5 sources) Open wound of left lower leg; Translations: [Unspecified open wound, left lower leg, initial encounter] Onset: 11-27-2021 11-27-2021 Episodic Other aftercare (1 source) half-way (current) use of aspirin; Translations: [LONG-TERM (CURRENT) USE OF ASPIRIN] Onset: 11-06-2016 Episodic [...] Onset: 11-28-2021 Resolved: 06-26-2022 01-02-2022 Episodic Other non-traumatic joint disorders (4 sources) [...] Demetrio Huitron on 05-25-2023 Appearance (U) cloudy [facility] External Poct Urine Bilirubin Moderate [facility] External Poct Urine Blood Negative [facility] External Poct Urine Color orange [facility] External Poct Urine Glucose Negative [facility] External Poct Urine Ketones Trace [facility] External Poct Urine Leukocyte Esterase Negative [facility] External Poct Urine Nitrite Negative [facility] External Poct Urine Ph 5.5 [facility] External Poct Urine Protein Trace [facility] External Poct Urine Specific [place] 1.030 [facility] External Poct Urine Urobilinogen 0.2 [facility] COMPREHENSIVE METABOLIC PANE Iam 05-24-2023 Albumin [Mass/Vol] 3.6 g/dL Normal 3.2-5.3 [facility] Comment on above: Performed By: #### CMP, 3016-3 #### [facility] ([id number]) [address] [place] [address], [address] [place] [address] ALP [Catalytic activity/Vol] 103 U/L Normal 39-130 [facility] Comment on above: Performed By: #### KRISTY, 6-3 #### [facility] ([id number]) [address], [address] [place] [address] ALT [Catalytic activity/Vol] 10 U/L Normal 0-31 [facility] Comment on above: Performed By: #### CMP, 6-3 #### [facility] ([id number]) [address], [address] [place] [address] Anion gap [Moles/Vol] 9 mmol/L Normal 5-15 [facility] Comment on above: Performed By: #### KRISTY, 6-3 #### [facility] ([id number]) [address], [address] [place] [address] AST [Catalytic activity/Vol] 16 U/L Normal 0-41 [facility] Comment on above: Performed By: #### CMP, 6-3 #### [facility] ([id number]) [address], [address] [place] [address] Bilirubin [Mass/Vol] 0.4 mg/dL Normal 0.3-1.2 [facility] Comment on above: Performed By: #### CMP, 6-3 #### [facility] ([id number]) [address], [address] [place] [address] Calcium [Mass/Vol] 9.5 mg/dL Normal 8.5-10.5 [facility] Comment on above: Performed By: #### CMP, 6-3 #### [facility] ([id number]) [address], [address] [place] [address] Chloride [Moles/Vol] 105 mmol/L Normal 98-109 [facility] Comment on above: Performed By: #### CMP, 6-3 #### [facility] ([id number]) [address], [address] [place] [address] CO2 [Moles/Vol] 31 mmol/L Normal 22-32 [facility] Comment on above: Performed By: #### KRISTY, 6-3 #### [facility] ([id number]) [address], [address] [place] [address] Creatinine [Mass/Vol] 0.99 mg/dL Normal 0.40-1.00 [facility] Comment on above: Result Comment: METHOD TRACEABLE TO IDMS STANDARD Performed By: #### C MELO, 6-3 #### [facility] ([id number]) [address], [facility] [address] [place] [address] GFR/1.73 sq M.predicted among non-blacks MDRD (S/P/Bld) [Vol rate/Area] 56 mL/min/{1.73_m2} Low >59 [facility] Comment on above: Result Comment: Reported eGFR is based on the CKD-EPI 2020 equation that does not use a race coefficient. Performed By: #### C MELO, 3015-3 #### [facility] ([id number]) [address], [address] [place] [address] Glucose [Mass/Vol] 103 mg/dL High 65-99 [facility] Comment on above: Performed By: #### KRISTY, 3015-3 #### [facility] ([id number]) [address] [address] [place] [address] Potassium [Moles/Vol] 3.9 mmol/L Normal 3.5-5.0 [facility] Comment on above: Performed By: #### KRISTY, 3015-3 #### [facility] ([id number]) [address], [address] [place] [address] Protein [Mass/Vol] 7.1 g/dL Normal 6.0-8.0 [facility] Comment on above: Performed By: #### KRISTY, 3015-3 #### [facility] ([id number]) [address], [address] [place] [address] Sodium [Moles/Vol] 145 mmol/L Normal 134-146 [facility] Comment on above: Performed By: #### CMP, 3016-3 #### [facility] ([id number]) [address], [address] [place] [address] Urea nitrogen [Mass/Vol] 18 mg/dL Normal 5-27 [facility] Comment on above: Performed By: #### KRISTY, 3016-3 #### [facility] ([id number]) [address], [address] [place] [address] Comprehensive metabolic pane iam 05-24-2023 Albumin [Mass/Vol] 3.6 g/dL 3.2 - 5.3 g/dL [facility] ALP [Catalytic activity/Vol] 103 U/L 39 - 130 U/L [facility] ALT No additional P-5'-P [Catalytic activity/Vol] 10 U/L 0 - 31 U/L [facility] Anion gap [Moles/Vol] 9 mmol/L 5 - 15 mmol/L [facility] AST [Catalytic activity/Vol] 16 U/L 0 - 41 U/L [facility] Bilirubin [Mass/Vol] 0.4 mg/dL 0.3 - 1.2 mg/dL [facility] Calcium [Mass/Vol] 9.5 mg/dL 8.5 - 10.5 mg/dL [facility] Chloride [Moles/Vol] 105 mmol/L 98 - 109 mmol/L [facility] CO2 [Moles/Vol] 31 mmol/L 22 - 32 mmol/L [facility] Creatinine [Mass/Vol] 0.99 mg/dL 0.40 - 1.00 mg/dL [facility] Comment on above: METHOD TRACEABLE TO IDWI STANDARD eGFR (CKD-EPI)non-rac e dependent 56 Low - PINF [facility] Comment on above: Reported eGFR is based on the CKD-EPI 2020 equation that does not use a race coefficient. Glucose [Mass/Vol] 103 mg/dL High 65 - 99 mg/dL [facility] Interpretation and review of laboratory results Abnormal [facility] Potassium [Moles/Vol] 3.9 mmol/L 3.5 - 5.0 mmol/L [facility] Protein [Mass/Vol] 7.1 g/dL 6.0 - 8.0 g/dL [facility] Sodium [Moles/Vol] 145 mmol/L 134 - 146 mmol/L [facility] Urea nitrogen [Mass/Vol] 18 mg/dL 5 - 27 mg/dL [facility] HGB A1C (GLYCO-HGB)on 2023 Glucose [Mass/Vol] 126 mg/dL Normal [facility] Comment on above: Performed By: #### KRISTY, 3016-3 #### [facility] ([id number]) [address], [address] [place] [address] HbA1c (Bld) [Mass fraction] 6.0 % High 4.4-5.6 [facility] Comment on above: Result Comment: NOTE ADA Guidelines Result HgbA1c Normal : less than 5.7 % Prediabetes : 5.7 % to 6.4 % Diabetes : > 6.4 % Use with caution in patients with abnormal hemoglobin variants as the half-life of red blood cells and in vivo glycation rates are affected. Performed By: #### C MELO, 3016-3 #### [facility] ([id number]) [address], [address] [place] [address] TSHon 05-24-2023 TSH Qn 2.13 m[IU]/L [facility] TSH Qnon 05-24-2023 [facility] TSH 2.13 uIU/mL Normal 0.49-4.67 [facility] Comment on above: Performed By: #### KRISTY, 3016-3 #### [facility] ([id number]) [address], [address] [place] [address] TAO Antinuclear Antibodieson 09-07-2022 Antinuclear Abs, IFA Positive Critically abnormal . [facility] Comment on above: Result Comment: Negative <1:80 Borderline 1:80 Positive >1:80 Performed By: #### T 4F, TSH3, CRP, CMP, ESR, CBC #### [facility] [address] Homogeneous Pattern 1:160 High . [facility] Comment on above: Result Comment: ICAP nomenclature: [id number] Performed By: #### T 4F, TSH3, CRP, CMP, ESR, CBC #### [facility] [address] Note 1 Normal . [facility] Comment on above: Result Comment: For more [...] titers Nucleosomes, Histones Drug-induced SLE Speckled Sm, BLOOD BANK CALENDAR CONTROL CLERK, SCL-70, SLE,MCTD,PSS (diffuse form), SS-A/SS-B Sjogrens Nucleolar SCL-70, PM-1/SCL High titers Scleroderma, PM/DM Centromere Centromere PSS (limited form) w/Crest syndrome variable Nuclear Dot [id number]-[id number] Primary Biliary Cirrhosis Nuclear GP210, Primary Biliary Cirrhosis Membrane vickey A,B,C Performed at: [facility] [id number] Business Records Manager: Naldo Valdez PhD, Phone: [phone] PERFORMED BY: [place] [address] PATHOLOGIST MOLASSES COLORING OPERATOR JORGE LUIS RUELAS M.D. Performed By: #### T 4F, TSH3, CRP, CMP, ESR, CBC #### [facility] [address] [place] [address] [place] C-Reactive Proteinon 023 C-Reactive Protein 0.8 mg/dL High 0.0-0.5 [facility] Comment on above: Performed By: #### T4F, TSH3, CRP, CMP, ESR, CBC #### [address] Complete Blood Count Auto Di ffon 09-07-2022 Basophils (Bld) [#/Vol] 0.1 10*3/uL Normal 0.0-0.2 [facility] Comment on above: Performed By: #### T4F, TSH3, CRP, CMP, ESR, CBC #### [address] Basophils/100 WBC (Bld) 1.0 % Normal . [facility] Comment on above: Performed By: #### T4F, TSH3, CRP, CMP, ESR, CBC #### [address] Eosinophils (Bld) [#/Vol] 0.1 10*3/uL Normal 0.0-0.45 [facility] Comment on above: Performed By: #### T4F, TSH3, CRP, CMP, ESR, CBC #### [address] Eosinophils/100 WBC (Bld) 1.0 % Normal . [facility] Comment on above: Performed By: #### T4F, TSH3, CRP, CMP, ESR, CBC #### [address] Erythrocyte distribution width (RBC) [Ratio] 15.0 % Normal 11.9-15.3 [facility] Comment on above: Performed By: #### T4F, TSH3, CRP, CMP, ESR, CBC #### [address] Hematocrit (Bld) [Volume fraction] 36.3 % Normal 34.0-46.4 [facility] Comment on above: Performed By: #### T4F, TSH3, CRP, CMP, ESR, CBC #### [address] Hemoglobin (Bld) [Mass/Vol] 11.8 g/dL Normal 11.8-15.4 [facility] Comment on above: Performed By: #### T4F, TSH3, CRP, CMP, ESR, CBC #### [address] Lymphocytes (Bld) [#/Vol] 1.4 10*3/uL Normal 1.00-4.8 [facility] Comment on above: Performed By: #### T4F, TSH3, CRP, CMP, ESR, CBC #### [address] Lymphocytes/100 WBC (Bld) 20.9 % Normal . [facility] Comment on above: Performed By: #### T4F, TSH3, CRP, CMP, ESR, CBC #### [address] MCH (RBC) [Entitic mass] 28.9 pg Normal 24.7-34.3 [facility] Comment on above: Performed By: #### T4F, TSH3, CRP, CMP, ESR, CBC #### [address] MCV (RBC) [Entitic vol] 88.4 fL Normal 80-100 [facility] Comment on above: Performed By: #### T4F, TSH3, CRP, CMP, ESR, CBC #### [address] Mean Corpuscular HGB Conc 32.7 g/dL Normal 32.0-35.0 [facility] Comment on above: Performed By: #### T4F, TSH3, CRP, CMP, ESR, CBC #### [address] Monocytes (Bld) [#/Vol] 0.6 10*3/uL Normal 0.0-0.8 [facility] Comment on above: Performed By: #### T4F, TSH3, CRP, CMP, ESR, CBC #### [address] Monocytes/100 WBC (Bld) 9.2 % Normal . [facility] Comment on above: Performed By: #### T4F, TSH3, CRP, CMP, ESR, CBC #### [address] Neutrophils (Bld) [#/Vol] 4.4 10*3/uL Normal 1.8-7.7 [facility] Comment on above: Performed By: #### T4F, TSH3, CRP, CMP, ESR, CBC #### [address] Neutrophils/100 WBC (Bld) 67.9 % Normal . [facility] Comment on above: Performed By: #### T4F, TSH3, CRP, CMP, ESR, CBC #### [address] NRBC% 0.1 /100{WBC} Normal 0-0.5 [facility] Comment on above: Performed By: #### T4F, TSH3, CRP, CMP, ESR, CBC #### [address] Platelet mean volume (Bld) [Entitic vol] 8.8 fL Normal 6.3-10.7 [facility] Comment on above: Performed By: #### T4F, TSH3, CRP, CMP, ESR, CBC #### [place] [address] [place] Platelets (Bld) [#/Vol] 272 10*3/uL Normal 150-450 [facility] Comment on above: Performed By: #### T4F, TSH3, CRP, CMP, ESR, CBC #### [place] [address] [place] RBC (Bld) [#/Vol] 4.11 10*6/uL Normal 3.60-5.00 [facility] Comment on above: Performed By: #### T4F, TSH3, CRP, CMP, ESR, CBC #### [place] [address] [place] WBC (Bld) [#/Vol] 6.5 10*3/uL Normal 3.8-11.6 [facility] Comment on above: Performed By: #### T4F, TSH3, CRP, CMP, ESR, CBC #### [address] [place] [address] [place] Comprehensive Metabolic Pane iam 09-07-2022 Albumin [Mass/Vol] 3.7 g/dL Normal 3.5-5.7 [facility] Comment on above: Performed By: #### T4F, TSH3, CRP, CMP, ESR, CBC #### [facility] [address] Albumin/Globulin [Mass ratio] 1.4 {ratio} Normal [facility] Comment on above: Performed By: #### T4F, TSH3, CRP, CMP, ESR, CBC #### [address] ALP [Catalytic activity/Vol] 83 U/L Normal 34-104 [facility] Comment on above: Performed By: #### T4F, TSH3, CRP, CMP, ESR, CBC #### [address] ALT [Catalytic activity/Vol] 9 U/L Normal 7-52 [facility] Comment on above: Performed By: #### T4F, TSH3, CRP, CMP, ESR, CBC #### [address] Anion gap [Moles/Vol] 11.9 mmol/L Normal 6.0-15.0 [facility] Comment on above: Performed By: #### T4F, TSH3, CRP, CMP, ESR, CBC #### [address] AST [Catalytic activity/Vol] 12 U/L Low 13-39 [facility] Comment on above: Performed By: #### T4F, TSH3, CRP, CMP, ESR, CBC #### [address] Bilirubin [Mass/Vol] 0.4 mg/dL Normal 0.3-1.0 [facility] Comment on above: Performed By: #### T4F, TSH3, CRP, CMP, ESR, CBC #### [place] [address] [place] Calcium [Mass/Vol] 9.0 mg/dL Normal 8.6-10.3 [facility] Comment on above: Performed By: #### T4F, TSH3, CRP, CMP, ESR, CBC #### [address] Chloride [Moles/Vol] 105 mmol/L Normal 98-107 [facility] Comment on above: Performed By: #### T4F, TSH3, CRP, CMP, ESR, CBC #### [address] CO2 [Moles/Vol] 30.4 mmol/L Normal 21.0-31.0 [facility] Comment on above: Performed By: #### T4F, TSH3, CRP, CMP, ESR, CBC #### [address] Creatinine [Mass/Vol] 0.92 mg/dL Normal 0.60-1.20 [facility] Comment on above: Performed By: #### T4F, TSH3, CRP, CMP, ESR, CBC #### [place] [address] [place] GFR/1.73 sq M.predicted MDRD (S/P/Bld) [Vol rate/Area] mL/min/{1.73_m2} [facility] Comment on above: Performed By: #### T4F, TSH3, CRP, CMP, ESR, CBC #### [place] [address] [place] Globulin (S) [Mass/Vol] 2.6 g/dL Normal [facility] Comment on above: Performed By: #### T4F, TSH3, CRP, CMP, ESR, CBC #### [place] [address] [place] Glucose [Mass/Vol] 92 mg/dL Normal 70-100 [facility] Comment on above: Result Comment: Random Glucose Reference Range is dependent on time and content of last meal. Glucose of more than 200 mg/dL in a nonstressed, ambulatory subject supports the diagnosis of Diabetes Mellitus. ADA recommended reference range Performed By: #### T 4F, TSH3, CRP, CMP, ESR, CBC #### [address] Potassium [Moles/Vol] 4.3 mmol/L Normal 3.5-5.1 [facility] Comment on above: Performed By: #### T4F, TSH3, CRP, CMP, ESR, CBC #### [address] Protein [Mass/Vol] 6.3 g/dL Low 6.4-8.9 [facility] Comment on above: Performed By: #### T4F, TSH3, CRP, CMP, ESR, CBC #### [address] Sodium [Moles/Vol] 143 mmol/L Normal 136-145 [facility] Comment on above: Performed By: #### T4F, TSH3, CRP, CMP, ESR, CBC #### [address] Urea nitrogen [Mass/Vol] 21 mg/dL Normal 7-25 [facility] Comment on above: Performed By: #### T4F, TSH3, CRP, CMP, ESR, CBC #### [address] Dipstick and Microscopicon 0 09-07-2022 Appearance (U) Cloudy Critically abnormal Clear [facility] Comment on above: Order Comment: Name Collection Type:: Cl marcie-Voided Midstream Performed By: #### S PE, UPE RAND, VITO SERUM, VITO,URINE #### [facility] , #### CUU, ADDONUAPLUS #### [address] Bacteria,Urine 4+ High None Seen [facility] Comment on above: Order Comment: Name Collection Type:: Cl marcie-Voided Midstream Performed By: #### S PE, UPE RAND, VITO SERUM, VITO,URINE #### [facility] , #### CUU, ADDONUAPLUS #### [facility] [address] [place] [address] [place] Bilirubin,Urine Negative Normal Negative [facility] Comment on above: Order Comment: Name Collection Type:: Cl marcie-Voided Midstream Performed By: #### S PE, UPE RAND, VITO SERUM, VITO,URINE #### [facility] , #### CUU, ADDONUAPLUS #### [facility] [address] [place] [address] Color (U) Yellow Normal Yellow [facility] Comment on above: Order Comment: Name Collection Type:: Cl marcie-Voided Midstream Performed By: #### S PE, UPE RAND, VITO SERUM, VITO,URINE #### [facility] , #### CUU, ADDONUAPLUS #### [facility] [address] [place] [address] Glucose Ql (U) Normal Normal Normal [facility] Comment on above: Order Comment: Name Collection Type:: Cl marcie-Voided Midstream Performed By: #### S PE, UPE RAND, VITO SERUM, VITO,URINE #### [facility] , #### CUU, ADDONUAPLUS #### [facility] [address] [place] [address] Hyaline Casts,Urine 0-8 Normal 0-8 [facility] Comment on above: Order Comment: Name Collection Type:: Cl marcie-Voided Midstream Result Comment: PERF ORMED BY: [place] [address] PATHOLOGIST MOLASSES COLORING OPERATOR JORGE LUIS RUELAS M.D. Performed By: #### S PE, UPE RAND, VITO SERUM, VITO,URINE #### [facility] , #### CUU, ADDONUAPLUS #### [facility] [facility] [address] [place] [address] Ketones Ql (U) Trace High Negative [facility] Comment on above: Order Comment: Name Collection Type:: Cl marcie-Voided Midstream Performed By: #### S PE, UPE RAND, VITO SERUM, VITO,URINE #### [facility] , #### CUU, ADDONUAPLUS #### [facility] [address] [place] [address] Leukocyte esterase Test strip Ql (U) 1+ High Negative [facility] Comment on above: Order Comment: Name Collection Type:: Cl marcie-Voided Midstream Performed By: #### S PE, UPE RAND, VITO SERUM, VITO,URINE #### [facility] , #### CUU, ADDONUAPLUS #### [facility] [address] [place] [address] Nitrite,Urine Positive High Negative [facility] Comment on above: Order Comment: Name Collection Type:: Cl marcie-Voided Midstream Performed By: #### S PE, UPE RAND, VITO SERUM, VITO,URINE #### [facility] , #### CUU, ADDONUAPLUS #### [facility] [address] [place] [address] Occult Blood,Urine Negative Normal Negative [facility] Comment on above: Order Comment: Name Collection Type:: Cl marcie-Voided Midstream Performed By: #### S PE, UPE RAND, VITO SERUM, VITO,URINE #### [facility] , #### CUU, ADDONUAPLUS #### [facility] [address] [place] [address] [place] pH (U) 5.5 [pH] Normal 5.0-9.0 [facility] Comment on above: Order Comment: Name Collection Type:: Cl marcie-Voided Midstream Performed By: #### S PE, UPE RAND, VITO SERUM, VITO,URINE #### [facility] , #### CUU, ADDONUAPLUS #### [facility] [address] [place] [address] [place] Protein,Urine Negative Normal Negative [facility] Comment on above: Order Comment: Name Collection Type:: Cl marcie-Voided Midstream Performed By: #### S PE, UPE RAND, VITO SERUM, VITO,URINE #### [facility] , #### CUU, ADDONUAPLUS #### [facility] [address] [place] [address] RBC,Urine 3-4 Normal 0-4 [facility] Comment on above: Order Comment: Name Collection Type:: Cl marcie-Voided Midstream Performed By: #### S PE, UPE RAND, VITO SERUM, VITO,URINE #### [facility] , #### CUU, ADDONUAPLUS #### [address] Specificy [place],Urine 1.027 Normal 1.001-1.03 0 [facility] Comment on above: Order Comment: Name Collection Type:: Cl marcie-Voided Midstream Performed By: #### S PE, UPE RAND, VITO SERUM, VITO,URINE #### [facility] , #### CUU, ADDONUAPLUS #### [facility] [address] [place] [address] Squamous Epithelial Cell,Urine 5-9 High 0-2 [facility] Comment on above: Order Comment: Name Collection Type:: Cl marcie-Voided Midstream Performed By: #### S PE, UPE RAND, VITO SERUM, VITO,URINE #### [facility] , #### CUU, ADDONUAPLUS #### [facility] [address] [place] [address] Urobilinogen,Uri ne Normal Normal Normal [facility] Comment on above: Order Comment: Name Collection Type:: Cl marcie-Voided Midstream Performed By: #### S PE, UPE RAND, VITO SERUM, VITO,URINE #### [facility] , #### CUU, ADDONUAPLUS #### [facility] [address] WBC,Urine 5-9 High 0-4 [facility] Comment on above: Order Comment: Name Collection Type:: Cl marcie-Voided Midstream Performed By: #### S PE, UPE RAND, VITO SERUM, VITO,URINE #### [facility] , #### CUU, ADDONUAPLUS #### [address] Erythrocyte Sedimentation Ra trent 09-07-2022 ESR (Bld) [Velocity] 63 mm/h High 0-29 [facility] Comment on above: Result Comment: PERFORMED BY: [place] [address] PATHOLOGIST [employer]OR[employer] OPERATOR JORGE LUIS RUELAS M.D. Performed By: #### T 4F, TSH3, CRP, CMP, ESR, CBC #### [address] Free T4 (Free Thyroxine)on 0 09-07-2022 Free T4 [Mass/Vol] 0.96 ng/dL Normal 0.61-1.12 [facility] Comment on above: Performed By: #### T4F, TSH3, CRP, CMP, ESR, CBC #### [place] [address] [place] Immunofixation, (VITO), Urine on 09-07-2022 Immunofixation, (VITO), Urine Normal . [facility] Comment on above: Result Comment: No monoclonality detecte d. Performed at: - [facility] [address] [id number] Business Records Manager: Naldo Valdez PhD, Phone: [phone] Performed By: #### T 4F, TSH3, CRP, CMP, ESR, CBC #### [address] Immunofixation,Serumon 09-07 Immunofixation, Serum Normal . [facility] Comment on above: Result Comment: No monoclonality detecte d. Performed By: #### S PE, UPE RAND, VITO SERUM, VITO,URINE #### [facility] , #### CUU, ADDONUAPLUS #### [facility] [address] [place] [address] [place] Immunoglobulin A, Serum 107 mg/dL Normal 64-422 [facility] Comment on above: Performed By: #### SPE, UPE RAND, VITO SE RUM, VITO,URINE #### [facility] , #### CUU, ADDONUAPLUS #### [address] Immunoglobulin G 972 mg/dL Normal 586-1602 [facility] Comment on above: Performed By: #### SPE, UPE RAND, VITO SE RUM, VITO,URINE #### [facility] , #### CUU, ADDONUAPLUS #### [place] [address] [place] Immunoglobulin M, Serum 348 mg/dL High 26-217 [facility] Comment on above: Result Comment: Performed at: [place] [address] Business Records Manager: Naldo Valdez PhD, Phone: [phone] Performed By: #### S PE, UPE RAND, VITO SERUM, VITO,URINE #### [facility] , #### CUU, ADDONUAPLUS #### [place] [address] [place] Protein Electro, Random Urin chester 09-07-2022 Albumin, Urine 15.7 % Normal . [facility] Comment on above: Performed By: #### T4F, TSH3, CRP, CMP, ESR, CBC #### [place] [address] [place] Zszah-2-Hrxectxs , Urine 1.3 % Normal . [facility] Comment on above: Performed By: #### T4F, TSH3, CRP, CMP, ESR, CBC #### [place] [address] [place] Fexzw-6-Amvdnxzf , Urine 17.8 % Normal . [facility] Comment on above: Performed By: #### T4F, TSH3, CRP, CMP, ESR, CBC #### [address] Beta Globulin, Urine 36.1 % Normal . [facility] Comment on above: Performed By: #### T4F, TSH3, CRP, CMP, ESR, CBC #### [address] Gamma Globulin, Urine 29.0 % Normal . [facility] Comment on above: Performed By: #### T4F, TSH3, CRP, CMP, ESR, CBC #### [address] M-Virgil % Not Observed Normal Not Observed [facility] Comment on above: Performed By: #### T4F, TSH3, CRP, CMP, ESR, CBC #### [address] Please Note: Normal . [facility] Comment on above: Result Comment: Protein electrophoresis scan will follow via computer, mail, or assembly and packing supervisor delivery. PERFORMED BY: [place] [address] PATHOLOGIST [employer]OR[employer] OPERATOR JORGE LUIS RUELAS M.D. Performed By: #### T 4F, TSH3, CRP, CMP, ESR, CBC #### [address] Protein (U) [Mass/Vol] 27.7 mg/dL Normal Not Estab. [facility] Comment on above: Performed By: #### T4F, TSH3, CRP, CMP, ESR, CBC #### [address] Protein Electrophoresis, Ser umon 09-07-2022 Albumin [Mass/Vol] 3.3 g/dL Normal 2.9-4.4 [facility] Comment on above: Performed By: #### SPE, UPE RAND, VITO SE RUM, VITO,URINE #### [facility] , #### CUU, ADDONUAPLUS #### [facility] [address] [place] [address] [place] Albumin/Globulin [Mass ratio] 1.1 {ratio} Normal 0.7-1.7 [facility] Comment on above: Performed By: #### SPE, UPE RAND, VITO SE RUM, VITO,URINE #### [facility] , #### CUU, ADDONUAPLUS #### [facility] [address] [place] [address] [place] Tqvqk-7-Hljgsvbr 0.3 g/dL Normal 0.0-0.4 [facility] Comment on above: Performed By: #### SPE, UPE RAND, VITO SE RUM, VITO,URINE #### [facility] , #### CUU, ADDONUAPLUS #### [facility] [address] [place] [address] [place] Mhmnb-8-Zjdccdei 0.9 g/dL Normal 0.4-1.0 [facility] Comment on above: Performed By: #### SPE, UPE RAND, VITO SE RUM, VITO,URINE #### [facility] , #### CUU, ADDONUAPLUS #### [facility] [address] [place] [address] [place] Beta Globulin 0.9 g/dL Normal 0.7-1.3 [facility] Comment on above: Performed By: #### SPE, UPE RAND, VITO SE RUM, VITO,URINE #### [facility] , #### CUU, ADDONUAPLUS #### [facility] [address] [place] [address] [place] Gamma Globulin 1.1 g/dL Normal 0.4-1.8 [facility] Comment on above: Performed By: #### SPE, UPE RAND, VITO SE RUM, VITO,URINE #### [facility] , #### CUU, ADDONUAPLUS #### [facility] [address] [place] [address] Globulin (S) [Mass/Vol] 3.1 g/dL Normal 2.2-3.9 [facility] Comment on above: Performed By: #### SPE, UPE RAND, VITO SE RUM, VITO,URINE #### [facility] , #### CUU, ADDONUAPLUS #### [address] M-[place] Not Observed Normal Not Observed [facility] Comment on above: Performed By: #### SPE, UPE RAND, VITO SE RUM, VITO,URINE #### [facility] , #### CUU, ADDONUAPLUS #### [address] Protein [Mass/Vol] 6.4 g/dL Normal 6.0-8.5 [facility] Comment on above: Performed By: #### SPE, UPE RAND, VITO SE RUM, VITO,URINE #### [facility] , #### CUU, ADDONUAPLUS #### [address] SPE-Note Normal . [facility] Comment on above: Result Comment: Protein electrophoresis scan will follow via computer, mail, or assembly and packing supervisor delivery. Performed at: [facility] [address] [id number] Business Records Manager: Naldo Valdez PhD, Phone: [phone] PERFORMED BY: [place] [address] PATHOLOGIST [employer] COLORING OPERATOR JORGE LUIS RUELAS M.D. Performed By: #### S PE, UPE RAND, VITO SERUM, VITO,URINE #### [facility] , #### CUU, ADDONUAPLUS #### [address] Thyroid Stimulating Hormoneo n 09-07-2022 TSH Qn 1.60 m[IU]/L Normal 0.45-5.33 [facility] Comment on above: Result Comment: PERFORMED BY: [place] [address] PATHOLOGIST [employer] COLORING OPERATOR JORGE LUIS RUELAS M.D. Performed By: #### T 4F, TSH3, CRP, CMP, ESR, CBC #### [facility] [address] [place] [address] [facility] Urine Cultureon 09-07-2022 Bacteria identified Cx Nom (U) ORGANISM: Escherichia coli (O:ESCCOL) [place] Count >100,000 Aerobic DELFIN Charge (NMIC56) SUSCEPTIBILITY [...] RESISTANT TO ALL B-LACTAM DRUGS. PERFORMED BY: [place] [id number] PATHOLOGIST [employer] COLORING OPERATOR JORGE LUIS RUELAS M.D. [facility] Comment on above: Performed By: #### SPE, UPE RAND, VITO SE RUM, VITO,URINE #### [facility] , #### CUU, ADDONUAPLUS #### [facility] [address] CULTURE URINEon 05-28-2022 CULTURE URINE Isolate [...] S F Trimethoprim/Sulfamethoxazole <=20 S F Normal [facility] Comment on above: Performed By: #### UACSIND #### [facility] [address] [place] [address] [address] Megan Caballero ALDOLASEon 05-27-2022 Aldolase 5.8 U/L Normal 3.3-10.3 [facility] Comment on above: Performed By: #### LACT #### [facility] [address] [place] [address] [address] Megan Caballero TAO DIRECTon 05-27-2022 TAO Direct Negative Normal Negative [facility] Comment on above: Performed By: #### LACT #### [facility] [address] [place] [address] [address] Megan Caballero RHEUMATOID FACTORon 05-28-19 RA Latex Turbid. 28.2 IU/mL Critically high <14.0 [facility] Comment on above: Performed By: #### LACT #### [facility] [address] [place] [address] [address] Megan Caballero CBC AUTO DIFFon 05-26-2022 BASO # 0.0 103/ul Normal 0.0-0.1 [facility] Comment on above: Performed By: #### LACT #### [facility] [address] [place] [address] Dr. Megan Caballero Basophils/100 WBC (Bld) 0.1 % Critically low 0.2-2.0 [facility] Comment on above: Performed By: #### LACT #### [facility] [address] [place] [address] Dr. Megan Caballero EO # 0.0 103/ul Normal 0.0-0.7 [facility] Comment on above: Performed By: #### LACT #### [facility] [address] [place] [address] Dr. Megan Caballero Eosinophils/100 WBC (Bld) 0.0 % Critically low 0.9-7.0 [facility] Comment on above: Performed By: #### LACT #### [facility] [address] [place] [address] Dr. Megan Caballero Erythrocyte distribution width (RBC) [Ratio] 13.4 % Normal 11.0-15.0 [facility] Comment on above: Performed By: #### LACT #### [facility] [address] [place] [address] Dr. Megan Caballero Hematocrit (Bld) [Volume fraction] 33.4 % Critically low 36.0-48.0 [facility] Comment on above: Performed By: #### LACT #### [facility] [address] [place] [address] Dr. Megan Caballero Hemoglobin (Bld) [Mass/Vol] 11.0 g/dL Critically low 12.0-16.0 [facility] Comment on above: Performed By: #### LACT #### [facility] [address] [place] [address] Dr. Megan Caballero IG # 0.12 10e3/ul Critically high 0.00-0.03 [facility] Comment on above: Performed By: #### LACT #### [facility] [address] [place] [address] Dr. Megan Caballero IG % 0.9 % Critically high 0.0-0.5 [facility] Comment on above: Performed By: #### LACT #### [facility] [address] [place] [address] Dr. Megan Caballero LYMPH # 0.8 103/ul Critically low 1.2-3.8 [facility] Comment on above: Performed By: #### LACT #### [facility] [address] [place] [address] Dr. Megan Caballero Lymphocytes/100 WBC (Bld) 5.7 % Critically low 20.5-60.0 [facility] Comment on above: Performed By: #### LACT #### [facility] [address] [place] [address] Dr. Megan Caballero MANUAL DIFF REQ NO Normal [facility] Comment on above: Performed By: #### LACT #### [facility] [address] [place] [address] Dr. Megan Caballero MCH (RBC) [Entitic mass] 29.2 pg Normal 26.7-34.0 [facility] Comment on above: Performed By: #### LACT #### [facility] [address] [place] [address] Dr. Megan Caballero MCHC (RBC) [Mass/Vol] 32.9 g/dL Normal 29.9-35.2 [facility] Comment on above: Performed By: #### LACT #### [facility] [address] [place] [address] Dr. Megan Caballero MCV (RBC) [Entitic vol] 88.6 fL Normal 81.0-99.0 [facility] Comment on above: Performed By: #### LACT #### [facility] [address] [place] [address] Dr. Megan Caballero MONO # 1.1 103/ul Critically high 0.3-0.8 [facility] Comment on above: Performed By: #### LACT #### [facility] [address] [place] [address] Dr. Megan Caballero Monocytes/100 WBC (Bld) 7.9 % Normal 1.7-12.0 [facility] Comment on above: Performed By: #### LACT #### [facility] [address] [place] [address] Dr. Megan Caballero NEUT # 11.9 103/ul Critically high 1.4-6.5 [facility] Comment on above: Performed By: #### LACT #### [facility] [address] [place] [address] Dr. Megan Caballero Neutrophils/100 WBC (Bld) 85.4 % Critically high 43.0-75.0 [facility] Comment on above: Performed By: #### LACT #### [facility] [address] [place] [address] Dr. Megan Caballero Platelet mean volume (Bld) [Entitic vol] 10.2 fL Normal 9.5-13.5 [facility] Comment on above: Performed By: #### LACT #### [facility] [address] [place] [address] Dr. Megan Caballero PLT 176 103/ul Normal 150-450 [facility] Comment on above: Performed By: #### LACT #### [facility] [address] [place] [address] Dr. Megan Caballero RBC 3.77 106/ul Critically low 4.20-5.40 [facility] Comment on above: Performed By: #### LACT #### [facility] [address] [place] [address] Dr. Megan Caballero WBC 13.9 103/ul Critically high 4.0-11.0 [facility] Comment on above: Performed By: #### LACT #### [facility] [address] [place] [address] Dr. Megan Caballero CULTURE BLOODon 05-26-2022 Microscopic examination of blood, culture Culture Observations: NO GROWTH AT 5 DAYS. Normal [facility] Comment on above: Performed By: #### UACSIND #### [facility] [address] [place] [address] Dr. Megan Caballero Microscopic examination of blood, culture Culture Observations: NO GROWTH AT 5 DAYS. Normal [facility] Comment on above: Performed By: #### UACSIND #### [facility] [address] [place] [address] Dr. Megan Caballero LACTATE/LACTIC ACIDon 2022 Lactate [Moles/Vol] 1.1 mmol/L Normal 0.4-1.9 [facility] Comment on above: Performed By: #### LACT #### [facility] [address] [place] [address] Dr. Megan Caballero LIVER PROFILEon 05-26-2022 Albumin [Mass/Vol] 2.7 g/dL Critically low 3.4-5.0 [facility] Comment on above: Performed By: #### LACT #### [facility] [address] [place] [address] Dr. Megan Caballero Albumin/Globulin [Mass ratio] 0.6 {ratio} Normal [facility] Comment on above: Performed By: #### LACT #### [facility] [address] [place] [address] Dr. Megan Caballero ALP [Catalytic activity/Vol] 107 U/L Normal 46-116 [facility] Comment on above: Performed By: #### LACT #### [facility] [address] [place] [address] Dr. Megan Caballero ALT [Catalytic activity/Vol] 12 U/L Critically low 14-59 [facility] Comment on above: Performed By: #### LACT #### [facility] [address] [place] [address] Dr. Megan Caballero AST [Catalytic activity/Vol] 16 U/L Normal 15-37 [facility] Comment on above: Performed By: #### LACT #### [facility] [address] [place] [address] Dr. Megan Caballero BILI, CONJUGATED 0.1 mg/dL Normal 0.0-0.2 [facility] Comment on above: Performed By: #### LACT #### [facility] [address] [place] [address] Dr. Megan Caballero Bilirubin [Mass/Vol] 0.6 mg/dL Normal 0.2-1.0 [facility] Comment on above: Performed By: #### LACT #### [facility] [address] [place] [address] Dr. Megan Caballero Globulin (S) [Mass/Vol] 4.2 g/dL Normal [facility] Comment on above: Performed By: #### LACT #### [facility] [address] [place] [address] Dr. Megan Caballero Protein [Mass/Vol] 6.9 g/dL Normal 6.4-8.2 [facility] Comment on above: Performed By: #### LACT #### [facility] [address] [place] [address] Dr. Megan Caballero MAGNESIUMon 05-26-2022 Magnesium [Mass/Vol] 1.9 mg/dL Normal 1.8-2.4 [facility] Comment on above: Performed By: #### MG #### [facility] [address] [place] [address] Dr. Megan Caballero NM BONE SC WH [...] IHSAN PEDROZA Date: 2022-05-26 15:25 Normal [facility] PROF 14(COMP METB)on 023 Albumin [Mass/Vol] 2.4 g/dL Critically low 3.4-5.0 [facility] Comment on above: Performed By: #### LACT #### [facility] [address] [place] [address] Dr. Megan Caballero Albumin/Globulin [Mass ratio] 0.6 {ratio} Normal [facility] Comment on above: Performed By: #### LACT #### [facility] [address] [place] [address] Dr. Megan Caballero ALP [Catalytic activity/Vol] 92 U/L Normal 46-116 [facility] Comment on above: Performed By: #### LACT #### [facility] [address] [place] [address] Dr. Megan Caballero ALT [Catalytic activity/Vol] 10 U/L Critically low 14-59 [facility] Comment on above: Performed By: #### LACT #### [facility] [address] [place] [address] Dr. Megan Caballero Anion gap [Moles/Vol] 10.3 mmol/L Normal [facility] Comment on above: Performed By: #### LACT #### [facility] [address] [place] [address] Dr. Megan Caballero AST [Catalytic activity/Vol] 14 U/L Critically low 15-37 [facility] Comment on above: Performed By: #### LACT #### [facility] [address] [place] [address] Dr. Megan Caballero Bilirubin [Mass/Vol] 0.5 mg/dL Normal 0.2-1.0 [facility] Comment on above: Performed By: #### LACT #### [facility] [address] [place] [address] Dr. Megan Caballero Calcium [Mass/Vol] 8.2 mg/dL Critically low 8.5-10.1 [facility] Comment on above: Performed By: #### LACT #### [facility] [address] [place] [address] Dr. Megan Caballero Chloride [Moles/Vol] 104 mmol/L Normal 98-107 [facility] Comment on above: Performed By: #### LACT #### [facility] [address] [place] [address] Dr. Megan Caballero CO2 [Moles/Vol] 28.2 mmol/L Normal 21.0-32.0 [facility] Comment on above: Performed By: #### LACT #### [facility] [address] [place] [address] Dr. Megan Caballero Creatinine [Mass/Vol] 1.05 mg/dL Critically high 0.55-1.02 [facility] Comment on above: Performed By: #### LACT #### [facility] [address] [place] [address] [address] Megan Caballero EGFR-AF [facility] >60 Normal >=60 [facility] Comment on above: Performed By: #### LACT #### [facility] [address] [place] [address] [address] Megan Caballero EGFR-NON AF [facility] 50 mL/min/1.73m2 Critically low >=60 [facility] Comment on above: Performed By: #### LACT #### [facility] Laboratory [address] [address] [address] Megan Caballero Globulin (S) [Mass/Vol] 3.7 g/dL Normal [facility] Comment on above: Performed By: #### LACT #### [facility] [address] [address] [address] Megan Caballero Glucose [Mass/Vol] 116 mg/dL Critically high 74-106 [facility] Comment on above: Performed By: #### LACT #### [facility] [address] [address] [address] Megan Caballero Potassium [Moles/Vol] 3.5 mmol/L Normal 3.5-5.1 [facility] Comment on above: Performed By: #### LACT #### [facility] [address] [address] [address] Megan Caballero Protein [Mass/Vol] 6.1 g/dL Critically low 6.4-8.2 [facility] Comment on above: Performed By: #### LACT #### [facility] [address] [address] [address] Megan Caballero Sodium [Moles/Vol] 139 mmol/L Normal 136-145 [facility] Comment on above: Performed By: #### LACT #### [facility] [address] [address] [address] Megan Caballero Urea nitrogen [Mass/Vol] 25.0 mg/dL Critically high 7.0-18.0 [facility] Comment on above: Performed By: #### LACT #### [facility] [address] [place] [address] Dr. Megan Caballero Urea nitrogen/Creatin ine [Mass ratio] 23.8 mg/mg Normal [facility] Comment on above: Performed By: #### LACT #### [facility] [address] [place] [address] Dr. Megan Caballero PTTon 05-26-2022 aPTT Coag (Bld) [Time] 31.1 s Normal 22.3-36.2 [facility] Comment on above: Performed By: #### PTT #### [facility] [address] [place] [address] Dr. Megan Caballero UA RANDOMon 05-26-2022 Bilirubin Ql (U) Negative Normal NEGATIVE [facility] Comment on above: Performed By: #### UA #### [facility] [address] [place] [address] Dr. Megan Caballero Clarity (U) CLEAR Normal CLEAR [facility] Comment on above: Performed By: #### UA #### [facility] [address] [place] [address] Dr. Megan Caballero Color (U) LT. YELLOW Normal YELLOW [facility] Comment on above: Performed By: #### UA #### [facility] [address] [place] [address] Dr. Megan Caballero Glucose Ql (U) Negative Normal NEGATIVE [facility] Comment on above: Performed By: #### UA #### [facility] [address] [place] [address] Dr. Megan Caballero Hemoglobin Ql (U) MODERATE Abnormal NEGATIVE [facility] Comment on above: Performed By: #### UA #### [facility] [address] [place] [address] Dr. Megan Caballero Ketones Ql (U) Negative Normal NEGATIVE [facility] Comment on above: Performed By: #### UA #### [facility] [address] [place] [address] Dr. Megan Caballero LEUKOCYTES TRACE Abnormal NEGATIVE [facility] Comment on above: Performed By: #### UA #### [facility] [address] [place] [address] Dr. Megan Caballero Nitrite Ql (U) Negative Normal NEGATIVE [facility] Comment on above: Performed By: #### UA #### [facility] [address] [place] [address] Dr. Megan Caballero pH (U) 6.0 [pH] Normal 5-9 [facility] Comment on above: Performed By: #### UA #### [facility] [address] [place] [address] Dr. Megan Caballero SPEC GRAVITY 1.015 Normal 1.005-<=1. 025 [facility] Comment on above: Performed By: #### UA #### [facility] [address] [place] [address] Dr. Megan Caballero UA PROTEIN 30 mg/dl Abnormal NEGATIVE/ TRACE [facility] Comment on above: Performed By: #### UA #### [facility] [address] [place] [address] Dr. Megan Caballero Urobilinogen Qn (U) 0.2 {Renu'U}/dL Normal 0.2 - 1.0 [facility] Comment on above: Performed By: #### UA #### [facility] [address] [place] [address] Dr. Megan Caballero XR CHEST 1 Von [...] ALVINO BENITEZ Date: 2022-05-26 04:41 Normal [facility] CPKon 05-25-2022 CK [Catalytic activity/Vol] 73 U/L Normal 26-192 [facility] Comment on above: Performed By: #### UACSIND #### [facility] [address] [place] [address] Dr. Megan Caballero CRPon 05-25-2022 CRP 11.9 mg/dL Critically high <=1.0 [facility] Comment on above: Performed By: #### CRP, URIC #### [facility] [address] [place] [address] Dr. Megan Caballero [facility] SARS-CoV-2 (COVID-19) RNA YU+probe Ql (Unsp spec) Not detected Normal NOT DETECTED [facility] Comment on above: Result Comment: When [...] for this test is supported by the [employer] Operator of Health and Human Service's declaration that [...] used). Performed By: #### U ACSIND #### [facility] [address] [place] [address] Dr. Megan Caballero SED RATE WESTERGRENon 2022 SED RATE 55 mm/hr Critically high <=30 [facility] Comment on above: Performed By: #### SEDR #### [facility] [address] [place] [address] Dr. Megan Caballero TSHon 05-25-2022 TSH 0.533 uIU/mL Normal 0.358-3.74 0 [facility] Comment on above: Performed By: #### TSH #### [facility] [address] [place] [address] Dr. Megan Caballero UA (CLEAN/CATCH) FLYER MAKER/MICRO I F IND.on 05-25-2022 Bilirubin Ql (U) Negative Normal NEGATIVE [facility] Comment on above: Performed By: #### UACSIND #### [facility] [address] [place] [address] Dr. Megan Caballero Clarity (U) CLEAR Normal CLEAR [facility] Comment on above: Performed By: #### UACSIND #### [facility] [address] [place] [address] Dr. Megan Caballero Color (U) LT. YELLOW Normal YELLOW [facility] Comment on above: Performed By: #### UACSIND #### [facility] [address] [place] [address] Dr. Megan Caballero Glucose Ql (U) Negative Normal NEGATIVE [facility] Comment on above: Performed By: #### UACSIND #### [facility] [address] [place] [address] Dr. Megan Caballero Hemoglobin Ql (U) TRACE-LYSED Abnormal NEGATIVE [facility] Comment on above: Performed By: #### UACSIND #### [facility] [address] [place] [address] Dr. Megan Caballero Ketones Ql (U) Negative Normal NEGATIVE [facility] Comment on above: Performed By: #### UACSIND #### [facility] [address] [place] [address] Dr. Megan Caballero LEUKOCYTES Negative Normal NEGATIVE [facility] Comment on above: Performed By: #### UACSIND #### [facility] [address] [place] [address] Dr. Megan Caballero Nitrite Ql (U) Negative Normal NEGATIVE [facility] Comment on above: Performed By: #### UACSIND #### [facility] [address] [place] [address] Dr. Megan Caballero pH (U) 6.5 [pH] Normal 5-9 [facility] Comment on above: Performed By: #### UACSIND #### [facility] [address] [place] [address] Dr. Megan Caballero SPEC GRAVITY 1.020 Normal 1.005-<=1. 025 [facility] Comment on above: Performed By: #### UACSIND #### [facility] [address] [place] [address] Dr. Megan Caballero UA PROTEIN Negative Normal NEGATIVE/ TRACE [facility] Comment on above: Performed By: #### UACSIND #### [facility] [address] [place] [address] Dr. Megan Caballero UR MICRO IND NOT INDICATED Normal [facility] Comment on above: Performed By: #### UACSIND #### [facility] [address] [place] [address] Dr. Megan Caballero Urobilinogen Qn (U) 0.2 {Renu'U}/dL Normal 0.2 - 1.0 [facility] Comment on above: Performed By: #### UACSIND #### [facility] [address] [place] [address] Dr. Megan Caballero URIC ACID SERUMon 05-25-2022 Urate [Mass/Vol] 4.3 mg/dL Normal 2.6-6.0 [facility] Comment on above: Performed By: #### CRP, URIC #### [facility] [address] [place] [address] Dr. Megan Caballero XR FEMUR RTon 05-25-2022 [...] JELANI MAR Date: 2022-05-24 23:28 Normal [facility] CBC W MANUAL DIFFon 05-25-19 ATYPICAL LYMPH # Normal [facility] Comment on above: Performed By: #### LACT #### [facility] [address] [place] [address] Dr. Megan Caballero ATYPICAL LYMPH % Normal [facility] Comment on above: Performed By: #### LACT #### [facility] [address] [place] [address] Dr. Megan Caballero BAND # 0.0 103/ul Normal 0.0-0.3 [facility] Comment on above: Performed By: #### LACT #### [facility] [address] [place] [address] Dr. Megan Caballero BAND % 0 % Normal 0-5 [facility] Comment on above: Performed By: #### LACT #### [facility] [address] [place] [address] Dr. Megan Caballero BASOM # 0.00 103/ul Normal 0.00-0.10 [facility] Comment on above: Performed By: #### LACT #### [facility] [address] [place] [address] Dr. Megan Caballero BASOM % 0.0 % Critically low 0.2-2.0 [facility] Comment on above: Performed By: #### LACT #### [facility] [address] [place] [address] Dr. Megan Caballero BLAST # Normal [facility] Comment on above: Performed By: #### LACT #### [facility] [address] [place] [address] Dr. Megan Caballero BLAST % Normal [facility] Comment on above: Performed By: #### LACT #### [facility] [address] [place] [address] Dr. Megan Caballero CORRECTED WBC Normal 4.0-11.0 [facility] Comment on above: Performed By: #### LACT #### [facility] [address] [place] [address] Dr. Megan Caballero EOS # 0.00 103/ul Normal 0.00-0.70 [facility] Comment on above: Performed By: #### LACT #### [facility] [address] [place] [address] Dr. Megan Caballero EOS% 0.0 % Critically low 0.9-7.0 [facility] Comment on above: Performed By: #### LACT #### [facility] [address] [place] [address] Dr. Megan Caballero HCT 37.2 % Normal 36.0-48.0 [facility] Comment on above: Performed By: #### LACT #### [facility] [address] [place] [address] Dr. Megan Caballero HGB 12.2 g/dl Normal 12.0-16.0 [facility] Comment on above: Performed By: #### LACT #### [facility] [address] [place] [address] Dr. Megan Caballero LYMPHM # 0.23 103/ul Critically low 1.20-3.80 [facility] Comment on above: Performed By: #### LACT #### [facility] [address] [place] [address] Dr. Megan Caballero LYMPHM% 2.0 % Critically low 20.5-60.0 [facility] Comment on above: Performed By: #### LACT #### [facility] [address] [place] [address] Dr. Megan Caballero MCH 28.6 pg Normal 26.7-34.0 [facility] Comment on above: Performed By: #### LACT #### [facility] [address] [place] [address] Dr. Megan Caballero MCHC 32.8 g/dl Normal 29.9-35.2 [facility] Comment on above: Performed By: #### LACT #### [facility] [address] [place] [address] Dr. Megan Caballero MCV 87.1 fL Normal 81.0-99.0 [facility] Comment on above: Performed By: #### LACT #### [facility] [address] [place] [address] Dr. Megan Caballero METAMYELOCYTE # Normal [facility] Comment on above: Performed By: #### LACT #### [facility] [address] [place] [address] Dr. Megan Caballero METAMYELOCYTE % Normal [facility] Comment on above: Performed By: #### LACT #### [facility] [address] [place] [address] Dr. Megan Caballero MONOM# 0.23 103/ul Critically low 0.30-0.80 [facility] Comment on above: Performed By: #### LACT #### [facility] [address] [place] [address] Dr. Megan Caballero MONOM% 2.0 % Normal 1.7-12.0 [facility] Comment on above: Performed By: #### LACT #### [facility] [address] [place] [address] Dr. Megan Caballero MPV 9.5 fL Normal 9.5-13.5 [facility] Comment on above: Performed By: #### LACT #### [facility] [address] [place] [address] Dr. Megan Caballero MYELOCYTE # Normal [facility] Comment on above: Performed By: #### LACT #### [facility] [address] [place] [address] Dr. Megan Caballero MYELOCYTE % Normal [facility] Comment on above: Performed By: #### LACT #### [facility] [address] [place] [address] Dr. Megan Caballero NRBC Normal [facility] Comment on above: Performed By: #### LACT #### [facility] [address] [place] [address] Dr. Megan Caballero PLT 197 103/ul Normal 150-450 [facility] Comment on above: Performed By: #### LACT #### [facility] [address] [place] [address] Dr. Megan Caballero RBC 4.27 106/ul Normal 4.20-5.40 [facility] Comment on above: Performed By: #### LACT #### [facility] [address] [place] [address] Dr. Megan Caballero RDW 13.1 % Normal 11.0-15.0 [facility] Comment on above: Performed By: #### LACT #### [facility] [address] [place] [address] Dr. Megan Caballero SEG # 10.85 103/ul Critically high 1.40-6.50 [facility] Comment on above: Performed By: #### LACT #### [facility] [address] [place] [address] Dr. Megan Caballero SEG % 96.0 % Critically high 43.0-75.0 [facility] Comment on above: Performed By: #### LACT #### [facility] [address] [address] [address] Megan Caballero WBC 11.3 103/ul Critically high 4.0-11.0 [facility] Comment on above: Performed By: #### LACT #### [facility] [address] [place] [address] Dr. Megan Caballero CRPon 05-24-2022 CRP 1.7 mg/dL Critically high <=1.0 [facility] Comment on above: Performed By: #### LACT #### [facility] [address] [place] [address] PELVIS WO CONon CT PELVIS WO CON EXAMINATION: CT PELV [...] of iterative reconstruction technique. FINDINGS: The initial chip washer views demonstrate bilateral total hip prostheses. The [...] JELANI MAR Date: 2022-05-24 21:51 Normal [facility] PROF CHEM 8 (BAS METB)on Anion gap [Moles/Vol] 12.6 mmol/L Normal [facility] Comment on above: Performed By: #### LACT #### [facility] [address] [address] [address] Megan Caballero Calcium [Mass/Vol] 8.6 mg/dL Normal 8.5-10.1 [facility] Comment on above: Performed By: #### LACT #### [facility] [address] [address] [address] Megan Caballero Chloride [Moles/Vol] 102 mmol/L Normal 98-107 [facility] Comment on above: Performed By: #### LACT #### [facility] [address] [place] [address] Dr. Megan Caballero CO2 [Moles/Vol] 28.6 mmol/L Normal 21.0-32.0 [facility] Comment on above: Performed By: #### LACT #### [facility] [address] [address] [address] Megan Caballero Creatinine [Mass/Vol] 0.73 mg/dL Normal 0.55-1.02 [facility] Comment on above: Performed By: #### LACT #### [facility] [address] [place] [address] Dr. Megan Caballero EGFR-AF [facility] >60 Normal >=60 [facility] Comment on above: Performed By: #### LACT #### [facility] [address] [address] [address] Megan Caballero EGFR-NON AF [facility] >60 Normal >=60 [facility] Comment on above: Performed By: #### LACT #### [facility] [address] [address] [address] Megan Caballero Glucose [Mass/Vol] 121 mg/dL Critically high 74-106 [facility] Comment on above: Performed By: #### LACT #### [facility] [address] [address] [address] Megan Caballero Potassium [Moles/Vol] 3.2 mmol/L Critically low 3.5-5.1 [facility] Comment on above: Performed By: #### LACT #### [facility] [address] [place] [address] Dr. Megan Caballero Sodium [Moles/Vol] 140 mmol/L Normal 136-145 [facility] Comment on above: Performed By: #### LACT #### [facility] [address] [address] [address] Megan Caballero Urea nitrogen [Mass/Vol] 15.0 mg/dL Normal 7.0-18.0 [facility] Comment on above: Performed By: #### LACT #### [facility] [address] [place] [address] Dr. Megan Caballero Urea nitrogen/Creatin ine [Mass ratio] 20.5 mg/mg Normal [facility] Comment on above: Performed By: #### LACT #### [facility] [address] [place] [address] Dr. Megan Caballero SED RATE [facility] 2022 SED RATE 54 mm/hr Critically high <=30 [facility] Comment on above: Performed By: #### SEDR #### [facility] [address] [place] [address] Dr. Megan Caballero CNOVon 05-30-2020 CNOV Office Visit (UROLAV ) ANGELIKA MUIR ([id number]) 1940 [address] [employer] Date Time Provider Department 05/30/20 6:00 PM NEGRO POMPA During your visit today, we recorded the following information about you: Pulse Blood pressure Weight 101/minute 141/67 98.4 kg Negro Pompa MD 05/30/2020 6:55 PM Signed [facility] [...] Via bladder scan. Referring Provider: NEGRO POMPA [[id number]] Allergies As of Date: 05/30/2020 Noted Allergy [...] Status:Closed by NEGRO POMPA MD on 05/30/20 [facility] CNCOon 05-28-2020 CNCO Letter Text [facility] ANES POSTPROC EVALon 021 ANES POSTPROC EVAL HNO ID: [id number] Author: Ihsan Gamino Service: Anesthesiology Author Type: Anesthesiologist Type: Anesthesia Postprocedure Evaluation Filed: 05/01/2020 4:49 PM Note Text: POST ANESTHESIA EVALUATION NOTE : 1940 Procedure Summary Date: 05/01/20 Room / Location: [address] Anesthesia Start: 1504 Anesthesia Stop: 1620 Procedures: [...] May 01, 2020 TIME: 4:49 PM CSN: [id number] [facility] ANES PRE-OPon 05-01-2020 ANES PRE-OP HNO ID: [id number] Author: Ihsan Gamino Service: Anesthesiology Author Type: [...] May 01, 2020 TIME: 3:53 PM CSN: [id number] [facility] HISTORY PHYSICALon HISTORY PHYSICAL HNO ID: [id number] Author: Negro Pompa Service: Urology Author Type: [...] Pompa MD May 01, 2020 1:22 PM [facility] OPERATIVE NOon 05-01-2020 OPERATIVE NO HNO ID: [id number] Author: Negro Pompa Service: Urology Author Type: Physician Type: Operative Report Filed: 05/01/2020 5:00 PM Note Text: OPERATIVE/PROCEDURE REPORT LOG ID: [id number] SURGERY/PROCEDURE DATE: 05/01/2020 INCISION/PROCEDURE START TIME: 3:28 PM INCISION CLOSE/PROCEDURE END TIME: 4:05 PM SURGEON(S)/PROCEDURALIST(S) AND CORPORATE DRIVER(S): Surgeon(s) and Role: * Negro Mendezdalotnsahil - Primary No Additional Staff SURGERY/PROCEDURE(S): Incision [...] 01, 2020 TIME: 4:45 PM PAGER/CONTACT #: [facility] SURGICAL PATHOLOGYon 021 SURGICAL PATHOLOGY Specimen originated from [facility] Specimen #: [id number] Submitting Physician: NEGRO POMPA FINAL DIAGNOSIS Vaginal [...] cassette. DOUG/evens 05/02/2020 Gross examination performed at [facility], [address] [address] Date of Report: 05/06/2020 Date of Procedure: 05/01/2020 Date of Receipt: 05/02/2020 Submitted by: NEGRO POMPA Location: [facility] Diagnostic interpretation performed at [facility], [address] [place] [address]. CLIA Number: [id number] [facility] HOSPon 04-19-2020 HOSP Patient:WoodNany carter MRN: Height:5' 6 (1.676 m) Weight:No patient [...] notes entered within the past 30 days [facility] Provider Letteron 11-21-2019 Provider Letter (Inserted Image. Patricia ble to display) November 21, 2019 ANGELIKA MUIR [address] [place] [id number] ANGELIKA MUIR Judy 1940 Dear Angelika, You missed your scheduled [...] understanding. Sincerely, [facility]/Dr De La Cruz [facility] Ambulatory Clinical Summaryo n 10-27-2019 Ambulatory Clinical Summary {[id number] [facility] Patient Educationon 10-24-19 20 Patient Education Family [...] bladder worse. Your healthcare provider or a refuse driver can explain ways to change what you [...] Document Reviewed: 01/02/2010 ExitCare? Patient Information ?2013 [employer]. [facility] Urology Office/Clinic Noteon 10-24-2019 Urology Office/Clinic [...] and pt was advised to use the [employer] RX card. Pt will return in 1 month. Ordered: PVR urine/bladder capacity/US 19832 Urnls Dip Stick Auto w/o Microscopy POC 29045 2. Other urethral stricture, female (N35.82: Other [...] Daily, # 30 tab(s), Refills(s) 1, Pharmacy: [facility], 170, cm, 10/24/19 14:15:00 EDT, Height/Length Measured, 100, kg, 10/24/19 14:15:00 EDT, Weight Measured I have reviewed the previous health record information and history for this patient from Dr. De La Cruz Follow-up With When Contact Information Jono Faust MD, Bandar Devine In 1 month [facility] [address], [place] [address]- Additional Instructions: w/ PVR Patient Education Overactive [...] Protein Urine Dipstick: Negative (10/24/19 14:03:00) Specific [place] Urine Dipstick: 1.025 (10/24/19 14:03:00) Urine Appearance Urine Dipstick: Clear (10/24/19 14:03:00) Urine Color Urine Dipstick: Yellow (10/24/19 14:03:00) Urobilinogen Urine Dipstick: Normal 0.2-1 EU/dl (10/24/19 14:03:00) pH Urine Dipstick: 5.5 (10/24/19 14:03:00) Diagnostic Results PVR was reviewed at 85 cc. Urinalysis shows no infection. [facility] Comment on above: Result Comment: Electronically Signed By : Jono Faust MD, Bandar Devine\.br\Date and Time Signed: 10/24/19 14:59 EDT\.br\Electronically Co-Signed By: Lida Ybarra MA\.br\Date and Time Co-Signed: 10/24/19 14:56 EDT Ambulatory Clinical Summaryo n 08-24-2019 Ambulatory Clinical Summary {[id number] Normal [facility] Reminderson 04-24-2019 Reminders - From: Kristen Rivero To: EU - Clinical; Sent: 04/04/2019 15:20:13 EST Show up: 04/24/2019 07:00:00 EST Subject: Urodynamics Report Due Date/Time: 04/24/2019 07:00:00 EST Reminder/Recall Show Dr. De La Cruz results, patient may need scheduled for Cysto/TVT sling Test: Urodynamics Test being done 04/20/19 @ [facility] From: Eddie CHURCH, Fili Devine (EU - Clinical) To: Jono Faust MD, Bandar Devine; Sent: 04/24/2019 08:02:48 EST Show up: 04/24/2019 08:02:00 EST Subject: RE: Urodynamics Report Please review Urodynamics report. Per message, Pt may need scheduled for Cysto/ TVT Normal [facility] Coding Summary.on 04-21-2019 Coding Summary. CODING DATE: 020 FINAL [facility] STATUS: Home (Routine DC) PAYOR: Medicare APC [...] Garces Date Saved: 04/21/2019 01:56 pm Normal [facility] Patient Summaryon 02-02-2019 Patient Summary PATIENT DISCHARGE IN STRUCTIONS If you are having an emergency and are not able to reach your physician, CALL 911 or go to the nearest emergency room and take this document with you. [facility] 02/02/19 09:32 [address] [facility], [place], [place]. [address] PATIENT INFORMATION Name: ANGELIKA MUIR Judy [address]: [address] [place] [id number] Age: 78 Years Phone: [phone] : 1940 12:00 MRN: [id number] Sex: Female Race: White Ethnicity: Not Hispan/Lat Admitted From: Clinic or [facility] Medical Service: Orthopedic Surgery Nurse Unit/Bed: (PR) 2N 0219-01 Admit Date: 01/30/2019 05:59 PCP: Eduardo Rose MD PHYSICIANS INVOLVED WITH CARE Attending Physicians: Rancho SIEGEL , Amrik Sutton - Orthopaedic Surg Admitting Physician: Rancho SIEGEL , Jean Claude - Orthopaedic Surg Primary Care Physician:Eduardo Rose MD,Internal Medicine, - Consults: Rosibel SIEGEL , Elbert Kim - [facility] FOLLOW-UP APPOINTMENTS: Provider: Specialty: Address: Date: Amrik Vickers MD Orthopaedic Surg [address] [facility] [address] (1) Six Weeks Comment: Call for an Appointment Provider: Specialty: Address: Date: Eduardo Rose MD Internal Medicine [address] [facility] [address] (1) Follow-up as needed Provider: Specialty: Address: Date: [facility]: [facility] [phone] Follow-up as needed ALLERGIES: No Known Medication Allergies No Known Allergies MEASUREMENTS: Last Charted: Weight: Admission 94.90 kg /209 lbs 3 oz ( 01/30/19 07:20:00 ) MEDICATIONS For: ANGELIKA MUIR Judy This is your list of medication(s). Keep it with you at all times. Your doctor may have changed doses, add, held or stopped some of your medications. Please share this information with your family doctor. Carry this list of medications with you in case of an emergency. Update it when medications are stopped, doses are changed, or new medications (including evmj-tgl-amljncs products) are added. Ask your doctor if [...] Decisions Type: Living Will, Medical Power of Nuclear Reactor Technician Copy of Advance Directive/Health Care Decisions on Chart: Patient/Family asked to provide copy SUICIDE HOTLINE: Your mental and emotional well-being are important. If you are in a mental health crisis, or having thoughts of suicide, please call the nationwide suicide hotline, anytime day or night, at 7-207-387-CBTO. Important information about accessing your health information through the [facility] patient portal If you initiated the self-registration process for [facility] during your stay, please check your personal email for an invitation to enroll in [facility] and complete the steps outlined in the email. If you would prefer to enroll while in the hospital, ask a member of your care team. We would be happy to assist you. If you have already enrolled in [facility], go to [email or web address] to login and access your health information. Thank you for choosing [facility]. PATIENT EDUCATION Fall Prevention in the Home [...] wet floors. ???Place frequently used items in aeno-ug-pxypf places. ???If you need to reach for something above you, use a sturdy step stool that has a grab bar. ???Keep electrical cables out of the way. ???Do not use floor kiswahili or wax that makes floors slippery. If [...] include working with a physical therapist or regional trainer to improve your strength, balance, and endurance. This information is not intended to replace advice given to you by your health care provider. Make sure you discuss any questions you have with your health care provider. Document Released: 02/26/2003 Document Revised: 07/23/2015 Document Reviewed: 04/12/2015 [employer] Interactive Patient Education ?2016 [employer] Incentive Spirometer An incentive spirometer is [...] 07/19/2007 Document Revised: 03/29/2015 Document Reviewed: 10/15/2014 [employer] Interactive Patient Education ?2016 [employer] Pain Medicine Instructions HOW CAN PAIN [...] liver damage. Acetaminophen is found in many sumo-zly-alazpyo (OTC) and prescription medicines. If you are [...] 06/14/2001 Document Revised: 07/23/2015 Document Reviewed: 01/10/2015 [employer] Interactive Patient Education ?2016 [employer] Preventing Constipation After Surgery Constipation is [...] a bowel movement. ???Having hard, dry, or fqlvlk-zffv-uuesce stools. ???Feeling full or bloated. ???Having pain in the lower abdomen. ???Not feeling relief after having a bowel movement. HOME CARE INSTRUCTIONS Diet ???Eat foods that have a lot of fiber. These include fruits, vegetables, whole grains, and beans. Limit foods high in fat and processed sugars. These include upper sorbian fries, hamburgers, cookies, and candy. ???Take a [...] softener, laxative, or fiber supplement. ???Only take wxag-eci-rjcqllw or prescription medicines as directed by your [...] 07/03/2013 Document Revised: 03/29/2015 Document Reviewed: 07/03/2013 [employer] Interactive Patient Education ?2016 [employer] Venous Thromboembolism, Prevention A venous thromboembolism [...] 02/24/2010 Document Revised: 11/30/2012 Document Reviewed: 07/03/2015 [employer] Interactive Patient Education ?2016 [employer] VIRUSES OR BACTERIA: WHAT'S GOT YOU [...] Patient Clinician Signature Date/Time Normal [facility] Basic Metabolic Panelon 11- Calcium [Mass/Vol] 8.4 mg/dL Low 8.5-10.6 [facility] Chloride [Moles/Vol] 105 mmol/L Normal 98-107 [facility] CO2 [Moles/Vol] 32 mmol/L Normal 21-32 [facility] Creatinine [Mass/Vol] 0.77 mg/dL Normal 0.55-1.02 [facility] Glucose [Mass/Vol] 108 mg/dL High 70-99 [facility] Potassium [Moles/Vol] 4.1 mmol/L Normal 3.5-5.1 [facility] Sodium [Moles/Vol] 141 mmol/L Normal 136-145 [facility] Urea nitrogen (BldV) [Mass/Vol] 20 mg/dL High 7.0-18.0 [facility] Urea nitrogen/Creatin ine [Mass ratio] 26 mg/mg Normal [facility] Basic Metabolic Panelon 01-20 Calcium [Mass/Vol] 8.4 mg/dL Low 8.5-10.6 [facility] Chloride [Moles/Vol] 105 mmol/L Normal 98-107 [facility] CO2 [Moles/Vol] 31 mmol/L Normal 21-32 [facility] Creatinine [Mass/Vol] 0.86 mg/dL Normal 0.55-1.02 [facility] Glucose [Mass/Vol] 101 mg/dL High 70-99 [facility] Potassium [Moles/Vol] 4.1 mmol/L Normal 3.5-5.1 [facility] Sodium [Moles/Vol] 140 mmol/L Normal 136-145 [facility] Urea nitrogen (BldV) [Mass/Vol] 21 mg/dL High 7.0-18.0 [facility] Urea nitrogen/Creatin ine [Mass ratio] 24 mg/mg Normal [facility] Anesthesia Recordon 01-31-20 Anesthesia Record Patient: ANGELIKA MUIR MRN: [id number] Age: 78 years Sex: Female : 1940 Associated Diagnoses: None Author: Nadine Barrera MD Procedure Time Out [place] Protocol: patient identity verified, site verified, side verified, procedure to be done verified, patient position verified. REGIONAL ANESTHESIA PROCEDURE Procedure date and begin time: See nurses notes. Procedure date and end time: See nurses notes. Performed by: Nadine Barrera MD. Assisted by: no fish hatchery assistant. Informed consent: signed by patient. Technique: [...] M17.11 Knee Pain . Normal [facility] Anesthesia Record Patient: ANGELIKA MUIR MRN: [id number] Age: 78 years Sex: Female : 1940 Associated Diagnoses: None Author: Nadine Barrera MD Procedure Time Out [place] Protocol: patient identity verified, site verified, side verified, procedure to be done verified, patient position verified. REGIONAL ANESTHESIA PROCEDURE Procedure date and begin time: See nurses notes. Procedure date and end time: See nurses notes. Performed by: Nadine Barrera MD. Assisted by: no fish hatchery assistant. Informed consent: signed by patient. Technique: [...] Knee Pain OA . Normal [facility] Basic Metabolic Panelon 01-20 Calcium [Mass/Vol] 9.0 mg/dL Normal 8.5-10.6 [facility] Chloride [Moles/Vol] 106 mmol/L Normal 98-107 [facility] CO2 [Moles/Vol] 29 mmol/L Normal 21-32 [facility] Creatinine [Mass/Vol] 0.84 mg/dL Normal 0.55-1.02 [facility] Glucose [Mass/Vol] 105 mg/dL High 70-99 [facility] Potassium [Moles/Vol] 3.7 mmol/L Normal 3.5-5.1 [facility] Sodium [Moles/Vol] 143 mmol/L Normal 136-145 [facility] Urea nitrogen (BldV) [Mass/Vol] 23 mg/dL High 7.0-18.0 [facility] Urea nitrogen/Creatin ine [Mass ratio] 27 mg/mg Normal [facility] OR Nursingon 01-30-2019 OR Nursing Normal [facility] PACU I Nursingon 01-30-2019 PACU I Nursing CO NA PACU I Nursing Record Summary Primary Physician: Amrik Vickers MD Finalized Date/Time: 01/30/19 12:48:37 Pt. Name: WOODANGELIKA/Sex: 1940 Female Med Rec #: [id number] Physician: Amrik Vickers MD Financial #: [id number] Pt. Type: I Room/Bed: Admit/Disch: 01/30/19 05:59:00 [...] Rosas RN 01/30/19 12:48 Normal [facility] PreOp Nursingon 01-30-2019 PreOp Nursing CO NA PreOp Nursing Record Summary Primary Physician: Amrik Vickers MD Finalized Date/Time: 01/30/19 09:02:48 Pt. Name: TARN MUIRPAOLA Nayak/Sex: 1940 Female Med Rec #: [id number] Physician: Amrik Vickers MD Financial #: [id number] Pt. Type: I Room/Bed: / Admit/Disch: 01/30/19 [...] Batista RN 01/30/19 09:02 Normal [facility] Basic Metabolic Panelon 10-3 Calcium [Mass/Vol] 9.0 mg/dL Normal 8.5-10.6 [facility] Chloride [Moles/Vol] 103 mmol/L Normal 98-107 [facility] CO2 [Moles/Vol] 31 mmol/L Normal 21-32 [facility] Creatinine [Mass/Vol] 0.78 mg/dL Normal 0.55-1.02 [facility] Glucose [Mass/Vol] 90 mg/dL Normal 70-99 [facility] Potassium [Moles/Vol] 4.1 mmol/L Normal 3.5-5.1 [facility] Sodium [Moles/Vol] 142 mmol/L Normal 136-145 [facility] Urea nitrogen (BldV) [Mass/Vol] 19 mg/dL High 7.0-18.0 [facility] Urea nitrogen/Creatin ine [Mass ratio] 24 mg/mg Normal [facility] CBC with Differentialon 10-3 Basophils (Bld) [#/Vol] 0.0 thou/mcL Normal 0.0-0.2 [facility] Basophils/100 WBC (Bld) 0.8 % Normal 0-3 [facility] Differential cell count method Nom (Bld) AUTOMATED DIFFERENTIAL Normal [facility] Eosinophils (Bld) [#/Vol] 0.1 thou/mcL Normal 0.0-0.4 [facility] Eosinophils/100 WBC (Bld) 2.0 % Normal 0-7 [facility] Erythrocyte distribution width (RBC) [Entitic vol] 14.4 % Normal 11.7-15.0 [facility] Hematocrit (Bld) [Volume fraction] 36.7 % Normal 34.0-50.0 [facility] Hemoglobin (Bld) [Mass/Vol] 12.1 g/dL Normal 11.5-17.0 [facility] Lymphocytes (Bld) [#/Vol] 1.3 thou/mcL Normal 0.7-4.5 [facility] Lymphocytes/100 WBC (Bld) 26.0 % Normal 14-46 [facility] MCH (RBC) [Entitic mass] 29.2 Picograms Normal 27.0-34.0 [facility] MCHC (RBC) [Mass/Vol] 32.9 g/dL Normal 32.0-36.0 [facility] MCV (RBC) [Entitic vol] 88.7 fL Normal 80-98 [facility] Monocytes (Bld) [#/Vol] 0.4 thou/mcL Normal 0.1-1.0 [facility] Monocytes/100 WBC (Bld) 8.5 % Normal 4-13 [facility] Neutrophils (Bld) [#/Vol] 3.1 thou/mcL Normal 1.5-7.8 [facility] Neutrophils/100 WBC (Bld) 62.7 % Normal 40-74 [facility] Platelet mean volume (Bld) [Entitic vol] 8.4 fL Normal 7.5-11.2 [facility] Platelets (Bld) [#/Vol] 214 thou/mcL Normal 140-415 [facility] RBC (Bld) [#/Vol] 4.13 x(10)6/mcL Normal 3.80-5.60 [facility] WBC (Bld) [#/Vol] 5.0 thou/mcL Normal 4.0-10.5 [facility] Culture Methicillin Resistan t Staph aureuson 01-19-2019 MRSA isol Org specific cx Ql (Unsp spec) [facility] Microbiology PROCEDURE: Culture Methicillin Resistant Staph aureus SOURCE: Nasal Swab BODY SITE: COLLECTED DATE/TIME: 01/19/2019 15:10 EDT RECEIVED DATE/TIME: 01/19/2019 15:10 EDT START DATE/TIME: 01/19/2019 15:10 EDT FREE TEXT SOURCE: NASAL SWAB-. INTERFACED REPORTS Final Report [] Verified Date/Time/Personnel: 01/20/2019 21:24 EDT CONTRIBUTOR_SYSTEM, CO_PN *MRSA SCREEN* NEGATIVE FOR METHICILLIN(OXACILLIN) RESISTANT STAPHYLOCOCCUS AUREUS. Normal [facility] Comment on above: Performed By: #### [id number] #### [place] [address] [place], [place] Partial Thromboplastin Time (aPTT)on 01-19-2019 aPTT Coag (PPP) [Time] 31 Sec Normal 23.2-34.6 [facility] Prothrombin Timeon 9 INR Coag (Bld) [Relative time] 1.0 {INR} Normal [facility] Comment on above: Result Comment: DURING THE INDUCTION PHA SE OF ORAL ANTICOAGULATION, THE INR MAY NOT REFLECT THE ANTICOAGULANT STATUS OF THE PATIENT. THERAPEUTIC RANGES FOR INR'S ARE: MOST CLINICAL SITUATIONS: INR 2.0-3.0 MECHANICAL PROSTHETIC VALVES: INR 2.5-3.5 CRITICAL: INR 5.0 PT Coag (PPP) [Time] 12.6 Sec Normal 11.9-14.6 [facility] XR C-Spine 4-5 Viewson 01-19 XR [...] disease, notably advanced at C5-C6 and C6-C7. [facility] thanks you for the opportunity to care for your patient. Workstation ID: [id number] FINAL REPORT Dictated By: Fritz Styles MD 01/19/2019 21:13 Assigned Physician: Fritz Styles MD Reviewed and Electronically Signed By: Fritz Styles MD 01/19/2019 21:17 Transcribed by: JESSIE 01/19/2019 21:13 Technologist: KAYLIN Gomes [facility] Culture Anaerobicon 10-19-19 19 Bacteria identified Anaer cx Nom (Unsp spec) [facility] Microbiology PROCEDURE: Culture Anaerobic SOURCE: Joint [...] CO_PN CULTURE IN PROGRESS Normal [facility] Comment on above: Performed By: #### [id number] #### [address] Culture Body Fluid + Suscept ibility + Smear Directon 10-18-2018 Bacteria identified Sterile body fluid culture Nom (Unsp spec) [facility] Microbiology PROCEDURE: Culture Body Fluid + [...] SEEN, NO ORGANISMS SEEN Normal [facility] Comment on above: Performed By: #### [id number] #### [place] [address] [place], [place] Culture Funguson 10-18-2018 Fungus identified Cx Nom (Unsp spec) [facility] Microbiology PROCEDURE: Culture Fungus SOURCE: Joint [...] HELD FOR 1-4 WEEKS Normal [facility] Comment on above: Performed By: #### [id number] #### [address] XR SHOULDER LEFT MIN 2 VIEWS on [...] I have reviewed andapproved this report. 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 Isaw her in our [place] office. She has had a complete evaluation [...] 11/06/2016/03:29 P/Ankur France M.D.Date Trans: 11/07/2016 06:05 A/Tyrese_JN:[id number]: Eduardo Rose M.D. [address] [place] [address] Normal [facility] Vital Signs Date Time Vital Sign Value Performing Clinician Facility 06-24-2023 16:23-0400 Body height 162.6 cm Otis Furlong DO Work Phone: [facility] 06-24-2023 16:23-0400 Body mass index (BMI) [Ratio] 31.07 kg/m2 Otis Furlong DO Work Phone: [facility] 06-24-2023 16:23-0400 Body weight 82.1 kg Otis Furlong DO Work Phone: [facility] 06-24-2023 16:23-0400 Diastolic blood pressure 78 mm[Hg] Otis Furlong DO Work Phone: [facility] 06-24-2023 16:23-0400 Systolic blood pressure 132 mm[Hg] Otis Furlong DO Work Phone: [facility] 05-24-2023 14:31-0500 Body height 162.6 cm Otis Furlong DO Work Phone: [facility] 05-24-2023 14:31-0500 Body mass index (BMI) [Ratio] 31.07 kg/m2 Otis Furlong DO Work Phone: [facility] 05-24-2023 14:31-0500 Body temperature 98.29 [degF] Otis Furlong DO Work Phone: [facility] 05-24-2023 14:31-0500 Body weight 82.1 kg Otis Furlong DO Work Phone: [facility] 05-24-2023 14:31-0500 Diastolic blood pressure 60 mm[Hg] Otis Furlong DO Work Phone: [facility] 05-24-2023 14:31-0500 Heart rate 81 /min Otis Furlong DO Work Phone: [facility] 05-24-2023 14:31-0500 SaO2% (BldA) [Mass fraction] 96 % Otis Furlong DO Work Phone: [facility] 05-24-2023 14:31-0500 Systolic blood pressure 120 mm[Hg] Otis Burlesonng DO Work Phone: [facility] Before [facility] 04-02-2023 09:47-0500 Body height 162.6 cm Veronica Chahal APRN-READY TO WEAR DEPARTMENT MANAGER Work Phone: [facility] 04-02-2023 09:47-0500 Body mass index (BMI) [Ratio] 30.21 kg/m2 Veronica Chahal PLASTER MIXER-READY TO WEAR DEPARTMENT MANAGER Work Phone: [facility] 04-02-2023 09:47-0500 Body temperature 97 [degF] Veronica Chahal APRN-READY TO WEAR DEPARTMENT MANAGER Work Phone: [facility] 04-02-2023 09:47-0500 Body weight 79.83 kg Veronica Chahal APRN-READY TO WEAR DEPARTMENT MANAGER Work Phone: [facility] 04-02-2023 09:47-0500 Diastolic blood pressure 70 mm[Hg] Veronica Chahal APRN-READY TO WEAR DEPARTMENT MANAGER Work Phone: [facility] 04-02-2023 09:47-0500 Heart rate 105 /min Veronica Chahal APRN-READY TO WEAR DEPARTMENT MANAGER Work Phone: [facility] 04-02-2023 09:47-0500 Respiratory rate 16 /min Veronica Chahal APRN-READY TO WEAR DEPARTMENT MANAGER Work Phone: [facility] 04-02-2023 09:47-0500 SaO2% (BldA) [Mass fraction] 97 % Veronica Chahal APRN-READY TO WEAR DEPARTMENT MANAGER Work Phone: [facility] 04-02-2023 09:47-0500 Systolic blood pressure 130 mm[Hg] Veronica Chahal APRN-READY TO WEAR DEPARTMENT MANAGER Work Phone: [facility] 03-24-2021 15:45-0500 Body height 166.37 cm Yolanda Schwerer Other [employer] Other 03-24-2021 15:45-0500 Body mass index (BMI) [Ratio] 35.23 kg/m2 Yolanda Schwerer Other [employer] Other 03-24-2021 15:45-0500 Body temperature 99.4 [degF] Yolanda Schwerer Other [employer] Other 03-24-2021 15:45-0500 Body weight 97.52 kg Yolanda Schwerer Other [employer] Other 03-24-2021 15:45-0500 Diastolic blood pressure 78 mm[Hg] Yolanda Schwerer Other [employer] Other 03-24-2021 15:45-0500 SaO2% (BldA) [Mass fraction] 96 % Yolanda Schwerer Other [employer] Other 03-24-2021 15:45-0500 Systolic blood pressure 132 mm[Hg] Yolanda Schwerer Other [employer] Other Encounters Encounter Date Encounter Type Care Provider Facility Start: 08-09-2023 End: 08-10-2023 ambulatory Tony Holguin MD Facility: [facility] Start: 07-29-2023 End: 07-29-2023 ambulatory [facility] Start: 07-26-2023 End: 07-27-2023 ambulatory Tony Holguin MD Facility: [facility] Start: 07-12-2023 End: 07-13-2023 ambulatory Tony Holguin MD Facility: [facility] Start: 06-24-2023 End: 06-24-2023 ambulatory [facility] Start: 06-24-2023 End: 06-24-2023 Patient encounter procedure Otis Chaves DO Work Phone: [facility] Comment on above: Medicare annual well ness visit, subsequent (Primary Dx); Screening for depression Start: 05-25-2023 ambulatory [facility] Start: 05-25-2023 End: 05-25-2023 Patient encounter procedure Otis Chaves DO Work Phone: [facility] Comment on above: Abnormal urinalysis (Primary Dx); Abnormal kidney function Start: 05-25-2023 End: 05-25-2023 [facility] Start: 05-24-2023 End: 05-25-2023 ambulatory [facility] Start: 05-24-2023 End: [...] 04-19-2023 End: 04-20-2023 Orders Only Veronica Chahal PLASTER MIXER-READY TO WEAR DEPARTMENT MANAGER Work Phone: [facility] Comment on above: Bilateral hip pain ( Primary Dx) Start: 04-02-2023 End: 04-02-2023 ambulatory VERONICA CHAHAL [facility] Start: 04-02-2023 End: 04-02-2023 Office outpatient visit 15 minutes Gilda Kuns PLASTER MIXER-READY TO WEAR DEPARTMENT MANAGER Work Phone: [facility] Comment on above: PMR (polymyalgia rhe umatica) ([facility]) (Primary Dx); Bilateral hip pain; Confusion caused by a drug Start: 09-07-2022 End: 09-07-2022 ambulatory Gennaro Cheng Facility:[facility] Start: 05-25-2022 End: 05-26-[address] SARIKA MUHAMMAD . Facility: Start: 07-15-2021 End: 07-15-2021 ambulatory Yolanda Schwerer Other [employer] Other Start: 07-15-2021 Telephone encounter Yolanda Schwerer [place] [facility] [place] Start: 04-28-2021 End: 04-28-2021 ambulatory Yolanda Schwerer Other [employer] Other Start: 04-28-2021 Telephone encounter Yolanda Schwerer [place] [facility] Family [facility] Start: 04-03-2021 End: 04-03-2021 ambulatory Yolanda Schwerer Other [employer] Other Start: 04-03-2021 Telephone encounter Yolanda Schwerer [place] [facility] [place] Start: 03-24-2021 End: 03-24-2021 ambulatory Yolanda Schwerer Other [employer] Other Start: 03-24-2021 Office outpatient vi sit 15 minutes Yolanda Schwerer [place] [facility] [place] Start: 03-20-2021 End: 03-20-2021 ambulatory Yolanda Schwerer Other [employer] Other Start: 03-20-2021 Telephone encounter Yolanda Schwerer [facility] Start: 03-03-2021 End: 03-03-2021 ambulatory Yolanda Schwerer Other [employer] Other Start: 03-03-2021 Telephone encounter Yolanda Schwerer [place] [facility] [place] Start: 07-21-2017 Ambulatory JOSE LUIS LIZAMA [facility] Start: 11-06-2016 End: 11-07-2016 Ambulatory ANKUR Lesley [place] [facility] Procedures Date Procedure Procedure Detail Performing Clinician Start: 06-24-2023 Adult depression screening assessment Otis Furlong DO Work Phone: Start: 05-25-2023 Urnls dip stick/tabl et rgnt non-auto w/o micrscp Otis G Furlong DO Work Phone: Start: 05-24-2023 Adult depression screening assessment Otis Burlesonng DO Work Phone: Start: 12-23-2022 Adult depression screening assessment Veronica Chahal PLASTER MIXER-READY TO WEAR DEPARTMENT MANAGER Work Phone: Start: 06-18-2015 H/O: artificial joint Status p ost total shoulder arthroplasty Veronica Chahal PLASTER MIXER-READY TO WEAR DEPARTMENT MANAGER Work Phone: Plan of Treatment Date Care Activity Detail Author Start: 06-23-2024 Adult BMI Screening Adult BMI Screen ing [facility] Start: 06-23-2024 Depression Screening Depression Scre ening [facility] Start: 06-23-2024 Fall Risk Screening Fall Risk Screen ing [facility] Start: 06-23-2024 Medicare Annual Wellness Visit Medicare Annual Wellness Visit [facility] Start: 05-23-2024 Adult BMI Screening Adult BMI Screen ing [facility] Start: 05-23-2024 Depression Screening [facility] Start: 05-23-2024 Fall Risk Screening Fall Risk Screen ing [facility] Start: 05-23-2024 Tobacco Screening Tobacco Screening [facility] Start: 04-02-2024 Adult BMI Screening [facility] Start: 04-02-2024 Tobacco Screening Tobacco Screening [facility] Start: 12-24-2023 Depression Screening [facility] Scre [facility]ing [facility] Start: 12-24-2023 Fall Risk Screening [facility] Start: 12-24-2023 Tobacco Screening Tobacco Screening [facility] Start: 11-21-2023 Influenza vaccination Influenza Vacc ine [facility] Start: 07-29-2023 End: 07-29-2023 Patient encounter procedure 07/29/2023 3:30 PM EDT [facility] [address] [place] [address] Otis Chaves DO [address] [place] [address] [facility] Start: 06-20-2023 Influenza vaccination Influenza Vacc ine [facility] Comment on above: Postponed from 11/20 (Patient Refused) Start: 04-02-2023 End: 04-02-2024 XR Hip - bilateral 2 Views X-ray hips bilateral with or without pelvis 2 views Imaging Routine Bilateral hip pain Expected: 04/02/2023, Expires: 04/02/2024 [facility] Work Phone: Comment on above: Expected: 04/02/2023 , Expires: 04/02/2024 Start: 11-20-2022 Influenza vaccination Influenza Vacc ine [facility] Start: 1959 DTaP,Tdap and Td Vaccines (1 - Tdap) DTaP,Tdap and Td Vaccines (1 - Tdap) [facility] Start: 02-24-1958 Adult BMI Follow Up Plan Adult BMI Follow Up Plan [facility] Start: 1940 Medicare Annual Wellness Visit Medicare Annual Wellness Visit [facility] End: 05-23-2024 Hemoglobin A1c/Hemoglobin.total in Blood Hemoglobin A1c Lab Routine Hyperglycemia 1 Occurrences starting 05/24/2023 until 05/23/2024 [employer] Work Phone: Comment on above: 1 Occurrences starti ng 05/24/2023 until 05/23/2024 Hemoglobin A1c/Hemoglobin.total in Blood Hemoglobin A1c Lab Routine Hyperglycemia 05/24/2023 11:12 PM EST [facility] Immunizations Immunization Date Immunization Notes Care Provider Fa cility 05-25-2022 COVID-19, mRNA, LNP- S, PF, 100mcg/0.5mL Dose Veronica Chahal PLASTER MIXER-READY TO WEAR DEPARTMENT MANAGER Work Phone: [facility] 10-24-2021 zoster vaccine recombinant Veronica Chahal PLASTER MIXER-READY TO WEAR DEPARTMENT MANAGER Work Phone: [facility] 07-22-2021 zoster vaccine recombinant Veronica Chahal PLASTER MIXER-READY TO WEAR DEPARTMENT MANAGER Work Phone: [facility] 05-09-2021 Influenza, injectabl e, Madin Tanya Canine Kidney, preservative free, quadrivalent Veronica Chahal PLASTER MIXER-READY TO WEAR DEPARTMENT MANAGER Work Phone: [facility] 05-09-2021 influenza virus vaccine, unspecified formulation Veronica Chahal PLASTER MIXER-READY TO WEAR DEPARTMENT MANAGER Work Phone: [facility] 07-05-2020 COVID-19 Vaccine Pfi zer - Documentation Purposes Only Yolanda Schwerer Other [employer] Other 06-07-2020 COVID-19 Vaccine Pfi zer - Documentation Purposes Only Yolanda Schwerer Other [employer] Other 05-02-2018 influenza, seasonal, injectable, preservative free Veronica Chahal PLASTER MIXER-READY TO WEAR DEPARTMENT MANAGER Work Phone: [facility] 04-30-2018 zoster vaccine recombinant Yolanda Schwerer Other [employer] Other 01-06-2018 influenza, high dose seasonal, preservative-free Veronica Chahal PLASTER MIXER-READY TO WEAR DEPARTMENT MANAGER [facility]: [facility] 01-06-2018 zoster vaccine recombinant Yolanda Schwerer Other [employer] Other 03-19-2017 pneumococcal conjuga te vaccine, 13 valent Yolanda Schwerer Other [employer] Other 02-25-2017 influenza, high dose seasonal, preservative-free Veronica Chahal PLASTER MIXER-READY TO WEAR DEPARTMENT MANAGER Work Phone: [employer] 04-27-2016 pneumococcal polysaccharide vaccine, 23 valent Yolanda Schwerer Other [employer] Other 12-18-2014 pneumococcal polysaccharide vaccine, 23 valent Yolanda Schwerer Other [employer] Other 12-18-2014 zoster vaccine, live Yolanda Schwerer Other [employer] Other 02-11-2009 zoster vaccine, live Yolanda Schwerer Other [employer] Other Payers Date Payer Category Payer Self-pay 2015 Unknown [id number] 2003 Medicare [id number] 2003 Medicare [id number] 2003 Medicare [id number] 1959 Medicare [id number] 1959 Unknown [id number] 2. [id number] 1938 Unknown [id number] 2.16.84 [id number] 1938 Unknown [id number] 2.16.8 40.1.719457.3.579.2.1286 1938 Unknown [id number] 2.16.8 40.1.875421.3.579.2.1286 1938 Unknown [id number] 2.16.8 40.1.638882.3.579.2.1286 1938 Unknown [id number] 2.16.8 40.1.736749.3.579.2.1286 1938 Unknown [id number] 2.16.8 40.1.036468.3.579.2.1286 1938 Unknown [id number] 2.16.84 0.1.323178.3.579.2.1286 1938 Unknown [id number] 2.16. 840.1.963121.3.579.2.196 1938 Unknown [id number] 2.16. 840.1.138972.3.579.2.196 1938 Unknown [id number] 2.16. 840.1.896302.3.579.2.196 1938 Unknown [id number] 2.16. 840.1.036850.3.579.2.196 1938 Unknown [id number] 2.16. 840.1.718646.3.579.2.196 1938 Unknown [id number] 2.16. [id number] Medicare [id number] 2.1 [id number] Unknown [id number] 2.16.8 40.1.286295.3.579.2.531 Social History Date Type Detail Facility Unknown if ever smoked [employer] Other Start: 04-02-2023 End: 06-24-2023 Sex Assigned At [facility] Start: 01-06-2022 Tobacco smoking status NHIS Ex-smoker [facility] History of tobacco use [facility] of tobacco use Cigarette Smoker P [facility] Start: 01-06-2022 Tobacco use and exposure Smokeless tobacco non-user [facility] Start: 04-02-2023 End: 05-24-2023 Alcohol intake Ex-drinker (finding) [facility] Start: 04-02-2023 End: 06-24-2023 History of Social function [facility] Adolescent depressio n screening assessment 0 [facility] Start: 01-06-2022 Tobacco Comment only smoked for 3 months 60 years ago, 2 cigarettes a day [facility] Start: 10-15-2021 Alcohol Comment rare- on new years clive [facility] Start: 1940 Sex Assigned At Not on file [facility] Has the [employer], [employer], or [employer] threatened to shut off services in your home in past 12Mo No [facility] Do you belong to any clubs or organizations such as restorationism groups, unions, fraternal or athletic groups, or school groups? Yes [facility] Are you now , , , , never or living with a partner? [facility] How often to you hav e a drink containing alcohol? Never [facility] Do you feel stress - tense, restless, nervous, or anxious, or unable to sleep at night because your mind is troubled all the time - these days [OSQ] Not at all [facility] Clinical Notes 04-18-2020 to 06-24-2023 Otis Jett Anastacio, DO - 06/24/2023 4:20 PM EDTLenopk Jett Anastacio, DO - 05/25/2023 4:35 PM ESTSignificant Event - Otis Martinezalex, DO - 05/24/2023 6:08 PM ESTLenopk Martinezalex, DO - 05/24/2023 2:00 PM EST Note [...] Do you have a durable power of pharmacy messenger?: Yes Cognitive Screening Do you have trouble [...] year (around 06/23/2024). documented in this encounter [facility] 05-25-2023 History of Presen t illness Narrative Patient dropped off a urine to be tested documented in this encounter [facility] 05-24-2023 Progress note Formatting of t his note might be different from the original. She would only be 5, not 9 [facility] 05-24-2023 Miscellaneous Notes Formattin g of this note might be different from the original. She would only be 5, not 11 documented in this encounter [facility] 05-24-2023 History of Presen t illness Narrative [...] checks. She does have durable power of pharmacy messenger of healthcare and finance. She also has [...] done as well. documented in this encounter [facility] 04-02-2023 History of Presen t illness Narrative [...] nursing note reviewed. Exam conducted with a humidifier maintenance worker present (ES Moncada present). Neck: Vascular: No [...] orders for this visit: PMR (polymyalgia rheumatica) ([facility]) - Ambulatory referral to Pain Management ([facility]); [...] El 04/02/23 1303 documented in this encounter [facility] 05-24-2022 Note PROCEDURE: XR HIP RT 2 [...] authenticated by: CAMILO ARNOLD Date: 2022-05-24 19:59 [facility] 03-24-2021 Evaluation note Encounter Date Diagnosis Assessment Notes Mar, Skin rash (ICD-10 - R21) i think eczema, will do clobetasol she already has this. will continue on lotramin. she will call in a few days if not improved. [employer] Other 03-11-2021 NoteHNO ID: [id number] Author: Negro Pompa Service: ? Author Type: Physician Type: Progress Notes Filed: 05/30/2020 6:55 PM Note Text: [facility] [...] questions and concerns were addressed. Negro Pompa, [facility]01-28-2021 NotePatient Outreach (COOCC3) ANGELIKA MUIR ([id number]) 1940 F Date Time Provider Department 04/18/20 PENNY RIBEIRO COVALDO3 During your visit today, we recorded the following information about you: Allergies As of Date: 04/18/2020 Noted Allergy Reaction TAPE (ADHESIVE TAPE (ROSINS)) 06/28/2012 2 - Rash Date Reviewed: 01/09/2020 Reviewed by: Niru Cunningham - Fully Assessed Order(s):SARS-COVID VACCINE 1ST DOSE APPT [[id number]] Order #: [id number] FUTURE Prescriptions as of 04/18/2020 Sig: SERTRALINE [...] breast cancer [Z85.3] 01/10/2014 Encounter Status:Closed by TERRANCE, PRODUSER on 04/22/20[facility] Evaluation noteNo InformationNort [employer] Other Evaluation note* Diagnosis PMR (polymyalgia rheumatica) ([facility])- Primary Polymyalgia rheumatica Bilateral hip pain Pain in joint, pelvic region and thigh Confusion caused by a drug Drug-induced delirium documented [facility]* Diagnosis Bilateral hip pain- Primary Pain in joint, pelvic region and thigh documented [facility]* Diagnosis Abnormal kidney function- Primary Nonspecific abnormal results of kidney function study Hyperglycemia Other abnormal glucose Class 1 obesity due to excess calories with serious comorbidity and body mass index (BMI) of 31.0 to 31.9 in adult Memory impairment Memory loss documented in this encounter [facility] Center[facility] Financial SoftwareEvaluation note* Diagnosis Abnormal urinalysis- Primary Other nonspecific finding on examination of urine Abnormal kidney function Nonspecific abnormal results of kidney function study documented [facility]* Diagnosis Medicare annual wellness visit, subsequent- Primary Screening for depression documented [facility] this encounter [facility] general Narrative - Reported* Type Description Date Medical History hx of Low BP Medical History vertigo Medical History depression Surgical History CARDIAC LOOP RECORDER IMPLANT Surgical History BILATERAL HIP ARTHROPLASTY Surgical History BILATERAL [facility] JOINT ARTHROPLAST Y Surgical History TRIGGER RELEASE RIGHT RING FING ER Surgical History BILATRAL FOOT SURGERY Surgical History LEFT TOTAL SHOULDER X2 Hospitalization History see surgical hx [place] [employer] Other InstructionsNot on filedocumented in this encounter [facility] on filedocumented in this encounter [facility] SystemInstructionsNot on filedocumented in this encounter [facility] Summary Purpose Family History No Family [...] Assessments Note Patient: ANGELIKA MUIR MR N: [id number] Age: 78 years Sex: Female : 1940 Associated Diagnoses: None Author: Elbert Gleason MD Assessment Assessment Diagnosis: Osteoarthritis (PVQ49-AI M17.11, 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 Right TKA. Dr. Vickers. [...] Pain is currently described as intermittent but ibmexhrt-wy-pbthbn, particularly with activity. Symptoms have failed to respond to more conservative measures, and she now presents for surgical intervention. Please see below regarding the status of active medical conditions and assessment and plan for preoperative medical risk stratification. Medical Illnesses: 1. Osteoarthritis affecting (more content not included)... Note CLINICAL SUMMARY Please take this summary document to your follow up appointments. [facility] 02/02/19 09:32 [address] [place]. [address] PATIENT INFORMATION Name: ANGELIKA MUIR [address]: [address] [place] [id number] Age: 78 Years Phone: [phone] : 1940 12:00 MRN: [id number] Sex: Female Race: White Ethnicity: Not Hispan/Lat Admitted From: Clinic or [facility] Medical Service: Orthopedic Surgery Nurse Unit/Bed: (PR) 2N 0219-01 Admit Date: 01/30/2019 05:59 PCP: Eduardo Rose MD PHYSICIANS INVOLVED WITH CARE Attending Physicians: Rancho SIEGEL , Amrik Sutton - Orthopaedic Surg Admitting Physician: Rancho SIEGEL , Amrik Sutton - Orthopaedic Surg Primary Care Physician:Eduardo Rose MD,Internal Medicine, - Consults: Rosibel SIEGEL , Elbert Kim - Internal Medicine RAMÍREZ Rod (more content not included)... Note Patient: ANGELIKA MUIR MR N: [id number] Age: 78 years Sex: Female : 1940 [...] (more content not included)... Note HNO ID: [id number] Author: Cheryle Wilcox (Aa) Service: ? Author Type: Supervisor Publications Production Type: Anesthesia Procedure Notes Filed: 05/01/2020 3:33 PM Note Text: ANESTHESIOLOGY PROCEDURE NOTE Airway General Information Procedure Start Time/Medication Administration: 05/01/2020 3:28 PM Patient location during procedure: OR Timeout Performed Pre-procedure: timeout performed Consent Obtained: Yes Patient identity confirmed: arm band, care production team leader and patient Staffing Anesthesiologist: Ihsan Gamino CAA: Ankur Wilcox (Aa) Indications and Patient Condition Preoxygenated: yes Patient position: sniffing Indications for airway management: anesthesia anesthesia circuit Method: asleep Final Airway Details Final airway type: supraglottic airway Final Supraglottic Airway: IGEL Size 4 Seal Adequate: yes SIGNATURE: [place] Gonzales PATIENT NAME: Angelika Muir DATE: May 01, 2020 TIME: 3:33 PM CSN: [id number] Note HNO ID: [id number] Author: Ariana kaplan (Res) Victor Hugo Service: Urology Author Type: Resident Type: Brief Op Note Filed: 05/01/2020 4:09 PM Note Text: BRIEF OPERATIVE / PROCEDURE NOTE LOG ID: [id number] SURGERY/PROCEDURE DATE: 05/01/2020 INCISION/PROCEDURE START TIME: 3:28 PM INCISION CLOSE/PROCEDURE END TIME: 4:05 PM SURGEON(S)/PROCEDURALIST(S) AND CORPORATE DRIVER(S): Surgeon(s) and Role: * Negro Pompa - [...] 01, 2020 TIME: 4:07 PM PAGER/CONTACT #: [phone] (more content not included)... Hospital Course Note CLINICAL SUMMARY Please take this summary document to your follow up appointments. [facility] 02/02/19 09:32 [address] [place]. [address] PATIENT INFORMATION Name: ANGELIKA MUIR Address: [address] [place] [id number] Age: 78 Years Phone: [phone] : 1940 12:00 MRN: [id number] Sex: Female Race: White Ethnicity: Not Hispan/Lat Admitted From: Clinic or [facility] Medical Service: Orthopedic Surgery Nurse Unit/Bed: (CO) 2N 0219-01 Admit Date: 01/30/2019 05:59 PCP: RoseEduardo richardson MD PHYSICIANS INVOLVED WITH CARE Attending Physicians: Rancho SIEGEL , Amrik Sutton - Orthopaedic Surg Admitting Physician: Rancho SIEGEL , Amrik Sutton - Orthopaedic Surg Primary Care Physician:Eduardo Rose MD,Internal Medicine, - Consults: Rosibel SIEGEL , Elbert Kim - Internal Medicine RAMÍREZ Rod (more content not included)... Procedure Findings Note HNO ID: [id number] Author: Cheryle Wilcox (Aa) Service: ? Author Type: Supervisor Publications Production Type: Anesthesia Procedure Notes Filed: 05/01/2020 3:33 PM Note Text: ANESTHESIOLOGY PROCEDURE NOTE Airway General Information Procedure Start Time/Medication Administration: 05/01/2020 3:28 PM Patient location during procedure: OR Timeout Performed Pre-procedure: timeout performed Consent Obtained: Yes Patient identity confirmed: arm band, care production team leader and patient Staffing Anesthesiologist: Ihsan Gamino CAA: Ankur Wilcox (Aa) Indications and Patient Condition Preoxygenated: yes Patient position: sniffing Indications for airway management: anesthesia anesthesia circuit Method: asleep Final Airway Details Final airway type: supraglottic airway Final Supraglottic Airway: IGEL Size 4 Seal Adequate: yes SIGNATURE: AZ Gonzales PATIENT NAME: Angelika Muir DATE: May 01, 2020 TIME: 3:33 PM CSN: [id number] Note HNO ID: [id number] Author: Ariana kaplan (Martina) Victor [place] Service: Urology Author Type: Resident Type: Brief Op Note Filed: 05/01/2020 4:09 PM Note Text: BRIEF OPERATIVE / PROCEDURE NOTE LOG ID: [id number] SURGERY/PROCEDURE DATE: 05/01/2020 INCISION/PROCEDURE START TIME: 3:28 PM INCISION CLOSE/PROCEDURE END TIME: 4:05 PM SURGEON(S)/PROCEDURALIST(S) AND CORPORATE DRIVER(S): Surgeon(s) and Role: * Negro Pompa - [...] included)... Note Patient: ANGELIKA MUIR MR N: [id number] Age: 78 years Sex: Female : 1940 [...] Referral Specialty Diagnoses / Procedures Referred By Contac t Referred To Contact Diagnoses PMR (polymyalgia rheumatica) ([facility]) Veronica Chahal, PLASTER MIXER-READY TO WEAR DEPARTMENT MANAGER [address] [place] [address] Referral ID Status Reason Start Date Expiration Date V isits Requested Visits Authorized [id number] Pending Review 1 1 Specialty Diagnoses / Procedures Referred By Contac t Referred To Contact Pain Medicine Diagnoses PMR (polymyalgia rheumatica) ([facility]) Bilateral hip pain Veronica Chahal, PLASTER MIXER-READY TO WEAR DEPARTMENT MANAGER [address] [place] [address] [address] Referral ID Status Reason Start Date Expiration Date V isits Requested Visits Authorized [id number] Pending Review 04/02/2023 04/01/2024 1 1 Additional Source Comments INFORMATION SOURCE (unrecogn ized section and content) DATE CREATED AUTHOR 09/09/2017 [facility] DATE CREATED AUTHOR AUTHOR'S ORGANIZ ATION 09/15/2017 [facility] DATE CREATED AUTHOR AUTHOR'S ORGANIZ ATION 02/06/2019 [facility] DATE CREATED AUTHOR AUTHOR'S ORGANIZ ATION 11/22/2019 [facility] DATE CREATED AUTHOR AUTHOR'S ORGANIZ ATION 05/08/2020 [facility] DATE CREATED AUTHOR AUTHOR'S ORGANIZ ATION 04/05/2021 [facility] DATE CREATED AUTHOR AUTHOR'S ORGANIZ ATION 05/31/2022 [facility] DATE CREATED AUTHOR AUTHOR'S ORGANIZ ATION 09/21/2022 [facility] DATE CREATED AUTHOR AUTHOR'S ORGANIZ ATION 05/26/2023 [facility] DATE CREATED AUTHOR AUTHOR'S ORGANIZ ATION 07/31/2023 [facility] DATE CREATED AUTHOR AUTHOR'S ORGANIZ ATION 08/15/2023 [facility] REASON FOR VISIT (unrecogniz ed section and content) Reason Comments Osteoarthritis Pain management Reason Comments Memory Loss Reason Comments medicare annual wellness Care Teams (unrecognized sec tion and content) [employer] Relationship Specialty Start Date End Date Otis Chaves DO [address] [place] [address] PCP - General Family Medicine 10/03/21 [employer] Relationship Specialty Start Date End Date Otis Chaves DO [address] [place] [address] PCP - [facility] 10/03/21 Apple [employer] Relationship Specialty Start Date End Date Otis Chaves DO [address] [place] [address] PCP - [facility] 10/03/21 Apple [employer] Relationship Specialty Start Date End Date Otis Chaves DO [address], [place] [address] [facility] 10/03/21 Apple Thinner Relationship Specialty Start Date End Date Otis Chaves DO [address], [place] [address] PCP - [facility] 10/03/21 FOR RECORDS PERTAINING TO PATIENTS [...] BE BASED ON THE PRIMARY CLINICAL RECORDS. [employer] [facility]. provides no warranty or guarantee of the accuracy or completeness of information in this document.
--- NOTE | 2023-08-19 09:58 | PM.CN ---
Consult Note: HPI Data of Consult Patient: known to practice within the last 3 years Consult date: 07/12/23 Requesting Physician: Jamaica Garcia NP Primary Care Provider: FRANKI CHAVES Consult Narrative Reason for consult: Low back, lower extremity pain Narrative: 83yof who presents for assessment. continues to have worsening pain from back to bilateral lower extremities. mri reviewed, which is significant for multilevel degeneration and multiple levels of stenosis, worst at l3-4 and l4-5. she continues to engage in provider directed home exercise, which she has attempted for >6 weeks with minimal benefit. utilizes gabapentin. denies adverse med side effects. Recently underwent bilateral L3-4 TFESI and L4-5 TFESI providing moderate ongoing improvement. Pain 2/10 today in right groin, hx of bilateral hip replacements. cc:: CC: Jamaica Garcia NP Review of Systems ROS Status of ROS 10 or more systems reviewed and unremarkable except as noted in history and below Musculoskeletal Reports: joint pain PFSH PFSH Medical History Rheumatoid arthritis ?M06.9 - Rheumatoid arthritis, unspecified (ICD-10) H/O malignant neoplasm of breast ?Z85.3 - Personal history of malignant neoplasm of breast (ICD-10) Kidney stone ?N20.0 - Calculus of kidney (ICD-10) Smoker ?F17.200 - Nicotine dependence, unspecified, uncomplicated (ICD-10) Surgical History Status post total shoulder arthroplasty ?Z96.619 - Presence of unspecified artificial shoulder joint (ICD-10) H/O foot surgery ?Z98.890 - Other specified postprocedural states (ICD-10) H/O hand surgery ?Z98.890 - Other specified postprocedural states (ICD-10) S/P total knee arthroplasty ?Z96.659 - Presence of unspecified artificial knee joint (ICD-10) S/P total hip arthroplasty ?Z96.649 - Presence of unspecified artificial hip joint (ICD-10) H/O thumb surgery ?Z98.890 - Other specified postprocedural states (ICD-10) Hx of tonsillectomy ?Z90.89 - Acquired absence of other organs (ICD-10) Family History Other Lumbago Meds Home Medications and Allergies Home Medications ?Medication ?Instructions ?Recorded ?Confirmed ?Type gabapentin 100 mg capsule 100 mg PO TID 06/23/23 08/09/23 History Allergies Allergy/AdvReac Type Severity Reaction Status Date / Time No Known Drug Allergies Allergy Verified 08/09/23 11:11 Exam Constitutional Documenting provider has reviewed patient's vital signs: yes Common normals: no apparent distress, oriented x3, healthy appearing, alert and well nourished General appearance: cooperative HENMT Common normals: normocephalic, hearing grossly normal bilaterally and moist oral mucous membranes Head and scalp: normocephalic Eye Common normals: PERRL Pupil: PERRL Neck & C-Spine Common normals: full ROM General: normal visual inspection Chest Common normals: inspection of chest normal Respiratory Common normals: normal respiratory effort, no retractions and no use of accessory muscles Back & Pelvis Thoracic spine/upper back: normal to inspection Lumbar spine/lower back: normal to inspection, ROM limited and straight leg raise negative bilaterally Sacroiliac joints: SI joints normal Extremity Other: pain in right groin with internal log roll Neuro Common normals: oriented x3, CN's II-XII intact bilaterally, moves all extremities, no focal motor deficits, no sensory deficits noted and deep tendon reflexes 2+ bilaterally Sensorium/orientation: alert Motor exam: strength 5/5 throughout and no movement abnormalities noted Psych Common normals: mental status grossly normal, thought process normal, cooperative, affect normal, speech normal and activity/motor behavior normal Speech: normal speech Thought process: normal thought process Assessment and Plan Assessment and Plan (1) Lumbar stenosis with neurogenic claudication: (2) Lumbar spondylosis: (3) Right hip pain: Assessment and Plan: declining further workup (4) Confusion: Assessment and Plan: patient reports hx of , has been calling our office at all hours to the day/night and leaving voicemails. Daughter assists in coordinating patients care and is her primary contact. Patient alone today, drove herself, appointment was to be next however since the patient was here we adjusted her appointment time. we will call PCP and daughter to update them. Plan resubmit for transdermal therapeutics cream 6a TID to affected areas continue medications through PCP f/u 3 months, sooner if needed
== END 2023-08-19 09:35 | disposition home or self-care (01) ==
LOC: PM 09:35
PROVIDERS: PCP Family Medicine; Visit Provider Nurse Practitioner
DX: M48.062 Spinal stenosis, lumbar region with neurogenic claudication (principal); M47.816 Spondylosis without myelopathy or radiculopathy, lumbar region; M25.551 Pain in right hip; R41.0 Disorientation, unspecified
CPT/HCPCS: G0463

== ENCOUNTER 2023-11-01 17:45 | Emergency (ER) | payer MEDICARE, OTHER, SELFPAY ==
[2023-11-01 18:00] VITALS: BP 141/84; PULSE 102; TEMP 36.8; O2SAT 99; BMI 23.5
--- OUTSIDE RECORDS SUMMARY | 2023-11-01 18:03 | XMS_ITS | CCD ---
Author Organization [facility] Care Team Providers Care Engraver Jewelry Name Role Phone JOSE LUIS LIZAMA Y Unavailable Unavailable SELF, SELF Unavailable Unavailable EDUARDO ROSE P Unavailable Unavailable LIZAMA, JOSE LUIS Y Unavailable Unavailable LIZAMA, JOSE LUIS Y Unavailable Unavailable EDUARDO ROSE P Unavailable Unavailable ANKUR FRANCE Unavailable Unavailable ANKUR FRANCE Unavailable Unavailable ROSE EDUARDO Unavailable Unavailable ROSE, EDUARDO Unavailable Unavailable [...] Cheng Attending Unavailable Gennaro Cheng Admitting Unavailable Schwbarbarar, Yolanda E Primary Care Unavailable Otis Chaves DO Primary Care Provider OTIS CHAVES Referring Unavailable OTIS CHAVES Primary Care Unavailable Gimichael SIEGEL, Tony Rodríguez Attending Unavailable Gimarlaitis , Tony Rodríguez Attending Unavailable Chelsie SIEGEL, Tony Rodríguez Attending Unavailable Chelsie SIEGEL, Andmare Rodríguez Attending Unavailable Chelsie SIEGEL, Andmare Rodríguez Attending Unavailable Chelsie SIEGEL, Tony Rodríguez Attending Unavailable MAGNO KO Attending Unavailable OTIS CHAVES Referring Unavailable FURLONG, OTIS G Attending Unavailable FURLONG, OTIS G Referring Unavailable FURLONG, OTIS G Primary Care Unavailable FURLONG, OTIS G Attending Unavailable FURLONG, OTIS G Referring Unavailable FURLONG, OTIS G Primary Care Unavailable FURLONG, OTIS G Referring Unavailable FURLONG, OTIS G Primary Care Unavailable FURLONG, OTIS G Attending Unavailable FURLONG, OTIS G Referring Unavailable FURLONG, OTIS G Primary Care Unavailable FURLONG, OTIS G Attending Unavailable FURLONG, OTIS G Referring Unavailable FURLONG, OTIS G Primary Care Unavailable VERONICA CHAHAL Attending Unavailable FURLONG, OTIS G Referring Unavailable FURLONG, OTIS G Primary Care Unavailable Allergies Allergy Classification Reported Allergen(s) Allergy Type Date of Onset Reaction(s) Facility (1 source) 61323,00; Translations: [38786,] Propensity to adverse reactions (disorder) 9 [facility] (7 sources) Adhesive agent; Translations: [ADHESIVE] Propensity to adverse reactions to drug 3 Rash [facility] (7 sources) Fludrocortisone ; Translations: [FLUDROCORTISON E] Drug Allergy 2 Other (See Comments) [facility] (7 sources) Other; Translations: [OTHER] Propensity to adverse reactions 6 [facility] Medications Current Medications Medication Drug Class(es) [...] 50 mg capsule Indications: PMR (polymyalgia rheumatica) ([facility]) Take 1 capsule (50 mg [...] disease (6 sources) Atherosclerotic heart disease of [place] coronary artery without angina pectoris; Translations: [Coronary atherosclerosis] Onset: 01-13-2012 11-28-2021 Chronic Genitourinary symptoms and ill-defined conditions (10 sources) Mixed urinary incontinence; Translations: [Mixed incontinence] Onset: 11-28-2021 11-28-2021 Chronic Osteoarthritis (13 sources) Osteoarthritis of right knee joint; Translations: [Unilateral primary osteoarthritis, right knee] Onset: 04-02-2023 Chronic Other aftercare (1 source) 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; Translations: [OTH GROUP HOME CURRENT DRUG THERAPY] Onset: 05-28-2022 Episodic Other [...] kidney and ureter, unspecified] 05-24-2023 Episodic Other ear and sense organ disorders (5 sources) Sensorineural hearing loss, bilateral; Translations: [Sensorineural hearing loss, bilateral] Onset: 11-28-2021 11-28-2021 Chronic Other nervous system disorders (1 source) Other symptoms and signs involving cognitive functions and awareness; Translations: [Other symptoms and signs involving cognitive functions and awareness] Onset: 10-26-2023 Episodic Other non-traumatic joint disorders (2 sources) [...] Memory impairment; Translations: [Other amnesia] 05-24-2023 Episodic Screening or history of mental [...] encounter] Onset: 12-05-2021 Resolved: 03-11-2022 03-11-2022 Episodic Diabetes mellitus without complication (3 sources) Hyperglycemia; Translations: [Hyperglycemia, unspecified] Onset: 05-24-2023 05-24-2023 Episodic Essential hypertension (11 sources) Essential hypertension; [...] 11-27-2021 11-27-2021 Episodic Other aftercare (1 source) skilled nursing (current) use of aspirin; Translations: [GROUP HOME (CURRENT) USE OF ASPIRIN] Onset: 11-06-2016 Episodic [...] Onset: 11-28-2021 11-28-2021 Episodic Other diseases of kidney and ureters (2 sources) Disorder of kidney and ureter, unspecified; Translations: [Disorder of kidney and ureter, unspecified] Onset: 05-24-2023 Episodic Other diseases of veins and lymphatics [...] of pericardium, unspecified] Onset: 01-08-2012 11-28-2021 Episodic Residual codes; unclassified (2 sources) Other amnesia; Translations: [Other amnesia] Onset: 05-24-2023 Episodic Residual codes; unclassified (1 source) Memory loss Onset: 05-24-2023 Episodic Rheumatoid arthritis and related disease (5 [...] Demetrio Huitron on 05-25-2023 Appearance (U) cloudy [facility] External Poct Urine Bilirubin Moderate [facility] External Poct Urine Blood Negative [facility] External Poct Urine Color orange [facility] External Poct Urine Glucose Negative [facility] External Poct Urine Ketones Trace [facility] External Poct Urine Leukocyte Esterase Negative [facility] External Poct Urine Nitrite Negative [facility] External Poct Urine Ph 5.5 [facility] External Poct Urine Protein Trace [facility] External Poct Urine Specific [place] 1.030 [facility] External Poct Urine Urobilinogen 0.2 [facility] COMPREHENSIVE METABOLIC PANE Iam 05-24-2023 Albumin [Mass/Vol] 3.6 g/dL Normal 3.2-5.3 [facility] Comment on above: Performed By: #### KRISTY, 6-3 #### [facility] ([id number]) [address], [address] [place] [address] ALP [Catalytic activity/Vol] 103 U/L Normal 39-130 [facility] Comment on above: Performed By: #### CMP, 6-3 #### [facility] ([id number]) [address], [address] [place] [address] ALT [Catalytic activity/Vol] 10 U/L Normal 0-31 [facility] Comment on above: Performed By: #### KRISTY, 3015-3 #### [facility] ([id number]) [address], [address] [place] [address] Anion gap [Moles/Vol] 9 mmol/L Normal 5-15 [facility] Comment on above: Performed By: #### CMP, 3015-3 #### [facility] ([id number]) [address], [address] [place] [address] AST [Catalytic activity/Vol] 16 U/L Normal 0-41 [facility] Comment on above: Performed By: #### KRISTY, 6-3 #### [facility] ([id number]) [address], [address] [place] [address] Bilirubin [Mass/Vol] 0.4 mg/dL Normal 0.3-1.2 [facility] Comment on above: Performed By: #### CMP, 6-3 #### [facility] ([id number]) [address], [address] [place] [address] Calcium [Mass/Vol] 9.5 mg/dL Normal 8.5-10.5 [facility] Comment on above: Performed By: #### KRISTY, 6-3 #### [facility] ([id number]) [address], [address] [place] [address] Chloride [Moles/Vol] 105 mmol/L Normal 98-109 [facility] Comment on above: Performed By: #### KRISTY, 6-3 #### [facility] ([id number]) [address], [address] [place] [address] CO2 [Moles/Vol] 31 mmol/L Normal 22-32 [facility] Comment on above: Performed By: #### KRISTY, 3015-3 #### [facility] ([id number]) [address], [address] [place] [address] Creatinine [Mass/Vol] 0.99 mg/dL Normal 0.40-1.00 [facility] Comment on above: Result Comment: METHOD TRACEABLE TO IDMS STANDARD Performed By: #### C MELO, 3015-3 #### [facility] ([id number]) [address], [address] [place] [address] GFR/1.73 sq M.predicted among non-blacks MDRD (S/P/Bld) [Vol rate/Area] 56 mL/min/{1.73_m2} Low >59 [facility] Comment on above: Result Comment: Reported eGFR is based on the CKD-EPI 2020 equation that does not use a race coefficient. Performed By: #### C MELO, 3015-3 #### [facility] ([id number]) [address], [address] [place] [address] Glucose [Mass/Vol] 103 mg/dL High 65-99 [facility] Comment on above: Performed By: #### KRISTY, 3015-3 #### [facility] ([id number]) [address], [address] [place] [address] Potassium [Moles/Vol] 3.9 mmol/L Normal 3.5-5.0 [facility] Comment on above: Performed By: #### KRISTY, 3015-3 #### [facility] ([id number]) [address], [address] [place] [address] Protein [Mass/Vol] 7.1 g/dL Normal 6.0-8.0 [facility] Comment on above: Performed By: #### KRISTY, 3016-3 #### [facility] ([id number]) [address], [address] [place] [address] Sodium [Moles/Vol] 145 mmol/L Normal 134-146 [facility] Comment on above: Performed By: #### KRISTY, 3016-3 #### [facility] ([id number]) [address], [address] [place] [address] Urea nitrogen [Mass/Vol] 18 mg/dL Normal 5-27 [facility] Comment on above: Performed By: #### KRISTY, 3016-3 #### [facility] ([id number]) [address], [address] [place] [address] Comprehensive metabolic pane iam 05-24-2023 Albumin [Mass/Vol] 3.6 g/dL 3.2 - 5.3 g/dL [facility] ALP [Catalytic activity/Vol] 103 U/L 39 - 130 U/L [facility] ALT No additional P-5'-P [Catalytic activity/Vol] 10 U/L 0 - 31 U/L [facility] Anion gap [Moles/Vol] 9 mmol/L 5 - 15 mmol/L [facility] AST [Catalytic activity/Vol] 16 U/L 0 - 41 U/L [facility] Bilirubin [Mass/Vol] 0.4 mg/dL 0.3 - 1.2 mg/dL [facility] Calcium [Mass/Vol] 9.5 mg/dL 8.5 - 10.5 mg/dL [facility] Chloride [Moles/Vol] 105 mmol/L 98 - 109 mmol/L [facility] CO2 [Moles/Vol] 31 mmol/L 22 - 32 mmol/L [facility] Creatinine [Mass/Vol] 0.99 mg/dL 0.40 - 1.00 mg/dL [facility] Comment on above: METHOD TRACEABLE TO IDMS STANDARD eGFR (CKD-EPI)non-rac e dependent 56 Low - PINF [facility] Comment on above: Reported eGFR is based on the CKD-EPI 2020 equation that does not use a race coefficient. Glucose [Mass/Vol] 103 mg/dL High 65 - 99 mg/dL [facility] Interpretation and review of laboratory results Abnormal [facility] Potassium [Moles/Vol] 3.9 mmol/L 3.5 - 5.0 mmol/L [facility] Protein [Mass/Vol] 7.1 g/dL 6.0 - 8.0 g/dL [facility] Sodium [Moles/Vol] 145 mmol/L 134 - 146 mmol/L [facility] Urea nitrogen [Mass/Vol] 18 mg/dL 5 - 27 mg/dL [facility] HGB A1C (GLYCO-HGB)on 2023 Glucose [Mass/Vol] 126 mg/dL Normal [facility] Comment on above: Performed By: #### CMP, 3016-3 #### [facility] ([id number]) [facility], [address] [place] [address] HbA1c (Bld) [Mass fraction] 6.0 % High 4.4-5.6 [facility] Comment on above: Result Comment: NOTE ADA Guidelines Result HgbA1c Normal : less than 5.7 % Prediabetes : 5.7 % to 6.4 % Diabetes : > 6.4 % Use with caution in patients with abnormal hemoglobin variants as the half-life of red blood cells and in vivo glycation rates are affected. Performed By: #### C MELO, 3016-3 #### [facility] ([id number]) [address] [facility] [place] [address] TSHon 05-24-2023 TSH Qn 2.13 m[IU]/L [facility] TSH Qnon 05-24-2023 [facility] TSH 2.13 uIU/mL Normal 0.49-4.67 [facility] Comment on above: Performed By: #### CMP, 3016-3 #### [facility] ([id number]) [address], [address] [place] [address] TAO Antinuclear Antibodieson 09-07-2022 Antinuclear Abs, IFA Positive Critically abnormal . [facility] Comment on above: Result Comment: Negative <1:80 Borderline 1:80 Positive >1:80 Performed By: #### T 4F, TSH3, CRP, CMP, ESR, CBC #### [facility] [address] Homogeneous Pattern 1:160 High . [facility] Comment on above: Result Comment: ICAP nomenclature: AC-1 Performed By: #### T 4F, TSH3, CRP, CMP, ESR, CBC #### [facility] [address] Note 1 Normal . [facility] Comment on above: Result Comment: For [...] titers Nucleosomes, Histones Drug-induced SLE Speckled Sm, EDUCATIONAL SPECIALIST, SCL-70, SLE,MCTD,PSS (diffuse form), SS-A/SS-B Sjogrens Nucleolar SCL-70, PM-1/SCL High titers Scleroderma, PM/DM Centromere Centromere PSS (limited form) w/Crest syndrome variable Nuclear Dot [id number] Primary Biliary Cirrhosis Nuclear GP210, Primary Biliary Cirrhosis Membrane vickey A,B,C Performed at: - [facility] [address] [id number] Production Supply Equipment Tender: Naldo Valdez PhD, Phone: [phone] PERFORMED BY: [facility] [address] [place] [address] PATHOLOGIST SALES OPERATIONS DIRECTOR JORGE LUIS RUELAS M.D. Performed By: #### T 4F, TSH3, CRP, CMP, ESR, CBC #### [facility] [address] [place] [address] C-Reactive Proteinon 023 C-Reactive Protein 0.8 mg/dL High 0.0-0.5 [facility] Comment on above: Performed By: #### T4F, TSH3, CRP, CMP, ESR, CBC #### [address] Complete Blood Count Auto Di ffon 09-07-2022 Basophils (Bld) [#/Vol] 0.1 10*3/uL Normal 0.0-0.2 [facility] Comment on above: Performed By: #### T4F, TSH3, CRP, CMP, ESR, CBC #### [address] Basophils/100 WBC (Bld) 1.0 % Normal . [facility] Comment on above: Performed By: #### T4F, TSH3, CRP, CMP, ESR, CBC #### [address] Eosinophils (Bld) [#/Vol] 0.1 10*3/uL Normal 0.0-0.45 [facility] Comment on above: Performed By: #### T4F, TSH3, CRP, CMP, ESR, CBC #### [address] Eosinophils/100 WBC (Bld) 1.0 % Normal . [facility] Comment on above: Performed By: #### T4F, TSH3, CRP, CMP, ESR, CBC #### [address] Erythrocyte distribution width (RBC) [Ratio] 15.0 % Normal 11.9-15.3 [facility] Comment on above: Performed By: #### T4F, TSH3, CRP, CMP, ESR, CBC #### [address] Hematocrit (Bld) [Volume fraction] 36.3 % Normal 34.0-46.4 [facility] Comment on above: Performed By: #### T4F, TSH3, CRP, CMP, ESR, CBC #### [address] Hemoglobin (Bld) [Mass/Vol] 11.8 g/dL Normal 11.8-15.4 [facility] Comment on above: Performed By: #### T4F, TSH3, CRP, CMP, ESR, CBC #### [address] Lymphocytes (Bld) [#/Vol] 1.4 10*3/uL Normal 1.00-4.8 [facility] Comment on above: Performed By: #### T4F, TSH3, CRP, CMP, ESR, CBC #### [address] Lymphocytes/100 WBC (Bld) 20.9 % Normal . [facility] Comment on above: Performed By: #### T4F, TSH3, CRP, CMP, ESR, CBC #### [address] MCH (RBC) [Entitic mass] 28.9 pg Normal 24.7-34.3 [facility] Comment on above: Performed By: #### T4F, TSH3, CRP, CMP, ESR, CBC #### [address] MCV (RBC) [Entitic vol] 88.4 fL Normal 80-100 [facility] Comment on above: Performed By: #### T4F, TSH3, CRP, CMP, ESR, CBC #### [address] Mean Corpuscular HGB Conc 32.7 g/dL Normal 32.0-35.0 [facility] Comment on above: Performed By: #### T4F, TSH3, CRP, CMP, ESR, CBC #### [address] Monocytes (Bld) [#/Vol] 0.6 10*3/uL Normal 0.0-0.8 [facility] Comment on above: Performed By: #### T4F, TSH3, CRP, CMP, ESR, CBC #### [address] Monocytes/100 WBC (Bld) 9.2 % Normal . [facility] Comment on above: Performed By: #### T4F, TSH3, CRP, CMP, ESR, CBC #### [address] Neutrophils (Bld) [#/Vol] 4.4 10*3/uL Normal 1.8-7.7 [facility] Comment on above: Performed By: #### T4F, TSH3, CRP, CMP, ESR, CBC #### [address] Neutrophils/100 WBC (Bld) 67.9 % Normal . [facility] Comment on above: Performed By: #### T4F, TSH3, CRP, CMP, ESR, CBC #### [address] NRBC% 0.1 /100{WBC} Normal 0-0.5 [facility] Comment on above: Performed By: #### T4F, TSH3, CRP, CMP, ESR, CBC #### [address] Platelet mean volume (Bld) [Entitic vol] 8.8 fL Normal 6.3-10.7 [facility] Comment on above: Performed By: #### T4F, TSH3, CRP, CMP, ESR, CBC #### [place] [address] [place] Platelets (Bld) [#/Vol] 272 10*3/uL Normal 150-450 [facility] Comment on above: Performed By: #### T4F, TSH3, CRP, CMP, ESR, CBC #### [place] [address] [place] RBC (Bld) [#/Vol] 4.11 10*6/uL Normal 3.60-5.00 [facility] Comment on above: Performed By: #### T4F, TSH3, CRP, CMP, ESR, CBC #### [address] WBC (Bld) [#/Vol] 6.5 10*3/uL Normal 3.8-11.6 [facility] Comment on above: Performed By: #### T4F, TSH3, CRP, CMP, ESR, CBC #### [address] Comprehensive Metabolic Pane iam 09-07-2022 Albumin [Mass/Vol] 3.7 g/dL Normal 3.5-5.7 [facility] Comment on above: Performed By: #### T4F, TSH3, CRP, CMP, ESR, CBC #### [address] Albumin/Globulin [Mass ratio] 1.4 {ratio} Normal [facility] Comment on above: Performed By: #### T4F, TSH3, CRP, CMP, ESR, CBC #### [address] ALP [Catalytic activity/Vol] 83 U/L Normal 34-104 [facility] Comment on above: Performed By: #### T4F, TSH3, CRP, CMP, ESR, CBC #### [address] ALT [Catalytic activity/Vol] 9 U/L Normal 7-52 [facility] Comment on above: Performed By: #### T4F, TSH3, CRP, CMP, ESR, CBC #### [address] Anion gap [Moles/Vol] 11.9 mmol/L Normal 6.0-15.0 [facility] Comment on above: Performed By: #### T4F, TSH3, CRP, CMP, ESR, CBC #### [address] AST [Catalytic activity/Vol] 12 U/L Low 13-39 [facility] Comment on above: Performed By: #### T4F, TSH3, CRP, CMP, ESR, CBC #### [address] Bilirubin [Mass/Vol] 0.4 mg/dL Normal 0.3-1.0 [facility] Comment on above: Performed By: #### T4F, TSH3, CRP, CMP, ESR, CBC #### [address] Calcium [Mass/Vol] 9.0 mg/dL Normal 8.6-10.3 [facility] Comment on above: Performed By: #### T4F, TSH3, CRP, CMP, ESR, CBC #### [address] Chloride [Moles/Vol] 105 mmol/L Normal 98-107 [facility] Comment on above: Performed By: #### T4F, TSH3, CRP, CMP, ESR, CBC #### [address] CO2 [Moles/Vol] 30.4 mmol/L Normal 21.0-31.0 [facility] Comment on above: Performed By: #### T4F, TSH3, CRP, CMP, ESR, CBC #### [address] Creatinine [Mass/Vol] 0.92 mg/dL Normal 0.60-1.20 [facility] Comment on above: Performed By: #### T4F, TSH3, CRP, CMP, ESR, CBC #### [address] GFR/1.73 sq M.predicted MDRD (S/P/Bld) [Vol rate/Area] mL/min/{1.73_m2} [facility] Comment on above: Performed By: #### T4F, TSH3, CRP, CMP, ESR, CBC #### [address] Globulin (S) [Mass/Vol] 2.6 g/dL Normal [facility] Comment on above: Performed By: #### T4F, TSH3, CRP, CMP, ESR, CBC #### [address] Glucose [Mass/Vol] 92 mg/dL Normal 70-100 [facility] Comment on above: Result Comment: Random Glucose Reference Range is dependent on time and content of last meal. Glucose of more than 200 mg/dL in a nonstressed, ambulatory subject supports the diagnosis of Diabetes Mellitus. ADA recommended reference range Performed By: #### T 4F, TSH3, CRP, CMP, ESR, CBC #### [address] Potassium [Moles/Vol] 4.3 mmol/L Normal 3.5-5.1 [facility] Comment on above: Performed By: #### T4F, TSH3, CRP, CMP, ESR, CBC #### [address] Protein [Mass/Vol] 6.3 g/dL Low 6.4-8.9 [facility] Comment on above: Performed By: #### T4F, TSH3, CRP, CMP, ESR, CBC #### [address] Sodium [Moles/Vol] 143 mmol/L Normal 136-145 [facility] Comment on above: Performed By: #### T4F, TSH3, CRP, CMP, ESR, CBC #### [address] Urea nitrogen [Mass/Vol] 21 mg/dL Normal 7-25 [facility] Comment on above: Performed By: #### T4F, TSH3, CRP, CMP, ESR, CBC #### [address] Dipstick and Microscopicon 0 09-07-2022 Appearance (U) Cloudy Critically abnormal Clear [facility] Comment on above: Order Comment: Name Collection Type:: Cl marcie-Voided Midstream Performed By: #### S PE, UPE RAND, VITO SERUM, VITO,URINE #### [facility] , #### CUU, ADDONUAPLUS #### [address] Bacteria,Urine 4+ High None Seen [facility] Comment on above: Order Comment: Name Collection Type:: Cl marcie-Voided Midstream Performed By: #### S PE, UPE RAND, VITO SERUM, VITO,URINE #### [facility] , #### CUU, ADDONUAPLUS #### [facility] [address] [place] [address] [place] Bilirubin,Urine Negative Normal Negative [facility] Comment on above: Order Comment: Name Collection Type:: Cl marcie-Voided Midstream Performed By: #### S PE, UPE RAND, VITO SERUM, VITO,URINE #### [facility] , #### CUU, ADDONUAPLUS #### [facility] [address] [place] [address] [place] Color (U) Yellow Normal Yellow [facility] Comment on above: Order Comment: Name Collection Type:: Cl marcie-Voided Midstream Performed By: #### S PE, UPE RAND, VITO SERUM, VITO,URINE #### [facility] , #### CUU, ADDONUAPLUS #### [facility] [address] [place] [address] [place] Glucose Ql (U) Normal Normal Normal [facility] Comment on above: Order Comment: Name Collection Type:: Cl marcie-Voided Midstream Performed By: #### S PE, UPE RAND, VITO SERUM, VITO,URINE #### [facility] , #### CUU, ADDONUAPLUS #### [facility] [address] [place] [address] [place] Hyaline Casts,Urine 0-8 Normal 0-8 [facility] Comment on above: Order Comment: Name Collection Type:: Cl marcie-Voided Midstream Result Comment: PERF ORMED BY: [place] [address] PATHOLOGIST SALES OPERATIONS DIRECTOR JORGE LUIS RUELAS M.D. Performed By: #### S PE, UPE RAND, VITO SERUM, VITO,URINE #### [facility] , #### CUU, ADDONUAPLUS #### [facility] [address] [place] [address] Ketones Ql (U) Trace High Negative [facility] Comment on above: Order Comment: Name Collection Type:: Cl marcie-Voided Midstream Performed By: #### S PE, UPE RAND, VITO SERUM, VITO,URINE #### [facility] , #### CUU, ADDONUAPLUS #### [facility] [address] [place] [address] Leukocyte esterase Test strip Ql (U) 1+ High Negative [facility] Comment on above: Order Comment: Name Collection Type:: Cl marcie-Voided Midstream Performed By: #### S PE, UPE RAND, VITO SERUM, VITO,URINE #### [facility] , #### CUU, ADDONUAPLUS #### [facility] [address] [place] [address] Nitrite,Urine Positive High Negative [facility] Comment on above: Order Comment: Name Collection Type:: Cl marcie-Voided Midstream Performed By: #### S PE, UPE RAND, VITO SERUM, VITO,URINE #### [facility] , #### CUU, ADDONUAPLUS #### [facility] [address] [place] [address] Occult Blood,Urine Negative Normal Negative [facility] Comment on above: Order Comment: Name Collection Type:: Cl marcie-Voided Midstream Performed By: #### S PE, UPE RAND, VITO SERUM, VITO,URINE #### [facility] , #### CUU, ADDONUAPLUS #### [facility] [address] [place] [address] pH (U) 5.5 [pH] Normal 5.0-9.0 [facility] Comment on above: Order Comment: Name Collection Type:: Cl marcie-Voided Midstream Performed By: #### S PE, UPE RAND, VITO SERUM, VITO,URINE #### [facility] , #### CUU, ADDONUAPLUS #### [facility] [address] [place] [address] Protein,Urine Negative Normal Negative [facility] Comment on above: Order Comment: Name Collection Type:: Cl marcie-Voided Midstream Performed By: #### S PE, UPE RAND, VITO SERUM, VITO,URINE #### [facility] , #### CUU, ADDONUAPLUS #### [facility] [address] [place] [address] RBC,Urine 3-4 Normal 0-4 [facility] Comment on above: Order Comment: Name Collection Type:: Cl marcie-Voided Midstream Performed By: #### S PE, UPE RAND, VITO SERUM, VITO,URINE #### [facility] , #### CUU, ADDONUAPLUS #### [address] Specificy [place],Urine 1.027 Normal 1.001-1.03 0 [facility] Comment on above: Order Comment: Name Collection Type:: Cl marcie-Voided Midstream Performed By: #### S PE, UPE RAND, VITO SERUM, VITO,URINE #### [facility] , #### CUU, ADDONUAPLUS #### [facility] [address] [place] [address] Squamous Epithelial Cell,Urine 5-9 High 0-2 [facility] Comment on above: Order Comment: Name Collection Type:: Cl marcie-Voided Midstream Performed By: #### S PE, UPE RAND, VITO SERUM, VITO,URINE #### [facility] , #### CUU, ADDONUAPLUS #### [facility] [address] [place] [address] Urobilinogen,Uri ne Normal Normal Normal [facility] Comment on above: Order Comment: Name Collection Type:: Cl marcie-Voided Midstream Performed By: #### S PE, UPE RAND, VITO SERUM, VITO,URINE #### [facility] , #### CUU, ADDONUAPLUS #### [facility] [address] [place] [address] WBC,Urine 5-9 High 0-4 [facility] Comment on above: Order Comment: Name Collection Type:: Cl marcie-Voided Midstream Performed By: #### S PE, UPE RAND, VITO SERUM, VITO,URINE #### [facility] , #### CUU, ADDONUAPLUS #### [facility] [address] [place] [address] Erythrocyte Sedimentation Ra trent 09-07-2022 ESR (Bld) [Velocity] 63 mm/h High 0-29 [facility] Comment on above: Result Comment: PERFORMED BY: [place] [address] PATHOLOGIST SALES OPERATIONS DIRECTOR JORGE LUIS RUELAS M.D. Performed By: #### T 4F, TSH3, CRP, CMP, ESR, CBC #### [address] Free T4 (Free Thyroxine)on 0 09-07-2022 Free T4 [Mass/Vol] 0.96 ng/dL Normal 0.61-1.12 [facility] Comment on above: Performed By: #### T4F, TSH3, CRP, CMP, ESR, CBC #### [facility] [address] [place] [address] [place] Immunofixation, (VITO), Urine on 09-07-2022 Immunofixation, (VITO), Urine Normal . [facility] Comment on above: Result Comment: No monoclonality detecte d. Performed at: [facility] [address] [id number] Production Supply Equipment Tender: Naldo Valdez PhD, Phone: [phone] Performed By: #### T 4F, TSH3, CRP, CMP, ESR, CBC #### [facility] [address] [place] [address] [place] Immunofixation,Serumon 09-07 Immunofixation, Serum Normal . [facility] Comment on above: Result Comment: No monoclonality detecte d. Performed By: #### S PE, UPE RAND, VITO SERUM, VITO,URINE #### [facility] , #### CUU, ADDONUAPLUS #### [facility] [address] Immunoglobulin A, Serum 107 mg/dL Normal 64-422 [facility] Comment on above: Performed By: #### SPE, UPE RAND, VITO SE RUM, VITO,URINE #### [facility] , #### CUU, ADDONUAPLUS #### [address] Immunoglobulin G 972 mg/dL Normal 586-1602 [facility] Comment on above: Performed By: #### SPE, UPE RAND, VITO SE RUM, VITO,URINE #### [facility] , #### CUU, ADDONUAPLUS #### [facility] [address] [place] [address] [place] Immunoglobulin M, Serum 348 mg/dL High 26-217 [facility] Comment on above: Result Comment: Performed at: [address] [id number] Production Supply Equipment Tender: Naldo Valdez PhD, Phone: [phone] Performed By: #### S PE, UPE RAND, VITO SERUM, VITO,URINE #### [facility] , #### CUU, ADDONUAPLUS #### [place] [address] [place] Protein Electro, Random Urin chester 09-07-2022 Albumin, Urine 15.7 % Normal . [facility] Comment on above: Performed By: #### T4F, TSH3, CRP, CMP, ESR, CBC #### [facility] [address] [id number] , Urine 1.3 % Normal . [facility] Comment on above: Performed By: #### T4F, TSH3, CRP, CMP, ESR, CBC #### [address] Bbkgn-2-Uxpzyspc , Urine 17.8 % Normal . [facility] Comment on above: Performed By: #### T4F, TSH3, CRP, CMP, ESR, CBC #### [address] Beta Globulin, Urine 36.1 % Normal . [facility] Comment on above: Performed By: #### T4F, TSH3, CRP, CMP, ESR, CBC #### [address] Gamma Globulin, Urine 29.0 % Normal . [facility] Comment on above: Performed By: #### T4F, TSH3, CRP, CMP, ESR, CBC #### [address] M-Virgil % Not Observed Normal Not Observed [facility] Comment on above: Performed By: #### T4F, TSH3, CRP, CMP, ESR, CBC #### [address] Please Note: Normal . [facility] Comment on above: Result Comment: Protein electrophoresis scan will follow via computer, mail, or brass chaser delivery. PERFORMED BY: [place] [address] PATHOLOGIST SALES OPERATIONS DIRECTOR JORGE LUIS RUELAS M.D. Performed By: #### T 4F, TSH3, CRP, CMP, ESR, CBC #### [address] Protein (U) [Mass/Vol] 27.7 mg/dL Normal Not Estab. [facility] Comment on above: Performed By: #### T4F, TSH3, CRP, CMP, ESR, CBC #### [address] Protein Electrophoresis, Ser umon 09-07-2022 Albumin [Mass/Vol] 3.3 g/dL Normal 2.9-4.4 [facility] Comment on above: Performed By: #### SPE, UPE RAND, VITO SE RUM, VITO,URINE #### [facility] , #### CUU, ADDONUAPLUS #### [address] Albumin/Globulin [Mass ratio] 1.1 {ratio} Normal 0.7-1.7 [facility] Comment on above: Performed By: #### SPE, UPE RAND, VITO SE RUM, VITO,URINE #### [facility] , #### CUU, ADDONUAPLUS #### [address] Jueri-6-Zwuonuqy 0.3 g/dL Normal 0.0-0.4 [facility] Comment on above: Performed By: #### SPE, UPE RAND, VITO SE RUM, VITO,URINE #### [facility] , #### CUU, ADDONUAPLUS #### [facility] [address] [place] [address] [place] Ocmlu-4-Hiyuxmho 0.9 g/dL Normal 0.4-1.0 [facility] Comment on above: Performed By: #### SPE, UPE RAND, VITO SE RUM, VITO,URINE #### [facility] , #### CUU, ADDONUAPLUS #### [facility] [address] [place] [address] [place] Beta Globulin 0.9 g/dL Normal 0.7-1.3 [facility] Comment on above: Performed By: #### SPE, UPE RAND, VITO SE RUM, VITO,URINE #### [facility] , #### CUU, ADDONUAPLUS #### [place] [address] [place] Gamma Globulin 1.1 g/dL Normal 0.4-1.8 [facility] Comment on above: Performed By: #### SPE, UPE RAND, VITO SE RUM, VITO,URINE #### [facility] , #### CUU, ADDONUAPLUS #### [facility] [address] [place] [address] Globulin (S) [Mass/Vol] 3.1 g/dL Normal 2.2-3.9 [facility] Comment on above: Performed By: #### SPE, UPE RAND, VITO SE RUM, VITO,URINE #### [facility] , #### CUU, ADDONUAPLUS #### [facility] [address] [place] [address] M-Virgil Not Observed Normal Not Observed [facility] Comment on above: Performed By: #### SPE, UPE RAND, VITO SE RUM, VITO,URINE #### [facility] , #### CUU, ADDONUAPLUS #### [facility] [address] [place] [address] Protein [Mass/Vol] 6.4 g/dL Normal 6.0-8.5 [facility] Comment on above: Performed By: #### SPE, UPE RAND, VITO SE RUM, VITO,URINE #### [facility] , #### CUU, ADDONUAPLUS #### [facility] [address] [place] [address] SPE-Note Normal . [facility] Comment on above: Result Comment: Protein electrophoresis scan will follow via computer, mail, or brass chaser delivery. Performed at: [facility] [address] [id number] Production Supply Equipment Tender: Naldo Valdez PhD, Phone: [phone] PERFORMED BY: [place] [address] PATHOLOGIST SALES OPERATIONS DIRECTOR JORGE LUIS RUELAS M.D. Performed By: #### S PE, UPE RAND, VITO SERUM, VITO,URINE #### [facility] , #### CUU, ADDONUAPLUS #### [facility] [address] Thyroid Stimulating Hormoneo n 09-07-2022 TSH Qn 1.60 m[IU]/L Normal 0.45-5.33 [facility] Comment on above: Result Comment: PERFORMED BY: [place] [address] PATHOLOGIST SALES OPERATIONS DIRECTOR JORGE LUIS RUELAS M.D. Performed By: #### T 4F, TSH3, CRP, CMP, ESR, CBC #### [facility] [address] Urine Cultureon 09-07-2022 Bacteria identified Cx Nom (U) ORGANISM: Escherichia coli (O:ESCCOL) Liberty Count >100,000 Aerobic DELFIN Charge (NMIC56) SUSCEPTIBILITY [...] RESISTANT TO ALL B-LACTAM DRUGS. PERFORMED BY: [place] [address] PATHOLOGIST SALES OPERATIONS DIRECTOR JORGE LUIS RUELAS M.D. [facility] Comment on above: Performed By: #### SPE, UPE RAND, VITO SE RUM, VITO,URINE #### [facility] , #### CUU, ADDONUAPLUS #### [facility] [address] CULTURE URINEon 05-28-2022 CULTURE URINE Isolate [...] F Trimethoprim/Sulfamethoxazole <=20 S F Normal [facility] Comment on above: Performed By: #### UACSIND #### [facility] [address] [place] [address] Dr. Megan Caballero ALDOLASEon 05-27-2022 Aldolase 5.8 U/L Normal 3.3-10.3 [facility] Comment on above: Performed By: #### LACT #### [facility] [address] [place] [address] Dr. Megan Caballero TAO DIRECTon 05-27-2022 TAO Direct Negative Normal Negative [facility] Comment on above: Performed By: #### LACT #### [facility] [address] [place] [address] Dr. Megan Caballero RHEUMATOID FACTORon 05-28-19 23 RA Latex Turbid. 28.2 IU/mL Critically high <14.0 [facility] Comment on above: Performed By: #### LACT #### [facility] [address] [place] [address] Dr. Megan Caballero CBC AUTO DIFFon 05-26-2022 BASO # 0.0 103/ul Normal 0.0-0.1 [facility] Comment on above: Performed By: #### LACT #### [facility] [address] [place] [address] Dr. Megan Caballero Basophils/100 WBC (Bld) 0.1 % Critically low 0.2-2.0 [facility] Comment on above: Performed By: #### LACT #### [facility] [address] [place] [address] Dr. Megan Caballero EO # 0.0 103/ul Normal 0.0-0.7 [facility] Comment on above: Performed By: #### LACT #### [facility] [address] [place] [address] Dr. Megan Caballero Eosinophils/100 WBC (Bld) 0.0 % Critically low 0.9-7.0 [facility] Comment on above: Performed By: #### LACT #### [facility] [address] [place] [address] Dr. Megan Caballero Erythrocyte distribution width (RBC) [Ratio] 13.4 % Normal 11.0-15.0 [facility] Comment on above: Performed By: #### LACT #### [facility] [address] [place] [address] Dr. Megan Caballero Hematocrit (Bld) [Volume fraction] 33.4 % Critically low 36.0-48.0 [facility] Comment on above: Performed By: #### LACT #### [facility] [address] [place] [address] Dr. Megan Caballero Hemoglobin (Bld) [Mass/Vol] 11.0 g/dL Critically low 12.0-16.0 [facility] Comment on above: Performed By: #### LACT #### [facility] [address] [place] [address] Dr. Megan Caballero IG # 0.12 10e3/ul Critically high 0.00-0.03 [facility] Comment on above: Performed By: #### LACT #### [facility] [address] [place] [address] Dr. Megan Caballero IG % 0.9 % Critically high 0.0-0.5 [facility] Comment on above: Performed By: #### LACT #### [facility] [address] [place] [address] Dr. Megan Caballero LYMPH # 0.8 103/ul Critically low 1.2-3.8 [facility] Comment on above: Performed By: #### LACT #### [facility] [address] [place] [address] Dr. Megan Caballero Lymphocytes/100 WBC (Bld) 5.7 % Critically low 20.5-60.0 [facility] Comment on above: Performed By: #### LACT #### [facility] [address] [place] [address] Dr. Megan Caballero MANUAL DIFF REQ NO Normal [facility] Comment on above: Performed By: #### LACT #### [facility] [address] [place] [address] Dr. Megan aCballero MCH (RBC) [Entitic mass] 29.2 pg Normal 26.7-34.0 [facility] Comment on above: Performed By: #### LACT #### [facility] [address] [place] [address] Dr. Megan Caballero MCHC (RBC) [Mass/Vol] 32.9 g/dL Normal 29.9-35.2 [facility] Comment on above: Performed By: #### LACT #### [facility] [address] [place] [address] Dr. Megan Caballero MCV (RBC) [Entitic vol] 88.6 fL Normal 81.0-99.0 [facility] Comment on above: Performed By: #### LACT #### [facility] [address] [place] [address] Dr. Megan Caballero MONO # 1.1 103/ul Critically high 0.3-0.8 [facility] Comment on above: Performed By: #### LACT #### [facility] [address] [place] [address] Dr. Megan Caballero Monocytes/100 WBC (Bld) 7.9 % Normal 1.7-12.0 [facility] Comment on above: Performed By: #### LACT #### [facility] [address] [place] [address] Dr. Megan Caballero NEUT # 11.9 103/ul Critically high 1.4-6.5 [facility] Comment on above: Performed By: #### LACT #### [facility] [address] [place] [address] Dr. Megan Caballero Neutrophils/100 WBC (Bld) 85.4 % Critically high 43.0-75.0 [facility] Comment on above: Performed By: #### LACT #### [facility] [address] [place] [address] Dr. Megan Caballero Platelet mean volume (Bld) [Entitic vol] 10.2 fL Normal 9.5-13.5 [facility] Comment on above: Performed By: #### LACT #### [facility] [address] [place] [address] Dr. Megan Caballero PLT 176 103/ul Normal 150-450 [facility] Comment on above: Performed By: #### LACT #### [facility] [address] [place] [address] Dr. Megan Caballero RBC 3.77 106/ul Critically low 4.20-5.40 [facility] Comment on above: Performed By: #### LACT #### [facility] [address] [place] [address] Dr. Megan Caballero WBC 13.9 103/ul Critically high 4.0-11.0 [facility] Comment on above: Performed By: #### LACT #### [facility] [address] [place] [address] Dr. Megan Caballero CULTURE BLOODon 05-26-2022 Microscopic examination of blood, culture Culture Observations: NO GROWTH AT 5 DAYS. Normal [facility] Comment on above: Performed By: #### UACSIND #### [facility] [address] [place] [address] Dr. Megan Caballero Microscopic examination of blood, culture Culture Observations: NO GROWTH AT 5 DAYS. Normal [facility] Comment on above: Performed By: #### UACSIND #### [facility] [address] [place] [address] Dr. Megan Caballero LACTATE/LACTIC ACIDon 2022 Lactate [Moles/Vol] 1.1 mmol/L Normal 0.4-1.9 [facility] Comment on above: Performed By: #### LACT #### [facility] [address] [place] [address] Dr. Megan Caballero LIVER PROFILEon 05-26-2022 Albumin [Mass/Vol] 2.7 g/dL Critically low 3.4-5.0 [facility] Comment on above: Performed By: #### LACT #### [facility] [address] [place] [address] Dr. Megan Caballero Albumin/Globulin [Mass ratio] 0.6 {ratio} Normal [facility] Comment on above: Performed By: #### LACT #### [facility] [address] [place] [address] Dr. Megan Caballero ALP [Catalytic activity/Vol] 107 U/L Normal 46-116 [facility] Comment on above: Performed By: #### LACT #### [facility] [address] [place] [address] Dr. Megan Caballero ALT [Catalytic activity/Vol] 12 U/L Critically low 14-59 [facility] Comment on above: Performed By: #### LACT #### [facility] [address] [place] [address] Dr. Megan Caballero AST [Catalytic activity/Vol] 16 U/L Normal 15-37 [facility] Comment on above: Performed By: #### LACT #### [facility] [address] [place] [address] Dr. Megan Caballero BILI, CONJUGATED 0.1 mg/dL Normal 0.0-0.2 [facility] Comment on above: Performed By: #### LACT #### [facility] [address] [address] [address] Megan Caballero Bilirubin [Mass/Vol] 0.6 mg/dL Normal 0.2-1.0 [facility] Comment on above: Performed By: #### LACT #### [facility] [address] [address] [address] Megan Caballero Globulin (S) [Mass/Vol] 4.2 g/dL Normal [facility] Comment on above: Performed By: #### LACT #### [facility] [address] [address] [address] Megan Caballero Protein [Mass/Vol] 6.9 g/dL Normal 6.4-8.2 [facility] Comment on above: Performed By: #### LACT #### [facility] [address] [place] [address] Dr. Megan Caballero MAGNESIUMon 05-26-2022 Magnesium [Mass/Vol] 1.9 mg/dL Normal 1.8-2.4 [facility] Comment on above: Performed By: #### MG #### [facility] [address] [place] [address] Dr. Megan Caballeor NM BONE SC WH BODYon 023 NM BONE SC WH BODY EXAMINATION: [place] BONE [facility] BODY HISTORY: Pain ; right hip pain, [...] IHSAN PEDROZA Date: 2022-05-26 15:25 Normal [facility] PROF 14(COMP METB)on 023 Albumin [Mass/Vol] 2.4 g/dL Critically low 3.4-5.0 [facility] Comment on above: Performed By: #### LACT #### [facility] [address] [place] [address] Dr. Megan Caballero Albumin/Globulin [Mass ratio] 0.6 {ratio} Normal [facility] Comment on above: Performed By: #### LACT #### [facility] [address] [place] [address] Dr. Megan Caballero ALP [Catalytic activity/Vol] 92 U/L Normal 46-116 [facility] Comment on above: Performed By: #### LACT #### [facility] [address] [place] [address] Dr. Megan Caballero ALT [Catalytic activity/Vol] 10 U/L Critically low 14-59 [facility] Comment on above: Performed By: #### LACT #### [facility] [address] [place] [address] Dr. Megan Caballero Anion gap [Moles/Vol] 10.3 mmol/L Normal [facility] Comment on above: Performed By: #### LACT #### [facility] [address] [place] [address] Dr. Megan Caballero AST [Catalytic activity/Vol] 14 U/L Critically low 15-37 [facility] Comment on above: Performed By: #### LACT #### [facility] [address] [place] [address] Dr. Megan Caballero Bilirubin [Mass/Vol] 0.5 mg/dL Normal 0.2-1.0 [facility] Comment on above: Performed By: #### LACT #### [facility] [address] [place] [address] Dr. Megan Caballero Calcium [Mass/Vol] 8.2 mg/dL Critically low 8.5-10.1 [facility] Comment on above: Performed By: #### LACT #### [facility] [address] [place] [address] Dr. Megan Caballero Chloride [Moles/Vol] 104 mmol/L Normal 98-107 [facility] Comment on above: Performed By: #### LACT #### [facility] [address] [place] [address] Dr. Megan Caballero CO2 [Moles/Vol] 28.2 mmol/L Normal 21.0-32.0 [facility] Comment on above: Performed By: #### LACT #### [facility] [address] [place] [address] Dr. Megan Caballero Creatinine [Mass/Vol] 1.05 mg/dL Critically high 0.55-1.02 [facility] Comment on above: Performed By: #### LACT #### [facility] [address] [place] [address] Dr. Megan Caballero EGFR-AF [place] >60 Normal >=60 [facility] Comment on above: Performed By: #### LACT #### [facility] [address] [place] [address] Dr. Megan Caballero EGFR-NON AF [place] 50 mL/min/1.73m2 Critically low >=60 [facility] Comment on above: Performed By: #### LACT #### [facility] [address] [place] [address] Dr. Megan Caballero Globulin (S) [Mass/Vol] 3.7 g/dL Normal [facility] Comment on above: Performed By: #### LACT #### [facility] [address] [place] [address] Dr. Megan Caballero Glucose [Mass/Vol] 116 mg/dL Critically high 74-106 [facility] Comment on above: Performed By: #### LACT #### [facility] [address] [place] [address] Dr. Megan Caballero Potassium [Moles/Vol] 3.5 mmol/L Normal 3.5-5.1 [facility] Comment on above: Performed By: #### LACT #### [facility] [address] [place] [address] Dr. Megan Caballero Protein [Mass/Vol] 6.1 g/dL Critically low 6.4-8.2 [facility] Comment on above: Performed By: #### LACT #### [facility] [address] [place] [address] Dr. Megan Caballero Sodium [Moles/Vol] 139 mmol/L Normal 136-145 [facility] Comment on above: Performed By: #### LACT #### [facility] [address] [place] [address] Dr. Megan Caballero Urea nitrogen [Mass/Vol] 25.0 mg/dL Critically high 7.0-18.0 [facility] Comment on above: Performed By: #### LACT #### [facility] [address] [place] [address] Dr. Megan Caballero Urea nitrogen/Creatin ine [Mass ratio] 23.8 mg/mg Normal [facility] Comment on above: Performed By: #### LACT #### [facility] [address] [place] [address] Dr. Megan Caballero PTTon 05-26-2022 aPTT Coag (Bld) [Time] 31.1 s Normal 22.3-36.2 [facility] Comment on above: Performed By: #### PTT #### [facility] Laboratory [address] [place] [address] Dr. Megan Caballero UA RANDOMon 05-26-2022 Bilirubin Ql (U) Negative Normal NEGATIVE [facility] Comment on above: Performed By: #### UA #### [facility] [address] [place] [address] Dr. Megan Caballero Clarity (U) CLEAR Normal CLEAR [facility] Comment on above: Performed By: #### UA #### [facility] [address] [place] [address] Dr. Megan Caballero Color (U) LT. YELLOW Normal YELLOW [facility] Comment on above: Performed By: #### UA #### [facility] [address] [place] [address] Dr. Megan Caballero Glucose Ql (U) Negative Normal NEGATIVE [facility] Comment on above: Performed By: #### UA #### [facility] [address] [place] [address] Dr. Megan Caballero Hemoglobin Ql (U) MODERATE Abnormal NEGATIVE [facility] Comment on above: Performed By: #### UA #### [facility] [address] [place] [address] Dr. Megan Caballero Ketones Ql (U) Negative Normal NEGATIVE [facility] Comment on above: Performed By: #### UA #### [facility] [address] [place] [address] Dr. Megan Caballero LEUKOCYTES TRACE Abnormal NEGATIVE [facility] Comment on above: Performed By: #### UA #### [facility] [address] [place] [address] Dr. Megan Caballero Nitrite Ql (U) Negative Normal NEGATIVE [facility] Comment on above: Performed By: #### UA #### [facility] [address] [place] [address] Dr. Megan Caballero pH (U) 6.0 [pH] Normal 5-9 [facility] Comment on above: Performed By: #### UA #### [facility] [address] [place] [address] Dr. Megan Caballero SPEC GRAVITY 1.015 Normal 1.005-<=1. 025 [facility] Comment on above: Performed By: #### UA #### [facility] [address] [place] [address] Dr. Megan Caballero UA PROTEIN 30 mg/dl Abnormal NEGATIVE/ TRACE [facility] Comment on above: Performed By: #### UA #### [facility] [address] [place] [address] Dr. Megan Caballero Urobilinogen Qn (U) 0.2 {Renu'U}/dL Normal 0.2 - 1.0 [facility] Comment on above: Performed By: #### UA #### [facility] [address] [place] [address] Dr. Megan Caballero XR CHEST 1 Von [...] ALVINO BENITEZ Date: 2022-05-26 04:41 Normal [facility] CPKon 05-25-2022 CK [Catalytic activity/Vol] 73 U/L Normal 26-192 [facility] Comment on above: Performed By: #### UACSIND #### [facility] [address] [place] [address] Dr. Megan Caballero CRPon 05-25-2022 CRP 11.9 mg/dL Critically high <=1.0 [facility] Comment on above: Performed By: #### CRP, URIC #### [facility] [address] [address] [address] Megan Caballero Covid-19 PCR ([facility])on SARS-CoV-2 (COVID-19) RNA YU+probe Ql (Unsp spec) Not detected Normal NOT DETECTED [facility] Comment on above: Result Comment: When diagnostic [...] for this test is supported by the [employer] and Human Service's declaration that [...] used). Performed By: #### U ACSIND #### [facility] [address] [place] [address] Dr. Megan Caballero SED RATE WESTERGRENon 2022 SED RATE 55 mm/hr Critically high <=30 [facility] Comment on above: Performed By: #### SEDR #### [facility] [address] [place] [address] Dr. Megan Caballero TSHon 05-25-2022 TSH 0.533 uIU/mL Normal 0.358-3.74 0 [facility] Comment on above: Performed By: #### TSH #### [facility] [address] [place] [address] Dr. Megan Caballero UA (CLEAN/CATCH) HOSPITAL UNIT COORDINATOR/MICRO I F IND.on 05-25-2022 Bilirubin Ql (U) Negative Normal NEGATIVE [facility] Comment on above: Performed By: #### UACSIND #### [facility] [address] [place] [address] Dr. Megan Caballero Clarity (U) CLEAR Normal CLEAR [facility] Comment on above: Performed By: #### UACSIND #### [facility] [address] [place] [address] Dr. Megan Caballero Color (U) LT. YELLOW Normal YELLOW [facility] Comment on above: Performed By: #### UACSIND #### [facility] [address] [place] [address] Dr. Megan Caballero Glucose Ql (U) Negative Normal NEGATIVE [facility] Comment on above: Performed By: #### UACSIND #### [facility] [address] [place] [address] Dr. Megan Caballero Hemoglobin Ql (U) TRACE-LYSED Abnormal NEGATIVE [facility] Comment on above: Performed By: #### UACSIND #### [facility] [address] [place] [address] Dr. Megan Caballero Ketones Ql (U) Negative Normal NEGATIVE [facility] Comment on above: Performed By: #### UACSIND #### [facility] [address] [place] [address] Dr. Megan Caballero LEUKOCYTES Negative Normal NEGATIVE [facility] Comment on above: Performed By: #### UACSIND #### [facility] [address] [place] [address] Dr. Megan Caballero Nitrite Ql (U) Negative Normal NEGATIVE [facility] Comment on above: Performed By: #### UACSIND #### [facility] [address] [place] [address] Dr. Megan Caballero pH (U) 6.5 [pH] Normal 5-9 [facility] Comment on above: Performed By: #### UACSIND #### [facility] [address] [place] [address] Dr. Megan Caballero SPEC GRAVITY 1.020 Normal 1.005-<=1. 025 [facility] Comment on above: Performed By: #### UACSIND #### [facility] [address] [place] [address] Dr. Megan Caballero UA PROTEIN Negative Normal NEGATIVE/ TRACE [facility] Comment on above: Performed By: #### UACSIND #### [facility] [address] [place] [address] Dr. Megan Caballero UR MICRO IND NOT INDICATED Normal [facility] Comment on above: Performed By: #### UACSIND #### [facility] [address] [place] [address] Dr. Megan Caballero Urobilinogen Qn (U) 0.2 {Renu'U}/dL Normal 0.2 - 1.0 [facility] Comment on above: Performed By: #### UACSIND #### [facility] [address] [place] [address] Dr. Megan Caballero URIC ACID SERUMon 05-25-2022 Urate [Mass/Vol] 4.3 mg/dL Normal 2.6-6.0 [facility] Comment on above: Performed By: #### CRP, URIC #### [facility] [address] [place] [address] Dr. Megan Caballero XR FEMUR RTon 05-25-2022 [...] by: JELANI MAR Date: 2022-05-24 23:28 Normal [facility] CBC W MANUAL DIFFon 05-25-19 23 ATYPICAL LYMPH # Normal [facility] Comment on above: Performed By: #### LACT #### [facility] [address] [place] [address] Dr. Megan Caballero ATYPICAL LYMPH % Normal [facility] Comment on above: Performed By: #### LACT #### [facility] [address] [place] [address] Dr. Megan Caballero BAND # 0.0 103/ul Normal 0.0-0.3 [facility] Comment on above: Performed By: #### LACT #### [facility] [address] [place] [address] Dr. Megan Caballero BAND % 0 % Normal 0-5 [facility] Comment on above: Performed By: #### LACT #### [facility] [address] [place] [address] Dr. Megan Caballero BASOM # 0.00 103/ul Normal 0.00-0.10 [facility] Comment on above: Performed By: #### LACT #### [facility] [address] [place] [address] Dr. Megan Caballero BASOM % 0.0 % Critically low 0.2-2.0 [facility] Comment on above: Performed By: #### LACT #### [facility] [address] [place] [address] Dr. Megan Caballero BLAST # Normal [facility] Comment on above: Performed By: #### LACT #### [facility] [address] [place] [address] Dr. Megan Caballero BLAST % Normal [facility] Comment on above: Performed By: #### LACT #### [facility] [address] [place] [address] Dr. Megan Caballero CORRECTED WBC Normal 4.0-11.0 [facility] Comment on above: Performed By: #### LACT #### [facility] [address] [place] [address] Dr. Megan Caballero EOS # 0.00 103/ul Normal 0.00-0.70 [facility] Comment on above: Performed By: #### LACT #### [facility] [address] [place] [address] Dr. Megan Caballero EOS% 0.0 % Critically low 0.9-7.0 [facility] Comment on above: Performed By: #### LACT #### [facility] [address] [place] [address] Dr. Megan Caballero HCT 37.2 % Normal 36.0-48.0 [facility] Comment on above: Performed By: #### LACT #### [facility] [address] [place] [address] Dr. Megan Caballero HGB 12.2 g/dl Normal 12.0-16.0 [facility] Comment on above: Performed By: #### LACT #### [facility] [address] [place] [address] Dr. Megan Caballero LYMPHM # 0.23 103/ul Critically low 1.20-3.80 [facility] Comment on above: Performed By: #### LACT #### [facility] [address] [place] [address] Dr. Megan Caballero LYMPHM% 2.0 % Critically low 20.5-60.0 [facility] Comment on above: Performed By: #### LACT #### [facility] [address] [place] [address] Dr. Megan Caballero MCH 28.6 pg Normal 26.7-34.0 [facility] Comment on above: Performed By: #### LACT #### [facility] [address] [place] [address] Dr. Megan Caballero MCHC 32.8 g/dl Normal 29.9-35.2 [facility] Comment on above: Performed By: #### LACT #### [facility] [address] [place] [address] Dr. Megan Caballero MCV 87.1 fL Normal 81.0-99.0 [facility] Comment on above: Performed By: #### LACT #### [facility] [address] [place] [address] Dr. Megan Caballero METAMYELOCYTE # Normal [facility] Comment on above: Performed By: #### LACT #### [facility] [address] [place] [address] Dr. Megan Caballero METAMYELOCYTE % Normal [facility] Comment on above: Performed By: #### LACT #### [facility] [address] [place] [address] Dr. Megan Caballero MONOM# 0.23 103/ul Critically low 0.30-0.80 [facility] Comment on above: Performed By: #### LACT #### [facility] [address] [place] [address] Dr. Megan Caballero MONOM% 2.0 % Normal 1.7-12.0 [facility] Comment on above: Performed By: #### LACT #### [facility] [address] [place] [address] Dr. Meagn Caballero MPV 9.5 fL Normal 9.5-13.5 [facility] Comment on above: Performed By: #### LACT #### [facility] [address] [place] [address] Dr. Megan Caballero MYELOCYTE # Normal [facility] Comment on above: Performed By: #### LACT #### [facility] [address] [place] [address] Dr. Megan Caballero MYELOCYTE % Normal [facility] Comment on above: Performed By: #### LACT #### [facility] [address] [place] [address] Dr. Megan Caballero NRBC Normal [facility] Comment on above: Performed By: #### LACT #### [facility] [address] [place] [address] Dr. Megan Caballero PLT 197 103/ul Normal 150-450 [facility] Comment on above: Performed By: #### LACT #### [facility] [address] [place] [address] Dr. Megan Caballero RBC 4.27 106/ul Normal 4.20-5.40 [facility] Comment on above: Performed By: #### LACT #### [facility] [address] [place] [address] Dr. Megan Caballero RDW 13.1 % Normal 11.0-15.0 [facility] Comment on above: Performed By: #### LACT #### [facility] [address] [place] [address] Dr. Megan Caballero SEG # 10.85 103/ul Critically high 1.40-6.50 [facility] Comment on above: Performed By: #### LACT #### [facility] [address] [place] [address] Dr. Megan Caballero SEG % 96.0 % Critically high 43.0-75.0 [facility] Comment on above: Performed By: #### LACT #### [facility] [address] [place] [address] Dr. Megan Caballero WBC 11.3 103/ul Critically high 4.0-11.0 [facility] Comment on above: Performed By: #### LACT #### [facility] [address] [place] [address] Dr. Megan Caballero CRPon 05-24-2022 CRP 1.7 mg/dL Critically high <=1.0 [facility] Comment on above: Performed By: #### LACT #### [facility] [address] [place] [address] PELVIS WO CONon [...] of iterative reconstruction technique. FINDINGS: The initial ophthalmic lens inspector views demonstrate bilateral total hip prostheses. The [...] JELANI MAR Date: 2022-05-24 21:51 Normal [facility] PROF CHEM 8 (BAS METB)on Anion gap [Moles/Vol] 12.6 mmol/L Normal [facility] Comment on above: Performed By: #### LACT #### [facility] [address] [place] [address] Dr. Megan Caballero Calcium [Mass/Vol] 8.6 mg/dL Normal 8.5-10.1 [facility] Comment on above: Performed By: #### LACT #### [facility] [address] [place] [address] Dr. Megan Caballero Chloride [Moles/Vol] 102 mmol/L Normal 98-107 [facility] Comment on above: Performed By: #### LACT #### [facility] [address] [place] [address] Dr. Megan Caballero CO2 [Moles/Vol] 28.6 mmol/L Normal 21.0-32.0 [facility] Comment on above: Performed By: #### LACT #### [facility] [address] [place] [address] Dr. Megan Caballero Creatinine [Mass/Vol] 0.73 mg/dL Normal 0.55-1.02 [facility] Comment on above: Performed By: #### LACT #### [facility] [address] [place] [address] Dr. Megan Caballero EGFR-AF [place]IZ[place] >60 Normal >=60 [facility] Comment on above: Performed By: #### LACT #### [facility] [address] [place] [address] Dr. Megan Caballero EGFR-NON AF [place] >60 Normal >=60 [facility] Comment on above: Performed By: #### LACT #### [facility] [address] [address] [address] Megan Caballero Glucose [Mass/Vol] 121 mg/dL Critically high 74-106 [facility] Comment on above: Performed By: #### LACT #### [facility] [address] [address] [address] Megan Caballero Potassium [Moles/Vol] 3.2 mmol/L Critically low 3.5-5.1 [facility] Comment on above: Performed By: #### LACT #### [facility] [address] [address] [address] Megan Caballero Sodium [Moles/Vol] 140 mmol/L Normal 136-145 [facility] Comment on above: Performed By: #### LACT #### [facility] [address] [place] [address] Dr. Megan Caballero Urea nitrogen [Mass/Vol] 15.0 mg/dL Normal 7.0-18.0 [facility] Comment on above: Performed By: #### LACT #### [facility] [address] [address] [address] Megan Caballero Urea nitrogen/Creatin ine [Mass ratio] 20.5 mg/mg Normal [facility] Comment on above: Performed By: #### LACT #### [facility] [address] [place] [address] Dr. Megan Caballero SED RATE [facility] 2022 SED RATE 54 mm/hr Critically high <=30 [facility] Comment on above: Performed By: #### SEDR #### [facility] [address] [place] [address] Dr. Megan Caballero CNOVon 05-30-2020 CNOV Office Visit (UROLAV ) ANGELIKA MUIR ([id number]) 1940 [place] Date Time Provider Department 05/30/20 6:00 PM NEGRO POMPA During your visit today, we recorded the following information about you: Pulse Blood pressure Weight 101/minute 141/67 98.4 kg Negro Pompa MD 05/30/2020 6:55 PM Signed [facility] [...] Via bladder scan. Referring Provider: NEGRO POMPA [[id number]] Allergies As of Date: 05/30/2020 Noted Allergy [...] CAPSULE Take 200 mg by mouth once kasye* KLOR-CON M20 MEQ TABLET,EXTEN* Take 20 mEq [...] Status:Closed by NEGRO POMPA MD on 05/30/[address] [facility] CNCOon 05-28-2020 CNCO Letter Text [facility] ANES POSTPROC EVALon 021 ANES POSTPROC EVAL HNO ID: [id number] Author: Ihsan Gamino Service: Anesthesiology Author Type: Anesthesiologist Type: Anesthesia Postprocedure Evaluation Filed: 05/01/2020 4:49 PM Note Text: POST ANESTHESIA EVALUATION NOTE : 1940 Procedure Summary Date: 05/01/20 Room / Location: [address] / [facility] Anesthesia Start: 1504 Anesthesia Stop: [...] May 01, 2020 TIME: 4:49 PM CSN: [id number] [facility] ANES PRE-OPon 05-01-2020 ANES PRE-OP HNO ID: [id number] Author: Ihsan Gamino Service: Anesthesiology Author Type: [...] May 01, 2020 TIME: 3:53 PM CSN: [id number] Normal [facility] HISTORY PHYSICALon HISTORY PHYSICAL HNO ID: [id number] Author: Negro Pompa Service: Urology Author Type: [...] Pompa MD May 01, 2020 1:22 PM [facility] OPERATIVE NOon 05-01-2020 OPERATIVE NO HNO ID: [id number] Author: Negro Pompa Service: Urology Author Type: Physician Type: Operative Report Filed: 05/01/2020 5:00 PM Note Text: OPERATIVE/PROCEDURE REPORT LOG ID: [id number] SURGERY/PROCEDURE DATE: 05/01/2020 INCISION/PROCEDURE START TIME: 3:28 PM INCISION CLOSE/PROCEDURE END TIME: 4:05 PM SURGEON(S)/PROCEDURALIST(S) AND CABLE LAYER(S): Surgeon(s) and Role: * Negro Mendezmurphy - Primary No Additional Staff SURGERY/PROCEDURE(S): Incision [...] 2020 TIME: 4:45 PM PAGER/CONTACT #: Normal [facility] SURGICAL PATHOLOGYon 021 SURGICAL PATHOLOGY Specimen originated from [facility] Specimen #: [id number] Submitting Physician: NEGRO POMPA FINAL DIAGNOSIS Vaginal [...] cassette. DOUG/evens 05/02/2020 Gross examination performed at [facility], [address] [address] Date of Report: 05/06/2020 Date of Procedure: 05/01/2020 Date of Receipt: 05/02/2020 Submitted by: NEGRO POMPA Location: [facility] Diagnostic interpretation performed at [facility], [address] [place] [address]. CLIA Number: [id number] [facility] HOSPon 04-19-2020 HOSP Patient:Nany Muir MRN: [...] entered within the past 30 days Normal [facility] Provider Letteron 11-21-2019 Provider Letter (Inserted Image. Patricia ble to display) November 21, 2019 ANGELIKA MUIR [address] [place] [id number] ANGELIKA MUIR 1940 Dear Angelika, You missed [...] understanding. Sincerely, [facility]/Dr De La Cruz [facility] Ambulatory Clinical Summaryo n 10-27-2019 Ambulatory Clinical Summary {[id number] Normal [facility] Patient Educationon 10-24-19 Patient Education Family [...] bladder worse. Your healthcare provider or a home lending officer can explain ways to change what you [...] Document Reviewed: 01/02/2010 ExitCare? Patient Information ?2013 [employer]wine. [facility] Urology Office/Clinic Noteon 10-24-2019 Urology Office/Clinic Note [...] in 1 month. Ordered: PVR urine/bladder capacity/US 01415 Urnls Dip Stick Auto w/o Microscopy POC 27230 2. Other urethral stricture, female (N35.82: Other [...] Daily, # 30 tab(s), Refills(s) 1, [facility], 170, cm, 10/24/19 14:15:00 EDT, Height/Length Measured, 100, kg, 10/24/19 14:15:00 EDT, Weight Measured I have reviewed the previous health record information and history for this patient from Dr. De La Cruz Follow-up With When Contact Information Jono Faust MD, Bandar Devine In 1 month [facility] [address], [place] [address]- Additional Instructions: w/ PVR Patient Education Overactive Bladder, Adult I, iLda Ybarra, personally scribed for Dr. De La [...] Protein Urine Dipstick: Negative (10/24/19 14:03:00) Specific [place] Urine Dipstick: 1.025 (10/24/19 14:03:00) Urine Appearance Urine Dipstick: Clear (10/24/19 14:03:00) Urine Color Urine Dipstick: Yellow (10/24/19 14:03:00) Urobilinogen Urine Dipstick: Normal 0.2-1 EU/dl (10/24/19 14:03:00) pH Urine Dipstick: 5.5 (10/24/19 14:03:00) Diagnostic Results PVR was reviewed at 85 cc. Urinalysis shows no infection. Normal [facility] Comment on above: Result Comment: Electronically Signed By : Jono Faust MD, Bandar Devine\.br\Date and Time Signed: 10/24/19 14:59 EDT\.br\Electronically Co-Signed By: Lida Ybarra MA\.br\Date and Time Co-Signed: 10/24/19 14:56 EDT Ambulatory Clinical Summaryo n 08-24-2019 Ambulatory Clinical Summary {[id number] Normal [facility] Reminderson 04-24-2019 Reminders - From: Kristen [...] may need scheduled for Cysto/ TVT Normal [facility] Coding Summary.on 04-21-2019 Coding Summary. CODING DATE: 020 FINAL [facility] STATUS: Home (Routine DC) PAYOR: Medicare [...] Garces Date Saved: 04/21/2019 01:56 pm Normal [facility] Patient Summaryon 02-02-2019 Patient Summary PATIENT DISCHARGE IN STRUCTIONS If you are having an emergency and are not able to reach your physician, CALL 911 or go to the nearest emergency room and take this document with you. David Rosales [facility] 02/02/19 09:32 [address] [place]. [address] PATIENT INFORMATION Name: ANGELIKA MUIR Address: [address] [place] [id number] Age: 78 Years Phone: [phone] : 1940 12:00 MRN: [facility])-[id number] Sex: Female Race: White Ethnicity: Not Hispan/Lat Admitted From: Clinic or [facility] Medical Service: Orthopedic Surgery Nurse Unit/Bed: (CO) [...] Date: Amrik Vickers MD Orthopaedic Surg [address] [facility] [address] [facility] [address] (1) Six Weeks Comment: Call for an Appointment Provider: Specialty: Address: Date: Eduardo Rose MD Internal Medicine [address] [place] [phone] (1) Follow-up as needed Provider: Specialty: Address: Date: [facility]: Tristen [facility] [phone] Follow-up as needed ALLERGIES: No Known Medication [...] doses are changed, or new medications (including ovyc-qpy-hwzrpwt products) are added. Ask your doctor if [...] Decisions Type: Living Will, Medical Power of Lithopone Charger Copy of Advance Directive/Health Care Decisions on Chart: Patient/Family asked to provide copy SUICIDE HOTLINE: Your mental and emotional well-being are important. If you are in a mental health crisis, or having thoughts of suicide, please call the nationwide suicide hotline, anytime day or night, at 0-425-390-VDVL. Important information about accessing your health information through the [facility] patient portal If you initiated the self-registration process for [facility] during your stay, please check your personal email for an invitation to enroll in [facility] and complete the steps outlined in the email. If you would prefer to enroll while in the hospital, ask a member of your care team. We would be happy to assist you. If you have already enrolled in [facility], go to [email or web address] to login and access your health information. Thank you for choosing [facility]. PATIENT EDUCATION Fall Prevention in the Home [...] wet floors. ???Place frequently used items in fydp-xg-xhpuq places. ???If you need to reach for something above you, use a sturdy step stool that has a grab bar. ???Keep electrical cables out of the way. ???Do not use floor uzbek or wax that makes floors slippery. If [...] include working with a physical therapist or hop trainer to improve your strength, balance, and endurance. This information is not intended to replace advice given to you by your health care provider. Make sure you discuss any questions you have with your health care provider. Document Released: 02/26/2003 Document Revised: 07/23/2015 Document Reviewed: 04/12/2015 [employer]pex Interactive Patient Education ?2016 [employer]. Incentive Spirometer An incentive spirometer is a [...] 07/19/2007 Document Revised: 03/29/2015 Document Reviewed: 10/15/2014 ElseH[employer] INTERN[employer] Interactive Patient Education ?2016 Elsevier Inc. Pain Medicine Instructions HOW CAN PAIN [...] liver damage. Acetaminophen is found in many xxqo-xeo-hhonylm (OTC) and prescription medicines. If you are [...] 06/14/2001 Document Revised: 07/23/2015 Document Reviewed: 01/10/2015 Ampex Interactive Patient Education ?2016 [employer] Inc. Preventing Constipation After Surgery Constipation is [...] a bowel movement. ???Having hard, dry, or pywxxb-ichq-kdplgb stools. ???Feeling full or bloated. ???Having pain in the lower abdomen. ???Not feeling relief after having a bowel movement. HOME CARE INSTRUCTIONS Diet ???Eat foods that have a lot of fiber. These include fruits, vegetables, whole grains, and beans. Limit foods high in fat and processed sugars. These include bulgarian fries, hamburgers, cookies, and candy. ???Take a [...] softener, laxative, or fiber supplement. ???Only take jrth-ozr-iqtzota or prescription medicines as directed by your [...] 07/03/2013 Document Revised: 03/29/2015 Document Reviewed: 07/03/2013 ElseHDS INTERNATIONAL Interactive Patient Education ?2016 [employer] Inc. Venous Thromboembolism, Prevention A venous thromboembolism [...] 02/24/2010 Document Revised: 11/30/2012 Document Reviewed: 07/03/2015 Elsevier Interactive Patient Education ?2016 ElseH[employer] INTERN[employer] Inc. VIRUSES OR BACTERIA: WHAT'S GOT YOU [...] Relationship to Patient Clinician Signature Date/Time [facility] Basic Metabolic Panelon 11-1 Calcium [Mass/Vol] 8.4 mg/dL Low 8.5-10.6 [facility] Chloride [Moles/Vol] 105 mmol/L Normal 98-107 [facility] CO2 [Moles/Vol] 32 mmol/L Normal 21-32 [facility] Creatinine [Mass/Vol] 0.77 mg/dL Normal 0.55-1.02 [facility] Glucose [Mass/Vol] 108 mg/dL High 70-99 [facility] Potassium [Moles/Vol] 4.1 mmol/L Normal 3.5-5.1 [facility] Sodium [Moles/Vol] 141 mmol/L Normal 136-145 [facility] Urea nitrogen (BldV) [Mass/Vol] 20 mg/dL High 7.0-18.0 [facility] Urea nitrogen/Creatin ine [Mass ratio] 26 mg/mg [facility] Basic Metabolic Panelon 01-20 Calcium [Mass/Vol] 8.4 mg/dL Low 8.5-10.6 [facility] Chloride [Moles/Vol] 105 mmol/L Normal 98-107 [facility] CO2 [Moles/Vol] 31 mmol/L Normal 21-32 [facility] Creatinine [Mass/Vol] 0.86 mg/dL Normal 0.55-1.02 [facility] Glucose [Mass/Vol] 101 mg/dL High 70-99 [facility] Potassium [Moles/Vol] 4.1 mmol/L Normal 3.5-5.1 [facility] Sodium [Moles/Vol] 140 mmol/L Normal 136-145 [facility] Urea nitrogen (BldV) [Mass/Vol] 21 mg/dL High 7.0-18.0 [facility] Urea nitrogen/Creatin ine [Mass ratio] 24 mg/mg [facility] Anesthesia Recordon 01-31-20 Anesthesia Record Patient: ANGELIKA MUIR MRN: [id number] Age: 78 years Sex: Female : 1940 Associated Diagnoses: None Author: Nadine Barrera MD Procedure Time Out [place] Protocol: patient identity verified, site verified, side verified, procedure to be done verified, patient position verified. REGIONAL ANESTHESIA PROCEDURE Procedure date and begin time: See nurses notes. Procedure date and end time: See nurses notes. Performed by: Nadine Barrera MD. Assisted by: no public relations assistant. Informed consent: signed by patient. Technique: [...] Diagnosis: M25.561 M17.11 Knee Pain . [facility] Anesthesia Record Patient: ANGELIKA MUIR Age: 78 years Sex: Female : 1940 Associated Diagnoses: None Author: Nadine Barrera MD Procedure Time Out [place] Protocol: patient identity verified, site verified, side verified, procedure to be done verified, patient position verified. REGIONAL ANESTHESIA PROCEDURE Procedure date and begin time: See nurses notes. Procedure date and end time: See nurses notes. Performed by: Nadine Barrera MD. Assisted by: no public relations assistant. Informed consent: signed by patient. Technique: [...] M25.561 M17.11 Knee Pain OA . [facility] Basic Metabolic Panelon 01-20 Calcium [Mass/Vol] 9.0 mg/dL Normal 8.5-10.6 [facility] Chloride [Moles/Vol] 106 mmol/L Normal 98-107 [facility] CO2 [Moles/Vol] 29 mmol/L Normal 21-32 [facility] Creatinine [Mass/Vol] 0.84 mg/dL Normal 0.55-1.02 [facility] Glucose [Mass/Vol] 105 mg/dL High 70-99 [facility] Potassium [Moles/Vol] 3.7 mmol/L Normal 3.5-5.1 [facility] Sodium [Moles/Vol] 143 mmol/L Normal 136-145 [facility] Urea nitrogen (BldV) [Mass/Vol] 23 mg/dL High 7.0-18.0 [facility] Urea nitrogen/Creatin ine [Mass ratio] 27 mg/mg [facility] OR Nursingon 01-30-2019 OR Nursing [facility] PACU I Nursingon 01-30-2019 PACU I Nursing CO NA PACU I Nursing Record Summary Primary Physician: Amrik Vickers MD Finalized Date/Time: 01/30/19 12:48:37 Pt. Name: WOOD ANGELIKA Nayak/Sex: 1940 Female Med Rec #: [id number] Physician: Amrik Vickers MD Financial #: [id number] Pt. Type: I Room/Bed: 0219/ Admit/Disch: 01/30/19 05:59:00 - Institution: [place] NA [...] By: Ana Rosas RN 01/30/19 12:48 [facility] PreOp Nursingon 01-30-2019 PreOp Nursing CO NA PreOp Nursing Record Summary Primary Physician: Amrik Vickers MD Finalized Date/Time: 01/30/19 09:02:48 Pt. Name: WOOD, ANGELIKA Nayak/Sex: 1940 Female Med Rec #: [id number] Physician: Amrik Vickers MD Financial #: [id number] Pt. Type: I Room/Bed: / Admit/Disch: 01/30/19 [...] By: Chelsy Batista RN 01/30/19 09:02 [facility] Basic Metabolic Panelon 12-22 Calcium [Mass/Vol] 9.0 mg/dL Normal 8.5-10.6 [facility] Chloride [Moles/Vol] 103 mmol/L Normal 98-107 [facility] CO2 [Moles/Vol] 31 mmol/L Normal 21-32 [facility] Creatinine [Mass/Vol] 0.78 mg/dL Normal 0.55-1.02 [facility] Glucose [Mass/Vol] 90 mg/dL Normal 70-99 [facility] Potassium [Moles/Vol] 4.1 mmol/L Normal 3.5-5.1 [facility] Sodium [Moles/Vol] 142 mmol/L Normal 136-145 [facility] Urea nitrogen (BldV) [Mass/Vol] 19 mg/dL High 7.0-18.0 [facility] Urea nitrogen/Creatin ine [Mass ratio] 24 mg/mg [facility] CBC with Differentialon 12-22 Basophils (Bld) [#/Vol] 0.0 thou/mcL Normal 0.0-0.2 [facility] Basophils/100 WBC (Bld) 0.8 % Normal 0-3 [facility] Differential cell count method Nom (Bld) AUTOMATED DIFFERENTIAL [facility] Eosinophils (Bld) [#/Vol] 0.1 thou/mcL Normal 0.0-0.4 [facility] Eosinophils/100 WBC (Bld) 2.0 % Normal 0-7 [facility] Erythrocyte distribution width (RBC) [Entitic vol] 14.4 % Normal 11.7-15.0 [facility] Hematocrit (Bld) [Volume fraction] 36.7 % Normal 34.0-50.0 [facility] Hemoglobin (Bld) [Mass/Vol] 12.1 g/dL Normal 11.5-17.0 [facility] Lymphocytes (Bld) [#/Vol] 1.3 thou/mcL Normal 0.7-4.5 [facility] Lymphocytes/100 WBC (Bld) 26.0 % Normal 14-46 [facility] MCH (RBC) [Entitic mass] 29.2 Picograms Normal 27.0-34.0 [facility] MCHC (RBC) [Mass/Vol] 32.9 g/dL Normal 32.0-36.0 [facility] MCV (RBC) [Entitic vol] 88.7 fL Normal 80-98 [facility] Monocytes (Bld) [#/Vol] 0.4 thou/mcL Normal 0.1-1.0 [facility] Monocytes/100 WBC (Bld) 8.5 % Normal 4-13 [facility] Neutrophils (Bld) [#/Vol] 3.1 thou/mcL Normal 1.5-7.8 [facility] Neutrophils/100 WBC (Bld) 62.7 % Normal 40-74 [facility] Platelet mean volume (Bld) [Entitic vol] 8.4 fL Normal 7.5-11.2 [facility] Platelets (Bld) [#/Vol] 214 thou/mcL Normal 140-415 [facility] RBC (Bld) [#/Vol] 4.13 x(10)6/mcL Normal 3.80-5.60 [facility] WBC (Bld) [#/Vol] 5.0 thou/mcL Normal 4.0-10.5 [facility] Culture Methicillin Resistan t Staph aureuson 01-19-2019 MRSA isol Org specific cx Ql (Unsp spec) [facility] Microbiology PROCEDURE: Culture Methicillin Resistant Staph aureus SOURCE: Nasal Swab BODY SITE: COLLECTED DATE/TIME: 01/19/2019 15:10 EDT RECEIVED DATE/TIME: 01/19/2019 15:10 EDT START DATE/TIME: 01/19/2019 15:10 EDT FREE TEXT SOURCE: NASAL SWAB-. INTERFACED REPORTS Final Report [] Verified Date/Time/Personnel: 01/20/2019 21:24 EDT CONTRIBUTOR_SYSTEM, CO_PN *MRSA SCREEN* NEGATIVE FOR METHICILLIN(OXACILLIN) RESISTANT STAPHYLOCOCCUS AUREUS. [facility] Comment on above: Performed By: #### [id number] #### [facility] [address] [place], [place] Partial Thromboplastin Time (aPTT)on 01-19-2019 aPTT Coag (PPP) [Time] 31 Sec Normal 23.2-34.6 [facility] Prothrombin Timeon 9 INR Coag (Bld) [Relative time] 1.0 {INR} [facility] Comment on above: Result Comment: DURING THE INDUCTION PHA SE OF ORAL ANTICOAGULATION, THE INR MAY NOT REFLECT THE ANTICOAGULANT STATUS OF THE PATIENT. THERAPEUTIC RANGES FOR INR'S ARE: MOST CLINICAL SITUATIONS: INR 2.0-3.0 MECHANICAL PROSTHETIC VALVES: INR 2.5-3.5 CRITICAL: INR 5.0 PT Coag (PPP) [Time] 12.6 Sec Normal 11.9-14.6 [facility] XR C-Spine 4-5 Viewson 01-19 XR [...] disease, notably advanced at C5-C6 and C6-C7. [facility] thanks you for the opportunity to care for your patient. Workstation ID: [id number] FINAL REPORT Dictated By: Fritz Styles MD 01/19/2019 21:13 Assigned Physician: Fritz Styles MD Reviewed and Electronically Signed By: Fritz Styles MD 01/19/2019 21:17 Transcribed by: JESSIE 01/19/2019 21:13 Technologist: KAYLIN [facility] Culture Anaerobicon 10-19-19 19 Bacteria identified Anaer cx Nom (Unsp spec) [facility] Microbiology PROCEDURE: Culture Anaerobic SOURCE: Joint [...] 20:16 EDT CONTRIBUTOR_SYSTEM, CO_PN CULTURE IN PROGRESS [facility] Comment on above: Performed By: #### [id number] #### [address] Culture Body Fluid + Suscept ibility + Smear Directon 10-18-2018 Bacteria identified Sterile body fluid culture Nom (Unsp spec) [facility] Microbiology PROCEDURE: Culture Body Fluid + Susceptibility [...] NO EPITHELIALS SEEN, NO ORGANISMS SEEN [facility] Comment on above: Performed By: #### [id number] #### [facility] [address] [place], [place] Culture Funguson 10-18-2018 Fungus identified Cx Nom (Unsp spec) [facility] Microbiology PROCEDURE: Culture Fungus SOURCE: Joint Fl [...] WILL BE HELD FOR 1-4 WEEKS [facility] Comment on above: Performed By: #### [id number] #### [facility] [address] [place], [place] XR SHOULDER LEFT MIN 2 VIEWS [...] reviewed andapproved this report. 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 Isaw her in our [place] office. She has had a complete evaluation [...] 11/06/2016/03:29 P/Ankur France M.D.Date Trans: 11/07/2016 06:05 A/[id number]: Eduardo Rose M.D. [address] [place] [address] [facility] Vital Signs Date Time Vital Sign Value Performing Clinician Facility 06-24-2023 16:23-0400 Body height 162.6 cm Otis Furlong DO Work Phone: [facility] [employer] [facility] 06-24-2023 16:23-0400 Body mass index (BMI) [Ratio] 31.07 kg/m2 Otis Furlong DO Work Phone: [facility] [employer] [facility] 06-24-2023 16:23-0400 Body weight 82.1 kg Otis Furlong DO Work Phone: [facility] [employer] [facility] 06-24-2023 16:23-0400 Diastolic blood pressure 78 mm[Hg] Otis Furlong DO Work Phone: [facility] 06-24-2023 16:23-0400 Systolic blood pressure 132 mm[Hg] Otis Furlong DO Work Phone: [facility] 05-24-2023 14:31-0500 Body height 162.6 cm Otis Furlong DO Work Phone: [facility] [employer] [facility] 05-24-2023 14:31-0500 Body mass index (BMI) [Ratio] 31.07 kg/m2 Otis Furlong DO Work Phone: [facility] 05-24-2023 14:31-0500 Body temperature 98.29 [degF] Otis Furlong DO Work Phone: [facility] [employer] [facility] 05-24-2023 14:31-0500 Body weight 82.1 kg Otis Furlong DO Work Phone: [facility] [employer] [facility] 05-24-2023 14:31-0500 Diastolic blood pressure 60 mm[Hg] Otis Furlong DO Work Phone: [facility] [employer] [facility] 05-24-2023 14:31-0500 Heart rate 81 /min Otis Chaves DO Work Phone: [facility] [employer] 05-24-2023 14:31-0500 SaO2% (BldA) [Mass fraction] 96 % Otis Burlesonng DO Work Phone: [facility] [employer] 05-24-2023 14:31-0500 Systolic blood pressure 120 mm[Hg] Otis Burlesonng DO Work Phone: [facility] [employer] [facility] 04-02-2023 09:47-0500 Body height 162.6 cm Veronica Chahal APRN-COSTUME TECHNICIAN Work Phone: [facility] [employer] [facility] 04-02-2023 09:47-0500 Body mass index (BMI) [Ratio] 30.21 kg/m2 Veronica Chahal APRN-COSTUME TECHNICIAN Work Phone: [facility] [employer] [facility] 04-02-2023 09:47-0500 Body temperature 97 [degF] Veronica Chahal APRN-COSTUME TECHNICIAN Work Phone: [facility] [employer] [facility] 04-02-2023 09:47-0500 Body weight 79.83 kg Veronica Chahal APRN-COSTUME TECHNICIAN Work Phone: [facility] [employer] [facility] 04-02-2023 09:47-0500 Diastolic blood pressure 70 mm[Hg] Veronica Chahal APRN-COSTUME TECHNICIAN Work Phone: [facility] [employer] [facility] 04-02-2023 09:47-0500 Heart rate 105 /min Veronica Chahal APRN-COSTUME TECHNICIAN Work Phone: [facility] [employer] [facility] 04-02-2023 09:47-0500 Respiratory rate 16 /min Veronica Chahal APRN-COSTUME TECHNICIAN Work Phone: [facility] [employer] [facility] 04-02-2023 09:47-0500 SaO2% (BldA) [Mass fraction] 97 % Veronica Chahal APRN-COSTUME TECHNICIAN Work Phone: [employer] 04-02-2023 09:47-0500 Systolic blood pressure 130 mm[Hg] Veronica Chahal PAINT PREPARER-COSTUME TECHNICIAN Work Phone: [employer] 03-24-2021 15:45-0500 Body height 166.37 cm Yolanda Schwerer Other [employer] Other 03-24-2021 15:45-0500 Body mass index (BMI) [Ratio] 35.23 kg/m2 Yolanda Schwerer Other [employer] Other 03-24-2021 15:45-0500 Body temperature 99.4 [degF] Yolanda Schwerer Other [employer] Other 03-24-2021 15:45-0500 Body weight 97.52 kg Yoladna Schwerer Other [employer] Other 03-24-2021 15:45-0500 Diastolic blood pressure 78 mm[Hg] Yolanda Schwerer Other [employer] Other 03-24-2021 15:45-0500 SaO2% (BldA) [Mass fraction] 96 % Yolanda Schwerer Other [employer] Other 03-24-2021 15:45-0500 Systolic blood pressure 132 mm[Hg] Yolanda Schwerer Other [employer] Other Encounters Encounter Date Encounter Type Care Provider Facility Start: 10-26-2023 End: 10-26-2023 ambulatory OTIS CHAVES [facility] Start: 10-20-2023 End: 10-20-2023 ambulatory OTIS CHAVES Not Available Start: 10-04-2023 End: 10-04-2023 ambulatory MAGNO KO Not Available Start: 08-09-2023 End: 08-10-2023 ambulatory [facility] Start: 07-29-2023 End: 07-29-2023 ambulatory [facility] Start: 07-26-2023 End: 07-27-2023 ambulatory Tony Holguin MD Facility: [facility] Start: 07-12-2023 End: 07-13-2023 ambulatory [facility] Start: 06-24-2023 End: 06-24-2023 Patient encounter procedure Otis Chaves DO Work Phone: [facility] Comment on above: Medicare annual well ness visit, subsequent (Primary Dx); Screening for depression Start: 06-24-2023 End: 06-24-2023 [facility] Start: 05-25-2023 End: 05-25-2023 Patient encounter procedure Otis Chaves DO Work Phone: [facility] Comment on above: Abnormal urinalysis (Primary Dx); Abnormal kidney function Start: 05-25-2023 [facility] acute hospital [facility] Start: 05-24-2023 End: 05-24-2023 [facility] Start: 05-24-2023 End: 05-25-2023 [facility] Start: 05-24-2023 End: 05-24-2023 Office outpatient visit 15 minutes Otis Chaves DO Work Phone: [facility] Comment on above: Abnormal kidney func tion (Primary Dx); Hyperglycemia; Class 1 obesity due to excess calories with serious comorbidity and body mass index (BMI) of 31.0 to 31.9 in adult; Memory impairment Start: 05-10-2023 End: 05-11-2023 ambulatory Tony Holguin MD Facility:[facility] [place] Start: 04-19-2023 End: 04-20-2023 Orders Only Veronica Chahal PAINT PREPARER-COSTUME TECHNICIAN [facility] Comment on above: Bilateral hip pain ( Primary Dx) Start: 04-02-2023 End: 04-02-2023 Office outpatient visit 15 minutes Veronica Chahal PAINT PREPARER-COSTUME TECHNICIAN Work Phone: [facility] Comment on above: PMR (polymyalgia rhe umatica) ([facility]) (Primary Dx); Bilateral hip pain; Confusion caused by a drug Start: 04-02-2023 End: 04-02-2023 ambulatory VERONICA CHAHAL [facility] Start: 09-07-2022 End: 09-07-2022 ambulatory Gennaro Cheng Facility:[facility] Start: 05-25-2022 End: 05-26-[address] SARIKA MUHAMMAD . Facility: Start: 07-15-2021 End: 07-15-2021 ambulatory Yolanda Schwerer Other [employer] Other Start: 07-15-2021 Telephone encounter Yolanda Schwerer [facility] Start: 04-28-2021 End: 04-28-2021 ambulatory Yolanda Schwerer Other [employer] Other Start: 04-28-2021 Telephone encounter Yolanda Schwerer [facility] Start: 04-03-2021 End: 04-03-2021 ambulatory Yolanda Schwerer Other [employer] Other Start: 04-03-2021 Telephone encounter Yolanda Schwerer [facility] Start: 03-24-2021 End: 03-24-2021 ambulatory Yolanda Schwerer Other [employer] Other Start: 03-24-2021 Office outpatient vi sit 15 minutes Yolanda Bermanerer [facility] [place] Start: 03-20-2021 End: 03-20-2021 ambulatory Yolanda Gloverr Other [employer] Other Start: 03-20-2021 Telephone encounter Yolanda Gloverr [facility] [employer] Start: 03-03-2021 End: 03-03-2021 ambulatory Yolanda Bermanerer Other [employer] Other Start: 03-03-2021 Telephone encounter Yolanda Gloverr [facility] [place] Start: 07-21-2017 Ambulatory JOSE LUIS LIZAMA [facility] Start: 11-06-2016 End: 11-07-2016 Ambulatory ANKUR FRANCE Facility:[facility] Procedures Date Procedure Procedure Detail Performing Clinician Start: 06-24-2023 Adult depression screening assessment Otis Chaves DO Work Phone: Start: 05-25-2023 Urnls dip stick/tabl et rgnt non-auto w/o micrscp Otis Burlesonng DO Work Phone: Start: 05-24-2023 Adult depression screening assessment Otis Chaves DO Work Phone: Start: 12-23-2022 Adult depression screening assessment Veronica Chahal PAINT PREPARER-COSTUME TECHNICIAN Work Phone: Start: 06-18-2015 H/O: artificial joint Status p ost total shoulder arthroplasty Veronica Chahal PAINT PREPARER-COSTUME TECHNICIAN Work Phone: Plan of Treatment Date Care Activity Detail Author Start: 06-23-2024 Adult BMI Screening Adult BMI Screen ing [facility] Start: 06-23-2024 [facility] Start: 06-23-2024 Fall Risk Screening Fall Risk Screen ing [facility] Start: 06-23-2024 Medicare Annual Wellness Visit [facility] Start: 05-23-2024 Adult BMI Screening Adult BMI Screen ing [facility] Start: 05-23-2024 Depression Screening Depression Scre ening [facility] Start: 05-23-2024 Fall Risk Screening Fall Risk Screen ing [facility] Start: 05-23-2024 Tobacco Screening Tobacco Screening [facility] Start: 04-02-2024 Adult BMI Screening Adult BMI Screen ing [facility] Start: 04-02-2024 Tobacco Screening Tobacco Screening [facility] Start: 12-24-2023 Depression Screening Depression Scre ening [facility] Start: 12-24-2023 Fall Risk Screening Fall Risk Screen ing [facility] Start: 12-24-2023 Tobacco Screening Tobacco Screening [facility] Start: 11-21-2023 Influenza vaccination Influenza Vacc ine [facility] Start: 07-29-2023 End: 07-29-2023 Patient encounter procedure 07/29/2023 3:30 PM EDT Office Visit [facility] Physicians Internal Medicine - Family Medicine [address] [place] [address] Otis Chaves, DO [address], [facility] [place] [address] [facility] Physicians Internal Medicine - Family Medicine Start: 06-20-2023 Influenza vaccination Influenza Vacc [facility] Comment on above: Postponed from 11/20 (Patient Refused) Start: 04-02-2023 End: 04-02-2024 XR Hip - bilateral 2 Views X-ray hips bilateral with or without pelvis 2 views Imaging Routine Bilateral hip pain Expected: 04/02/2023, Expires: 04/02/2024 [facility] Work Phone: Comment on above: Expected: 04/02/2023 , Expires: 04/02/2024 Start: 11-20-2022 Influenza vaccination Influenza Vacc ine [facility] Start: 1959 DTaP,Tdap and Td Vaccines (1 - Tdap) DTaP,Tdap and Td Vaccines (1 - Tdap) [facility] Start: 02-24-1956 Adult BMI Follow Up Plan Adult BMI Follow Up Plan [facility] Start: 1940 Medicare Annual Wellness Visit Medicare [facility] End: 05-23-2024 Hemoglobin A1c/Hemoglobin.total in Blood Hemoglobin A1c Lab Routine Hyperglycemia 1 Occurrences starting 05/24/2023 until 05/23/2024 [employer] Work Phone: Comment on above: 1 Occurrences starti ng 05/24/2023 until 05/23/2024 Hemoglobin A1c/Hemoglobin.total in Blood Hemoglobin A1c Lab Routine Hyperglycemia 05/24/2023 11:12 PM EST [facility] Immunizations Immunization Date Immunization Notes Care Provider Fa cility 05-25-2022 COVID-19, mRNA, LNP- S, PF, 100mcg/0.5mL Dose Veronica Chahal PAINT PREPARER-COSTUME TECHNICIAN Work Phone: [facility] 10-24-2021 zoster vaccine recombinant Veronica Chahal PAINT PREPARER-COSTUME TECHNICIAN Work Phone: [facility] 07-22-2021 zoster vaccine recombinant Veronica Chahal PAINT PREPARER-COSTUME TECHNICIAN Work Phone: [facility] 05-09-2021 Influenza, injectabl e, Madin Organ Canine Kidney, preservative free, quadrivalent Veronica Chahal PAINT PREPARER-COSTUME TECHNICIAN Work Phone: [facility] 05-09-2021 influenza virus vaccine, unspecified formulation Veronica Chahal PAINT PREPARER-COSTUME TECHNICIAN Work Phone: [facility] 07-05-2020 COVID-19 Vaccine Pfi zer - Documentation Purposes Only [employer] Other [employer] Other 06-07-2020 COVID-19 Vaccine Pfi zer - Documentation Purposes Only YolandaJildyerer Other [employer] Other 05-02-2018 influenza, seasonal, injectable, preservative free Veronica Chahal PAINT PREPARER-COSTUME TECHNICIAN Work Phone: [facility] 04-30-2018 zoster vaccine recombinant Yolanda Schwerer Other [employer] Other 01-06-2018 influenza, high dose seasonal, preservative-free Veronica Chahal PAINT PREPARER-COSTUME TECHNICIAN Work Phone: [employer] 01-06-2018 zoster vaccine recombinant Yolanda Schwerer Other [employer] Other 03-19-2017 pneumococcal conjuga te vaccine, 13 valent Yolanda Schwerer Other [employer] Other 02-25-2017 influenza, high dose seasonal, preservative-free Veronica Chahal PAINT PREPARER-COSTUME TECHNICIAN Work Phone: [employer] 04-27-2016 pneumococcal polysaccharide vaccine, 23 valent Yolanda Schwerer Other [employer] Other 12-18-2014 pneumococcal polysaccharide vaccine, 23 valent Yolanda Schwerer Other [employer] Other 12-18-2014 zoster vaccine, live Yolanda Schwerer Other [employer] Other 02-11-2009 zoster vaccine, live Yolanda Schwerer Other [employer] Other Payers Date Payer Category Payer Self-pay 2015 Unknown [id number] 2003 Medicare [id number] 2003 Medicare [id number] 2003 Medicare [id number] 1959 Medicare [id number] 1959 Unknown [id number] 2. [id number] 1938 Unknown [id number] 2.16.84 0.1.759038.3.579.2.593 1938 Unknown [id number] 2.16.8 40.1.832201.3.579.2.1286 1938 Unknown [id number] 2.16. 840.1.505524.3.579.2.196 1938 Unknown [id number] 2.16. 840.1.856614.3.579.2.196 1938 Unknown [id number] 2.16. 840.1.290740.3.579.2.196 1938 Unknown [id number] 2.16. 840.1.746010.3.579.2.196 1938 Unknown [id number] 2.16. 840.1.679120.3.579.2.196 1938 Unknown [id number] 2.16. 840.1.131934.3.579.2.196 1938 Unknown [id number] 2.16.84 0.1.141267.3.579.2.1259 1938 Unknown [id number] 2.16.84 0.1.771571.3.579.2.1259 1938 Unknown [id number] 2.16.8 40.1.659464.3.579.2.1286 1938 Unknown [id number] 2.16.8 40.1.528177.3.579.2.1286 1938 Unknown [id number] 2.16.8 40.1.860142.3.579.2.1286 1938 Unknown [id number] 2.16.8 40.1.743310.3.579.2.1286 1938 Unknown [id number] 2.16.8 40.1.266078.3.579.2.1286 1938 Unknown [id number] 2.16.84 0.1.929451.3.579.2.1286 Medicare [id number] 2.1 6.840.1.087069.19 Unknown [id number] 2.16.8 40.1.635872.3.579.2.531 Social History Date Type Detail Facility Unknown if ever smoked [employer] Other Start: 04-02-2023 End: 06-24-2023 Sex Assigned At [facility] Start: 01-06-2022 Tobacco smoking status NHIS Ex-smoker [facility] History of tobacco use Current smoker [facility] History of tobacco use Cigarette Smoker P [facility] Start: 01-06-2022 Tobacco use and exposure Smokeless tobacco non-user [facility] Start: 04-02-2023 End: 05-24-2023 Alcohol intake Ex-drinker (finding) [facility] [employer] [facility] Start: 04-02-2023 End: 06-24-2023 History of Social function [facility] Adolescent depressio n screening assessment 0 [facility] Start: 01-06-2022 Tobacco Comment only smoked for 3 months 60 years ago, 2 cigarettes a day [facility] Start: 10-15-2021 Alcohol Comment rare- on new years clive [facility] Start: 1940 Sex Assigned At Not on file [facility] Has the [employer], [employer], or [employer] threatened to shut off services in your home in past 12Mo No [facility] Do you belong to any clubs or organizations such as taoism groups, unions, fraternal or athletic groups, or school groups? Yes [facility] Are you now , , , , never or living with a partner? [facility] How often to you hav e a drink containing alcohol? Never [facility] Do you feel stress - tense, restless, nervous, or anxious, or unable to sleep at night because your mind is troubled all the time - these days [OSQ] Not at all [facility] Clinical Notes 04-18-2020 to 06-24-2023 Otis Chaves, DO - 06/24/2023 4:20 PM EDTOtis Chaves, DO - 05/25/2023 4:35 PM ESTSignificant Event - Otis Chaves, DO - 05/24/2023 6:08 PM ESTOtis Chaves, DO - 05/24/2023 2:00 PM EST Note [...] Do you have a durable power of associate attorney?: Yes Cognitive Screening Do you have trouble [...] year (around 06/23/2024). documented in this encounter [facility] 05-25-2023 History of Presen t illness Narrative Patient dropped off a urine to be tested documented in this encounter [facility] 05-24-2023 Progress note Formatting of t his note might be different from the original. She would only be 5, not 9 [facility] 05-24-2023 Miscellaneous Notes Formattin g of this note might be different from the original. She would only be 5, not 9 documented in this encounter [facility] 05-24-2023 History of Presen t illness [...] checks. She does have durable power of associate attorney of healthcare and finance. She also has [...] done as well. documented in this encounter [facility] [employer] 04-02-2023 History of Presen t illness Narrative [...] nursing note reviewed. Exam conducted with a endocrinology teacher present (ES Moncada present). Neck: Vascular: No [...] orders for this visit: PMR (polymyalgia rheumatica) ([facility]) - Ambulatory referral to Pain [...] El 04/02/23 1303 documented in this encounter [facility] 05-24-2022 Note PROCEDURE: XR HIP RT 2 [...] by: CAMILO ARNOLD Date: 2022-05-24 19:59 [facility] 03-24-2021 Evaluation note Encounter Date Diagnosis Assessment Notes Mar, Skin rash (ICD-10 - R21) i think eczema, will do clobetasol she already has this. will continue on lotramin. she will call in a few days if not improved. [employer] Other 03-11-2021 NoteHNO ID: [id number] Author: Negro Pompa Service: ? Author Type: Physician Type: Progress Notes Filed: 05/30/2020 6:55 PM Note Text: [facility] [...] questions and concerns were addressed. Negro Pompa, [facility]01-28-2021 NotePatient Outreach (COOCC3) ANGELIKA MUIR ([id number]) 1940 F Date Time Provider Department 04/18/20 PENNY RIBEIRO COVALDO3 During your visit today, we recorded the following information about you: Allergies As of Date: 04/18/2020 Noted Allergy Reaction TAPE (ADHESIVE TAPE (ROSINS)) 06/28/2012 2 - Rash Date Reviewed: 01/09/2020 Reviewed by: Niru Cunningham - Fully Assessed Order(s):SARS-COVID VACCINE 1ST DOSE APPT [[id number]] Order #: [id number] FUTURE Prescriptions as of 04/18/2020 Sig: SERTRALINE [...] 01/10/2014 Encounter Status:Closed by EPIC, PRODUSER on 04/22/20[facility] Evaluation noteNo [employer] Other Evaluation note* Diagnosis PMR (polymyalgia rheumatica) ([facility])- Primary Polymyalgia rheumatica Bilateral hip pain Pain in joint, pelvic region and thigh Confusion caused by a drug Drug-induced delirium documented [facility]* Diagnosis Bilateral hip pain- Primary Pain in joint, pelvic region and thigh [facility]* Diagnosis Abnormal kidney function- Primary Nonspecific abnormal results of kidney function study Hyperglycemia Other abnormal glucose Class 1 obesity due to excess calories with serious comorbidity and body mass index (BMI) of 31.0 to 31.9 in adult Memory impairment Memory loss documented in this encounter [facility]* Diagnosis Abnormal urinalysis- Primary Other nonspecific finding on examination of urine Abnormal kidney function Nonspecific abnormal results of kidney function study documented in this encounter [facility]* Diagnosis Medicare annual wellness visit, subsequent- Primary Screening for depression [facility] N[facility]ative - Reported* Type Description Date Medical History hx of Low BP Medical History vertigo Medical History depression Surgical History CARDIAC LOOP RECORDER IMPLANT Surgical History BILATERAL HIP ARTHROPLASTY Surgical History BILATERAL [facility] JOINT ARTHROPLAST Y Surgical History TRIGGER RELEASE RIGHT RING FING ER Surgical History BILATRAL FOOT SURGERY Surgical History LEFT TOTAL SHOULDER X2 Hospitalization History see surgical hx [employer] Other InstructionsNot on filedocumented in this encounter [facility] [employer] SystemInstructionsNot on filedocumented in this encounter [facility] [employer] SystemInstructionsNot on filedocumented in this encounter [facility] [employer] Summary Purpose Family History No Family History [...] Assessments Note Patient: ANGELIKA MUIR MR N: [id number] Age: 78 years Sex: Female : 1940 Associated Diagnoses: None Author: Elbert Gleason MD Assessment Assessment Diagnosis: Osteoarthritis (QEJ53-HH M17.11, 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 Right TKA. Dr. Vickers. [...] Pain is currently described as intermittent but snksujlu-dn-msptyq, particularly with activity. Symptoms have failed to respond to more conservative measures, and she now presents for surgical intervention. Please see below regarding the status of active medical conditions and assessment and plan for preoperative medical risk stratification. Medical Illnesses: 1. Osteoarthritis affecting (more content not included)... Note CLINICAL SUMMARY Please take this summary document to your follow up appointments. [facility] 02/02/19 09:32 [address] [place]. [address] PATIENT INFORMATION Name: ANGELIKA MUIR Address: [address] [place] [id number] Age: 78 Years Phone: [phone] : 1940 12:00 MRN: [id number] Sex: Female Race: White Ethnicity: Not Hispan/Lat Admitted From: Clinic or [facility] Medical Service: Orthopedic Surgery Nurse Unit/Bed: (OR) 2N 0219-01 Admit Date: 01/30/2019 05:59 PCP: Eduardo Rose MD PHYSICIANS INVOLVED WITH CARE Attending Physicians: Rancho SIEGEL , Amrik Sutton - Orthopaedic Surg Admitting Physician: Ranch[place] SIEGEL , Amrik Sutton - Orthopaedic Surg Primary Care Physician:Eduardo Rose MD,Internal Medicine, - Consults: Elbert Gleason MD - Internal Medicine RAMÍREZ Rod (more content not included)... Note Patient: ANGELIKA MUIR [id number] Age: 78 years Sex: Female : 1940 [...] (more content not included)... Note HNO ID: [id number] Author: Cheryle Wilcox (Aa) Service: ? 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 Staffing Anesthesiologist: Ihsan Gamino CAA: Ankur Wilcox (Aa) Indications and Patient Condition Preoxygenated: yes Patient position: sniffing Indications for airway management: anesthesia anesthesia circuit Method: asleep Final Airway Details Final airway type: supraglottic airway Final Supraglottic Airway: IGEL Size 4 Seal Adequate: yes SIGNATURE: AZ Gonzales PATIENT NAME: Angelika Hayesber DATE: May 01, 2020 TIME: 3:33 PM CSN: [id number] Note HNO ID: [id number] Author: Ariana Gay Service: Urology Author Type: Resident Type: Brief Op Note Filed: 05/01/2020 4:09 PM Note Text: BRIEF OPERATIVE / PROCEDURE NOTE LOG ID: [id number] SURGERY/PROCEDURE DATE: 05/01/2020 INCISION/PROCEDURE START TIME: 3:28 PM INCISION CLOSE/PROCEDURE END TIME: 4:05 PM SURGEON(S)/PROCEDURALIST(S) AND CABLE LAYER(S): Surgeon(s) and Role: * Negro Pompa - [...] SIGNATURE: Darron Gay MD PATIENT NAME: Angelika Hayesber DATE: May 01, 2020 TIME: 4:07 PM PAGER/CONTACT #: [phone] (more content not included)... Hospital Course Note CLINICAL SUMMARY Please take this summary document to your follow up appointments. [facility] 09:32 [address] [place]. [address] PATIENT INFORMATION Name: ANGELIKA MUIR Address: [address] [place] [id number] Age: 78 Years Phone: [phone] : 1940 12:00 MRN: [id number] Sex: Female Race: White Ethnicity: Not Hispan/Lat Admitted From: Clinic or [facility] Medical Service: Orthopedic Surgery Nurse Unit/Bed: (OR) 2N 0219-01 Admit Date: 01/30/2019 05:59 PCP: Eduardo Rose MD PHYSICIANS INVOLVED WITH CARE Attending Physicians: Rancho SIEGEL , Amrik Sutton - Orthopaedic Surg Admitting Physician: Rancho SIEGEL , Amrik Sutton - Orthopaedic Surg Primary Care Physician:Eduardo Rose MD,Internal Medicine, - Consults: Elbert Gleason MD - Internal Medicine RAMÍREZ Rod (more content not included)... Procedure Findings Note HNO ID: [id number] Author: Cheryle jones (Bree Wilcox Service: ? 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 Staffing Anesthesiologist: Ihsan Gamino CAA: Ankur Wilcox (Aa) Indications and Patient Condition Preoxygenated: yes Patient position: sniffing Indications for airway management: anesthesia anesthesia circuit Method: asleep Final Airway Details Final airway type: supraglottic airway Final Supraglottic Airway: IGEL Size 4 Seal Adequate: yes SIGNATURE: AZ Gonzales PATIENT NAME: Angelika Muir DATE: May 01, 2020 TIME: 3:33 PM CSN: [id number] Note HNO ID: [id number] Author: Ariana Gay Service: Urology Author Type: Resident Type: Brief Op Note Filed: 05/01/2020 4:09 PM Note Text: BRIEF OPERATIVE / PROCEDURE NOTE LOG ID: [id number] SURGERY/PROCEDURE DATE: 05/01/2020 INCISION/PROCEDURE START TIME: 3:28 PM INCISION CLOSE/PROCEDURE END TIME: 4:05 PM SURGEON(S)/PROCEDURALIST(S) AND CABLE LAYER(S): Surgeon(s) and Role: * Negro Pompa - [...] 01, 2020 TIME: 4:07 PM PAGER/CONTACT #: [phone] (more content not included)... Note Patient: ANGELIKA MUIR MR N: [id number] Age: 78 years Sex: Female : 1940 [...] Referred To Contact Diagnoses PMR (polymyalgia rheumatica) ([facility]) Veronica Chahal, PAINT PREPARER-COSTUME TECHNICIAN [address] [place] [address] Referral ID Status Reason Start Date Expiration Date V isits Requested Visits Authorized [id number] Pending Review 1 1 Specialty Diagnoses / Procedures Referred By Contac t Referred To Contact Pain Medicine Diagnoses PMR (polymyalgia rheumatica) ([facility]) Bilateral hip pain Veronica Chahal, PAINT PREPARER-COSTUME TECHNICIAN [address] [place] [address] [place] [address] Referral ID Status Reason Start Date Expiration Date V isits Requested Visits Authorized [id number] Pending Review 04/02/2023 04/01/2024 1 1 Additional Source Comments INFORMATION SOURCE (unrecogn ized section and content) DATE CREATED AUTHOR 09/09/2017 [facility] DATE CREATED AUTHOR AUTHOR'S ORGANIZ ATION 09/15/2017 [facility] DATE CREATED AUTHOR AUTHOR'S ORGANIZ ATION 02/06/2019 [facility] DATE CREATED AUTHOR AUTHOR'S ORGANIZ ATION 11/22/2019 [facility] DATE CREATED AUTHOR AUTHOR'S ORGANIZ ATION 05/08/2020 [facility] DATE CREATED AUTHOR AUTHOR'S ORGANIZ ATION 04/05/2021 [facility] DATE CREATED AUTHOR AUTHOR'S ORGANIZ ATION 05/31/2022 [facility] DATE CREATED AUTHOR AUTHOR'S ORGANIZ ATION 09/21/2022 [facility] DATE CREATED AUTHOR AUTHOR'S ORGANIZ ATION 05/26/2023 [facility] DATE CREATED AUTHOR AUTHOR'S ORGANIZ ATION 08/15/2023 [facility] DATE CREATED AUTHOR AUTHOR'S ORGANIZ ATION 10/22/2023 [facility] DATE CREATED AUTHOR AUTHOR'S ORGANIZ ATION 10/28/2023 [facility] Amb[facility] REASON FOR VISIT (unrecogniz ed section and content) Reason Comments Osteoarthritis Pain management Reason Comments Memory Loss Reason Comments medicare annual wellness Care Teams (unrecognized sec tion and content) [employer] Relationship Specialty Start Date End Date Otis Chaves DO [address] [place] [address] PCP - General Family Medicine 10/03/21 [employer] Relationship Specialty Start Date End Date Otis Chaves DO [address], [place] [address] PCP - General Family Medicine 10/03/21 [employer] Relationship Specialty Start Date End Date Otis Chaves DO [address] [place] [address] PCP - General Family Medicine 10/03/21 [employer] Relationship Specialty Start Date End Date Otis Chaves DO [address], [place] [address] PCP - General Family Medicine 10/03/21 [employer] Relationship Specialty Start Date End Date Otis Chaves DO [address], [place] [address] PCP - General Family Medicine 10/03/21 FOR [...] BE BASED ON THE PRIMARY CLINICAL RECORDS. [employer] provides no warranty or guarantee of the accuracy or completeness of information in this document.
--- NOTE | 2023-11-01 18:28 | ED.EXTPRO1 ---
HPI - Extremity Problem General Chief complaint: Extremity Problem, Nontraumatic Stated complaint: upper extremity swelling Time Seen by Provider: 11/01/23 17:50 Source: patient Mode of arrival: walk-in Limitations: no limitations History of Present Illness HPI Narrative: 83-year-old female presents for atraumatic swelling of the dorsum of her right hand. She has a history of arthritis. It has been like this for the last day or 2. She is right-handed. No other joint or extremity is hurting. The pain is mild to moderate. Related Data Home Medications ?Medication ?Instructions ?Recorded ?Confirmed donepezil 5 mg tablet mg 11/01/23 prednisone 5 mg tablet mg 11/01/23 Allergies Allergy/AdvReac Type Severity Reaction Status Date / Time No Known Drug Allergies Allergy Verified 11/01/23 17:59 Review of Systems ROS Narrative A ten point review of systems is negative except as noted above. PFSH PFSH Medical History Rheumatoid arthritis ?M06.9 - Rheumatoid arthritis, unspecified (ICD-10) H/O malignant neoplasm of breast ?Z85.3 - Personal history of malignant neoplasm of breast (ICD-10) Kidney stone ?N20.0 - Calculus of kidney (ICD-10) Smoker ?F17.200 - Nicotine dependence, unspecified, uncomplicated (ICD-10) Surgical History Status post total shoulder arthroplasty ?Z96.619 - Presence of unspecified artificial shoulder joint (ICD-10) H/O foot surgery ?Z98.890 - Other specified postprocedural states (ICD-10) H/O hand surgery ?Z98.890 - Other specified postprocedural states (ICD-10) S/P total knee arthroplasty ?Z96.659 - Presence of unspecified artificial knee joint (ICD-10) S/P total hip arthroplasty ?Z96.649 - Presence of unspecified artificial hip joint (ICD-10) H/O thumb surgery ?Z98.890 - Other specified postprocedural states (ICD-10) Hx of tonsillectomy ?Z90.89 - Acquired absence of other organs (ICD-10) Family History Other Lumbago Exam Narrative Exam Narrative: Nurses note and vital signs reviewed and patient is not hypoxic. General: The patient appears well and in no apparent distress. Patient is resting comfortably on cart. Skin: Warm, dry, no pallor noted. There is no rash noted. Head: Normocephalic, atraumatic Eye: Normal conjunctiva, no drainage Ears, Nose, Mouth, and Throat: oral mucosa is moist. Nares patent. Cardiovascular: Not tachycardic Respiratory: Patient is in no distress, no accessory muscle use, lungs are clear to auscultation, no wheezing, rales or rhonchi Back: non-tender GI: Soft and nontender Musculoskeletal: Her right hand is examined. There is some erythema and swelling of the dorsum particularly on the radial side. The wrist is nontender and nonswollen. The skin is intact. Neurological: A&O, normal speech Psychiatric: Cooperative Constitutional Vital Signs, click to edit/add: Last Vital Signs Temp 98.3 F 11/01/23 18:00 Pulse 102 H 11/01/23 18:00 Resp 16 11/01/23 18:00 BP 141/84 11/01/23 18:00 Pulse Ox 99 11/01/23 18:00 O2 Del Method Room Air 11/01/23 18:00 Course Vital Signs Vital signs: Vital Signs Temperature 98.3 F 11/01/23 18:00 Pulse Rate 102 H 11/01/23 18:00 Respiratory Rate 16 11/01/23 18:00 Blood Pressure 141/84 11/01/23 18:00 Pulse Oximetry 99 11/01/23 18:00 Oxygen Delivery Method Room Air 11/01/23 18:00 Temperature 98.3 F 11/01/23 18:00 Pulse Rate 102 H 11/01/23 18:00 Respiratory Rate 16 11/01/23 18:00 Blood Pressure 141/84 11/01/23 18:00 Pulse Oximetry 99 11/01/23 18:00 Oxygen Delivery Method Room Air 11/01/23 18:00 MDM - Extremity (Nontraumatic) MDM Narrative Medical decision making narrative: Hand x-ray is ordered and pending and the patient is signed out to Dr. Joseph at change of shift. I suspect that her symptoms may be due to arthritis. Clinically I do not suspect cellulitis. Differential Diagnosis Differential diagnosis: Likely other (Arthritis, cellulitis) Discharge Plan Discharge Patient Disposition: Still a Patient
--- NOTE | 2023-11-01 18:44 | XR_ITS ---
The [address] [address] Patient Name: AMISHA GARCIA MRN: [id number] date: 1940 Sex: F Assigned Patient Location: ED.MAIN Current Patient Location: Accession/Order Number: [id number] Exam Date: 11/01/2023 18:40 Report Date: 11/01/2023 19:39 At the request of: ESTELA CHUN Procedure: XR hand RT min 3V IMAGES REVIEWED: XR hand RT min 3V COMPARISON: None available. CLINICAL INDICATION: Atraumatic pain ? Arthritis FINDINGS/IMPRESSION: 1. Severe osteoarthritis second MCP joint. 2. 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 Small chronic radial-dorsal wrist ossicles. Chondrocalcinosis of the wrist. 3. Bones appear osteopenic. 4. No acute fracture or dislocation. Electronically authenticated by: JANA DOWNS Date: 11/01/2023 19:39
--- NOTE | 2023-11-01 19:14 | ED.EXTPRO1 ---
HPI - Extremity Problem General Chief complaint: Extremity Problem, Nontraumatic Stated complaint: upper extremity swelling Time Seen by Provider: 11/01/23 17:50 Source: patient Mode of arrival: walk-in Limitations: no limitations History of Present Illness HPI Narrative: This 83-year-old who is right-hand dominant and has a history of arthritis was signed out to me at shift change pending x-rays of the right hand. The patient was seen and evaluated. She has tenderness and mild erythema and swelling over the dorsal aspect of the right hand. She denies any injury. She states it was not like this yesterday. She woke up this morning with the redness swelling and pain. She has not had a fever. There is no lymphangitic streaking. I reviewed her x-rays. There is no notable foreign body or fracture. There are degenerative changes consistent with osteoarthritis. This was discussed with her. I do not see any break of her skin, bug bites or other cause for the erythema. She patient states the pain was too bad today to open up anything in her house to even have breakfast. She wishes to be discharged at this time because she is hungry. She has not taken any medications prior to arrival. She will be medicated with a dose of Tylenol and Keflex and be discharged home with a prescription for Naprosyn and Keflex. I encouraged her to soak her hand in warm Epsom salt water for comfort and in case there is an infection starting. She was placed in an Alexys wrap by myself for compression and comfort. Related Data Home Medications ?Medication ?Instructions ?Recorded ?Confirmed donepezil 5 mg tablet mg 11/01/23 prednisone 5 mg tablet mg 11/01/23 Allergies Allergy/AdvReac Type Severity Reaction Status Date / Time No Known Drug Allergies Allergy Verified 11/01/23 17:59 PFSH PFSH Medical History Rheumatoid arthritis ?M06.9 - Rheumatoid arthritis, unspecified (ICD-10) H/O malignant neoplasm of breast ?Z85.3 - Personal history of malignant neoplasm of breast (ICD-10) Kidney stone ?N20.0 - Calculus of kidney (ICD-10) Smoker ?F17.200 - Nicotine dependence, unspecified, uncomplicated (ICD-10) Surgical History Status post total shoulder arthroplasty ?Z96.619 - Presence of unspecified artificial shoulder joint (ICD-10) H/O foot surgery ?Z98.890 - Other specified postprocedural states (ICD-10) H/O hand surgery ?Z98.890 - Other specified postprocedural states (ICD-10) S/P total knee arthroplasty ?Z96.659 - Presence of unspecified artificial knee joint (ICD-10) S/P total hip arthroplasty ?Z96.649 - Presence of unspecified artificial hip joint (ICD-10) H/O thumb surgery ?Z98.890 - Other specified postprocedural states (ICD-10) Hx of tonsillectomy ?Z90.89 - Acquired absence of other organs (ICD-10) Family History Other Lumbago Exam Constitutional Vital Signs, click to edit/add: Last Vital Signs Temp 98.3 F 11/01/23 18:00 Pulse 102 H 11/01/23 18:00 Resp 16 11/01/23 18:00 BP 141/84 11/01/23 18:00 Pulse Ox 99 11/01/23 18:00 O2 Del Method Room Air 11/01/23 18:00 Course Vital Signs Vital signs: Vital Signs Temperature 98.3 F 11/01/23 18:00 Pulse Rate 102 H 11/01/23 18:00 Respiratory Rate 16 11/01/23 18:00 Blood Pressure 141/84 11/01/23 18:00 Pulse Oximetry 99 11/01/23 18:00 Oxygen Delivery Method Room Air 11/01/23 18:00 Temperature 98.3 F 11/01/23 18:00 Pulse Rate 102 H 11/01/23 18:00 Respiratory Rate 16 11/01/23 18:00 Blood Pressure 141/84 11/01/23 18:00 Pulse Oximetry 99 11/01/23 18:00 Oxygen Delivery Method Room Air 11/01/23 18:00 Discharge Plan Discharge Stand Alone Forms: Portal Instructions Chief Complaint: Extremity Problem, Nontraumatic Clinical Impression: Hand pain, right, Osteoarthritis Patient Disposition: Home, Self-Care Time of Disposition Decision: 19:13 Condition: Good Prescriptions / Home Meds: No Action donepezil 5 mg tablet prednisone 5 mg tablet Print Language: [place] Instructions: Osteoarthritis (ED), Arthralgia (ED) Referrals: FRANKI CHAVES [Primary Care Provider] - 1 week
[2023-11-01] MEDS: ACETAMINOPHEN 325 MG TABLET 650 MG PO (19:28)
[2023-11-01] MEDS: CEPHALEXIN 500 MG CAPSULE PO (19:29)
[2023-11-01 19:34] VITALS: BP 136/98; PULSE 98; O2SAT 100
== END 2023-11-01 19:25 | disposition home or self-care (01) ==
PROVIDERS: Emergency Provider Emergency Medicine; PCP Family Medicine
DX: M19.041 Primary osteoarthritis, right hand (principal); M79.641 Pain in right hand
CPT/HCPCS: 73130; 99283

== ENCOUNTER 2023-11-17 09:39 | Outpatient (OUT) | payer MEDICARE, OTHER, SELFPAY ==
--- NOTE | 2023-11-17 10:47 | P.CN_ITS ---
Consult Note: HPI Data of Consult Patient: known to practice within the last 3 years Consult date: 07/12/23 Requesting Physician: Jamaica Garcia NP Primary Care Provider: FRANKI CHAVES Consult Narrative Reason for consult: Low back, lower extremity pain Narrative: 83yof who presents for assessment. continues to have worsening pain from back to bilateral lower extremities. mri reviewed, which is significant for multilevel degeneration and multiple levels of stenosis, worst at l3-4 and l4-5. she continues to engage in provider directed home exercise, which she has attempted for >6 weeks with minimal benefit. utilizes gabapentin. denies adverse med side effects. previously underwent bilateral L3-4 TFESI and bilateral L4-5 TFESI under fluoroscopy with >50% improvement greater than 3 months. Patient noticing increase in right leg and thigh pain over the last month. pain today 01/0 increasing to 8/10 with standing walking and activity, improved with sitting. cc:: CC: Jamaica Garcia NP Review of Systems ROS Status of ROS 10 or more systems reviewed and unremark able except as noted in history and below Musculoskeletal Reports: back pain and extremity pain PFSH PFSH Medical History Rheumatoid arthritis ?M06.9 - Rheumatoid arthritis, unspecified (ICD-10) H/O malignant neoplasm of breast ?Z85.3 - Personal history of malignant neoplasm of breast (ICD-10) Kidney stone ?N20.0 - Calculus of kidney (ICD-10) Smoker ?F17.200 - Nicotine dependence, unspecified, uncomplicated (ICD-10) Surgical History Status post total shoulder arthroplasty ?Z96.619 - Presence of unspecified artificial shoulder joint (ICD-10) H/O foot surgery ?Z98.890 - Other specified postprocedural states (ICD-10) H/O hand surgery ?Z98.890 - Other specified postprocedural states (ICD-10) S/P total knee arthroplasty ?Z96.659 - Presence of unspecified artificial knee joint (ICD-10) S/P total hip arthroplasty ?Z96.649 - Presence of unspecified artificial hip joint (ICD-10) H/O thumb surgery ?Z98.890 - Other specified postprocedural states (ICD-10) Hx of tonsillectomy ?Z90.89 - Acquired absence of other organs (ICD-10) Family History Other Lumbago Meds Home Medications and Allergies Home Medications ?Medication ?Instructions ?Recorded ?Confirmed ?Type donepezil 5 mg tablet mg 11/01/23 History prednisone 5 mg tablet mg 11/01/23 History Allergies Allergy/AdvReac Type Severity Reaction Status Date / Time No Known Drug Allergies Allergy Verified 11/01/23 17:59 Exam Constitutional Documenting provider has reviewed patient's vital signs: yes Common normals: no apparent distress, oriented x3, healthy appearing, alert and well nourished General appearance: cooperative HENMT Common normals: normocephalic, hearing grossly normal bilaterally and moist oral mucous membranes Head and scalp: normocephalic Eye Common normals: PERRL Pupil: PERRL Neck & C-Spine Common normals: full ROM General: normal visual inspection Chest Common normals: inspection of chest normal Respiratory Common normals: normal respiratory effort, no retractions and no use of accessory muscles Back & Pelvis Thoracic spine/upper back: normal to inspection Lumbar spine/lower back: normal to inspection, ROM limited and straight leg raise positive right Sacroiliac joints: SI joint(s) abnormal Other: positive right SLR, altered sensation to right L3,4,5 dermatomal pattern strength in RLE 4/5 LLE 5/5 right SIJ positive isabelle(patricks), gaenslens, thigh thrust, compression test Extremity Common normals: normal to inspection and full ROM Other: pain in right groin with internal log roll Neuro Common normals: oriented x3, CN's II-XII intact bilaterally, moves all extremities, no focal motor deficits, no sensory deficits noted and deep tendon reflexes 2+ bilaterally Sensorium/orientation: alert Motor exam: no movement abnormalities noted and strength abnormal Psych Common normals: mental status grossly normal, thought process normal, cooperative, affect normal, speech normal and activity/motor behavior normal Speech: normal speech Thought process: normal thought process Results Additional Findings Additional findings: If on a controlled substance or opioids, I have checked an [place] report on this patient and there are no aberrancies noted in the prescribing history.??If on a controlled substance or opioid a drug screen was completed and reviewed within the last year, and if there has not been a drug screen completed we ordered one today to monitor higher risk, state monitored pain medication use. As part of providing excellent, safe, comprehensive care, the following was completed at our patient's visit: 1. A medication reconciliation and review to ensure accurate knowledge of current/active medications, including asking our patients to inform us about any [id number] medications or herbal remedies/nutritional supplements/alternative remedies. 2. A review to specifically ensure our patients have had annual screening for screening for depression, screening for tobacco use, and screening for unhealthy alcohol use. For concerning screenings had a discussion with the patient, provided patient education, and recommended follow-up with primary care provider when appropriate. If patient noted with a risk of falling, they received education on strength, gait, and balance training to prevent future risk of falling. Assessment and Plan Assessment and Plan (1) Lumbar stenosis with neurogenic claudication: (2) Lumbar spondylosis: (3) Right hip pain: Assessment and Plan: declining further workup (4) Sacroiliitis: Plan right L3-4 L4-5 TFESI under fluoroscopy for lumbar stenosis with NC, previous injection provided >50% improvement greater than 3 months. risks vs benefits reviewed. right SIJ injection under fluoroscopy for sacroiliitis, risks vs benefits reviewed continue current medications, tolerating well without side effects f/u 2 weeks after injections complete
== END 2023-11-17 09:40 | disposition home or self-care (01) ==
LOC: PM 09:42
PROVIDERS: PCP Family Medicine; Visit Provider Nurse Practitioner
DX: M48.062 Spinal stenosis, lumbar region with neurogenic claudication (principal); M47.816 Spondylosis without myelopathy or radiculopathy, lumbar region; M25.551 Pain in right hip; M46.1 Sacroiliitis, not elsewhere classified
CPT/HCPCS: G0463

== ENCOUNTER 2023-12-06 11:04 | Day surgery (SDC) | payer MEDICARE, OTHER, SELFPAY ==
[2023-12-06 11:17] VITALS: BP 129/77; PULSE 102; TEMP 36.4; O2SAT 98
--- OUTSIDE RECORDS SUMMARY | 2023-12-06 11:22 | XMS_ITS | CCD ---
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 Role Phone , JOSE LUIS Y Unavailable Unavailable SELF, SELF Unavailable Unavailable EDUARDO ROSE P Unavailable Unavailable LIZAMA, JOSE LUIS Y Unavailable Unavailable LIZAMA, JOSE LUIS Y Unavailable Unavailable EDUARDO ROSE P Unavailable Unavailable ANKUR FRANCE Unavailable Unavailable ANKUR FRANCE Unavailable Unavailable ROSE, EDUARDO Unavailable Unavailable ROSE, EDUARDO Unavailable Unavailable Yolanda Calvo Unavailable SABINA ., DR SARIKA Osullivan Attending Unavailable MUHAMMAD ., DR SARIKA Osullivan Admitting Unavailable MUHAMMAD ., DR SARIKA Osullivan Consulting Unavailable MISC, DR GARVEY Primary Care Unavailable MISC, DR GARVEY Consulting Unavailable ZIEBER, DR IHSAN Lane Consulting Unavailable ESTELA CHUN Consulting Unavailable OJRY MCMILLAN Consulting Unavailable CAMILO ARNOLD Consulting Unavailable JELANI MAR Consulting Unavailable ALVINO BENITEZ Consulting Unavailable MARIA ELENA GRAHAM Consulting Unavailable SISTER, WALI Consulting Unavailable Otis Chaves DO Primary Care Provider OTIS CHAVES Referring Unavailable OTIS CHAVES Primary Care Unavailable Gimichael SIEGEL, Tony Rodríguez Attending Unavailable Giedraitis , Tony Rodríguez Attending Unavailable Gimichael SIEGEL, Andmare Rodríguez Attending Unavailable Chelsie SIEGEL, Tony Rodríguez Attending Unavailable Chelsie SIEGEL, Tony Rodríguez Attending Unavailable Chelsie SIEGEL, Tony Rodríguez Attending Unavailable MAGNO KO Attending Unavailable OTIS CHAVES Referring Unavailable OTIS CHAVES Attending Unavailable OTIS CHAVES Referring Unavailable OTIS CHAVES Primary Care Unavailable FURLONG, OTIS G Attending [...] Unavailable FURLONG, OTIS G Primary Care Unavailable DO Yolanda Calvo Primary Care Provider [phone] DO Rita Corado Emergency Provider Yolanda Calvo Primary Care Unavailable Rita Corado Attending Unavailable Rita Corado Admitting Unavailable Allergies Allergy Classification Reported Allergen(s) Allergy Type Date of Onset Reaction(s) Facility (1 source) 06363,00; Translations: [20305,] Propensity to adverse reactions (disorder) 9 [facility] (7 sources) Adhesive agent; Translations: [ADHESIVE] Propensity to adverse reactions to drug 3 Rash [facility] (7 sources) Fludrocortisone ; Translations: [FLUDROCORTISON E] Drug Allergy 2 Other (See Comments) [facility] (7 sources) Other; Translations: [OTHER] Propensity to adverse reactions 6 [facility] Medications Current Medications Medication Drug Class(es) Dates Sig (Normalized) Sig (Original) celecoxib 200 mg oral capsule (7 sources) Nonsteroidal Anti-inflammatory Drug Start: 09-19-2017 take 200 mg by mouth once daily Celecoxib Active 200 MG PO Daily September 19, 2017 12:00am cephalexin 500 mg oral capsule (5 sources) Cephalosporin Antibacterial Start: 02-28-2021 take 500 mg by mouth four times daily Cephalexin Active 500 MG PO Four times daily February 28, 2021 1:00am Clotrimazole (2 sources) Azole Antifungal Start: 04-21-2021 Clotrimazole 1 % 1 application Externally Twice a day for 28 day(s) Mar, Active Start: 04-21-2021 Clotrimazole 1 % 1 application Externally Twice a day for 28 day(s) Mar, Active fludrocortisone acetate 0.1 mg oral tablet (1 source) Start: 09-19-2017 take 0.1 mg by mouth once daily Fludrocortisone Active 0.1 MG PO Daily September 19, 2017 12:00am furosemide 40 mg oral tablet (6 sources) [...] succinate 25 mg extended release oral tablet (13 sources) beta-Adrenergi c Antionette Start: 09-19-2017 take 75 mg by mouth once daily Metoprolol Succinate Active 75 MG PO Daily September 19, 2017 12:00am take 1 tablet by mariama th every twenty-four hours Metoprolol Succinate ER 25 MG 1 tablet Orally Once a day for 30 day(s) takes to equal 75mg Active take 1 tablet by mariama th every twenty-four hours Metoprolol Succinate ER 50 MG 1 tablet Orally Once a day for 30 day(s) takes to equal 75mg Active mupirocin 0.02 mg/mg topical ointment (7 sources) RNA Synthetase Inhibitor Antibacterial Start: 02-28-2021 Mupirocin Active 1 APPLIC TOPICAL Twice daily February 28, 2021 1:00am Mupirocin 2 % 1 application Externally Twice a day Active microencapsulated potassium chloride 20 meq extended release oral tablet (7 sources) Start: 09-19-2017 take 20 mEq by mouth once daily Potassium Chloride Active 20 MEQ PO Daily September 19, 2017 12:00am predniSONE 5 mg oral tablet (5 sources) Start: 03-24-2023 take 1 tablet by mouth in the morning predniSONE (DELTASONE) 5 mg tablet Take 1 tablet (5 mg total) by mouth in the morning. 0 03/24/2023 Active pregabalin 50 mg oral capsule (2 sources) Start: 04-02-2023 End: 04-19-2023 take 1 capsule by mouth in the morning pregabalin (LYRICA) 50 mg capsule Indications: PMR (polymyalgia rheumatica) (CMS-HCC) Take 1 capsule (50 mg total) by mouth in the morning. 30 capsule 2 04/02/2023 04/19/2023 Discontinued (Patient Never Started This Medication) zolpidem tartrate 5 mg oral tablet (6 sources) gamma-Aminobut yric Acid-ergic Agonist take 1 tablet by mouth [...] mg Start: 01-17-2018 Supartz Dec 25 mg hydroCHLOROthiazide 25 mg oral tablet (1 source) Thiazide Diuretic Start: 09-19-2017 End: 02-28-2021 Hydrochlorothiazide Discontinued TABLET September 19, 2017 12:00am February 28, 2021 3:20pm naproxen 250 mg oral tablet (3 sources) Nonsteroidal Anti-inflammatory Drug End: 05-24-2023 take 1 tablet by mouth in the morning, then take 1 tablet by mouth at mealtime naproxen (NAPROSYN) 250 mg tablet Take 1 tablet (250 mg total) by mouth in the morning and 1 tablet (250 mg total) in the evening. Take with meals. 0 05/24/2023 Discontinued (Therapy completed) sertraline 50 mg oral tablet (1 source) Serotonin Reuptake Inhibitor Start: 09-19-2017 End: 02-28-2021 Sertraline Discontinued TABLET September 19, 2017 12:00am February 28, 2021 3:20pm terbinafine 250 mg oral tablet (1 source) Allylamine Antifungal Start: 09-19-2017 End: 02-28-2021 Terbinafine Hcl Discontinued TABLET September 19, 2017 12:00am February 28, 2021 3:22pm Triamcinolone (2 sources) Corticosteroid Start: 11-16-2017 Kenalog -40 mg 28 Oct, 2017 10 mg Start: 09-19-2017 End: 02-28-2021 Triamcinolone Acetonide Disc ontinued September 19, 2017 12:00am February 28, 2021 3:22pm Problems Active Problems Problem Classification Problem Date Documented Date Episodic/Chronic Abdominal pain (2 sources) Abdominal pain; Translations: [Unspecified abdominal pain] Onset: 11-06-2023 11-07-2023 Episodic Asthma (5 sources) Asthma; Translations: [Unspecified asthma, uncomplicated] Onset: 11-28-2021 11-28-2021 Chronic Coronary atherosclerosis and other heart disease (6 sources) Atherosclerotic heart disease of [place] coronary artery without angina pectoris; Translations: [Coronary atherosclerosis] Onset: 01-13-2012 11-28-2021 Chronic Genitourinary symptoms and ill-defined conditions (10 sources) Mixed urinary incontinence; Translations: [Mixed incontinence] Onset: 11-28-2021 11-28-2021 Chronic Osteoarthritis (13 sources) Osteoarthritis of right knee joint; Translations: [Unilateral primary osteoarthritis, right knee] Onset: 04-02-2023 Chronic Other aftercare (1 source) Other roasterman (current) drug therapy; Translations: [OTH HALF-WAY CURRENT DRUG THERAPY] Onset: 05-28-2022 Episodic Other connective tissue disease (2 sources) Polymyalgia rheumatica; Translations: [POLYMYALGIA RHEUMATICA] Onset: 05-28-2022 Chronic Other connective tissue disease (1 source) Presence of artificial hip joint, bilateral; Translations: [PRESENCE ARTIFICIAL HIP JOINT BILAT] Onset: 05-28-2022 Chronic Other connective tissue disease (6 sources) Polymyalgia rheumatica; Translations: [Polymyalgia rheumatica] Onset: [...] index (BMI) 31.0-31.9, adult] Onset: 05-24-2023 Chronic Other skin disorders (1 source) Chronic disease of skin; Translations: [Disorder of the skin and subcutaneous tissue, unspecified] 02-28-2021 Episodic Residual codes; unclassified (5 sources) Obstructive sleep [...] 11-27-2021 11-27-2021 Episodic Other aftercare (1 source) USP (current) use of aspirin; Translations: [HALF-WAY (CURRENT) USE OF ASPIRIN] Onset: 11-06-2016 Episodic [...] Test Name Value Interpretation Reference Range Facility Alanine aminotransferase [En zymatic activity/volume] in Serum or PlasmaOrdered By: Rita Corado on 11-07-2023 ALT [Catalytic activity/Vol] 5 U/L Low 7-52 [facility] Comment on above: Performed By: #### H EPATIC, LIPASE, BMP, DIFF CBC #### [facility] [address] [place] [id number] [place] Albumin [Mass/volume] in Ser um or Plasma by Bromocresol green (BCG) dye binding methoOrdered By: Rita Corado on 11-07-2023 Albumin BCG dye [Mass/Vol] 3.5 g/dL 3.5-5.7 [facility] Alkaline phosphatase [Enzyma tic activity/volume] in Serum or PlasmaOrdered By: Rita Corado on 11-07-2023 ALP [Catalytic activity/Vol] 77 U/L Normal 34-104 [facility] Comment on above: Performed By: #### H EPATIC, LIPASE, BMP, DIFF CBC #### [facility] [address] [place] [id number] [place] Aspartate aminotransferase [ Enzymatic activity/volume] in Serum or PlasmaOrdered By: Rita Corado on 11-07-2023 AST [Catalytic activity/Vol] 10 U/L Low 13-39 [facility] Comment on above: Performed By: #### H EPATIC, LIPASE, BMP, DIFF CBC #### [facility] [address] Basic Metabolic Panelon 10-20 Creatinine Clr Calc Pharmacy 40.73 Normal [facility] Comment on above: Performed By: #### H EPATIC, LIPASE, BMP, DIFF CBC #### [facility] [address] GFR/1.73 sq M.predicted MDRD (S/P/Bld) [Vol rate/Area] 59.463 mL/min/{1.73_m2} Normal [facility] Comment on above: Performed By: #### H EPATIC, LIPASE, BMP, DIFF CBC #### [address] Basophils Auto (Bld) [#/Vol] Ordered By: Rita Corado on 11-07-2023 Basophils (Bld) [#/Vol] N/A [facility] Basophils/100 WBC Auto (Bld) Ordered By: Rita Corado on 11-07-2023 Basophils/100 WBC (Bld) N/A [facility] Bilirubin Test strip Ql (U)O rdered By: Rita Corado on 11-07-2023 Bilirubin Ql (U) Negative Negative [facility] Bilirubin.direct [Mass/volum e] in Serum or PlasmaOrdered By: Rita Corado on 11-07-2023 Bilirubin.direct [Mass/Vol] 0.10 mg/dL 0.03-0.18 [facility] Bilirubin.total [Mass/volume ] in Serum or PlasmaOrdered By: Rita Corado on 11-07-2023 Bilirubin [Mass/Vol] 0.5 mg/dL Normal 0.3-1.0 [facility] Comment on above: Performed By: #### H EPATIC, LIPASE, BMP, DIFF CBC #### [facility] [address] [place] [address] [facility] CT abdomen pelvis w conon CT abdomen pelvis w con [facility] [place] [address] [place] [id number] [address] Scan Report Signed Patient: Angelika Muir MR#: [id number] : 1940 Acct:[id number] Age/Sex: 83 / F ADM Date: 11/06/23 Loc: ER Room: Type: [facility] ER Attending Dr: Copies to: Rita Corado DO Ordering Provider: Rita Corado DO Date of Service: 11/07/23 CT/CT abdomen pelvis w con: abd pain CT abdomen pelvis w con 11/07/2023 1:17 AM SIGNS AND SYMPTOMS: Epigastric pain, bloating TECHNIQUE: Multidetector ct axial images of the abdomen and pelvis were obtained with IV contrast. Multiplanar reformats were performed and reviewed to further define anatomy and possible pathology. CT was performed with one or more of the following dose reduction techniques: Automated exposure control, adjustment of the mA and/or kV according to patient size, or use of iterative reconstruction technique. COMPARISON: 10/12/2017. FINDINGS: Lower Chest: Atherosclerotic changes are present in the thoracic aorta. ABDOMEN: Liver: Within normal limits. Bile Ducts: Normal caliber. Gallbladder: Previously removed. Pancreas: Within normal limits. Spleen: Within normal limits. Adrenals: Within normal limits. Kidneys: There is a simple cyst in the left renal cortex requiring no further follow-up. Pelvis: Reproductive Organs: No pelvic masses. Ureters: Within normal limits. Bladder: Within normal limits. Bowel: There are uncomplicated diverticula. There is no evidence of bowel obstruction. Mesenteric Lymph Nodes: No enlarged mesenteric lymph nodes. Peritoneum: No ascites or free air, no fluid collection. Vessels: Atherosclerotic changes are noted in the abdominal aorta and its branches. Retroperitoneum: There is a small fluid attenuating collection within the right iliopsoas measuring approximately 2 cm. This is of uncertain etiology but may represent a hematoma or abscess. Abdominal Wall: Within normal limits. Bones: Degenerative changes are noted in the thoracolumbar spine and sacroiliac joints. There is total hip arthroplasty hardware bilaterally. CT/CT abdomen pelvis w con IMPRESSION: There is a small fluid attenuating collection within the right iliopsoas measuring approximately 2 cm. This is of uncertain etiology but may represent a hematoma or abscess. No bowel obstruction or obstructive uropathy. Impression dictated by: Martínez Smith M.D.11/07/2023 2:53 PM Dictation Location: [place] [address] Transcribed By: JOSE 11/07/23 1453 Dictated By: Martínez Smith II, MD 11/07/23 1444 Signed By: 11/07/23 1453 Normal [facility] Calcium [Mass/volume] in Ser um or PlasmaOrdered By: Rita Corado on 11-07-2023 Calcium [Mass/Vol] 9.0 mg/dL Normal 8.6-10.3 [facility] Comment on above: Performed By: #### H EPATIC, LIPASE, BMP, DIFF CBC #### [facility] [address] [place] [address] [place] Carbon dioxide, total [Moles /volume] in Serum or PlasmaOrdered By: Rita Corado on 11-07-2023 CO2 [Moles/Vol] 29.8 mmol/L Normal 21.0-31.0 [facility] Comment on above: Performed By: #### H EPATIC, LIPASE, BMP, DIFF CBC #### [facility] [address] [place] [id number] [place] Chloride [Moles/volume] in S ricky or PlasmaOrdered By: Rita Corado on 11-07-2023 Chloride [Moles/Vol] 101 mmol/L Normal 98-107 [facility] Comment on above: Performed By: #### H EPATIC, LIPASE, BMP, DIFF CBC #### [facility] [address] [place] [id number] [place] Color of Urine by AutoOrdere d By: Rita Corado on 11-07-2023 Color (U) Light-yellow Normal Yellow [facility] Comment on above: Order Comment: Name Collection Type:: Clean-Voided Midstream Performed By: #### U A #### [place] [id number] [place] Creatinine [Mass/volume] in Serum or PlasmaOrdered By: Rita Corado on 11-07-2023 Creatinine [Mass/Vol] 0.94 mg/dL Normal 0.60-1.20 [facility] Comment on above: Performed By: #### H EPATIC, LIPASE, BMP, DIFF CBC #### [address] Diff and CBCon 11-07-2023 Mean Corpuscular HGB Conc 33.4 g/dL Normal 32.0-35.0 [facility] Comment on above: Performed By: #### H EPATIC, LIPASE, BMP, DIFF CBC #### [address] Monocytes/100 WBC (Bld) 21.51 % High 0.00-20.00 [facility] Comment on above: Result Comment: For adults in ED, MDW > 20.0 may be associated with a higher risk of sepsis during the first 12 hrs of hospital admission Performed By: #### H EPATIC, LIPASE, BMP, DIFF CBC #### [address] Platelet Estimate Normal Normal Normal [facility] Comment on above: Performed By: #### H EPATIC, LIPASE, BMP, DIFF CBC #### [address] Platelet Morphology Normal Normal Normal [facility] Comment on above: Result Comment: PERF ORMED BY: [place] [address] PATHOLOGIST FURNACE LOADER JORGE LUIS RUELAS M.D. Performed By: #### H EPATIC, LIPASE, BMP, DIFF CBC #### [address] Eosinophils Auto (Bld) [#/Vo l]Ordered By: Rita Corado on 11-07-2023 Eosinophils (Bld) [#/Vol] N/A [facility] Eosinophils/100 WBC Auto (Bl d)Ordered By: Rita Corado on 11-07-2023 Eosinophils/100 WBC (Bld) N/A [facility] Erythrocyte distribution wid th [Ratio] by Automated countOrdered By: Rita Corado on 11-07-2023 Erythrocyte distribution width (RBC) [Ratio] 14.2 % Normal 11.9-15.3 [facility] Comment on above: Performed By: #### H EPATIC, LIPASE, BMP, DIFF CBC #### [facility] [address] Erythrocytes [#/volume] in B lood by Automated countOrdered By: Rita Corado on 11-07-2023 RBC (Bld) [#/Vol] 3.89 10*6/uL Normal 3.60-5.00 [facility] Comment on above: Performed By: #### H EPATIC, LIPASE, BMP, DIFF CBC #### [facility] [address] Glucose [Mass/volume] in Ser um or PlasmaOrdered By: Rita Corado on 11-07-2023 Glucose [Mass/Vol] 98 mg/dL Normal 70-100 [facility] Comment on above: ADA recommended refe rence rangeRandom Glucose Reference Range is dependent on time and content of last meal. Glucose of more than 200 mg/dL in a nonstressed, ambulatory subject supports the diagnosis of Diabetes Mellitus. Result Comment: [place] Glucose Reference Range is dependent on time and content of last meal. Glucose of more than 200 mg/dL in a nonstressed, ambulatory subject supports the diagnosis of Diabetes Mellitus. ADA recommended reference range Performed By: #### H EPATIC, LIPASE, BMP, DIFF CBC #### [facility] [address] Glucose [Mass/volume] in Uri ne by Test stripOrdered By: Rita Corado on 11-07-2023 Glucose Test strip (U) [Mass/Vol] Normal mg/dL Normal [facility] Hematocrit [Volume Fraction] of Blood by Automated countOrdered By: Rita Corado on 11-07-2023 Hematocrit (Bld) [Volume fraction] 32.8 % Low 34.0-46.4 [facility] Comment on above: Performed By: #### H EPATIC, LIPASE, BMP, DIFF CBC #### [facility] [address] Hemoglobin Test strip Ql (U) Ordered By: Rita Corado on 11-07-2023 Hemoglobin Ql (U) Negative Negative [facility] Hemoglobin [Mass/volume] in BloodOrdered By: Rita Corado on 11-07-2023 Hemoglobin (Bld) [Mass/Vol] 11.0 g/dL Low 11.8-15.4 [facility] Comment on above: Performed By: #### H EPATIC, LIPASE, BMP, DIFF CBC #### [address] Hepatic Panelon 11-07-2023 Albumin [Mass/Vol] 3.5 g/dL Normal 3.5-5.7 [facility] Comment on above: Performed By: #### H EPATIC, LIPASE, BMP, DIFF CBC #### [address] Bilirubin,Indirect 0.4 mg/dL Normal [facility] Comment on above: Performed By: #### H EPATIC, LIPASE, BMP, DIFF CBC #### [address] Bilirubin.indirect [Mass/Vol] 0.10 mg/dL Normal 0.03-0.18 [facility] Comment on above: Performed By: #### H EPATIC, LIPASE, BMP, DIFF CBC #### [address] Ketones [Presence] in Urine by Test stripOrdered By: Rita Corado on 11-07-2023 Ketones Ql (U) Negative Normal Negative [facility] Comment on above: Order Comment: Name Collection Type:: Clean-Voided Midstream Performed By: #### U A #### [address] Leukocyte esterase [Presence ] in Urine by Test stripOrdered By: Rita Corado on 11-07-2023 Leukocyte esterase Test strip Ql (U) Negative Normal Negative [facility] Comment on above: Order Comment: Name Collection Type:: Clean-Voided Midstream Performed By: #### U A #### [address] [place] [address] [place] Leukocytes [#/volume] correc isabela for nucleated erythrocytes in Blood by Automated counOrdered By: Rita Corado on 11-07-2023 WBC corrected for nucl RBC Auto (Bld) [#/Vol] 6.7 10*3/uL 3.8-11.6 [facility] Leukocytes [#/volume] in Blo od by Automated countOrdered By: Rita Corado on 11-07-2023 WBC (Bld) [#/Vol] 6.7 10*3/uL Normal 3.8-11.6 [facility] Comment on above: Performed By: #### H EPATIC, LIPASE, BMP, DIFF CBC #### [facility] [address] [place] [address] Lipase [Enzymatic activity/v olume] in Serum or PlasmaOrdered By: Rita Corado on 11-07-2023 Lipase [Catalytic activity/Vol] 32.0 U/L Normal 11.0-82.0 [facility] Comment on above: Result Comment: PERF ORMED BY: [place] [address] PATHOLOGIST FURNACE LOADER JORGE LUIS RUELAS M.D. Performed By: #### H EPATIC, LIPASE, BMP, DIFF CBC #### [address] Lymphocytes Auto (Bld) [#/Vo l]Ordered By: Rita Corado on 11-07-2023 Lymphocytes (Bld) [#/Vol] N/A [facility] Lymphocytes/100 WBC Auto (Bl d)Ordered By: Rita Corado on 11-07-2023 Lymphocytes/100 WBC (Bld) N/A [facility] Lymphocytes/100 leukocytes i n Blood by Manual countOrdered By: Rita Corado on 11-07-2023 Lymphocytes/100 WBC (Bld) 22 % Normal 18-42 [facility] Comment on above: Performed By: #### H EPATIC, LIPASE, BMP, DIFF CBC #### [facility] [address] [place] [address] [place] MCH [Entitic mass] by Automa isabela countOrdered By: Rita Corado on 11-07-2023 MCH (RBC) [Entitic mass] 28.2 pg Normal 24.7-34.3 [facility] Comment on above: Performed By: #### H EPATIC, LIPASE, BMP, DIFF CBC #### [facility] [address] [place] [address] MCHC Auto (RBC) [Mass/Vol]Or dered By: Rita Corado on 11-07-2023 MCHC (RBC) [Mass/Vol] 33.4 g/dL 32.0-35.0 [facility] MCV [Entitic volume] by Auto mated countOrdered By: Rita Corado on 11-07-2023 MCV (RBC) [Entitic vol] 84.4 fL Normal 80-100 [facility] Comment on above: Performed By: #### H EPATIC, LIPASE, BMP, DIFF CBC #### [facility] [address] [place] [address] Manual blood segmented neutr ophils/100 leukocytesOrdered By: Rita Corado on 11-07-2023 Segmented neutrophils/100 WBC (Bld) 73 % High 50-70 [facility] Comment on above: Performed By: #### H EPATIC, LIPASE, BMP, DIFF CBC #### [facility] [address] [place] [address] Monocyte distribution width [Entitic volume] in Blood by AutomatedOrdered By: Rita Corado on 11-07-2023 Monocyte distribution width Auto (Bld) [Entitic vol] 21.51 % High 0.00-20.00 [facility] Comment on above: For adults in ED, MD W > 20.0 may be associated with a higher risk of sepsis during the first 12 hrs of hospital admission Monocytes Auto (Bld) [#/Vol] Ordered By: Rita Corado on 11-07-2023 Monocytes (Bld) [#/Vol] N/A [facility] Monocytes/100 WBC Auto (Bld) Ordered By: Rita Corado on 11-07-2023 Monocytes/100 WBC (Bld) N/A [facility] Monocytes/100 leukocytes in Blood by Manual countOrdered By: Rita Corado on 11-07-2023 Monocytes/100 WBC (Bld) 5 % Normal 2-11 [facility] Comment on above: Performed By: #### H EPATIC, LIPASE, BMP, DIFF CBC #### [facility] [address] [place] [address] [place] Neutrophils Auto (Bld) [#/Vo l]Ordered By: Rita Corado on 11-07-2023 Neutrophils (Bld) [#/Vol] N/A [facility] Neutrophils/100 WBC Auto (Bl d)Ordered By: Rita Corado on 11-07-2023 Neutrophils/100 WBC (Bld) N/A [facility] Nitrite Test strip Ql (U)Ord ered By: Rita Corado on 11-07-2023 Nitrite Ql (U) Negative Negative [facility] No Panel InformationOrdered By: Rita Corado on 11-07-2023 Estimated GFR (CKD-EPI) 59.463 mL/Min [facility] Creatinine Clearance (Chem 40.73 [facility] Nucleated erythrocytes [Pres ence] in Blood by Automated countOrdered By: Rita Corado on 11-07-2023 Nucleated RBC Auto Ql (Bld) N/A [facility] Platelet adequacy [Presence] in Blood by Light microscopyOrdered By: Rita Corado on 11-07-2023 Platelets LM Ql (Bld) Normal Normal [facility] Platelet mean volume [Entiti c volume] in Blood by Automated countOrdered By: Rita Corado on 11-07-2023 Platelet mean volume (Bld) [Entitic vol] 7.3 fL Normal 6.3-10.7 [facility] Comment on above: Performed By: #### H EPATIC, LIPASE, BMP, DIFF CBC #### [facility] [address] Platelet morphology finding [Identifier] in BloodOrdered By: Rita Corado on 11-07-2023 Platelet morphology finding Nom (Bld) Normal Normal [facility] Platelets [#/volume] in Bloo d by Automated countOrdered By: Rita Corado on 11-07-2023 Platelets (Bld) [#/Vol] 326 10*3/uL Normal 150-450 [facility] Comment on above: Performed By: #### H EPATIC, LIPASE, BMP, DIFF CBC #### [facility] [address] [place] [address] Potassium [Moles/volume] in Serum or PlasmaOrdered By: Rita Corado on 11-07-2023 Potassium [Moles/Vol] 3.9 mmol/L Normal 3.5-5.1 [facility] Comment on above: Performed By: #### H EPATIC, LIPASE, BMP, DIFF CBC #### [address] Protein Test strip (U) [Mass /Vol]Ordered By: Rita Corado on 11-07-2023 Protein (U) [Mass/Vol] Negative Negative [facility] Protein [Mass/volume] in Ser um or PlasmaOrdered By: Rita oCrado on 11-07-2023 Protein [Mass/Vol] 6.9 g/dL Normal 6.4-8.9 [facility] Comment on above: Performed By: #### H EPATIC, LIPASE, BMP, DIFF CBC #### [address] RBC morphologyOrdered By: Kings Corado on 11-07-2023 RBC morphology finding Nom (Bld) Normal Normal [facility] Comment on above: Performed By: #### H EPATIC, LIPASE, BMP, DIFF CBC #### [address] Serum globulin measurement b y calculation (mass/volume)Ordered By: Rita Corado on 11-07-2023 Globulin (S) [Mass/Vol] 3.4 g/dL [facility] Comment on above: Performed By: #### H EPATIC, LIPASE, BMP, DIFF CBC #### [address] Serum or plasma albumin/glob ulin mass ratioOrdered By: Rita Corado on 11-07-2023 Albumin/Globulin [Mass ratio] 1.0 {ratio} Normal [facility] Comment on above: Performed By: #### H EPATIC, LIPASE, BMP, DIFF CBC #### [address] Serum or plasma anion gap de terminationOrdered By: Rita Corado on 11-07-2023 Anion gap [Moles/Vol] 10.1 mmol/L Normal 6.0-15.0 [facility] Comment on above: Performed By: #### H EPATIC, LIPASE, BMP, DIFF CBC #### [address] Serum or plasma non-glucuron idated bilirubin measurement (mass/volume)Ordered By: Rita Corado on 11-07-2023 Bilirubin.indirect [Mass/Vol] 0.4 mg/dL [facility] Sodium [Moles/volume] in Ser um or PlasmaOrdered By: Rita Corado on 11-07-2023 Sodium [Moles/Vol] 137 mmol/L Normal 136-145 [facility] Comment on above: Performed By: #### H EPATIC, LIPASE, BMP, DIFF CBC #### [address] Specific gravity Test strip (U) [Rel density]Ordered By: Rita Corado on 11-07-2023 Specific gravity (U) [Rel density] 1.023 1.001-1.03 0 [facility] Urea nitrogen [Mass/volume] in Serum or PlasmaOrdered By: Rita Corado on 11-07-2023 Urea nitrogen [Mass/Vol] 18 mg/dL Normal 7-25 [facility] Comment on above: Performed By: #### H EPATIC, LIPASE, BMP, DIFF CBC #### [address] Urinalysison 11-07-2023 Bilirubin,Urine Negative Normal Negative [facility] Comment on above: Order Comment: Name Collection Type:: Clean-Voided Midstream Performed By: #### U A #### [address] Glucose Ql (U) Normal Normal Normal [facility] Comment on above: Order Comment: Name Collection Type:: Clean-Voided Midstream Performed By: #### U A #### [place] [address] [place] Nitrite,Urine Negative Normal Negative [facility] Comment on above: Order Comment: Name Collection Type:: Clean-Voided Midstream Performed By: #### U A #### [place] [address] [place] Occult Blood,Urine Negative Normal Negative [facility] Comment on above: Order Comment: Name Collection Type:: Clean-Voided Midstream Result Comment: PERF ORMED BY: [place] [address] PATHOLOGIST [employer]ADER JORGE LUIS RUELAS M.D. Performed By: #### U A #### [place] [address] [place] Protein,Urine Negative Normal Negative [facility] Comment on above: Order Comment: Name Collection Type:: Clean-Voided Midstream Performed By: #### U A #### [address] Specificy Luana,Urine 1.023 Normal 1.001-1.03 0 [facility] Comment on above: Order Comment: Name Collection Type:: Clean-Voided Midstream Performed By: #### U A #### [place] [address] [place] Urobilinogen,Urine Normal Normal Normal [facility] Comment on above: Order Comment: Name Collection Type:: Clean-Voided Midstream Performed By: #### U A #### [address] Urine appearanceOrdered By: Rita Corado on 11-07-2023 Appearance (U) Clear Normal Clear [facility] Comment on above: Order Comment: Name Collection Type:: Clean-Voided Midstream Performed By: #### U A #### [address] Urobilinogen Test strip (U) [Mass/Vol]Ordered By: Rita Corado on 11-07-2023 Urobilinogen (U) [Mass/Vol] Normal mg/dL Normal [facility] pH of Urine by Test stripOrd ered By: Rita Corado on 11-07-2023 pH (U) 6.0 [pH] Normal 5.0-9.0 [facility] Comment on above: Order Comment: Name Collection Type:: Clean-Voided Midstream Performed By: #### U A #### [address] ECG 12 lead ECGon 11-06-2023 ECG 12 lead ECG [facility] [place] [address] [place] [address] Electrocardiograph Report Signed Patient: Angelika Muir MR#: [id number] : 1940 Acct:[id number] Age/Sex: 83 / F ADM Date: 11/06/23 Loc: ER Room: Type: [facility] ER Attending Dr: Ordering Provider: Rita Corado DO Date of Service: 11/06/23 ECG/ECG 12 lead ECG: Abdominal Pain Copies to: Test Reason : Blood Pressure : 161/109 mmHG Vent. Rate : 105 BPM Atrial Rate : 105 BPM P-R Int : 134 ms QRS Dur : 78 ms QT Int : 336 ms P-R-T Axes : 63 24 57 degrees QTcB Int : 444 ms Sinus tachycardia Otherwise normal ECG No previous ECGs available Confirmed by RITA CORADO DO ([id number]) on 11/07/2023 3:54:30 AM Referred By: Electronically Signed By: RITA CORADO DO Transcribed By: MUS Signed By Rita Corado DO 0354 Normal [facility] POCT urinalysis dipstick onl yOrdered By: Demetrio Huitron on 05-25-2023 Appearance (U) cloudy [facility] Urine Bilirubin Moderate [facility] Urine Blood Negative [facility] Urine Color orange [facility] Urine Glucose Negative [facility] Urine Ketones Trace [facility] Urine Leukocyte Esterase Negative [facility] Urine Nitrite Negative [facility] Urine Ph 5.5 [facility] Urine Protein Trace [facility] Urine Specific Luana 1.030 [facility] Urine Urobilinogen 0.2 [facility] COMPREHENSIVE METABOLIC PANE Iam 05-24-2023 Albumin [Mass/Vol] 3.6 g/dL Normal 3.2-5.3 [facility] Comment on above: Performed By: #### Estefani ALEJO, 6-3 #### [facility] ([id number]) [address], [address] [place] [address] ALP [Catalytic activity/Vol] 103 U/L Normal 39-130 [facility] Comment on above: Performed By: #### Estefani ALEJO, 3015-3 #### [facility] ([id number]) [address], [address] [place] [address] ALT [Catalytic activity/Vol] 10 U/L Normal 0-31 [facility] Comment on above: Performed By: #### Estefani ALEJO, 6-3 #### [facility] ([id number]) [address], [address] [place] [address] Anion gap [Moles/Vol] 9 mmol/L Normal 5-15 [facility] Comment on above: Performed By: #### Estefani ALEJO, 3015-3 #### [facility] ([id number]) [address], [address] [place] [address] AST [Catalytic activity/Vol] 16 U/L Normal 0-41 [facility] Comment on above: Performed By: #### Estefani ALEJO, 6-3 #### [facility] ([id number]) [address], [address] [place] [address] Bilirubin [Mass/Vol] 0.4 mg/dL Normal 0.3-1.2 [facility] Comment on above: Performed By: #### Estefani ALEJO, 6-3 #### [facility] ([id number]) [address], [address] [place] [address] Calcium [Mass/Vol] 9.5 mg/dL Normal 8.5-10.5 [facility] Comment on above: Performed By: #### Estefani ALEJO, 3015-3 #### [facility] ([id number]) [address], [address] [place] [address] Chloride [Moles/Vol] 105 mmol/L Normal 98-109 [facility] Comment on above: Performed By: #### Estefani ALEJO, 3015-3 #### [facility] ([id number]) [address], [address] [place] [address] CO2 [Moles/Vol] 31 mmol/L Normal 22-32 [facility] Comment on above: Performed By: #### Estefani ALEJO, 3015-3 #### [facility] ([id number]) [address], [address] [place] [address] Creatinine [Mass/Vol] 0.99 mg/dL Normal 0.40-1.00 [facility] Comment on above: Result Comment: METH OD TRACEABLE TO IDMS STANDARD Performed By: #### Estefani ALEJO, 3015-3 #### [facility] ([id number]) [address], [address] [place] [address] GFR/1.73 sq M.predicted among non-blacks MDRD (S/P/Bld) [Vol rate/Area] 56 mL/min/{1.73_m2} Low >59 [facility] Comment on above: Result Comment: Reported eGFR is based on the CKD-EPI 2020 equation that does not use a race coefficient. Performed By: #### Estefani ALEJO, 3015-3 #### [facility] ([id number]) [address], [address] [place] [address] Glucose [Mass/Vol] 103 mg/dL High 65-99 [facility] Comment on above: Performed By: #### Estefani ALEJO, 3015-3 #### [facility] ([id number]) [address], [address] [place] [address] Potassium [Moles/Vol] 3.9 mmol/L Normal 3.5-5.0 [facility] Comment on above: Performed By: #### Estefani ALEJO, 3016-3 #### [facility] ([id number]) [address], [address] [place] [address] Protein [Mass/Vol] 7.1 g/dL Normal 6.0-8.0 [facility] Comment on above: Performed By: #### Estefani ALEJO, 3016-3 #### [facility] ([id number]) [address], [address] [place] [address] Sodium [Moles/Vol] 145 mmol/L Normal 134-146 [facility] Comment on above: Performed By: #### Estefani ALEJO, 3016-3 #### [facility] ([id number]) [address], [address] [place] [address] Urea nitrogen [Mass/Vol] 18 mg/dL Normal 5-27 [facility] Comment on above: Performed By: #### Estefani ALEJO, 3016-3 #### [facility] ([id number]) [address], [address] [place] [address] Comprehensive metabolic pane iam 05-24-2023 Albumin [Mass/Vol] 3.6 g/dL 3.2 - 5.3 g/dL [facility] ALP [Catalytic activity/Vol] 103 U/L 39 - 130 U/L [facility] ALT No additional P-5'-P [Catalytic activity/Vol] 10 U/L 0 - 31 U/L [facility] Anion gap [Moles/Vol] 9 mmol/L 5 - 15 mmol/L [facility] AST [Catalytic activity/Vol] 16 U/L 0 - 41 U/L [facility] Bilirubin [Mass/Vol] 0.4 mg/dL 0.3 - 1 .2 mg/dL [facility] Calcium [Mass/Vol] 9.5 mg/dL 8.5 - 10. 5 mg/dL [facility] Chloride [Moles/Vol] 105 mmol/L 98 - 10 9 mmol/L [facility] CO2 [Moles/Vol] 31 mmol/L 22 - 32 mmol/L [facility] Creatinine [Mass/Vol] 0.99 mg/dL 0.40 - 1.00 mg/dL [facility] Comment on above: METHOD TRACEABLE TO [facility] STANDARD eGFR (CKD-EPI)non-race dependent 56 Low - PINF [facility] Comment on above: Reported eGFR is based on the CKD-EPI 2020 equation that does not use a race coefficient. Glucose [Mass/Vol] 103 mg/dL High 65 - 99 mg/dL [facility] Interpretation and review of laboratory results Abnormal [facility] Potassium [Moles/Vol] 3.9 mmol/L 3.5 - 5.0 mmol/L [facility] Protein [Mass/Vol] 7.1 g/dL 6.0 - 8.0 g/dL [facility] Sodium [Moles/Vol] 145 mmol/L 134 - 146 mmol/L [facility] Urea nitrogen [Mass/Vol] 18 mg/dL 5 - 27 mg/dL [facility] HGB A1C (GLYCO-HGB)on 2023 Glucose [Mass/Vol] 126 mg/dL Normal [facility] Comment on above: Performed By: #### C , 3016-3 #### [facility] ([id number]) [address] [facility], [address] [place] [address] HbA1c (Bld) [Mass fraction] 6.0 % High 4.4-5.6 [facility] Comment on above: Result Comment: NOTE ADA Guidelines Result HgbA1c Normal : less than 5.7 % Prediabetes : 5.7 % to 6.4 % Diabetes : > 6.4 % Use with caution in patients with abnormal hemoglobin variants as the half-life of red blood cells and in vivo glycation rates are affected. Performed By: #### C MELO, 3016-3 #### [facility] ([id number]) [address] [facility], [address] [place] [address] TSHon 05-24-2023 TSH Qn 2.13 m[IU]/L [facility] TSH Qnon 05-24-2023 [facility] TSH 2.13 uIU/mL Normal 0.49-4.67 [facility] Comment on above: Performed By: #### C , 3016-3 #### [facility] ([id number]) [address] [facility], [address] [place] [address] CULTURE URINEon 05-28-2022 CULTURE URINE Isolate 1 [...] <=0.12 S F Nitrofurantoin <=16 S F Trimethoprim/Sulfamethoxazol e <=20 S F Normal [facility] Comment on above: Performed By: #### U ACSIND #### [facility] [address] [place] [address] Dr. Megan Caballero ALDOLASEon 05-27-2022 Aldolase 5.8 U/L Normal 3.3-10.3 [facility] Comment on above: Performed By: #### L ACT #### [facility] [address] [place] [address] Dr. Megan Caballero TAO DIRECTon 05-27-2022 TAO Direct Negative Normal Negative [facility] Comment on above: Performed By: #### L ACT #### [facility] [address] [place] [address] Dr. Megan Caballero RHEUMATOID FACTORon 05-28-19 RA Latex Turbid. 28.2 IU/mL Critically high <14.0 [facility] Comment on above: Performed By: #### L ACT #### [facility] [address] [place] [address] Dr. Megan Caballero CBC AUTO DIFFon 05-26-2022 BASO # 0.0 103/ul Normal 0.0-0.1 [facility] Comment on above: Performed By: #### L ACT #### [facility] [address] [place] [address] Dr. Megan Caballero Basophils/100 WBC (Bld) 0.1 % Critically low 0.2-2.0 [facility] Comment on above: Performed By: #### L ACT #### [facility] [address] [place] [address] Dr. Megan Caballero EO # 0.0 103/ul Normal 0.0-0.7 [facility] Comment on above: Performed By: #### L ACT #### [facility] [address] [place] [address] Dr. Megan Caballero Eosinophils/100 WBC (Bld) 0.0 % Critically low 0.9-7.0 [facility] Comment on above: Performed By: #### L ACT #### [facility] [address] [place] [address] Dr. Megan Caballero Erythrocyte distribution width (RBC) [Ratio] 13.4 % Normal 11.0-15.0 [facility] Comment on above: Performed By: #### L ACT #### [facility] [address] [place] [address] Dr. Megan Caballero Hematocrit (Bld) [Volume fraction] 33.4 % Critically low 36.0-48.0 [facility] Comment on above: Performed By: #### L ACT #### [facility] [address] [place] [address] Dr. Megan Caballero Hemoglobin (Bld) [Mass/Vol] 11.0 g/dL Critically low 12.0-16.0 [facility] Comment on above: Performed By: #### L ACT #### [facility] [address] [address] [address] Megan Caballero IG # 0.12 10e3/ul Critically high 0.00-0.03 [facility] Comment on above: Performed By: #### L ACT #### [facility] [address] [address] [address] Megan Caballero IG % 0.9 % Critically high 0.0-0.5 [facility] Comment on above: Performed By: #### L ACT #### [facility] [address] [place] [address] Dr. Megan Caballero LYMPH # 0.8 103/ul Critically low 1.2-3.8 [facility] Comment on above: Performed By: #### L ACT #### [facility] [address] [place] [address] Dr. Megan Caballero Lymphocytes/100 WBC (Bld) 5.7 % Critically low 20.5-60.0 [facility] Comment on above: Performed By: #### L ACT #### [facility] [address] [place] [address] Dr. Megan Caballero MANUAL DIFF REQ NO Normal [facility] Comment on above: Performed By: #### L ACT #### [facility] [address] [place] [address] Dr. Megan Caballero MCH (RBC) [Entitic mass] 29.2 pg Normal 26.7-34.0 [facility] Comment on above: Performed By: #### L ACT #### [facility] [address] [place] [address] Dr. Megan Caballero MCHC (RBC) [Mass/Vol] 32.9 g/dL Normal 29.9-35.2 [facility] Comment on above: Performed By: #### L ACT #### [facility] [address] [place] [address] Dr. Megan Caballero MCV (RBC) [Entitic vol] 88.6 fL Normal 81.0-99.0 [facility] Comment on above: Performed By: #### L ACT #### [facility] [address] [address] [address] Megan Caballero MONO # 1.1 103/ul Critically high 0.3-0.8 [facility] Comment on above: Performed By: #### L ACT #### [facility] [address] [place] [address] Dr. Megan Caballero Monocytes/100 WBC (Bld) 7.9 % Normal 1.7-12.0 [facility] Comment on above: Performed By: #### L ACT #### [facility] [address] [place] [address] Dr. Megan Caballero NEUT # 11.9 103/ul Critically high 1.4-6.5 [facility] Comment on above: Performed By: #### L ACT #### [facility] [address] [place] [address] Dr. Megan Caballero Neutrophils/100 WBC (Bld) 85.4 % Critically high 43.0-75.0 [facility] Comment on above: Performed By: #### L ACT #### [facility] [address] [place] [address] Dr. Megan Caballero Platelet mean volume (Bld) [Entitic vol] 10.2 fL Normal 9.5-13.5 [facility] Comment on above: Performed By: #### L ACT #### [facility] [address] [place] [address] Dr. Megan Caballero PLT 176 103/ul Normal 150-450 [facility] Comment on above: Performed By: #### L ACT #### [facility] [address] [place] [address] Dr. Megan Caballero RBC 3.77 106/ul Critically low 4.20-5.40 [facility] Comment on above: Performed By: #### L ACT #### [facility] [address] [place] [address] Dr. Megan Caballero WBC 13.9 103/ul Critically high 4.0-11.0 [facility] Comment on above: Performed By: #### L ACT #### [facility] [address] [place] [address] Dr. Megan Caballero CULTURE BLOODon 03-07-2023 Microscopic examination of blood, culture Culture Observations: NO GROWTH AT 5 DAYS. Normal [facility] Comment on above: Performed By: #### U ACSIND #### [facility] [address] [place] [address] Dr. Megan Caballero Microscopic examination of blood, culture Culture Observations: NO GROWTH AT 5 DAYS. Normal [facility] Comment on above: Performed By: #### U ACSIND #### [facility] [address] [place] [address] Dr. Megan Caballero LACTATE/LACTIC ACIDon 2022 Lactate [Moles/Vol] 1.1 mmol/L Normal 0.4-1.9 [facility] Comment on above: Performed By: #### L ACT #### [facility] [address] [place] [address] Dr. Megan Caballero LIVER PROFILEon 05-26-2022 Albumin [Mass/Vol] 2.7 g/dL Critically low 3.4-5.0 [facility] Comment on above: Performed By: #### L ACT #### [facility] [address] [place] [address] Dr. Megan Caballero Albumin/Globulin [Mass ratio] 0.6 {ratio} Normal [facility] Comment on above: Performed By: #### L ACT #### [facility] [address] [place] [address] Dr. Megan Caballero ALP [Catalytic activity/Vol] 107 U/L Normal 46-116 [facility] Comment on above: Performed By: #### L ACT #### [facility] [address] [place] [address] Dr. Megan Caballero ALT [Catalytic activity/Vol] 12 U/L Critically low 14-59 [facility] Comment on above: Performed By: #### L ACT #### [facility] [address] [place] [address] Dr. Megan Caballero AST [Catalytic activity/Vol] 16 U/L Normal 15-37 [facility] Comment on above: Performed By: #### L ACT #### [facility] [address] [place], [place] [address] Dr. Megan Caballero BILI, CONJUGATED 0.1 mg/dL Normal 0.0-0.2 [facility] Comment on above: Performed By: #### L ACT #### [facility] [address] [place] [address] Dr. Megan Caballero Bilirubin [Mass/Vol] 0.6 mg/dL Normal 0.2-1.0 [facility] Comment on above: Performed By: #### L ACT #### [facility] [address] [place] [address] Dr. Megan Caballero Globulin (S) [Mass/Vol] 4.2 g/dL Normal [facility] Comment on above: Performed By: #### L ACT #### [facility] [address] [place] [address] Dr. Megan Caballero Protein [Mass/Vol] 6.9 g/dL Normal 6.4-8.2 [facility] Comment on above: Performed By: #### L ACT #### [facility] [address] [place] [address] Dr. Megan Caballero MAGNESIUMon 05-26-2022 Magnesium [Mass/Vol] 1.9 mg/dL Normal 1.8-2.4 [facility] Comment on above: Performed By: #### M G #### [facility] [address] [place] [address] Dr. Megan Caballero NM BONE CA WH BODYon 023 NM BONE CA WH BODY EXAMINATION: NM BONE [facility] BODY HISTORY: Pain ; right hip [...] IHSAN PEDROZA Date: 2022-05-26 15:25 Normal [facility] PROF 14(COMP METB)on 023 Albumin [Mass/Vol] 2.4 g/dL Critically low 3.4-5.0 [facility] Comment on above: Performed By: #### L ACT #### [facility] [address] [place] [address] Dr. Megan Caballero Albumin/Globulin [Mass ratio] 0.6 {ratio} Normal [facility] Comment on above: Performed By: #### L ACT #### [facility] [address] [place] [address] Dr. Megan Caballero ALP [Catalytic activity/Vol] 92 U/L Normal 46-116 [facility] Comment on above: Performed By: #### L ACT #### [facility] [address] [place] [address] Dr. Megan Caballero ALT [Catalytic activity/Vol] 10 U/L Critically low 14-59 [facility] Comment on above: Performed By: #### L ACT #### [facility] [address] [place] [address] Dr. Megan Caballero Anion gap [Moles/Vol] 10.3 mmol/L Normal [facility] Comment on above: Performed By: #### L ACT #### [facility] [address] [place] [address] Dr. Megan Caballero AST [Catalytic activity/Vol] 14 U/L Critically low 15-37 [facility] Comment on above: Performed By: #### L ACT #### [facility] [address] [place] [address] Dr. Megan Caballero Bilirubin [Mass/Vol] 0.5 mg/dL Normal 0.2-1.0 [facility] Comment on above: Performed By: #### L ACT #### [facility] [address] [place] [address] Dr. Megan Caballero Calcium [Mass/Vol] 8.2 mg/dL Critically low 8.5-10.1 Th [facility] Comment on above: Performed By: #### L ACT #### [facility] [address] [place] [address] Dr. Megan Caballero Chloride [Moles/Vol] 104 mmol/L Normal 98-107 [facility] Comment on above: Performed By: #### L ACT #### [facility] [address] [place] [address] Dr. Megan Caballero CO2 [Moles/Vol] 28.2 mmol/L Normal 21.0-32.0 [facility] Comment on above: Performed By: #### L ACT #### [facility] [address] [place] [address] [address] Megan Caballero Creatinine [Mass/Vol] 1.05 mg/dL Critically high 0.55-1.02 [facility] Comment on above: Performed By: #### L ACT #### [facility] [address] [place] [address] Dr. Megan Caballero EGFR-AF BURKINAN >60 Normal >=60 [facility] Comment on above: Performed By: #### L ACT #### [facility] [address] [place] [address] Dr. Megan Caballero EGFR-NON AF BURKINAN 50 mL/min/1.73m2 Critically low >=60 [facility] Comment on above: Performed By: #### L ACT #### [facility] [address] [place] [address] Dr. Megan Caballero Globulin (S) [Mass/Vol] 3.7 g/dL Normal [facility] Comment on above: Performed By: #### L ACT #### [facility] [address] [place] [address] Dr. eMgan Caballero Glucose [Mass/Vol] 116 mg/dL Critically high 74-106 [facility] Comment on above: Performed By: #### L ACT #### [facility] [address] [address] [address] Megan Caballero Potassium [Moles/Vol] 3.5 mmol/L Normal 3.5-5.1 [facility] Comment on above: Performed By: #### L ACT #### [facility] [address] [place] [address] Dr. Megan Caballero Protein [Mass/Vol] 6.1 g/dL Critically low 6.4-8.2 Th e [facility] Comment on above: Performed By: #### L ACT #### [facility] [address] [place] [address] Dr. Megan Caballero Sodium [Moles/Vol] 139 mmol/L Normal 136-145 [facility] Comment on above: Performed By: #### L ACT #### [facility] [address] [place] [address] Dr. Megan Caballero Urea nitrogen [Mass/Vol] 25.0 mg/dL Critically high 7.0-18.0 [facility] Comment on above: Performed By: #### L ACT #### [facility] [address] [place] [address] Dr. Megan Caballero Urea nitrogen/Creatinine [Mass ratio] 23.8 mg/mg Normal [facility] Comment on above: Performed By: #### L ACT #### [facility] [address] [place] [address] Dr. Megan Caballero PTTon 05-26-2022 aPTT Coag (Bld) [Time] 31.1 s Normal 22.3-36.2 [facility] Comment on above: Performed By: #### P TT #### [facility] [address] [place] [address] Dr. Megan Caballero UA RANDOMon 05-26-2022 Bilirubin Ql (U) Negative Normal NEGATIVE [facility] Comment on above: Performed By: #### U A #### [facility] [address] [place] [address] Dr. Megan Caballero Clarity (U) CLEAR Normal CLEAR [facility] Comment on above: Performed By: #### U A #### [facility] [address] [place] [address] Dr. Megan Caballero Color (U) LT. YELLOW Normal YELLOW [facility] Comment on above: Performed By: #### U A #### [facility] [address] [place] [address] Dr. Megan Caballero Glucose Ql (U) Negative Normal NEGATIVE [facility] Comment on above: Performed By: #### U A #### [facility] [address] [place] [address] Dr. Megan Caballero Hemoglobin Ql (U) MODERATE Abnormal NEGATIVE The [facility] Comment on above: Performed By: #### U A #### [facility] [address] [place] [address] Dr. Megan Caballero Ketones Ql (U) Negative Normal NEGATIVE The [facility] Comment on above: Performed By: #### U A #### [facility] [address] [place] [address] Dr. Megan Caballero LEUKOCYTES TRACE Abnormal NEGATIVE The [facility] Comment on above: Performed By: #### U A #### [facility] [address] [place] [address] Dr. Megan Caballero Nitrite Ql (U) Negative Normal NEGATIVE The [facility] Comment on above: Performed By: #### U A #### [facility] [address] [place] [address] Dr. Megan Caballero pH (U) 6.0 [pH] Normal 5-9 [facility] Comment on above: Performed By: #### U A #### [facility] [address] [place] [address] Dr. Megan Caballero SPEC GRAVITY 1.015 Normal 1.005-<=1. 025 The [facility] Comment on above: Performed By: #### U A #### [facility] [address] [place] [address] Dr. Megan Caballero UA PROTEIN 30 mg/dl Abnormal NEGATIVE/ TRACE The [facility] Comment on above: Performed By: #### U A #### [facility] [address] [place] [address] Dr. Megan Caballero Urobilinogen Qn (U) 0.2 {Renu'U}/dL Normal 0.2 - 1. 0 The [facility] Comment on above: Performed By: #### U A #### [facility] [address] [place] [address] Dr. Megan Caballero XR CHEST 1 Von [...] by: ALVINO BENITEZ Date: 2022-05-26 04:41 Normal [facility] CPKon 05-25-2022 CK [Catalytic activity/Vol] 73 U/L Normal 26-192 [facility] Comment on above: Performed By: #### U ACSIND #### [facility] [address] [place] [address] Dr. Megan Caballero CRPon 05-25-2022 CRP 11.9 mg/dL Critically high <=1.0 [facility] Comment on above: Performed By: #### C RP, URIC #### [facility] [address] [place] [address] Dr. Megan Caballero [facility]on SARS-CoV-2 (COVID-19) RNA YU+probe Ql (Unsp spec) Not detected Normal NOT DETECTED The [facility] Comment on above: Result Comment: When diagnostic [...] for this test is supported by the [employer] of Health and Human Service's declaration that [...] used). Performed By: #### U ACSIND #### [facility] [address] [place] [address] Dr. Megan Caballero SED RATE WESTERGRENon 2022 SED RATE 55 mm/hr Critically high <=30 [facility] Comment on above: Performed By: #### S EDR #### [facility] [address] [place] [address] Dr. Megan Caballero TSHon 05-25-2022 TSH 0.533 uIU/mL Normal 0.358-3.74 0 [facility] Comment on above: Performed By: #### T SH #### [facility] [address] [place] [address] Dr. Megan Caballero UA (CLEAN/CATCH) TILE MACHINE OPERATOR/MICRO I F IND.on 05-25-2022 Bilirubin Ql (U) Negative Normal NEGATIVE [facility] Comment on above: Performed By: #### U ACSIND #### [facility] [address] [place] [address] Dr. Megan Caballero Clarity (U) CLEAR Normal CLEAR [facility] Comment on above: Performed By: #### U ACSIND #### [facility] [address] [place] [address] Dr. Megan Caballero Color (U) LT. YELLOW Normal YELLOW [facility] Comment on above: Performed By: #### U ACSIND #### [facility] [address] [place] [address] Dr. Megan Caballero Glucose Ql (U) Negative Normal NEGATIVE [facility] Comment on above: Performed By: #### U ACSIND #### [facility] [address] [place] [address] Dr. Megan Caballero Hemoglobin Ql (U) TRACE-LYSED Abnormal NEGATIVE [facility] Comment on above: Performed By: #### U ACSIND #### [facility] [address] [place] [address] Dr. Megan Caballero Ketones Ql (U) Negative Normal NEGATIVE [facility] Comment on above: Performed By: #### U ACSIND #### [facility] [address] [place] [address] Dr. Megan Caballero LEUKOCYTES Negative Normal NEGATIVE The [facility] Comment on above: Performed By: #### U ACSIND #### [facility] [address] [place] [address] Dr. Megan Caballero Nitrite Ql (U) Negative Normal NEGATIVE [facility] Comment on above: Performed By: #### U ACSIND #### [facility] [address] [place] [address] Dr. Megan Caballero pH (U) 6.5 [pH] Normal 5-9 [facility] Comment on above: Performed By: #### U ACSIND #### [facility] [address] [place] [address] Dr. Megan Caballero SPEC GRAVITY 1.020 Normal 1.005-<=1. 025 [facility] Comment on above: Performed By: #### U ACSIND #### [facility] [address] [place] [address] Dr. Megan Caballero UA PROTEIN Negative Normal NEGATIVE/ TRACE The [facility] Comment on above: Performed By: #### U ACSIND #### [facility] [address] [place] [address] Dr. Megan Caballero UR MICRO IND NOT INDICATED Normal [facility] Comment on above: Performed By: #### U ACSIND #### [facility] [address] [place] [address] Dr. Megan Caballero Urobilinogen Qn (U) 0.2 {Renu'U}/dL Normal 0.2 - 1. 0 [facility] Comment on above: Performed By: #### U ACSIND #### [facility] [address] [place] [address] Dr. Megan Caballero URIC ACID SERUMon 05-25-2022 Urate [Mass/Vol] 4.3 mg/dL Normal 2.6-6.0 [facility] Comment on above: Performed By: #### C RP, URIC #### [facility] [address] [place] [address] Dr. Megan Caballero XR FEMUR RTon 05-25-2022 [...] JELANI MAR Date: 2022-05-24 23:28 Normal [facility] CBC W MANUAL DIFFon 05-25-19 23 ATYPICAL LYMPH # Normal [facility] Comment on above: Performed By: #### L ACT #### [facility] [address] [place] [address] Dr. Megan Caballero ATYPICAL LYMPH % Normal [facility] Comment on above: Performed By: #### L ACT #### [facility] [address] [place] [address] Dr. Megan Caballero BAND # 0.0 103/ul Normal 0.0-0.3 [facility] Comment on above: Performed By: #### L ACT #### [facility] [address] [place] [address] Dr. Megan Caballero BAND % 0 % Normal 0-5 [facility] Comment on above: Performed By: #### L ACT #### [facility] [address] [place] [address] Dr. Megan Caballero BASOM # 0.00 103/ul Normal 0.00-0.10 [facility] Comment on above: Performed By: #### L ACT #### [facility] [address] [place] [address] Dr. Megan Caballero BASOM % 0.0 % Critically low 0.2-2.0 [facility] Comment on above: Performed By: #### L ACT #### [facility] [address] [place] [address] Dr. Megan Caballero BLAST # Normal [facility] Comment on above: Performed By: #### L ACT #### [facility] [address] [place] [address] Dr. Megan Caballero BLAST % Normal [facility] Comment on above: Performed By: #### L ACT #### [facility] [address] [place] [address] Dr. Megan Caballero CORRECTED WBC Normal 4.0-11.0 [facility] Comment on above: Performed By: #### L ACT #### [facility] [address] [place] [address] Dr. Megan Caballero EOS # 0.00 103/ul Normal 0.00-0.70 [facility] Comment on above: Performed By: #### L ACT #### [facility] [address] [place] [address] Dr. Megan Caballero EOS% 0.0 % Critically low 0.9-7.0 [facility] Comment on above: Performed By: #### L ACT #### [facility] [address] [place] [address] Dr. Megan Caballero HCT 37.2 % Normal 36.0-48.0 [facility] Comment on above: Performed By: #### L ACT #### [facility] [address] [place] [address] Dr. Megan Caballero HGB 12.2 g/dl Normal 12.0-16.0 [facility] Comment on above: Performed By: #### L ACT #### [facility] [address] [place] [address] Dr. Megan Caballero LYMPHM # 0.23 103/ul Critically low 1.20-3.80 [facility] Comment on above: Performed By: #### L ACT #### [facility] [address] [place] [address] Dr. Megan Caballero LYMPHM% 2.0 % Critically low 20.5-60.0 [facility] Comment on above: Performed By: #### L ACT #### [facility] [address] [place] [address] Dr. Megan Caballero MCH 28.6 pg Normal 26.7-34.0 [facility] Comment on above: Performed By: #### L ACT #### [facility] [address] [place] [address] Dr. Megan Caballero MCHC 32.8 g/dl Normal 29.9-35.2 [facility] Comment on above: Performed By: #### L ACT #### [facility] [address] [place] [address] Dr. Megan Caballero MCV 87.1 fL Normal 81.0-99.0 [facility] Comment on above: Performed By: #### L ACT #### [facility] [address] [place] [address] Dr. Megan Caballero METAMYELOCYTE # Normal [facility] Comment on above: Performed By: #### L ACT #### [facility] [address] [place] [address] Dr. Megan Caballero METAMYELOCYTE % Normal [facility] Comment on above: Performed By: #### L ACT #### [facility] [address] [place] [address] Dr. Megan Caballero MONOM# 0.23 103/ul Critically low 0.30-0.80 [facility] Comment on above: Performed By: #### L ACT #### [facility] [address] [place] [address] Dr. Megan Caballero MONOM% 2.0 % Normal 1.7-12.0 [facility] Comment on above: Performed By: #### L ACT #### [facility] [address] [place] [address] Dr. Megan Caballero MPV 9.5 fL Normal 9.5-13.5 [facility] Comment on above: Performed By: #### L ACT #### [facility] [address] [place] [address] Dr. Megan Caballero MYELOCYTE # Normal [facility] Comment on above: Performed By: #### L ACT #### [facility] [address] [place] [address] Dr. Megan Caballero MYELOCYTE % Normal [facility] Comment on above: Performed By: #### L ACT #### [facility] [address] [place] [address] Dr. Megan Caballero NRBC Normal [facility] Comment on above: Performed By: #### L ACT #### [facility] [address] [address] [address] Megan Caballero PLT 197 103/ul Normal 150-450 [facility] Comment on above: Performed By: #### L ACT #### [facility] [address] [place] [address] Dr. Megan Caballero RBC 4.27 106/ul Normal 4.20-5.40 [facility] Comment on above: Performed By: #### L ACT #### [facility] [address] [place] [address] Dr. Megan Caballero RDW 13.1 % Normal 11.0-15.0 [facility] Comment on above: Performed By: #### L ACT #### [facility] [address] [place] [address] Dr. Megan Caballero SEG # 10.85 103/ul Critically high 1.40-6.50 [facility] Comment on above: Performed By: #### L ACT #### [facility] [address] [place] [address] Dr. Megan Caballero SEG % 96.0 % Critically high 43.0-75.0 [facility] Comment on above: Performed By: #### L ACT #### [facility] [address] [place] [address] Dr. Megan Caballero WBC 11.3 103/ul Critically high 4.0-11.0 [facility] Comment on above: Performed By: #### L ACT #### [facility] [address] [place] [address] Dr. Megan Caballero CRPon 05-24-2022 CRP 1.7 mg/dL Critically high <=1.0 [facility] Comment on above: Performed By: #### L ACT #### [facility] [address] [place] [address] PELVIS WO CONon [...] of iterative reconstruction technique. FINDINGS: The initial back hoe machine operator views demonstrate bilateral total hip [...] JELANI MAR Date: 2022-05-24 21:51 Normal [facility] PROF CHEM 8 (BAS METB)on Anion gap [Moles/Vol] 12.6 mmol/L Normal [facility] Comment on above: Performed By: #### L ACT #### [facility] [address] [place] [address] Dr. Megan Caballero Calcium [Mass/Vol] 8.6 mg/dL Normal 8.5-10.1 [facility] Comment on above: Performed By: #### L ACT #### [facility] [address] [place] [address] Dr. Megan Caballero Chloride [Moles/Vol] 102 mmol/L Normal 98-107 [facility] Comment on above: Performed By: #### L ACT #### [facility] [address] [address] [address] Megan Caballero CO2 [Moles/Vol] 28.6 mmol/L Normal 21.0-32.0 [facility] Comment on above: Performed By: #### L ACT #### [facility] [address] [address] [address] Megan Caballero Creatinine [Mass/Vol] 0.73 mg/dL Normal 0.55-1.02 [facility] Comment on above: Performed By: #### L ACT #### [facility] [address] [address] [address] Megan Caballero EGFR-AF BURKINAN >60 Normal >=60 [facility] Comment on above: Performed By: #### L ACT #### [facility] [address] [address] [address] Megan Caballero EGFR-NON AF BURKINAN >60 Normal >=60 [facility] Comment on above: Performed By: #### L ACT #### [facility] [address] [address] [address] Megan Caballero Glucose [Mass/Vol] 121 mg/dL Critically high 74-106 [facility] Comment on above: Performed By: #### L ACT #### [facility] [address] [place] [address] Dr. Megan Caballero Potassium [Moles/Vol] 3.2 mmol/L Critically low 3.5-5.1 [facility] Comment on above: Performed By: #### L ACT #### [facility] [address] [address] [address] Megan Caballero Sodium [Moles/Vol] 140 mmol/L Normal 136-145 [facility] Comment on above: Performed By: #### L ACT #### [facility] [address] [place] [address] Dr. Megan Caballero Urea nitrogen [Mass/Vol] 15.0 mg/dL Normal 7.0-18.0 [facility] Comment on above: Performed By: #### L ACT #### [facility] [address] [place] [address] Dr. Megan Caballero Urea nitrogen/Creatinine [Mass ratio] 20.5 mg/mg Normal [facility] Comment on above: Performed By: #### L ACT #### [facility] [address] [address] [address] Megan Caballero SED RATE WESTERGRENon 2022 SED RATE 54 mm/hr Critically high <=30 [facility] Comment on above: Performed By: #### S EDR #### [facility] [address] [address] [address] Megan Jackson 05-30-2020 KAYLIE Office Visit (UROLAV ) ANGELIKA MUIR ([id number]) 1940 [address] [place] Date Time Provider Department 05/30/20 6:00 PM NEGRO POMPA During your visit today, we recorded the following information about you: Pulse Blood pressure Weight 101/minute 141/67 98.4 kg Negro Pompa MD 05/30/2020 6:55 PM Signed [facility] [...] Via bladder scan. Referring Provider: NEGRO POMPA [[id number]] Allergies As of Date: 05/30/2020 Noted Allergy [...] cancer [Z85.3] 01/10/2014 Visit Notes: >> Kell Thompson May 30, 2020 6:31 PM Status: Signed PVR = 71 ml Via bladder scan. Medications Discontinued During This Encounter Prescriptions - solifenacin 10 mg tablet (Discontinued) Take 5 mg by mouth once daily. Encounter Status:Closed by NEGRO POMPA MD on 05/30/20 Normal [facility] CNCOon 05-28-2020 CNCO Letter Text Normal [facility] ANES POSTPROC EVALon 021 ANES POSTPROC EVAL HNO ID: [id number] Author: Ihsan Gamino Service: Anesthesiology Author Type: Anesthesiologist Type: Anesthesia Postprocedure Evaluation Filed: 05/01/2020 4:49 PM Note Text: POST ANESTHESIA EVALUATION NOTE : 1940 Procedure Summary Date: 05/01/20 Room / Location: [address] / [facility] Anesthesia Start: 1504 Anesthesia Stop: 1620 [...] May 01, 2020 TIME: 4:49 PM CSN: [id number] [facility] ANES PRE-OPon 05-01-2020 ANES PRE-OP HNO ID: [id number] Author: Ihsan Gamino Service: Anesthesiology Author Type: [...] May 01, 2020 TIME: 3:53 PM CSN: [id number] [facility] HISTORY PHYSICALon HISTORY PHYSICAL HNO ID: [id number] Author: Negro Pompa Service: Urology Author Type: [...] Pompa MD May 01, 2020 1:22 PM [facility] OPERATIVE NOon 05-01-2020 OPERATIVE NO HNO ID: [id number] Author: Negro Pompa Service: Urology Author Type: Physician Type: Operative Report Filed: 05/01/2020 5:00 PM Note Text: OPERATIVE/PROCEDURE REPORT LOG ID: [id number] SURGERY/PROCEDURE DATE: 05/01/2020 INCISION/PROCEDURE START TIME: 3:28 PM INCISION CLOSE/PROCEDURE END TIME: 4:05 PM SURGEON(S)/PROCEDURALIST(S) AND TRUCK DRIVING(S): Surgeon(s) and Role: * Negro Pompa - [...] 2020 TIME: 4:45 PM PAGER/CONTACT #: Normal [facility] SURGICAL PATHOLOGYon 021 SURGICAL PATHOLOGY Specimen originated from [facility] Specimen #: [id number] Submitting Physician: NEGRO POMPA FINAL DIAGNOSIS Vaginal mesh/sling - Squamous mucosa and fibrotic soft tissue with foreign material consistent with mesh. AES/ka 05/06/2020 Bette Mckeon M.D. (Electronic Signature) SPECIMEN SUBMITTED A: VAGINAL MESH/SLING CLINICAL DATA [...] cassette. DOUG/evens 05/02/2020 Gross examination performed at [facility], [address] [address] Date of Report: 05/06/2020 Date of Procedure: 05/01/2020 Date of Receipt: 05/02/2020 Submitted by: NEGRO POMPA Location: [facility] Diagnostic interpretation performed at [facility], [address] [place] [address]. CLIA Number: [id number] Normal [facility] HOSPon 04-19-2020 HOSP Patient:Nany Muir MRN: Height:5' [...] notes entered within the past 30 days [facility] Provider Letteron 11-21-2019 Provider Letter (Inserted Image. Patricia ble to display) November 21, 2019 ANGELIKA MUIR [address] [place] [id number] ANGELIKA MUIR 1940 Dear Angelika, You missed [...] understanding. Sincerely, [facility]/Dr De La Cruz [facility] Ambulatory Clinical Summaryo n 10-27-2019 Ambulatory Clinical Summary {[id number]}CD:[id number] [facility] Patient Educationon 10-24-19 20 Patient Education Family [...] bladder worse. Your healthcare provider or a substation operator transforming can explain ways to change what you [...] Document Reviewed: 01/02/2010 ExitCare? Patient Information ?2013 [employer]. [facility] Urology Office/Clinic Noteon 10-24-2019 Urology Office/Clinic Note [...] in 1 month. Ordered: PVR urine/bladder capacity/[place] [address] Urnls Dip Stick Auto w/o Microscopy POC 19706 2. Other urethral stricture, female (N35.82: Other [...] Daily, # 30 tab(s), Refills(s) 1, [facility], 170, cm, 10/24/19 14:15:00 EDT, Height/Length Measured, 100, kg, 10/24/19 14:15:00 EDT, Weight Measured I have reviewed the previous health record information and history for this patient from Dr. De La Cruz Follow-up With When Contact Information Jono Faust MD, Bandar Devine In 1 month [facility] [address] [place] [address]- Additional Instructions: w/ PVR Patient Education Overactive [...] Protein Urine Dipstick: Negative (10/24/19 14:03:00) Specific Luana Urine Dipstick: 1.025 (10/24/19 14:03:00) Urine Appearance Urine Dipstick: Clear (10/24/19 14:03:00) Urine Color Urine Dipstick: Yellow (10/24/19 14:03:00) Urobilinogen Urine Dipstick: Normal 0.2-1 EU/dl (10/24/19 14:03:00) pH Urine Dipstick: 5.5 (10/24/19 14:03:00) Diagnostic Results PVR was reviewed at 85 cc. Urinalysis shows no infection. Normal [facility] Comment on above: Result Comment: Elec tronically Signed By: Jono Faust MD, Bandar Devine\.br\Date and Time Signed: 10/24/19 14:59 EDT\.br\Electronically Co-Signed By: Lida Ybarra MA\.br\Date and Time Co-Signed: 10/24/19 14:56 EDT Ambulatory Clinical Summaryo n 08-24-2019 Ambulatory Clinical Summary {[id number]}CD:[id number] Normal [facility] Reminderson 04-24-2019 Reminders - From: Kristen [...] may need scheduled for Cysto/ TVT Normal [facility] Coding Summary.on 04-21-2019 Coding Summary. CODING DATE: 020 FINAL [facility] STATUS: Home (Routine DC) PAYOR: Medicare APC [...] Garces Date Saved: 04/21/2019 01:56 pm Normal [facility] Patient Summaryon 02-02-2019 Patient Summary PATIENT DISCHARGE INSTRUCTIONS If you are having an emergency and are not able to reach your physician, CALL 911 or go to the nearest emergency room and take this document with you. [facility] 02/02/19 09:32 [address] [place]. [address] PATIENT INFORMATION -- Name: ANGELIKA MUIR Address: [address] [place] [id number] Age: 78 Years Phone: [phone] : 1940 12:00 MRN: [facility][id number] Sex: Female Race: White Ethnicity: Not Hispan/Lat Admitted From: Clinic or [facility] Medical Service: Orthopedic Surgery Nurse Unit/Bed: (CO) 2N 0219-01 Admit Date: 01/30/2019 05:59 PCP: Rose SIEGEL , Eduardo Hedrick PHYSICIANS INVOLVED WITH CARE Attending Physicians: Amrik Vickers MD - Orthopaedic Surg Admitting Physician: Amrik Vickers MD - Orthopaedic Surg Primary Care Physician:Rose SIEGEL , Eduardo Hedrick,Internal Medicine, - Consults: Elbert Gleason MD - Internal Medicine RAMÍREZ Rod - Internal Medicine FOLLOW-UP APPOINTMENTS: Provider: Specialty: Address: Date: Amrik Vickers MD Orthopaedic Surg [address] [facility] [address] (1) Six Weeks Comment: Call for an Appointment Provider: Specialty: Address: Date: Eduardo Rose MD Internal Medicine [address] [facility] [address] (1) Follow-up as needed Provider: Specialty: Address: Date: [facility]: [facility] [phone] Follow-up as needed ALLERGIES: No Known Medication [...] doses are changed, or new medications (including drxl-hne-ikkarqj products) are added. Ask your doctor if [...] PRESCRIPTION SCHEDULING PHONE NUMBER: SELECTED LAB RESULTS Lab Result Order Date Sodium Level 141 mMol/L 02/01/2019 Potassium Level 4.1 mMol/L 02/01/2019 Creatinine 0.77 mg/dL 02/01/2019 BUN 20 mg/dL 02/01/2019 Glucose Level 108 mg/dL 02/01/2019 ADVANCE DIRECTIVE/HEALTH CARE DECISIONS: Advance Directive/Health Care Decisions Executed by Patient: Yes Advance Directive/Health Care Decisions Type: Living Will, Medical Power of Soap Tender Copy of Advance Directive/Health Care Decisions on Chart: Patient/Family asked to provide copy SUICIDE HOTLINE: Your mental and emotional well-being are important. If you are in a mental health crisis, or having thoughts of suicide, please call the nationwide suicide hotline, anytime day or night, at 9-542-438-FHFA. Important information about accessing your health information through the [facility] patient portal If you initiated the self-registration process for [employer] during your stay, please check your personal email for an invitation to enroll in [employer] and complete the steps outlined in the email. If you would prefer to enroll while in the hospital, ask a member of your care team. We would be happy to assist you. If you have already enrolled in [facility], go to [email or web address] to login and access your health information. Thank you for choosing [facility]. PATIENT EDUCATION Fall Prevention in the Home [...] wet floors. ???Place frequently used items in moxi-xy-kuraq places. ???If you need to reach for something above you, use a sturdy step stool that has a grab bar. ???Keep electrical cables out of the way. ???Do not use floor trinidadian or wax that makes floors slippery. If [...] include working with a physical therapist or it trainer to improve your strength, balance, and endurance. This information is not intended to replace advice given to you by your health care provider. Make sure you discuss any questions you have with your health care provider. Document Released: 02/26/2003 Document Revised: 07/23/2015 Document Reviewed: 04/12/2015 [employer] Patient Education ?2016 [employer]. Incentive Spirometer An incentive spirometer is a [...] 07/19/2007 Document Revised: 03/29/2015 Document Reviewed: 10/15/2014 [employer] Patient Education ?2016 [employer] Pain Medicine Instructions HOW CAN PAIN [...] liver damage. Acetaminophen is found in many wwol-xrr-gxbxcyc (OTC) and prescription medicines. If you are [...] 06/14/2001 Document Revised: 07/23/2015 Document Reviewed: 01/10/2015 [employer] Patient Education ?2016 [employer] Preventing Constipation After Surgery Constipation is [...] a bowel movement. ???Having hard, dry, or jvwxge-kyjb-cbelkg stools. ???Feeling full or bloated. ???Having pain in the lower abdomen. ???Not feeling relief after having a bowel movement. HOME CARE INSTRUCTIONS Diet ???Eat foods that have a lot of fiber. These include fruits, vegetables, whole grains, and beans. Limit foods high in fat and processed sugars. These include japanese fries, hamburgers, cookies, and candy. ???Take a [...] softener, laxative, or fiber supplement. ???Only take zrjt-mkr-fyvyxqm or prescription medicines as directed by your [...] 07/03/2013 Document Revised: 03/29/2015 Document Reviewed: 07/03/2013 [employer] Patient Education ?2016 [employer]. Venous Thromboembolism, Prevention A venous thromboembolism is [...] you. ???Wear special stockings (compression stockings or ISABELA hose) if your caregiver prescribes them. ???Wearing [...] 02/24/2010 Document Revised: 11/30/2012 Document Reviewed: 07/03/2015 [employer] Patient Education ?2015 [employer] VIRUSES OR BACTERIA: WHAT'S GOT YOU [...] my satisfaction. Patient Signature Date/Time Responsible Party Date/Time Relationship to Patient Clinician Signature __ Date/Time Normal [facility] Basic Metabolic Panelon 01-20 Calcium [Mass/Vol] 8.4 mg/dL Low 8.5-10.6 [facility] Chloride [Moles/Vol] 105 mmol/L Normal 98-107 [facility] CO2 [Moles/Vol] 32 mmol/L Normal 21-32 [facility] Creatinine [Mass/Vol] 0.77 mg/dL Normal 0.55-1.02 [facility] Glucose [Mass/Vol] 108 mg/dL High 70-99 [facility] Potassium [Moles/Vol] 4.1 mmol/L Normal 3.5-5.1 [facility] Sodium [Moles/Vol] 141 mmol/L Normal 136-145 [facility] Urea nitrogen (BldV) [Mass/Vol] 20 mg/dL High 7.0-18.0 [facility] Urea nitrogen/Creatinine [Mass ratio] 26 mg/mg Normal [facility] Basic Metabolic Panelon 01-20 Calcium [Mass/Vol] 8.4 mg/dL Low 8.5-10.6 [facility] Chloride [Moles/Vol] 105 mmol/L Normal 98-107 [facility] CO2 [Moles/Vol] 31 mmol/L Normal 21-32 [facility] Creatinine [Mass/Vol] 0.86 mg/dL Normal 0.55-1.02 [facility] Glucose [Mass/Vol] 101 mg/dL High 70-99 [facility] Potassium [Moles/Vol] 4.1 mmol/L Normal 3.5-5.1 [facility] Sodium [Moles/Vol] 140 mmol/L Normal 136-145 [facility] Urea nitrogen (BldV) [Mass/Vol] 21 mg/dL High 7.0-18.0 [facility] Urea nitrogen/Creatinine [Mass ratio] 24 mg/mg Normal [facility] Anesthesia Recordon 01-31-20 Anesthesia Record Patient: TRAN MUIR MRN: [id number] Age: 78 years Sex: Female : 1940 Associated Diagnoses: None Author: Nadine Barrera MD Procedure Time Out [place] Protocol: patient identity verified, site verified, side verified, procedure to be done verified, patient position verified. REGIONAL ANESTHESIA PROCEDURE Procedure date and begin time: See nurses notes. Procedure date and end time: See nurses notes. Performed by: Nadine Barrera MD. Assisted by: no news assistant. Informed consent: signed by patient. Technique: [...] Diagnosis: M25.561 M17.11 Knee Pain . Normal [facility] Anesthesia Record Patient: TRAN MUIR MRN: [id number] Age: 78 years Sex: Female : 1940 Associated Diagnoses: None Author: Nadine Barrera MD Procedure Time Out [place] Protocol: patient identity verified, site verified, side verified, procedure to be done verified, patient position verified. REGIONAL ANESTHESIA PROCEDURE Procedure date and begin time: See nurses notes. Procedure date and end time: See nurses notes. Performed by: Nadine Barrera MD. Assisted by: no news assistant. Informed consent: signed by patient. Technique: [...] M25.561 M17.11 Knee Pain OA . Normal [facility] Basic Metabolic Panelon 01-20 Calcium [Mass/Vol] 9.0 mg/dL Normal 8.5-10.6 [facility] Chloride [Moles/Vol] 106 mmol/L Normal 98-107 [facility] CO2 [Moles/Vol] 29 mmol/L Normal 21-32 [facility] Creatinine [Mass/Vol] 0.84 mg/dL Normal 0.55-1.02 [facility] Glucose [Mass/Vol] 105 mg/dL High 70-99 [facility] Potassium [Moles/Vol] 3.7 mmol/L Normal 3.5-5.1 [facility] Sodium [Moles/Vol] 143 mmol/L Normal 136-145 [facility] Urea nitrogen (BldV) [Mass/Vol] 23 mg/dL High 7.0-18.0 [facility] Urea nitrogen/Creatinine [Mass ratio] 27 mg/mg Normal [facility] OR Nursingon 01-30-2019 OR Nursing Normal [facility] PACU I Nursingon 01-30-2019 PACU I Nursing CO NA PACU I Nursing Record Summary Primary Physician: Amrik Vickers MD Finalized Date/Time: 01/30/19 12:48:37 Pt. Name: ANGELIKA MUIR/Sex: 1940 Female Med Rec #: [id number] Physician: Amrik Vickers MD Financial #: [id number] Pt. Type: I Room/Bed: [address] [place] [address] Admit/Disch: 01/30/19 05:59:00 - Institution: CO NA [...] By: Ana Rosas RN 01/30/19 12:48 Normal [facility] PreOp Nursingon 01-30-2019 PreOp Nursing CO NA PreOp Nursing Record Summary Primary Physician: Amrik Vickers MD Finalized Date/Time: 01/30/19 09:02:48 Pt. Name: ANGELIKA MUIR/Sex: 1940 Female Med Rec #: [id number] Physician: Amrik Vickers MD Financial #: [id number] Pt. Type: I Room/Bed: / Admit/Disch: 01/30/19 [...] By: Chelsy Batista RN 01/30/19 09:02 Normal [facility] Basic Metabolic Panelon 12-22 Calcium [Mass/Vol] 9.0 mg/dL Normal 8.5-10.6 [facility] Chloride [Moles/Vol] 103 mmol/L Normal 98-107 [facility] CO2 [Moles/Vol] 31 mmol/L Normal 21-32 [facility] Creatinine [Mass/Vol] 0.78 mg/dL Normal 0.55-1.02 [facility] Glucose [Mass/Vol] 90 mg/dL Normal 70-99 [facility] Potassium [Moles/Vol] 4.1 mmol/L Normal 3.5-5.1 [facility] Sodium [Moles/Vol] 142 mmol/L Normal 136-145 [facility] Urea nitrogen (BldV) [Mass/Vol] 19 mg/dL High 7.0-18.0 [facility] Urea nitrogen/Creatinine [Mass ratio] 24 mg/mg Normal [facility] CBC with Differentialon 12-22 Basophils (Bld) [#/Vol] 0.0 thou/mcL Normal 0.0-0.2 [facility] Basophils/100 WBC (Bld) 0.8 % Normal 0-3 [facility] Differential cell count method Nom (Bld) AUTOMATED DIFFERENTIAL Normal [facility] Eosinophils (Bld) [#/Vol] 0.1 thou/mcL Normal 0.0-0.4 [facility] Eosinophils/100 WBC (Bld) 2.0 % Normal 0-7 [facility] Erythrocyte distribution width (RBC) [Entitic vol] 14.4 % Normal 11.7-15.0 [facility] Hematocrit (Bld) [Volume fraction] 36.7 % Normal 34.0-50.0 [facility] Hemoglobin (Bld) [Mass/Vol] 12.1 g/dL Normal 11.5-17.0 [facility] Lymphocytes (Bld) [#/Vol] 1.3 thou/mcL Normal 0.7-4.5 [facility] Lymphocytes/100 WBC (Bld) 26.0 % Normal 14-46 [facility] MCH (RBC) [Entitic mass] 29.2 Picograms Normal 27.0-34.0 [facility] MCHC (RBC) [Mass/Vol] 32.9 g/dL Normal 32.0-36.0 [facility] MCV (RBC) [Entitic vol] 88.7 fL Normal 80-98 [facility] Monocytes (Bld) [#/Vol] 0.4 thou/mcL Normal 0.1-1.0 [facility] Monocytes/100 WBC (Bld) 8.5 % Normal 4-13 [facility] Neutrophils (Bld) [#/Vol] 3.1 thou/mcL Normal 1.5-7.8 [facility] Neutrophils/100 WBC (Bld) 62.7 % Normal 40-74 [facility] Platelet mean volume (Bld) [Entitic vol] 8.4 fL Normal 7.5-11.2 [facility] Platelets (Bld) [#/Vol] 214 thou/mcL Normal 140-415 [facility] RBC (Bld) [#/Vol] 4.13 x(10)6/mcL Normal 3.80-5.60 Mo [facility] WBC (Bld) [#/Vol] 5.0 thou/mcL Normal 4.0-10.5 [facility] Culture Methicillin Resistan t Staph aureuson 01-19-2019 MRSA isol Org specific cx Ql (Unsp spec) [facility] Microbiology PROCEDURE: Culture Methicillin Resistant Staph aureus SOURCE: Nasal Swab BODY SITE: COLLECTED DATE/TIME: 01/19/2019 15:10 EDT RECEIVED DATE/TIME: 01/19/2019 15:10 EDT START DATE/TIME: 01/19/2019 15:10 EDT FREE TEXT SOURCE: NASAL SWAB-. INTERFACED REPORTS Final Report [] Verified Date/Time/Personnel: 01/20/2019 21:24 EDT CONTRIBUTOR_SYSTEM, CO_PN *MRSA SCREEN* NEGATIVE FOR METHICILLIN(OXACILLIN) RESISTANT STAPHYLOCOCCUS AUREUS. Normal [facility] Comment on above: Performed By: #### 1 3317-3 #### [facility] [address], [place] Partial Thromboplastin Time (aPTT)on 01-19-2019 aPTT Coag (PPP) [Time] 31 Sec Normal 23.2-34.6 [facility] Prothrombin Timeon 9 INR Coag (Bld) [Relative time] 1.0 {INR} Normal [facility] Comment on above: Result Comment: DURI NG THE INDUCTION PHASE OF ORAL ANTICOAGULATION, THE INR MAY NOT REFLECT THE ANTICOAGULANT STATUS OF THE PATIENT. THERAPEUTIC RANGES FOR INR'S ARE: MOST CLINICAL SITUATIONS: INR 2.0-3.0 MECHANICAL PROSTHETIC VALVES: INR 2.5-3.5 CRITICAL: INR 5.0 PT Coag (PPP) [Time] 12.6 Sec Normal 11.9-14.6 [facility] XR C-Spine 4-5 Viewson 01-19 XR C-Spine 4-5 Views EXAMINATION TYPE: X R C-Spine 4-5 Views DATE OF EXAM : [...] disease, notably advanced at C5-C6 and C6-C7. [facility] thanks you for the opportunity to care for your patient. Workstation ID: [id number] FINAL REPORT Dictated By: Fritz Styles MD 01/19/2019 21:13 Assigned Physician: Fritz Styles MD Reviewed and Electronically Signed By: Fritz Styles MD 01/19/2019 21:17 Transcribed by: JESSIE 01/19/2019 21:13 Technologist: KAYLIN Normal [facility] Culture Anaerobicon 10-19-19 19 Bacteria identified Anaer cx Nom (Unsp spec) [facility] Microbiology PROCEDURE: Culture Anaerobic SOURCE: Joint [...] 20:16 EDT CONTRIBUTOR_SYSTEM, CO_PN CULTURE IN PROGRESS [facility] Comment on above: Performed By: #### 6 35-3 #### [address] Culture Body Fluid + Suscept ibility + Smear Directon 10-18-2018 Bacteria identified Sterile body fluid culture Nom (Unsp spec) [facility] Microbiology PROCEDURE: Culture Body Fluid + [...] NO EPITHELIALS SEEN, NO ORGANISMS SEEN Normal [facility] Comment on above: Performed By: #### 6 36-1 #### [address] Culture Funguson 10-18-2018 Fungus identified Cx Nom (Unsp spec) [facility] Microbiology PROCEDURE: Culture Fungus SOURCE: Joint [...] WILL BE HELD FOR 1-4 WEEKS Normal [facility] Comment on above: Performed By: #### 5 80-1 #### [facility] [address], [place] XR SHOULDER LEFT MIN 2 VIEWS [...] I have reviewed andapproved this report. Normal [facility] Cardiovascular Lab Reporton 11-07-2016 Cardiovascular Lab Report [facility] Patient Name: Angelika Muir [facility] MR #: [id number] Physician: Ankur Bhakta M.D.Medicine Service Date: 11/06/2016Division of Birthdate: 1940Cardiology Room #: CCAdult CardiovascularServicesUniver [facility] [place] [place], [place] [address]Eikvg Fax Cardiovascular Laboratory ReportINDICATIONS: Ms. 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 Isaw her in our [place] office. She has had a complete evaluation [...] Placement of an implantable loop recorder for idiopathicsyncope.Electronic ally Signed by:Ankur France M.D. 11/09/2016 12:02 P Ankur France M.D.Date Dict: 11/06/2016/03:29 P/Ankur France M.D.Date Trans: 11/07/2016 06:05 A/cornelloDN_JN:[id number]: Eduardo Rose M.D. [address] [place] [id number] [facility] Vital Signs Date Time Vital Sign Value Performing Clinician Facility 11-07-2023 02:09-0400 Diastolic blood pressure 58 mm[Hg] DO Yolanda Schwerer Work Phone: [facility] 11-07-2023 02:09-0400 Heart rate 83 /min DO Yolanda Schwerer Work Phone: [facility] 11-07-2023 02:09-0400 Respiratory rate 18 /min DO Yolanda Schwerer Work Phone: [facility] 11-07-2023 02:09-0400 SaO2% (BldA) [Mass fraction] 98 % DO Yolanda Schwerer Work Phone: [facility] 11-07-2023 02:09-0400 Systolic blood pressure 122 mm[Hg] DO Yolanda Schwerer Work Phone: [facility] 11-06-2023 22:54-0400 Body height 170.18 cm DO Yolanda Schwerer Work Phone: [facility] 11-06-2023 22:54-0400 Body temperature 98 [degF] DO Yolanda Bermanerer Work Phone: [facility] 11-06-2023 22:54-0400 Body weight 58.96 kg DO Yolanda Schwerer Work Phone: [facility] 06-24-2023 16:23-0400 Body height 162.6 cm Otis Furlong DO Work Phone: [facility] 06-24-2023 16:23-0400 Body mass index (BMI) [Ratio] 31.07 kg/m2 Otis Furlong DO Work Phone: [facility] 06-24-2023 16:23-0400 Body weight 82.1 kg Otis Furlong DO Work Phone: [facility] 06-24-2023 16:23-0400 Diastolic blood pressure 78 mm[Hg] Otis Furlong DO Work Phone: [facility] 06-24-2023 16:23-0400 Systolic blood pressure 132 mm[Hg] Otis Furlong DO Work Phone: [facility] 05-24-2023 14:31-0500 Body height 162.6 cm Otis Furlong DO Work Phone: [facility] 05-24-2023 14:31-0500 Body mass index (BMI) [Ratio] 31.07 kg/m2 Otis Furlong DO Work Phone: [facility] 05-24-2023 14:31-0500 Body temperature 98.29 [degF] Otis Furlong DO Work Phone: [facility] 05-24-2023 14:31-0500 Body weight 82.1 kg Otis Furlong DO Work Phone: [facility] 05-24-2023 14:31-0500 Diastolic blood pressure 60 mm[Hg] Otis Martinezlong DO [facility] 05-24-2023 14:31-0500 Heart rate 81 /min Otis Martinezlong DO Work Phone: [facility] 05-24-2023 14:31-0500 SaO2% (BldA) [Mass fraction] 96 % Otis Martinezlong DO Work Phone: [facility] 05-24-2023 14:31-0500 Systolic blood pressure 120 mm[Hg] Otis Martinezlong DO Work Phone: [facility] 04-02-2023 09:47-0500 Body height 162.6 cm Veronica TANGPATTERN PAINTER Work Phone: [facility] 04-02-2023 09:47-0500 Body mass index (BMI) [Ratio] 30.21 kg/m2 Veronica Chahal APRN-PATTERN PAINTER Work Phone: [facility] 04-02-2023 09:47-0500 Body temperature 97 [degF] Veronica TANGPATTERN PAINTER Work Phone: [facility] 04-02-2023 09:47-0500 Body weight 79.83 kg Veronica TANGPATTERN PAINTER Work Phone: [facility] 04-02-2023 09:47-0500 Diastolic blood pressure 70 mm[Hg] Veronica Chahal APRN-PATTERN PAINTER Work Phone: [facility] 04-02-2023 09:47-0500 Heart rate 105 /min Veronica BERMUDEZ Work Phone: [facility] 04-02-2023 09:47-0500 Respiratory rate 16 /min Veronica Chahal APRN-PATTERN PAINTER Work Phone: [facility] 04-02-2023 09:47-0500 SaO2% (BldA) [Mass fraction] 97 % Veronica Chahal SUPPORT SERVICES SPECIALIST-PATTERN PAINTER Work Phone: [employer] 04-02-2023 09:47-0500 Systolic blood pressure 130 mm[Hg] Veronica Chahal APRN-PATTERN PAINTER Work Phone: [employer] 03-24-2021 15:45-0500 Body height 166.37 cm Yolanda Schwerer Other [facility] Other 03-24-2021 15:45-0500 Body mass index (BMI) [Ratio] 35.23 kg/m2 Yolanda Schwerer Other [facility] Other 03-24-2021 15:45-0500 Body temperature 99.4 [degF] Yolanda Schwerer Other [facility] Other 03-24-2021 15:45-0500 Body weight 97.52 kg Yolanda Schwerer Other [facility] Other 03-24-2021 15:45-0500 Diastolic blood pressure 78 mm[Hg] Yolanda Schwerer Other [facility] Other 03-24-2021 15:45-0500 SaO2% (BldA) [Mass fraction] 96 % Yolanda Schwerer Other [facility] Other 03-24-2021 15:45-0500 Systolic blood pressure 132 mm[Hg] Yolanda Schwerer Other [facility] Other Encounters Encounter Date Encounter Type Care Provider Facility Start: 11-06-2023 End: 11-07-2023 Emergency department patient visit DO Yolanda Schwerer Work Phone: [facility] Work Phone: Start: 10-26-2023 End: 10-26-2023 ambulatory [facility] Start: 10-20-2023 End: 10-20-2023 ambulatory OTIS CHAVES Not Available Start: 10-04-2023 End: 10-04-2023 ambulatory MAGNO KO Not Available Start: 08-09-2023 End: 08-10-2023 ambulatory [facility] Start: 07-29-2023 End: 07-29-2023 ambulatory [facility] Start: 07-26-2023 End: 07-27-2023 ambulatory Tony Holguin MD Facility: [facility] Start: 07-12-2023 End: 07-13-2023 ambulatory oTny [facility] Start: 06-24-2023 End: 06-24-2023 Patient encounter procedure Otis Chaves DO Work Phone: [facility] Comment on above: Medicare annual well ness visit, subsequent (Primary Dx); Screening for depression Start: 06-24-2023 End: 06-24-2023 ambulatory [facility] Start: 05-25-2023 End: 05-25-2023 Patient encounter procedure Otis Chaves DO Work Phone: [facility] Comment on above: Abnormal urinalysis (Primary Dx); Abnormal kidney function Start: 05-25-2023 ambulatory [facility] Start: 05-24-2023 End: 05-24-2023 ambulatory [facility] Start: 05-24-2023 End: 05-25-2023 ambulatory [facility] Start: 05-24-2023 End: 05-24-2023 Office outpatient visit 15 minutes Otis Chaves DO Work Phone: [facility] Comment on above: Abnormal kidney func tion (Primary Dx); Hyperglycemia; Class 1 obesity due to excess calories with serious comorbidity and body mass index (BMI) of 31.0 to 31.9 in adult; Memory impairment Start: 05-10-2023 End: 05-11-2023 ambulatory Tony Holguin MD Facility:[facility] Start: 04-19-2023 End: 04-20-2023 Orders Only Veronica Chahal SUPPORT SERVICES SPECIALIST-PATTERN PAINTER Work Phone: [facility] Comment on above: Bilateral hip pain ( Primary Dx) Start: 04-02-2023 End: 04-02-2023 Office outpatient visit 15 minutes Veronica Chahal SUPPORT SERVICES SPECIALIST-PATTERN PAINTER Work Phone: [facility] Comment on above: PMR (polymyalgia rhe umatica) ([facility]) (Primary Dx); Bilateral hip pain; Confusion caused by a drug Start: 04-02-2023 End: 04-02-2023 ambulatory [facility] Start: 05-25-2022 End: 05-26-[address] SARIKA MUHAMMAD . Facility: Start: 07-15-2021 End: 07-15-2021 ambulatory Yolanda Schwerer Other [facility] Other Start: 07-15-2021 Telephone encounter Yolanda Schwerer [facility] Start: 04-28-2021 End: 04-28-2021 ambulatory Yolanda Schwerer Other [facility] Other Start: 04-28-2021 Telephone encounter Yolanda Schwerer [facility] Start: 04-03-2021 End: 04-03-2021 ambulatory Yolanda Schwerer Other [facility] Other Start: 04-03-2021 Telephone encounter Yolanda Schwerer [facility] [place] Start: 03-24-2021 End: 03-24-2021 ambulatory Yolanda Schwerer Other [facility] Other Start: 03-24-2021 Office outpatient vi sit 15 minutes Yolanda Schwerer [facility] [place] Start: 03-20-2021 End: 03-20-2021 ambulatory Yolanda Schwerer Other [facility] Other Start: 03-20-2021 Telephone encounter Yolanda Schwerer [facility] Start: 03-03-2021 End: 03-03-2021 ambulatory Yolanda Schwerer Other [facility] Other Start: 03-03-2021 Telephone encounter Yolanda Bermanerer [facility] [place] Start: 07-21-2017 Ambulatory JOSE LUIS LIZAMA [facility] Start: 11-06-2016 End: 11-07-2016 Ambulatory ANKUR FRANCE Facility:[facility] Procedures Date Procedure Procedure Detail Performing Clinician Start: 06-24-2023 Adult depression screening assessment Otis Chaves DO Work Phone: Start: 05-25-2023 Urnls dip stick/tabl et rgnt non-auto w/o micrscp Otis Johnie Burlesonng DO Work Phone: Start: 05-24-2023 Adult depression screening assessment Otis Chaves DO Work Phone: Start: 12-23-2022 Adult depression screening assessment Veronica Chahal SUPPORT SERVICES SPECIALIST-PATTERN PAINTER Work Phone: Start: 06-18-2015 H/O: artificial joint Status p ost total shoulder arthroplasty Veronica Chahal SUPPORT SERVICES SPECIALIST-PATTERN PAINTER Work Phone: Plan of Treatment Date Care Activity Detail Author Start: 06-23-2024 Adult BMI Screening Adult BMI Screen [facility] Start: 06-23-2024 [facility] Start: 06-23-2024 Fall Risk Screening Fall Risk Screen ing [facility] Start: 06-23-2024 Medicare Annual Wellness Visit Medicare Annual Wellness Visit [facility] Start: 05-23-2024 Adult BMI Screening Adult BMI Screen ing [facility] Start: 05-23-2024 Depression Screening Depression Scre ening [facility] Start: 05-23-2024 Fall Risk Screening Fall Risk Screen ing [facility] Start: 05-23-2024 Tobacco Screening Tobacco Screening [facility] Start: 04-02-2024 Adult BMI Screening Adult BMI Screen ing [facility] Start: 04-02-2024 Tobacco Screening Tobacco Screening [facility] Start: 12-24-2023 Depression Screening Depression Scre ening [facility] Start: 12-24-2023 Fall Risk Screening Fall Risk Screen ing [facility] Start: 12-24-2023 Tobacco Screening Tobacco Screening [facility] Start: 11-21-2023 Influenza vaccination Influenza Vacc ine [facility] Start: 11-07-2023 Computed tomography of abdomen and pelvis with contrast CT abdomen pelvis w con [facility] Start: 11-07-2023 CT Abdomen and Pelvi s W contrast IV [facility] Start: 07-29-2023 End: 07-29-2023 Patient encounter procedure 07/29/2023 3:30 PM EDT Office Visit [facility] [address] [place] [address] Otis Chaves, DO [address], [facility] [address] [facility] Start: 06-20-2023 Influenza vaccination Influenza Vacc ine [facility] Comment on above: Postponed from 11/20 (Patient Refused) Start: 04-02-2023 End: 04-02-2024 XR Hip - bilateral 2 Views X-ray hips bilateral with or without pelvis 2 views Imaging Routine Bilateral hip pain Expected: 04/02/2023, Expires: 04/02/2024 [facility] Work Phone: Comment on above: Expected: 04/02/2023 , Expires: 04/02/2024 Start: 11-20-2022 Influenza vaccination Influenza Vacc ine [facility] Start: 1957 DTaP,Tdap and Td Vaccines (1 - Tdap) DTaP,Tdap and Td Vaccines (1 - Tdap) [facility] Start: 02-24-1956 Adult BMI Follow Up Plan Adult BMI Follow Up Plan [facility] Start: 1940 Medicare Annual Wellness Visit Medicare Annual Wellness Visit [facility] End: 05-23-2024 Hemoglobin A1c/Hemoglobin.total in Blood Hemoglobin A1c Lab Routine Hyperglycemia 1 Occurrences starting 05/24/2023 until 05/23/2024 [facility] Work Phone: Comment on above: 1 Occurrences starti ng 05/24/2023 until 05/23/2024 Hemoglobin A1c/Hemoglobin.total in Blood Hemoglobin A1c Lab Routine Hyperglycemia 05/24/2023 11:12 PM EST [facility] Patient Education Abdominal Pain, Adult E D [facility] Work Phone: Patient referral [facility] Work Phone: Immunizations Immunization Date Immunization Notes Care Provider Chava lan 05-25-2022 COVID-19, mRNA, LNP- S, PF, 100mcg/0.5mL Dose Veronica Chahal SUPPORT SERVICES SPECIALIST-PATTERN PAINTER Work Phone: [facility] 10-24-2021 zoster vaccine recombinant Veronica Chahal SUPPORT SERVICES SPECIALIST-PATTERN PAINTER Work Phone: [facility] 07-22-2021 zoster vaccine recombinant Veronica Chahal SUPPORT SERVICES SPECIALIST-PATTERN PAINTER Work Phone: [facility] 05-09-2021 Influenza, injectabl e, Madin Follansbee Canine Kidney, preservative free, quadrivalent Veronica Chahal SUPPORT SERVICES SPECIALIST-PATTERN PAINTER Work Phone: [facility] 05-09-2021 influenza virus vaccine, unspecified formulation Veronica Chahal SUPPORT SERVICES SPECIALIST-PATTERN PAINTER Work Phone: [facility] 07-05-2020 COVID-19 Vaccine Pfi zer - Documentation Purposes Only Yolanda Schwerer Other [facility] 06-07-2020 COVID-19 Vaccine Pfi zer - Documentation Purposes Only Yolanda Schwerer Other [facility] 05-02-2018 influenza, seasonal, injectable, preservative free Veronica Chahal SUPPORT SERVICES SPECIALIST-PATTERN PAINTER Work Phone: [facility] 04-30-2018 zoster vaccine recombinant Yolanda Schwerer Other [facility] Other 01-06-2018 influenza, high dose seasonal, preservative-free Veronica Chahal SUPPORT SERVICES SPECIALIST-PATTERN PAINTER Work Phone: [facility] 01-06-2018 zoster vaccine recombinant Yolanda Schwerer Other [facility] Other 03-19-2017 pneumococcal conjuga te vaccine, 13 valent Yolanda Schwerer Other [facility] 02-25-2017 influenza, high dose seasonal, preservative-free Veronica Chahal SUPPORT SERVICES SPECIALIST-PATTERN PAINTER Work Phone: [facility] 04-27-2016 pneumococcal polysaccharide vaccine, 23 valent Yolanda Schwerer Other [facility] Other 12-18-2014 pneumococcal polysaccharide vaccine, 23 valent Yolanda Schwerer Other [facility] Other 12-18-2014 zoster vaccine, live Yolanda Schwerer Other [facility] Other 02-11-2009 zoster vaccine, live Yolanda Schwerer Other [facility] Other Payers Date Payer Category Payer Self-pay [id number] 2015 Unknown [id number] 2003 Medicare [id number] 2003 Medicare [id number] 2003 Medicare [id number] 1959 Medicare [id number] 1959 Unknown [id number] 2. [id number] 1938 Unknown [id number] 2.16.84 0.1.054500.3.579.2.593 1938 Unknown [id number] 2.16.8 40.1.158677.3.579.2.1286 1938 Unknown [id number] 2.16. 840.1.733647.3.579.2.196 1938 Unknown [id number] 2.16. 840.1.119091.3.579.2.196 1938 Unknown [id number] 2.16. 840.1.112261.3.579.2.196 1938 Unknown [id number] 2.16. 840.1.604494.3.579.2.196 1938 Unknown [id number] 2.16. 840.1.730543.3.579.2.196 1938 Unknown [id number] 2.16. 840.1.666017.3.579.2.196 1938 Unknown [id number] 2.16.84 0.1.212010.3.579.2.1259 1938 Unknown [id number] 2.16.84 0.1.155420.3.579.2.1259 1938 Unknown [id number] 2.16.8 40.1.331454.3.579.2.1286 1938 Unknown [id number] 2.16.8 40.1.832968.3.579.2.1286 1938 Unknown [id number] 2.16.8 40.1.916316.3.579.2.1286 1938 Unknown [id number] 2.16.8 40.1.068185.3.579.2.1286 1938 Unknown [id number] 2.16.8 40.1.934377.3.579.2.1286 1938 Unknown [id number] 2.16.84 0.1.771680.3.579.2.1286 Medicare [id number] 2.1 [id number] Unknown [id number] 2.16.8 40.1.653236.3.579.2.531 Social History Date Type Detail Facility Unknown if ever smoked [facility] Other Start: 04-02-2023 End: 06-24-2023 Sex Assigned At [facility] Start: 01-06-2022 End: 11-07-2023 Tobacco smoking status NHIS Ex-smoker [facility] History of tobacco use Current smoker [facility] History of tobacco use Cigarette Smoker P [facility] Start: 01-06-2022 Tobacco use and exposure Smokeless tobacco non-user [facility] Start: 04-02-2023 End: 05-24-2023 Alcohol intake Ex-drinker (finding) [facility] Start: 04-02-2023 End: 06-24-2023 History of Social function [facility] Adolescent depressio n screening assessment 0 [facility] Start: 01-06-2022 Tobacco Comment only smoked for 3 months 60 years ago, 2 cigarettes a day [facility] Start: 10-15-2021 Alcohol Comment rare- on new years clive [facility] Start: 1940 [facility] Has the electric, ga s, oil, or [employer] threatened to shut off services in your home in past 12Mo No [facility] Do you belong to any clubs or organizations such as religious groups, unions, fraternal or athletic groups, or school groups? Yes [facility] Are you now , , , , never or living with a partner? [facility] How often to you hav e a drink containing alcohol? Never [facility] Do you feel stress - tense, restless, nervous, or anxious, or unable to sleep at night because your mind is troubled all the time - these days [OSQ] Not at all [facility] Start: 1940 Sex Assigned At Female [facility] Clinical Notes 04-18-2020 to 06-24-2023 Otis G Tino, DO - 06/24/2023 4:20 PM EDTOtis Johnie Tino, DO 05/25/2023 4:35 PM ESTSignificant Event - Otis G Tino, DO - 05/24/2023 6:08 PM ESTOtis Johnie Tino, DO - 05/24/2023 2:00 PM EST Note [...] Do you have a durable power of securities attorney?: Yes Cognitive Screening Do you have [...] year (around 06/23/2024). documented in this encounter [facility] 05-25-2023 History of Presen t illness Narrative Patient dropped off a urine to be tested documented in this encounter [facility] 05-24-2023 Progress note Formatting of t his note might be different from the original. She would only be 7, not 11 [facility] 05-24-2023 Miscellaneous Notes Formattin g of this note might be different from the original. She would only be 7, not 11 documented in this encounter [facility] 05-24-2023 History of Presen t illness [...] checks. She does have durable power of securities attorney of healthcare and finance. She also [...] done as well. documented in this encounter [facility] 04-02-2023 History of Presen t illness [...] nursing note reviewed. Exam conducted with a band sewer present (ES Moncada present). Neck: Vascular: No [...] orders for this visit: PMR (polymyalgia rheumatica) ([facility]) - Ambulatory referral to Pain [...] El 04/02/23 1303 documented in this encounter [facility] 05-24-2022 Note PROCEDURE: XR HIP RT 2 [...] by: CAMILO ARNOLD Date: 2022-05-24 19:59 [facility] 03-24-2021 Evaluation note Encounter Date Diagnosis Assessment Notes Mar, Skin rash (ICD-10 - R21) i think eczema, will do clobetasol she already has this. will continue on lotramin. she will call in a few days if not improved. [facility] Other 03-11-2021 NoteHNO ID: [id number] Author: Negro Pompa Service: ? Author Type: Physician Type: Progress Notes Filed: 05/30/2020 6:55 PM Note Text: [facility] FEMALE PELVIC [...] questions and concerns were addressed. Negro Pompa, [facility]01-28-2021 NotePatient Outreach (COOCC3) ANGELIKA MUIR ([id number]) 1940 F Date Time Provider Department 04/18/20 PENNY RIBEIRO3 During your visit today, we recorded the following information about you: Allergies As of Date: 04/18/2020 Noted Allergy Reaction TAPE (ADHESIVE TAPE (ROSINS)) 06/28/2012 2 - Rash Date Reviewed: 01/09/2020 Reviewed by: Niru Cunningham - Fully Assessed Order(s):SARS-COVID VACCINE 1ST DOSE APPT [[id number]] Order #: [id number] FUTURE Prescriptions as of 04/18/2020 Sig: SERTRALINE [...] 01/10/2014 Encounter Status:Closed by EPIC, PRODUSER on 04/22/20[facility] Evaluation noteNo InformationNortP[facility] Other Evaluation note* Diagnosis PMR (polymyalgia rheumatica) ([facility])- Primary Polymyalgia rheumatica Bilateral hip pain Pain in joint, pelvic region and thigh Confusion caused by a drug Drug-induced delirium documented [facility] Diagnosis Bilateral hip pain- Primary Pain in joint, pelvic region and thigh documented [facility] encounter [facility]* Diagnosis Abnormal kidney function- Primary Nonspecific abnormal results of kidney function study Hyperglycemia Other abnormal glucose Class 1 obesity due to excess calories with serious comorbidity and body mass index (BMI) of 31.0 to 31.9 in adult Memory impairment Memory loss documented in this encounter [facility]* Diagnosis Abnormal urinalysis- Primary Other nonspecific finding on examination of urine Abnormal kidney function Nonspecific abnormal results of kidney function study documented in this encounter [employer] [facility]* Diagnosis Medicare annual wellness visit, subsequent- Primary Screening for depression documented in this encounter [facility] noteNo assessment information available [facility] Work Phone: [facility] general Narrative - Reported* Type Description Date Medical History hx of Low BP Medical History vertigo Medical History depression Surgical History CARDIAC LOOP RECORDER IMPLANT Surgical History BILATERAL HIP ARTHROPLASTY Surgical History BILATERAL CMC JOINT ARTHROPLAST Y Surgical History TRIGGER RELEASE RIGHT RING FING ER Surgical History BILATRAL FOOT SURGERY Surgical History LEFT TOTAL SHOULDER X2 Hospitalization History see surgical hx [employer] Other InstructionsNot on filedocumented in this encounter [facility] on filedocumented in this encounter [facility]ructionsNot on filedocumented in this encounter [employer] Summary Purpose Family History No Family History Records Found Relationship Condition Age at Onset Recorded Date/T betty father Unknown mother Unknown Advance Directives No Advanced Directives Records Found Advance Directive Response Recorded Date/ Time Advance Directives No September 19 4:15pm Assessments Note Patient: ANGELIKA MUIR MR N: [id number] Age: 78 years Sex: Female : 1940 Associated Diagnoses: None Author: Elbert Gleason MD Assessment Assessment Diagnosis: Osteoarthritis (JAK39-YA M17.11, 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 Right TKA. Dr. Vickers. [...] Pain is currently described as intermittent but qtkgsdnw-qv-fviinp, particularly with activity. Symptoms have failed to respond to more conservative measures, and she now presents for surgical intervention. Please see below regarding the status of active medical conditions and assessment and plan for preoperative medical risk stratification. Medical Illnesses: 1. Osteoarthritis affecting (more content not included)... Note CLINICAL SUMMARY Please take this summary document to your follow up appointments. [facility] 02/02/19 09:32 [address] [place]. [address] PATIENT INFORMATION Name: ANGELIKA MUIR Address: [address] [place] [id number] Age: 78 Years Phone: [phone] : 1940 12:00 MRN: [id number] Sex: Female Race: White Ethnicity: Not Hispan/Lat Admitted From: Clinic or [facility] Medical Service: Orthopedic Surgery Nurse Unit/Bed: ([place]) [facility] 0219-01 Admit Date: 01/30/2019 05:59 PCP: Eduardo Rose MD PHYSICIANS INVOLVED WITH CARE Attending Physicians: Rancho SIEGEL , Amrik Sutton - Orthopaedic Surg Admitting Physician: Amrik Vickers MD - Orthopaedic Surg Primary Care Physician:Eduardo Rose MD,Internal Medicine, - Consults: Elbert Gleason MD - Internal Medicine RAMÍREZ Rod (more content not included)... Note Patient: ANGELIKA MUIR MR N: [id number] Age: 78 years Sex: Female : 1940 [...] (more content not included)... Note HNO ID: [id number] Author: Cheryle Wilcox (Aa) Service: ? Author Type: Dock Operator Type: Anesthesia Procedure Notes Filed: 05/01/2020 3:33 PM Note Text: ANESTHESIOLOGY PROCEDURE NOTE Airway General Information Procedure Start Time/Medication Administration: 05/01/2020 3:28 PM Patient location during procedure: OR Timeout Performed Pre-procedure: timeout performed Consent Obtained: Yes Patient identity confirmed: arm band, care hospitality team member and patient Staffing Anesthesiologist: Ihsan Gamino CAA: Ankur Wilcox (Aa) Indications and Patient Condition Preoxygenated: yes Patient position: sniffing Indications for airway management: anesthesia anesthesia circuit Method: asleep Final Airway Details Final airway type: supraglottic airway Final Supraglottic Airway: IGEL Size 4 Seal Adequate: yes SIGNATURE: [place] Goznales PATIENT NAME: Angelika Muir DATE: May 01, 2020 TIME: 3:33 PM CSN: [id number] Note HNO ID: [id number] Author: Ariana Bhat) Victor Hugo Service: Urology Author Type: Resident Type: Brief Op Note Filed: 05/01/2020 4:09 PM Note Text: BRIEF OPERATIVE / PROCEDURE NOTE LOG ID: [id number] SURGERY/PROCEDURE DATE: 05/01/2020 INCISION/PROCEDURE START TIME: 3:28 PM INCISION CLOSE/PROCEDURE END TIME: 4:05 PM SURGEON(S)/PROCEDURALIST(S) AND TRUCK DRIVING(S): Surgeon(s) and Role: * Negro Slopnick - [...] 01, 2020 TIME: 4:07 PM PAGER/CONTACT #: [phone] (more content not included)... Hospital Course Note CLINICAL SUMMARY Please take this summary document to your follow up appointments. [facility] 02/02/19 09:32 [address] [place]. [address] PATIENT INFORMATION Name: ANGELIKA MUIR Address: [address] [place] [id number] Age: 78 Years Phone: [phone] : 1940 12:[birth year] MRN: [id number] Sex: Female Race: White Ethnicity: Not Hispan/Lat Admitted From: Clinic or [facility] Medical Service: Orthopedic Surgery Nurse Unit/Bed: (IA) 2N 0219-01 Admit Date: 01/30/2019 05:59 PCP: Eduardo Rose MD PHYSICIANS INVOLVED WITH CARE Attending Physicians: Rancho SIEGEL , Amrik Sutton - Orthopaedic Surg Admitting Physician: [place] SIEGEL , Amrik Sutton - Orthopaedic Surg Primary Care Physician:Eduardo Rose MD,Internal Medicine, - Consults: Elbert Gleason MD - Internal Medicine RAMÍREZ Rod (more content not included)... Procedure Findings Note HNO ID: [id number] Author: Cheryle Wilcox (Aa) Service: ? Author Type: Dock Operator Type: Anesthesia Procedure Notes Filed: 05/01/2020 3:33 PM Note Text: ANESTHESIOLOGY PROCEDURE NOTE Airway General Information Procedure Start Time/Medication Administration: 05/01/2020 3:28 PM Patient location during procedure: OR Timeout Performed Pre-procedure: timeout performed Consent Obtained: Yes Patient identity confirmed: arm band, care hospitality team member and patient Staffing Anesthesiologist: Ihsan Gamino CAA: Ankur Wilcox (Aa) Indications and Patient Condition Preoxygenated: yes Patient position: sniffing Indications for airway management: anesthesia anesthesia circuit Method: asleep Final Airway Details Final airway type: supraglottic airway Final Supraglottic Airway: IGEL Size 4 Seal Adequate: yes SIGNATURE: [place] PATIENT NAME: Angelika Muir DATE: May 01, 2020 TIME: 3:33 PM CSN: [id number] Note HNO ID: [id number] Author: Ariana Gay Service: Urology Author Type: Resident Type: Brief Op Note Filed: 05/01/2020 4:09 PM Note Text: BRIEF OPERATIVE / PROCEDURE NOTE LOG ID: [id number] SURGERY/PROCEDURE DATE: 05/01/2020 INCISION/PROCEDURE START TIME: 3:28 PM INCISION CLOSE/PROCEDURE END TIME: 4:05 PM SURGEON(S)/PROCEDURALIST(S) AND TRUCK DRIVING(S): Surgeon(s) and Role: * Negro Pompa - [...] 01, 2020 TIME: 4:07 PM PAGER/CONTACT #: [phone] (more content not included)... Note Patient: ANGELIKA MUIR MR N: [id number] Age: 78 years Sex: Female : 1940 [...] (01/30 13:08) Oxygen Delivery: Nasal cannula (01/30 13:) O2 Device Flow: 2 L/min Pain Score: [...] Referred To Contact Diagnoses PMR (polymyalgia rheumatica) ([facility]) Veronica Chahal APRN-PATTERN PAINTER [address] [place] [address] Referral ID Status Reason Start Date Expiration Date V isits Requested Visits Authorized [id number] Pending Review 1 1 Specialty Diagnoses / Procedures Referred By Contac t Referred To Contact Pain Medicine Diagnoses [place]algia [place]a) [place] [place] Bilateral hip pain Veronica Chahal, LUCAS-PATTERN PAINTER [address] [place] [address] [address] Referral ID Status Reason Start Date Expiration Date V isits Requested Visits Authorized [id number] Pending Review 04/02/2023 04/01/2024 1 1 Chief Complaint and Reason for Visit Chief Complaint abd pain Additional Source Comments INFORMATION SOURCE (unrecogn ized section and content) DATE CREATED AUTHOR 09/09/2017 [facility] DATE CREATED AUTHOR AUTHOR'S ORGANIZ ATION 09/15/2017 [facility] DATE CREATED AUTHOR AUTHOR'S ORGANIZ ATION 02/06/2019 [facility] DATE CREATED AUTHOR AUTHOR'S ORGANIZ ATION 11/22/2019 [facility] DATE CREATED AUTHOR AUTHOR'S ORGANIZ ATION 05/08/2020 [facility] DATE CREATED AUTHOR AUTHOR'S ORGANIZ ATION 04/05/2021 [facility] DATE CREATED AUTHOR AUTHOR'S ORGANIZ ATION 05/31/2022 [facility] DATE CREATED AUTHOR AUTHOR'S ORGANIZ ATION 05/26/2023 [facility] DATE CREATED AUTHOR AUTHOR'S ORGANIZ ATION 08/15/2023 [facility] DATE CREATED AUTHOR AUTHOR'S ORGANIZ ATION 10/22/[address] [facility] DATE CREATED AUTHOR AUTHOR'S ORGANIZ ATION 10/28/2023 [facility] DATE CREATED AUTHOR AUTHOR'S ORGANIZ ATION 11/18/2023 [facility] REASON FOR VISIT (unrecogniz ed section and content) Reason Comments Osteoarthritis Pain management Reason Comments Memory Loss Reason Comments medicare annual wellness Care Teams (unrecognized sec tion and content) Gear Tooth Grinding Machine Operator Relationship Specialty Start Date End Date Otis Chaves DO [address] [place] [address] PCP - General Family Medicine 10/03/21 Gear Tooth Grinding Machine Operator Relationship Specialty Start Date End Date Otis Chaves DO [address] [place] [address] PCP - General Family Medicine 10/03/21 Gear Tooth Grinding Machine Operator Relationship Specialty Start Date End Date Otis Chaves DO [address], [place] [address] PCP - General Family Medicine 10/03/21 Gear Tooth Grinding Machine Operator Relationship Specialty Start Date End Date Otis Chaves DO [address], [place] [address] PCP - General Family Medicine 10/03/21 Gear Tooth Grinding Machine Operator Relationship Specialty Start Date End Date Otis Chaves DO [address], [place] [address] PCP - General Family Medicine 10/03/21 Team Status: Active Member Role Status Dates Yolanda Calvo DO Primary Care Provider Active Team Status: Inactive Member Role Status Dates Yolanda Calvo DO Primary Care Provider Active Start: November 06, 2023 End: November 07, 2023 Rita Corado DO Emergency Provider Active St art: November 06, 2023 End: November 07, 2023 Goals (unrecognized section and content) Goals may be documented in a n alternate section FOR RECORDS PERTAINING TO PATIENTS WHO ARE [...] BE BASED ON THE PRIMARY CLINICAL RECORDS. [employer] [facility]. provides no warranty or guarantee of the accuracy or completeness of information in this document.
[2023-12-06 11:55] VITALS: BP 155/74; PULSE 86; O2SAT 93
[2023-12-06 11:57] VITALS: BP 139/70; PULSE 89; O2SAT 91
--- NOTE | 2023-12-06 11:59 | P.ON_ITS ---
Date of procedure: 12/06/23 Pre-op diagnosis: Pain due to lumbar stenosis with neurogenic claudication Post-op diagnosis: same as pre-op Procedure: Procedure: Right L3-4, L4-5 transforaminal epidural steroid injection Medications: Bupivacaine 0.25% 2cc, lidocaine 2% 1cc, dexamethasone 10mg The patient was seen and examined in the preoperative holding area.? Informed consent was obtained and placed on the chart.? Patient was brought to the medical procedure unit and placed in the prone position where a timeout was completed verifying the correct patient, procedure site, position, and planned special equipment using sterile aseptic technique.? Under direct fluoroscopic visualization a 25-gauge Quincke tipped spinal needle was advanced to the designated neural foramen where contrast dye was injected to show adequate spread.? The needle was inserted at level right L3-4. There was no evidence of vascular or adverse uptake.? Epidural spread was appreciated.? The above- mentioned injectate was then placed in a 1.5 mL aliquot preceded by negative aspiration.? The needle was removed. The needle was inserted and the procedure repeated at level right L4-5.? The surgery site was covered.? Patient was taken to the postprocedural recovery area and monitored for an appropriate length of time before found suitable for discharge in the accompaniment of a responsible adult. Anesthesia: Local Surgeon: Tony Holguin Pathology: none sent Condition: stable Disposition: no change
[2023-12-06] MEDS: 0.9 % SODIUM CHLORIDE 10 ML SYRINGE - SALINE FLUSH INJ (12:01)
[2023-12-06] MEDS: IOHEXOL 240 MG/ML - 10 ML VIAL 12 MG INJ (12:02)
[2023-12-06] MEDS: LIDOCAINE HCL 2% 400 MG/20 ML MDV INJ (12:02)
[2023-12-06] MEDS: BUPIVACAINE HCL 0.25% PF 25 MG/10 ML VIAL INJ (12:02)
[2023-12-06] MEDS: DEXAMETHASONE SOD PHOS 10 MG/ML VIAL INJ (12:02)
== END 2023-12-06 12:07 | disposition home or self-care (01) ==
LOC: SURGOUT 11:05
PROVIDERS: PCP Family Medicine; Visit Provider Anesthesiology
DX: M48.062 Spinal stenosis, lumbar region with neurogenic claudication (principal)
CPT/HCPCS: 64483; 64484; J0665; J1100; Q9966

== ENCOUNTER 2024-05-31 12:29 | Outpatient (OUT) | payer MEDICARE, OTHER, SELFPAY ==
--- OUTSIDE RECORDS SUMMARY | 2024-05-31 12:34 | XMS_ITS | CCD ---
Author Organization [facility] Care Team Providers Care Quality Assurance Engineer Name Role Phone , JOSE LUIS Y Unavailable Unavailable SELF, SELF Unavailable Unavailable EDUARDO ROSE P Unavailable Unavailable LIZAMA, JOSE LUIS Y Unavailable Unavailable LIZAMA, JOSE LUIS Y Unavailable Unavailable ROSEEDUARDO ALFORD P Unavailable Unavailable ANKUR FRANCE Unavailable Unavailable [...] GRAHAM Consulting Unavailable SISTER, WALI Consulting Unavailable OTIS CHAVES Referring Unavailable OTIS CHAVES Primary Care Unavailable MAGNO KO Attending Unavailable OTIS CHAVES Referring Unavailable DO Yolanda Calvo Primary Care Provider [phone] DO Rita Corado Emergency Provider Yolanda Calvo Primary Care Unavailable Rita Corado Attending Unavailable Rita Corado Admitting Unavailable Gieditis , Tony Rodríguez Attending Unavailable Giedraitis , Tony Rodríguez Attending Unavailable Giedraitis , Tony Rodríguez Attending Unavailable Giedraitis , Tony Rodríguez Attending Unavailable Giedraitis , Tony Rodríguez Attending Unavailable Giedraitis , Tony Rodríguez Attending Unavailable Giedraitis MD, Tony Rodríguez Attending Unavailable Furlong DO, Otis G Primary Care Provider [phone] FURLONG, OTIS G Attending Unavailable FURLONG, OTIS G Referring Unavailable FURLONG, OTIS G Primary Care Unavailable FURLONG, OTIS G Attending Unavailable FURLONG, OTIS G Referring Unavailable FURLONG, OTIS G Primary Care Unavailable RODRÍGUEZCESIA Miner Attending Unavailable FURLONG, OTIS G Referring Unavailable [...] Date of Onset Reaction(s) Facility (1 source) 82051,00; Translations: [72058,00] Propensity to adverse reactions (disorder) 9 [facility] Repository (5 sources) Adhesive agent; Translations: [ADHESIVE] Propensity to adverse reactions to drug (disorder) 3 Rash [facility] Repository (5 sources) Fludrocortisone ; Translations: [FLUDROCORTISON E] Drug Allergy 2 Other (See Comments) [facility] Repository (5 sources) OTHER; Translations: [OTHER] Propensity to adverse reactions [...] a day for 28 day(s) Mar, Active donepezil hydrochloride 10 mg oral tablet (3 sources) Start: 02-21-2024 take 1 tablet by mouth once daily donepeziL (ARICEPT) 10 mg tablet TAKE 1 TABLET BY MOUTH NIGHTLY 30 tablet 5 02/21/2024 Active escitalopram 5 mg oral tablet (4 sources) Serotonin Reuptake Inhibitor Start: 04-03-2024 take 1 tablet by mouth in the morning escitalopram (LEXAPRO) 5 mg tablet Take 1 tablet (5 mg total) by mouth in the morning. 30 tablet 2 04/03/2024 Active Start: 03-20-2024 End: 04-03-2024 take 1 tablet by mouth in the morning escitalopram (LEXAPRO) 5 mg tablet TAKE 1 TABLET BY MOUTH IN THE MORNING 30 tablet 2 03/20/2024 04/03/2024 Discontinued (Reorder) fludrocortisone acetate 0.1 mg oral tablet (1 [...] 30 day(s) takes to equal 75mg Active 24 hr mirabegron 50 mg extended release oral tablet (4 sources) beta3-Adrenergic Agonist Start: 03-24-2024 take 1 tablet by mouth every twenty-four hours in the morning mirabegron (MYRBETRIQ) 50 mg tablet extended release 24 hr Take 1 tablet (50 mg total) by mouth in the morning. 90 tablet 2 03/24/2024 Active Start: 07-29-2023 End: 03-24-2024 take 1 tablet by mouth every twenty-four hours in the morning mirabegron (MYRBETRIQ) 25 mg tablet extended release 24 hr Take 1 tablet (25 mg total) by mouth in the morning. 30 tablet 2 07/29/2023 03/24/2024 Discontinued (Dose adjustment) mupirocin 0.02 mg/mg topical ointment (7 sources) RNA Synthetase Inhibitor Antibacterial Start: 02-28-2021 Mupirocin Active 1 APPLIC TOPICAL Twice daily February 28, 2021 1:00am Mupirocin 2 % 1 application Externally Twice a day Active naproxen 250 mg oral tablet (4 sources) Nonsteroidal Anti-inflammatory Drug Start: 04-03-2024 take 1 tablet by mouth twice daily as needed for pain naproxen (NAPROSYN) 250 mg tablet Take 1 tablet (250 mg total) by mouth 2 (two) times a day as needed for pain. 60 tablet 1 04/03/2024 Active Start: 01-13-2024 End: 04-03-2024 take 1 tablet by mouth twice daily as needed for pain naproxen (NAPROSYN) 250 mg tablet Take 1 tablet (250 mg total) by mouth 2 (two) times a day as needed for pain. 60 tablet 1 01/13/2024 04/03/2024 Discontinued (Reorder) microencapsulated potassium chloride 20 meq extended release oral tablet (7 sources) Start: 09-19-2017 take 20 mEq by mouth once daily Potassium Chloride Active 20 MEQ PO Daily September 19, 2017 12:00am predniSONE 5 mg oral tablet (3 sources) Start: 03-24-2023 take 1 tablet by mouth in the morning predniSONE (DELTASONE) 5 mg tablet Take 1 tablet (5 mg total) by mouth in the morning. 03/24/2023 Active zolpidem tartrate 5 mg oral tablet (6 sources) gamma-Aminobut yric Acid-ergic Agonist take 1 tablet by mouth at bedtime as needed Zolpidem Tartrate 5 MG 1 tablet at bedtime as needed Oral for 30 Active Completed/Discontinued Medications Medication Drug Class(es) Dates Sig (Normalized) Sig (Original) gabapentin 100 mg oral capsule (1 source) Anti-epileptic Agent Start: 12-20-2023 End: 03-24-2024 take 1 capsule by mouth three times daily gabapentin (NEURONTIN) 100 mg capsule Indications: Bilateral hip pain take 1 capsule by mouth three times daily 90 capsule 1 12/20/2023 03/24/2024 Discontinued (Therapy completed) hyaluronate (5 sources) Start: 02-14-2018 Supartz Jan, 25 mg Start: 02-07-2018 Supartz Jan 25 mg Start: 01-31-2018 Supartz Jan 25 mg Start: 01-24-2018 Supartz Jan 25 mg Start: 01-17-2018 Supartz Dec 25 mg hydroCHLOROthiazide 25 mg oral tablet (1 source) Thiazide Diuretic Start: 09-19-2017 End: 02-28-2021 Hydrochlorothiazide Discontinued TABLET September 19, 2017 12:00am February 28, 2021 3:20pm sertraline 50 mg oral tablet (1 source) Serotonin Reuptake Inhibitor Start: 09-19-2017 End: 02-28-2021 Sertraline Discontinued TABLET September 19, 2017 12:00am February 28, 2021 3:20pm terbinafine 250 mg oral tablet (1 source) Allylamine Antifungal Start: 09-19-2017 End: 02-28-2021 Terbinafine Hcl Discontinued TABLET September 19, 2017 12:00am February 28, 2021 3:22pm Triamcinolone (2 sources) Corticosteroid Start: 11-16-2017 Kenalog -40 mg Oct, 10 mg Start: 09-19-2017 End: 02-28-2021 Triamcinolone Acetonide Disc ontinued September 19, 2017 12:00am February 28, 2021 3:22pm Problems Active Problems Problem Classification Problem Date Documented Date Episodic/Chronic Abdominal pain (2 sources) Abdominal pain; Translations: [Unspecified abdominal pain] Onset: 11-06-2023 11-07-2023 Episodic Anxiety disorders (6 sources) Anxiety; Translations: [Anxiety disorder, unspecified] Onset: 12-09-2023 03-24-2024 Chronic Asthma (3 sources) Asthma; Translations: [Unspecified asthma, uncomplicated] Onset: 11-28-2021 11-28-2021 Chronic Cardiac dysrhythmias (4 sources) Supraventricular tachycardia; Translations: [Supraventricular tachycardia (CMS-HCC)] Onset: 03-24-2024 03-24-2024 Chronic Coronary atherosclerosis and other heart disease (4 sources) Atherosclerotic heart disease of [place] coronary artery without angina pectoris; Translations: [Coronary atherosclerosis] Onset: 01-13-2012 11-28-2021 Chronic Delirium, dementia, and amnestic and other cognitive disorders (5 sources) Senile dementia; 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] Onset: 03-24-2024 03-24-2024 Chronic Genitourinary symptoms and ill-defined conditions (8 sources) Mixed urinary incontinence; Translations: [Mixed incontinence] Onset: 11-28-2021 03-24-2024 Chronic Osteoarthritis (13 sources) Osteoarthritis of right knee joint; Translations: [Unilateral primary osteoarthritis, right knee] Onset: 04-02-2023 Chronic Other aftercare (1 source) Other skilled nursing (current) drug therapy; Translations: [OTH SUPERINTENDENT STEVEDORING CURRENT DRUG THERAPY] Onset: 05-28-2022 Episodic Other connective tissue disease (2 sources) Polymyalgia rheumatica; Translations: [POLYMYALGIA RHEUMATICA] Onset: 05-28-2022 Chronic Other connective tissue disease (1 source) Presence of artificial hip joint, bilateral; Translations: [PRESENCE ARTIFICIAL HIP JOINT BILAT] Onset: 05-28-2022 Chronic Other connective tissue disease (4 sources) Polymyalgia rheumatica; Translations: [Polymyalgia rheumatica] Onset: 07-08-2022 03-24-2024 Chronic Other connective tissue disease (1 source) Muscle weakness (generalized); Translations: [MUSCLE WEAKNESS GENERALIZED] Onset: 05-28-2022 Episodic Other ear and sense organ disorders (3 sources) Sensorineural hearing loss, bilateral; Translations: [Sensorineural hearing loss, bilateral] Onset: 11-28-2021 11-28-2021 Chronic Other nutritional; endocrine; and metabolic disorders [...] tissue, unspecified] 02-28-2021 Episodic Residual codes; unclassified (3 sources) Obstructive sleep apnea syndrome; Translations: [Obstructive sleep apnea (adult) (pediatric)] Onset: 12-21-2007 11-28-2021 Chronic Residual codes; unclassified (6 sources) Insomnia; Translations: [Insomnia, unspecified] Episodic Screening or history of mental health and substance abuse (2 sources) Personal history of nicotine dependence; Translations: [PERSONAL HISTORY OF NICOTINE DEPENDENCE] Onset: 11-06-2016 Episodic Spondylosis; intervertebral disc disorders; other back problems (2 sources) Lumbar spondylosis; Translations: [Spondylosis without myelopathy or radiculopathy, lumbar region] 05-22-2024 Chronic Spondylosis; intervertebral disc disorders; other back problems (2 sources) Spinal stenosis of lumbar region; Translations: [Spinal stenosis, lumbar region without neurogenic claudication] 05-22-2024 Episodic Unclassified (1 source) Condition Update / 178() Onset: 07-21-2017 Unclassified (1 source) Sleep apnea, unspecified; Translations: [SLEEP APNEA, UNSPECIFIED] Onset: 11-06-2016 Unclassified (2 sources) Unknown / UNK(Unknown) Onset: 11-06-2016 Unclassified (1 source) CONTACT W/AND (SUSP) EXPOS COVID-19; Translations: [CONTACT W/AND (SUSP) EXPOS COVID-19] Onset: 05-28-2022 Unclassified (1 source) Dementia in other diseases classified elsewhere, mild, without behavioral disturbance, psychotic disturbance, mood disturbance, and anxiety; Translations: [Dementia in other diseases classified elsewhere, mild, without behavioral disturbance, psychotic disturbance, mood disturbance, and anxiety] Onset: 03-24-2024 Unclassified (1 source) Supraventricular tachycardia, unspecified; Translations: [Supraventricular tachycardia, unspecified] Onset: 03-24-2024 Unclassified (1 source) medicare annual wellness Onset: 06-24-2023 Past or Other Problems Problem Classification Problem Date Documented Date Episodic/Chronic Cancer of breast (3 sources) Malignant neoplasm of female breast; Translations: [Malignant neoplasm of unspecified site of unspecified female breast] Onset: 01-08-2012 Resolved: 05-24-2023 05-24-2023 Chronic Cancer of breast (1 source) Personal history of malignant neoplasm of breast; Translations: [PERSONAL HISTORY OF MALIGNANT NEOPLASM OF BREAST] Onset: 11-06-2016 Episodic Chronic ulcer of skin (3 sources) Ulcer of lower extremity; Translations: [Non-pressure chronic ulcer of unspecified part of left lower leg limited to breakdown of skin] Onset: 06-26-2022 Resolved: 05-24-2023 05-24-2023 Chronic Complications of surgical procedures or medical care (3 sources) Non-healing surgical wound; Translations: [Other complications of procedures, not elsewhere classified, initial encounter] Onset: 12-05-2021 Resolved: 03-11-2022 03-11-2022 Episodic Diabetes mellitus without complication (2 sources) Hyperglycemia, unspecified; Translations: [Hyperglycemia, unspecified] Onset: 05-24-2023 Episodic Essential hypertension (9 sources) Essential hypertension; Translations: [Essential (primary) hypertension] Onset: 11-28-2021 Resolved: 05-24-2023 05-24-2023 Chronic Genitourinary symptoms and ill-defined conditions (4 sources) Urgent desire to urinate; Translations: [Urgency of urination] Onset: 11-28-2021 11-28-2021 Episodic Mood disorders (12 sources) Mood disorder; Translations: [Unspecified mood [affective] disorder] Onset: 12-21-2007 Resolved: 06-26-2022 06-26-2022 Chronic Mood disorders (3 sources) Mood disorders Onset: 03-24-2024 03-24-2024 Open wounds of extremities (3 sources) Open wound of left lower leg; Translations: [Unspecified open wound, left lower leg, initial encounter] Onset: 11-27-2021 Resolved: 10-26-2023 10-26-2023 Episodic Other aftercare (1 source) terminal operator (current) use of aspirin; Translations: [SUPERINTENDENT STEVEDORING (CURRENT) USE OF ASPIRIN] Onset: 11-06-2016 Episodic Other connective tissue disease (3 sources) History of right total knee replacement; Translations: [Presence of right artificial knee joint] Onset: 11-28-2021 Resolved: 06-26-2022 06-26-2022 Chronic Other connective tissue disease (3 sources) Tear of right rotator cuff; Translations: [Unspecified rotator cuff tear or rupture of right shoulder, not specified as traumatic] Onset: 06-03-2016 06-03-2016 Episodic Other connective tissue disease (3 sources) Trochanteric bursitis; Translations: [Trochanteric bursitis, left hip] Onset: 01-02-2022 01-02-2022 Episodic Other diseases of bladder and urethra (3 sources) Urethral stricture; Translations: [Unspecified urethral stricture, male, unspecified site] Onset: 11-28-2021 11-28-2021 Episodic Other diseases of kidney and ureters (2 sources) Disorder of kidney and ureter, unspecified; Translations: [Disorder of kidney and ureter, unspecified] Onset: 05-24-2023 Episodic Other diseases of veins and lymphatics (9 sources) Stasis dermatitis; Translations: [Venous insufficiency (chronic) (peripheral)] Onset: 11-28-2021 11-28-2021 Episodic Other nervous system disorders (3 sources) Abnormal gait; Translations: [Unspecified abnormalities of gait and mobility] Onset: 11-28-2021 11-28-2021 Episodic Other nervous system disorders (1 source) Other symptoms and signs involving cognitive functions and awareness; Translations: [Other symptoms and signs involving cognitive functions and awareness] Onset: 10-26-2023 Episodic Other non-epithelial cancer of skin (9 sources) Malignant neoplasm of skin of lower [...] Episodic Other nutritional; endocrine; and metabolic disorders (3 sources) Severe obesity; Translations: [Class 3 severe obesity due to excess calories with serious comorbidity in adult, unspecified BMI] Onset: 06-26-2022 Resolved: 07-07-2022 07-07-2022 Chronic Other skin disorders (1 source) Rash and other nonspecific skin eruption Onset: 03-24-2021 Resolved: 03-24-2021 Episodic Swati-; endo-; and myocarditis; cardiomyopathy (except that caused by tuberculosis or sexually transmitted disease) (3 sources) Disorder of pericardium; Translations: [Disease of pericardium, unspecified] Onset: 01-08-2012 11-28-2021 Episodic Residual codes; unclassified (2 sources) Other amnesia; Translations: [Other amnesia] Onset: 05-24-2023 Episodic Residual codes; unclassified (3 sources) Postmenopausal state; Translations: [Asymptomatic menopausal state] Onset: 12-09-2023 12-09-2023 Episodic Residual codes; unclassified (1 source) Asymptomatic menopausal state; Translations: [Asymptomatic menopausal state] Onset: 12-09-2023 Episodic Residual codes; unclassified (1 source) Memory loss Onset: 05-24-2023 Episodic Rheumatoid arthritis and related disease (3 sources) Rheumatoid arthritis; Translations: [Rheumatoid arthritis, unspecified] Onset: 06-03-2016 Resolved: 07-08-2022 07-08-2022 Chronic Syncope (7 sources) Syncope and collapse; Translations: [Syncope and collapse] Onset: 09-26-2012 11-28-2021 Episodic Unclassified (1 source) Condition Update; Translations: [Condition Update] Onset: 07-21-2017 Results Test Name Value Interpretation Reference Range Facility Alanine aminotransferase [En zymatic activity/volume] in Serum or PlasmaOrdered By: Rita Corado on 11-07-2023 ALT [Catalytic activity/Vol] 5 U/L Low 7-52 [facility] Comment on above: Performed By: #### H EPATIC, LIPASE, BMP, DIFF CBC #### [facility] [address] Albumin [Mass/volume] in Ser um or Plasma by Bromocresol green (BCG) dye binding methoOrdered By: Rita Corado on 11-07-2023 Albumin BCG dye [Mass/Vol] 3.5 g/dL 3.5-5.7 [facility] Alkaline phosphatase [Enzyma tic activity/volume] in Serum or PlasmaOrdered By: Rita Corado on 11-07-2023 ALP [Catalytic activity/Vol] 77 U/L Normal 34-104 [facility] Comment on above: Performed By: #### H EPATIC, LIPASE, BMP, DIFF CBC #### [facility] [address] Aspartate aminotransferase [ Enzymatic activity/volume] in Serum or PlasmaOrdered By: Rita Corado on 11-07-2023 AST [Catalytic activity/Vol] 10 U/L Low 13-39 [facility] Comment on above: Performed By: #### H EPATIC, LIPASE, BMP, DIFF CBC #### [facility] [address] Basic Metabolic Panelon 10-20 Creatinine Clr Calc Pharmacy 40.73 Normal [facility] Comment on above: Performed By: #### H EPATIC, LIPASE, BMP, DIFF CBC #### [facility] [address] GFR/1.73 sq M.predicted MDRD (S/P/Bld) [Vol rate/Area] 59.463 mL/min/{1.73_m2} Normal [facility] Comment on above: Performed By: #### H EPATIC, LIPASE, BMP, DIFF CBC #### [facility] [address] Basophils Auto (Bld) [#/Vol] Ordered By: Rita Corado on 11-07-2023 Basophils (Bld) [#/Vol] N/A [facility] Basophils/100 WBC Auto (Bld) Ordered By: Rita Corado on 11-07-2023 Basophils/100 WBC (Bld) N/A [facility] Bilirubin Test strip Ql (U)O rdered By: Rita Corado on 11-07-2023 Bilirubin Ql (U) Negative Negative [facility] Bilirubin.direct [Mass/volum e] in Serum or PlasmaOrdered By: Rita Corado on 11-07-2023 Bilirubin.direct [Mass/Vol] 0.10 mg/dL 0.03-0.18 [facility] Bilirubin.total [Mass/volume ] in Serum or PlasmaOrdered By: Rita Corado on 11-07-2023 Bilirubin [Mass/Vol] 0.5 mg/dL Normal 0.3-1.0 [facility] Comment on above: Performed By: #### H EPATIC, LIPASE, BMP, DIFF CBC #### [address] abdomen pelvis w conon CT abdomen pelvis w con [facility] [place] [address] [place] [address] CT Scan Report Signed Patient: Angelika Muir MR#: [id number] : 1940 Acct:[id number] Age/Sex: 83 / F ADM Date: 11/06/23 Loc: ER Room: Type: [facility] ER Attending Dr: Copies to: Rita [...] Martínez Smith M.D.11/07/2023 2:53 PM Dictation Location: [place] [address] Transcribed By: JOSE 11/07/23 1453 Dictated By: Martínez Smith II, MD 11/07/23 1444 Signed By: 11/07/23 1453 Normal [facility] Calcium [Mass/volume] in Ser um or PlasmaOrdered By: Rita Corado on 11-07-2023 Calcium [Mass/Vol] 9.0 mg/dL Normal 8.6-10.3 [facility] Comment on above: Performed By: #### H EPATIC, LIPASE, BMP, DIFF CBC #### [facility] [address] [place] [address] [place] Carbon dioxide, total [Moles /volume] in Serum or PlasmaOrdered By: Rita Corado on 11-07-2023 CO2 [Moles/Vol] 29.8 mmol/L Normal 21.0-31.0 [facility] Comment on above: Performed By: #### H EPATIC, LIPASE, BMP, DIFF CBC #### [facility] [address] [place] [id number] [place] Chloride [Moles/volume] in S ricky or PlasmaOrdered By: Rita Corado on 11-07-2023 Chloride [Moles/Vol] 101 mmol/L Normal 98-107 [facility] Comment on above: Performed By: #### H EPATIC, LIPASE, BMP, DIFF CBC #### [facility] [address] [place] [id number] [place] Color of Urine by AutoOrdere d By: Rita Corado on 11-07-2023 Color (U) Light-yellow Normal Yellow [facility] Comment on above: Order Comment: Name Collection Type:: Clean-Voided Midstream Performed By: #### U A #### [address] Creatinine [Mass/volume] in Serum or PlasmaOrdered By: Rita Corado on 11-07-2023 Creatinine [Mass/Vol] 0.94 mg/dL Normal 0.60-1.20 [facility] Comment on above: Performed By: #### H EPATIC, LIPASE, BMP, DIFF CBC #### [address] Diff and CBCon 11-07-2023 Mean Corpuscular HGB Conc 33.4 g/dL Normal 32.0-35.0 [facility] Comment on above: Performed By: #### H EPATIC, LIPASE, BMP, DIFF CBC #### [address] Monocytes/100 WBC (Bld) 21.51 % High 0.00-20.00 [facility] Comment on above: Result Comment: For adults in ED, MDW > 20.0 may be associated with a higher risk of sepsis during the first 12 hrs of hospital admission Performed By: #### H EPATIC, LIPASE, BMP, DIFF CBC #### [address] Platelet Estimate Normal Normal Normal [facility] Comment on above: Performed By: #### H EPATIC, LIPASE, BMP, DIFF CBC #### [address] Platelet Morphology Normal Normal Normal [facility] Comment on above: Result Comment: PERF ORMED BY: [place] [address] PATHOLOGIST FORGING MACHINE OPERATOR JORGE LUIS RUELAS M.D. Performed By: #### H EPATIC, LIPASE, BMP, DIFF CBC #### [address] Eosinophils Auto (Bld) [#/Vo l]Ordered By: Rita Corado on 11-07-2023 Eosinophils (Bld) [#/Vol] N/A [facility] Eosinophils/100 WBC Auto (Bl d)Ordered By: Rita Corado on 11-07-2023 Eosinophils/100 WBC (Bld) N/A [facility] Erythrocyte distribution wid th [Ratio] by Automated countOrdered By: Rita Corado on 11-07-2023 Erythrocyte distribution width (RBC) [Ratio] 14.2 % Normal 11.9-15.3 [facility] Comment on above: Performed By: #### H EPATIC, LIPASE, BMP, DIFF CBC #### [facility] [address] [place] [address] [place] Erythrocytes [#/volume] in B lood by Automated countOrdered By: Rita Corado on 11-07-2023 RBC (Bld) [#/Vol] 3.89 10*6/uL Normal 3.60-5.00 [facility] Comment on above: Performed By: #### H EPATIC, LIPASE, BMP, DIFF CBC #### [facility] [address] [place] [address] [place] Glucose [Mass/volume] in Ser um or PlasmaOrdered By: Rita Corado on 11-07-2023 Glucose [Mass/Vol] 98 mg/dL Normal 70-100 [facility] Comment on above: ADA recommended refe rence rangeRandom Glucose Reference Range is dependent on time and content of last meal. Glucose of more than 200 mg/dL in a nonstressed, ambulatory subject supports the diagnosis of Diabetes Mellitus. Result Comment: [place] om Glucose Reference Range is dependent on time and content of last meal. Glucose of more than 200 mg/dL in a nonstressed, ambulatory subject supports the diagnosis of Diabetes Mellitus. ADA recommended reference range Performed By: #### H EPATIC, LIPASE, BMP, DIFF CBC #### [facility] [address] [place] [address] [place] Glucose [Mass/volume] in Uri ne by Test stripOrdered By: Rita Corado on 11-07-2023 Glucose Test strip (U) [Mass/Vol] Normal mg/dL Normal [facility] Hematocrit [Volume Fraction] of Blood by Automated countOrdered By: Rita Corado on 11-07-2023 Hematocrit (Bld) [Volume fraction] 32.8 % Low 34.0-46.4 [facility] Comment on above: Performed By: #### H EPATIC, LIPASE, BMP, DIFF CBC #### [address] Hemoglobin Test strip Ql (U) Ordered By: Rita Corado on 11-07-2023 Hemoglobin Ql (U) Negative Negative [facility] Hemoglobin [Mass/volume] in BloodOrdered By: Rita Corado on 11-07-2023 Hemoglobin (Bld) [Mass/Vol] 11.0 g/dL Low 11.8-15.4 [facility] Comment on above: Performed By: #### H EPATIC, LIPASE, BMP, DIFF CBC #### [address] Hepatic Panelon 11-07-2023 Albumin [Mass/Vol] 3.5 g/dL Normal 3.5-5.7 [facility] Comment on above: Performed By: #### H EPATIC, LIPASE, BMP, DIFF CBC #### [address] Bilirubin,Indirect 0.4 mg/dL Normal [facility] Comment on above: Performed By: #### H EPATIC, LIPASE, BMP, DIFF CBC #### [address] Bilirubin.indirect [Mass/Vol] 0.10 mg/dL Normal 0.03-0.18 [facility] [facility] Comment on above: Performed By: #### H EPATIC, LIPASE, BMP, DIFF CBC #### [address] Ketones [Presence] in Urine by Test stripOrdered By: Rita Corado on 11-07-2023 Ketones Ql (U) Negative Normal Negative [facility] Comment on above: Order Comment: Name Collection Type:: Clean-Voided Midstream Performed By: #### U A #### [address] Leukocyte esterase [Presence ] in Urine by Test stripOrdered By: Rita Corado on 11-07-2023 Leukocyte esterase Test strip Ql (U) Negative Normal Negative [facility] Comment on above: Order Comment: Name Collection Type:: Clean-Voided Midstream Performed By: #### U A #### [address] Leukocytes [#/volume] correc isabela for nucleated erythrocytes in Blood by Automated counOrdered By: Rita Corado on 11-07-2023 WBC corrected for nucl RBC Auto (Bld) [#/Vol] 6.7 10*3/uL 3.8-11.6 [facility] Leukocytes [#/volume] in Blo od by Automated countOrdered By: Rita Corado on 11-07-2023 WBC (Bld) [#/Vol] 6.7 10*3/uL Normal 3.8-11.6 [facility] Comment on above: Performed By: #### H EPATIC, LIPASE, BMP, DIFF CBC #### [facility] [address] [place] [address] Lipase [Enzymatic activity/v olume] in Serum or PlasmaOrdered By: Rita Corado on 11-07-2023 Lipase [Catalytic activity/Vol] 32.0 U/L Normal 11.0-82.0 [facility] Comment on above: Result Comment: PERF ORMED BY: [place] [address] PATHOLOGIST FORGING MACHINE OPERATOR JORGE LUIS RUELAS M.D. Performed By: #### H EPATIC, LIPASE, BMP, DIFF CBC #### [address] Lymphocytes Auto (Bld) [#/Vo l]Ordered By: Rita Corado on 11-07-2023 Lymphocytes (Bld) [#/Vol] N/A [facility] Lymphocytes/100 WBC Auto (Bl d)Ordered By: Rita Corado on 11-07-2023 Lymphocytes/100 WBC (Bld) N/A [facility] Lymphocytes/100 leukocytes i n Blood by Manual countOrdered By: Rita Corado on 11-07-2023 Lymphocytes/100 WBC (Bld) 22 % Normal 18-42 [facility] Comment on above: Performed By: #### H EPATIC, LIPASE, BMP, DIFF CBC #### [facility] [address] [place] [address] MCH [Entitic mass] by Automa isabela countOrdered By: Rita Corado on 11-07-2023 MCH (RBC) [Entitic mass] 28.2 pg Normal 24.7-34.3 [facility] Comment on above: Performed By: #### H EPATIC, LIPASE, BMP, DIFF CBC #### [facility] [address] [place] [address] MCHC Auto (RBC) [Mass/Vol]Or dered By: Rita Corado on 11-07-2023 MCHC (RBC) [Mass/Vol] 33.4 g/dL 32.0-35.0 [facility] MCV [Entitic volume] by Auto mated countOrdered By: Rita Corado on 11-07-2023 MCV (RBC) [Entitic vol] 84.4 fL Normal 80-100 [facility] Comment on above: Performed By: #### H EPATIC, LIPASE, BMP, DIFF CBC #### [facility] [address] [place] [address] Manual blood segmented neutr ophils/100 leukocytesOrdered By: Rita Corado on 11-07-2023 Segmented neutrophils/100 WBC (Bld) 73 % High 50-70 [facility] Comment on above: Performed By: #### H EPATIC, LIPASE, BMP, DIFF CBC #### [facility] [address] [place] [address] Monocyte distribution width [Entitic volume] in Blood by AutomatedOrdered By: Rita Corado on 11-07-2023 Monocyte distribution width Auto (Bld) [Entitic vol] 21.51 % High 0.00-20.00 [facility] Comment on above: For adults in ED, MD W > 20.0 may be associated with a higher risk of sepsis during the first 12 hrs of hospital admission Monocytes Auto (Bld) [#/Vol] Ordered By: Rita Corado on 11-07-2023 Monocytes (Bld) [#/Vol] N/A [facility] Monocytes/100 WBC Auto (Bld) Ordered By: Rita Corado on 11-07-2023 Monocytes/100 WBC (Bld) N/A [facility] Monocytes/100 leukocytes in Blood by Manual countOrdered By: Rita Corado on 11-07-2023 Monocytes/100 WBC (Bld) 5 % Normal 2-11 [facility] Comment on above: Performed By: #### H EPATIC, LIPASE, BMP, DIFF CBC #### [facility] [address] [place] [address] [place] Neutrophils Auto (Bld) [#/Vo l]Ordered By: Rita Corado on 11-07-2023 Neutrophils (Bld) [#/Vol] N/A [facility] Neutrophils/100 WBC Auto (Bl d)Ordered By: Rita Corado on 11-07-2023 Neutrophils/100 WBC (Bld) N/A [facility] Nitrite Test strip Ql (U)Ord ered By: Rita Corado on 11-07-2023 Nitrite Ql (U) Negative Negative [facility] No Panel InformationOrdered By: Rita Corado on 11-07-2023 Estimated GFR (CKD-EPI) 59.463 mL/Min [facility] Creatinine Clearance (Chem 40.73 [facility] Nucleated erythrocytes [Pres ence] in Blood by Automated countOrdered By: Rita Corado on 11-07-2023 Nucleated RBC Auto Ql (Bld) N/A [facility] Platelet adequacy [Presence] in Blood by Light microscopyOrdered By: Rita Corado on 11-07-2023 Platelets LM Ql (Bld) Normal Normal [facility] Platelet mean volume [Entiti c volume] in Blood by Automated countOrdered By: Rita Corado on 11-07-2023 Platelet mean volume (Bld) [Entitic vol] 7.3 fL Normal 6.3-10.7 [facility] Comment on above: Performed By: #### H EPATIC, LIPASE, BMP, DIFF CBC #### [facility] [address] [place] [address] [place] Platelet morphology finding [Identifier] in BloodOrdered By: Rita Corado on 11-07-2023 Platelet morphology finding Nom (Bld) Normal Normal [facility] Platelets [#/volume] in Bloo d by Automated countOrdered By: Rita Corado on 11-07-2023 Platelets (Bld) [#/Vol] 326 10*3/uL Normal 150-450 [facility] Comment on above: Performed By: #### H EPATIC, LIPASE, BMP, DIFF CBC #### [address] Potassium [Moles/volume] in Serum or PlasmaOrdered By: Rita Corado on 11-07-2023 Potassium [Moles/Vol] 3.9 mmol/L Normal 3.5-5.1 [facility] Comment on above: Performed By: #### H EPATIC, LIPASE, BMP, DIFF CBC #### [address] Protein Test strip (U) [Mass /Vol]Ordered By: Rita Corado on 11-07-2023 Protein (U) [Mass/Vol] Negative Negative [facility] Protein [Mass/volume] in Ser um or PlasmaOrdered By: Rita Corado on 11-07-2023 Protein [Mass/Vol] 6.9 g/dL Normal 6.4-8.9 [facility] Comment on above: Performed By: #### H EPATIC, LIPASE, BMP, DIFF CBC #### [address] RBC morphologyOrdered By: Kings Corado on 11-07-2023 RBC morphology finding Nom (Bld) Normal Normal Normal [facility] Comment on above: Performed By: #### H EPATIC, LIPASE, BMP, DIFF CBC #### [address] Serum globulin measurement b y calculation (mass/volume)Ordered By: Rita Corado on 11-07-2023 Globulin (S) [Mass/Vol] 3.4 g/dL Normal [facility] Comment on above: Performed By: #### H EPATIC, LIPASE, BMP, DIFF CBC #### [address] Serum or plasma albumin/glob ulin mass ratioOrdered By: Rita Corado on 11-07-2023 Albumin/Globulin [Mass ratio] 1.0 {ratio} Normal [facility] Comment on above: Performed By: #### H EPATIC, LIPASE, BMP, DIFF CBC #### [address] Serum or plasma anion gap de terminationOrdered By: Rita Corado on 11-07-2023 Anion gap [Moles/Vol] 10.1 mmol/L Normal 6.0-15.0 [facility] Comment on above: Performed By: #### H EPATIC, LIPASE, BMP, DIFF CBC #### [address] Serum or plasma non-glucuron idated bilirubin measurement (mass/volume)Ordered By: Rita Corado on 11-07-2023 Bilirubin.indirect [Mass/Vol] 0.4 mg/dL [facility] Sodium [Moles/volume] in Ser um or PlasmaOrdered By: Rita Corado on 11-07-2023 Sodium [Moles/Vol] 137 mmol/L Normal 136-145 [facility] Comment on above: Performed By: #### H EPATIC, LIPASE, BMP, DIFF CBC #### [address] Specific gravity Test strip (U) [Rel density]Ordered By: Rita Corado on 11-07-2023 Specific gravity (U) [Rel density] 1.023 1.001-1.03 0 [facility] Urea nitrogen [Mass/volume] in Serum or PlasmaOrdered By: Rita Corado on 11-07-2023 Urea nitrogen [Mass/Vol] 18 mg/dL Normal 7-25 [facility] Comment on above: Performed By: #### H EPATIC, LIPASE, BMP, DIFF CBC #### [address] Urinalysison 11-07-2023 Bilirubin,Urine Negative Normal Negative [facility] Comment on above: Order Comment: Name Collection Type:: Clean-Voided Midstream Performed By: #### U A #### [address] Glucose Ql (U) Normal Normal Normal [facility] Comment on above: Order Comment: Name Collection Type:: Clean-Voided Midstream Performed By: #### U A #### [place] [address] [place] Nitrite,Urine Negative Normal Negative [facility] Comment on above: Order Comment: Name Collection Type:: Clean-Voided Midstream Performed By: #### U A #### [address] Occult Blood,Urine Negative Normal Negative [facility] Comment on above: Order Comment: Name Collection Type:: Clean-Voided Midstream Result Comment: PERF ORMED BY: [place] [address] PATHOLOGIST FORGING MACHINE OPERATOR JORGE LUIS RUELAS M.D. Performed By: #### U A #### [place] [address] [place] Protein,Urine Negative Normal Negative [facility] Comment on above: Order Comment: Name Collection Type:: Clean-Voided Midstream Performed By: #### U A #### [address] Specificy [place],Urine 1.023 Normal 1.001-1.03 0 [facility] Comment on above: Order Comment: Name Collection Type:: Clean-Voided Midstream Performed By: #### U A #### [address] Urobilinogen,Urine Normal Normal Normal [facility] Comment on above: Order Comment: Name Collection Type:: Clean-Voided Midstream Performed By: #### U A #### [address] Urine appearanceOrdered By: Rita Corado on 11-07-2023 Appearance (U) Clear Normal Clear [facility] Comment on above: Order Comment: Name Collection Type:: Clean-Voided Midstream Performed By: #### U A #### [facility] [address] [place] [address] Urobilinogen Test strip (U) [Mass/Vol]Ordered By: Rita Corado on 11-07-2023 Urobilinogen (U) [Mass/Vol] Normal mg/dL Normal [facility] pH of Urine by Test stripOrd ered By: Rita Corado on 11-07-2023 pH (U) 6.0 [pH] Normal 5.0-9.0 [facility] Comment on above: Order Comment: Name Collection Type:: Clean-Voided Midstream Performed By: #### U A #### [facility] [address] [place], [place] [address] [facility] ECG 12 lead ECGon 11-06-2023 ECG 12 lead ECG [facility] [place] [address] Electrocardiograph Report Signed Patient: Angelika Muir MR#: [id number] : 1940 Acct:[id number] Age/Sex: 83 / F ADM Date: 11/06/23 Loc: ER Room: Type: [facility] ER Attending Dr: Ordering Provider: Rita Corado [...] By Rita Corado DO 0354 Normal [facility] COMPREHENSIVE METABOLIC PANE Iam 05-24-2023 Albumin [Mass/Vol] 3.6 g/dL Normal 3.2-5.3 [facility] Comment on above: Performed By: #### C MELO, 6-3 #### [facility] ([id number]) [address], [address] [place] [address] ALP [Catalytic activity/Vol] 103 U/L Normal 39-130 [facility] Comment on above: Performed By: #### Estefani ALEJO, 6-3 #### [facility] ([id number]) [address], [address] [place] [address] ALT [Catalytic activity/Vol] 10 U/L Normal 0-31 [facility] Comment on above: Performed By: #### Estefani ALEJO, 3015-3 #### [facility] ([id number]) [address], [address] [place] [address] Anion gap [Moles/Vol] 9 mmol/L Normal 5-15 [facility] Comment on above: Performed By: #### Estefani ALEJO, 3015-3 #### [facility] ([id number]) [address], [address] [place] [address] AST [Catalytic activity/Vol] 16 U/L Normal 0-41 [facility] Comment on above: Performed By: #### Estefani ALEJO, 3015-3 #### [facility] ([id number]) [address], [address] [place] [address] Bilirubin [Mass/Vol] 0.4 mg/dL Normal 0.3-1.2 [facility] Comment on above: Performed By: #### Estefani ALEJO, 3015-3 #### [facility] ([id number]) [address], [address] [place] [address] Calcium [Mass/Vol] 9.5 mg/dL Normal 8.5-10.5 [facility] Comment on above: Performed By: #### Estefani ALEJO, 3015-3 #### [facility] ([id number]) [address], [address] [place] [address] Chloride [Moles/Vol] 105 mmol/L Normal 98-109 [facility] Comment on above: Performed By: #### Estefani ALEJO, 6-3 #### [facility] ([id number]) [address], [address] [place] [address] CO2 [Moles/Vol] 31 mmol/L Normal 22-32 [facility] Comment on above: Performed By: #### Estefani ALEJO, 3015-3 #### [facility] ([id number]) [address], [address] [place] [address] Creatinine [Mass/Vol] 0.99 mg/dL Normal 0.40-1.00 [facility] Comment on above: Result Comment: METH OD TRACEABLE TO IDMS STANDARD Performed By: #### Estefani ALEJO, 3015-3 #### [facility] ([id number]) [address], [address] [place] [address] GFR/1.73 sq M.predicted among non-blacks MDRD (S/P/Bld) [Vol rate/Area] 56 mL/min/{1.73_m2} Low >59 [facility] Comment on above: Result Comment: Reported eGFR is based on the CKD-EPI 2020 equation that does not use a race coefficient. Performed By: #### Estefani ALEJO, 3015-3 #### [facility] ([id number]) [address], [address] [place] [address] Glucose [Mass/Vol] 103 mg/dL High 65-99 [facility] Comment on above: Performed By: #### Estefani ALEJO, 3015-3 #### [facility] ([id number]) [address], [address] [place] [address] Potassium [Moles/Vol] 3.9 mmol/L Normal 3.5-5.0 [facility] Comment on above: Performed By: #### Estefani ALEJO, 3015-3 #### [facility] ([id number]) [address], [address] [place] [address] Protein [Mass/Vol] 7.1 g/dL Normal 6.0-8.0 [facility] Comment on above: Performed By: #### Estefani ALEJO, 6-3 #### [facility] ([id number]) [address], [facility] [address] [place] [address] Sodium [Moles/Vol] 145 mmol/L Normal 134-146 [facility] Comment on above: Performed By: #### Estefani ALEJO, 6-3 #### [facility] ([id number]) [address], [facility] [address] [place] [address] Urea nitrogen [Mass/Vol] 18 mg/dL Normal 5-27 [facility] Comment on above: Performed By: #### Estefani ALEJO, 6-3 #### [facility] ([id number]) [address], [address] [place] [address] HGB A1C (GLYCO-HGB)on 2023 Glucose [Mass/Vol] 126 mg/dL Normal [facility] Comment on above: Performed By: #### Estefani ALEJO, 6-3 #### [facility] ([id number]) [address] [address] [place] [address] HbA1c (Bld) [Mass fraction] 6.0 % High 4.4-5.6 [facility] Comment on above: Result Comment: NOTE ADA Guidelines Result HgbA1c Normal : less than 5.7 % Prediabetes : 5.7 % to 6.4 % Diabetes : > 6.4 % Use with caution in patients with abnormal hemoglobin variants as the half-life of red blood cells and in vivo glycation rates are affected. Performed By: #### Estefani ALEJO, 6-3 #### [facility] ([id number]) [address], [address] [place] [address] TSH Qnon 05-24-2023 TSH 2.13 uIU/mL Normal 0.49-4.67 [facility] Comment on above: Performed By: #### C , 3016-3 #### [facility] ([id number]) [address], [address] [place] [address] CULTURE URINEon 05-28-2022 CULTURE URINE Isolate 1 [...] F Trimethoprim/Sulfamethoxazol e <=20 S F Normal [facility] Comment on above: Performed By: #### U ACSIND #### [facility] [address] [place] [address] Dr. Megan Caballero ALDOLASEon 05-27-2022 Aldolase 5.8 U/L Normal 3.3-10.3 [facility] Comment on above: Performed By: #### L ACT #### [facility] [address] [place] [address] Dr. Megan Caballero TAO DIRECTon 05-27-2022 TAO Direct Negative Normal Negative [facility] Comment on above: Performed By: #### L ACT #### [facility] [address] [place] [address] Dr. Megan Caballero RHEUMATOID FACTORon 05-28-19 23 RA Latex Turbid. 28.2 IU/mL Critically high <14.0 [facility] Comment on above: Performed By: #### L ACT #### [facility] [address] [place] [address] Dr. Megan Caballero CBC AUTO DIFFon 05-26-2022 BASO # 0.0 103/ul Normal 0.0-0.1 [facility] Comment on above: Performed By: #### L ACT #### [facility] [address] [address] [address] Megan Caballero Basophils/100 WBC (Bld) 0.1 % Critically low 0.2-2.0 [facility] Comment on above: Performed By: #### L ACT #### [facility] [address] [address] [address] Megan Caballero EO # 0.0 103/ul Normal 0.0-0.7 [facility] Comment on above: Performed By: #### L ACT #### [facility] [address] [place] [address] Dr. Megan Caballero Eosinophils/100 WBC (Bld) 0.0 % Critically low 0.9-7.0 [facility] Comment on above: Performed By: #### L ACT #### [facility] [address] [place] [address] Dr. Megan Caballero Erythrocyte distribution width (RBC) [Ratio] 13.4 % Normal 11.0-15.0 [facility] Comment on above: Performed By: #### L ACT #### [facility] [address] [place] [address] Dr. Megan Caballero Hematocrit (Bld) [Volume fraction] 33.4 % Critically low 36.0-48.0 [facility] Comment on above: Performed By: #### L ACT #### [facility] [address] [place] [address] Dr. Megan Caballero Hemoglobin (Bld) [Mass/Vol] 11.0 g/dL Critically low 12.0-16.0 [facility] Comment on above: Performed By: #### L ACT #### [facility] [address] [place] [address] Dr. Megan Caballero IG # 0.12 10e3/ul Critically high 0.00-0.03 [facility] Comment on above: Performed By: #### L ACT #### [facility] [address] [place] [address] Dr. Megan Caballero IG % 0.9 % Critically high 0.0-0.5 [facility] Comment on above: Performed By: #### L ACT #### [facility] [address] [place] [address] Dr. Megan Caballero LYMPH # 0.8 103/ul Critically low 1.2-3.8 [facility] Comment on above: Performed By: #### L ACT #### [facility] [address] [place] [address] Dr. Megan Caballero Lymphocytes/100 WBC (Bld) 5.7 % Critically low 20.5-60.0 [facility] Comment on above: Performed By: #### L ACT #### [facility] [address] [place] [address] Dr. Megan Caballero MANUAL DIFF REQ NO Normal [facility] Comment on above: Performed By: #### L ACT #### [facility] [address] [place] [address] Dr. Megan Caballero MCH (RBC) [Entitic mass] 29.2 pg Normal 26.7-34.0 [facility] Comment on above: Performed By: #### L ACT #### [facility] [address] [place] [address] Dr. Megan Caballero MCHC (RBC) [Mass/Vol] 32.9 g/dL Normal 29.9-35.2 [facility] Comment on above: Performed By: #### L ACT #### [facility] [address] [place] [address] Dr. Megan Caballero MCV (RBC) [Entitic vol] 88.6 fL Normal 81.0-99.0 [facility] Comment on above: Performed By: #### L ACT #### [facility] [address] [place] [address] Dr. Megan Caballero MONO # 1.1 103/ul Critically high 0.3-0.8 [facility] Comment on above: Performed By: #### L ACT #### [facility] [address] [place] [address] Dr. Megan Caballero Monocytes/100 WBC (Bld) 7.9 % Normal 1.7-12.0 [facility] Comment on above: Performed By: #### L ACT #### [facility] [address] [place] [address] Dr. Megan Caballero NEUT # 11.9 103/ul Critically high 1.4-6.5 [facility] Comment on above: Performed By: #### L ACT #### [facility] [address] [place] [address] Dr. Megan Caballero Neutrophils/100 WBC (Bld) 85.4 % Critically high 43.0-75.0 [facility] Comment on above: Performed By: #### L ACT #### [facility] [address] [place] [address] Dr. Megan Caballero Platelet mean volume (Bld) [Entitic vol] 10.2 fL Normal 9.5-13.5 [facility] Comment on above: Performed By: #### L ACT #### [facility] [address] [place] [address] Dr. Megan Caballero PLT 176 103/ul Normal 150-450 [facility] Comment on above: Performed By: #### L ACT #### [facility] [address] [place] [address] Dr. Megan Caballero RBC 3.77 106/ul Critically low 4.20-5.40 [facility] Comment on above: Performed By: #### L ACT #### [facility] [address] [place] [address] Dr. Megan Caballero WBC 13.9 103/ul Critically high 4.0-11.0 [facility] Comment on above: Performed By: #### L ACT #### [facility] [address] [place] [address] Dr. Megan Caballero CULTURE BLOODon 05-26-2022 Microscopic examination of blood, culture Culture Observations: NO GROWTH AT 5 DAYS. Normal [facility] Comment on above: Performed By: #### U ACSIND #### [facility] [address] [place] [address] Dr. Megan Caballero Microscopic examination of blood, culture Culture Observations: NO GROWTH AT 5 DAYS. Normal [facility] Comment on above: Performed By: #### U ACSIND #### [facility] [address] [place] [address] Dr. Megan Caballero LACTATE/LACTIC ACIDon 2022 Lactate [Moles/Vol] 1.1 mmol/L Normal 0.4-1.9 [facility] Comment on above: Performed By: #### L ACT #### [facility] [address] [place] [address] Dr. Megan Caballero LIVER PROFILEon 05-26-2022 Albumin [Mass/Vol] 2.7 g/dL Critically low 3.4-5.0 [facility] Comment on above: Performed By: #### L ACT #### [facility] [address] [place] [address] Dr. Megan Caballero Albumin/Globulin [Mass ratio] 0.6 {ratio} Normal [facility] Comment on above: Performed By: #### L ACT #### [facility] [address] [place] [address] Dr. Megan Caballero ALP [Catalytic activity/Vol] 107 U/L Normal 46-116 [facility] Comment on above: Performed By: #### L ACT #### [facility] [facility] [address] [place] [address] Dr. Megan Caballero ALT [Catalytic activity/Vol] 12 U/L Critically low 14-59 [facility] Comment on above: Performed By: #### L ACT #### [facility] [address] [place] [address] Dr. Megan Caballero AST [Catalytic activity/Vol] 16 U/L Normal 15-37 [facility] Comment on above: Performed By: #### L ACT #### [facility] [address] [place] [address] Dr. Megan Caballero BILI, CONJUGATED 0.1 mg/dL Normal 0.0-0.2 [facility] Comment on above: Performed By: #### L ACT #### [facility] [address] [place] [address] Dr. Megan Caballero Bilirubin [Mass/Vol] 0.6 mg/dL Normal 0.2-1.0 [facility] Comment on above: Performed By: #### L ACT #### [facility] [address] [place] [address] Dr. Megan Caballero Globulin (S) [Mass/Vol] 4.2 g/dL Normal [facility] Comment on above: Performed By: #### L ACT #### [facility] [address] [place] [address] Dr. Megan Caballero Protein [Mass/Vol] 6.9 g/dL Normal 6.4-8.2 [facility] Comment on above: Performed By: #### L ACT #### [facility] [address] [place] [address] Dr. Megan Caballero MAGNESIUMon 05-26-2022 Magnesium [Mass/Vol] 1.9 mg/dL Normal 1.8-2.4 [facility] Comment on above: Performed By: #### M G #### [facility] [address] [place] [address] Dr. Megan Caballero NM BONE SC WH BODYon 023 NM BONE SC WH BODY EXAMINATION: NM BONE SC BODY HISTORY: Pain ; right hip pain, [...] IHSAN PEDROZA Date: 2022-05-26 15:25 Normal [facility] PROF 14(COMP METB)on 023 Albumin [Mass/Vol] 2.4 g/dL Critically low 3.4-5.0 Th e [facility] Comment on above: Performed By: #### L ACT #### [facility] [address] [place] [address] Dr. Megan Caballero Albumin/Globulin [Mass ratio] 0.6 {ratio} Normal [facility] Comment on above: Performed By: #### L ACT #### [facility] [address] [address] [address] Megan Caballero ALP [Catalytic activity/Vol] 92 U/L Normal 46-116 [facility] Comment on above: Performed By: #### L ACT #### [facility] [address] [address] [address] Megan Caballero ALT [Catalytic activity/Vol] 10 U/L Critically low 14-59 [facility] Comment on above: Performed By: #### L ACT #### [facility] [address] [address] [address] Megan Caballero Anion gap [Moles/Vol] 10.3 mmol/L Normal [facility] Comment on above: Performed By: #### L ACT #### [facility] [address] [place] [address] Dr. Megan Caballero AST [Catalytic activity/Vol] 14 U/L Critically low 15-37 [facility] Comment on above: Performed By: #### L ACT #### [facility] [address] [address] [address] Megan Caballero Bilirubin [Mass/Vol] 0.5 mg/dL Normal 0.2-1.0 [facility] Comment on above: Performed By: #### L ACT #### [facility] [address] [address] [address] Megan Caballero Calcium [Mass/Vol] 8.2 mg/dL Critically low 8.5-10.1 [facility] Comment on above: Performed By: #### L ACT #### [facility] [address] [address] [address] Megan Caballero Chloride [Moles/Vol] 104 mmol/L Normal 98-107 [facility] Comment on above: Performed By: #### L ACT #### [facility] [address] [address] [address] Megan Caballero CO2 [Moles/Vol] 28.2 mmol/L Normal 21.0-32.0 [facility] Comment on above: Performed By: #### L ACT #### [facility] [address] [address] [address] Megan Caballero Creatinine [Mass/Vol] 1.05 mg/dL Critically high 0.55-1.02 [facility] Comment on above: Performed By: #### L ACT #### [facility] [address] [address] [address] Megan Caballero EGFR-AF MARTINIQUAIS >60 Normal >=60 [facility] Comment on above: Performed By: #### L ACT #### [facility] [address] [address] [address] Megan Caballero EGFR-NON AF MARTINIQUAIS 50 mL/min/1.73m2 Critically low >=60 [facility] Comment on above: Performed By: #### L ACT #### [facility] [address] [address] [address] Megan Caballero Globulin (S) [Mass/Vol] 3.7 g/dL Normal [facility] Comment on above: Performed By: #### L ACT #### [facility] [address] [address] [address] Megan Caballero Glucose [Mass/Vol] 116 mg/dL Critically high 74-[address] [facility] Comment on above: Performed By: #### L ACT #### [facility] [address] [address] [address] Megan Caballero Potassium [Moles/Vol] 3.5 mmol/L Normal 3.5-5.1 [facility] Comment on above: Performed By: #### L ACT #### [facility] [address] [address] [address] Megan Caballero Protein [Mass/Vol] 6.1 g/dL Critically low 6.4-8.2 Th [facility] Comment on above: Performed By: #### L ACT #### [facility] [address] [address] [address] Megan Caballero Sodium [Moles/Vol] 139 mmol/L Normal 136-145 [facility] Comment on above: Performed By: #### L ACT #### [facility] [address] [place] [address] Dr. Megan Caballero Urea nitrogen [Mass/Vol] 25.0 mg/dL Critically high 7.0-18.0 [facility] Comment on above: Performed By: #### L ACT #### [facility] [address] [place] [address] Dr. Megan Caballero Urea nitrogen/Creatinine [Mass ratio] 23.8 mg/mg Normal [facility] Comment on above: Performed By: #### L ACT #### [facility] [address] [place] [address] Dr. Megan Caballero PTTon 05-26-2022 aPTT Coag (Bld) [Time] 31.1 s Normal 22.3-36.2 [facility] Comment on above: Performed By: #### P TT #### [facility] [address] [place] [address] Dr. Megan Caballero UA RANDOMon 05-26-2022 Bilirubin Ql (U) Negative Normal NEGATIVE [facility] Comment on above: Performed By: #### U A #### [facility] [address] [place] [address] Dr. Megan Caballero Clarity (U) CLEAR Normal CLEAR [facility] Comment on above: Performed By: #### U A #### [facility] [address] [place] [address] Dr. Megan Caballero Color (U) LT. YELLOW Normal YELLOW [facility] Comment on above: Performed By: #### U A #### [facility] [address] [place] [address] Dr. Megan Caballero Glucose Ql (U) Negative Normal NEGATIVE [facility] Comment on above: Performed By: #### U A #### [facility] [address] [place] [address] Dr. Megan Caballero Hemoglobin Ql (U) MODERATE Abnormal NEGATIVE [facility] Comment on above: Performed By: #### U A #### [facility] [address] [place] [address] Dr. Megan Caballero Ketones Ql (U) Negative Normal NEGATIVE [facility] Comment on above: Performed By: #### U A #### [facility] [address] [place] [address] Dr. Megan Caballero LEUKOCYTES TRACE Abnormal NEGATIVE [facility] Comment on above: Performed By: #### U A #### [facility] [address] [place] [address] Dr. Megan Caballero Nitrite Ql (U) Negative Normal NEGATIVE [facility] Comment on above: Performed By: #### U A #### [facility] [address] [place] [address] Dr. Megan Caballero pH (U) 6.0 [pH] Normal 5-9 [facility] Comment on above: Performed By: #### U A #### [facility] [address] [place] [address] Dr. Megan Caballero SPEC GRAVITY 1.015 Normal 1.005-<=1. 025 [facility] Comment on above: Performed By: #### U A #### [facility] [address] [place] [address] Dr. Megan Caballero UA PROTEIN 30 mg/dl Abnormal NEGATIVE/ TRACE [facility] Comment on above: Performed By: #### U A #### [facility] [address] [place] [address] Dr. Megan Caballero Urobilinogen Qn (U) 0.2 {Renu'U}/dL Normal 0.2 - 1. 0 [facility] Comment on above: Performed By: #### U A #### [facility] [address] [place] [address] Dr. Megan Caballero XR CHEST 1 Von [...] ALVINO BENITEZ Date: 2022-05-26 04:41 Normal [facility] CPKon 05-25-2022 CK [Catalytic activity/Vol] 73 U/L Normal 26-192 [facility] Comment on above: Performed By: #### U ACSIND #### [facility] [address] [place] [address] Dr. Megan Caballero CRPon 05-25-2022 CRP 11.9 mg/dL Critically high <=1.0 [facility] Comment on above: Performed By: #### C RP, URIC #### [facility] [address] [place] [address] Dr. Megan Caballero Covid-19 PCR ([facility])on SARS-CoV-2 (COVID-19) RNA YU+probe Ql (Unsp spec) Not detected Normal NOT DETECTED [facility] Comment on above: Result Comment: When [...] for this test is supported by the [place] of [employer] and Human Service's declaration that [...] used). Performed By: #### U ACSIND #### [facility] [address] [place] [address] Dr. Megan Caballero SED RATE WESTERGRENon 2022 SED RATE 55 mm/hr Critically high <=30 [facility] Comment on above: Performed By: #### S EDR #### [facility] [address] [place] [address] Dr. Megan Caballero TSHon 05-25-2022 TSH 0.533 uIU/mL Normal 0.358-3.74 0 [facility] Comment on above: Performed By: #### T SH #### [facility] [address] [place] [address] Dr. Megan Caballero UA (CLEAN/CATCH) HEAVY REPAIRER/MICRO I F IND.on 05-25-2022 Bilirubin Ql (U) Negative Normal NEGATIVE [facility] Comment on above: Performed By: #### U ACSIND #### [facility] [address] [place] [address] Dr. Megan Caballero Clarity (U) CLEAR Normal CLEAR [facility] Comment on above: Performed By: #### U ACSIND #### [facility] [address] [place] [address] Dr. Megan Caballero Color (U) LT. YELLOW Normal YELLOW [facility] Comment on above: Performed By: #### U ACSIND #### [facility] [address] [place] [address] Dr. Megan Caballero Glucose Ql (U) Negative Normal NEGATIVE [facility] Comment on above: Performed By: #### U ACSIND #### [facility] [address] [place] [address] Dr. Megan Caballero Hemoglobin Ql (U) TRACE-LYSED Abnormal NEGATIVE [facility] Comment on above: Performed By: #### U ACSIND #### [facility] [address] [place] [address] Dr. Megan Caballero Ketones Ql (U) Negative Normal NEGATIVE [facility] Comment on above: Performed By: #### U ACSIND #### [facility] [address] [place] [address] Dr. Megan Caballero LEUKOCYTES Negative Normal NEGATIVE [facility] Comment on above: Performed By: #### U ACSIND #### [facility] [address] [place] [address] Dr. Megan Caballero Nitrite Ql (U) Negative Normal NEGATIVE [facility] Comment on above: Performed By: #### U ACSIND #### [facility] [address] [place] [address] Dr. Megan Caballero pH (U) 6.5 [pH] Normal 5-9 [facility] Comment on above: Performed By: #### U ACSIND #### [facility] [address] [address] [address] Megan Caballero SPEC GRAVITY 1.020 Normal 1.005-<=1. 025 [facility] Comment on above: Performed By: #### U ACSIND #### [facility] [address] [place] [address] Dr. Megan Caballero UA PROTEIN Negative Normal NEGATIVE/ TRACE [facility] Comment on above: Performed By: #### U ACSIND #### [facility] [address] [place] [address] Dr. Megan Caballero UR MICRO IND NOT INDICATED Normal [facility] Comment on above: Performed By: #### U ACSIND #### [facility] [address] [place] [address] Dr. Megan Caballero Urobilinogen Qn (U) 0.2 {Renu'U}/dL Normal 0.2 - 1. 0 [facility] Comment on above: Performed By: #### U ACSIND #### [facility] [address] [place] [address] Dr. Megan Caballero URIC ACID SERUMon 05-25-2022 Urate [Mass/Vol] 4.3 mg/dL Normal 2.6-6.0 [facility] Comment on above: Performed By: #### C RP, URIC #### [facility] [address] [place] [address] Dr. Megan Caballero XR FEMUR RTon 05-25-2022 [...] femur fracture seen. Electronically authenticated by: JELANI ZAID Date: 2022-05-24 23:28 Normal [facility] CBC W MANUAL DIFFon 05-25-19 23 ATYPICAL LYMPH # Normal [facility] Comment on above: Performed By: #### L ACT #### [facility] [address] [place] [address] Dr. Megan Caballero ATYPICAL LYMPH % Normal [facility] Comment on above: Performed By: #### L ACT #### [facility] [address] [place] [address] Dr. Megan Caballero BAND # 0.0 103/ul Normal 0.0-0.3 [facility] Comment on above: Performed By: #### L ACT #### [facility] [address] [place] [address] Dr. Megan Caballero BAND % 0 % Normal 0-5 [facility] Comment on above: Performed By: #### L ACT #### [facility] [address] [place] [address] Dr. Megan Caballero BASOM # 0.00 103/ul Normal 0.00-0.10 [facility] Comment on above: Performed By: #### L ACT #### [facility] [address] [place] [address] Dr. Megan Caballero BASOM % 0.0 % Critically low 0.2-2.0 [facility] Comment on above: Performed By: #### L ACT #### [facility] [address] [place] [address] Dr. Megan Caballero BLAST # Normal [facility] Comment on above: Performed By: #### L ACT #### [facility] [address] [place] [address] Dr. Megan Caballero BLAST % Normal [facility] Comment on above: Performed By: #### L ACT #### [facility] [address] [place] [address] Dr. Megan Caballero CORRECTED WBC Normal 4.0-11.0 [facility] Comment on above: Performed By: #### L ACT #### [facility] [address] [place] [address] Dr. Megan Caballero EOS # 0.00 103/ul Normal 0.00-0.70 [facility] Comment on above: Performed By: #### L ACT #### [facility] [address] [place] [address] Dr. Megan Caballero EOS% 0.0 % Critically low 0.9-7.0 [facility] Comment on above: Performed By: #### L ACT #### [facility] [address] [place] [address] Dr. Megan Caballero HCT 37.2 % Normal 36.0-48.0 [facility] Comment on above: Performed By: #### L ACT #### [facility] [address] [place] [address] Dr. Megan Caballero HGB 12.2 g/dl Normal 12.0-16.0 [facility] Comment on above: Performed By: #### L ACT #### [facility] [address] [place] [address] Dr. Megan Caballero LYMPHM # 0.23 103/ul Critically low 1.20-3.80 [facility] Comment on above: Performed By: #### L ACT #### [facility] [address] [place] [address] Dr. Megan Caballero LYMPHM% 2.0 % Critically low 20.5-60.0 [facility] Comment on above: Performed By: #### L ACT #### [facility] [address] [place] [address] Dr. Megan Caballero MCH 28.6 pg Normal 26.7-34.0 [facility] Comment on above: Performed By: #### L ACT #### [facility] [address] [place] [address] Dr. Megan Caballero MCHC 32.8 g/dl Normal 29.9-35.2 [facility] Comment on above: Performed By: #### L ACT #### [facility] [address] [place] [address] Dr. Megan Caballero MCV 87.1 fL Normal 81.0-99.0 [facility] Comment on above: Performed By: #### L ACT #### [facility] [address] [address] [address] Megan Caballero METAMYELOCYTE # Normal [facility] Comment on above: Performed By: #### L ACT #### [facility] [address] [address] [address] Megan Caballero METAMYELOCYTE % Normal [facility] Comment on above: Performed By: #### L ACT #### [facility] [address] [address] [address] Megan Caballero MONOM# 0.23 103/ul Critically low 0.30-0.80 [facility] Comment on above: Performed By: #### L ACT #### [facility] [address] [place] [address] Dr. Megan Caballero MONOM% 2.0 % Normal 1.7-12.0 [facility] Comment on above: Performed By: #### L ACT #### [facility] [address] [place] [address] Dr. Megan Caballero MPV 9.5 fL Normal 9.5-13.5 [facility] Comment on above: Performed By: #### L ACT #### [facility] [address] [place] [address] Dr. Megan Caballero MYELOCYTE # Normal [facility] Comment on above: Performed By: #### L ACT #### [facility] [address] [place] [address] Dr. Megan Caballero MYELOCYTE % Normal [facility] Comment on above: Performed By: #### L ACT #### [facility] [address] [place] [address] Dr. Megan Caballero NRBC Normal [facility] Comment on above: Performed By: #### L ACT #### [facility] [address] [place] [address] Dr. Megan Caballero PLT 197 103/ul Normal 150-450 [facility] Comment on above: Performed By: #### L ACT #### [facility] [address] [place] [address] Dr. Megan Caballero RBC 4.27 106/ul Normal 4.20-5.40 [facility] Comment on above: Performed By: #### L ACT #### [facility] [address] [place] [address] Dr. Megan Caballero RDW 13.1 % Normal 11.0-15.0 [facility] Comment on above: Performed By: #### L ACT #### [facility] [address] [place] [address] Dr. Megan Caballero SEG # 10.85 103/ul Critically high 1.40-6.50 [facility] Comment on above: Performed By: #### L ACT #### [facility] [address] [place] [address] Dr. Megan Caballero SEG % 96.0 % Critically high 43.0-75.0 [facility] Comment on above: Performed By: #### L ACT #### [facility] [address] [place] [address] Dr. Megan Caballero WBC 11.3 103/ul Critically high 4.0-11.0 [facility] Comment on above: Performed By: #### L ACT #### [facility] [address] [place] [address] Dr. Megan Caballero CRPon 05-24-2022 CRP 1.7 mg/dL Critically high <=1.0 [facility] Comment on above: Performed By: #### L ACT #### [facility] [address] [place] [address] PELVIS WO CONon [...] of iterative reconstruction technique. FINDINGS: The initial screen printing equipment setter views demonstrate bilateral total hip prostheses. The [...] JELANI MAR Date: 2022-05-24 21:51 Normal [facility] PROF CHEM 8 (BAS METB)on Anion gap [Moles/Vol] 12.6 mmol/L Normal [facility] Comment on above: Performed By: #### L ACT #### [facility] [address] [place] [address] Dr. Megan Caballero Calcium [Mass/Vol] 8.6 mg/dL Normal 8.5-10.1 [facility] Comment on above: Performed By: #### L ACT #### [facility] [address] [address] [address] Megan Caballero Chloride [Moles/Vol] 102 mmol/L Normal 98-107 [facility] Comment on above: Performed By: #### L ACT #### [facility] [address] [address] [address] Megan Caballero CO2 [Moles/Vol] 28.6 mmol/L Normal 21.0-32.0 [facility] Comment on above: Performed By: #### L ACT #### [facility] [address] [address] [address] Megan Caballero Creatinine [Mass/Vol] 0.73 mg/dL Normal 0.55-1.02 [facility] Comment on above: Performed By: #### L ACT #### [facility] [address] [address] [address] Megan Caballero EGFR-AF MARTINIQUAIS >60 Normal >=60 [facility] Comment on above: Performed By: #### L ACT #### [facility] [address] [address] [address] Megan Caballero EGFR-NON AF MARTINIQUAIS >60 Normal >=60 [facility] Comment on above: Performed By: #### L ACT #### [facility] [address] [address] [address] Megan Caballero Glucose [Mass/Vol] 121 mg/dL Critically high 74-[address] [facility] Comment on above: Performed By: #### L ACT #### [facility] [address] [address] [address] Megan Caballero Potassium [Moles/Vol] 3.2 mmol/L Critically low 3.5-5.1 [facility] Comment on above: Performed By: #### L ACT #### [facility] [address] [place] [address] Dr. Megan Caballero Sodium [Moles/Vol] 140 mmol/L Normal 136-145 [facility] Comment on above: Performed By: #### L ACT #### [facility] [address] [address] [address] Megan Caballero Urea nitrogen [Mass/Vol] 15.0 mg/dL Normal 7.0-18.0 [facility] Comment on above: Performed By: #### L ACT #### [facility] [address] [place] [address] Dr. Megan Caballero Urea nitrogen/Creatinine [Mass ratio] 20.5 mg/mg Normal [facility] Comment on above: Performed By: #### L ACT #### [facility] [address] [address] [address] Megan Caballero SED RATE PERRYERGRENon 2022 SED RATE 54 mm/hr Critically high <=30 [facility] Comment on above: Performed By: #### S EDR #### [facility] [address] [place] [address] Dr. Megan Caballero CNOVon 05-30-2020 CNOV Office Visit (UROLAV ) ANGELIKA MUIR ([id number]) 1940 [place] [employer]* Date Time Provider Department 05/30/20 6:00 PM NEGRO POMPA During your visit today, we recorded the following information about you: Pulse Blood pressure Weight 101/minute 141/67 98.4 kg Negro Pompa MD 05/30/2020 6:55 PM Signed [facility] FEM[facility] [...] Via bladder scan. Referring Provider: NEGRO POMPA [[id number]] Allergies As of Date: 05/30/2020 Noted Allergy [...] Status:Closed by NEGRO POMPA MD on 05/30/20 [facility] CNCOon 05-28-2020 CNCO Letter Text Normal [facility] ANES POSTPROC EVALon 021 ANES POSTPROC EVAL HNO ID: [id number] Author: Ihsan Gamino Service: Anesthesiology Author Type: Anesthesiologist Type: Anesthesia Postprocedure Evaluation Filed: 05/01/2020 4:49 PM Note Text: POST ANESTHESIA EVALUATION NOTE : 1940 Procedure Summary Date: 05/01/20 Room / Location: [address] Anesthesia Start: 1504 Anesthesia Stop: 1620 [...] May 01, 2020 TIME: 4:49 PM CSN: [id number] [facility] ANES PRE-OPon 05-01-2020 ANES PRE-OP HNO ID: [id number] Author: Ihsan Gamino Service: Anesthesiology Author Type: [...] May 01, 2020 TIME: 3:53 PM CSN: [id number] Normal [facility] HISTORY PHYSICALon HISTORY PHYSICAL HNO ID: [id number] Author: Negro Pompa Service: Urology Author Type: [...] Pompa MD May 01, 2020 1:22 PM [facility] OPERATIVE NOon 05-01-2020 OPERATIVE NO HNO ID: [id number] Author: Negro Pompa Service: Urology Author Type: Physician Type: Operative Report Filed: 05/01/2020 5:00 PM Note Text: OPERATIVE/PROCEDURE REPORT LOG ID: [id number] SURGERY/PROCEDURE DATE: 05/01/2020 INCISION/PROCEDURE START TIME: 3:28 PM INCISION CLOSE/PROCEDURE END TIME: 4:05 PM SURGEON(S)/PROCEDURALIST(S) AND DEVELOPER ADVISOR(S): Surgeon(s) and Role: * Negro Pompa - [...] 2020 TIME: 4:45 PM PAGER/CONTACT #: Normal [facility] SURGICAL PATHOLOGYon 021 SURGICAL PATHOLOGY Specimen originated from [facility] Specimen #: [id number] Submitting Physician: NEGRO POMPA FINAL DIAGNOSIS Vaginal mesh/sling - Squamous mucosa and fibrotic soft tissue with foreign material consistent with mesh. AES/ka 05/06/2020 eBtte Mckeon M.D. (Electronic Signature) SPECIMEN SUBMITTED A: [...] cassette. DOUG/evens 05/02/2020 Gross examination performed at [facility], [address] [place] [address] Date of Report: 05/06/2020 Date of Procedure: 05/01/2020 Date of Receipt: 05/02/2020 Submitted by: NEGRO POMPA Location: [facility] Diagnostic interpretation performed at [facility], [address] [place] [address]. CLIA Number: [id number] [facility] HOSPon 04-19-2020 HOSP Patient:Nany Muir MRN: [...] notes entered within the past 30 days [facility] Provider Letteron 11-21-2019 Provider Letter (Inserted Image. Patricia ble to display) November 21, 2019 ANGELIKA MUIR [address] [place] [id number] ANGELIKA MUIR 1940 Dear Angelika, You missed [...] understanding. Sincerely, [facility]/Dr De La Cruz [facility] Ambulatory Clinical Summaryo n 10-27-2019 Ambulatory Clinical Summary {[id number]}CD:[id number] 68 [facility] Patient Educationon 10-24-19 20 Patient Education [...] bladder worse. Your healthcare provider or a oracle scm consultant can explain ways to change what you [...] Document Reviewed: 01/02/2010 ExitCare? Patient Information ?2013 [employer]. [facility] Urology Office/Clinic Noteon 10-24-2019 Urology [...] in 1 month. Ordered: PVR urine/bladder capacity/[place] 42579 Urnls Dip Stick Auto w/o Microscopy POC 79154 2. Other urethral stricture, female (N35.82: Other [...] Daily, # 30 tab(s), Refills(s) 1, [facility]acy: [facility], 170, cm, 10/24/19 14:15:00 EDT, Height/Length Measured, 100, kg, 10/24/19 14:15:00 EDT, Weight Measured I have reviewed the previous health record information and history for this patient from Dr. De La Cruz Follow-up With When Contact Information Jono Faust MD, Bandar Devine In 1 month [facility] [address], [place] [address]- Additional Instructions: w/ PVR Patient Education Overactive [...] Protein Urine Dipstick: Negative (10/24/19 14:03:00) Specific [place] Urine Dipstick: 1.025 (10/24/19 14:03:00) Urine Appearance Urine Dipstick: Clear (10/24/19 14:03:00) Urine Color Urine Dipstick: Yellow (10/24/19 14:03:00) Urobilinogen Urine Dipstick: Normal 0.2-1 EU/dl (10/24/19 14:03:00) pH Urine Dipstick: 5.5 (10/24/19 14:03:00) Diagnostic Results PVR was reviewed at 85 cc. Urinalysis shows no infection. Normal [facility] Comment on above: Result Comment: Elec tronically Signed By: Jono Faust MD, Bandar Devine\.br\Date and Time Signed: 10/24/19 14:59 EDT\.br\Electronically Co-Signed By: Lida Ybarra MA\.br\Date and Time Co-Signed: 10/24/19 14:56 EDT Ambulatory Clinical Summaryo n 08-24-2019 Ambulatory Clinical Summary {[id number]}CD:[id number] [address] [facility] Reminderson 04-24-2019 Reminders - From: Kristen Rivero To: EU - Clinical; Sent: 04/04/2019 15:20:13 EST Show up: 04/24/2019 07:00:00 EST Subject: Urodynamics Report Due Date/Time: 04/24/2019 07:00:00 EST Reminder/Recall Show Dr. De La Cruz results, patient may need scheduled for Cysto/TVT sling Test: Urodynamics Test being done 04/20/19 @ [facility] From: Fiil Morgan MA (EU - Clinical) To: Bandar De La Cruz Jr., MD; Sent: 04/24/2019 08:02:48 EST Show up: 04/24/2019 08:02:00 EST Subject: RE: Urodynamics Report Please review Urodynamics report. Per message, Pt may need scheduled for Cysto/ TVT Normal [facility] Coding Summary.on 04-21-2019 Coding Summary. CODING DATE: 020 FINAL [facility] STATUS: Home (Routine DC) PAYOR: Medicare [...] Garces Date Saved: 04/21/2019 01:56 pm Normal [facility] Patient Summaryon 02-02-2019 Patient Summary PATIENT DISCHARGE INSTRUCTIONS If you are having an emergency and are not able to reach your physician, CALL 911 or go to the nearest emergency room and take this document with you. [facility] 02/02/19 09:32 [address] [place]. [address] PATIENT INFORMATION -- Name: ANGELIKA MUIR [address]: [address] [place] [id number] Age: 78 Years Phone: [phone] : 1940 12:00 MRN: [id number] Sex: Female Race: White Ethnicity: Not Hispan/Lat Admitted From: Clinic or [facility] Medical Service: Orthopedic Surgery Nurse Unit/Bed: (CO) 2NAN 0219-01 Admit Date: 01/30/2019 05:59 PCP: Eduardo Rose MD PHYSICIANS INVOLVED WITH CARE Attending Physicians: Rancho SIEGEL , Amrik Sutton - Orthopaedic Surg Admitting Physician: Amrik Vickers MD - Orthopaedic Surg Primary Care Physician:Eduardo Rose MD,Internal Medicine, - Consults: Rosibel SIEGEL , Elbert Kim - [facility] FOLLOW-UP APPOINTMENTS: Provider: Specialty: Address: Date: Amrik Vickers MD Orthopaedic Surg [address] [facility] [facility] [address] (1) Six Weeks Comment: Call for an Appointment Provider: Specialty: Address: Date: Eduardo Rose MD Internal Medicine [address] [facility] [address] (1) Follow-up as needed Provider: Specialty: Address: Date: [phone] Follow-up as needed ALLERGIES: No Known Medication [...] doses are changed, or new medications (including qotg-vol-pjjptkn products) are added. Ask your doctor if [...] Decisions Type: Living Will, Medical Power of Preload Supervisor Copy of Advance Directive/Health Care Decisions on Chart: Patient/Family asked to provide copy SUICIDE HOTLINE: Your mental and emotional well-being are important. If you are in a mental health crisis, or having thoughts of suicide, please call the nationwide suicide hotline, anytime day or night, at 0-447-794-DSNW. Important information about accessing your health information through the [facility] patient portal If you initiated the self-registration process for AOTMP during your stay, please check your personal email for an invitation to enroll in [facility]OT[facility] and complete the steps outlined in the email. If you would prefer to enroll while in the hospital, ask a member of your care team. We would be happy to assist you. If you have already enrolled in AOTMP, go to [email or web address] to login and access your health information. Thank you for choosing [facility]. PATIENT EDUCATION Fall Prevention in the Home [...] wet floors. ???Place frequently used items in nfbr-sx-ljaxp places. ???If you need to reach for something above you, use a sturdy step stool that has a grab bar. ???Keep electrical cables out of the way. ???Do not use floor qatari or wax that makes floors slippery. If [...] include working with a physical therapist or life skills trainer to improve your strength, balance, and endurance. This information is not intended to replace advice given to you by your health care provider. Make sure you discuss any questions you have with your health care provider. Document Released: 02/26/2003 Document Revised: 07/23/2015 Document Reviewed: 04/12/2015 [employer] Interactive Patient Education ?2016 [employer]. Incentive Spirometer An incentive spirometer is a [...] 07/19/2007 Document Revised: 03/29/2015 Document Reviewed: 10/15/2014 Elsevier Interactive Patient Education ?2016 [employer] Pain Medicine Instructions HOW CAN PAIN [...] liver damage. Acetaminophen is found in many dxjy-gos-pvllmee (OTC) and prescription medicines. If you are [...] 06/14/2001 Document Revised: 07/23/2015 Document Reviewed: 01/10/2015 [employer] Interactive Patient Education ?2016 [employer] Preventing Constipation After Surgery Constipation is [...] a bowel movement. ???Having hard, dry, or crsejz-unyg-fqbhww stools. ???Feeling full or bloated. ???Having pain in the lower abdomen. ???Not feeling relief after having a bowel movement. HOME CARE INSTRUCTIONS Diet ???Eat foods that have a lot of fiber. These include fruits, vegetables, whole grains, and beans. Limit foods high in fat and processed sugars. These include romanian fries, hamburgers, cookies, and candy. ???Take a [...] softener, laxative, or fiber supplement. ???Only take ykzm-qap-phqbzdj or prescription medicines as directed by your [...] 07/03/2013 Document Revised: 03/29/2015 Document Reviewed: 07/03/2013 Elsevier Interactive Patient Education ?2016 [employer] Venous Thromboembolism, Prevention A venous thromboembolism [...] Reviewed: 07/03/2015 Elsevier Interactive Patient Education ?2016 [employer] VIRUSES OR BACTERIA: WHAT'S GOT YOU [...] to Patient Clinician Signature __ Date/Time Normal [facility] Basic Metabolic Panelon 01-20 Calcium [Mass/Vol] 8.4 mg/dL Low 8.5-10.6 [facility] Chloride [Moles/Vol] 105 mmol/L Normal 98-[address] [facility] CO2 [Moles/Vol] 32 mmol/L Normal 21-32 [facility] Creatinine [Mass/Vol] 0.77 mg/dL Normal 0.55-1.[address] [facility] Glucose [Mass/Vol] 108 mg/dL High 70-99 [facility] Potassium [Moles/Vol] 4.1 mmol/L Normal 3.5-5.[address] [facility] Sodium [Moles/Vol] 141 mmol/L Normal 136-145 [facility] Urea nitrogen (BldV) [Mass/Vol] 20 mg/dL High 7.0-18.0 [facility] Urea nitrogen/Creatinine [Mass ratio] 26 mg/mg Normal [facility] Basic Metabolic Panelon 01-20 Calcium [Mass/Vol] 8.4 mg/dL Low 8.5-10.6 [facility] Chloride [Moles/Vol] 105 mmol/L Normal 98-[address] [facility] CO2 [Moles/Vol] 31 mmol/L Normal 21-32 [facility] Creatinine [Mass/Vol] 0.86 mg/dL Normal 0.55-1.[address] [facility] Glucose [Mass/Vol] 101 mg/dL High 70-99 [facility] Potassium [Moles/Vol] 4.1 mmol/L Normal 3.5-5.[address] [facility] Sodium [Moles/Vol] 140 mmol/L Normal 136-145 [facility] Urea nitrogen (BldV) [Mass/Vol] 21 mg/dL High 7.0-18.0 [facility] Urea nitrogen/Creatinine [Mass ratio] 24 mg/mg Normal [facility] Anesthesia Recordon 01-31-20 Anesthesia Record Patient: TRAN MUIR MRN: [id number] Age: 78 years Sex: Female : 1940 Associated Diagnoses: None Author: Nadine Barrera MD Procedure Time Out [place] Protocol: patient identity verified, site verified, side verified, procedure to be done verified, patient position verified. REGIONAL ANESTHESIA PROCEDURE Procedure date and begin time: See nurses notes. Procedure date and end time: See nurses notes. Performed by: Nadine Barrera MD. Assisted by: no medical claims assistant. Informed consent: signed by patient. Technique: [...] Diagnosis: M25.561 M17.11 Knee Pain . Normal [facility] Anesthesia Record Patient: TRAN MUIR MRN: ([id number] Age: 78 years Sex: Female : 1940 Associated Diagnoses: None Author: Nadine Barrera MD Procedure Time Out [place] Protocol: patient identity verified, site verified, side verified, procedure to be done verified, patient position verified. REGIONAL ANESTHESIA PROCEDURE Procedure date and begin time: See nurses notes. Procedure date and end time: See nurses notes. Performed by: Nadine Barrera MD. Assisted by: no medical claims assistant. Informed consent: signed by patient. Technique: [...] M25.561 M17.11 Knee Pain OA . Normal [facility] Basic Metabolic Panelon 01-20 Calcium [Mass/Vol] 9.0 mg/dL Normal 8.5-10.6 [facility] Chloride [Moles/Vol] 106 mmol/L Normal 98-[address] [facility] CO2 [Moles/Vol] 29 mmol/L Normal 21-32 [facility] Creatinine [Mass/Vol] 0.84 mg/dL Normal 0.55-1.[address] [facility] Glucose [Mass/Vol] 105 mg/dL High 70-99 [facility] Potassium [Moles/Vol] 3.7 mmol/L Normal 3.5-5.[address] [facility] Sodium [Moles/Vol] 143 mmol/L Normal 136-145 [facility] Urea nitrogen (BldV) [Mass/Vol] 23 mg/dL High 7.0-18.0 [facility] Urea nitrogen/Creatinine [Mass ratio] 27 mg/mg Normal [facility] OR Nursingon 01-30-2019 OR Nursing Normal [facility] PACU I Nursingon 01-30-2019 PACU I Nursing CO NA PACU I Nursing Record Summary Primary Physician: Amrik Vickers MD Finalized Date/Time: 01/30/19 12:48:37 Pt. Name: ANGELIKA MUIR/Sex: 1940 Female Med Rec #: [id number] Physician: Amrik Vickers MD Financial #: [id number] Pt. Type: I Room/Bed: 9/ Admit/Disch: 01/30/19 05:59:00 - Institution: CO NA [...] By: Ana Rosas RN 01/30/19 12:48 Normal [facility] PreOp Nursingon 01-30-2019 PreOp Nursing CO NA PreOp Nursing Record Summary Primary Physician: Amrik Vickers MD Finalized Date/Time: 01/30/19 09:02:48 Pt. Name: ANGELIKA MUIR/Sex: 1940 Female Med Rec #: [id number] Physician: Amrik Vickers MD Financial #: [id number] Pt. Type: I Room/Bed: / Admit/Disch: 01/30/19 05:59:00 - Institution: CO NA OR PreOp Case Times Entry 1 PreOp Case Times In Room Time 01/30/19 06:51:00 Out Room Time 01/30/19 08:32:00 Last Modified By: Chelsy Batista RN 01/30/19 09:02:45 CO NA OR PreOp Case Attendees Entry 1 Case Attendee Alexandra EUCEDA , Evaristo Pena Performed RN Last Modified By: Evaristo Morris RN 01/30/19 07:11:35 Finalized By: Chelsy Batista RN Document Signatures Signed By: Chelsy Batista RN 01/30/19 09:02 Normal [facility] Basic Metabolic Panelon 12-22 Calcium [Mass/Vol] 9.0 mg/dL Normal 8.5-10.6 [facility] Chloride [Moles/Vol] 103 mmol/L Normal 98-[address] [facility] CO2 [Moles/Vol] 31 mmol/L Normal 21-32 [facility] Creatinine [Mass/Vol] 0.78 mg/dL Normal 0.55-1.[address] [facility] Glucose [Mass/Vol] 90 mg/dL Normal 70-99 [facility] Potassium [Moles/Vol] 4.1 mmol/L Normal 3.5-5.[address] [facility] Sodium [Moles/Vol] 142 mmol/L Normal 136-145 [facility] Urea nitrogen (BldV) [Mass/Vol] 19 mg/dL High 7.0-18.0 [facility] Urea nitrogen/Creatinine [Mass ratio] 24 mg/mg Normal [facility] CBC with Differentialon 12-22 Basophils (Bld) [#/Vol] 0.0 thou/mcL Normal 0.0-0.2 [facility] Basophils/100 WBC (Bld) 0.8 % Normal 0-3 [facility] Differential cell count method Nom (Bld) AUTOMATED DIFFERENTIAL Normal [facility] Eosinophils (Bld) [#/Vol] 0.1 thou/mcL Normal 0.0-0.4 [facility] Eosinophils/100 WBC (Bld) 2.0 % Normal 0-7 [facility] Erythrocyte distribution width (RBC) [Entitic vol] 14.4 % Normal 11.7-15.0 [facility] Hematocrit (Bld) [Volume fraction] 36.7 % Normal 34.0-50.0 [facility] Hemoglobin (Bld) [Mass/Vol] 12.1 g/dL Normal 11.5-17.0 [facility] Lymphocytes (Bld) [#/Vol] 1.3 thou/mcL Normal 0.7-4.5 [facility] Lymphocytes/100 WBC (Bld) 26.0 % Normal 14-46 [facility] MCH (RBC) [Entitic mass] 29.2 Picograms Normal 27.0-34.0 [facility] MCHC (RBC) [Mass/Vol] 32.9 g/dL Normal 32.0-36.0 Mariama nt [facility] MCV (RBC) [Entitic vol] 88.7 fL Normal 80-98 [facility] Monocytes (Bld) [#/Vol] 0.4 thou/mcL Normal 0.1-1.0 [facility] Monocytes/100 WBC (Bld) 8.5 % Normal 4-13 [facility] Neutrophils (Bld) [#/Vol] 3.1 thou/mcL Normal 1.5-7.8 [facility] Neutrophils/100 WBC (Bld) 62.7 % Normal 40-74 [facility] Platelet mean volume (Bld) [Entitic vol] 8.4 fL Normal 7.5-11.2 [facility] Platelets (Bld) [#/Vol] 214 thou/mcL Normal 140-415 [facility] RBC (Bld) [#/Vol] 4.13 x(10)6/mcL Normal 3.80-5.60 Mo [facility] WBC (Bld) [#/Vol] 5.0 thou/mcL Normal 4.0-10.5 [facility] Culture Methicillin Resistan t Staph aureuson 01-19-2019 MRSA isol Org specific cx Ql (Unsp spec) [facility] Microbiology PROCEDURE: Culture Methicillin Resistant Staph aureus SOURCE: Nasal Swab BODY SITE: COLLECTED DATE/TIME: 01/19/2019 15:10 EDT RECEIVED DATE/TIME: 01/19/2019 15:10 EDT START DATE/TIME: 01/19/2019 15:10 EDT FREE TEXT SOURCE: NASAL SWAB-. INTERFACED REPORTS Final Report [] Verified Date/Time/Personnel: 01/20/2019 21:24 EDT CONTRIBUTOR_SYSTEM, CO_PN *MRSA SCREEN* NEGATIVE FOR METHICILLIN(OXACILLIN) RESISTANT STAPHYLOCOCCUS AUREUS. Normal [facility] Comment on above: Performed By: #### 1 3317-3 #### [facility] [address] [place], [place] Partial Thromboplastin Time (aPTT)on 01-19-2019 aPTT Coag (PPP) [Time] 31 Sec Normal 23.2-34.6 [facility] Prothrombin Timeon 9 INR Coag (Bld) [Relative time] 1.0 {INR} Normal [facility] Comment on above: Result Comment: KARLENE NG THE INDUCTION PHASE OF ORAL ANTICOAGULATION, THE INR MAY NOT REFLECT THE ANTICOAGULANT STATUS OF THE PATIENT. THERAPEUTIC RANGES FOR INR'S ARE: MOST CLINICAL SITUATIONS: INR 2.0-3.0 MECHANICAL PROSTHETIC VALVES: INR 2.5-3.5 CRITICAL: INR 5.0 PT Coag (PPP) [Time] 12.6 Sec Normal 11.9-14.6 [facility] t [facility] XR C-Spine 4-5 Viewson 01-19 XR [...] disease, notably advanced at C5-C6 and C6-C7. [facility] thanks you for the opportunity to care for your patient. Workstation ID: [id number] - [id number] FINAL REPORT Dictated By: Fritz Styles MD 01/19/2019 21:13 Assigned Physician: Fritz Styles MD Reviewed and Electronically Signed By: Fritz Styles MD 01/19/2019 21:17 Transcribed by: JESSIE 01/19/2019 21:13 Technologist: KAYLIN Normal [facility] Culture Anaerobicon 10-19-19 19 Bacteria identified Anaer cx Nom (Unsp spec) [facility] Microbiology PROCEDURE: Culture Anaerobic SOURCE: Joint [...] 20:16 EDT CONTRIBUTOR_SYSTEM, CO_PN CULTURE IN PROGRESS [facility] Comment on above: Performed By: #### 6 35-3 #### [address] [place], [place] Culture Body Fluid + Suscept ibility + Smear Directon 10-18-2018 Bacteria identified Sterile body fluid culture Nom (Unsp spec) [facility] Microbiology PROCEDURE: Culture Body Fluid + [...] NO EPITHELIALS SEEN, NO ORGANISMS SEEN Normal [facility] Comment on above: Performed By: #### 6 36-1 #### [address] [place], [place] Culture Funguson 10-18-2018 Fungus identified Cx Nom (Unsp spec) [facility] Microbiology PROCEDURE: Culture Fungus SOURCE: Joint [...] WILL BE HELD FOR 1-4 WEEKS Normal [facility] Comment on above: Performed By: #### 5 80-1 #### [facility] [address] [place], [place] XR SHOULDER LEFT MIN 2 VIEWS [...] I have reviewed andapproved this report. Normal [facility] Cardiovascular Lab Reporton 11-07-2016 Cardiovascular Lab Report [facility] Patient Name: Wood Angelika [facility] MR #: [id number] Physician: Ankur Riojas of [facility] Service Date: 11/06/2016Division of Birthdate: 1940Cardiology Room #: CCAdult CardiovascularServicesUnMorgan [id number] [place], [place] [address] Fax Cardiovascular Laboratory ReportINDICATIONS: Ms. 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 Isaw her in our [place] office. She has had a complete evaluation [...] 11/09/2016 12:02 P Ankur France M.D.Date Dict: 11/06/201603:29 P/Ankur France M.D.Date Trans: 11/07/2016 06:05 A/[id number]: Eduardo Rose M.D. [address] [place] [address] [facility] Vital Signs Date Time Vital Sign Value Performing Clinician Facility 03-24-2024 10:38-0500 Body height 162.6 cm [employer] Work Phone: [facility] 03-24-2024 10:38-0500 Body mass index (BMI) [Ratio] 29.01 kg/m2 [facility] 03-24-2024 10:38-0500 Body temperature 98.2 [degF] [facility] 03-24-2024 10:38-0500 Body weight 76.66 kg [facility] 03-24-2024 10:38-0500 Diastolic blood pressure 56 mm[Hg] Pharmly DO Work Phone: [facility] 03-24-2024 10:38-0500 Heart rate 96 /min [facility] Work Phone: [facility] 03-24-2024 10:38-0500 Respiratory rate 20 /min [employer] Work Phone: [facility] 03-24-2024 10:38-0500 SaO2% (BldA) [Mass fraction] 100 % Otis Furlong DO Work Phone: [facility] 03-24-2024 10:38-0500 Systolic blood pressure 120 mm[Hg] Otis Chaves DO Work Phone: [facility] 11-07-2023 02:09-0400 Diastolic blood pressure 58 mm[Hg] DO Yolanda Schwerer Work Phone: [facility] 11-07-2023 02:09-0400 Heart rate 83 /min DO Yolanda Schwerer Work Phone: [facility] 11-07-2023 02:09-0400 Respiratory rate 18 /min DO Yolanda Schwerer Work Phone: [facility] 11-07-2023 02:09-0400 SaO2% (BldA) [Mass fraction] 98 % DO Yolanda Schwerer Work Phone: [facility] 11-07-2023 02:09-0400 Systolic blood pressure 122 mm[Hg] DO Yolanda Schwerer Work Phone: [facility] 11-06-2023 22:54-0400 Body height 170.18 cm DO Yolanda Schwerer Work Phone: [facility] 11-06-2023 22:54-0400 Body temperature 98 [degF] DO Yolanda Schwerer Work Phone: [facility] 11-06-2023 22:54-0400 Body weight 58.96 kg DO Yolanda Schwerer Work Phone: [facility] 03-24-2021 15:45-0500 Body height 166.37 cm Yolanda Schwerer Other [employer] Other 03-24-2021 15:45-0500 Body mass index (BMI) [Ratio] 35.23 kg/m2 Yolanda Schwerer Other [employer] Other 03-24-2021 15:45-0500 Body temperature 99.4 [degF] Yolanda Schwerer Other [employer] Other 03-24-2021 15:45-0500 Body weight 97.52 kg Yolanda Schwerer Other [employer] Other 03-24-2021 15:45-0500 Diastolic blood pressure 78 mm[Hg] Yolanda Schwerer Other [employer] Other 03-24-2021 15:45-0500 SaO2% (BldA) [Mass fraction] 96 % Yolanda Schwerer Other [employer] Other 03-24-2021 15:45-0500 Systolic blood pressure 132 mm[Hg] Yolanda Schwerer Other [employer] Other Encounters Encounter Date Encounter Type Care Provider Facility Start: 05-22-2024 End: 05-22-2024 Orders Only Otispk Martinezalex DO [facility] Comment on above: Lumbar spondylosis ( Primary Dx); Spinal stenosis of lumbar region, unspecified whether neurogenic claudication present Start: 04-03-2024 End: 04-03-2024 Refill 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 [facility] Start: 03-24-2024 End: 03-24-2024 Office outpatient visit 25 minutes Otis Chaves DO [facility] Comment on above: Anxiety (Primary Dx) ; Mild late onset Alzheimer's dementia without behavioral disturbance, psychotic disturbance, mood disturbance, or anxiety (CMS-HCC); Supraventricular tachycardia (CMS-HCC); PMR (polymyalgia rheumatica) ([facility]); Mixed stress and urge urinary incontinence Start: 03-24-2024 End: 03-24-2024 ambulatory [facility] Start: 12-09-2023 End: 12-09-2023 ambulatory [facility] Start: 12-06-2023 End: 12-06-2023 ambulatory Tony Holguin MD Facility: [facility] Start: 11-06-2023 End: 11-07-2023 Emergency department patient visit DO Yolanda Calvo Work Phone: [facility] Work Phone: Start: 10-26-2023 End: 10-26-2023 ambulatory [facility] Start: 10-20-2023 End: 10-20-[address] [facility] Not Available Start: 10-04-2023 End: 10-04-2023 ambulatory [facility] Not Available Start: 08-09-2023 End: 08-09-2023 ambulatory Tony Holguin MD Facility[facility] Start: 07-29-2023 End: 07-29-2023 ambulatory [facility] Start: 07-26-2023 End: 07-26-2023 ambulatory Tony Holguin MD Facility:[facility] Start: 07-12-2023 End: 07-12-2023 ambulatory Tony Holguin MD Facility: [facility] Start: 06-24-2023 End: 06-24-2023 ambulatory [facility] Start: 05-25-2023 ambulatory [facility] Start: 05-25-2023 End: 05-25-2023 ambulatory [facility] Start: 05-24-2023 End: 05-24-2023 ambulatory [facility] Start: 05-24-2023 End: 05-24-2023 ambulatory Tony Holguin MD Facility:[facility] [place] Start: 05-10-2023 End: 05-10-2023 ambulatory Tony Holguin MD Facility:[facility] Start: 04-19-2023 End: 04-19-2023 ambulatory Tony Holguin MD Facility:[facility] Start: 04-02-2023 End: 04-02-2023 ambulatory [facility] Start: 05-25-2022 End: 05-26-[address] SARIKA MUHAMMAD . Facility:[facility] Start: 07-15-2021 End: 07-15-2021 ambulatory Yolanda Schwerer Other [employer] Other Start: 07-15-2021 Telephone encounter Yolanda Schwerer [facility] [place] Start: 04-28-2021 End: 04-28-2021 ambulatory Yolanda Schwerer Other [employer] Other Start: 04-28-2021 Telephone encounter Yolanda Schwerer [facility] [place] Start: 04-03-2021 End: 04-03-2021 ambulatory Yolanda Schwerer Other [employer] Other Start: 04-03-2021 Telephone encounter Yolanda Schwerer [facility] [place] Start: 03-24-2021 End: 03-24-2021 ambulatory Yolanda Schwerer Other [employer] Other Start: 03-24-2021 Office outpatient vi sit 15 minutes Yolanda Schwerer [facility] [place] Start: 03-20-2021 End: 03-20-2021 ambulatory Yolanda Schwerer Other [employer] Other Start: 03-20-2021 Telephone encounter Yolanda Schwerer [facility] Start: 03-03-2021 End: 03-03-2021 ambulatory Yolanda Calvo Other [employer] Other Start: 03-03-2021 Telephone encounter Yolanda Calvo [facility] [place] Start: 07-21-2017 Ambulatory JOSE LUIS LIZAMA [facility] Start: 11-06-2016 End: 11-07-2016 Ambulatory ANKUR Lesley [facility] Facility:[facility] Procedures Date Procedure Procedure Detail Performing Clinician Start: 03-24-2024 Adult depression screening assessment Otis Chaves DO Work Phone: Start: 06-18-2015 H/O: artificial joint Status p ost total shoulder arthroplasty Otis Chaves DO Work Phone: Plan of Treatment Date Care Activity Detail Author Start: 03-24-2025 Depression Screening Depression Scre ening [facility] Start: 03-24-2025 Fall Risk Screening Fall Risk Screen ing [facility] Start: 12-08-2024 Tobacco Screening Tobacco Screening [facility] Start: 09-29-2024 End: 09-29-2024 Patient encounter procedure 09/29/2024 10:30 AM EDT Office Visit [facility] [address] [place] [address] Otis Chaves DO [address], [facility] [place] [address] [facility] Start: 06-23-2024 Medicare Annual Well ness Visit Medicare Annual Wellness Visit [facility] Start: 11-21-2023 Influenza vaccination Influenza Vacc ine [facility] Start: 11-07-2023 Computed tomography of abdomen and pelvis with contrast CT abdomen pelvis w con [facility] Start: 11-07-2023 CT Abdomen and Pelvi s W contrast IV [facility] Start: 1959 DTaP,Tdap and Td Vaccines (1 - Tdap) DTaP,Tdap and Td Vaccines (1 - Tdap) [facility] Patient Education Abdominal Pain , Adult ED [facility] Work Phone: Patient referral [facility] Work Phone: Immunizations Immunization Date Immunization Notes Care Provider Chava lan 05-25-2022 COVID-19, mRNA, LNP- S, PF, 100mcg/0.5mL Dose Otis Furlong DO Work Phone: [facility] 10-24-2021 zoster vaccine recombinant Otis Furlong DO Work Phone: [facility] 07-22-2021 zoster vaccine recombinant Oits Furlong DO Work Phone: [facility] 05-09-2021 Influenza, injectabl e, Madin Hulbert Canine Kidney, preservative free, quadrivalent Otis Furlong DO Work Phone: [facility] 05-09-2021 influenza virus vacc ine, unspecified formulation Otis Furlong DO Work Phone: [facility] 07-05-2020 COVID-19 Vaccine Pfi zer - Documentation Purposes Only Yolanda Schwerer Other [facility] 06-07-2020 COVID-19 Vaccine Pfi zer - Documentation Purposes Only Yolanda Schwerer Other [facility] 05-02-2018 influenza, seasonal, injectable, preservative free Otis Furlong DO Work Phone: [facility] 04-30-2018 zoster vaccine recombinant Yolanda Schwerer Other [facility] 01-06-2018 influenza, high dose seasonal, preservative-free Otis Furlong DO Work Phone: [facility] 01-06-2018 zoster vaccine recombinant Yolanda Schwerer Other [facility] 03-19-2017 pneumococcal conjuga te vaccine, 13 valent Yolanda Schwerer Other [facility] 02-25-2017 influenza, high dose seasonal, preservative-free Otis Chaves DO Work Phone: [employer] 04-27-2016 pneumococcal polysaccharide vaccine, 23 valent Yolanda Schwerer Other [facility] 12-18-2014 pneumococcal polysaccharide vaccine, 23 valent Yolanda Schwerer Other [facility] 12-18-2014 zoster vaccine, live Yolanda Schwerer Other [facility] 02-11-2009 zoster vaccine, live Yolanda Schwerer Other [facility] Payers Date Payer Category Payer Self-pay [id number] 2023 Unknown 2015 Commercial Indemnity [facility] Member Subscriber Plan / Payer (Effective 2015-Present) Name: Angelika Muir Relation to Subscriber: Self Name: Angelika Muir Payer ID: Not on file Type: Not on file Address: [place] [id number] 2003 Medicare [id number] 2003 Medicare 2003 Medicare [id number] 1959 Medicare [id number] 1959 Unknown [id number] 1938 Unknown [id number] 2.16.840.1.644075.3.579.2.5 93 1938 Unknown [id number] 2.16.840.1.267939.3.579.2.1 286 1938 Unknown [id number] 2.16.840.1.513548.3.579.2.1 259 1938 Unknown [id number] 2.16.840.1.643374.3.579.2.1 259 1938 Unknown [id number] 2.16.840.1.971594.3.579.2.1 96 1938 Unknown [id number] 2.16.840.1.798114.3.579.2.1 96 1938 Unknown [id number] 2.16.840.1.451731.3.579.2.1 96 1938 Unknown [id number] 2.16.840.1.638438.3.579.2.1 96 1938 Unknown [id number] 2.16.840.1.927445.3.579.2.1 96 1938 Unknown [id number] 2.16.840.1.612346.3.579.2.1 96 1938 Unknown [id number] 2.16.840.1.326140.3.579.2.1 96 1938 Unknown [id number] 2.16.840.1.257719.3.579.2.1 286 1938 Unknown [id number] 2.16.840.1.451816.3.579.2.1 286 1938 Unknown [id number] 2.16.840.1.242732.3.579.2.1 286 1938 Unknown [id number] 2.16.840.1.062660.3.579.2.1 286 1938 Unknown [id number] 2.16.840.1.139027.3.579.2.1 286 1938 Unknown [id number] 2.16.840.1.213043.3.579.2.1 286 1938 Unknown [id number] 2.16.840.1.926818.3.579.2.1 286 1938 Unknown [id number] 2.16.840.1.611611.3.579.2.1 286 Medicare [id number] 2.16.840.1.121010.19 Unknown [id number] 2.16840.1.293662.3.579.2.5 31 Social History Date Type Detail Facility Unknown if ever smoked [employer] Other Start: 06-24-2023 End: 03-24-2024 Sex Assigned At [facility] Start: 01-06-2022 End: 11-07-2023 Tobacco smoking status NHIS Ex-smoker (finding) [facility] Start: 1940 Sex Assigned At Female [facility] History of tobacco use Current smoker [facility] History of tobacco use Cigarette Smoker P [facility] Start: 01-06-2022 Tobacco use and exposure Smokeless tobacco non-user [facility] Start: 03-24-2024 Alcoholic beverage intake Ex-drinker (finding) [facility] Start: 06-24-2023 End: 03-24-2024 History of Social function [facility] Has the [employer], [employer], or [employer] threatened to shut off services in your home in past 12Mo No [facility] Do you belong to any clubs or organizations such as mormonism groups, unions, fraternal or athletic groups, or school groups? Yes [facility] Are you now , , , , never or living with a partner? [facility] How often to you hav e a drink containing alcohol? Never [facility] How many standard dr inks containing alcohol do you have on a typical day? Patient does not drink [facility] Do you feel stress - tense, restless, nervous, or anxious, or unable to sleep at night because your mind is troubled all the time - these days [OSQ] Not at all [employer] Start: 01-06-2022 Tobacco Comment only smoked for 3 months 60 years ago, 2 cigarettes a day [employer] Start: 10-15-2021 Alcohol Comment rare- on new [employer] Start: 1940 Sex assigned at Not on file [email or web address] [facility] Start: 10-25-2014 Sex Female (finding) [email or web address] [facility] Clinical Notes 04-18-2020 to 03-24-2024 Otis Johnie Tino, DO - 03/24/2024 10:30 AM EST Note Date & Type Note Facility 03-24-2024 History of Present illness Narrative Subjective Patient ID: Angelika Muir is a 84 y.o. female. Coral presents today for a recheck of multiple problems. She is taking 4 medications and tolerating them well. She has no side effects. She was living by herself but has family check in on her frequently. Her daughter is paying her bills. They are starting to get some of her bills straightened out. The Myrbetriq is not helping much. She is still has issues with incontinence. It usually happens at night while she is sleeping. She usually has to wash her bed sheets and clothing every morning because she wets herself during sleep. The following portions of the patient's history were reviewed and updated as appropriate: allergies, current medications, past family history, past medical history, past social history, past surgical history, problem list, and medication reconciliation was completed including current medication and post discharge medication. Review of Systems Objective Physical Exam Exam conducted with a retail planning manager present (daughter). Constitutional: General: She is not in acute distress. Appearance: She is overweight. She is not ill-appearing. Cardiovascular: Rate and Rhythm: Normal rate and regular rhythm. Heart sounds: Normal heart sounds. No murmur heard. Pulmonary: Effort: Pulmonary effort is normal. Breath sounds: Normal breath sounds. Musculoskeletal: Cervical back: Neck supple. Neurological: General: No focal deficit present. Mental Status: She is alert. Cranial Nerves: Cranial nerves 2-12 are intact. Gait: Gait abnormal (Ambulate with a cane). Psychiatric: Attention and Perception: Attention normal. Mood and Affect: Mood normal. Speech: Speech normal. Behavior: Behavior normal. Behavior is cooperative. Thought Content: Thought content normal. Cognition and Memory: Cognition is impaired. Memory is impaired. Comments: She does relate current events with relative accuracy regarding the recent terrorist attack in [place] and [place]. She occasionally loses her train of thought but usually picks back up and completes her thought. Assessment/Plan Angelika was seen today for anxiety. Diagnoses and all orders for this visit: Anxiety She is doing well with Lexapro. Continue current regimen Mild late onset Alzheimer's dementia without behavioral disturbance, psychotic disturbance, mood disturbance, or anxiety (CMS-HCC) Stable on current medications. She had declined imaging in the past. Consider imaging with the urinary incontinence because of possibility of normal pressure hydrocephalus Supraventricular tachycardia (CMS-HCC) Stable. PMR (polymyalgia rheumatica) (CMS-HCC) Continue prednisone Mixed stress and urge urinary incontinence She is still having issues with incontinence. Increase Myrbetriq to 50 mg daily. Other orders - mirabegron (MYRBETRIQ) 50 mg tablet extended release 24 hr; Take 1 tablet (50 mg total) by mouth in the morning. documented in this encounter [employer] 05-24-2022 Note PROCEDURE: XR HIP RT 2 [...] by: CAMILO ARNOLD Date: 2022-05-24 19:59 [facility] 03-24-2021 Evaluation note Encounter Date Diagnosis Assessment Notes Mar, Skin rash (ICD-10 - R21) i think eczema, will do clobetasol she already has this. will continue on lotramin. she will call in a few days if not improved. [employer] Other 03-11-2021 NoteHNO ID: [id number] Author: Negro Pompa Service: ? Author Type: Physician Type: Progress Notes Filed: 05/30/2020 6:55 PM Note Text: [facility] [...] questions and concerns were addressed. Negro Pompa, [facility]01-28-2021 NotePatient Outreach (COOCC3) ANGELIKA MUIR ([id number]) 1940 F Date Time Provider Department 04/18/20 PENNY RIBEIRO During your visit today, we recorded the following information about you: Allergies As of Date: 04/18/2020 Noted Allergy Reaction TAPE (ADHESIVE TAPE (ROSINS)) 06/28/2012 2 - Rash Date Reviewed: 01/09/2020 Reviewed by: Niru Cunningham - Fully Assessed Order(s):SARS-COVID VACCINE 1ST DOSE APPT [28302YRV] Order #: [id number] FUTURE Prescriptions as of 04/18/2020 Sig: SERTRALINE [...] breast cancer [Z85.3] 01/10/2014 Encounter Status:Closed by [employer], [employer] on 04/22/20[facility] Evaluation noteNo InformationNort [employer] Other Evaluation noteNo assessment information available [facility] Work Phone: Evaluation note* Diagnosis Anxiety- Primary Anxiety state, unspecified Mild late onset Alzheimer's dementia without behavioral disturbance, psychotic disturbance, mood disturbance, or anxiety (CMS-HCC) Supraventricular tachycardia (CMS-HCC) Other specified cardiac dysrhythmias PMR (polymyalgia rheumatica) (CMS-HCC) Polymyalgia rheumatica Mixed stress and urge urinary incontinence Mixed incontinence urge and stress (male)(female) [facility] Lumbar spondylosis- Primary Lumbosacral spondylosis without myelopathy Spinal stenosis of lumbar region, unspecified whether neurogenic claudication present documented in this encounter [facility] general Narrative - Reported* Type Description Date Medical History hx of Low BP Medical History vertigo Medical History depression Surgical History CARDIAC LOOP RECORDER IMPLANT Surgical History BILATERAL HIP ARTHROPLASTY Surgical History BILATERAL CMC JOINT ARTHROPLAST Y Surgical History TRIGGER RELEASE RIGHT RING FING ER Surgical History BILATRAL FOOT SURGERY Surgical History LEFT TOTAL SHOULDER X2 Hospitalization History see surgical hx [employer] Other InstructionsNot on filedocumented in this encounter [employer] SystemInstructionsNot on filedocumented in this encounter [employer] SystemInstructionsNot on filedocumented in this encounter [email or web address] [facility] Summary Purpose Family History Relationship Condition Age at Onset Recorded Date/T betty father Unknown mother Unknown Advance Directives Advance Directive Response Recorded Date/ Time Advance Directives No September 19 4:15pm Assessments Note Patient: ANGELIKA MUIR MR N: ([id number] Age: 78 years Sex: Female : 1940 Associated Diagnoses: None Author: Elbert Gleason MD Assessment Assessment Diagnosis: Osteoarthritis (JHP17-NO M17.11, 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 Right TKA. Dr. Vickers. [...] Pain is currently described as intermittent but yplnltme-rk-jnwlsm, particularly with activity. Symptoms have failed to respond to more conservative measures, and she now presents for surgical intervention. Please see below regarding the status of active medical conditions and assessment and plan for preoperative medical risk stratification. Medical Illnesses: 1. Osteoarthritis affecting (more content not included)... Note CLINICAL SUMMARY Please take this summary document to your follow up appointments. [facility] 02/02/19 09:32 [address] [place]. [address] PATIENT INFORMATION Name: ANGELIKA MUIR Address: [address] [place] [id number] Age: 78 Years Phone: [phone] : 1940 12:00 MRN: ([id number] Sex: Female Race: White Ethnicity: Not Hispan/Lat Admitted From: Clinic or [facility] Medical Service: Orthopedic Surgery Nurse Unit/Bed: (NC) [...] included)... Note Patient: ANGELIKA MUIR MR N: ([id number] Age: 78 years Sex: Female : 1940 [...] (more content not included)... Note HNO ID: [id number] Author: Cheryle Wilcox (Aa) Service: ? Author Type: [place] Type: Anesthesia Procedure Notes Filed: 05/01/2020 3:33 PM Note Text: ANESTHESIOLOGY PROCEDURE NOTE Airway General Information Procedure Start Time/Medication Administration: 05/01/2020 3:28 PM Patient location during procedure: OR Timeout Performed Pre-procedure: timeout performed Consent Obtained: Yes Patient identity confirmed: arm band, care maintenance team member and patient Staffing Anesthesiologist: Ihsan Gamino CAA: Ankur Wilcox (Aa) Indications and Patient Condition Preoxygenated: yes Patient position: sniffing Indications for airway management: anesthesia anesthesia circuit Method: asleep Final Airway Details Final airway type: supraglottic airway Final Supraglottic Airway: IGEL Size 4 Seal Adequate: yes SIGNATURE: [place] PATIENT NAME: Angelika Muir DATE: May 01, 2020 TIME: 3:33 PM CSN: [id number] Note HNO ID: [id number] Author: Ariana Bhat) Victor Hugo Service: Urology Author Type: Resident Type: Brief Op Note Filed: 05/01/2020 4:09 PM Note Text: BRIEF OPERATIVE / PROCEDURE NOTE LOG ID: [id number] SURGERY/PROCEDURE DATE: 05/01/2020 INCISION/PROCEDURE START TIME: 3:28 PM INCISION CLOSE/PROCEDURE END TIME: 4:05 PM SURGEON(S)/PROCEDURALIST(S) AND DEVELOPER ADVISOR(S): Surgeon(s) and Role: * Negro Pompa - [...] PAGER/CONTACT #: [phone] (more content not included)... Hospital Course Note CLINICAL SUMMARY Please take this summary document to your follow up appointments. [facility] 02/02/19 09:32 [address] [place]. [address] PATIENT INFORMATION Name: ANGELIKA MUIR Address: [address] [place] [id number] Age: 78 Years Phone: [phone] : 1940 12:00 MRN: [id number] Sex: Female Race: White Ethnicity: Not Hispan/Lat Admitted From: Clinic or [facility] Medical Service: Orthopedic Surgery Nurse Unit/Bed: (NC) 2N 0219-01 Admit Date: 01/30/2019 05:59 PCP: Edith SIEGEL , Eduardo Hedrick PHYSICIANS INVOLVED WITH CARE Attending Physicians: [place]o SIEGEL , Amrik Sutton - Orthopaedic Surg Admitting Physician: Amrik Vickers MD - Orthopaedic Surg Primary Care Physician:Edith SIEGEL , Eduardo Hedrick,Internal Medicine, - Consults: Rosibel SIEGEL , Elbert Kim - Internal Medicine RAMÍREZ Rod (more content not included)... Procedure Findings Note HNO ID: [id number] Author: Cheryle Alberto) Brenden Service: ? Author Type: [place] Type: Anesthesia Procedure Notes Filed: 05/01/2020 3:33 PM Note Text: ANESTHESIOLOGY PROCEDURE NOTE Airway General Information Procedure Start Time/Medication Administration: 05/01/2020 3:28 PM Patient location during procedure: OR Timeout Performed Pre-procedure: timeout performed Consent Obtained: Yes Patient identity confirmed: arm band, care maintenance team member and patient Staffing Anesthesiologist: Ihsan Gamino CAA: Ankur Wilcox (Aa) Indications and Patient Condition Preoxygenated: yes Patient position: sniffing Indications for airway management: anesthesia anesthesia circuit Method: asleep Final Airway Details Final airway type: supraglottic airway Final Supraglottic Airway: IGEL Size 4 Seal Adequate: yes SIGNATURE: [place] PATIENT NAME: Angelika Muir DATE: May 01, 2020 TIME: 3:33 PM CSN: [id number] Note HNO ID: [id number] Author: Ariana kaplan (Martina) [place] Service: Urology Author Type: Resident Type: Brief Op Note Filed: 05/01/2020 4:09 PM Note Text: BRIEF OPERATIVE / PROCEDURE NOTE LOG ID: [id number] SURGERY/PROCEDURE DATE: 05/01/2020 INCISION/PROCEDURE START TIME: 3:28 PM INCISION CLOSE/PROCEDURE END TIME: 4:05 PM SURGEON(S)/PROCEDURALIST(S) AND DEVELOPER ADVISOR(S): Surgeon(s) and Role: * Negro Pompa - [...] 01, 2020 TIME: 4:07 PM PAGER/CONTACT #: [phone] (more content not included)... Note Patient: ANGELIKA MUIR MR N: [id number] Age: 78 years Sex: Female : 1940 Associated Diagnoses: None Author: Nate SIEGEL, Shane Comments Supervising Physician Comments Documentation By: Consulting [...] not anticipate sign (more content not included)... Chief Complaint and Reason for Visit Chief Complaint abd pain Additional Source Comments INFORMATION SOURCE (unrecogn ized section and content) DATE CREATED AUTHOR 09/09/2017 [facility] DATE CREATED AUTHOR AUTHOR'S ORGANIZ ATION 09/15/2017 [facility] DATE CREATED AUTHOR AUTHOR'S ORGANIZ ATION 02/06/2019 [facility] DATE CREATED AUTHOR AUTHOR'S ORGANIZ ATION 11/22/2019 [facility] DATE CREATED AUTHOR AUTHOR'S ORGANIZ ATION 05/08/2020 [facility] DATE CREATED AUTHOR AUTHOR'S ORGANIZ ATION 04/05/2021 [facility] DATE CREATED AUTHOR AUTHOR'S ORGANIZ ATION 05/31/2022 [facility] DATE CREATED AUTHOR AUTHOR'S ORGANIZ ATION 05/26/2023 [facility] DATE CREATED AUTHOR AUTHOR'S ORGANIZ ATION 10/22/2023 [facility] EP[facility] DATE CREATED AUTHOR AUTHOR'S ORGANIZ ATION 11/18/2023 [facility] DATE CREATED AUTHOR AUTHOR'S ORGANIZ ATION 12/12/2023 [facility] DATE CREATED AUTHOR AUTHOR'S ORGANIZ ATION 03/31/2024 [facility] REASON FOR VISIT (unrecogniz ed section and content) Reason Comments Anxiety Reason Onset Date Comments Med Refill 04/03/2024 Care Teams (unrecognized sec tion and content) Team Status: Active Member Role Status Dates Yolanda Calvo DO Primary Care Provider Active Team Status: Inactive Member Role Status Dates Yolanda Calvo DO Primary Care Provider Active Start: November 06, 2023 End: November 07, 2023 Rita Corado DO Emergency Provider Active St art: November 06, 2023 End: November 07, 2023 Quality Assurance Engineer Relationship Specialty Start Date End Date Otis Chaves DO [address] [place] [address] PCP - General Family Medicine 10/03/21 Quality Assurance Engineer Relationship Specialty Start Date End Date Otis Chaves DO [address] [place] [address] PCP - General Family Medicine 10/03/21 Quality Assurance Engineer Relationship Specialty Start Date End Date Otis Chaves DO [address] [place] [address] [place] [address] PCP - General Family Medicine 10/03/21 Goals (unrecognized section and content) Goals may [...] BE BASED ON THE PRIMARY CLINICAL RECORDS. [facility] [facility]. provides no warranty or guarantee of the accuracy or completeness of information in this document.
--- NOTE | 2024-05-31 13:24 | P.CN_ITS ---
Consult Note: HPI Data of Consult Patient: known to practice within the last 3 years Requesting Physician: Jamaica Garcia NP Primary Care Provider: FRANKI CHAVES Consult Narrative Reason for consult: Low back, lower extremity pain Narrative: 84yof who presents for assessment. continues to have worsening pain from back to bilateral lower extremities. mri reviewed, which is significant for multilevel degeneration and multiple levels of stenosis, worst at l3-4 and l4-5. she continues to engage in provider directed home exercise, which she has attempted for >6 weeks with minimal benefit. utilizes gabapentin. denies adverse med side effects. previously underwent right L3-4 L4-5 TFESI with >80% improvement greater than 3 months. Pain 8/10 increasing with standing walking and activity. cc:: CC: Jamaica Garcia NP Review of Systems ROS Status of ROS 10 or more systems reviewed and unremark able except as noted in history and below Musculoskeletal Reports: back pain and extremity pain PFSH PFSH Medical History Rheumatoid arthritis ?M06.9 - Rheumatoid arthritis, unspecified (ICD-10) H/O malignant neoplasm of breast ?Z85.3 - Personal history of malignant neoplasm of breast (ICD-10) Kidney stone ?N20.0 - Calculus of kidney (ICD-10) Smoker ?F17.200 - Nicotine dependence, unspecified, uncomplicated (ICD-10) Surgical History Status post total shoulder arthroplasty ?Z96.619 - Presence of unspecified artificial shoulder joint (ICD-10) H/O foot surgery ?Z98.890 - Other specified postprocedural states (ICD-10) H/O hand surgery ?Z98.890 - Other specified postprocedural states (ICD-10) S/P total knee arthroplasty ?Z96.659 - Presence of unspecified artificial knee joint (ICD-10) S/P total hip arthroplasty ?Z96.649 - Presence of unspecified artificial hip joint (ICD-10) H/O thumb surgery ?Z98.890 - Other specified postprocedural states (ICD-10) Hx of tonsillectomy ?Z90.89 - Acquired absence of other organs (ICD-10) Family History Other Lumbago Meds Home Medications and Allergies Home Medications ?Medication ?Instructions ?Recorded ?Confirmed ?Type donepezil 5 mg tablet mg 11/01/23 History prednisone 5 mg tablet mg 11/01/23 History Allergies Allergy/AdvReac Type Severity Reaction Status Date / Time No Known Drug Allergies Allergy Verified 12/06/23 11:27 Exam Constitutional Documenting provider has reviewed patient's vital signs: yes Common normals: no apparent distress, oriented x3, healthy appearing, alert and well nourished General appearance: cooperative HENMT Common normals: normocephalic, hearing grossly normal bilaterally and moist oral mucous membranes Head and scalp: normocephalic Eye Common normals: PERRL Pupil: PERRL Neck & C-Spine Common normals: full ROM General: normal visual inspection Chest Common normals: inspection of chest normal Respiratory Common normals: normal respiratory effort, no retractions and no use of accessory muscles Back & Pelvis Thoracic spine/upper back: normal to inspection Lumbar spine/lower back: normal to inspection, ROM limited and straight leg raise positive right Sacroiliac joints: SI joint(s) abnormal Other: positive right SLR, altered sensation to right L3,4,5 dermatomal pattern strength in RLE 4/5 LLE 5/5 right SIJ positive isabelle(patricks), gaenslens, thigh thrust, compression test Extremity Common normals: normal to inspection and full ROM Other: pain in right groin with internal log roll Neuro Common normals: oriented x3, CN's II-XII intact bilaterally, moves all extremities, no focal motor deficits, no sensory deficits noted and deep tendon reflexes 2+ bilaterally Sensorium/orientation: alert Motor exam: no movement abnormalities noted and strength abnormal Psych Common normals: mental status grossly normal, thought process normal, cooperative, affect normal, speech normal and activity/motor behavior normal Speech: normal speech Thought process: normal thought process Results Additional Findings Additional findings: If on a controlled substance or opioids, I have checked an [place]AR[place] report on this patient and there are no aberrancies noted in the prescribing history.??If on a controlled substance or opioid a drug screen was completed and reviewed within the last year, and if there has not been a drug screen completed we ordered one today to monitor higher risk, state monitored pain medication use. As part of providing excellent, safe, comprehensive care, the following was completed at our patient's visit: 1. A medication reconciliation and review to ensure accurate knowledge of current/active medications, including asking our patients to inform us about any [id number] medications or herbal remedies/nutritional supplements/alternative remedies. 2. A review to specifically ensure our patients have had annual screening for screening for depression, screening for tobacco use, and screening for unhealthy alcohol use. For concerning screenings had a discussion with the patient, provided patient education, and recommended follow-up with primary care provider when appropriate. If patient noted with a risk of falling, they received education on strength, gait, and balance training to prevent future risk of falling. Assessment and Plan Assessment and Plan (1) Lumbar stenosis with neurogenic claudication: (2) Lumbar spondylosis: (3) Right hip pain: Assessment and Plan: declining further workup (4) Sacroiliitis: Plan right L3-4 L4-5 TFESI under fluoroscopy for lumbar stenosis with NC, previous injection provided >50% improvement greater than 3 months. risks vs benefits reviewed. consider right SIJ injection under fluoroscopy for sacroiliitis continue current medications, tolerating well without side effects f/u 2 weeks after injection complete
== END 2024-05-31 12:30 | disposition home or self-care (01) ==
LOC: PM 12:30
PROVIDERS: PCP Family Medicine; Visit Provider Nurse Practitioner
DX: M48.062 Spinal stenosis, lumbar region with neurogenic claudication (principal); M47.816 Spondylosis without myelopathy or radiculopathy, lumbar region; M25.551 Pain in right hip; M46.1 Sacroiliitis, not elsewhere classified
CPT/HCPCS: G0463

== ENCOUNTER 2024-06-12 11:33 | Day surgery (SDC) | payer MEDICARE, OTHER, SELFPAY ==
--- OUTSIDE RECORDS SUMMARY | 2024-06-12 11:53 | XMS_ITS | CCD ---
Author Organization [facility] Providers Care Supervisor [place]cel[place] Department Name Role Phone , JOSE LUIS Y [...] Unavailable DO Yolanda Calvo Primary Care Provider DO Rita Corado Emergency Provider [phone] Yolanda Calvo Primary Care Unavailable Rita Corado Attending Unavailable Rita Corado Admitting Unavailable Gieditis , Tony Rodríguez Attending Unavailable Giedraitis , Tony Rodríguez Attending Unavailable Giedraitis , Tony Rodríguez Attending Unavailable Giedraitis , Tony Rodríguez Attending Unavailable Giedraitis , Tony Rodríguez Attending Unavailable Giedraitis , Tony Rodríguez Attending Unavailable Giedraitis MD, Tony Rodríguez Attending Unavailable Furlong DO, Otis G Primary Care Provider FURLONG, OTIS G Attending Unavailable FURLONG, OTIS G Referring Unavailable FURLONG, OTIS G Primary Care Unavailable FURLONG, OTIS G Attending Unavailable FURLONG, OTIS G Referring Unavailable FURLONG, OTIS G Primary Care Unavailable RODRÍGUEZCESIA MinerYUAN Attending Unavailable FURLONG, OTIS G Referring Unavailable [...] Date of Onset Reaction(s) Facility (1 source) 19916,00; Translations: [34333,00] Propensity to adverse reactions (disorder) 9 [facility] Repository (6 sources) Adhesive agent; Translations: [ADHESIVE] Propensity to adverse reactions to drug (disorder) 3 Rash [facility] Repository (6 sources) Fludrocortisone ; Translations: [FLUDROCORTISON E] Drug Allergy 2 Other (See Comments) [facility] Repository (6 sources) OTHER; Translations: [OTHER] Propensity to adverse [...] Active donepezil hydrochloride 10 mg oral tablet (4 sources) Start: 02-21-2024 take 1 tablet by mouth once daily donepeziL (ARICEPT) 10 mg tablet TAKE 1 TABLET BY MOUTH NIGHTLY 30 tablet 5 02/21/2024 Active escitalopram 5 mg oral tablet (6 sources) Serotonin Reuptake Inhibitor Start: 06-11-2024 take 1 tablet by mouth in the morning escitalopram (LEXAPRO) 5 mg tablet TAKE 1 TABLET BY MOUTH IN THE MORNING 90 tablet 1 06/11/2024 Active Start: 03-20-2024 End: 06-11-2024 take 1 tablet by mouth in the morning escitalopram (LEXAPRO) 5 mg tablet Take 1 tablet (5 mg total) by mouth in the morning. 30 tablet 2 04/03/2024 06/11/2024 Discontinued fludrocortisone acetate 0.1 mg oral tablet (1 [...] mirabegron 50 mg extended release oral tablet (5 sources) beta3-Adrenergic Agonist Start: 03-24-2024 take 1 [...] day Active naproxen 250 mg oral tablet (5 sources) Nonsteroidal Anti-inflammatory Drug Start: 01-13-2024 End: 04-03-2024 take 1 tablet by mouth twice daily as needed for pain naproxen (NAPROSYN) 250 mg tablet Take 1 tablet (250 mg total) by mouth 2 (two) times a day as needed for pain. 60 tablet 1 04/03/2024 Active microencapsulated potassium chloride 20 meq extended release oral tablet (7 sources) Start: 09-19-2017 take 20 mEq by mouth once daily Potassium Chloride Active 20 MEQ PO Daily September 19, 2017 12:00am predniSONE 5 mg oral tablet (4 sources) Start: 03-24-2023 take 1 tablet by [...] pain] Onset: 11-06-2023 11-07-2023 Episodic Anxiety disorders (7 sources) Anxiety; Translations: [Anxiety disorder, unspecified] Onset: 12-09-2023 03-24-2024 Chronic Asthma (4 sources) Asthma; Translations: [Unspecified asthma, uncomplicated] Onset: 11-28-2021 11-28-2021 Chronic Cardiac dysrhythmias (5 sources) Supraventricular tachycardia; Translations: [Supraventricular tachycardia (CMS-HCC)] Onset: 03-24-2024 03-24-2024 Chronic Coronary atherosclerosis and other heart disease (5 sources) Atherosclerotic heart disease of [place] coronary artery without angina pectoris; Translations: [Coronary atherosclerosis] Onset: 01-13-2012 11-28-2021 Chronic Delirium, dementia, and amnestic and other cognitive disorders (6 sources) Senile dementia; 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] Onset: 03-24-2024 03-24-2024 Chronic Genitourinary symptoms and ill-defined conditions (10 sources) Mixed urinary incontinence; Translations: [Mixed incontinence] Onset: 11-28-2021 03-24-2024 Chronic Osteoarthritis (13 sources) Osteoarthritis of right knee joint; Translations: [Unilateral primary osteoarthritis, right knee] Onset: 04-02-2023 Chronic Other aftercare (1 source) Other mcfp (current) drug therapy; Translations: [OTH BOARD SETTER CURRENT DRUG THERAPY] Onset: 05-28-2022 Episodic Other connective tissue disease (2 sources) Polymyalgia rheumatica; Translations: [POLYMYALGIA RHEUMATICA] Onset: 05-28-2022 Chronic Other connective tissue disease (1 source) Presence of artificial hip joint, bilateral; Translations: [PRESENCE ARTIFICIAL HIP JOINT BILAT] Onset: 05-28-2022 Chronic Other connective tissue disease (5 sources) Polymyalgia rheumatica; Translations: [Polymyalgia rheumatica] Onset: 07-08-2022 03-24-2024 Chronic Other connective tissue disease (1 source) Muscle weakness (generalized); Translations: [MUSCLE WEAKNESS GENERALIZED] Onset: 05-28-2022 Episodic Other ear and sense organ disorders (4 sources) Sensorineural hearing loss, bilateral; Translations: [Sensorineural [...] tissue, unspecified] 02-28-2021 Episodic Residual codes; unclassified (4 sources) Obstructive sleep apnea syndrome; Translations: [Obstructive [...] Date Documented Date Episodic/Chronic Cancer of breast (4 sources) Malignant neoplasm of female breast; Translations: [Malignant neoplasm of unspecified site of unspecified female breast] Onset: 01-08-2012 Resolved: 05-24-2023 05-24-2023 Chronic Cancer of breast (1 source) Personal history of malignant neoplasm of breast; Translations: [PERSONAL HISTORY OF MALIGNANT NEOPLASM OF BREAST] Onset: 11-06-2016 Episodic Chronic ulcer of skin (4 sources) Ulcer of lower extremity; Translations: [Non-pressure chronic ulcer of unspecified part of left lower leg limited to breakdown of skin] Onset: 06-26-2022 Resolved: 05-24-2023 05-24-2023 Chronic Complications of surgical procedures or medical care (4 sources) Non-healing surgical wound; Translations: [Other complications of procedures, not elsewhere classified, initial encounter] Onset: 12-05-2021 Resolved: 03-11-2022 03-11-2022 Episodic Diabetes mellitus without complication (2 sources) Hyperglycemia, unspecified; Translations: [Hyperglycemia, unspecified] Onset: 05-24-2023 Episodic Essential hypertension (10 sources) Essential hypertension; Translations: [Essential (primary) hypertension] Onset: 11-28-2021 Resolved: 05-24-2023 05-24-2023 Chronic Genitourinary symptoms and ill-defined conditions (5 sources) Urgent desire to urinate; Translations: [Urgency of urination] Onset: 11-28-2021 11-28-2021 Episodic Mood disorders (14 sources) Mood disorder; Translations: [Unspecified mood [affective] disorder] Onset: 12-21-2007 Resolved: 06-26-2022 06-26-2022 Chronic Mood disorders (4 sources) Mood disorders Onset: 03-24-2024 03-24-2024 Open wounds of extremities (4 sources) Open wound of left lower leg; Translations: [Unspecified open wound, left lower leg, initial encounter] Onset: 11-27-2021 Resolved: 10-26-2023 10-26-2023 Episodic Other aftercare (1 source) manager long term care (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) use of aspirin; Translations: [BOARD SETTER (CURRENT) USE OF ASPIRIN] Onset: 11-06-2016 Episodic Other connective tissue disease (4 sources) History of right total knee replacement; Translations: [Presence of right artificial knee joint] Onset: 11-28-2021 Resolved: 06-26-2022 06-26-2022 Chronic Other connective tissue disease (4 sources) Tear of right rotator cuff; Translations: [Unspecified rotator cuff tear or rupture of right shoulder, not specified as traumatic] Onset: 06-03-2016 06-03-2016 Episodic Other connective tissue disease (4 sources) Trochanteric bursitis; Translations: [Trochanteric bursitis, left hip] Onset: 01-02-2022 01-02-2022 Episodic Other diseases of bladder and urethra (4 sources) Urethral stricture; Translations: [Unspecified urethral stricture, male, unspecified site] Onset: 11-28-2021 11-28-2021 Episodic Other diseases of kidney and ureters (2 sources) Disorder of kidney and ureter, unspecified; Translations: [Disorder of kidney and ureter, unspecified] Onset: 05-24-2023 Episodic Other diseases of veins and lymphatics (10 sources) Stasis dermatitis; Translations: [Venous insufficiency (chronic) (peripheral)] Onset: 11-28-2021 11-28-2021 Episodic Other nervous system disorders (4 sources) Abnormal gait; Translations: [Unspecified abnormalities of gait and mobility] Onset: 11-28-2021 11-28-2021 Episodic Other nervous system disorders (1 source) Other symptoms and signs involving cognitive functions and awareness; Translations: [Other symptoms and signs involving cognitive functions and awareness] Onset: 10-26-2023 Episodic Other non-epithelial cancer of skin (12 sources) Malignant neoplasm of skin of lower [...] Episodic Other nutritional; endocrine; and metabolic disorders (4 sources) Severe obesity; Translations: [Class 3 severe obesity due to excess calories with serious comorbidity in adult, unspecified BMI] Onset: 06-26-2022 Resolved: 07-07-2022 07-07-2022 Chronic Other skin disorders (1 source) Rash and other nonspecific skin eruption Onset: 03-24-2021 Resolved: 03-24-2021 Episodic Swati-; endo-; and myocarditis; cardiomyopathy (except that caused by tuberculosis or sexually transmitted disease) (4 sources) Disorder of pericardium; Translations: [Disease of pericardium, unspecified] Onset: 01-08-2012 11-28-2021 Episodic Residual codes; unclassified (2 sources) Other amnesia; Translations: [Other amnesia] Onset: 05-24-2023 Episodic Residual codes; unclassified (4 sources) Postmenopausal state; Translations: [Asymptomatic menopausal state] Onset: 12-09-2023 12-09-2023 Episodic Residual codes; unclassified (1 source) Asymptomatic menopausal state; Translations: [Asymptomatic menopausal state] Onset: 12-09-2023 Episodic Residual codes; unclassified (1 source) Memory loss Onset: 05-24-2023 Episodic Rheumatoid arthritis and related disease (4 sources) Rheumatoid arthritis; Translations: [Rheumatoid arthritis, unspecified] Onset: 06-03-2016 Resolved: 07-08-2022 07-08-2022 Chronic Syncope (8 sources) Syncope and collapse; Translations: [Syncope and collapse] Onset: 09-26-2012 11-28-2021 Episodic Unclassified (1 source) Condition Update; Translations: [Condition Update] Onset: 07-21-2017 Results Test Name Value Interpretation Reference Range Facility Alanine aminotransferase [En zymatic activity/volume] in Serum or PlasmaOrdered By: Rita Corado on 11-07-2023 ALT [Catalytic activity/Vol] 5 U/L Low 7-52 [facility] Comment on above: Performed By: #### H EPATIC, LIPASE, BMP, DIFF CBC #### [facility] [address] [place] [address] [place] Albumin [Mass/volume] in Ser um or Plasma by Bromocresol green (BCG) dye binding methoOrdered By: Rita Corado on 11-07-2023 Albumin BCG dye [Mass/Vol] 3.5 g/dL 3.5-5.7 [facility] Alkaline phosphatase [Enzyma tic activity/volume] in Serum or PlasmaOrdered By: Rita Corado on 11-07-2023 ALP [Catalytic activity/Vol] 77 U/L Normal 34-104 [facility] Comment on above: Performed By: #### H EPATIC, LIPASE, BMP, DIFF CBC #### [facility] [address] [place] [address] Aspartate aminotransferase [ Enzymatic activity/volume] in Serum or PlasmaOrdered By: Rita Corado on 11-07-2023 AST [Catalytic activity/Vol] 10 U/L Low 13-39 [facility] Comment on above: Performed By: #### H EPATIC, LIPASE, BMP, DIFF CBC #### [facility] [address] Basic Metabolic Panelon 10-20 Creatinine Clr Calc Pharmacy 40.73 Normal [facility] Comment on above: Performed By: #### H EPATIC, LIPASE, BMP, DIFF CBC #### [address] GFR/1.73 sq M.predicted MDRD (S/P/Bld) [Vol rate/Area] 59.463 mL/min/{1.73_m2} Normal [facility] Comment on above: Performed By: #### H EPATIC, LIPASE, BMP, DIFF CBC #### [address] Basophils Auto (Bld) [#/Vol] Ordered By: Rita Corado on 11-07-2023 Basophils (Bld) [#/Vol] N/A [facility] Basophils/100 WBC Auto (Bld) Ordered By: Rita Corado on 11-07-2023 Basophils/100 WBC (Bld) N/A [facility] Bilirubin Test strip Ql (U)O rdered By: Rita Corado on 11-07-2023 Bilirubin Ql (U) Negative Negative [facility] Bilirubin.direct [Mass/volum e] in Serum or PlasmaOrdered By: Rita Corado on 11-07-2023 Bilirubin.direct [Mass/Vol] 0.10 mg/dL 0.03-0.18 [facility] Bilirubin.total [Mass/volume ] in Serum or PlasmaOrdered By: Rita Corado on 11-07-2023 Bilirubin [Mass/Vol] 0.5 mg/dL Normal 0.3-1.0 [facility] Comment on above: Performed By: #### H EPATIC, LIPASE, BMP, DIFF CBC #### [facility] [address] [place] [address] [facility] CT abdomen pelvis w conon CT abdomen pelvis w con [facility] [place] [address] [place] [address] CT Scan Report Signed Patient: Angelika Muir MR#: [id number] : 1940 Acct:[id number] Age/Sex: 83 / F ADM Date: 11/06/23 Loc: ER Room: Type: [facility] ER Attending Dr: Copies to: Rita Corado [...] Martínez Smith M.D.11/07/2023 2:53 PM Dictation Location: [place] [address] Transcribed By: JOSE 11/07/23 1453 Dictated By: Martínez Simth II, MD 11/07/23 1444 Signed By: 11/07/23 1453 Normal [facility] Calcium [Mass/volume] in Ser um or PlasmaOrdered By: Rita Corado on 11-07-2023 Calcium [Mass/Vol] 9.0 mg/dL Normal 8.6-10.3 [facility] Comment on above: Performed By: #### H EPATIC, LIPASE, BMP, DIFF CBC #### [facility] [address] [place] [id number] [place] Carbon dioxide, total [Moles /volume] in Serum or PlasmaOrdered By: Rita Corado on 11-07-2023 CO2 [Moles/Vol] 29.8 mmol/L Normal 21.0-31.0 [facility] Comment on above: Performed By: #### H EPATIC, LIPASE, BMP, DIFF CBC #### [facility] [address] [place] [id number] [place] Chloride [Moles/volume] in S ricky or PlasmaOrdered By: Rita Corado on 11-07-2023 Chloride [Moles/Vol] 101 mmol/L Normal 98-107 [facility] Comment on above: Performed By: #### H EPATIC, LIPASE, BMP, DIFF CBC #### [facility] [address] [place] [id number] [place] Color of Urine by AutoOrdere d By: Rita Corado on 11-07-2023 Color (U) Light-yellow Normal Yellow [facility] Comment on above: Order Comment: Name Collection Type:: Clean-Voided Midstream Performed By: #### U A #### [facility] [address] [place], [place] [id number] [place] Creatinine [Mass/volume] in Serum or PlasmaOrdered By: Rita Corado on 11-07-2023 Creatinine [Mass/Vol] 0.94 mg/dL Normal 0.60-1.20 [facility] Comment on above: Performed By: #### H EPATIC, LIPASE, BMP, DIFF CBC #### [address] Diff and CBCon 11-07-2023 Mean Corpuscular HGB Conc 33.4 g/dL Normal 32.0-35.0 [facility] Comment on above: Performed By: #### H EPATIC, LIPASE, BMP, DIFF CBC #### [address] Monocytes/100 WBC (Bld) 21.51 % High 0.00-20.00 [facility] Comment on above: Result Comment: For adults in ED, MDW > 20.0 may be associated with a higher risk of sepsis during the first 12 hrs of hospital admission Performed By: #### H EPATIC, LIPASE, BMP, DIFF CBC #### [address] Platelet Estimate Normal Normal Normal [facility] Comment on above: Performed By: #### H EPATIC, LIPASE, BMP, DIFF CBC #### [address] Platelet Morphology Normal Normal Normal [facility] Comment on above: Result Comment: PERF ORMED BY: [place] [address] PATHOLOGIST DRUM SAW OPERATOR JORGE LUIS RUELAS M.D. Performed By: #### H EPATIC, LIPASE, BMP, DIFF CBC #### [address] Eosinophils Auto (Bld) [#/Vo l]Ordered By: Rita Corado on 11-07-2023 Eosinophils (Bld) [#/Vol] N/A [facility] Eosinophils/100 WBC Auto (Bl d)Ordered By: Rita Corado on 11-07-2023 Eosinophils/100 WBC (Bld) N/A [facility] Erythrocyte distribution wid th [Ratio] by Automated countOrdered By: Rita Corado on 11-07-2023 Erythrocyte distribution width (RBC) [Ratio] 14.2 % Normal 11.9-15.3 [facility] Comment on above: Performed By: #### H EPATIC, LIPASE, BMP, DIFF CBC #### [facility] [address] Erythrocytes [#/volume] in B lood by Automated countOrdered By: Rita Corado on 11-07-2023 RBC (Bld) [#/Vol] 3.89 10*6/uL Normal 3.60-5.00 [facility] Comment on above: Performed By: #### H EPATIC, LIPASE, BMP, DIFF CBC #### [facility] [address] Glucose [Mass/volume] in Ser um or PlasmaOrdered By: Rita Corado on 11-07-2023 Glucose [Mass/Vol] 98 mg/dL Normal 70-100 [facility] Comment on above: ADA recommended refe rence rangeRandom Glucose Reference Range is dependent on time and content of last meal. Glucose of more than 200 mg/dL in a nonstressed, ambulatory subject supports the diagnosis of Diabetes Mellitus. Result Comment: [place] om Glucose Reference Range is dependent on time and content of last meal. Glucose of more than 200 mg/dL in a nonstressed, ambulatory subject supports the diagnosis of Diabetes Mellitus. ADA recommended reference range Performed By: #### H EPATIC, LIPASE, BMP, DIFF CBC #### [facility] [address] [place] [address] [place] Glucose [Mass/volume] in Uri ne by Test stripOrdered By: Rita Corado on 11-07-2023 Glucose Test strip (U) [Mass/Vol] Normal mg/dL Normal [facility] Hematocrit [Volume Fraction] of Blood by Automated countOrdered By: Rita Corado on 11-07-2023 Hematocrit (Bld) [Volume fraction] 32.8 % Low 34.0-46.4 [facility] Comment on above: Performed By: #### H EPATIC, LIPASE, BMP, DIFF CBC #### [facility] [address] [place] [address] Hemoglobin Test strip Ql (U) Ordered By: Rita Corado on 11-07-2023 Hemoglobin Ql (U) Negative Negative [facility] Hemoglobin [Mass/volume] in BloodOrdered By: Rita Corado on 11-07-2023 Hemoglobin (Bld) [Mass/Vol] 11.0 g/dL Low 11.8-15.4 [facility] Comment on above: Performed By: #### H EPATIC, LIPASE, BMP, DIFF CBC #### [address] Hepatic Panelon 11-07-2023 Albumin [Mass/Vol] 3.5 g/dL Normal 3.5-5.7 [facility] Comment on above: Performed By: #### H EPATIC, LIPASE, BMP, DIFF CBC #### [address] Bilirubin,Indirect 0.4 mg/dL Normal [facility] Comment on above: Performed By: #### H EPATIC, LIPASE, BMP, DIFF CBC #### [address] Bilirubin.indirect [Mass/Vol] 0.10 mg/dL Normal 0.03-0.18 [facility] Comment on above: Performed By: #### H EPATIC, LIPASE, BMP, DIFF CBC #### [address] Ketones [Presence] in Urine by Test stripOrdered By: Rita Corado on 11-07-2023 Ketones Ql (U) Negative Normal Negative [facility] Comment on above: Order Comment: Name Collection Type:: Clean-Voided Midstream Performed By: #### U A #### [address] Leukocyte esterase [Presence ] in Urine by Test stripOrdered By: Rita Corado on 11-07-2023 Leukocyte esterase Test strip Ql (U) Negative Normal Negative [facility] Comment on above: Order Comment: Name Collection Type:: Clean-Voided Midstream Performed By: #### U A #### [address] [place] [address] [place] Leukocytes [#/volume] correc isabela for nucleated erythrocytes in Blood by Automated counOrdered By: Rita Corado on 11-07-2023 WBC corrected for nucl RBC Auto (Bld) [#/Vol] 6.7 10*3/uL 3.8-11.6 [facility] Leukocytes [#/volume] in Blo od by Automated countOrdered By: Rita Corado on 11-07-2023 WBC (Bld) [#/Vol] 6.7 10*3/uL Normal 3.8-11.6 [facility] Comment on above: Performed By: #### H EPATIC, LIPASE, BMP, DIFF CBC #### [address] Lipase [Enzymatic activity/v olume] in Serum or PlasmaOrdered By: Rita Corado on 11-07-2023 Lipase [Catalytic activity/Vol] 32.0 U/L Normal 11.0-82.0 [facility] Comment on above: Result Comment: PERF ORMED BY: [place] [address] PATHOLOGIST DRUM SAW OPERATOR JORGE LUIS RUELAS M.D. Performed By: #### H EPATIC, LIPASE, BMP, DIFF CBC #### [address] Lymphocytes Auto (Bld) [#/Vo l]Ordered By: Rita Corado on 11-07-2023 Lymphocytes (Bld) [#/Vol] N/A [facility] Lymphocytes/100 WBC Auto (Bl d)Ordered By: Rita Corado on 11-07-2023 Lymphocytes/100 WBC (Bld) N/A [facility] Lymphocytes/100 leukocytes i n Blood by Manual countOrdered By: Rita Corado on 11-07-2023 Lymphocytes/100 WBC (Bld) 22 % Normal 18-42 [facility] Comment on above: Performed By: #### H EPATIC, LIPASE, BMP, DIFF CBC #### [facility] [address] [place] [address] [place] MCH [Entitic mass] by Automa isabela countOrdered By: Rita Corado on 11-07-2023 MCH (RBC) [Entitic mass] 28.2 pg Normal 24.7-34.3 [facility] Comment on above: Performed By: #### H EPATIC, LIPASE, BMP, DIFF CBC #### [facility] [address] [place] [address] MCHC Auto (RBC) [Mass/Vol]Or dered By: Rita Corado on 11-07-2023 MCHC (RBC) [Mass/Vol] 33.4 g/dL 32.0-35.0 [facility] MCV [Entitic volume] by Auto mated countOrdered By: Rita Corado on 11-07-2023 MCV (RBC) [Entitic vol] 84.4 fL Normal 80-100 [facility] Comment on above: Performed By: #### H EPATIC, LIPASE, BMP, DIFF CBC #### [facility] [address] [place] [address] Manual blood segmented neutr ophils/100 leukocytesOrdered By: Rita Corado on 11-07-2023 Segmented neutrophils/100 WBC (Bld) 73 % High 50-70 [facility] Comment on above: Performed By: #### H EPATIC, LIPASE, BMP, DIFF CBC #### [address] Monocyte distribution width [Entitic volume] in Blood by AutomatedOrdered By: Rita Corado on 11-07-2023 Monocyte distribution width Auto (Bld) [Entitic vol] 21.51 % High 0.00-20.00 [facility] Comment on above: For adults in ED, MD W > 20.0 may be associated with a higher risk of sepsis during the first 12 hrs of hospital admission Monocytes Auto (Bld) [#/Vol] Ordered By: Rita Corado on 11-07-2023 Monocytes (Bld) [#/Vol] N/A [facility] Monocytes/100 WBC Auto (Bld) Ordered By: Rita Corado on 11-07-2023 Monocytes/100 WBC (Bld) N/A [facility] Monocytes/100 leukocytes in Blood by Manual countOrdered By: Rita Corado on 11-07-2023 Monocytes/100 WBC (Bld) 5 % Normal 2-11 [facility] Comment on above: Performed By: #### H EPATIC, LIPASE, BMP, DIFF CBC #### [facility] [address] [place] [address] [place] Neutrophils Auto (Bld) [#/Vo l]Ordered By: Rita Corado on 11-07-2023 Neutrophils (Bld) [#/Vol] N/A [facility] Neutrophils/100 WBC Auto (Bl d)Ordered By: Rita Corado on 11-07-2023 Neutrophils/100 WBC (Bld) N/A [facility] Nitrite Test strip Ql (U)Ord ered By: Rita Corado on 11-07-2023 Nitrite Ql (U) Negative Negative [facility] No Panel InformationOrdered By: Rita Corado on 11-07-2023 Estimated GFR (CKD-EPI) 59.463 mL/Min [facility] Creatinine Clearance (Chem 40.73 [facility] Nucleated erythrocytes [Pres ence] in Blood by Automated countOrdered By: Rita Corado on 11-07-2023 Nucleated RBC Auto Ql (Bld) N/A [facility] Platelet adequacy [Presence] in Blood by Light microscopyOrdered By: Rita Corado on 11-07-2023 Platelets LM Ql (Bld) Normal Normal [facility] Platelet mean volume [Entiti c volume] in Blood by Automated countOrdered By: Rita Corado on 11-07-2023 Platelet mean volume (Bld) [Entitic vol] 7.3 fL Normal 6.3-10.7 [facility] Comment on above: Performed By: #### H EPATIC, LIPASE, BMP, DIFF CBC #### [facility] [address] Platelet morphology finding [Identifier] in BloodOrdered By: Rita Corado on 11-07-2023 Platelet morphology finding Nom (Bld) Normal Normal [facility] Hospital Platelets [#/volume] in [place] by Automated countOrdered By: Rita Corado on 11-07-2023 Platelets (Bld) [#/Vol] 326 10*3/uL Normal 150-450 [facility] Comment on above: Performed By: #### H EPATIC, LIPASE, BMP, DIFF CBC #### [facility] [address] [place] [address] Potassium [Moles/volume] in Serum or PlasmaOrdered By: Rita Corado on 11-07-2023 Potassium [Moles/Vol] 3.9 mmol/L Normal 3.5-5.1 [facility] Comment on above: Performed By: #### H EPATIC, LIPASE, BMP, DIFF CBC #### [address] Protein Test strip (U) [Mass /Vol]Ordered By: Rita Corado on 11-07-2023 Protein (U) [Mass/Vol] Negative Negative [facility] Protein [Mass/volume] in Ser um or PlasmaOrdered By: Rita Corado on 11-07-2023 Protein [Mass/Vol] 6.9 g/dL Normal 6.4-8.9 [facility] Comment on above: Performed By: #### H EPATIC, LIPASE, BMP, DIFF CBC #### [address] RBC morphologyOrdered By: Kings Corado on 11-07-2023 RBC morphology finding Nom (Bld) Normal Normal [facility] Comment on above: Performed By: #### H EPATIC, LIPASE, BMP, DIFF CBC #### [facility] [address] [place] [address] Serum globulin measurement b y calculation (mass/volume)Ordered By: Rita Corado on 11-07-2023 Globulin (S) [Mass/Vol] 3.4 g/dL Normal [facility] Comment on above: Performed By: #### H EPATIC, LIPASE, BMP, DIFF CBC #### [address] Serum or plasma albumin/glob ulin mass ratioOrdered By: Rita Corado on 11-07-2023 Albumin/Globulin [Mass ratio] 1.0 {ratio} Normal [facility] Comment on above: Performed By: #### H EPATIC, LIPASE, BMP, DIFF CBC #### [address] Serum or plasma anion gap de terminationOrdered By: Rita Corado on 11-07-2023 Anion gap [Moles/Vol] 10.1 mmol/L Normal 6.0-15.0 [facility] Comment on above: Performed By: #### H EPATIC, LIPASE, BMP, DIFF CBC #### [address] Serum or plasma non-glucuron idated bilirubin measurement (mass/volume)Ordered By: Rita Corado on 11-07-2023 Bilirubin.indirect [Mass/Vol] 0.4 mg/dL [facility] Sodium [Moles/volume] in Ser um or PlasmaOrdered By: Rita Corado on 11-07-2023 Sodium [Moles/Vol] 137 mmol/L Normal 136-145 [facility] Comment on above: Performed By: #### H EPATIC, LIPASE, BMP, DIFF CBC #### [address] Specific gravity Test strip (U) [Rel density]Ordered By: Rita Corado on 11-07-2023 Specific gravity (U) [Rel density] 1.023 1.001-1.03 0 [facility] Urea nitrogen [Mass/volume] in Serum or PlasmaOrdered By: Rita Corado on 11-07-2023 Urea nitrogen [Mass/Vol] 18 mg/dL Normal 7-25 [facility] Comment on above: Performed By: #### H EPATIC, LIPASE, BMP, DIFF CBC #### [address] Urinalysison 11-07-2023 Bilirubin,Urine Negative Normal Negative [facility] Comment on above: Order Comment: Name Collection Type:: Clean-Voided Midstream Performed By: #### U A #### [address] Glucose Ql (U) Normal Normal Normal [facility] Comment on above: Order Comment: Name Collection Type:: Clean-Voided Midstream Performed By: #### U A #### [place] [address] [place] Nitrite,Urine Negative Normal Negative [facility] Comment on above: Order Comment: Name Collection Type:: Clean-Voided Midstream Performed By: #### U A #### [place] [address] [place] Occult Blood,Urine Negative Normal Negative [facility] Comment on above: Order Comment: Name Collection Type:: Clean-Voided Midstream Result Comment: PERF ORMED BY: [place] [address] PATHOLOGIST DRUM SAW OPERATOR JORGE LUIS RUELAS M.D. Performed By: #### U A #### [place] [address] [place] Protein,Urine Negative Normal Negative [facility] Comment on above: Order Comment: Name Collection Type:: Clean-Voided Midstream Performed By: #### U A #### [address] Specificy [place],Urine 1.023 Normal 1.001-1.03 0 [facility] Comment on above: Order Comment: Name Collection Type:: Clean-Voided Midstream Performed By: #### U A #### [address] Urobilinogen,Urine Normal Normal Normal [facility] Comment on above: Order Comment: Name Collection Type:: Clean-Voided Midstream Performed By: #### U A #### [address] Urine appearanceOrdered By: Rita Corado on 11-07-2023 Appearance (U) Clear Normal Clear [facility] Comment on above: Order Comment: Name Collection Type:: Clean-Voided Midstream Performed By: #### U A #### [address] Urobilinogen Test strip (U) [Mass/Vol]Ordered By: Rita Corado on 11-07-2023 Urobilinogen (U) [Mass/Vol] Normal mg/dL Normal [facility] pH of Urine by Test stripOrd ered By: Rita Corado on 11-07-2023 pH (U) 6.0 [pH] Normal 5.0-9.0 [facility] Comment on above: Order Comment: Name Collection Type:: Clean-Voided Midstream Performed By: #### U A #### [facility] [place] [address] ECG 12 lead ECGon 11-06-2023 ECG 12 lead ECG [facility] [place] [address] [place] [address] Electrocardiograph Report Signed Patient: Angelika Muir MR#: [id number] : 1940 Acct:[id number] Age/Sex: 83 / F ADM Date: 11/06/23 Loc: ER Room: Type: [facility] ER Attending Dr: Ordering Provider: Rita Corado [...] By Rita Corado DO 0354 Normal [facility] COMPREHENSIVE METABOLIC PANE Iam 05-24-2023 Albumin [Mass/Vol] 3.6 g/dL Normal 3.2-5.3 [facility] Comment on above: Performed By: #### C , 3016-3 #### [facility] ([id number]) [address] [place] [address] ALP [Catalytic activity/Vol] 103 U/L Normal 39-130 [facility] Comment on above: Performed By: #### C MELO, 3015-3 #### [facility] ([id number]) [address], [address] [place] [address] ALT [Catalytic activity/Vol] 10 U/L Normal 0-31 [facility] Comment on above: Performed By: #### C MELO, 3015-3 #### [facility] ([id number]) [address], [address] [place] [address] Anion gap [Moles/Vol] 9 mmol/L Normal 5-15 [facility] Comment on above: Performed By: #### C MELO, 3015-3 #### [facility] ([id number]) [address], [address] [place] [address] AST [Catalytic activity/Vol] 16 U/L Normal 0-41 [facility] Comment on above: Performed By: #### Estefani ALEJO, 3015-3 #### [facility] ([id number]) [address], [address] [place] [address] Bilirubin [Mass/Vol] 0.4 mg/dL Normal 0.3-1.2 [facility] Comment on above: Performed By: #### Estefani ALEJO, 3015-3 #### [facility] ([id number]) [address], [address] [place] [address] Calcium [Mass/Vol] 9.5 mg/dL Normal 8.5-10.5 [facility] Comment on above: Performed By: #### C MELO, 3015-3 #### [facility] ([id number]) [address], [address] [place] [address] Chloride [Moles/Vol] 105 mmol/L Normal 98-109 [facility] Comment on above: Performed By: #### Estefani ALEJO, 3015-3 #### [facility] ([id number]) [address], [address] [place] [address] CO2 [Moles/Vol] 31 mmol/L Normal 22-32 [facility] Comment on above: Performed By: #### Estefani ALEJO, 3015-3 #### [facility] ([id number]) [address], [address] [place] [address] Creatinine [Mass/Vol] 0.99 mg/dL Normal 0.40-1.00 [facility] Comment on above: Result Comment: METH OD TRACEABLE TO IDMS STANDARD Performed By: #### Estefani ALEJO, 3015-3 #### [facility] ([id number]) [address], [facility] [address] [place] [address] GFR/1.73 sq M.predicted among non-blacks MDRD (S/P/Bld) [Vol rate/Area] 56 mL/min/{1.73_m2} Low >59 [facility] Comment on above: Result Comment: Reported eGFR is based on the CKD-EPI 2020 equation that does not use a race coefficient. Performed By: #### Estefani ALEJO, 3015-3 #### [facility] ([id number]) [address], [address] [place] [address] Glucose [Mass/Vol] 103 mg/dL High 65-99 [facility] Comment on above: Performed By: #### Estefani ALEJO, 3015-3 #### [facility] ([id number]) [address] [address] [place] [address] Potassium [Moles/Vol] 3.9 mmol/L Normal 3.5-5.0 [facility] Comment on above: Performed By: #### Estefani ALEJO, 3015-3 #### [facility] ([id number]) [address], [address] [place] [address] Protein [Mass/Vol] 7.1 g/dL Normal 6.0-8.0 [facility] Comment on above: Performed By: #### Estefani ALEJO, 3015-3 #### [facility] ([id number]) [address], [address] [place] [address] Sodium [Moles/Vol] 145 mmol/L Normal 134-146 [facility] Comment on above: Performed By: #### Estefani ALEJO, 6-3 #### [facility] ([id number]) [address] [address] [place] [address] Urea nitrogen [Mass/Vol] 18 mg/dL Normal 5-27 [facility] Comment on above: Performed By: #### Estefani ALEJO, 3015-3 #### [facility] ([id number]) [address] [address] [place] [address] HGB A1C (GLYCO-HGB)on 2023 Glucose [Mass/Vol] 126 mg/dL Normal [facility] Comment on above: Performed By: #### Estefani ALEJO, 3015-3 #### [facility] ([id number]) [address] [address] [place] [address] HbA1c (Bld) [Mass fraction] 6.0 % High 4.4-5.6 [facility] Comment on above: Result Comment: NOTE ADA Guidelines Result HgbA1c Normal : less than 5.7 % Prediabetes : 5.7 % to 6.4 % Diabetes : > 6.4 % Use with caution in patients with abnormal hemoglobin variants as the half-life of red blood cells and in vivo glycation rates are affected. Performed By: #### Estefani ALEJO, 6-3 #### [facility] ([id number]) [address] [address] [place] [address] TSH Qnon 05-24-2023 TSH 2.13 uIU/mL Normal 0.49-4.67 [facility] Comment on above: Performed By: #### Estefani ALEJO, 6-3 #### [facility] ([id number], [address] [place] [address] CULTURE URINEon 05-28-2022 CULTURE URINE Isolate 1 [...] F Trimethoprim/Sulfamethoxazol e <=20 S F Normal [facility] Comment on above: Performed By: #### U ACSIND #### [facility] [address] [place] [address] Dr. Megan Caballero ALDOLASEon 05-27-2022 Aldolase 5.8 U/L Normal 3.3-10.3 [facility] Comment on above: Performed By: #### L ACT #### [facility] [address] [place] [address] Dr. Megan Caballero TAO DIRECTon 05-27-2022 TAO Direct Negative Normal Negative [facility] Comment on above: Performed By: #### L ACT #### [facility] [address] [place] [address] Dr. Megan Caballero RHEUMATOID FACTORon 05-28-19 23 RA Latex Turbid. 28.2 IU/mL Critically high <14.0 [facility] Comment on above: Performed By: #### L ACT #### [facility] [address] [place] [address] Dr. Megan Caballero CBC AUTO DIFFon 05-26-2022 BASO # 0.0 103/ul Normal 0.0-0.1 [facility] Comment on above: Performed By: #### L ACT #### [facility] [address] [place] [address] Dr. Megan Caballero Basophils/100 WBC (Bld) 0.1 % Critically low 0.2-2.0 [facility] Comment on above: Performed By: #### L ACT #### [facility] [address] [place] [address] Dr. Megan Caballero EO # 0.0 103/ul Normal 0.0-0.7 [facility] Comment on above: Performed By: #### L ACT #### [facility] [address] [place] [address] Dr. Megan Caballero Eosinophils/100 WBC (Bld) 0.0 % Critically low 0.9-7.0 [facility] Comment on above: Performed By: #### L ACT #### [facility] [address] [place] [address] Dr. Megan Caballero Erythrocyte distribution width (RBC) [Ratio] 13.4 % Normal 11.0-15.0 [facility] Comment on above: Performed By: #### L ACT #### [facility] [address] [place] [address] Dr. Megan Caballero Hematocrit (Bld) [Volume fraction] 33.4 % Critically low 36.0-48.0 [facility] Comment on above: Performed By: #### L ACT #### [facility] [address] [place] [address] Dr. Megan Caballero Hemoglobin (Bld) [Mass/Vol] 11.0 g/dL Critically low 12.0-16.0 [facility] Comment on above: Performed By: #### L ACT #### [facility] [address] [place] [address] Dr. Megan Caballero IG # 0.12 10e3/ul Critically high 0.00-0.03 [facility] Comment on above: Performed By: #### L ACT #### [facility] [address] [place] [address] Dr. Megan Caballero IG % 0.9 % Critically high 0.0-0.5 [facility] Comment on above: Performed By: #### L ACT #### [facility] [address] [place] [address] Dr. Megan Caballero LYMPH # 0.8 103/ul Critically low 1.2-3.8 [facility] Comment on above: Performed By: #### L ACT #### [facility] [address] [place] [address] Dr. Megan Caballero Lymphocytes/100 WBC (Bld) 5.7 % Critically low 20.5-60.0 [facility] Comment on above: Performed By: #### L ACT #### [facility] [address] [place] [address] Dr. Megan Caballero MANUAL DIFF REQ NO Normal [facility] Comment on above: Performed By: #### L ACT #### [facility] [address] [place] [address] Dr. Megan Caballero MCH (RBC) [Entitic mass] 29.2 pg Normal 26.7-34.0 [facility] Comment on above: Performed By: #### L ACT #### [facility] [address] [place] [address] Dr. Megan Caballero MCHC (RBC) [Mass/Vol] 32.9 g/dL Normal 29.9-35.2 [facility] Comment on above: Performed By: #### L ACT #### [facility] [address] [place] [address] Dr. Megan Caballero MCV (RBC) [Entitic vol] 88.6 fL Normal 81.0-99.0 [facility] Comment on above: Performed By: #### L ACT #### [facility] [address] [place] [address] Dr. Megan Caballero MONO # 1.1 103/ul Critically high 0.3-0.8 [facility] Comment on above: Performed By: #### L ACT #### [facility] [address] [place] [address] Dr. Megan Caballero Monocytes/100 WBC (Bld) 7.9 % Normal 1.7-12.0 [facility] Comment on above: Performed By: #### L ACT #### [facility] [address] [place] [address] Dr. Megan Caballero NEUT # 11.9 103/ul Critically high 1.4-6.5 [facility] Comment on above: Performed By: #### L ACT #### [facility] [address] [address] [address] Megan Caballero Neutrophils/100 WBC (Bld) 85.4 % Critically high 43.0-75.0 [facility] Comment on above: Performed By: #### L ACT #### [facility] [address] [address] [address] Megan Caballero Platelet mean volume (Bld) [Entitic vol] 10.2 fL Normal 9.5-13.5 [facility] Comment on above: Performed By: #### L ACT #### [facility] [address] [place] [address] Dr. Megan Caballero PLT 176 103/ul Normal 150-450 [facility] Comment on above: Performed By: #### L ACT #### [facility] [address] [place] [address] Dr. Megan Caballero RBC 3.77 106/ul Critically low 4.20-5.40 [facility] Comment on above: Performed By: #### L ACT #### [facility] [address] [place] [address] Dr. Megan Caballero WBC 13.9 103/ul Critically high 4.0-11.0 [facility] Comment on above: Performed By: #### L ACT #### [facility] [address] [place] [address] Dr. Megan Caabllero CULTURE BLOODon 05-26-2022 Microscopic examination of blood, culture Culture Observations: NO GROWTH AT 5 DAYS. Normal [facility] Comment on above: Performed By: #### U ACSIND #### [facility] [address] [place] [address] Dr. Megan Caballero Microscopic examination of blood, culture Culture Observations: NO GROWTH AT 5 DAYS. Normal [facility] Comment on above: Performed By: #### U ACSIND #### [facility] [address] [place] [address] Dr. Megan Caballero LACTATE/LACTIC ACIDon 2022 Lactate [Moles/Vol] 1.1 mmol/L Normal 0.4-1.9 [facility] Comment on above: Performed By: #### L ACT #### [facility] [address] [place] [address] Dr. Megan Caballero LIVER PROFILEon 05-26-2022 Albumin [Mass/Vol] 2.7 g/dL Critically low 3.4-5.0 [facility] Comment on above: Performed By: #### L ACT #### [facility] [address] [place] [address] Dr. Megan Caballero Albumin/Globulin [Mass ratio] 0.6 {ratio} Normal [facility] Comment on above: Performed By: #### L ACT #### [facility] [address] [place] [address] Dr. Megan Caballero ALP [Catalytic activity/Vol] 107 U/L Normal 46-116 [facility] Comment on above: Performed By: #### L ACT #### [facility] [address] [place] [address] Dr. Megan Caballero ALT [Catalytic activity/Vol] 12 U/L Critically low 14-59 [facility] Comment on above: Performed By: #### L ACT #### [facility] [address] [place] [address] Dr. Megan Caballero AST [Catalytic activity/Vol] 16 U/L Normal 15-37 [facility] Comment on above: Performed By: #### L ACT #### [facility] [address] [place] [address] Dr. Megan Caballero BILI, CONJUGATED 0.1 mg/dL Normal 0.0-0.2 [facility] Comment on above: Performed By: #### L ACT #### [facility] [address] [place] [address] Dr. Megan Caballero Bilirubin [Mass/Vol] 0.6 mg/dL Normal 0.2-1.0 [facility] Comment on above: Performed By: #### L ACT #### [facility] [address] [place] [address] Dr. Megan Caballero Globulin (S) [Mass/Vol] 4.2 g/dL Normal [facility] Comment on above: Performed By: #### L ACT #### [facility] [address] [address] [address] Megan Caballero Protein [Mass/Vol] 6.9 g/dL Normal 6.4-8.2 [facility] Comment on above: Performed By: #### L ACT #### [facility] [address] [address] [address] Megan Caballero MAGNESIUMon 05-26-2022 Magnesium [Mass/Vol] 1.9 mg/dL Normal 1.8-2.4 [facility] Comment on above: Performed By: #### M G #### [facility] [address] [address] [address] Megan Caballero NM BONE SC WH [...] IHSAN PEDROZA Date: 2022-05-26 15:25 Normal [facility] PROF 14(COMP METB)on 023 Albumin [Mass/Vol] 2.4 g/dL Critically low 3.4-5.0 Th e [facility] Comment on above: Performed By: #### L ACT #### [facility] [id number] Megan Caballero Albumin/Globulin [Mass ratio] 0.6 {ratio} Normal [facility] Comment on above: Performed By: #### L ACT #### [facility] [address] [place], [place] [address] Dr. Megan Caballero ALP [Catalytic activity/Vol] 92 U/L Normal 46-116 [facility] Comment on above: Performed By: #### L ACT #### [facility] [address] [address] [address] Megan Caballero ALT [Catalytic activity/Vol] 10 U/L Critically low 14-59 [facility] Comment on above: Performed By: #### L ACT #### [facility] [address] [address] [address] Megan Caballero Anion gap [Moles/Vol] 10.3 mmol/L Normal [facility] Comment on above: Performed By: #### L ACT #### [facility] [address] [address] [address] Megan Caballero AST [Catalytic activity/Vol] 14 U/L Critically low 15-37 [facility] Comment on above: Performed By: #### L ACT #### [facility] [address] [place] [address] Dr. Megan Caballero Bilirubin [Mass/Vol] 0.5 mg/dL Normal 0.2-1.0 [facility] Comment on above: Performed By: #### L ACT #### [facility] [address] [place] [address] Dr. Megan Caballero Calcium [Mass/Vol] 8.2 mg/dL Critically low 8.5-10.1 [facility] Comment on above: Performed By: #### L ACT #### [facility] [address] [place] [address] Dr. Megan Caballero Chloride [Moles/Vol] 104 mmol/L Normal 98-107 [facility] Comment on above: Performed By: #### L ACT #### [facility] [address] [address] [address] Megan Caballero CO2 [Moles/Vol] 28.2 mmol/L Normal 21.0-32.0 [facility] Comment on above: Performed By: #### L ACT #### [facility] [address] [place] [address] Dr. Megan Caballero Creatinine [Mass/Vol] 1.05 mg/dL Critically high 0.55-1.02 [facility] Comment on above: Performed By: #### L ACT #### [facility] [address] [address] [address] Megan Caballero EGFR-AF ETHIOPIAN >60 Normal >=60 [facility] Comment on above: Performed By: #### L ACT #### [facility] [address] [address] [address] Megan Caballero EGFR-NON AF ETHIOPIAN 50 mL/min/1.73m2 Critically low >=60 [facility] Comment on above: Performed By: #### L ACT #### [facility] [address] [address] [address] Megan Caballero Globulin (S) [Mass/Vol] 3.7 g/dL Normal [facility] Comment on above: Performed By: #### L ACT #### [facility] [address] [address] [address] Megan Caballero Glucose [Mass/Vol] 116 mg/dL Critically high 74-106 [facility] Comment on above: Performed By: #### L ACT #### [facility] [address] [address] [address] Megan Caballero Potassium [Moles/Vol] 3.5 mmol/L Normal 3.5-5.1 [facility] Comment on above: Performed By: #### L ACT #### [facility] [address] [address] [address] Megan Caballero Protein [Mass/Vol] 6.1 g/dL Critically low 6.4-8.2 [facility] Comment on above: Performed By: #### L ACT #### [facility] [address] [address] [address] Megan Caballero Sodium [Moles/Vol] 139 mmol/L Normal 136-145 [facility] Comment on above: Performed By: #### L ACT #### [facility] [address] [address] [address] Megan Caballero Urea nitrogen [Mass/Vol] 25.0 mg/dL Critically high 7.0-18.0 [facility] Comment on above: Performed By: #### L ACT #### [facility] [address] [place] [address] Dr. Megan Caballero Urea nitrogen/Creatinine [Mass ratio] 23.8 mg/mg Normal [facility] Comment on above: Performed By: #### L ACT #### [facility] [address] [place] [address] Dr. Megan Caballero PTTon 05-26-2022 aPTT Coag (Bld) [Time] 31.1 s Normal 22.3-36.2 [facility] Comment on above: Performed By: #### P TT #### [facility] [address] [place] [address] Dr. Megan Caballero UA RANDOMon 05-26-2022 Bilirubin Ql (U) Negative Normal NEGATIVE [facility] Comment on above: Performed By: #### U A #### [facility] [address] [place] [address] Dr. Megan Caballero Clarity (U) CLEAR Normal CLEAR [facility] Comment on above: Performed By: #### U A #### [facility] [address] [place] [address] Dr. Megan Caballero Color (U) LT. YELLOW Normal YELLOW [facility] Comment on above: Performed By: #### U A #### [facility] [address] [place] [address] Dr. Megan Caballero Glucose Ql (U) Negative Normal NEGATIVE [facility] Comment on above: Performed By: #### U A #### [facility] [address] [place] [address] Dr. Megan Caballero Hemoglobin Ql (U) MODERATE Abnormal NEGATIVE [facility] Comment on above: Performed By: #### U A #### [facility] [address] [place] [address] Dr. Megan Caballero Ketones Ql (U) Negative Normal NEGATIVE [facility] Comment on above: Performed By: #### U A #### [facility] [address] [place] [address] Dr. Megan Caballero LEUKOCYTES TRACE Abnormal NEGATIVE [facility] Comment on above: Performed By: #### U A #### [facility] [address] [place] [address] Dr. Megan Caballero Nitrite Ql (U) Negative Normal NEGATIVE [facility] Comment on above: Performed By: #### U A #### [facility] [address] [place] [address] Dr. Megan Caballero pH (U) 6.0 [pH] Normal 5-9 [facility] Comment on above: Performed By: #### U A #### [facility] [address] [place] [address] Dr. Megan Caballero SPEC GRAVITY 1.015 Normal 1.005-<=1. 025 [facility] Comment on above: Performed By: #### U A #### [facility] [address] [place] [address] Dr. Megan Caballero UA PROTEIN 30 mg/dl Abnormal NEGATIVE/ TRACE [facility] Comment on above: Performed By: #### U A #### [facility] [address] [place] [address] Dr. Megan Caballero Urobilinogen Qn (U) 0.2 {Renu'U}/dL Normal 0.2 - 1. 0 [facility] Comment on above: Performed By: #### U A #### [facility] [address] [place] [address] Dr. Megan Caballero XR CHEST 1 Von [...] Emphysema is suggested. Electronically authenticated by: ALVINO EBNITEZ Date: 2022-05-26 04:41 Normal [facility] CPKon 05-25-2022 CK [Catalytic activity/Vol] 73 U/L Normal 26-192 [facility] Comment on above: Performed By: #### U ACSIND #### [facility] [address] [place] [address] Dr. Megan Caballero CRPon 05-25-2022 CRP 11.9 mg/dL Critically high <=1.0 [facility] Comment on above: Performed By: #### C RP, URIC #### [facility] [address] [place] [address] Dr. Megan Caballero Covid-19 PCR ([facility])on SARS-CoV-2 (COVID-19) RNA YU+probe Ql (Unsp spec) Not detected Normal NOT DETECTED [facility] Comment on above: Result Comment: When [...] for this test is supported by the [employer] of Health and Human Service's declaration that [...] used). Performed By: #### U ACSIND #### [facility] [address] [address] [address] Megan Caballero SED RATE WESTERGRENon 2022 SED RATE 55 mm/hr Critically high <=30 [facility] Comment on above: Performed By: #### S EDR #### [facility] [address] [place] [address] Dr. Megan Caballero TSHon 05-25-2022 TSH 0.533 uIU/mL Normal 0.358-3.74 0 [facility] Comment on above: Performed By: #### T SH #### [facility] [address] [place] [address] Dr. Megan Caballero UA (CLEAN/CATCH) CAREER SERVICES ASSISTANT/MICRO I F IND.on 05-25-2022 Bilirubin Ql (U) Negative Normal NEGATIVE [facility] Comment on above: Performed By: #### U ACSIND #### [facility] [address] [place] [address] Dr. Megan Caballero Clarity (U) CLEAR Normal CLEAR [facility] Comment on above: Performed By: #### U ACSIND #### [facility] [address] [place] [address] Dr. Megan Caballero Color (U) LT. YELLOW Normal YELLOW [facility] Comment on above: Performed By: #### U ACSIND #### [facility] [address] [place] [address] Dr. Megan Caballero Glucose Ql (U) Negative Normal NEGATIVE [facility] Comment on above: Performed By: #### U ACSIND #### [facility] [address] [place] [address] Dr. Megan Caballero Hemoglobin Ql (U) TRACE-LYSED Abnormal NEGATIVE [facility] Comment on above: Performed By: #### U ACSIND #### [facility] [address] [place] [address] Dr. Megan Caballero Ketones Ql (U) Negative Normal NEGATIVE [facility] Comment on above: Performed By: #### U ACSIND #### [facility] [address] [place] [address] Dr. Megan Caballero LEUKOCYTES Negative Normal NEGATIVE [facility] Comment on above: Performed By: #### U ACSIND #### [facility] [address] [place] [address] Dr. Megan Caballero Nitrite Ql (U) Negative Normal NEGATIVE [facility] Comment on above: Performed By: #### U ACSIND #### [facility] [address] [place] [address] Dr. Megan Caballero pH (U) 6.5 [pH] Normal 5-9 [facility] Comment on above: Performed By: #### U ACSIND #### [facility] [address] [place] [address] Dr. Megan Caballero SPEC GRAVITY 1.020 Normal 1.005-<=1. 025 [facility] Comment on above: Performed By: #### U ACSIND #### [facility] [address] [place] [address] Dr. Megan Caballero UA PROTEIN Negative Normal NEGATIVE/ TRACE [facility] Comment on above: Performed By: #### U ACSIND #### [facility] [address] [place] [address] Dr. Megan Caballero UR MICRO IND NOT INDICATED Normal [facility] Comment on above: Performed By: #### U ACSIND #### [facility] [address] [place] [address] Dr. Megan Caballero Urobilinogen Qn (U) 0.2 {Renu'U}/dL Normal 0.2 - 1. 0 [facility] Comment on above: Performed By: #### U ACSIND #### [facility] [address] [place] [address] Dr. Megan Caballero URIC ACID SERUMon 05-25-2022 Urate [Mass/Vol] 4.3 mg/dL Normal 2.6-6.0 [facility] Comment on above: Performed By: #### C RP, URIC #### [facility] [address] [place] [address] Dr. Megan Caballero XR FEMUR RTon 05-25-2022 [...] JELANI MAR Date: 2022-05-24 23:28 Normal [facility] CBC W MANUAL DIFFon 05-25-19 23 ATYPICAL LYMPH # Normal [facility] Comment on above: Performed By: #### L ACT #### [facility] [address] [place] [address] Dr. Megan Caballero ATYPICAL LYMPH % Normal [facility] Comment on above: Performed By: #### L ACT #### [facility] [address] [place] [address] Dr. Megan Caballero BAND # 0.0 103/ul Normal 0.0-0.3 [facility] Comment on above: Performed By: #### L ACT #### [facility] [address] [place] [address] Dr. Megan Caballero BAND % 0 % Normal 0-5 [facility] Comment on above: Performed By: #### L ACT #### [facility] [address] [place] [address] Dr. Megan Caballero BASOM # 0.00 103/ul Normal 0.00-0.10 [facility] Comment on above: Performed By: #### L ACT #### [facility] [address] [place] [address] Dr. Megan Caballero BASOM % 0.0 % Critically low 0.2-2.0 [facility] Comment on above: Performed By: #### L ACT #### [facility] [address] [place] [address] Dr. Megan Caballero BLAST # Normal [facility] Comment on above: Performed By: #### L ACT #### [facility] [address] [place] [address] Dr. Megan Caballero BLAST % Normal [facility] Comment on above: Performed By: #### L ACT #### [facility] [address] [place] [address] Dr. Megan Caballero CORRECTED WBC Normal 4.0-11.0 [facility] Comment on above: Performed By: #### L ACT #### [facility] [address] [place] [address] Dr. Megan Caballero EOS # 0.00 103/ul Normal 0.00-0.70 [facility] Comment on above: Performed By: #### L ACT #### [facility] [address] [place] [address] Dr. Megan Caballero EOS% 0.0 % Critically low 0.9-7.0 [facility] Comment on above: Performed By: #### L ACT #### [facility] [address] [place] [address] Dr. Megan Caballero HCT 37.2 % Normal 36.0-48.0 [facility] Comment on above: Performed By: #### L ACT #### [facility] [address] [place] [address] Dr. Megan Caballero HGB 12.2 g/dl Normal 12.0-16.0 [facility] Comment on above: Performed By: #### L ACT #### [facility] [address] [place] [address] Dr. Megan Caballero LYMPHM # 0.23 103/ul Critically low 1.20-3.80 [facility] Comment on above: Performed By: #### L ACT #### [facility] [address] [place] [address] Dr. Megan Caballero LYMPHM% 2.0 % Critically low 20.5-60.0 [facility] Comment on above: Performed By: #### L ACT #### [facility] [address] [place] [address] Dr. Megan Caballero MCH 28.6 pg Normal 26.7-34.0 [facility] Comment on above: Performed By: #### L ACT #### [facility] [address] [place] [address] Dr. Megan Caballero MCHC 32.8 g/dl Normal 29.9-35.2 [facility] Comment on above: Performed By: #### L ACT #### [facility] [address] [place] [address] Dr. Megan Caballero MCV 87.1 fL Normal 81.0-99.0 [facility] Comment on above: Performed By: #### L ACT #### [facility] [address] [place] [address] Dr. Megan Caballero METAMYELOCYTE # Normal [facility] Comment on above: Performed By: #### L ACT #### [facility] [address] [place] [address] Dr. Megan Caballero METAMYELOCYTE % Normal [facility] Comment on above: Performed By: #### L ACT #### [facility] [address] [place] [address] Dr. Megan Caballero MONOM# 0.23 103/ul Critically low 0.30-0.80 [facility] Comment on above: Performed By: #### L ACT #### [facility] [address] [place] [address] Dr. Megan Caballero MONOM% 2.0 % Normal 1.7-12.0 [facility] Comment on above: Performed By: #### L ACT #### [facility] [address] [place] [address] Dr. Megan Caballero MPV 9.5 fL Normal 9.5-13.5 [facility] Comment on above: Performed By: #### L ACT #### [facility] [address] [place] [address] Dr. Megan Caballero MYELOCYTE # Normal [facility] Comment on above: Performed By: #### L ACT #### [facility] [address] [place] [address] Dr. Megan Caballero MYELOCYTE % Normal [facility] Comment on above: Performed By: #### L ACT #### [facility] [address] [place] [address] Dr. Megan Caballero NRBC Normal [facility] Comment on above: Performed By: #### L ACT #### [facility] [address] [place] [address] Dr. Megan Caballero PLT 197 103/ul Normal 150-450 [facility] Comment on above: Performed By: #### L ACT #### [facility] [address] [place] [address] Dr. Megan Caballero RBC 4.27 106/ul Normal 4.20-5.40 [facility] Comment on above: Performed By: #### L ACT #### [facility] [address] [place] [address] Dr. Megan Caballero RDW 13.1 % Normal 11.0-15.0 [facility] Comment on above: Performed By: #### L ACT #### [facility] [address], [place] [address] Dr. Megan Caballero SEG # 10.85 103/ul Critically high 1.40-6.50 [facility] Comment on above: Performed By: #### L ACT #### [facility] [address] [place], [place] [address] Dr. Megan Caballero SEG % 96.0 % Critically high 43.0-75.0 [facility] Comment on above: Performed By: #### L ACT #### [facility] [address], [place] [address] Dr. Megan Caballero WBC 11.3 103/ul Critically high 4.0-11.0 [facility] Comment on above: Performed By: #### L ACT #### [facility] [address] [address] [address] Megan Caballero CRPon 05-24-2022 CRP 1.7 mg/dL Critically high <=1.0 [facility] Comment on above: Performed By: #### L ACT #### [facility] [address] [address] [address] PELVIS WO CONon [...] of iterative reconstruction technique. FINDINGS: The initial administrative office assistant views demonstrate bilateral total hip prostheses. The [...] JELANI MAR Date: 2022-05-24 21:51 Normal [facility] PROF CHEM 8 (BAS METB)on Anion gap [Moles/Vol] 12.6 mmol/L Normal [facility] Comment on above: Performed By: #### L ACT #### [facility] [address] [address] [address] Megan Caballero Calcium [Mass/Vol] 8.6 mg/dL Normal 8.5-10.1 [facility] Comment on above: Performed By: #### L ACT #### [facility] [address] [address] [address] Megan Caballero Chloride [Moles/Vol] 102 mmol/L Normal 98-107 [facility] Comment on above: Performed By: #### L ACT #### [facility] [address] [address] [address] Megan Caballreo CO2 [Moles/Vol] 28.6 mmol/L Normal 21.0-32.0 [facility] Comment on above: Performed By: #### L ACT #### [facility] [address] [address] [address] Megan Caballero Creatinine [Mass/Vol] 0.73 mg/dL Normal 0.55-1.02 [facility] Comment on above: Performed By: #### L ACT #### [facility] [address] [address] [address] Megan Caballero EGFR-AF ETHIOPIAN >60 Normal >=60 [facility] Comment on above: Performed By: #### L ACT #### [facility] [address] [address] [address] Megan Caballero EGFR-NON AF ETHIOPIAN >60 Normal >=60 [facility] Comment on above: Performed By: #### L ACT #### [facility] [address] [address] [address] Megan Caballero Glucose [Mass/Vol] 121 mg/dL Critically high 74-106 [facility] Comment on above: Performed By: #### L ACT #### [facility] [address] [address] [address] Megan Caballero Potassium [Moles/Vol] 3.2 mmol/L Critically low 3.5-5.1 [facility] Comment on above: Performed By: #### L ACT #### [facility] [address] [address] [address] Megan Caballero Sodium [Moles/Vol] 140 mmol/L Normal 136-145 [facility] Comment on above: Performed By: #### L ACT #### [facility] [address] [address] [address] Megan Caballero Urea nitrogen [Mass/Vol] 15.0 mg/dL Normal 7.0-18.0 [facility] Comment on above: Performed By: #### L ACT #### [facility] [address] [address] [address] Megan Caballero Urea nitrogen/Creatinine [Mass ratio] 20.5 mg/mg Normal [facility] Comment on above: Performed By: #### L ACT #### [facility] [address] [address] [address] Megan Caballero SED RATE [facility] 2022 SED RATE 54 mm/hr Critically high <=30 [facility] Comment on above: Performed By: #### S EDR #### [facility] [address] [place] [address] Dr. Megan Caballero CNOVon 05-30-2020 CNOV Office Visit (UROLAV ) ANGELIKA MUIR ([id number]) 1940 [address] [employer]* Date Time Provider Department 05/30/20 6:00 PM NEGRO POMPA During your visit today, we recorded the following information about you: Pulse Blood pressure Weight 101/minute 141/67 98.4 kg Negro Pompa MD 05/30/2020 6:55 PM Signed [facility] [...] Via bladder scan. Referring Provider: NEGRO POMPA [[id number]] Allergies As of Date: 05/30/2020 Noted Allergy [...] 01/10/2014 Visit Notes: >> Kell Arauz MA [facility] May 30, 2020 6:31 PM Status: Signed PVR = 71 ml Via bladder scan. Medications Discontinued During This Encounter Prescriptions - solifenacin 10 mg tablet (Discontinued) Take 5 mg by mouth once daily. Encounter Status:Closed by NEGRO POMPA MD on 05/30/20 [facility] CNCOon 05-28-2020 CNCO Letter Text [facility] ANES POSTPROC EVALon 021 ANES POSTPROC EVAL HNO ID: [id number] Author: Ihsan Gamino Service: Anesthesiology Author Type: Anesthesiologist Type: Anesthesia Postprocedure Evaluation Filed: 05/01/2020 4:49 PM Note Text: POST ANESTHESIA EVALUATION NOTE : 1940 Procedure Summary Date: 05/01/20 Room / Location: [address] / [facility] Anesthesia Start: 1504 Anesthesia Stop: [...] May 01, 2020 TIME: 4:49 PM CSN: [id number] [facility] ANES PRE-OPon 05-01-2020 ANES PRE-OP HNO ID: [id number] Author: Ihsan Gamino Service: Anesthesiology Author Type: [...] May 01, 2020 TIME: 3:53 PM CSN: [id number] [facility] HISTORY PHYSICALon HISTORY PHYSICAL HNO ID: [id number] Author: Negro Pompa Service: Urology Author Type: [...] Pompa MD May 01, 2020 1:22 PM [facility] OPERATIVE NOon 05-01-2020 OPERATIVE NO HNO ID: [id number] Author: Negro Peña Service: Urology Author Type: Physician Type: Operative Report Filed: 05/01/2020 5:00 PM Note Text: OPERATIVE/PROCEDURE REPORT LOG ID: [id number] SURGERY/PROCEDURE DATE: 05/01/2020 INCISION/PROCEDURE START TIME: 3:28 PM INCISION CLOSE/PROCEDURE END TIME: 4:05 PM SURGEON(S)/PROCEDURALIST(S) AND PEDIATRIC DENTIST(S): Surgeon(s) and Role: * Negro Peña - Primary No Additional Staff SURGERY/PROCEDURE(S): Incision [...] TIME: 4:45 PM PAGER/CONTACT #: Normal [facility] SURGICAL PATHOLOGYon 021 SURGICAL PATHOLOGY Specimen originated from [facility] Specimen #: [id number] Submitting Physician: NEGRO POMPA FINAL DIAGNOSIS Vaginal [...] DOUG/evens 05/02/2020 Gross examination performed at [facility], [address] [address] Date of Report: 05/06/2020 Date of Procedure: 05/01/2020 Date of Receipt: 05/02/2020 Submitted by: NEGRO POMPA Location: [facility] Diagnostic interpretation performed at [facility] [place] [address]. CLIA Number: [id number] [facility] HOSPon 04-19-2020 HOSP Patient:Nany Muir MRN: [...] notes entered within the past 30 days [facility] Provider Letteron 11-21-2019 Provider Letter (Inserted Image. Patricia ble to display) November 21, 2019 ANGELIKA MUIR Judy [address] [place] [id number] ANGELIKA MUIR Judy 1940 Dear Angelika, You [...] understanding. Sincerely, [facility]/Dr De La Cruz [facility] Ambulatory Clinical Summaryo n 10-27-2019 Ambulatory Clinical Summary {[id number] [facility] Patient Educationon 10-24-19 20 Patient Education [...] bladder worse. Your healthcare provider or a manager regional can explain ways to change what you [...] Document Reviewed: 01/02/2010 ExitCare? Patient Information ?2013 [employer]. [facility] Urology Office/Clinic Noteon 10-24-2019 Urology Office/Clinic [...] in 1 month. Ordered: PVR urine/bladder capacity/[place] 59568 Urnls Dip Stick Auto w/o Microscopy POC 87045 2. Other urethral stricture, female (N35.82: Other [...] [facility] [address], [place] [address]- Additional Instructions: w/ PVR Patient Education Overactive [...] Protein Urine Dipstick: Negative (10/24/19 14:03:00) Specific [place] Urine Dipstick: 1.025 (10/24/19 14:03:00) Urine Appearance Urine Dipstick: Clear (10/24/19 14:03:00) Urine Color Urine Dipstick: Yellow (10/24/19 14:03:00) Urobilinogen Urine Dipstick: Normal 0.2-1 EU/dl (10/24/19 14:03:00) pH Urine Dipstick: 5.5 (10/24/19 14:03:00) Diagnostic Results PVR was reviewed at 85 cc. Urinalysis shows no infection. Normal [facility] Comment on above: Result Comment: Elec tronically Signed By: Jono Faust MD, Bandar Devine\.br\Date and Time Signed: 10/24/19 14:59 EDT\.br\Electronically Co-Signed By: Lida Ybarra MA\.br\Date and Time Co-Signed: 08/04/20 14:56 EDT Ambulatory Clinical Summaryo n 08-24-2019 Ambulatory Clinical Summary {[id number]}CD:[id number] Normal [facility] Reminderson 04-24-2019 Reminders - From: Kristen [...] may need scheduled for Cysto/ TVT Normal [facility] Coding Summary.on 04-21-2019 Coding Summary. CODING DATE: 020 FINAL [facility] STATUS: Home (Routine DC) PAYOR: Medicare [...] Garces Date Saved: 04/21/2019 01:56 pm Normal [facility] Patient Summaryon 02-02-2019 Patient Summary PATIENT DISCHARGE INSTRUCTIONS If you are having an emergency and are not able to reach your physician, CALL 911 or go to the nearest emergency room and take this document with you. David Rosales [facility] 02/02/19 09:32 [address] [place]. [address] PATIENT INFORMATION -- Name: ANGELIKA MUIR Address: [address] [place] [id number] Age: 78 Years Phone: [phone] : 1940 12:00 MRN: [facility])-[id number] Sex: Female Race: White Ethnicity: Not Hispan/Lat Admitted From: Clinic or [facility] Medical Service: Orthopedic Surgery Nurse Unit/Bed: (CO) 2NAN 0219-01 Admit Date: 01/30/2019 05:59 PCP: Eduardo Rose MD PHYSICIANS INVOLVED WITH CARE Attending Physicians: [place] S[place]EL , Amrik Sutton - Orthopaedic Surg Admitting Physician: Amrik Vickers MD - Orthopaedic Surg Primary Care Physician:Eduardo Rose MD,Internal Medicine, - Consults: Elbert Gleason [facility] - [facility] FOLLOW-UP APPOINTMENTS: Provider: Specialty: Address: Date: Amrik Vickers MD Orthopaedic Surg [address] [facility] [address] (1) Six Weeks Comment: Call for an Appointment Provider: Specialty: Address: Date: Eduardo Rose MD Internal Medicine [address] [place] [phone] (1) Follow-up as needed Provider: Specialty: Address: Date: SNF: [facility] [phone] Follow-up as needed ALLERGIES: No Known Medication [...] doses are changed, or new medications (including mnqg-sqv-rtmhtle products) are added. Ask your doctor if [...] extended release) 1 Tab(s) By Mouth Bedtime., LitB' Comment potassium chloride (potassium chloride 20 mEq [...] Decisions Type: Living Will, Medical Power of Makeup Artistry Instructor Copy of Advance Directive/Health Care Decisions on Chart: Patient/Family asked to provide copy SUICIDE HOTLINE: Your mental and emotional well-being are important. If you are in a mental health crisis, or having thoughts of suicide, please call the nationwide suicide hotline, anytime day or night, at 3-466-571-QTJV. Important information about accessing your health information through the [facility] patient portal If you initiated the self-registration process for [facility] during your stay, please check your personal email for an invitation to enroll in [employer] and complete the steps outlined in the email. If you would prefer to enroll while in the hospital, ask a member of your care team. We would be happy to assist you. If you have already enrolled in [facility], go to [email or web address] to login and access your health information. Thank you for choosing [facility]. PATIENT EDUCATION Fall Prevention in the Home [...] wet floors. ???Place frequently used items in tlig-zp-oorkv places. ???If you need to reach for something above you, use a sturdy step stool that has a grab bar. ???Keep electrical cables out of the way. ???Do not use floor dominican or wax that makes floors slippery. If [...] include working with a physical therapist or strainer cleaner to improve your strength, balance, and endurance. This information is not intended to replace advice given to you by your health care provider. Make sure you discuss any questions you have with your health care provider. Document Released: 02/26/2003 Document Revised: 07/23/2015 Document Reviewed: 04/12/2015 [employer] Interactive Patient Education ?2016 [employer] Incentive Spirometer An incentive spirometer is [...] 07/19/2007 Document Revised: 03/29/2015 Document Reviewed: 10/15/2014 ElseActiance Interactive Patient Education ?2016 [employer]. Pain Medicine Instructions HOW CAN PAIN [...] liver damage. Acetaminophen is found in many tkjt-vxf-shpkaev (OTC) and prescription medicines. If you are [...] 06/14/2001 Document Revised: 07/23/2015 Document Reviewed: 01/10/2015 [employer] Interactive Patient Education ?2016 [employer] Preventing Constipation After Surgery Constipation is [...] a bowel movement. ???Having hard, dry, or bjaxof-ckzt-wtnwbd stools. ???Feeling full or bloated. ???Having pain in the lower abdomen. ???Not feeling relief after having a bowel movement. HOME CARE INSTRUCTIONS Diet ???Eat foods that have a lot of fiber. These include fruits, vegetables, whole grains, and beans. Limit foods high in fat and processed sugars. These include mauritian fries, hamburgers, cookies, and candy. ???Take a [...] softener, laxative, or fiber supplement. ???Only take nlga-jhp-bufmaak or prescription medicines as directed by your [...] 07/03/2013 Document Revised: 03/29/2015 Document Reviewed: 07/03/2013 [employer] Interactive Patient Education ?2015 [employer] Venous Thromboembolism, Prevention A venous thromboembolism [...] Document Reviewed: 07/03/2015 Elsevier Interactive Patient Education ?2015 Elsevier Inc. VIRUSES OR BACTERIA: WHAT'S GOT YOU [...] to Patient Clinician Signature __ Date/Time Normal [facility] Basic Metabolic Panelon 11- Calcium [Mass/Vol] 8.4 mg/dL Low 8.5-10.6 [facility] Chloride [Moles/Vol] 105 mmol/L Normal 98-107 [facility] CO2 [Moles/Vol] 32 mmol/L Normal 21-32 [facility] Creatinine [Mass/Vol] 0.77 mg/dL Normal 0.55-1.02 [facility] Glucose [Mass/Vol] 108 mg/dL High 70-99 [facility] Potassium [Moles/Vol] 4.1 mmol/L Normal 3.5-5.1 [facility] Sodium [Moles/Vol] 141 mmol/L Normal 136-145 [facility] Urea nitrogen (BldV) [Mass/Vol] 20 mg/dL High 7.0-18.0 [facility] Urea nitrogen/Creatinine [Mass ratio] 26 mg/mg Normal [facility] Basic Metabolic Panelon 01-20 Calcium [Mass/Vol] 8.4 mg/dL Low 8.5-10.6 [facility] Chloride [Moles/Vol] 105 mmol/L Normal 98-107 [facility] CO2 [Moles/Vol] 31 mmol/L Normal 21-32 [facility] Creatinine [Mass/Vol] 0.86 mg/dL Normal 0.55-1.02 [facility] Glucose [Mass/Vol] 101 mg/dL High 70-99 [facility] Potassium [Moles/Vol] 4.1 mmol/L Normal 3.5-5.1 [facility] Sodium [Moles/Vol] 140 mmol/L Normal 136-145 [facility] Urea nitrogen (BldV) [Mass/Vol] 21 mg/dL High 7.0-18.0 [facility] Urea nitrogen/Creatinine [Mass ratio] 24 mg/mg Normal [facility] Anesthesia Recordon 01-31-20 Anesthesia Record Patient: TRAN MUIR MRN: [id number] Age: 78 years Sex: Female : 1940 Associated Diagnoses: None Author: Nadine Barrera MD Procedure Time Out [place] Protocol: patient identity verified, site verified, side verified, procedure to be done verified, patient position verified. REGIONAL ANESTHESIA PROCEDURE Procedure date and begin time: See nurses notes. Procedure date and end time: See nurses notes. Performed by: Nadine Barrera MD. Assisted by: no shampoo assistant. Informed consent: signed by patient. Technique: [...] Diagnosis: M25.561 M17.11 Knee Pain . Normal [facility] Anesthesia Record Patient: TRAN MUIR MRN: [id number] Age: 78 years Sex: Female : 1940 Associated Diagnoses: None Author: Nadine Barrera MD Procedure Time Out [place] Protocol: patient identity verified, site verified, side verified, procedure to be done verified, patient position verified. REGIONAL ANESTHESIA PROCEDURE Procedure date and begin time: See nurses notes. Procedure date and end time: See nurses notes. Performed by: Nadine Barrera MD. Assisted by: no shampoo assistant. Informed consent: signed by patient. Technique: [...] M25.561 M17.11 Knee Pain OA . Normal [facility] Basic Metabolic Panelon 01-20 Calcium [Mass/Vol] 9.0 mg/dL Normal 8.5-10.6 [facility] Chloride [Moles/Vol] 106 mmol/L Normal 98-107 [facility] CO2 [Moles/Vol] 29 mmol/L Normal 21-32 [facility] Creatinine [Mass/Vol] 0.84 mg/dL Normal 0.55-1.02 [facility] Glucose [Mass/Vol] 105 mg/dL High 70-99 [facility] Potassium [Moles/Vol] 3.7 mmol/L Normal 3.5-5.1 [facility] Sodium [Moles/Vol] 143 mmol/L Normal 136-145 [facility] Urea nitrogen (BldV) [Mass/Vol] 23 mg/dL High 7.0-18.0 [facility] Urea nitrogen/Creatinine [Mass ratio] 27 mg/mg Normal [facility] OR Nursingon 01-30-2019 OR Nursing Normal [facility] PACU I Nursingon 01-30-2019 PACU I Nursing CO NA PACU I Nursing Record Summary Primary Physician: Rancho SIEGEL , Amrik Sutton Finalized Date/Time: 01/30/19 12:48:37 Pt. Name: WOOD ANGELIKA Nayak/Sex: 1940 Female Med Rec #: [id number] Physician: Amrik Vickers MD Financial #: [id number] Pt. Type: I Room/Bed: 0219/ Admit/Disch: 01/30/19 [...] By: Ana Rosas RN 01/30/19 12:48 Normal [facility] PreOp Nursingon 01-30-2019 PreOp Nursing CO NA PreOp Nursing Record Summary Primary Physician: Amrik Vickers MD Finalized Date/Time: 01/30/19 09:02:48 Pt. Name: WOOD ANGELIKA Nayak/Sex: 1940 Female Med Rec #: [id number] Physician: Amrik Vickers MD Financial #: [id number] Pt. Type: I Room/Bed: / Admit/Disch: 01/30/19 [...] By: Chelsy Batista RN 01/30/19 09:02 Normal [facility] Basic Metabolic Panelon 12-22 Calcium [Mass/Vol] 9.0 mg/dL Normal 8.5-10.6 [facility] Chloride [Moles/Vol] 103 mmol/L Normal 98-107 [facility] CO2 [Moles/Vol] 31 mmol/L Normal 21-32 [facility] Creatinine [Mass/Vol] 0.78 mg/dL Normal 0.55-1.02 [facility] Glucose [Mass/Vol] 90 mg/dL Normal 70-99 [facility] Potassium [Moles/Vol] 4.1 mmol/L Normal 3.5-5.1 [facility] Sodium [Moles/Vol] 142 mmol/L Normal 136-145 [facility] Urea nitrogen (BldV) [Mass/Vol] 19 mg/dL High 7.0-18.0 [facility] Urea nitrogen/Creatinine [Mass ratio] 24 mg/mg Normal [facility] CBC with Differentialon 12-22 Basophils (Bld) [#/Vol] 0.0 thou/mcL Normal 0.0-0.2 [facility] Basophils/100 WBC (Bld) 0.8 % Normal 0-3 [facility] Differential cell count method Nom (Bld) AUTOMATED DIFFERENTIAL Normal [facility] Eosinophils (Bld) [#/Vol] 0.1 thou/mcL Normal 0.0-0.4 [facility] Eosinophils/100 WBC (Bld) 2.0 % Normal 0-7 [facility] Erythrocyte distribution width (RBC) [Entitic vol] 14.4 % Normal 11.7-15.0 [facility] Hematocrit (Bld) [Volume fraction] 36.7 % Normal 34.0-50.0 [facility] Hemoglobin (Bld) [Mass/Vol] 12.1 g/dL Normal 11.5-17.0 [facility] Lymphocytes (Bld) [#/Vol] 1.3 thou/mcL Normal 0.7-4.5 [facility] Lymphocytes/100 WBC (Bld) 26.0 % Normal 14-46 [facility] MCH (RBC) [Entitic mass] 29.2 Picograms Normal 27.0-34.0 [facility] MCHC (RBC) [Mass/Vol] 32.9 g/dL Normal 32.0-36.0 [facility]ama nt [facility] MCV (RBC) [Entitic vol] 88.7 fL Normal 80-98 [facility] Monocytes (Bld) [#/Vol] 0.4 thou/mcL Normal 0.1-1.0 [facility] Monocytes/100 WBC (Bld) 8.5 % Normal 4-13 [facility] Neutrophils (Bld) [#/Vol] 3.1 thou/mcL Normal 1.5-7.8 [facility] Neutrophils/100 WBC (Bld) 62.7 % Normal 40-74 [facility] Platelet mean volume (Bld) [Entitic vol] 8.4 fL Normal 7.5-11.2 [facility] Platelets (Bld) [#/Vol] 214 thou/mcL Normal 140-415 [facility] RBC (Bld) [#/Vol] 4.13 x(10)6/mcL Normal 3.80-5.60 Mo [facility] WBC (Bld) [#/Vol] 5.0 thou/mcL Normal 4.0-10.5 [facility] Culture Methicillin Resistan t Staph aureuson 01-19-2019 MRSA isol Org specific cx Ql (Unsp spec) [facility] Microbiology PROCEDURE: Culture Methicillin Resistant Staph aureus SOURCE: Nasal Swab BODY SITE: COLLECTED DATE/TIME: 01/19/2019 15:10 EDT RECEIVED DATE/TIME: 01/19/2019 15:10 EDT START DATE/TIME: 01/19/2019 15:10 EDT FREE TEXT SOURCE: NASAL SWAB-. INTERFACED REPORTS Final Report [] Verified Date/Time/Personnel: 01/20/2019 21:24 EDT CONTRIBUTOR_SYSTEM, CO_PN *MRSA SCREEN* NEGATIVE FOR METHICILLIN(OXACILLIN) RESISTANT STAPHYLOCOCCUS AUREUS. Normal [facility] Comment on above: Performed By: #### 1 3317-3 #### [facility] [address] [place], [place] Partial Thromboplastin Time (aPTT)on 01-19-2019 aPTT Coag (PPP) [Time] 31 Sec Normal 23.2-34.6 [facility] Prothrombin Timeon 9 INR Coag (Bld) [Relative time] 1.0 {INR} Normal [facility] Comment on above: Result Comment: KARLENE RODARTE THE INDUCTION PHASE OF ORAL ANTICOAGULATION, THE INR MAY NOT REFLECT THE ANTICOAGULANT STATUS OF THE PATIENT. THERAPEUTIC RANGES FOR INR'S ARE: MOST CLINICAL SITUATIONS: INR 2.0-3.0 MECHANICAL PROSTHETIC VALVES: INR 2.5-3.5 CRITICAL: INR 5.0 PT Coag (PPP) [Time] 12.6 Sec Normal 11.9-14.6 [facility] XR C-Spine 4-5 Viewson 01-19 [...] disease, notably advanced at C5-C6 and C6-C7. [facility] thanks you for the opportunity to care for your patient. Workstation ID: [id number] FINAL REPORT Dictated By: Fritz Styles MD 01/19/2019 21:13 Assigned Physician: Fritz Styles MD Reviewed and Electronically Signed By: Fritz Styles MD 01/19/2019 21:17 Transcribed by: JESSIE 01/19/2019 21:13 Technologist: KAYLIN [facility] Culture Anaerobicon 10-19-19 19 Bacteria identified Anaer cx Nom (Unsp spec) [facility] Microbiology PROCEDURE: Culture Anaerobic SOURCE: Joint [...] 20:16 EDT CONTRIBUTOR_SYSTEM, CO_PN CULTURE IN PROGRESS [facility] Comment on above: Performed By: #### 6 35-3 #### [address] Culture Body Fluid + Suscept ibility + Smear Directon 10-18-2018 Bacteria identified Sterile body fluid culture Nom (Unsp spec) [facility] Microbiology PROCEDURE: Culture Body Fluid + [...] NO EPITHELIALS SEEN, NO ORGANISMS SEEN Normal [facility] Comment on above: Performed By: #### 6 36-1 #### [facility] [address] [place], [place] Culture Funguson 10-18-2018 Fungus identified Cx Nom (Unsp spec) [facility] Microbiology PROCEDURE: Culture Fungus SOURCE: Joint [...] WILL BE HELD FOR 1-4 WEEKS Normal [facility] Comment on above: Performed By: #### 5 80-1 #### [place] [address] [place], [place] XR SHOULDER LEFT MIN 2 VIEWS [...] have reviewed andapproved this report. Normal [facility] Cardiovascular Lab Reporton 11-07-2016 Cardiovascular Lab Report [facility] Patient Name: Angelika Muir [facility] MR #: [id number] Physician: Ankur Bhakta M.D.Medicine Service Date: 11/06/2016Division of Birthdate: 1940Cardiology Room #: CCAdult CardiovascularServic[address] [address] Fax Cardiovascular Laboratory ReportINDICATIONS: Ms. 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 Isaw her in our [place] office. She has had a complete evaluation [...] 11/06/2016/03:29 P/Ankur France M.D.Date Trans: 11/07/2016 06:05 A/[id number]: Eduardo Rose M.D. [address] [place] [address] [facility] Vital Signs Date Time Vital Sign Value Performing Clinician Facility 03-24-2024 10:38-0500 Body height 162.6 cm OtisFitnessManager DO Work Phone: [facility] [employer] 03-24-2024 10:38-0500 Body mass index (BMI) [Ratio] 29.01 kg/m2 OtisCute Attackng DO Work Phone: [facility] Thubrikar Aortic Valve [facility] 03-24-2024 10:38-0500 Body temperature 98.2 [degF] Otis MartinezVersa Networks DO [facility] 03-24-2024 10:38-0500 Body weight 76.66 kg OtisCute Attackng DO [facility] 03-24-2024 10:38-0500 Diastolic blood pressure 56 mm[Hg] Otis MartinezBull Moose Energyng DO [facility] Phone[facility] 03-24-2024 10:38-0500 Heart rate 96 /min Otis MartinezVersa Networks DO [facility] Phone[facility] 03-24-2024 10:38-0500 Respiratory rate 20 /min OtisCute Attackng DO [facility] 03-24-2024 10:38-0500 SaO2% (BldA) [Mass fraction] 100 % OtisCute Attackng DO Work Phone[facility] 03-24-2024 10:38-0500 Systolic blood pressure 120 mm[Hg] Otis MartinezBull Moose Energyng DO Work Phone[facility] 11-07-2023 02:09-0400 Diastolic blood pressure 58 mm[Hg] DO Yolanda Schwerer Work Phone: [facility] 11-07-2023 02:09-0400 Heart rate 83 /min DO Yolanda Schwerer Work Phone: [facility] 11-07-2023 02:09-0400 Respiratory rate 18 /min DO Yolanda Schwerer Work Phone: [facility] 11-07-2023 02:09-0400 SaO2% (BldA) [Mass fraction] 98 % DO Yolanda Schwerer Work Phone: [facility] 11-07-2023 02:09-0400 Systolic blood pressure 122 mm[Hg] DO Yolanda Schwerer Work Phone: [facility] 11-06-2023 22:54-0400 Body height 170.18 cm DO Yolanda Schwerer Work Phone: [facility] 11-06-2023 22:54-0400 Body temperature 98 [degF] DO Yolanda Schwerer Work Phone: [facility] 11-06-2023 22:54-0400 Body weight 58.96 kg DO Yolanda Schwerer Work Phone: [facility] 03-24-2021 15:45-0500 Body height 166.37 cm Yolanda Schwerer Other [employer] Other 03-24-2021 15:45-0500 Body mass index (BMI) [Ratio] 35.23 kg/m2 Yolanda Schwerer Other [employer] Other 03-24-2021 15:45-0500 Body temperature 99.4 [degF] Yolanda Schwerer Other [employer] Other 03-24-2021 15:45-0500 Body weight 97.52 kg Yolanda Calvo Other [employer] Other 03-24-2021 15:45-0500 Diastolic blood pressure 78 mm[Hg] Yolanda Gloverr Other [employer] Other 03-24-2021 15:45-0500 SaO2% (BldA) [Mass fraction] 96 % Yolanda Calvo Other [employer] Other 03-24-2021 15:45-0500 Systolic blood pressure 132 mm[Hg] Yolanda Gloverr Other [employer] Other Encounters Encounter Date Encounter Type Care Provider Facility Start: 06-11-2024 End: 06-11-2024 Refill Otispk Martinezalex [facility] Start: 05-22-2024 End: 05-22-2024 Orders Only Otis Johnie Martinezalex DO Work Phone: [facility] Comment on above: Lumbar spondylosis ( Primary Dx); Spinal stenosis of lumbar region, unspecified whether neurogenic claudication present Start: 04-03-2024 End: 04-03-2024 Refill Kianna Elisabet [facility] Start: 03-24-2024 End: 03-24-2024 Office outpatient visit 25 minutes Otis Martineztamiejosue DO Work Phone: [facility] Comment on above: Anxiety (Primary Dx) ; Mild late onset Alzheimer's dementia without behavioral disturbance, psychotic disturbance, mood disturbance, or anxiety (CMS-HCC); Supraventricular tachycardia (CMS-HCC); PMR (polymyalgia rheumatica) ([facility]-HCC); Mixed stress and urge urinary incontinence Start: 03-24-2024 End: 03-24-2024 ambulatory [facility] Start: 12-09-2023 End: 12-09-2023 ambulatory [facility] Start: 12-06-2023 End: 12-06-2023 ambulatory Tony Holguin MD Facility: [facility] Start: 11-06-2023 End: 11-07-2023 Emergency department patient visit DO Yolanda Calvo Work Phone: [facility] [place] Work Phone: Start: 10-26-2023 End: 10-26-2023 ambulatory [facility] Start: 10-20-2023 End: 10-20-2023 ambulatory [facility] Not Available Start: 10-04-2023 End: 10-04-2023 ambulatory [facility] Not Available Start: 08-09-2023 End: 08-09-2023 ambulatory Tony Holguin MD Facility: [facility] Start: 07-29-2023 End: 07-29-2023 ambulatory [facility] Start: 07-26-2023 End: 07-26-2023 ambulatory Tony Holguin MD Facility:[facility] Start: 07-12-2023 End: 07-12-2023 ambulatory Tony Holguin MD Facility: [facility] Start: 06-24-2023 End: 06-24-2023 ambulatory [facility] Start: 05-25-[address] [facility] Start: 05-25-2023 End: 05-25-2023 ambulatory [facility] Start: 05-24-2023 End: 05-24-2023 ambulatory [facility] Start: 05-24-2023 End: 05-24-2023 ambulatory Tony Holguin MD Facility: [facility] Start: 05-10-2023 End: 05-10-2023 ambulatory Tony Holguin MD Facility:[facility] Start: 04-19-2023 End: 04-19-2023 ambulatory Tony Holguin MD Facility:[facility] Start: 04-02-2023 End: 04-02-2023 ambulatory [facility] Start: 05-25-2022 End: 05-26-[address] SARIKA MUHAMMAD . Facility:[facility] Start: 07-15-2021 End: 07-15-2021 ambulatory Yolanda Schwerer Other [employer] Other Start: 07-15-2021 Telephone encounter Yolanda Schwerer [facility] [place] Start: 04-28-2021 End: 04-28-2021 ambulatory Yolanda Schwerer Other [employer] Other Start: 04-28-2021 Telephone encounter Yolanda Schwerer [facility] [place] Start: 04-03-2021 End: 04-03-2021 ambulatory Yolanda Schwerer Other [employer] Other Start: 04-03-2021 Telephone encounter Yolanda Schwerer [facility] [place] Start: 03-24-2021 End: 03-24-2021 ambulatory Yolanda Schwerer Other [employer] Other Start: 03-24-2021 Office outpatient vi sit 15 minutes Yolanda Schwerer [facility] [place] Start: 03-20-2021 End: 03-20-2021 ambulatory Yolanda Schwerer Other [employer] Other Start: 03-20-2021 Telephone encounter Yolanda Schwerer [facility] [employer] Start: 03-03-2021 End: 03-03-2021 ambulatory Yolanda Schwerer Other [employer] Other Start: 03-03-2021 Telephone encounter Yolanda Calvo [facility] [place] Start: 07-21-2017 Ambulatory JOSE LUIS Tera LIZAMA [facility] Start: 11-06-2016 End: 11-07-2016 Ambulatory ANKUR FRANCE Facility:[facility] Procedures Date Procedure Procedure Detail Performing Clinician Start: 03-24-2024 Adult depression screening assessment Otis Chaves DO Work Phone: Start: 06-18-2015 H/O: artificial joint Status p ost total shoulder arthroplasty Otis Chaves DO Work Phone: Plan of Treatment Date Care Activity Detail Author Start: 03-24-2025 Depression Screening Depression Scre ening [facility] Start: 03-24-2025 Fall Risk Screening Fall Risk Screen ing [facility] Start: 12-08-2024 Tobacco Screening Tobacco Screening [facility] Start: 09-29-2024 End: 09-29-2024 Patient encounter procedure 09/29/2024 10:30 AM EDT Office Visit [facility] [address] [place] [address] Otis Chvaes DO [address], [facility] [address] [facility] Start: 06-23-2024 Medicare Annual Well ness Visit Medicare Annual Wellness Visit [facility] Start: 11-21-2023 Influenza vaccination Influenza Vacc ine [facility] Start: 11-07-2023 Computed tomography of abdomen and pelvis with contrast CT abdomen pelvis w con [facility] Start: 11-07-2023 CT Abdomen and Pelvi s W contrast IV [facility] Start: 1959 DTaP,Tdap and Td Vaccines (1 - Tdap) DTaP,Tdap and Td Vaccines (1 - Tdap) [facility] Patient Education Abdominal Pain , Adult ED [facility] [place] Work Phone: Patient referral [facility] Work Phone: Immunizations Immunization Date Immunization Notes Care Provider Fa cility 05-25-2022 COVID-19, mRNA, LNP- S, PF, 100mcg/0.5mL Dose Otis Furlong DO Work Phone: [facility] 10-24-2021 zoster vaccine recombinant Otis Furlong DO Work Phone: [facility] 07-22-2021 zoster vaccine recombinant Otis Furlong DO Work Phone: [facility] 05-09-2021 Influenza, injectabl e, Madin Tanya Canine Kidney, preservative free, quadrivalent Otis Furlong DO Work Phone: [facility] 05-09-2021 influenza virus vacc ine, unspecified formulation Otis Furlong DO Work Phone: [facility] 07-05-2020 COVID-19 Vaccine Pfi zer - Documentation Purposes Only Yolanda Schwerer Other [facility] 06-07-2020 COVID-19 Vaccine Pfi zer - Documentation Purposes Only Yolanda Schwerer Other [facility] 05-02-2018 influenza, seasonal, injectable, preservative free Otis Furlong DO Work Phone: [facility] 04-30-2018 zoster vaccine recombinant Yolanda Schwerer Other [facility] 01-06-2018 influenza, high dose seasonal, preservative-free Otis Furlong DO Work Phone: [facility] 01-06-2018 zoster vaccine recombinant Yolanda Schwerer Other [facility] 03-19-2017 pneumococcal conjuga te vaccine, 13 valent Yolanda Schwerer Other [facility] 02-25-2017 influenza, high dose seasonal, preservative-free Otis Furlong DO Work Phone: [employer] 04-27-2016 pneumococcal polysaccharide vaccine, 23 valent Yolanda Schwerer Other [facility] 12-18-2014 pneumococcal polysaccharide vaccine, 23 valent Yolanda Schwerer Other [facility] 12-18-2014 zoster vaccine, live Yolanda Schwerer Other [facility] 02-11-2009 zoster vaccine, live Yolanda Schwerer Other [facility] Payers Date Payer Category Payer Self-pay [id number] 2023 Unknown 2015 Commercial [facility] [id number] 2003 Medicare [id number] 2003 Medicare 2003 Medicare [id number] 1959 Medicare [id number] 1959 Unknown [id number] 1940 Unknown [id number] 1940 Unknown [id number] 1940 Unknown [id number] 1940 Unknown [id number] 1938 Unknown [id number] 96 1940 Unknown [id number] 96 1940 Unknown [id number] 2.16.840.1.784526.3.579.2.1 96 1940 Unknown [id number] 2.16.840.1.348066.3.579.2.1 96 1940 Unknown [id number] 2.16.840.1.527475.3.579.2.1 96 1940 Unknown [id number] 2.16.840.1.046064.3.579.2.1 96 1940 Unknown [id number] 2.16.840.1.195039.3.579.2.1 96 1940 Unknown [id number] 2.16.840.1.416883.3.579.2.1 286 1940 Unknown [id number] 2.16.840.1.902619.3.579.2.1 286 1940 Unknown [id number] 2.16.840.1.009202.3.579.2.1 286 1938 Unknown [id number] 2.16.840.1.487605.3.579.2.1 286 1938 Unknown [id number] 2.16.840.1.928194.3.579.2.1 286 1938 Unknown [id number] 2.16.840.1.855640.3.579.2.1 286 1940 Unknown [id number] 2.16.840.1.465371.3.579.2.1 286 1940 Unknown [id number] 2.16.840.1.110077.3.579.2.1 286 Medicare [id number] 2.16.840.1.146392.19 Unknown [id number] 2.16.840.1.213335.3.579.2.5 31 Social History Date Type Detail Facility Unknown if ever smoked [employer] Other Start: 06-24-2023 End: 03-24-2024 Sex Assigned At [facility] Start: 01-06-2022 End: 11-07-2023 Tobacco smoking status NHIS Ex-smoker (finding) [facility] Start: 1940 Sex Assigned At Female [facility] History of tobacco use Current smoker [facility] History of tobacco use Cigarette Smoker P [facility] Start: 01-06-2022 Tobacco use and exposure Smokeless tobacco non-user [facility] Start: 03-24-2024 Alcoholic beverage intake Ex-drinker (finding) [facility] Start: 06-24-2023 End: 03-24-2024 History of Social function [facility] Has the [employer], or [employer] threatened to shut off services in your home in past 12Mo No [facility] Do you belong to any clubs or organizations such as muslim groups, unions, fraternal or athletic groups, or school groups? Yes [facility] Are you now , , , , never or living with a partner? [facility] How often to you hav e a drink containing alcohol? Never [facility] How many standard dr inks containing alcohol do you have on a typical day? Patient does not drink [facility] Do you feel stress - tense, restless, nervous, or anxious, or unable to sleep at night because your mind is troubled all the time - these days [OSQ] Not at all [facility] Start: 01-06-2022 Tobacco Comment only smoked for 3 months 60 years ago, 2 cigarettes a day [facility] Start: 10-15-2021 Alcohol Comment rare- on new [facility] Start: 1940 Sex assigned at Not on file [facility] Start: 10-25-2014 Sex Female (finding) [facility] Clinical Notes 04-18-2020 to 03-24-2024 Otis Chaves, DO - 03/24/2024 10:30 AM EST Note [...] Objective Physical Exam Exam conducted with a fixed income analyst present (daughter). Constitutional: General: She is not [...] accuracy regarding the recent terrorist attack in [place] and [place]. She occasionally loses her train of thought [...] in the morning. documented [facility] this encounter [facility] Note PROCEDURE: XR HIP RT 2 [...] by: CAMILO ARNOLD Date: 2022-05-24 19:59 [facility] 03-24-2021 Evaluation note Encounter Date Diagnosis Assessment Notes Mar, Skin rash (ICD-10 - R21) i think eczema, will do clobetasol she already has this. will continue on lotramin. she will call in a few days if not improved. [employer] Other 03-11-2021 NoteHNO ID: [id number] Author: Negro Pompa Service: ? Author Type: Physician Type: Progress Notes Filed: 05/30/2020 6:55 PM Note Text: [facility] FOR FEM[facility] [...] [facility]21 NotePatient Outreach (COOCC3) ANGELIKA MUIR ([id number]) 1940 F Date Time Provider Department 04/18/20 PENNY RIBEIRO During your visit today, we recorded the following information about you: Allergies As of Date: 04/18/2020 Noted Allergy Reaction TAPE (ADHESIVE TAPE (ROSINS)) 06/28/2012 2 - Rash Date Reviewed: 01/09/2020 Reviewed by: Niru Cunningham - Fully Assessed Order(s):SARS-COVID VACCINE 1ST DOSE APPT [[id number]] Order #: [id number] FUTURE Prescriptions as of 04/18/2020 Sig: SERTRALINE [...] 01/10/2014 Encounter Status:Closed by EPIC, PRODUSER on 04/22/20[facility] Evaluation noteNo InformationNort [employer] Other Evaluation noteNo assessment information available [facility] Work Phone: Evaluation note* Diagnosis Anxiety- Primary Anxiety state, unspecified Mild late onset Alzheimer's dementia without behavioral disturbance, psychotic disturbance, mood disturbance, or anxiety (CMS-HCC) Supraventricular tachycardia (CMS-HCC) Other specified cardiac dysrhythmias PMR (polymyalgia rheumatica) (CMS-HCC) Polymyalgia rheumatica Mixed stress and urge urinary incontinence Mixed incontinence urge and stress (male)(female) documented in this encounter [facility] SystemEvaluation [facility]* Diagnosis Lumbar spondylosis- Primary Lumbosacral spondylosis without myelopathy Spinal stenosis of lumbar region, unspecified whether neurogenic claudication present documented in this encounter [email or web address] SystemHistory general Narrative - Reported* Type Description Date Medical History hx of Low BP Medical History vertigo Medical History depression Surgical History CARDIAC LOOP RECORDER IMPLANT Surgical History BILATERAL HIP ARTHROPLASTY Surgical History BILATERAL [facility] JOINT ARTHROPLAST Y Surgical History TRIGGER RELEASE RIGHT RING FING ER Surgical History BILATRAL FOOT SURGERY Surgical History LEFT TOTAL SHOULDER X2 Hospitalization History see surgical hx [employer] Other InstructionsNot on filedocumented in this encounter [facility] SystemInstructionsNot on filedocumented in this encounter [email or web address] SystemInstructionsNot on filedocumented in this encounter [facility] Summary Purpose Family History Relationship Condition Age at Onset Recorded Date/T betty father Unknown mother Unknown Advance Directives Advance Directive Response Recorded Date/ Time Advance Directives No September 19 8 4:15pm Assessments Note Patient: ANGELIKA MUIR MR N: [id number] [facility]: [phone] Age: 78 years Sex: Female : 1940 Associated Diagnoses: None Author: Elbert Gleason MD Assessment Assessment Diagnosis: Osteoarthritis (XRN81-ZS M17.11, 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 Right TKA. Dr. Vickers. [...] Pain is currently described as intermittent but fuzcluhm-oq-jqbkdd, particularly with activity. Symptoms have failed to respond to more conservative measures, and she now presents for surgical intervention. Please see below regarding the status of active medical conditions and assessment and plan for preoperative medical risk stratification. Medical Illnesses: 1. Osteoarthritis affecting (more content not included)... Note CLINICAL SUMMARY Please take this summary document to your follow up appointments. [facility] 02/02/19 09:32 [address] [place]. [address] PATIENT INFORMATION Name: ANGELIKA MUIR Address: [address] [place] [id number] Age: 78 Years Phone: [phone] : 1940 12:00 MRN: [id number] Sex: Female Race: White Ethnicity: Not Hispan/Lat Admitted From: Clinic or [facility] Medical Service: Orthopedic Surgery Nurse [...] included)... Note Patient: ANGELIKA MUIR MR N: [id number] Age: 78 years Sex: Female : 1940 [...] (more content not included)... Note HNO ID: [id number] Author: Cheryle Wilcox (Aa) Service: ? Author Type: Faa Certified Powerplant Mechanic Type: Anesthesia Procedure Notes Filed: 05/01/2020 3:33 PM Note Text: ANESTHESIOLOGY PROCEDURE NOTE Airway General Information Procedure Start Time/Medication Administration: 05/01/2020 3:28 PM Patient location during procedure: OR Timeout Performed Pre-procedure: timeout performed Consent Obtained: Yes Patient identity confirmed: arm band, care food court team member and patient Staffing Anesthesiologist: Ihsan Gamino CAA: Ankur Wilcox (Aa) Indications and Patient Condition Preoxygenated: yes Patient position: sniffing Indications for airway management: anesthesia anesthesia circuit Method: asleep Final Airway Details Final airway type: supraglottic airway Final Supraglottic Airway: IGEL Size 4 Seal Adequate: yes SIGNATURE: AZ Gonzales PATIENT NAME: Angelika Muir DATE: May 01, 2020 TIME: 3:33 PM CSN: [id number] Note HNO ID: [id number] Author: Ariana Bhat) Victor Hugo Service: Urology Author Type: Resident Type: Brief Op Note Filed: 05/01/2020 4:09 PM Note Text: BRIEF OPERATIVE / PROCEDURE NOTE LOG ID: [id number] SURGERY/PROCEDURE DATE: 05/01/2020 INCISION/PROCEDURE START TIME: 3:28 PM INCISION CLOSE/PROCEDURE END TIME: 4:05 PM SURGEON(S)/PROCEDURALIST(S) AND PEDIATRIC DENTIST(S): Surgeon(s) and Role: * Negro Peña - Primary No Additional Staff SURGERY/PROCEDURE(S): Release [...] 01, 2020 TIME: 4:07 PM PAGER/CONTACT #: [phone] (more content not included)... Hospital Course Note CLINICAL SUMMARY Please take this summary document to your follow up appointments. [facility] 02/02/19 09:32 [address] [place]. [address] PATIENT INFORMATION Name: ANGELIKA MUIR Address: [address] [place] [id number] Age: 78 Years Phone: [phone] : 1940 12:[birth year] MRN: [id number] Sex: Female Race: White Ethnicity: Not Hispan/Lat Admitted From: Clinic or [facility] Medical Service: Orthopedic Surgery Nurse Unit/Bed: (MA) 2N 0219-01 Admit Date: 01/30/2019 05:59 PCP: Edith SIEGEL , Eduardo Hedrick PHYSICIANS INVOLVED WITH CARE Attending Physicians: Rancho SIEGEL , Jean Claude - Orthopaedic Surg Admitting Physician: Rancho SIEGEL , Jean Claude - Orthopaedic Surg Primary Care Physician:Eduardo Rose MD,Internal Medicine, - Consults: Rosibel SIEGEL , Elbert Kim - Internal Medicine RAMÍREZ Rod (more content not included)... Procedure Findings Note HNO ID: [id number] Author: Cheryle iWlcox (Aa) Service: ? Author Type: Faa Certified Powerplant Mechanic Type: Anesthesia Procedure Notes Filed: 05/01/2020 3:33 PM Note Text: ANESTHESIOLOGY PROCEDURE NOTE Airway General Information Procedure Start Time/Medication Administration: 05/01/2020 3:28 PM Patient location during procedure: OR Timeout Performed Pre-procedure: timeout performed Consent Obtained: Yes Patient identity confirmed: arm band, care food court team member and patient Staffing Anesthesiologist: Ihsan Gamino CAA: Ankur Wilcox (Aa) Indications and Patient Condition Preoxygenated: yes Patient position: sniffing Indications for airway management: anesthesia anesthesia circuit Method: asleep Final Airway Details Final airway type: supraglottic airway Final Supraglottic Airway: IGEL Size 4 Seal Adequate: yes SIGNATURE: AZ Gonzales PATIENT NAME: Angelika Muir DATE: May 01, 2020 TIME: 3:33 PM CSN: [id number] Note HNO ID: [id number] Author: Ariana Gay Service: Urology Author Type: Resident Type: Brief Op Note Filed: 05/01/2020 4:09 PM Note Text: BRIEF OPERATIVE / PROCEDURE NOTE LOG ID: [id number] SURGERY/PROCEDURE DATE: 05/01/2020 INCISION/PROCEDURE START TIME: 3:28 PM INCISION CLOSE/PROCEDURE END TIME: 4:05 PM SURGEON(S)/PROCEDURALIST(S) AND PEDIATRIC DENTIST(S): Surgeon(s) and Role: * Negro Pompa - [...] 01, 2020 TIME: 4:07 PM PAGER/CONTACT #: [phone] (more content not included)... Note Patient: ANGELIKA MUIR MR N: ([id number] Age: 78 years Sex: Female : 1940 [...] section and content) DATE CREATED AUTHOR 09/09/2017 [facility] DATE CREATED AUTHOR AUTHOR'S ORGANIZ ATION 09/15/2017 [facility] DATE CREATED AUTHOR AUTHOR'S ORGANIZ ATION 02/06/2019 [facility] DATE CREATED AUTHOR AUTHOR'S ORGANIZ ATION 11/22/2019 [facility] DATE CREATED AUTHOR AUTHOR'S ORGANIZ ATION 05/08/2020 [facility] DATE CREATED AUTHOR AUTHOR'S ORGANIZ ATION 04/05/2021 [facility] DATE CREATED AUTHOR AUTHOR'S ORGANIZ ATION 05/31/2022 [facility] DATE CREATED AUTHOR AUTHOR'S ORGANIZ ATION 05/26/2023 [facility] DATE CREATED AUTHOR AUTHOR'S ORGANIZ ATION 10/22/2023 [facility] DATE CREATED AUTHOR AUTHOR'S ORGANIZ ATION 11/18/2023 [facility] DATE CREATED AUTHOR AUTHOR'S ORGANIZ ATION 12/12/2023 [facility] DATE CREATED AUTHOR AUTHOR'S ORGANIZ ATION 03/31/2024 [facility] REASON FOR VISIT (unrecogniz ed section and content) Reason Comments Anxiety Reason Onset Date Comments Med Refill 04/03/2024 Reason Comments Med Refill Care Teams (unrecognized sec tion and content) Team Status: Active Member Role Status Dates Yolanda Calvo DO Primary Care Provider Active Team Status: Inactive Member Role Status Dates Yolanda Calvo DO Primary Care Provider Active Start: November 06, 2023 End: November 07, 2023 Rita Corado DO Emergency Provider Active St art: November 06, 2023 End: November 07, 2023 Supervisor [employer] Department Relationship Specialty Start Date End Date Otis Chaves DO [address] [place] [address] PCP - General Family Medicine 10/03/21 Supervisor [employer] Department Relationship Specialty Start Date End Date Otis Chaves DO [address] [place] [address] PCP - General Family Medicine 10/03/21 Supervisor [employer] Department Relationship Specialty Start Date End Date Otis Chaves DO [address] [place] [address] PCP - General Family Medicine 10/03/21 Supervisor [employer] Department Relationship Specialty Start Date End Date Otis Chaves DO [address] [place] [address] PCP - General Family Medicine 10/03/21 Goals [...] BE BASED ON THE PRIMARY CLINICAL RECORDS. [facility] Isabella Oliver [facility]. provides no warranty or guarantee of the accuracy or completeness of information in this document.
[2024-06-12 12:06] VITALS: BP 129/77; PULSE 81; TEMP 36.7; O2SAT 96
[2024-06-12 12:45] VITALS: BP 176/84; PULSE 76; O2SAT 97
[2024-06-12 12:46] VITALS: BP 184/85; PULSE 74; O2SAT 98
[2024-06-12] MEDS: DEXAMETHASONE SOD PHOS 10 MG/ML VIAL INJ (12:47)
[2024-06-12] MEDS: BUPIVACAINE HCL 0.25% PF 25 MG/10 ML VIAL INJ (12:47)
[2024-06-12] MEDS: 0.9 % SODIUM CHLORIDE 10 ML SYRINGE - SALINE FLUSH INJ (12:47)
[2024-06-12] MEDS: IOHEXOL 240 MG/ML - 10 ML VIAL 12 MG INJ (12:48)
[2024-06-12] MEDS: LIDOCAINE HCL 2% 400 MG/20 ML MDV 3 ML INJ (12:48)
--- NOTE | 2024-06-12 12:51 | P.ON_ITS ---
Date of procedure: 06/12/24 Pre-op diagnosis: Pain due to lumbar stenosis with neurogenic claudication Post-op diagnosis: same as pre-op Procedure: Procedure: Right L3-4, 4-5 transforaminal epidural steroid injection Medications: Bupivacaine 0.25% 2cc, lidocaine 2% 1cc, dexamethasone 10mg The patient was seen and examined in the preoperative holding area.? Informed consent was obtained and placed on the chart.? Patient was brought to the medical procedure unit and placed in the prone position where a timeout was completed verifying the correct patient, procedure site, position, and planned special equipment using sterile aseptic technique.? Under direct fluoroscopic visualization a 25-gauge Quincke tipped spinal needle was advanced to the designated neural foramen where contrast dye was injected to show adequate spread.? The needle was inserted at level right L3-4. There was no evidence of vascular or adverse uptake.? Epidural spread was appreciated.? The above- mentioned injectate was then placed in a 1.5 mL aliquot preceded by negative aspiration.? The needle was removed. The needle was inserted and the procedure repeated at level right L4-5.? The surgery site was covered.? Patient was taken to the postprocedural recovery area and monitored for an appropriate length of time before found suitable for discharge in the accompaniment of a responsible adult. Anesthesia: Local Surgeon: Tony Holguin Pathology: none sent Condition: stable Disposition: no change
== END 2024-06-12 13:02 | disposition home or self-care (01) ==
LOC: SURGOUT 11:34
PROVIDERS: PCP Family Medicine; Visit Provider Anesthesiology
DX: M48.062 Spinal stenosis, lumbar region with neurogenic claudication (principal); M54.50 Low back pain, unspecified
CPT/HCPCS: 64483; 64484; J0665; J1100; Q9966

== ENCOUNTER 2024-06-22 13:34 | Outpatient (OUT) | payer MEDICARE, OTHER, SELFPAY ==
--- NOTE | 2024-06-22 14:26 | P.CN_ITS ---
Consult Note: HPI Data of Consult Patient: known to practice within the last 3 years Requesting Physician: Jamaica Garcia NP Primary Care Provider: FRANKI CHAVES Consult Narrative Reason for consult: Low back, lower extremity pain Narrative: 84yof who presents for assessment. continues to have worsening pain from back to bilateral lower extremities. mri reviewed, which is significant for multilevel degeneration and multiple levels of stenosis, worst at l3-4 and l4-5. she continues to engage in provider directed home exercise, which she has attempted for >6 weeks with minimal benefit. utilizes gabapentin. denies adverse med side effects. recently underwent right L3-4 L4-5 TFESI with >50% improvement greater than 3 months. Pain 3/10 increasing with standing walking and activity. pt would like to address chronic right shoulder pain secondary to OA and would like an injection. cc:: CC: Jamaica Garcia NP Review of Systems ROS Status of ROS 10 or more systems reviewed and unremark able except as noted in history and below Musculoskeletal Reports: joint pain PFSH PFSH Medical History Rheumatoid arthritis ?M06.9 - Rheumatoid arthritis, unspecified (ICD-10) H/O malignant neoplasm of breast ?Z85.3 - Personal history of malignant neoplasm of breast (ICD-10) Kidney stone ?N20.0 - Calculus of kidney (ICD-10) Smoker ?F17.200 - Nicotine dependence, unspecified, uncomplicated (ICD-10) Surgical History Status post total shoulder arthroplasty ?Z96.619 - Presence of unspecified artificial shoulder joint (ICD-10) H/O foot surgery ?Z98.890 - Other specified postprocedural states (ICD-10) H/O hand surgery ?Z98.890 - Other specified postprocedural states (ICD-10) S/P total knee arthroplasty ?Z96.659 - Presence of unspecified artificial knee joint (ICD-10) S/P total hip arthroplasty ?Z96.649 - Presence of unspecified artificial hip joint (ICD-10) H/O thumb surgery ?Z98.890 - Other specified postprocedural states (ICD-10) Hx of tonsillectomy ?Z90.89 - Acquired absence of other organs (ICD-10) Family History Other Lumbago Meds Home Medications and Allergies Home Medications ?Medication ?Instructions ?Recorded ?Confirmed ?Type donepezil 5 mg tablet mg 11/01/23 History prednisone 5 mg tablet mg 11/01/23 History Allergies Allergy/AdvReac Type Severity Reaction Status Date / Time No Known Drug Allergies Allergy Verified 06/12/24 12:10 Exam Constitutional Documenting provider has reviewed patient's vital signs: yes Common normals: no apparent distress, oriented x3, healthy appearing, alert and well nourished General appearance: cooperative HENMT Common normals: normocephalic, hearing grossly normal bilaterally and moist oral mucous membranes Head and scalp: normocephalic Eye Common normals: PERRL Pupil: PERRL Neck & C-Spine Common normals: full ROM General: normal visual inspection Chest Common normals: inspection of chest normal Respiratory Common normals: normal respiratory effort, no retractions and no use of accessory muscles Back & Pelvis Thoracic spine/upper back: normal to inspection Lumbar spine/lower back: normal to inspection, ROM limited and straight leg raise negative bilaterally Sacroiliac joints: SI joint(s) abnormal Other: right SIJ positive isabelle(patricks), gaenslens, thigh thrust, compression test Extremity Common normals: normal to inspection and full ROM Right upper extremity: shoulder joint Right shoulder joint exam: special tests Right shoulder special tests: Empty can test: Positive, Apley scratch test: Positive and Acromioclavicular (AC) compression test: Positive Other: moderate pain with palpation of AC joint, ROM intact but produces moderate pain. positive posterior liftoff, apleys scratch, and empty can test Neuro Common normals: oriented x3, CN's II-XII intact bilaterally, moves all extremities, no focal motor deficits, no sensory deficits noted and deep tendon reflexes 2+ bilaterally Sensorium/orientation: alert Motor exam: no movement abnormalities noted and strength abnormal Psych Common normals: mental status grossly normal, thought process normal, cooperative, affect normal, speech normal and activity/motor behavior normal Speech: normal speech Thought process: normal thought process Results Additional Findings Additional findings: If on a controlled substance or opioids, I have checked an [place]AR[place] report on this patient and there are no aberrancies noted in the prescribing history.??If on a controlled substance or opioid a drug screen was completed and reviewed within the last year, and if there has not been a drug screen completed we ordered one today to monitor higher risk, state monitored pain medication use. As part of providing excellent, safe, comprehensive care, the following was completed at our patient's visit: 1. A medication reconciliation and review to ensure accurate knowledge of current/active medications, including asking our patients to inform us about any damg-gpy-zfndsft medications or herbal remedies/nutritional supplements/alternative remedies. 2. A review to specifically ensure our patients have had annual screening for screening for depression, screening for tobacco use, and screening for unhealthy alcohol use. For concerning screenings had a discussion with the patient, provided patient education, and recommended follow-up with primary care provider when appropriate. If patient noted with a risk of falling, they received e ducation on strength, gait, and balance training to prevent future risk of falling. Assessment and Plan Assessment and Plan (1) Lumbar stenosis with neurogenic claudication: Assessment and Plan: >50% improvement on exam (2) Lumbar spondylosis: (3) Right hip pain: Assessment and Plan: declining further workup (4) Sacroiliitis: Assessment and Plan: declining further workup (5) Osteoarthritis of right shoulder: Plan update right shoulder xray, proceed with right shoulder injection with Dr Barbie rodriguez defer right SIJ injection per pt request continue HEP as tolerated f/u after injection
== END 2024-06-22 13:35 | disposition home or self-care (01) ==
LOC: PM 13:35
PROVIDERS: PCP Family Medicine; Visit Provider Nurse Practitioner
DX: M48.062 Spinal stenosis, lumbar region with neurogenic claudication (principal); M47.816 Spondylosis without myelopathy or radiculopathy, lumbar region; M25.551 Pain in right hip; M46.1 Sacroiliitis, not elsewhere classified; M19.011 Primary osteoarthritis, right shoulder
CPT/HCPCS: G0463

== ENCOUNTER 2024-06-22 14:40 | Outpatient (OUT) | payer MEDICARE, OTHER, SELFPAY ==
--- NOTE | 2024-06-22 15:13 | XR_ITS ---
The [address] [address] Patient Name: AMISHA GARCIA MRN: [id number] date: 1940 Sex: F Assigned Patient Location: [facility] Current Patient Location: [facility] Accession/Order Number: [id number] Exam Date: 06/22/2024 16:01 Report Date: 06/22/2024 16:03 At the request of: ALCIDES LYNN NP Procedure: XR shoulder RT min 2V 3 views right shoulder plain film HISTORY: Fell injuring right shoulder. Couple weeks ago. COMPARISON: None ACUTE FINDINGS: None DEGENERATIVE CHANGE: Extensive glenohumeral degeneration with marginal spurring and subarticular sclerotic and cystic changes of the medial humeral head and glenoid. Suspected rotator cuff calcific changes. Humeral head elevation consistent rotator cuff insufficiency. SOFT TISSUE FINDINGS: Unremarkable JOINT EFFUSION: None POSTOP CHANGES: None BONY MINERALIZATION: Adequate XR/XR shoulder RT min 2V IMPRESSION: Extensive glenohumeral degeneration. Rotator cuff calcific tendinopathy. Rotator cuff insufficiency. No acute displaced fracture. Impression dictated by: John Baires M.D.06/22/2024 4:03 PM Dictation Location: [employer] Electronically authenticated by: [id number] Y Date: 06/22/2024 16:03
== END 2024-06-22 14:41 | disposition home or self-care (01) ==
LOC: RAD 14:46
PROVIDERS: PCP Family Medicine; Visit Provider Nurse Practitioner
DX: M25.511 Pain in right shoulder (principal); M19.011 Primary osteoarthritis, right shoulder; M46.1 Sacroiliitis, not elsewhere classified; M47.816 Spondylosis without myelopathy or radiculopathy, lumbar region; M48.062 Spinal stenosis, lumbar region with neurogenic claudication; M25.551 Pain in right hip
CPT/HCPCS: 73030; G0463

== ENCOUNTER 2024-07-17 13:47 | Outpatient (OUT) | payer MEDICARE, OTHER, SELFPAY ==
--- NOTE | 2024-07-17 14:46 | P.CN_ITS ---
Consult Note: HPI Data of Consult Patient: known to practice within the last 3 years Consult date: 07/17/24 Requesting Physician: Tony Holguin MD Primary Care Provider: FRANKI CHAVES Consult Narrative Reason for consult: right shoulder pain Narrative: 84yof who presents for in office injection. continues to have right shoulder pain, would like to proceed with injection. cc:: CC: Tony Holguin MD Review of Systems ROS Status of ROS 10 or more systems reviewed and unremark able except as noted in history and below PFSH PFSH Medical History Rheumatoid arthritis ?M06.9 - Rheumatoid arthritis, unspecified (ICD-10) H/O malignant neoplasm of breast ?Z85.3 - Personal history of malignant neoplasm of breast (ICD-10) Kidney stone ?N20.0 - Calculus of kidney (ICD-10) Smoker ?F17.200 - Nicotine dependence, unspecified, uncomplicated (ICD-10) Surgical History Status post total shoulder arthroplasty ?Z96.619 - Presence of unspecified artificial shoulder joint (ICD-10) H/O foot surgery ?Z98.890 - Other specified postprocedural states (ICD-10) H/O hand surgery ?Z98.890 - Other specified postprocedural states (ICD-10) S/P total knee arthroplasty ?Z96.659 - Presence of unspecified artificial knee joint (ICD-10) S/P total hip arthroplasty ?Z96.649 - Presence of unspecified artificial hip joint (ICD-10) H/O thumb surgery ?Z98.890 - Other specified postprocedural states (ICD-10) Hx of tonsillectomy ?Z90.89 - Acquired absence of other organs (ICD-10) Family History Other Lumbago Meds Home Medications and Allergies Home Medications ?Medication ?Instructions ?Recorded ?Confirmed ?Type donepezil 5 mg tablet mg 11/01/23 History prednisone 5 mg tablet mg 11/01/23 History Allergies Allergy/AdvReac Type Severity Reaction Status Date / Time No Known Drug Allergies Allergy Verified 06/12/24 12:10 Exam Narrative Exam Narrative: Psych-alert and oriented x 3. Attentive and appropriate, constitutionally normal, displays normal mood and affect per situation.? There are no obvious deficits in memory, reasoning, or intellect.? Skin-no obvious rashes, bruising, erythema noted to the patient's area of pain. Extremities- extremities are warm with minimal edema and palpable pulses. Shoulder - tender to palpation in right shoulder. Pain elicited with abduction, external rotation of right shoulder. Coordination remains intact.? Gait remains non-antalgic. Assessment and Plan Assessment and Plan (1) Osteoarthritis of right shoulder: Qualifiers: Osteoarthritis type: primary Qualified Code(s): M19.011 - Primary osteoarthritis, right shoulder Plan 84yof who presents for in office injection. continues to have significant right shoulder pain. imaging shows significant right shoulder oa. given symptoms and imaging, prudent to proceed with injection. she is in agreement. procedure: right shoulder injection medications: bupivacaine 0.25% 4cc, depomedrol 40mg I explained the details of the procedure to the patient including the risks, benefits, and alternatives.? We had an informed discussion.? The patient verbalized understanding and signed the consent form.? All questions were answered appropriately.? A time-out was performed.? After obtaining a comfortable seated position, the skin overlying the right shoulder was prepped with alcohol 3 times.? The sulcus between the head of the humerus and the acromion was identified.? The needle was inserted in a sterile manner 2 cm inferior and medial to the posterolateral corner of the acromion and was directed anteriorly toward the coracoid process. The contents of the syringe were gently injected without any resistance into the joint space after negative aspiration for blood or other bodily fluids.? The needle was removed and pressure was applied at the injection site to decrease the incidence of ecchymosis and hematoma formation.? A sterile bandage was applied.
== END 2024-07-17 13:48 | disposition home or self-care (01) ==
LOC: PM 13:47
PROVIDERS: PCP Family Medicine; Visit Provider Anesthesiology
DX: M19.011 Primary osteoarthritis, right shoulder (principal)
CPT/HCPCS: 20610; J0665; J1010

== ENCOUNTER 2024-08-03 13:24 | Outpatient (OUT) | payer MEDICARE, OTHER, SELFPAY ==
--- NOTE | 2024-08-03 14:08 | PM.CN ---
Consult Note: HPI Data of Consult Patient: known to practice within the last 3 years Consult date: 08/03/24 Requesting Physician: Jamaica Garcia NP Primary Care Provider: FRANKI CHAVES Consult Narrative Reason for consult: right shoulder pain Narrative: 84yof who presents for assessment. continues to have moderate to severe right shoulder pain, recent xray consistent with OA, as well as rotator cuff insufficiency. no recent orthopedic consultations. recent right shoulder injection provided no pain relief. pt has failed > 6 weeks of provider guided HEP, heat, ice, tylenol, motrin. cc:: CC: Jamaica Garcia NP Review of Systems ROS Status of ROS 10 or more systems reviewed and unremarkable except as noted in history and below Musculoskeletal Reports: joint pain PFSH PFSH Medical History Rheumatoid arthritis ?M06.9 - Rheumatoid arthritis, unspecified (ICD-10) H/O malignant neoplasm of breast ?Z85.3 - Personal history of malignant neoplasm of breast (ICD-10) Kidney stone ?N20.0 - Calculus of kidney (ICD-10) Smoker ?F17.200 - Nicotine dependence, unspecified, uncomplicated (ICD-10) Surgical History Status post total shoulder arthroplasty ?Z96.619 - Presence of unspecified artificial shoulder joint (ICD-10) H/O foot surgery ?Z98.890 - Other specified postprocedural states (ICD-10) H/O hand surgery ?Z98.890 - Other specified postprocedural states (ICD-10) S/P total knee arthroplasty ?Z96.659 - Presence of unspecified artificial knee joint (ICD-10) S/P total hip arthroplasty ?Z96.649 - Presence of unspecified artificial hip joint (ICD-10) H/O thumb surgery ?Z98.890 - Other specified postprocedural states (ICD-10) Hx of tonsillectomy ?Z90.89 - Acquired absence of other organs (ICD-10) Family History Other Lumbago Meds Home Medications and Allergies Home Medications ?Medication ?Instructions ?Recorded ?Confirmed ?Type donepezil 5 mg tablet mg 11/01/23 History prednisone 5 mg tablet mg 11/01/23 History Allergies Allergy/AdvReac Type Severity Reaction Status Date / Time No Known Drug Allergies Allergy Verified 06/12/24 12:10 Exam Constitutional Documenting provider has reviewed patient's vital signs: yes Common normals: no apparent distress, oriented x3, healthy appearing, alert and well nourished General appearance: cooperative [facility] Common normals: normocephalic, hearing grossly normal bilaterally and moist oral mucous membranes Head and scalp: normocephalic Eye Common normals: PERRL Pupil: PERRL Neck & C-Spine Common normals: full ROM General: normal visual inspection Chest Common normals: inspection of chest normal Respiratory Common normals: normal respiratory effort, no retractions and no use of accessory muscles Back & Pelvis Thoracic spine/upper back: normal to inspection Lumbar spine/lower back: normal to inspection, ROM limited and straight leg raise negative bilaterally Sacroiliac joints: SI joint(s) abnormal Other: right SIJ positive isabelle(patricks), gaenslens, thigh thrust, compression test Extremity Common normals: normal to inspection and full ROM Right upper extremity: shoulder joint Right shoulder joint exam: special tests Right shoulder special tests: Empty can test: Positive, Apley scratch test: Positive and Acromioclavicular (AC) compression test: Positive Other: moderate pain with palpation of AC joint, ROM intact but produces moderate pain. positive posterior liftoff, apleys scratch, and empty can test Neuro Common normals: oriented x3, CN's II-XII intact bilaterally, moves all extremities, no focal motor deficits, no sensory deficits noted and deep tendon reflexes 2+ bilaterally Sensorium/orientation: alert Motor exam: no movement abnormalities noted and strength abnormal Psych Common normals: mental status grossly normal, thought process normal, cooperative, affect normal, speech normal and activity/motor behavior normal Speech: normal speech Thought process: normal thought process Results Additional Findings Additional findings: If on a controlled substance or opioids, I have checked an [place] report on this patient and there are no aberrancies noted in the prescribing history.??If on a controlled substance or opioid a drug screen was completed and reviewed within the last year, and if there has not been a drug screen completed we ordered one today to monitor higher risk, state monitored pain medication use. As part of providing excellent, safe, comprehensive care, the following was completed at our patient's visit: 1. A medication reconciliation and review to ensure accurate knowledge of current/active medications, including asking our patients to inform us about any [id number] medications or herbal remedies/nutritional supplements/alternative remedies. 2. A review to specifically ensure our patients have had annual screening for screening for depression, screening for tobacco use, and screening for unhealthy alcohol use. For concerning screenings had a discussion with the patient, provided patient education, and recommended follow-up with primary care provider when appropriate. If patient noted with a risk of falling, they received education on strength, gait, and balance training to prevent future risk of falling. Assessment and Plan Assessment and Plan (1) Osteoarthritis of right shoulder: Qualifiers: Osteoarthritis type: primary Qualified Code(s): M19.011 - Primary osteoarthritis, right shoulder (2) Lumbar stenosis with neurogenic claudication: Assessment and Plan: >50% improvement on exam (3) Lumbar spondylosis: (4) Right hip pain: Assessment and Plan: declining further workup (5) Sacroiliitis: Assessment and Plan: declining further workup (6) Tendinopathy of right rotator cuff: Plan declining right shoulder MRI and referral to orthopedics proceed with right suprascapular and axillary nerve block under fluoroscopy working towards RFA continue HEP as tolerated f/u after injection
== END 2024-08-03 13:25 | disposition home or self-care (01) ==
PROVIDERS: PCP Family Medicine; Visit Provider Nurse Practitioner
DX: M19.011 Primary osteoarthritis, right shoulder (principal); M48.062 Spinal stenosis, lumbar region with neurogenic claudication; M47.816 Spondylosis without myelopathy or radiculopathy, lumbar region; M25.551 Pain in right hip; M46.1 Sacroiliitis, not elsewhere classified; M75.31 Calcific tendinitis of right shoulder
CPT/HCPCS: G0463

== ENCOUNTER 2024-08-21 10:57 | Day surgery (SDC) | payer MEDICARE, OTHER, SELFPAY ==
--- OUTSIDE RECORDS SUMMARY | 2024-08-21 11:00 | XMS_ITS | Clinical Summary ---
Author Organization [facility] tem Address [id number] [address] [place] [address] Care Team Providers Care Security Alarm Installer Name Role Phone Otis Jiménez DO Primary Care Provider Allergies Active Allergy Reactions Criticality Noted Date Comments Adhesive Rash Low 06/28/2012 Fludrocortisone Other (See Comments) 04/29/2021 Other 06/18/2015 Seasonal Allergies Medications predniSONE (DELTASONE) 5 mg tablet Take 1 tablet (5 mg total) by mouth in the morning. 03/24/2023 Active donepeziL (ARICEPT) 10 mg tablet TAKE 1 TABLET BY MOUTH NIGHTLY 30 tablet 5 02/21/2024 Active mirabegron (MYRBETRIQ) 50 mg tablet extended release 24 hr Take 1 tablet (50 mg total) by mouth in the morning. 90 tablet 2 03/24/2024 Active naproxen (NAPROSYN) 250 mg tablet Take 1 tablet (250 mg total) by mouth 2 (two) times a day as needed for pain. 60 tablet 1 04/03/2024 Active escitalopram (LEXAPRO) 5 mg tablet TAKE 1 TABLET BY MOUTH IN THE MORNING 90 tablet 1 06/11/2024 Active Active Problems Problem Noted Date Diagnosed Date Mild late onset Alzheimer's dementia without behavioral disturbance, psychotic disturbance, mood disturbance, or anxiety 03/24/2024 Supraventricular tachycardia 03/24/2024 Anxiety 12/09/2023 Asymptomatic postmenopausal state 12/09/2023 PMR (polymyalgia rheumatica) 07/08/2022 Greater trochanteric bursitis of left hip 2021 Cancer of skin of right lower leg 01/02/2022 Abnormal gait 11/28/2021 Asthma 11/28/2021 Bilateral sensorineural hearing loss 11/28/2021 Stasis dermatitis 11/28/2021 Mixed stress and urge urinary incontinence 11/28 Urethral stricture 11/28/2021 Urinary incontinence 11/28/2021 Urinary urgency 11/28/2021 Unspecified rotator cuff tea r or rupture of right shoulder, not specified as traumatic 06/03/2016 Status post total shoulder arthroplasty 06/18/19 16 Syncope and collapse 09/26/2012 Coronary atherosclerosis 01/13/2012 Disorder of pericardium 01/08/2012 Obstructive sleep apnea syndrome 12/21/2007 Resolved Problems Problem Noted Date Diagnosed Date Resolved Date Class 3 severe obesity due t o excess calories with serious comorbidity in adult, unspecified BMI 06/26/2022 07/07/2022 Non-pressure ulcer of left l ower extremity, limited to breakdown of skin 06/26/2022 05/24/2023 Cancer of skin of left lower leg 01/02/2022 06/26/2022 Surgical wound, non healing 12/05/2021 03/11/2022 Essential hypertension 11/28/202105/23 History of total right knee replacement 11/28/2021 06/26/2022 Major depression, single episode 11/28/2021 06/26/2022 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 11/28/2021 11/28/2021 Open wound of left lower leg 11/27/2021 10/26/2023 Rheumatoid arthritis 06/03/2016 023 Malignant neoplasm of female breast 01/08/2012 05/24/2023 Depressive disorder 12/21/2007 06/27/19 23 Encounters Date Type Department Care Team Description 07/12/2024 Orders Only [facility] [address] [place] [phone] Ref Prov, Not In System 06/21/2024 Telephone [facility] [address] [place] [address] Demetrio Huitron CMA 06/11/2024 Refill [facility] [address] [place] [address] Otis Jiménez DO 05/31/2024 Orders Only [facility] [address] [place] [address] Coral Hood CMA Lumbar spondylosis; Spinal stenosis of lumbar region, unspecified whether neurogenic claudication present 05/22/2024 Orders Only [facility] [address] [place] [address] Otis Jiménez, Lumbar spondylosis (Primary Dx); Spinal stenosis of lumbar region, unspecified whether neurogenic claudication present from Last 3 Months Immunizations Immunization Administration Dates Next Due COVID-19, mRNA, LNP-S, PF, 100mcg/0.5mL Dose 05/25/2022 Influenza (IM) Preservative Free 05/02/2018 Influenza High Dose Preserva tive Free IM 01/06/2018,02/25/2017 Influenza, Injectable, Mdck, Preservative Free, Quad 05/09/2021 Pneumococcal Polysaccharide 04/27/2016, 5 Zoster Live 12/18/2014,02/11/2009 Zoster Vaccine Recombinant 10/24/2021,,04/30/2018,01/06 Family History Medical History Relation Name Comments Obesity Brother 1 younger No Known Problems Brother [address] [place] [address] [place] No Known Problems Daughter Heart disease Father at age 92 Arthritis Mother at age 90 Diabetes Paternal Grandfather No Known Problems Son Relation Name Status Comments Brother 1 Alive Brother 2 Daughter Alive Father Mother Paternal Grandfather Son Alive Social History Tobacco Use Types Packs/Day Years Used Date Smoking Tobacco: Former Cigarettes Smokeless Tobacco: Never Tobacco Cessation:Counseling Given: Not Answered Comments:only smoked for 3 months 60 years ago, 2 cigarettes a day Alcohol Use Standard Drinks/Week Comments Not Currently 0 (1 standard drink = 0.6 oz pur e alcohol) rare- on new years clive [facility] Utilities Answer Date Recorded In the past 12 months has e electric, gas, oil, or water company threatened to shut off services in your home? No 06/24/2023 Social Connection and Isolat ion Panel [NHANES] Answer Date Recorded In a typical week, how many times do you talk on the phone with family, friends, or neighbors? More than three times a week 06/24/2023 How often do you get togethe r with friends or relatives? Once a week 06/24/2023 How often do you attend chur ch or spiritism services? More than 4 times per year 06/24/2023 Do you belong to any clubs o r organizations such as oriental orthodox groups, unions, fraternal or athletic groups, or school groups? Yes 06/24/2023 How often do you attend meet ings of the clubs or organizations you belong to? 1 to 4 times per year 06/24/2023 Are you , , di vorced, , never , or living with a partner? 06/24/2023 AUDIT-C Answer Date Recorded Q1: How often do you have a drink containing alcohol? Never 06/24/2023 Q2: How many drinks containi ng alcohol do you have on a typical day when you are drinking? Patient does not drink Q3: How often do you have si x or more drinks on one occasion? Never 06/24/2023 Overall Financial Resource Strain (CARDIA) Answe r Date Recorded How hard is it for you to pa y for the very basics like food, housing, medical care, and heating? Not hard at all 06/24/2023 PHQ-2 Answer Date Recorded Total Score 0 03/24/2024 [facility] - Occupational Stress Questionnaire Answer Date Recorded Do you feel stress - tense, restless, nervous, or anxious, or unable to sleep at night because your mind is troubled all the time - these days? Not at all 06/24/2023 Exercise Vital Sign Answer Date Recorde d On average, how many days pe r week do you engage in moderate to strenuous exercise (like a brisk walk)? 0 days 06/24/2023 On average, how many minutes do you engage in exercise at this level? 0 min 06/24/2023 PRAPARE - Transportation Answer Date Re corded In the past 12 months, has l ack of transportation kept you from medical appointments or from getting medications? No 06/2023 In the past 12 months, has l ack of transportation kept you from meetings, work, or from getting things needed for daily living? No 06/24/2023 Housing Instability Answer Date Recorde d Are you worried or concerned that in the next two months you may not have stable housing that you own, rent or stay in as a part of a household? No 06/24/2023 Childcare Answer Date Recorded Do problems getting child ca re make it difficult for you to work or study? No 06/24/2023 Employment Answer Date Recorded Do you need help finding a [facility] [employer] center and/or a training program? No 06/24/2023 Hunger Screening Answer Date Recorded Within the past 12 months we worried whether our food would run out before we got money to buy more. Never True 03/24/2024 Within the past 12 months th e food we bought just didn't last and we didn't have money to get more. Never True 03/24/2024 Purpose - Life Answer Date Recorded I have a purpose and direction in my life. Agree 06/24/2023 Comments No Sex and Gender Information Value Date Recorded Sex Assigned at Not on file Legal Sex Female 11:26 AM EDT Gender Identity Not on file Sexual Orientation Not on file Last Filed Vital Signs Vital Sign Reading Time Taken Comments Blood Pressure 120/56 03/24/2024 10:38 AM EST Pulse 96 03/24/2024 10:38 AM EST Temperature 36.8 C (98.2 F) 03/24/2024 10:38 AM EST Respiratory Rate 20 03/24/2024 10:38 AM EST Oxygen Saturation 100% 03/24/2024 10:38 AM EST Inhaled Oxygen Concentration - - Weight 76.7 kg (169 lb) 03/24/2024 10:38 AM EST Height 162.6 cm (5' 4 ) 03/24/2024 10:38 AM EST Body Mass Index 29.01 03/24/2024 10:38 AM EST Plan of Treatment Upcoming Encounters Date Type Department Care Team (Late st Contact Info) Description 09/29/2024 10:30 AM EDT Office Visit [facility] [address] [place] [address] Otis Jiménez, DO [address], [address] [place], [place] [phone] Health Maintenance Due Date Last Done Comments DTaP,Tdap and Td Vaccines (1 - Tdap) 1959 Medicare Annual Wellness Visit 06/23/2024 06/24/2023 Influenza Vaccine 11/20/2024 05/09/2021, , 01/06/2018, Additional history exists Tobacco Screening 12/08/2024 12/09/2023 Depression Screening 03/24/2025 03/24/2024 Fall Risk Screening 03/24/2025 03/24/2024 Zoster (Shingles) Vaccine Completed 2021, 07/22/2021, 04/30/2018, Additional history exists COVID-19 Vaccine Discontinued 05/25/2022, 07/2020, 07/05/2020, Additional history exists Medical Devices Not on file Procedures Procedure Name Priority Date/Time Associated Diagnosis Comments XR SHOULDER RT MIN 2 VWS Routine 06/22/2024 8:27 AM EDT AMB REFERRAL TO PAIN MANAGEMENT Routine 05/31/2024 3:48 PM EDT Lumbar spondylosis Spinal stenosis of lumbar region, unspecified whether neurogenic claudication present from Last 3 Months Results * X-ray shoulder right minimum 2 views (06/22/2024 8:27 AM EDT) Anatomical Region Laterality Modality MSK, Upper Extremities, Shoulder Right Computed Radiography us Not In System Ref Prov IMG DIAGNOSTIC IMAGING OR DERABLES Final Result * Ambulatory referral to Pain Management ([facility]) (05/31/2024 3:48 PM EDT) us Otis Jiménez DO OUTPATIENT REFERRAL ORDERABL ES Final Result MANUALLY TRANSCRIBED RESULTS from Last 3 Months Insurance [employer] Care Teams Security Alarm Installer Relationship Specialty Start Date End Date Otis Jiménez DO [address] [place] [address] PCP - General Family Medicine 10/03/21
--- OUTSIDE RECORDS SUMMARY | 2024-08-21 11:00 | XMS_ITS | Encounter Summary ---
Author Organization [facility] tem Address [id number] [address] [place] [address] Care Team Providers Care Barrel Washer Machine Name Role Phone Otis Jiménez DO Primary Care Provider [phone] Encounter Details Date Type Department Care Team (Late Contact Info) Description 04/22/2022 Telephone [facility] [address] [place] [phone] Pearl Hagan, RN Social History Tobacco Use Types Packs/Day Years Used Date Smoking Tobacco: Former Cigarettes Smokeless Tobacco: Never Comments:only smoked for 3 m onths 58 years ago, 2 cigarettes a day Alcohol Use Standard Drinks/Week Comments Not Currently 0 (1 standard drink = 0.6 oz pur e alcohol) rare- on new years clive Childcare Answer Date Recorded Childcare Unknown 08/31/2018 Employment Answer Date Recorded Employment Unknown 08/31/2018 Purpose - Life Answer Date Recorded Purpose and direction in life Unknown Comments No Sex and Gender Information Value Date Recorded Sex Assigned at Not on file Legal Sex Female 11:26 AM EDT Gender Identity Not on file Sexual Orientation Not on file COVID-19 Exposure Response Date Recorded In the last month, have you been in contact with someone who was confirmed or suspected to have Coronavirus / COVID-19? No / Unsure 04/22/2022 1:42 PM EST documented as of this encounter Plan of Treatment Upcoming Encounters Date Type Department Care Team (Late Contact Info) Description 09/29/2024 10:30 AM EDT Office Visit [facility] [address] [place] [address] Otis Jiménez DO [address], [place] [address] documented as of this encounter Visit Diagnoses Not on filedocumented in this encounter Care Teams Barrel Washer Machine Relationship Specialty Start Date End Date Otis Jiménez DO [address], [place] [address] PCP - General Family Medicine 10/03/21 documented as of this encounter
--- OUTSIDE RECORDS SUMMARY | 2024-08-21 11:00 | XMS_ITS | Encounter Summary ---
Author Organization [employer] Sys tem Address [facility] [id number] [address] [place] [address] Care Team Providers Care Waste Hand Name Role Phone Otis Jiménez Primary Care Provider + [phone] Encounter Details Date Type Department Care Team (Late st Contact Info) Description 08/19/2023 Telephone [facility] - Family Medicine [address] [phone] Suyapa Dorsey CMA Social History Tobacco Use Types Packs/Day Years Used Date Smoking Tobacco: Former Cigarettes Smokeless Tobacco: Never Comments:only smoked for 3 m [facility] 60 years ago, 2 cigarettes a day Alcohol Use Standard Drinks/Week Comments Not Currently 0 (1 standard drink = 0.6 oz pur e alcohol) rare- on new years clive [facility] Utilities Answer Date Recorded In the past 12 months has [employer], gas, oil, or water company threatened [...] often do you attend chur ch or tenriism services? More than 4 times per year 06/24/2023 Do you belong to any clubs o r organizations such as samaritan groups, unions, fraternal or athletic groups, or [...] PHQ-2 Answer Date Recorded Total Score 0 07/29/2023 [facility] of Occupat ional [facility] - Occupational Stress Questionnaire Answer Date Recorded [...] Recorded Do you need help finding a [facility] and/or a training program? No 06/24/2023 Hunger Screening Answer Date Recorded Within the past 12 months we worried whether our food would run out before we got money to buy more. Never True 07/29/2023 Within the past 12 months th e food we bought just didn't last and we didn't have money to get more. Never True 07/29/2023 Purpose - Life Answer Date Recorded I have a purpose and direction in my life. Agree 06/24/2023 Comments No Sex and Gender Information Value Date Recorded Sex Assigned at Not on file Legal Sex Female 11:26 AM EDT Gender Identity Not on file Sexual Orientation Not on file documented as of this encounter Miscellaneous Notes * Telephone Encounter - Suyapa Dorsey CMA - 08/19/2023 10:28 AM EDT [facility] Pain Management called (Monique) called and stated they had concerns to patient confusion getting worse and driving to appointments. called 5x yesterday to see when her apt was and the staff repeated to her and she understood and then called today and again they gave her information. Then patient showed up today for an apt and it was for next week. * Telephone Encounter - Otis Jiménez DO - 08/19/2023 10:28 AM EDT Notify her daughter who is the alternate contact. She should probably be driving her * Telephone Encounter - Suyapa Dorsey CMA - 08/19/2023 10:28 AM EDT Lm to Cb * Telephone Encounter - Suyapa Dorsey CMA - 08/19/2023 10:28 AM EDT Spoke to her Daughter and she said she just leaves early if she knows she has an appointment. She just leaves without her. She thinks she is fine to drive. Her daughter would take her keys but then her mom probably will take away her being POA. So if you feel she is not capable to drive then a statement needs to be written up with your signature. * Telephone Encounter - Otis Jiménez DO - 08/19/2023 10:28 AM EDT Since we need to do that I am going to get a consult with Dr. Dover for a neurocognitive evaluation * Telephone Encounter - Suyapa Dorsey CMA - 08/19/2023 10:28 AM EDT Left message for patient daughter to call. * Telephone Encounter - Suyapa Dorsey CMA - 08/19/2023 10:28 AM EDT Spoke to daughter and she will be waiting for the call from [facility] documented in this encounter Plan of Treatment Upcoming Encounters Date Type Department Care Team (Late st Contact Info) Description 09/29/2024 10:30 AM EDT Office Visit [facility] - Family Medicine [address] [place] [address] Otis Jiménez DO [address], [facility] [place] [address] documented as of this encounter Visit Diagnoses Not on filedocumented in this encounter Additional Health Concerns Assessment Noted Time PHQ-9 Depression Total Score: 0 07/29/19 24 3:47 PM EDT documented as of this encounter Care Teams Waste Hand Relationship Specialty Start Date End Date Otis Jiménez DO [address], [facility] [place] [address] PCP - General Family Medicine 10/03/21 documented as of this encounter
--- OUTSIDE RECORDS SUMMARY | 2024-08-21 11:00 | XMS_ITS | Encounter Summary ---
Author Organization [facility] [employer] [facility] tem Address [facility] [id number] [address] [place] [address] Care Team Providers Care Fulling Machine Operator Name Role Phone Otis Jiménez DO Primary Care Provider [phone] Encounter Details Date Type Department Care Team (Late Contact Info) Description 01/19/2022 Telephone [facility] - W[facility] Care Clinic [address] [place] [phone] Pearl Hagan, RN Social History Tobacco Use [...] have Coronavirus / COVID-19? No / Unsure 01/21/2022 2:19 PM EDT documented as of this encounter Plan of Treatment Upcoming Encounters Date Type Department Care Team (Late st Contact Info) Description 09/29/2024 10:30 AM EDT Office Visit [facility] Internal Medicine - Family Medicine [address] [place] [address] Otis Jiménez DO [address], [place] [address] documented as of this encounter Visit Diagnoses Not on filedocumented in this encounter Care Teams Fulling Machine Operator Relationship Specialty Start Date End Date Otis Jiménez DO [address], [facility] [place] [address] PCP - General Family Medicine 10/03/21 documented as of this encounter
--- OUTSIDE RECORDS SUMMARY | 2024-08-21 11:00 | XMS_ITS | Encounter Summary ---
Author Organization [facility] [employer] [facility] tem Address [facility][id number] [address] [place] [address] Care Team Providers Care Bundle Helper Name Role Phone Otis Jiménez DO Primary Care Provider [phone] Encounter Details Date Type Department Care Team (Late Contact Info) Description 12/09/2021 Telephone [facility] - Wound Care Clinic [address] [place] [address] Pearl Hagan, RN Social History Tobacco Use [...] have Coronavirus / COVID-19? No / Unsure 12/12/2021 2:00 PM EDT documented as of this encounter Plan of Treatment Upcoming Encounters Date Type Department Care Team (Late Contact Info) Description 09/29/2024 10:30 AM EDT Office Visit [facility] Internal Medicine - Family Medicine [address] [place] [address] Otis Jiménez DO [address], [place] [address] documented as of this encounter Visit Diagnoses Not on filedocumented in this encounter Care Teams Bundle Helper Relationship Specialty Start Date End Date Otis Jiménez DO [address], [facility] [place] [address] PCP - General Family Medicine 10/03/21 documented as of this encounter
--- OUTSIDE RECORDS SUMMARY | 2024-08-21 11:00 | XMS_ITS | Encounter Summary ---
Author Organization [employer] Sys tem Address [facility] [place]-[id number] [address] [place] [address] Care Team Providers Care Transportation Agent Name Role Phone Otis Jiménez DO Primary Care Provider + [phone] Encounter Details Date Type Department Care Team (Late st Contact Info) Description 04/19/2023 Orders Only [facility] - Family Medicine [address] [place] [phone] Veronica Nowak, ICE CREAM TRUCK DRIVER-TANK FARM ATTENDANT [address] [place], [place] [id number] PMR (polymyalgia rheumatica) ([facility]); Bilateral hip pain Social History Tobacco Use Types Packs/Day Years Used Date Smoking Tobacco: Former Cigarettes Smokeless Tobacco: Never Comments:only smoked for 3 m [facility] 60 years ago, 2 cigarettes a day Alcohol Use Standard Drinks/Week Comments Not Currently 0 (1 standard drink = 0.6 oz pur e alcohol) rare- on new years clive PHQ-2 Answer Date Recorded Total Score 0 12/23/2022 Childcare Answer Date Recorded Childcare Unknown 08/31/2018 Employment Answer Date Recorded Employment Unknown 08/31/2018 Hunger Screening Answer Date Recorded Within the past 12 months we worried whether our food would run out before we got money to buy more. Never True 12/23/2022 Within the past 12 months th e food we bought just didn't last and we didn't have money to get more. Never True 12/23/2022 Purpose - Life Answer Date Recorded Purpose and direction in life Unknown Comments No Sex and Gender Information Value Date Recorded Sex Assigned at Not on file Legal Sex Female 11:26 AM EDT Gender Identity Not on file Sexual Orientation Not on file documented as of this encounter Plan of Treatment Upcoming Encounters Date Type Department Care Team (Late st Contact Info) Description 09/29/2024 10:30 AM EDT Office Visit [facility] - Family Medicine [address] [place] [address] Otis Jiménez DO [address], [facility] [place] [address] documented as of this encounter Procedures Procedure Name Priority Date/Time Associated Diagnosis Comments AMB REFERRAL TO PAIN MANAGEMENT Routine 04/19/2023 PMR (polymyalgia rheumatica) (CMS-HCC) Bilateral hip pain documented in this encounter Results * Ambulatory referral to Pain Management ([facility]) (04/19/2023) us Veronica Nowak ICE CREAM TRUCK DRIVER-TANK FARM ATTENDANT OUTPATIENT REFERRAL ORDERAB LES Final Result MANUALLY TRANSCRIBED RESULTS documented in this encounter Visit Diagnoses Diagnosis PMR (polymyalgia rheumatica) Polymyalgia rheumatica Bilateral hip pain Pain in joint, pelvic region and thigh documented in this encounter Additional Health Concerns Assessment Noted Time PHQ-9 Depression Total Score: 0 12/24/19 23 1:14 PM EDT documented as of this encounter Care Teams Transportation Agent Relationship Specialty Start Date End Date Otis Jiménez DO [address] [place] [address] PCP - General Family Medicine 10/03/21 documented as of this encounter
--- OUTSIDE RECORDS SUMMARY | 2024-08-21 11:00 | XMS_ITS | Encounter Summary ---
Author Organization [employer] Sys tem Address [facility] [place][id number] [address] [place] [address] Care Team Providers Care Pr Manager Name Role Phone Otis Jiménez Primary Care Provider + [phone] Encounter Details Date Type Department Care Team (Late st Contact Info) Description 07/12/2024 Orders Only [facility] - Family Medicine [address] [place] [address] Ref Prov, [place] [address] Social History Tobacco Use Types Packs/Day Years Used Date Smoking Tobacco: Former Cigarettes Smokeless Tobacco: Never Comments:only smoked for 3 m onths 60 years ago, 2 cigarettes a day Alcohol Use Standard Drinks/Week Comments Not Currently 0 (1 standard drink = 0.6 oz pur e alcohol) rare- on new years clive [facility] Utilities Answer Date Recorded In the past [...] often do you attend chur ch or mormon services? More than 4 times per year 06/24/2023 Do you belong to any clubs o r organizations such as anabaptism groups, unions, fraternal or athletic groups, or [...] Answer Date Recorded Total Score 0 03/24/2024 [facility] of Occupat ional Health - Occupational Stress [...] Recorded Do you need help finding a [facility] and/or a training program? No [...] - Family Medicine [address] [place] [address] Otis Jiménez DO [address], [facility] [place] [address] documented as of this encounter Procedures Procedure Name Priority Date/Time Associated Diagnosis Comments XR SHOULDER RT MIN 2 VWS Routine 06/22/2024 8:27 AM EDT documented in this encounter Results * X-ray shoulder right minimum 2 views (06/22/2024 8:27 AM EDT) Anatomical Region Laterality Modality MSK, Upper Extremities, Shoulder Right Computed Radiography us Not In System Ref Prov IMG DIAGNOSTIC IMAGING OR DERABLES Final Result documented in this encounter Visit Diagnoses Not on filedocumented in this encounter Additional Health Concerns Assessment Noted Time PHQ-9 Depression Total Score: 0 03/24/19 25 10:36 AM EST documented as of this encounter Care Teams Pr Manager Relationship Specialty Start Date End Date Otis Jiménez DO [address] [place] [address] PCP - General Family Medicine 10/03/21 documented as of this encounter
--- OUTSIDE RECORDS SUMMARY | 2024-08-21 11:00 | XMS_ITS | Encounter Summary ---
Author Organization [employer] Sys [employer] Address [facility] [place]-[id number] [address] [place] [address] Care Team Providers Care Meat Department Manager Name Role Phone Otis Jiménez DO Primary Care Provider + [phone] Encounter Details Date Type Department Care Team (Late st Contact Info) Description 11/05/2022 Telephone [facility] - Family Medicine [address] [place] [phone] Suyapa Dorsey CMA Social History Tobacco Use Types Packs/Day Years Used Date Smoking Tobacco: Former Cigarettes Smokeless Tobacco: Never Comments:only smoked for 3 m [facility] 60 years ago, 2 cigarettes a day Alcohol Use Standard Drinks/Week Comments Not Currently 0 (1 standard drink = 0.6 oz pur e alcohol) rare- on new years clive PHQ-2 Answer Date Recorded Total Score 0 08/26/2022 Childcare Answer Date Recorded Childcare Unknown 08/31/2018 [...] Telephone Encounter - Suyapa Dorsey CMA - 11/05/2022 10:00 AM EDT Patient called stating she thought she broke her arm. I asked the clinical staff and they stated that she should go to the ER. I instructed her to do so and she said she would be going to [facility]. * Telephone Encounter - Otis Jiménez DO - 11/05/2022 10:00 AM EDT Yes, definitely the ER documented in this encounter Plan of Treatment Upcoming Encounters Date Type Department Care Team (Late st Contact Info) Description 09/29/2024 10:30 AM EDT Office Visit [facility] - Family Medicine [address] [place] [address] Otis Jiménez DO [address], [facility] [place] [address] documented as of this encounter Visit Diagnoses Not on filedocumented in this encounter Additional Health Concerns Assessment Noted Time PHQ-9 Depression Total Score: 0 08/27/19 10:51 AM EDT documented as of this encounter Care Teams Meat Department Manager Relationship Specialty Start Date End Date Otis Jiménez DO [address] [place] [address] PCP - General Family Medicine 10/03/21 documented as of this encounter
--- OUTSIDE RECORDS SUMMARY | 2024-08-21 11:00 | XMS_ITS | Clinical Summary ---
Author Organization [facility] [employer] Address [address] [place] [address] [place] [address] Care Team Providers Care Presser First Name Role Phone Yariel Sharma MD Primary Care Provider Luanne wiley Allergies Active Allergy Reactions Criticality Noted Date Comments Seasonal 06/18/2015 Medications metoprolol succinate 50 MG tablet XL take 50 mg by mouth daily. Active hydrochlorothia zide 25 MG Tab take 25 mg by mouth daily. Active aspirin 81 MG Chew Tab take 81 mg by mouth daily. Active Zolpidem Tartrate 5 MG Tab SL by Sublingual route. Active potassium chloride 25 MEQ Pack take 25 mEq by mouth once. Active celecoxib 200 MG Cap take 1 capsule by mouth 2 times daily as needed. 10 capsule 0 6 Active docusate 100 MG Cap take 1 capsule by mouth 2 times daily. 30 capsule 0 6 Active oxyCODONE 5 MG TabIndications: Post-operative pain take 1 tablet by mouth every 4 hours as needed for Moderate Pain. 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 16 Left shoulder pain 04/25/2015 Family History Medical History Relation Name Comments Heart Failure Father Bleeding or Clotting Problems Mother Diabetes Paternal Grandfather Aneurysm Neg Hx Cancer- Other Neg Hx Dysrhythmia Neg Hx Heart Disease - Other Neg Hx Hypertension Neg Hx Myocardial Infarction Neg Hx Stroke Neg Hx Relation Name Status Comments Father Mother Paternal Grandfather Social History Tobacco Use Types Packs/Day Years Used Date Smoking Tobacco: Former Cigarettes Q uit: 05/20/1974 Alcohol Use Standard Drinks/Week Comments No 0 (1 standard drink = 0.6 oz pur e alcohol) Comments Unknown Sex and Gender Information Value Date Recorded Sex Assigned at Not on file Legal Sex Female 10:05 AM EST Gender Identity Female Sexual Orientation Not on file Last Filed Vital Signs Vital Sign Reading Time Taken Comments Blood Pressure 124/83 06/21/2015 7:41 AM EDT Pulse 91 06/21/2015 7:41 AM EDT Temperature 37.1 C (98.8 F) 06/21/2015 7:41 AM EDT Respiratory Rate 16 06/21/2015 7:41 AM EDT Oxygen Saturation 94% 06/21/2015 7:48 AM EDT Inhaled Oxygen Concentration - - Weight 102.1 kg (225 lb) 06/18/2015 8:00 PM EDT Height 167.6 cm (5' 6 ) 06/18/2015 8:00 PM EDT Body Mass Index 36.32 06/18/2015 8:00 PM EDT Plan of Treatment Health Maintenance Due Date Last Done Comments DEXA SCAN DISCUSSION 1938 TETANUS 1938 TDAP (ADULT) 1957 CERVICAL CANCER SCREENING DISCUSSION 1959 MAMMOGRAM SCREENING DISCUSSION 1978 COLORECTAL CANCER SCREENING DISCUSSION 1983 RSV VACCINE (1 - 1-dose 75+ series) 2013 PNEUMOCOCCAL VACCINE SERIES (2 of 2 - PCV) 04/27/2017 04/27/2016, 12/18/2014 COVID-19 VACCINE ( - season) 2023 INFLUENZA VACCINE (Season Ended) 2024 05/09/2021, 05/02/2018, 01/06/2018, Additional history exists POTASSIUM Discontinued 06/20/2015, 05/22, 05/21/2015 ZOSTER (SHINGLES) VACCINE Completed 2021, 07/22/2021, 04/30/2018, Additional history exists HEP B VACCINE Aged Out No longer elig ible based on patient's age to complete this topic Medical Devices Implanted Type Area Wind Energy Engineer Device Identifier Shelf Expiration Date Model / Serial / Lot [id number] Nallatech Ic Graft Chamber 5cc Implanted:Qty: 1 on 06/18/2015 by Lola Grady MD at [facility] Explanted:at [facility] (Quantity not on file) Left: Shoulder HUMAN TISSUE 01/09/2018 [id number] / [id number] / Poly Liner Plus 0 Mm Offset 36mm Diameter Implanted:Qty: 1 on 06/18/2015 by Lola Grady MD at [facility] Left: Shoulder ROBLES BIOMET 4349 6-00 / / [id number] Inverse/Reverse Screw System 4.5-30 Implanted:Qty: 1 on 06/18/2015 by Lola Grady MD at [facility] Left: Shoulder ROBLES BIOMET 69231.0 30 / / [id number] Base Plate 15mm Implanted:Qty: 1 on 06/18/2015 by Lola Grady MD at [facility] Left: Shoulder [employer] 5 / / [id number] Inverse/Reverse Screw System 4.5-42 Implanted:Qty: 1 on 06/18/2015 by Lola Grady MD at [facility] Left: Shoulder ROBLES BIOMET 23.0 42 / / [id number] Glenosphere 36mm Implanted:Qty: 1 on 06/18/2015 by Lola Grady MD at [facility] Left: Shoulder RO[employer]ES BIOMET 9 6 / / [id number] Humeral Stem 12mm X 130mm Implanted:Qty: 1 on 06/18/2015 by Lola Grady MD at [facility] Left: Shoulder RO[employer]ES BIOMET 05-04 / / [id number] Radiopaque 11mm Implanted:Qty: 1 on 06/18/2015 by Lola Grady MD at [facility] Left: Shoulder ROBLES BIOMET 1109-11 / / [id number] Procedures Procedure Name Priority Date/Time Associated Diagnosis Comments CHEM 7 (LYTES,BUN,CREA,GLU C) Routine 06/20/2015 5:00 AM EDT from Last 3 Months or Most Recently Relevant to Health Maintenance Results * (ABNORMAL) CHEM 7 (LYTES,BUN,CREA,GLUC) (06/20/2015 5:00 AM EDT) BUN 10 7 - 22 mg/dL [facility] SODIUM 136 133 - 143 mmol/L [facility] Potassium 3.1(L) 3.5 - 5.0 mmol/L [facility] CHLORIDE 100 98 - 108 mmol/L [facility] CARBON DIOXIDE (CO2) 31(H) 22 - 30 mmol/L [facility] Glucose 106(H) 70 - 99 mg/dL LAB, [facility] CREATININE SERUM 0.60 0.50 - 1.20 mg/dL LAB, [facility] ANION GAP 8 7 - 17 mmol/L [facility] BUN/CREA RATIO 17 [facility] OSMOLALITY (CALC) 283 278 - 305 mOsm/kg [facility] ESTIMATED GFR, NON AMER >60 >60 mL/min/1.7 3sqM LAB, [facility] ESTIMATED GFR, >60 >60 mL/min/1.7 3sqM LAB, [facility] 06/20/2015 5:00 AM EDT 06/20/2015 6:08 AM EDT Stephen YARBROUGH CHEMISTRY ORDERABLES Final Re sult LAB, [facility] [address] [place] [address] from Last 3 Months or Most Recently Relevant to Health Maintenance Insurance MEDICARE A AND B Advance Directives For more information, please contact: [phone] (7:30 AM - 6PM Marilyn/[facility], Wednesday-Wednesday) * Full Code (Latest Code Status on File) Date Activated Date Inactivated Comments 06/18/2015 8:04 PM 06/21/2015 6:23 PM Care Teams Presser First Relationship Specialty Start Date End Date Yariel Sharma MD PCP - General Internal Medicine 05/21/15
--- OUTSIDE RECORDS SUMMARY | 2024-08-21 11:00 | XMS_ITS | Encounter Summary ---
Author Organization [employer] Sys [employer] Address [facility] [place][id number] [address] [place] [address] Care Team Providers Care Verifier Name Role Phone Otis Jiménez Primary Care Provider + [phone] Encounter Details Date Type Department Care Team (Late st Contact Info) Description 05/19/2024 Telephone [facility] - Family Medicine [address] [place] [phone] Demetrio Huitron CMA Social History Tobacco Use Types Packs/Day Years Used Date Smoking Tobacco: Former Cigarettes Smokeless Tobacco: Never Comments:only smoked for 3 m [facility] 60 years ago, 2 cigarettes a [...] often do you attend chur ch or jew services? More than 4 times per year 06/24/2023 Do you belong to any clubs o r organizations such as congregational groups, unions, fraternal or athletic groups, or [...] Answer Date Recorded Total Score 0 03/24/2024 [facility] of Occupat ional Health - Occupational Stress [...] Do you need help finding a [facility] and/or a training program? [...] encounter Miscellaneous Notes * Telephone Encounter - Demetrio Huitron CMA - 05/19/2024 10:47 AM EST Pt called and would like to go back to pain Mangement so she can start getting injections in her back and neck.She would like you to place a order since it is a long time ago. documented in this encounter Plan of Treatment Upcoming Encounters Date Type Department Care Team (Late st Contact Info) Description 09/29/2024 10:30 AM EDT Office Visit [facility] - Family Medicine [address] [place] [address] Otis Jiménez DO [address] [address] documented as of this encounter Visit Diagnoses Not on filedocumented in this encounter Additional Health Concerns Assessment Noted Time PHQ-9 Depression Total Score: 0 03/24/19 25 10:36 AM EST documented as of this encounter Care Teams Verifier Relationship Specialty Start Date End Date Otis Jiménez DO [address] [facility] [address] PCP - General Family Medicine 10/03/21 documented as of this encounter
--- OUTSIDE RECORDS SUMMARY | 2024-08-21 11:00 | XMS_ITS ---
Author Organization [facility] Address [id number] [address] [place] [address] Care Team Providers Care Plastic Panel Installer Name Role Phone Otis Jiménez Primary Care Provider [phone] Active Problems Problem Noted Date Diagnosed Date [...] pericardium 01/08/2012 Obstructive sleep apnea syndrome 12/21/2007 Current Treatment and Therapy Plans No current plan information found. Other Current Plans AMBULATORY WOUND CARE* Plan Start Date:05/13/2022 Plan Provider:ANGIE Bull Treatment Medications No medications scheduled. Past Treatment and Therapy Plans Resolved Problems Problem Noted Date Diagnosed Date [...]
--- OUTSIDE RECORDS SUMMARY | 2024-08-21 11:00 | XMS_ITS | Clinical Summary ---
Author Organization [facility] Address [address] [place], [place] [id number] Care Team Providers Care Warehouse Material Handler Name Role Phone Yariel Sharma MD Primary Care Provider [phone] Allergies Active Allergy Reactions Criticality Noted Date Comments Adhesive Tape (Rosins) Rash Low 06/28/2012 Medications KLOR-CON M20 20 mEq tablet Take 20 mEq by mouth once daily. 07/25/19 14 Active celecoxib (CELEBREX) 200 mg capsule Take 200 mg by mouth once daily. 06/27/19 15 Active sertraline (ZOLOFT) 50 mg tablet Take 50 mg by mouth as needed. Active Potassium Bicarb-Citric Acid (K-LYTE) 25 mEq disintegrating tablet Take 25 mEq by mouth. Active metoprolol succinate ER (TOPROL XL) 50 mg 24 hr tablet 25 mg once daily. 10/13/19 19 Active Potassium Chloride 25 mEq pack Take 25 mEq by mouth. Active terbinafine HCl (LAMISIL) 250 mg tablet terbinafine HCl 250 mg tablet Active estradiol (ESTRACE) 0.01 % (0.1 mg/gram) vaginal cream Use 1 g vaginally two times a week. 42.5 g 3 05/01/19 21 Active Active Problems Problem Noted Date Diagnosed Date History of breast cancer 01/10/2014 Breast CA 06/28/2012 Social History Tobacco Use Types Packs/Day Years Used Date Smoking Tobacco: Former Smokeless Tobacco: Never Alcohol Use Standard Drinks/Week Comments Not Asked 0 (1 standard drink = 0.6 oz pur e alcohol) Area Deprivation Index Answer Date Robert rded National Score (1-100), lower number is lower ri sk Not on file 02/24/2020 State Score (1-10), lower number is lower risk N ot on file 02/24/2020 Data from: https://www.neighborhoodatlas.[facility].edu/. Last address used for calculation Not on file 02/24/2020 Comments No Sex and Gender Information Value Date Recorded Sex Assigned at Not on file Legal Sex Female 7:35 AM EST Gender Identity Not on file Sexual Orientation Not on file Last Filed Vital Signs Vital Sign Reading Time Taken Comments Blood Pressure 141/67 05/30/2020 6:32 PM EST Pulse 101 05/30/2020 6:32 PM EST Temperature 36.3 C (97.3 F) 05/01/2020 5:00 PM EST Respiratory Rate 15 05/01/2020 5:00 PM EST Oxygen Saturation 98% 05/01/2020 5:00 PM EST Inhaled Oxygen Concentration - - Weight 98.4 kg (217 lb) 05/30/2020 6:32 PM EST p er pt Height 167.6 cm (5' 6 ) 01/09/2020 12:49 PM EDT Body Mass Index 35.02 01/09/2020 12:49 PM EDT Plan of Treatment Health Maintenance Due Date Last Done Comments Anxiety Screening 02/24/1958 Depression Screening 02/24/1958 DTaP,Tdap,Td Vaccine (1 - Tdap) 1957 Diabetes Screening 1983 Pneumococcal Vaccine: 50+ (1 of 1 - PCV) 02/24/1988 Shingrix Vaccine (1 of 2) 02/24/1988 Bone Density Screening 2003 RSV Vaccine (1 - 1-dose 75+ series) 2013 Covid-19 Vaccine ( - season) 2023 Advance Directive Discussion 03/22/2024 Influenza Vaccine (Season Ended) 2024 Insurance MEDICARE [facility] [place] [facility] [place] Care Teams Warehouse Material Handler Relationship Specialty Start Date End Date Yariel Sharma MD PCP - General Internal Medicine 07/09/14
--- OUTSIDE RECORDS SUMMARY | 2024-08-21 11:00 | XMS_ITS | Encounter Summary ---
Author Organization [facility] [employer] [facility] tem Address [facility] [id number] [address] [place] [address] Care Team Providers Care Wheelchair Van Driver Name Role Phone Otis Jiménez DO Primary Care Provider [phone] Encounter Details Date Type Department Care Team (Late Contact Info) Description 01/02/2022 Telephone [facility] [address] [place] [phone] Marychuy Ly CNA Social History Tobacco Use Types Packs/Day Years [...] have Coronavirus / COVID-19? No / Unsure 01/01/2022 2:06 PM EDT documented as of this encounter Plan of Treatment Upcoming Encounters Date Type Department Care Team (Late Contact Info) Description 09/29/2024 10:30 AM EDT Office Visit [facility] Physicians Internal Medicine - Family Medicine [address] [place] [address] Otis Jiménez DO [address], [place] [address] documented as of this encounter Visit Diagnoses Not on filedocumented in this encounter Care Teams Wheelchair Van Driver Relationship Specialty Start Date End Date Otis Jiménez DO [address], [place] [address] PCP - General Family Medicine 10/03/21 documented as of this encounter
--- OUTSIDE RECORDS SUMMARY | 2024-08-21 11:00 | XMS_ITS | Encounter Summary ---
Author Organization [employer] [facility] Address [id number] [address] [place] [address] Care Team Providers Care Bobbin Marker Name Role Phone Otis Jiménez DO Primary Care Provider + [phone] Encounter Details Date Type Department Care Team (Late st Contact Info) Description 05/31/2024 Orders Only [facility] Internal Medicine - Family Medicine [address] [place] [address] Coral Hood CMA Lumbar spondylosis; Spinal stenosis of lumbar region, unspecified whether neurogenic claudication present Social History Tobacco Use Types Packs/Day Years Used Date Smoking Tobacco: Former Cigarettes Smokeless Tobacco: Never Comments:only smoked for 3 m [facility] 60 years ago, 2 cigarettes a day Alcohol Use Standard Drinks/Week Comments Not Currently 0 (1 standard drink = 0.6 oz pur e alcohol) rare- on new years clive [facility] Utilities Answer Date Recorded In the past 12 months has [employer], gas, oil, or water company threatened [...] often do you attend chur ch or sabianism services? More than 4 times per year 06/24/2023 Do you belong to any clubs o r organizations such as buddhist groups, unions, fraternal or athletic groups, or [...] Answer Date Recorded Total Score 0 03/24/2024 [facility] - Occupational [...] Recorded Do you need help finding a [place] [employer] career center and/or a training program? No [...] Medicine [address] [place] [address] Otis Jiménez DO [address], [place] [address] documented as of this encounter Procedures Procedure Name Priority Date/Time Associated Diagnosis Comments AMB REFERRAL TO PAIN MANAGEMENT Routine 05/31/2024 3:48 PM EDT Lumbar spondylosis Spinal stenosis of lumbar region, unspecified whether neurogenic claudication present documented in this encounter Results * Ambulatory referral to Pain Management ([facility]) (05/31/2024 3:48 PM EDT) us Otis Jiménez DO OUTPATIENT REFERRAL ORDERABL ES Final Result MANUALLY TRANSCRIBED RESULTS documented in this encounter Visit Diagnoses Diagnosis Lumbar spondylosis Lumbosacral spondylosis without myelopathy Spinal stenosis of lumbar region, unspecified whether neurogenic claudication present documented in this encounter Additional Health Concerns Assessment Noted Time PHQ-9 Depression Total Score: 0 03/24/19 25 10:36 AM EST documented as of this encounter Care Teams Bobbin Marker Relationship Specialty Start Date End Date Otis Jiménez DO [address], [place] [address] PCP - General Family Medicine 10/03/21 documented as of this encounter
--- OUTSIDE RECORDS SUMMARY | 2024-08-21 11:00 | XMS_ITS | Clinical Summary ---
Author Organization [facility] Address [address] [place] [address] Phone Care Team Providers Care Hardware Test Engineer Name Role Phone Unavailable Primary Care Provider Unavailabl e Social History Tobacco Use Types Packs/Day Years Used Date Smoking Tobacco: Never Assessed Comments Unknown Sex and Gender Information Value Date Recorded Sex Assigned at Not on file Legal Sex Female 5:50 AM EST Gender Identity Not on file Sexual Orientation Not on file Plan of Treatment Not on file
--- OUTSIDE RECORDS SUMMARY | 2024-08-21 11:00 | XMS_ITS | Encounter Summary ---
Author Organization [facility] tem Address [id number] [address] [place] [address] Care Team Providers Care Equipment Cleaner Name Role Phone Otis Jiménez DO Primary Care Provider [phone] Encounter Details Date Type Department Care Team (Late Contact Info) Description 12/16/2021 Telephone [facility] - [facility] Care [facility] [address] [place] [phone] Pearl Hagan, RN Social History Tobacco Use [...] have Coronavirus / COVID-19? No / Unsure 12/17/2021 2:04 PM EDT documented as of this encounter Plan of Treatment Upcoming Encounters Date Type Department Care Team (Late st Contact Info) Description 09/29/2024 10:30 AM EDT Office Visit [facility] Physicians Internal Medicine - Family Medicine [address] [place] [address] Otis Jiménez DO [address], [place] [address] documented as of this encounter Visit Diagnoses Not on filedocumented in this encounter Care Teams Equipment Cleaner Relationship Specialty Start Date End Date Otis Jiménez DO [address], [facility] [place] [address] PCP - General Family Medicine 10/03/21 documented as of this encounter
--- OUTSIDE RECORDS SUMMARY | 2024-08-21 11:00 | XMS_ITS | Encounter Summary ---
Author Organization [facility] Address [id number] [address] [place] [address] Care Team Providers Care Adjuster Piano Action Name Role Phone Otis Jiménez Primary Care Provider + [phone] Encounter Details Date Type Department Care Team (Late st Contact Info) Description 07/02/2023 Orders Only [facility] Internal Medicine - Family Medicine [address] [place] [address] External, Scanning Provider Social History Tobacco Use Types Packs/Day Years Used Date Smoking Tobacco: Former Cigarettes Smokeless Tobacco: Never Comments:only smoked for [address] [facility] 60 years ago, 2 cigarettes a day Alcohol Use Standard Drinks/Week Comments Not Currently 0 (1 standard drink = 0.6 oz pur e alcohol) rare- on new years clive [facility] Utilities Answer Date Recorded In [...] often do you attend chur ch or mormonism services? More than 4 times per year 06/24/2023 Do you belong to any clubs o r organizations such as voodoo groups, unions, fraternal or athletic groups, or [...] PHQ-2 Answer Date Recorded Total Score 0 06/24/2023 [facility] - Occupational Stress [...] Recorded Do you need help finding a [facility] career center and/or a training program? No 06/24/2023 Hunger Screening Answer Date Recorded Within the past 12 months we worried whether our food would run out before we got money to buy more. Never True 06/24/2023 Within the past 12 months th e food we bought just didn't last and we didn't have money to get more. Never True 06/24/2023 Purpose - Life Answer Date Recorded I [...] - Family Medicine [address] [place] [address] Otis Jiménez DO [address] [facility] [place] [address] documented as of this encounter Procedures Procedure Name Priority Date/Time Associated Diagnosis Comments MR LUMBAR SPINE WO CONT Routine 07/01/2023 9:54 AM EDT documented in this encounter Results * MR lumbar spine without contrast (07/01/2023 9:54 AM EDT) Anatomical Region Laterality Modality MSK, Neuro, Spine, L-spine, Spine Covera N/A Magnetic Resonance us Scanning Provider External IMG MRI ORDERABLES Fi nal Result documented in this encounter Visit Diagnoses Not on filedocumented in this encounter Additional Health Concerns Assessment Noted Time PHQ-9 Depression Total Score: 0 06/24/19 24 4:26 PM EDT documented as of this encounter Care Teams Adjuster Piano Action Relationship Specialty Start Date End Date Otis Jiménez DO [address] [facility] [place] [address] PCP - General Family Medicine 10/03/21 documented as of this encounter
--- OUTSIDE RECORDS SUMMARY | 2024-08-21 11:00 | XMS_ITS | Encounter Summary ---
Author Organization [facility] [employer] [facility] tem Address [id number] [address] [place] [address] Care Team Providers Care Pile Driver Operator Helper Name Role Phone Otis Jiménez DO Primary Care Provider [phone] Encounter Details Date Type Department Care Team (Late Contact Info) Description 03/03/2022 Telephone [facility] - W[facility] Care Clinic [address] [place] [phone] Pearl Hagan, RN Social History Tobacco Use [...] have Coronavirus / COVID-19? No / Unsure 03/06/2022 11:17 AM EST documented as of this encounter Plan of Treatment Upcoming Encounters Date Type Department Care Team (Late Contact Info) Description 09/29/2024 10:30 AM EDT Office Visit [facility] Physicians Internal Medicine - Family Medicine [address] [place] [address] Otis Jiménez DO [address], [place] [address] documented as of this encounter Visit Diagnoses Not on filedocumented in this encounter Care Teams Pile Driver Operator Helper Relationship Specialty Start Date End Date Otis Jiménez DO [address], [place] [place] [address] PCP - General Family Medicine 10/03/21 documented as of this encounter
--- OUTSIDE RECORDS SUMMARY | 2024-08-21 11:00 | XMS_ITS | Encounter Summary ---
Author Organization [facility] [employer] [facility] tem Address [id number] [address] [place] [address] Care Team Providers Care Silk Spreader Name Role Phone Otis Jiménez DO Primary Care Provider [phone] Encounter Details Date Type Department Care Team (Late Contact Info) Description 01/06/2022 Telephone [facility] - W[facility] Care Clinic [address] [place] [address] Pearl Hagan, RN Social History Tobacco Use [...] have Coronavirus / COVID-19? No / Unsure 01/09/2022 8:48 AM EDT documented as of this encounter Plan of Treatment Upcoming Encounters Date Type Department Care Team (Late Contact Info) Description 09/29/2024 10:30 AM EDT Office Visit [facility] Physicians Internal Medicine - Family Medicine [address] [place] [address] Otis Jiménez DO [address], [place] [address] documented as of this encounter Visit Diagnoses Not on filedocumented in this encounter Care Teams Silk Spreader Relationship Specialty Start Date End Date Otis Jiménez DO [address], [facility] [place] [place] [address] PCP - General Family Medicine 10/03/21 documented as of this encounter
--- OUTSIDE RECORDS SUMMARY | 2024-08-21 11:00 | XMS_ITS | Encounter Summary ---
Author Organization [facility] [employer] [facility] tem Address [id number] [address] [place] [address] Care Team Providers Care Behavioral Assistant Name Role Phone Otis Jiménez DO Primary Care Provider [phone] Encounter Details Date Type Department Care Team (Late Contact Info) Description 12/16/2021 Telephone [facility] - W[facility] Care Clinic [address] [place] [phone] Pearl Hagan, RN Social History Tobacco Use [...] Description 09/29/2024 10:30 AM EDT Office Visit [facility] Physicians Internal Medicine - Family Medicine [address] [place] [address] Otis Jiménez DO [address], [place] [address] documented as of this encounter Visit Diagnoses Not on filedocumented in this encounter Care Teams Behavioral Assistant Relationship Specialty Start Date End Date Otis Jiménez DO [address], [facility] [place] [address] PCP - General Family Medicine 10/03/21 documented as of this encounter
--- OUTSIDE RECORDS SUMMARY | 2024-08-21 11:00 | XMS_ITS | Encounter Summary ---
Author Organization [facility] Address [facility] [id number] [address] [place] [address] Care Team Providers Care Driller Multiple Spindle Name Role Phone Otis Jiménez DO Primary Care Provider + [phone] Encounter Details Date Type Department Care Team (Late Contact Info) Description 07/07/2022 Orders Only [facility] Internal Medicine - Family Medicine [address] [place] [address] External, Scanning Provider Social History Tobacco Use Types Packs/Day Years Used Date Smoking Tobacco: Former Cigarettes Smokeless Tobacco: Never Comments:only smoked for 3 m [facility] 60 years ago, 2 cigarettes a day Alcohol Use Standard Drinks/Week Comments Not Currently 0 (1 standard drink = 0.6 oz pur e alcohol) rare- on new years clive PHQ-2 Answer Date Recorded Total Score 0 07/07/2022 Childcare Answer Date Recorded Childcare Unknown 08/31/2018 [...] have Coronavirus / COVID-19? No / Unsure 06/29/2022 10:29 AM EDT documented as of this encounter Plan of Treatment Upcoming Encounters Date Type Department Care Team (Late Contact Info) Description 09/29/2024 10:30 AM EDT [facility] Medicine [address] [place] [address] Otis Jiménez DO [address], [place] [address] documented as of this encounter Procedures Procedure Name Priority Date/Time Associated Diagnosis Comments MULTIPLE LABS Routine 05/26/2022 MULTIPLE RADS Routine 05/24/2022 ECG 12-LEAD Routine 05/22/2019 documented in this encounter Results * Multiple labs (05/26/2022) us Scanning Provider External IN IMAGING Final Result Performing Organization Address [facility] de Phone Number MANUALLY TRANSCRIBED RESULTS * Multiple rads (05/24/2022) Anatomical Region Laterality Modality Other us Scanning Provider External IN IMAGING Final Result * ECG 12 lead (05/22/2019) us Scanning Provider External ECG ORDERABLES Final Result Performing Organization Address [facility] de Phone Number MANUALLY TRANSCRIBED RESULTS documented in this encounter Visit Diagnoses Not on filedocumented in this encounter Additional Health Concerns Assessment Noted Time PHQ-9 Depression Total Score: 0 07/08/19 23 1:31 PM EDT documented as of this encounter Care Teams Driller Multiple Spindle Relationship Specialty Start Date End Date Otis Jiménez DO [address] [place] [address] PCP - General Family Medicine 10/03/21 documented as of this encounter
--- OUTSIDE RECORDS SUMMARY | 2024-08-21 11:00 | XMS_ITS | Clinical Summary ---
Author Organization [facility] Address [address] [place] [address] Care Team Providers Care Sterile Proc Tech Name Role Phone Otis Jiménez MD Primary Care Provider Allergies Active Allergy Reactions Criticality Noted Date Comments Fludrocortisone 04/29/2021 Other Reaction(s): drowsy, Other (See Comments) Other 06/18/2015 Seasonal Allergies Wound Dressing Adhesive Rash Low 06/28/2012 Medications donepezil (Aricept) 5 MG tablet Take 1 tablet by mouth at bedtime 09/07/2023 Active gabapentin (Neurontin) 100 MG capsule Take 100 mg by mouth in the morning and 100 mg at noon and 100 mg in the evening. 04/19/2023 Active metoprolol succinate XL (Toprol XL) 50 MG 24 hr tablet 1 (one) time each day at the same time Active Potassium Chloride (EPIKLOR/25 PO) Take 25 mEq by mouth Active Social History Tobacco Use Types Packs/Day Years Used Date Smoking Tobacco: Never Smokeless Tobacco: Never Tobacco Cessation:Counseling Given: Not Answered Alcohol Use Standard Drinks/Week Comments Never 0 (1 standard drink = 0.6 oz pur e alcohol) Comments Unknown Sex and Gender Information Value Date Recorded Sex Assigned at Not on file Legal Sex Female 6:37 PM EDT Gender Identity Not on file Sexual Orientation Not on file Last Filed Vital Signs Vital Sign Reading Time Taken Comments Blood Pressure 143/73 10/30/2020 12:00 PM EDT Pulse - - Temperature - - Respiratory Rate - - Oxygen Saturation - - Inhaled Oxygen Concentration - - Weight 93.9 kg (207 lb) 10/30/2020 12:00 PM EDT Height 170.2 cm (5' 7 ) 04/29/2021 12:00 PM EST Body Mass Index 32.42 10/30/2020 12:00 PM EDT Plan of Treatment Health Maintenance Due Date Last Done Comments Influenza Vaccine (Season Ended) 2024 05/09/2021, 05/02/2018, 01/06/2018, Additional history exists Pneumococcal Vaccine: 65+ Years Completed 03/19/2017, 04/27/2016, 12/18/2014 Insurance [employer] Care Teams Sterile Proc Tech Relationship Specialty Start Date End Date Otis Jiménez MD PCP - General Family Medicine 10/04/23
--- OUTSIDE RECORDS SUMMARY | 2024-08-21 11:00 | XMS_ITS | Encounter Summary ---
Author Organization [facility] [employer] [facility] tem Address [id number] [address] [place] [address] Care Team Providers Care Automotive Center Manager Name Role Phone Otis Jiménez DO Primary Care Provider [phone] Encounter Details Date Type Department Care Team (Late Contact Info) Description 02/20/2022 Telephone [facility] - W[facility] Care Clinic [address] [place] [phone] Pearl Hagan, RN Social History Tobacco Use [...] have Coronavirus / COVID-19? No / Unsure 02/18/2022 11:14 AM EST documented as of this encounter Plan of Treatment Upcoming Encounters Date Type Department Care Team (Late Contact Info) Description 09/29/2024 10:30 AM EDT Office Visit [facility] Physicians Internal Medicine - Family Medicine [address] [place] [address] Otis Jiménez DO [address], [place] [address] documented as of this encounter Visit Diagnoses Not on filedocumented in this encounter Care Teams Automotive Center Manager Relationship Specialty Start Date End Date Otis Jiménez DO [address], [place] [address] PCP - General Family Medicine 10/03/21 documented as of this encounter
--- OUTSIDE RECORDS SUMMARY | 2024-08-21 11:01 | XMS_ITS | Encounter Summary ---
Author Organization [facility] [employer] [facility] tem Address [facility] [place]-[id number] [address] [place] [address] Care Team Providers Care Ict Development Manager Name Role Phone Otis Jiménez DO Primary Care Provider +[phone] Encounter Details Date Type Department Care Team (Late Contact Info) Description 01/30/2022 Telephone [facility] - [facility] [address] [place] [phone] Pearl Hagan, RN Social History Tobacco Use [...] have Coronavirus / COVID-19? No / Unsure 01/30/2022 9:55 AM EST documented as of this encounter Plan of Treatment Upcoming Encounters Date Type Department Care Team (Late Contact Info) Description 09/29/2024 10:30 AM EDT Office Visit [facility] Internal Medicine - Family Medicine [address] [place] [address] Otis Jiménez DO [address], [place] [address] documented as of this encounter Visit Diagnoses Not on filedocumented in this encounter Care Teams Ict Development Manager Relationship Specialty Start Date End Date Otis Jiménez DO [address], [place] [address] PCP - General Family Medicine 10/03/21 documented as of this encounter
--- OUTSIDE RECORDS SUMMARY | 2024-08-21 11:01 | XMS_ITS | Encounter Summary ---
Author Organization [facility] [employer] [facility] tem Address [facility]-[id number] [address] [place] [address] Care Team Providers Care Waiter Waitress Name Role Phone Otis Jiménez DO Primary Care Provider +[phone] Encounter Details Date Type Department Care Team (Late Contact Info) Description 02/02/2022 Telephone [facility] - [facility] Care [facility] [address] [place] [phone] Pearl Hagan, RN Social History Tobacco Use [...] have Coronavirus / COVID-19? No / Unsure 02/04/2022 12:55 PM EST documented as of this encounter Plan of Treatment Upcoming Encounters Date Type Department Care Team (Late Contact Info) Description 09/29/2024 10:30 AM EDT Office Visit [facility] Internal Medicine - Family Medicine [address] [place] [address] Otis Jiménez DO [address], [place] [address] documented as of this encounter Visit Diagnoses Not on filedocumented in this encounter Care Teams Waiter Waitress Relationship Specialty Start Date End Date Otis Jiménez DO [address], [place] [address] PCP - General Family Medicine 10/03/21 documented as of this encounter
--- OUTSIDE RECORDS SUMMARY | 2024-08-21 11:01 | XMS_ITS | Encounter Summary ---
Author Organization [employer] tem Address [facility]-[id number] [address] [place] [address] Care Team Providers Care Client Service Manager Name Role Phone Otis Jiménez DO Primary Care Provider [phone] Encounter Details Date Type Department Care Team (Late Contact Info) Description 10/07/2021 Telephone [facility] General [facility] [address] [place] [phone] Amrik Vasquez DO [address] [place] [address] Social History Tobacco Use Types Packs/Day Years Used Date Smoking Tobacco: Former Smokeless Tobacco: Never Alcohol Use Standard Drinks/Week Comments Yes 0 (1 standard drink = 0.6 oz pur e alcohol) moderate use Childcare Answer Date Recorded Childcare Unknown 08/31/2018 Employment Answer Date Recorded Employment Unknown 08/31/2018 Purpose - Life Answer Date Recorded Purpose and direction in life Unknown Comments Unknown Sex and Gender Information Value Date Recorded Sex Assigned at Not on file Legal Sex Female 11:26 AM EDT Gender Identity Not on file Sexual Orientation Not on file COVID-19 Exposure Response Date Recorded In the last month, have you been in contact with someone who was confirmed or suspected to have Coronavirus / COVID-19? No / Unsure 10/03/2021 9:00 AM EDT documented as of this encounter Plan of Treatment Upcoming Encounters Date Type Department Care Team (Late Contact Info) Description 09/29/2024 10:30 AM EDT Office Visit [facility] Internal Medicine - Family Medicine [address] [place] [phone] Otis Jiménez DO [address], [place] [address] documented as of this encounter Visit Diagnoses Not on filedocumented in this encounter Care Teams Client Service Manager Relationship Specialty Start Date End Date Otis Jiménez DO [address], [facility] [place] [address] PCP - General Family Medicine 10/03/21 documented as of this encounter
--- OUTSIDE RECORDS SUMMARY | 2024-08-21 11:01 | XMS_ITS | Encounter Summary ---
Author Organization [email or web address] Address [id number] [address] [place] [address] Care Team Providers Care Weather Teacher Name Role Phone Otis Jiménez DO Primary Care Provider + [phone] Encounter Details Date Type Department Care Team (Late st Contact Info) Description 05/27/2023 Telephone [facility] Internal Medicine - Family Medicine [address] [place] [phone] Coral Hood CMA Social History Tobacco Use Types Packs/Day Years Used Date Smoking Tobacco: Former Cigarettes Smokeless Tobacco: Never Comments:only smoked for 3 m [facility] 60 years ago, 2 cigarettes a day Alcohol Use Standard Drinks/Week Comments Not Currently 0 (1 standard drink = 0.6 oz pur e alcohol) rare- on new years clive PHQ-2 Answer Date Recorded Total Score 0 05/24/2023 Childcare Answer Date Recorded Childcare Unknown 08/31/2018 Employment Answer Date Recorded Employment Unknown 08/31/2018 Hunger Screening Answer Date Recorded Within the past 12 months we worried whether our food would run out before we got money to buy more. Often True 05/24/2023 Within the past 12 months th e food we bought just didn't last and we didn't have money to get more. Often True 05/24/2023 Purpose - Life Answer Date Recorded Purpose and direction in life Unknown Comments No Sex and Gender Information Value Date Recorded Sex Assigned at Not on file Legal Sex Female 11:26 AM EDT Gender Identity Not on file Sexual Orientation Not on file documented as of this encounter Miscellaneous Notes * Telephone Encounter - Coral Hood CMA - 05/27/2023 10:41 AM EST I spoke with her daughter Coral and gave her the test results. She was concerned why you didn't fillout the form she brought in. She said that she can not remember things. She said that her mom wroteout checks for $10,000.oo to different companies and gave out her credit card number. She also saidrenye had $140.00 for her hear and groceries. She forgot about her hair and spent $120.00 at the grocery store and she keeps saying she has no groceries. * Telephone Encounter - Otis Jiménez DO - 05/27/2023 10:41 AM EST She would need further evaluation by a specialist for a neurocognitive evaluation and she did not want to do that. Is she saying she was scammed out of money? Patient said her daughter already is on the checking account and helps pay her bills. * Telephone Encounter - Coral Hood CMA - 05/27/2023 10:41 AM EST Her daughter Coral would like you to do a referral for her to have the extra test done. * Telephone Encounter - Otis Jiménez DO - 05/27/2023 10:41 AM EST She will have to get the patient to agree because the patient refused. She also refused the genetictesting. She should probably come in with her so we can all discuss this together. Patient left outthe fact that she might have been scammed. * Telephone Encounter - Coral Hood CMA - 05/27/2023 10:41 AM EST Left a message for the patient's daughter to call me back * Telephone Encounter - Coral Hood CMA - 05/27/2023 10:41 AM EST Left this message on her daughter Coral's confidential voice mail documented in this encounter Plan of Treatment Upcoming Encounters Date Type Department Care Team (Late st Contact Info) Description 09/29/2024 10:30 AM EDT Office Visit [facility] Internal Medicine - Family Medicine [address] [place] [address] Otis Jiménez DO [address], [place] [address] documented as of this encounter Visit Diagnoses Not on filedocumented in this encounter Additional Health Concerns Assessment Noted Time PHQ-9 Depression Total Score: 0 05/24/19 24 2:22 PM EST documented as of this encounter Care Teams Weather Teacher Relationship Specialty Start Date End Date Otis Jiménez DO [address] [facility] [address] PCP - General Family Medicine 10/03/21 documented as of this encounter
--- OUTSIDE RECORDS SUMMARY | 2024-08-21 11:01 | XMS_ITS | Encounter Summary ---
Author Organization [facility] tem Address [facility] [place]-[id number] [address] [place] [address] Care Team Providers Care Plodder Operator Name Role Phone Otis Jiménez DO Primary Care Provider [phone] Encounter Details Date Type Department Care Team (Late Contact Info) Description 01/30/2022 Telephone [facility] - W[facility] Care Clinic [address] [place] [phone] Pearl Hagan, RN Social History Tobacco Use [...] Description 09/29/2024 10:30 AM EDT Office Visit [facility] Internal Medicine - Family Medicine [address] [place] [address] Otis Jiménez DO [address], [place] [address] documented as of this encounter Visit Diagnoses Not on filedocumented in this encounter Care Teams Plodder Operator Relationship Specialty Start Date End Date Otis Jiménez DO [address], [place] [address] PCP - General Family Medicine 10/03/21 documented as of this encounter
--- OUTSIDE RECORDS SUMMARY | 2024-08-21 11:01 | XMS_ITS | Encounter Summary ---
Author Organization [employer] Address [facility] [place]-[id number] [address] [place] [address] Care Team Providers Care Business Process Engineer Name Role Phone Otis Jiménez DO Primary Care Provider + [phone] Encounter Details Date Type Department Care Team (Late st Contact Info) Description 04/12/2023 Orders Only [facility] Internal Medicine - Family Medicine [address] [place] [phone] Veronica Nowak, OPEN HEARTH STOCKYARD SUPERVISOR-LOSS CONTROL CONSULTANT [address] [place], [place] [id number] Bilateral hip pain Social History Tobacco Use Types Packs/Day Years Used Date Smoking Tobacco: Former Cigarettes Smokeless Tobacco: Never Comments:only smoked for 3 m [facility] 60 years ago, 2 cigarettes a [...] Medicine - Family Medicine [address] [place] [address] Otis Jiménez DO [address], [place] [address] documented as of this encounter Procedures Procedure Name Priority Date/Time Associated Diagnosis Comments XR HIPS BILAT W OR WO PELVIS 2 VWS Routine 04/07/2023 Bilateral hip pain documented in this encounter Results * X-ray hips bilateral with or without pelvis 2 views (04/07/2023) Anatomical Region Laterality Modality Lower Extremities, MSK, Hip Bilateral Comp uted Radiography Veronica Nowak OPEN HEARTH STOCKYARD SUPERVISOR-LOSS CONTROL CONSULTANT IMG DIAGNOSTIC IMAGING STACI GATES Final Result documented in this encounter Visit Diagnoses Diagnosis Bilateral hip pain Pain in joint, pelvic region and thigh documented in this encounter Additional Health Concerns Assessment Noted Time PHQ-9 Depression Total Score: 0 12/24/19 23 1:14 PM EDT documented as of this encounter Care Teams Business Process Engineer Relationship Specialty Start Date End Date Otis Jiménez DO [address], [facility] [place] [address] PCP - General Family Medicine 10/03/21 documented as of this encounter
--- OUTSIDE RECORDS SUMMARY | 2024-08-21 11:01 | XMS_ITS | Encounter Summary ---
Author Organization [employer] Address [facility] [id number] [address] [place] [address] Care Team Providers Care Gate Watchman Name Role Phone Otis Jiménez DO Primary Care Provider + [phone] Encounter Details Date Type Department Care Team (Late Contact Info) Description 04/22/2023 Orders Only [facility] Internal Medicine - Family Medicine [address] [place] [address] External, Scanning Provider Social History Tobacco Use Types Packs/Day Years Used Date Smoking Tobacco: Former Cigarettes Smokeless Tobacco: Never Comments:only smoked for 3 m [facility] 60 years ago, 2 cigarettes [...] Medicine - Family Medicine [address] [place] [address] Otis Jiménez DO [address], [place] [address] documented as of this encounter Procedures Procedure Name Priority Date/Time Associated Diagnosis Comments XR SACRUM COCCYX MIN 2 VWS Routine 04/22/2023 2:40 PM EST XR LUMBAR SPINE AP, LATERAL, FLEXION AND EXTENSION ONLY Routine 04/22/2023 2:38 PM EST XR HIP RT 2-3 VIEWS W OR WO PELVIS Routine 04/22/2023 2:37 PM EST documented in this encounter Results * X-ray sacrum coccyx minimum 2 views (04/22/2023 2:40 PM EST) Anatomical Region Laterality Modality MSK, Lower Extremities N/A Computed Radiography us Scanning Provider External IMG DIAGNOSTIC IMAGIN G ORDERABLES Final Result * X-ray spine lumbar ap, lateral, flexion and extension only (04/22/2023 2:38 PM EST) Anatomical Region Laterality Modality MSK, Neuro, Spine, L-spine N/A Compu isabela Radiography us Scanning Provider External IMG DIAGNOSTIC IMAGIN G ORDERABLES Final Result * X-ray hip right 2-3 views with or without pelvis (04/22/2023 2:37 PM EST) Anatomical Region Laterality Modality Lower Extremities, MSK, Hip Right Comp uted Radiography us Scanning Provider External IMG DIAGNOSTIC IMAGIN G ORDERABLES Final Result documented in this encounter Visit Diagnoses Not on filedocumented in this encounter Additional Health Concerns Assessment Noted Time PHQ-9 Depression Total Score: 0 12/24/19 23 1:14 PM EDT documented as of this encounter Care Teams Gate Watchman Relationship Specialty Start Date End Date Otis Jiménez DO [address], [place] [address] PCP - General Family Medicine 10/03/21 documented as of this encounter
--- OUTSIDE RECORDS SUMMARY | 2024-08-21 11:01 | XMS_ITS | Encounter Summary ---
Author Organization [employer] Address [facility] [place]-[id number] [address] [place] [address] Care Team Providers Care Blood Tester Name Role Phone Otis Jiménez DO Primary Care Provider + [phone] Encounter Details Date Type Department Care Team (Late st Contact Info) Description 12/21/2022 Telephone [facility] Internal Medicine - Family Medicine [address] [place] [phone] Chelsy Mcclendon CMA Social History Tobacco Use Types Packs/Day Years Used Date Smoking Tobacco: Former Cigarettes Smokeless Tobacco: Never Comments:only smoked for 3 m [facility] 60 years ago, 2 cigarettes a [...] encounter Miscellaneous Notes * Telephone Encounter - Chelsy Mcclendon CMA - 12/21/2022 1:22 PM EDT Pt called and left message, said she is due for labs and usually gets them done, prior to appt. Shestated she was confused, she then she also has a appt with Dr Cheng, and she did not know what labs she needed. Please advise? documented in this encounter Plan of Treatment Upcoming Encounters Date Type Department Care Team (Late st Contact Info) Description 09/29/2024 10:30 AM EDT Office Visit [facility] Internal Medicine - Family Medicine [address] [place] [address] Otis Jiménez DO [address] [facility] [place] [address] documented as of this encounter Visit Diagnoses Not on filedocumented in this encounter Additional Health Concerns Assessment Noted Time PHQ-9 Depression Total Score: 0 08/27/19 23 10:51 AM EDT documented as of this encounter Care Teams Blood Tester Relationship Specialty Start Date End Date Otis Jiménez DO [address] [facility] [place] [address] PCP - General Family Medicine 10/03/21 documented as of this encounter
--- OUTSIDE RECORDS SUMMARY | 2024-08-21 11:01 | XMS_ITS | Encounter Summary ---
Author Organization [employer] Address [facility] [id number] [address] [place] [address] Care Team Providers Care Gasoline Engine Inspector Name Role Phone Otis Jiménez DO Primary Care Provider + [phone] Encounter Details Date Type Department Care Team (Late st Contact Info) Description 04/16/2023 Telephone [facility] Internal Medicine - Family Medicine [address] [place] [phone] Suyapa Dorsey CMA Social History Tobacco Use Types Packs/Day Years Used Date Smoking Tobacco: Former Cigarettes Smokeless Tobacco: Never Comments:only smoked for 3 m [facility] 60 years ago, 2 cigarettes a [...] Telephone Encounter - Suyapa Dorsey CMA - 04/16/2023 11:40 AM EST Pt Daughter called and stated that her lytripa would not be covered because she does not have a seizure diagnosis nor fibromyalgia. Any suggestions on how to get this covered? * Telephone Encounter - GildaAIDAN [place] - 04/16/2023 11:40 AM EST No my suggestion was to try the neurontin even though this is one you really didn't want to try I think it would be helpful - Veronica * Telephone Encounter - Suyapa Dorsey CMA - 04/16/2023 11:40 AM EST Left message to call back. * Telephone Encounter - Suyapa Dorsey CMA - 04/16/2023 11:40 AM EST Patient daughter stated that is fine and to send into [facility] * Telephone Encounter - AIDAN El - 04/16/2023 11:40 AM EST Sent in documented in this encounter Plan of Treatment Upcoming Encounters Date Type Department Care Team (Late st Contact Info) Description 09/29/2024 10:30 AM EDT Office Visit [facility] Internal Medicine - Family Medicine [address] [place] [phone] Otis Jiménez, [address], [place] [address] documented as of this encounter Visit Diagnoses Not on filedocumented in this encounter Additional Health Concerns Assessment Noted Time PHQ-9 Depression Total Score: 0 10/04/20 23 1:14 PM EDT documented as of this encounter Care Teams Gasoline Engine Inspector Relationship Specialty Start Date End Date Otis Jiménez DO [address], [facility] [place] [address] PCP - General Family Medicine 10/03/21 documented as of this encounter
--- OUTSIDE RECORDS SUMMARY | 2024-08-21 11:18 | XMS_ITS | CCD ---
Author Organization [facility] Care Team Providers Care Private Inquiry Agent Name Role Phone JOSE LUIS LIZAMA Unavailable Unavailable SELF, SELF Unavailable Unavailable EDUARDO ROSE Unavailable Unavailable LIZAMAJOSE LUIS SAUL Unavailable Unavailable LIZAMAJOSE LUIS SAUL Y Unavailable Unavailable EDUARDO ROSE Unavailable Unavailable [...] Care Provider DO Rita Corado Emergency Provider [phone] Yolanda Calvo Primary Care Unavailable Rita Corado Attending Unavailable Rita Corado Admitting Unavailable Otis Chaves DO Primary Care Provider OTIS CHAVES Attending Unavailable OTIS CHAVES Referring Unavailable OTIS CHAVES Primary Care Unavailable OTIS CHAVES Attending Unavailable OTIS CHAVES Referring Unavailable FURLONG, OTIS G Primary Care Unavailable CESIA CHAHAL Attending Unavailable FURLONG, OTIS G Referring [...] Unavailable FURLONG, OTIS G Primary Care Unavailable Furlong DO, Otis Jett Primary Care Provider [phone] Chelsie SIEGEL, Andrius Vytautamggie Attending Unavailable Giedraitis , Andrius Vytautas Attending Unavailable Giedraitis MD, Andrius Vytautas Attending Unavailable Giedraitis MD, Andrius Vytautas Attending Unavailable Giedraitis MD, Andrius Vytautas Attending Unavailable Allergies Allergy Classification Reported Allergen(s) Allergy Type Date of Onset Reaction(s) Facility (1 source) 42998,00; Translations: [38719,00] Propensity to adverse reactions (disorder) 9 [facility] Repository (7 sources) Adhesive agent; Translations: [ADHESIVE] Propensity to adverse reactions to drug (disorder) 3 Rash [facility] Repository (7 sources) Fludrocortisone ; Translations: [FLUDROCORTISON E] Drug Allergy 2 Other (See Comments) [facility] Repository (7 sources) OTHER; Translations: [OTHER] Propensity to adverse reactions (disorder) 6 [facility] Repository Medications Current Medications Medication Drug Class(es) Dates Sig (Normalized) Sig (Original) celecoxib 200 mg oral capsule (7 sources) Nonsteroidal Anti-inflammatory Drug Start: 09-19-2017 take 200 mg by mouth once daily Celecoxib Active 200 MG PO Daily September 19, 2017 12:00am cephalexin 500 mg oral capsule (5 sources) Cephalosporin Antibacterial Start: 12-10-2021 take 500 mg by mouth four times daily Cephalexin Active 500 MG PO Four times daily February 28, 2021 1:00am Clotrimazole (2 sources) Azole Antifungal Start: 04-21-2021 Clotrimazole 1 % 1 application Externally Twice a day for 28 day(s) Mar, Active Start: 04-21-2021 Clotrimazole 1 % 1 application Externally Twice a day for 28 day(s) Mar, Active donepezil hydrochloride 10 mg oral tablet (5 sources) Start: 02-21-2024 take 1 tablet by mouth once daily donepeziL (ARICEPT) 10 mg tablet TAKE 1 TABLET BY MOUTH NIGHTLY 30 tablet 5 02/21/2024 Active escitalopram 5 mg oral tablet (7 sources) Serotonin Reuptake Inhibitor Start: 06-11-2024 take [...] mirabegron 50 mg extended release oral tablet (6 sources) beta3-Adrenergic Agonist Start: 03-24-2024 take 1 [...] day Active naproxen 250 mg oral tablet (6 sources) Nonsteroidal Anti-inflammatory Drug Start: 01-13-2024 End: [...] pain] Onset: 11-06-2023 11-07-2023 Episodic Anxiety disorders (8 sources) Anxiety; Translations: [Anxiety disorder, unspecified] Onset: 12-09-2023 03-24-2024 Chronic Asthma (5 sources) Asthma; Translations: [Unspecified asthma, uncomplicated] Onset: 11-28-2021 11-28-2021 Chronic Cardiac dysrhythmias (6 sources) Supraventricular tachycardia; Translations: [Supraventricular tachycardia ([facility])] Onset: 03-24-2024 03-24-2024 Chronic Coronary atherosclerosis and other heart disease (6 sources) Atherosclerotic heart disease of [place] coronary artery without angina pectoris; Translations: [Coronary atherosclerosis] Onset: 01-13-2012 11-28-2021 Chronic Delirium, dementia, and amnestic and other cognitive disorders (7 sources) Senile dementia; 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] Onset: 03-24-2024 03-24-2024 Chronic Genitourinary symptoms and ill-defined conditions (12 sources) Mixed urinary incontinence; Translations: [Mixed incontinence] Onset: 11-28-2021 03-24-2024 Chronic Osteoarthritis (13 sources) Osteoarthritis of right knee joint; Translations: [Unilateral primary osteoarthritis, right knee] Onset: 04-02-2023 Chronic Other aftercare (1 source) Other terminal carman (current) drug therapy; Translations: [OTH JAIL CURRENT DRUG THERAPY] Onset: 05-28-2022 Episodic Other [...] [Hyperglycemia, unspecified] Onset: 05-24-2023 Episodic Essential hypertension (11 sources) Essential hypertension; Translations: [Essential (primary) hypertension] Onset: 11-28-2021 Resolved: 05-24-2023 05-24-2023 Chronic Genitourinary symptoms and ill-defined conditions (6 sources) Urgent desire to urinate; Translations: [Urgency of urination] Onset: 11-28-2021 11-28-2021 Episodic Mood disorders (16 sources) Mood disorder; Translations: [Unspecified mood [affective] disorder] Onset: 12-21-2007 Resolved: 06-26-2022 06-26-2022 Chronic Mood disorders (5 sources) Mood disorders Onset: 03-24-2024 03-24-2024 Open wounds of extremities (5 sources) Open wound of left lower leg; Translations: [Unspecified open wound, left lower leg, initial encounter] Onset: 11-27-2021 Resolved: 10-26-2023 10-26-2023 Episodic Other aftercare (1 source) 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; Translations: [JAIL (CURRENT) USE OF ASPIRIN] Onset: 11-06-2016 Episodic [...] 10-26-2023 Episodic Other non-epithelial cancer of skin (15 [...] metabolic disorders (5 sources) Severe obesity; Translations: [Class 3 severe [...] amnesia] Onset: 05-24-2023 Episodic Residual codes; unclassified (5 sources) Postmenopausal state; Translations: [Asymptomatic menopausal state] [...] ALT [Catalytic activity/Vol] 5 U/L Low 7-52 [facility] Comment on above: Performed By: #### H EPATIC, LIPASE, BMP, DIFF CBC #### [facility] [address] Albumin [Mass/volume] in Ser um or Plasma by Bromocresol green (BCG) dye binding methoOrdered By: Rita Corado on 11-07-2023 Albumin BCG dye [Mass/Vol] 3.5 g/dL 3.5-5.7 [facility] Alkaline phosphatase [Enzyma tic activity/volume] in Serum or PlasmaOrdered By: Rita Corado on 11-07-2023 ALP [Catalytic activity/Vol] 77 U/L Normal 34-104 [facility] Comment on above: Performed By: #### H EPATIC, LIPASE, BMP, DIFF CBC #### [facility] [address] Aspartate aminotransferase [ Enzymatic activity/volume] in Serum or PlasmaOrdered By: Rita Corado on 11-07-2023 AST [Catalytic activity/Vol] 10 U/L Low 13-39 [facility] Comment on above: Performed By: #### H EPATIC, LIPASE, BMP, DIFF CBC #### [facility] [address] Basic Metabolic Panelon 10-20 Creatinine Clr Calc Pharmacy 40.73 Normal [facility] Comment on above: Performed By: #### H EPATIC, LIPASE, BMP, DIFF CBC #### [facility] [address] GFR/1.73 sq M.predicted MDRD (S/P/Bld) [Vol rate/Area] 59.463 mL/min/{1.73_m2} Normal [facility] Comment on above: Performed By: #### H EPATIC, LIPASE, BMP, DIFF CBC #### [facility] [address] Basophils Auto (Bld) [#/Vol] Ordered By: Rita Corado on 11-07-2023 Basophils (Bld) [#/Vol] N/A [facility] Basophils/100 WBC Auto (Bld) Ordered By: Rita Corado on 11-07-2023 Basophils/100 WBC (Bld) N/A [facility] Bilirubin Test strip Ql (U)O rdered By: Rita Corado on 11-07-2023 Bilirubin Ql (U) Negative Negative [facility] Bilirubin.direct [Mass/volum e] in Serum or PlasmaOrdered By: Rita Corado on 11-07-2023 Bilirubin.direct [Mass/Vol] 0.10 mg/dL 0.03-0.18 [facility] Bilirubin.total [Mass/volume ] in Serum or PlasmaOrdered By: Rita Corado on 11-07-2023 Bilirubin [Mass/Vol] 0.5 mg/dL Normal 0.3-1.0 [facility] Comment on above: Performed By: #### H EPATIC, LIPASE, BMP, DIFF CBC #### [facility] [address] [place] [address] [facility] CT abdomen pelvis w conon CT abdomen pelvis w con [facility] Main [place] [address] [place] [id number] Scan Report Signed Patient: Angelika Muir MR#: [id number] : 1940 Acct:[id number] Age/Sex: 83 / F ADM Date: 11/06/23 Loc: ER Room: Type: [facility] ER Attending Dr: Copies to: iRta Corado DO Ordering Provider: Rita Corado DO [...] Martínez Smith M.D.11/07/2023 2:53 PM Dictation Location: [place] [address] Transcribed By: [facility] 11/07/23 1453 Dictated By: Martínez Smith II, MD 11/07/23 1444 Signed By: 11/07/23 1453 Normal [facility] Calcium [Mass/volume] in Ser um or PlasmaOrdered By: Rita Corado on 11-07-2023 Calcium [Mass/Vol] 9.0 mg/dL Normal 8.6-10.3 [facility] Comment on above: Performed By: #### H EPATIC, LIPASE, BMP, DIFF CBC #### [facility] [address] [place] [id number] [place] Carbon dioxide, total [Moles /volume] in Serum or PlasmaOrdered By: Rita Corado on 11-07-2023 CO2 [Moles/Vol] 29.8 mmol/L Normal 21.0-31.0 [facility] Comment on above: Performed By: #### H EPATIC, LIPASE, BMP, DIFF CBC #### [facility] [address] [place] [id number] [place] Chloride [Moles/volume] in S ricky or PlasmaOrdered By: Rita Corado on 11-07-2023 Chloride [Moles/Vol] 101 mmol/L Normal 98-107 [facility] Comment on above: Performed By: #### H EPATIC, LIPASE, BMP, DIFF CBC #### [facility] [address] [place] [id number] [place] Color of Urine by AutoOrdere d By: Rita Corado on 11-07-2023 Color (U) Light-yellow Normal Yellow [facility] Comment on above: Order Comment: Name Collection Type:: Clean-Voided Midstream Performed By: #### U A #### [facility] [address] [place] [id number] [place] Creatinine [Mass/volume] in Serum or PlasmaOrdered By: Rita Corado on 11-07-2023 Creatinine [Mass/Vol] 0.94 mg/dL Normal 0.60-1.20 [facility] Comment on above: Performed By: #### H EPATIC, LIPASE, BMP, DIFF CBC #### [address] Diff and CBCon 11-07-2023 Mean Corpuscular HGB Conc 33.4 g/dL Normal 32.0-35.0 [facility] Comment on above: Performed By: #### H EPATIC, LIPASE, BMP, DIFF CBC #### [address] Monocytes/100 WBC (Bld) 21.51 % High 0.00-20.00 [facility] Comment on above: Result Comment: For adults in ED, MDW > 20.0 may be associated with a higher risk of sepsis during the first 12 hrs of hospital admission Performed By: #### H EPATIC, LIPASE, BMP, DIFF CBC #### [address] Platelet Estimate Normal Normal Normal [facility] Comment on above: Performed By: #### H EPATIC, LIPASE, BMP, DIFF CBC #### [address] Platelet Morphology Normal Normal Normal [facility] Comment on above: Result Comment: PERF ORMED BY: [place] [address] PATHOLOGIST FORESTRY CONTRACTOR JORGE LUIS RUELAS M.D. Performed By: #### H EPATIC, LIPASE, BMP, DIFF CBC #### [place] [address] [place] Eosinophils Auto (Bld) [#/Vo l]Ordered By: Rita Corado on 11-07-2023 Eosinophils (Bld) [#/Vol] N/A [facility] Eosinophils/100 WBC Auto (Bl d)Ordered By: Rita Corado on 11-07-2023 Eosinophils/100 WBC (Bld) N/A [facility] Erythrocyte distribution wid th [Ratio] by Automated countOrdered By: Rita Corado on 11-07-2023 Erythrocyte distribution width (RBC) [Ratio] 14.2 % Normal 11.9-15.3 [facility] Comment on above: Performed By: #### H EPATIC, LIPASE, BMP, DIFF CBC #### [facility] [address] Erythrocytes [#/volume] in B lood by Automated countOrdered By: Rita Corado on 11-07-2023 RBC (Bld) [#/Vol] 3.89 10*6/uL Normal 3.60-5.00 [facility] Comment on above: Performed By: #### H EPATIC, LIPASE, BMP, DIFF CBC #### [facility] [address] Glucose [Mass/volume] in Ser um or PlasmaOrdered By: Rita Corado on 11-07-2023 Glucose [Mass/Vol] 98 mg/dL Normal 70-100 [facility] Comment on above: ADA recommended refe rence rangeRandom Glucose Reference Range is dependent on time and content of last meal. Glucose of more than 200 mg/dL in a nonstressed, ambulatory subject supports the diagnosis of Diabetes Mellitus. Result Comment: [place] om Glucose Reference Range is dependent on time and content of last meal. Glucose of more than 200 mg/dL in a nonstressed, ambulatory subject supports the diagnosis of Diabetes Mellitus. ADA recommended reference range Performed By: #### H EPATIC, LIPASE, BMP, DIFF CBC #### [facility] [address] [place] [id number] [facility] Glucose [Mass/volume] in Uri ne by Test stripOrdered By: Rita Corado on 11-07-2023 Glucose Test strip (U) [Mass/Vol] Normal mg/dL Normal [facility] Hematocrit [Volume Fraction] of Blood by Automated countOrdered By: Rita Corado on 11-07-2023 Hematocrit (Bld) [Volume fraction] 32.8 % Low 34.0-46.4 [facility] Comment on above: Performed By: #### H EPATIC, LIPASE, BMP, DIFF CBC #### [address] Hemoglobin Test strip Ql (U) Ordered By: Rita Corado on 11-07-2023 Hemoglobin Ql (U) Negative Negative [facility] Hemoglobin [Mass/volume] in BloodOrdered By: Rita Corado on 11-07-2023 Hemoglobin (Bld) [Mass/Vol] 11.0 g/dL Low 11.8-15.4 [facility] Comment on above: Performed By: #### H EPATIC, LIPASE, BMP, DIFF CBC #### [address] Hepatic Panelon 11-07-2023 Albumin [Mass/Vol] 3.5 g/dL Normal 3.5-5.7 [facility] Comment on above: Performed By: #### H EPATIC, LIPASE, BMP, DIFF CBC #### [address] Bilirubin,Indirect 0.4 mg/dL Normal [facility] Comment on above: Performed By: #### H EPATIC, LIPASE, BMP, DIFF CBC #### [address] Bilirubin.indirect [Mass/Vol] 0.10 mg/dL Normal 0.03-0.18 [facility] Comment on above: Performed By: #### H EPATIC, LIPASE, BMP, DIFF CBC #### [address] Ketones [Presence] in Urine by Test stripOrdered By: Rita Corado on 11-07-2023 Ketones Ql (U) Negative Normal Negative [facility] Comment on above: Order Comment: Name Collection Type:: Clean-Voided Midstream Performed By: #### U A #### [address] Leukocyte esterase [Presence ] in Urine by Test stripOrdered By: Rita Corado on 11-07-2023 Leukocyte esterase Test strip Ql (U) Negative Normal Negative [facility] Comment on above: Order Comment: Name Collection Type:: Clean-Voided Midstream Performed By: #### U A #### [facility] [address] [place] [address] Leukocytes [#/volume] correc isabela for nucleated erythrocytes in Blood by Automated counOrdered By: Rita Corado on 11-07-2023 WBC corrected for nucl RBC Auto (Bld) [#/Vol] 6.7 10*3/uL 3.8-11.6 [facility] Leukocytes [#/volume] in Blo od by Automated countOrdered By: Rita Corado on 11-07-2023 WBC (Bld) [#/Vol] 6.7 10*3/uL Normal 3.8-11.6 [facility] Comment on above: Performed By: #### H EPATIC, LIPASE, BMP, DIFF CBC #### [address] Lipase [Enzymatic activity/v olume] in Serum or PlasmaOrdered By: Rita Corado on 11-07-2023 Lipase [Catalytic activity/Vol] 32.0 U/L Normal 11.0-82.0 [facility] Comment on above: Result Comment: PERF ORMED BY: [place] [address] PATHOLOGIST FORESTRY CONTRACTOR JORGE LUIS RUELAS M.D. Performed By: #### H EPATIC, LIPASE, BMP, DIFF CBC #### [address] Lymphocytes Auto (Bld) [#/Vo l]Ordered By: Rita Corado on 11-07-2023 Lymphocytes (Bld) [#/Vol] N/A [facility] Lymphocytes/100 WBC Auto (Bl d)Ordered By: Rita Corado on 11-07-2023 Lymphocytes/100 WBC (Bld) N/A [facility] Lymphocytes/100 leukocytes i n Blood by Manual countOrdered By: Rita Corado on 11-07-2023 Lymphocytes/100 WBC (Bld) 22 % Normal 18-42 [facility] Comment on above: Performed By: #### H EPATIC, LIPASE, BMP, DIFF CBC #### [address] MCH [Entitic mass] by Automa isabela countOrdered By: Rita Corado on 11-07-2023 MCH (RBC) [Entitic mass] 28.2 pg Normal 24.7-34.3 [facility] Comment on above: Performed By: #### H EPATIC, LIPASE, BMP, DIFF CBC #### [facility] [address] [place] [address] MCHC Auto (RBC) [Mass/Vol]Or dered By: Rita Corado on 11-07-2023 MCHC (RBC) [Mass/Vol] 33.4 g/dL 32.0-35.0 [facility] MCV [Entitic volume] by Auto mated countOrdered By: Rita Corado on 11-07-2023 MCV (RBC) [Entitic vol] 84.4 fL Normal 80-100 [facility] Comment on above: Performed By: #### H EPATIC, LIPASE, BMP, DIFF CBC #### [facility] [address] [place] [address] Manual blood segmented neutr ophils/100 leukocytesOrdered By: Rita Corado on 11-07-2023 Segmented neutrophils/100 WBC (Bld) 73 % High 50-70 [facility] Comment on above: Performed By: #### H EPATIC, LIPASE, BMP, DIFF CBC #### [facility] [address] [place] [address] Monocyte distribution width [Entitic volume] in Blood by AutomatedOrdered By: Rita Corado on 11-07-2023 Monocyte distribution width Auto (Bld) [Entitic vol] 21.51 % High 0.00-20.00 [facility] Comment on above: For adults in ED, MD W > 20.0 may be associated with a higher risk of sepsis during the first 12 hrs of hospital admission Monocytes Auto (Bld) [#/Vol] Ordered By: Rita Corado on 11-07-2023 Monocytes (Bld) [#/Vol] N/A [facility] Monocytes/100 WBC Auto (Bld) Ordered By: Rita Corado on 11-07-2023 Monocytes/100 WBC (Bld) N/A [facility] Monocytes/100 leukocytes in Blood by Manual countOrdered By: Rita Corado on 11-07-2023 Monocytes/100 WBC (Bld) 5 % Normal 2-11 [facility] Comment on above: Performed By: #### H EPATIC, LIPASE, BMP, DIFF CBC #### [facility] [address] [place] [address] [place] Neutrophils Auto (Bld) [#/Vo l]Ordered By: Rita Corado on 11-07-2023 Neutrophils (Bld) [#/Vol] N/A [facility] Neutrophils/100 WBC Auto (Bl d)Ordered By: Rita Corado on 11-07-2023 Neutrophils/100 WBC (Bld) N/A [facility] Nitrite Test strip Ql (U)Ord ered By: Rita Corado on 11-07-2023 Nitrite Ql (U) Negative Negative [facility] No Panel InformationOrdered By: Rita Corado on 11-07-2023 Estimated GFR (CKD-EPI) 59.463 mL/Min [facility] Creatinine Clearance (Chem 40.73 [facility] Nucleated erythrocytes [Pres ence] in Blood by Automated countOrdered By: Rita Corado on 11-07-2023 Nucleated RBC Auto Ql (Bld) N/A [facility] Platelet adequacy [Presence] in Blood by Light microscopyOrdered By: Rita Corado on 11-07-2023 Platelets LM Ql (Bld) Normal Normal [facility] Platelet mean volume [Entiti c volume] in Blood by Automated countOrdered By: Rita Corado on 11-07-2023 Platelet mean volume (Bld) [Entitic vol] 7.3 fL Normal 6.3-10.7 [facility] Comment on above: Performed By: #### H EPATIC, LIPASE, BMP, DIFF CBC #### [facility] [address] [place] [address] [place] Platelet morphology finding [Identifier] in BloodOrdered By: Rita Corado on 11-07-2023 Platelet morphology finding Nom (Bld) Normal Normal [facility] Platelets [#/volume] in Bloo d by Automated countOrdered By: Rita Corado on 11-07-2023 Platelets (Bld) [#/Vol] 326 10*3/uL Normal 150-450 [facility] Comment on above: Performed By: #### H EPATIC, LIPASE, BMP, DIFF CBC #### [address] Potassium [Moles/volume] in Serum or PlasmaOrdered By: Rita Corado on 11-07-2023 Potassium [Moles/Vol] 3.9 mmol/L Normal 3.5-5.1 [facility] Comment on above: Performed By: #### H EPATIC, LIPASE, BMP, DIFF CBC #### [address] Protein Test strip (U) [Mass /Vol]Ordered By: Rita Corado on 11-07-2023 Protein (U) [Mass/Vol] Negative Negative [facility] Protein [Mass/volume] in Ser um or PlasmaOrdered By: Riat Corado on 11-07-2023 Protein [Mass/Vol] 6.9 g/dL Normal 6.4-8.9 [facility] Comment on above: Performed By: #### H EPATIC, LIPASE, BMP, DIFF CBC #### [address] RBC morphologyOrdered By: Kings Corado on 11-07-2023 RBC morphology finding Nom (Bld) Normal Normal [facility] Comment on above: Performed By: #### H EPATIC, LIPASE, BMP, DIFF CBC #### [facility] [address] [place] [address] Serum globulin measurement b y calculation (mass/volume)Ordered By: Rita Corado on 11-07-2023 Globulin (S) [Mass/Vol] 3.4 g/dL [facility] Comment on above: Performed By: #### H EPATIC, LIPASE, BMP, DIFF CBC #### [address] Serum or plasma albumin/glob ulin mass ratioOrdered By: Rita Corado on 11-07-2023 Albumin/Globulin [Mass ratio] 1.0 {ratio} Normal [facility] Comment on above: Performed By: #### H EPATIC, LIPASE, BMP, DIFF CBC #### [facility] [address] Serum or plasma anion gap de terminationOrdered By: Rita Corado on 11-07-2023 Anion gap [Moles/Vol] 10.1 mmol/L Normal 6.0-15.0 [facility] Comment on above: Performed By: #### H EPATIC, LIPASE, BMP, DIFF CBC #### [facility] [address] Serum or plasma non-glucuron idated bilirubin measurement (mass/volume)Ordered By: Rita Corado on 11-07-2023 Bilirubin.indirect [Mass/Vol] 0.4 mg/dL [facility] Sodium [Moles/volume] in Ser um or PlasmaOrdered By: Rita Corado on 11-07-2023 Sodium [Moles/Vol] 137 mmol/L Normal 136-145 [facility] Comment on above: Performed By: #### H EPATIC, LIPASE, BMP, DIFF CBC #### [address] Specific gravity Test strip (U) [Rel density]Ordered By: Rita Corado on 11-07-2023 Specific gravity (U) [Rel density] 1.023 1.001-1.03 0 [facility] Urea nitrogen [Mass/volume] in Serum or PlasmaOrdered By: Rita Corado on 11-07-2023 Urea nitrogen [Mass/Vol] 18 mg/dL Normal 7-25 [facility] Comment on above: Performed By: #### H EPATIC, LIPASE, BMP, DIFF CBC #### [address] Urinalysison 11-07-2023 Bilirubin,Urine Negative Normal Negative [facility] Comment on above: Order Comment: Name Collection Type:: Clean-Voided Midstream Performed By: #### U A #### [address] Glucose Ql (U) Normal Normal Normal [facility] Comment on above: Order Comment: Name Collection Type:: Clean-Voided Midstream Performed By: #### U A #### [place] [address] [place] Nitrite,Urine Negative Normal Negative [facility] Comment on above: Order Comment: Name Collection Type:: Clean-Voided Midstream Performed By: #### U A #### [address] Occult Blood,Urine Negative Normal Negative [facility] Comment on above: Order Comment: Name Collection Type:: Clean-Voided Midstream Result Comment: PERF ORMED BY: [place] [address] PATHOLOGIST FORESTRY CONTRACTOR JORGE LUIS RUELAS M.D. Performed By: #### U A #### [place] [address] [place] Protein,Urine Negative Normal Negative [facility] Comment on above: Order Comment: Name Collection Type:: Clean-Voided Midstream Performed By: #### U A #### [address] Specificy [place],Urine 1.023 Normal 1.001-1.03 0 [facility] Comment on above: Order Comment: Name Collection Type:: Clean-Voided Midstream Performed By: #### U A #### [address] Urobilinogen,Urine Normal Normal Normal [facility] Comment on above: Order Comment: Name Collection Type:: Clean-Voided Midstream Performed By: #### U A #### [address] Urine appearanceOrdered By: Rita Corado on 11-07-2023 Appearance (U) Clear Normal Clear [facility] Comment on above: Order Comment: Name Collection Type:: Clean-Voided Midstream Performed By: #### U A #### [address] Urobilinogen Test strip (U) [Mass/Vol]Ordered By: Rita Corado on 11-07-2023 Urobilinogen (U) [Mass/Vol] Normal mg/dL Normal [facility] pH of Urine by Test stripOrd ered By: Rita Corado on 11-07-2023 pH (U) 6.0 [pH] Normal 5.0-9.0 [facility] Comment on above: Order Comment: Name Collection Type:: Clean-Voided Midstream Performed By: #### U A #### [facility] [address] [id number] [facility] ECG 12 lead ECGon 11-06-2023 ECG 12 lead ECG [facility] Main [place] [address] [place] [address] Electrocardiograph Report Signed Patient: Angelika Muir MR#: [id number] : 1940 Acct:[id number] Age/Sex: 83 / F ADM Date: 11/06/23 Loc: ER Room: Type: [facility] ER Attending Dr: Ordering Provider: Rita Corado [...] Rita Corado DO 0354 Normal [facility] COMPREHENSIVE METABOLIC PANE Iam 05-24-2023 Albumin [Mass/Vol] 3.6 g/dL Normal 3.2-5.[address] [facility] Comment on above: Performed By: #### C , 3016-3 #### [facility] ([id number]) [address], [address] [place] [address] ALP [Catalytic activity/Vol] 103 U/L Normal 39-[address] [facility] Comment on above: Performed By: #### C MELO, 3015-3 #### [facility] ([id number]) [address], [address] [place] [address] ALT [Catalytic activity/Vol] 10 U/L Normal 0-[address] [facility] Comment on above: Performed By: #### Estefani ALEJO, 6-3 #### [facility] ([id number]) [address], [address] [place] [address] Anion gap [Moles/Vol] 9 mmol/L Normal 5-15 [facility] Comment on above: Performed By: #### Estefani ALEJO, 3015-3 #### [facility] ([id number]) [address], [address] [place] [address] AST [Catalytic activity/Vol] 16 U/L Normal 0-[address] [facility] Comment on above: Performed By: #### Estefani ALEJO, 3015-3 #### [facility] ([id number]) [address], [address] [place] [address] Bilirubin [Mass/Vol] 0.4 mg/dL Normal 0.3-1.2 [facility] Comment on above: Performed By: #### Estefani ALEJO, 3015-3 #### [facility] ([id number]) [address], [address] [place] [address] Calcium [Mass/Vol] 9.5 mg/dL Normal 8.5-10.[address] [facility] Comment on above: Performed By: #### Estefani ALEJO, 3015-3 #### [facility] ([id number]) [address], [address] [place] [address] Chloride [Moles/Vol] 105 mmol/L Normal 98-109 [facility] Comment on above: Performed By: #### Estefani ALEJO, 3015-3 #### [facility] ([id number]) [address], [address] [place] [address] CO2 [Moles/Vol] 31 mmol/L Normal 22-[address] [facility] Comment on above: Performed By: #### Estefani ALEJO, 3015- #### [facility] ([id number]) [address], [address] [place] [address] Creatinine [Mass/Vol] 0.99 mg/dL Normal 0.40-1.00 [facility] Comment on above: Result Comment: METH OD TRACEABLE TO IDMS STANDARD Performed By: #### Estefani ALEJO, 3015- #### [facility] ([id number]) [address], [address] [place] [address] GFR/1.73 sq M.predicted among non-blacks MDRD (S/P/Bld) [Vol rate/Area] 56 mL/min/{1.73_m2} Low >[address] [facility] Comment on above: Result Comment: Reported eGFR is based on the CKD-EPI 2020 equation that does not use a race coefficient. Performed By: #### Estefani ALEJO, 3015-3 #### [facility] ([id number]) [address], [address] [place] [address] Glucose [Mass/Vol] 103 mg/dL High 65-[address] [facility] Comment on above: Performed By: #### Estefani ALEJO, 3015-3 #### [facility] ([id number]) [address], [address] [place] [address] Potassium [Moles/Vol] 3.9 mmol/L Normal 3.5-5.0 [facility] Comment on above: Performed By: #### Estefani ALEJO, 3015-3 #### [facility] ([id number]) [address], [address] [place] [address] Protein [Mass/Vol] 7.1 g/dL Normal 6.0-8.[address] [facility] Comment on above: Performed By: #### Estefani ALEJO, 3015-3 #### [facility] ([id number]) [address], [address] [place] [address] Sodium [Moles/Vol] 145 mmol/L Normal 134-[address] [facility] Comment on above: Performed By: #### C MELO, 6-3 #### [facility] ([id number]) [address], [facility] [address] [place] [address] Urea nitrogen [Mass/Vol] 18 mg/dL Normal 5-[address] [facility] Comment on above: Performed By: #### C MELO, 3015-3 #### [facility] ([id number]) [address], [facility] [address] [place] [address] HGB A1C (GLYCO-HGB)on 2023 Glucose [Mass/Vol] 126 mg/dL Normal [facility] Comment on above: Performed By: #### C MELO, 3015-3 #### [facility] ([id number]) [address], [address] [place] [address] HbA1c (Bld) [Mass fraction] 6.0 % High 4.4-5.[address] [facility] Comment on above: Result Comment: NOTE ADA Guidelines Result HgbA1c Normal : less than 5.7 % Prediabetes : 5.7 % to 6.4 % Diabetes : > 6.4 % Use with caution in patients with abnormal hemoglobin variants as the half-life of red blood cells and in vivo glycation rates are affected. Performed By: #### C MELO, 3015-3 #### [facility] ([id number]) [address], [facility] [address] [place] [address] TSH Qnon 05-24-2023 TSH 2.13 uIU/mL Normal 0.49-4.[address] [facility] Comment on above: Performed By: #### C MELO, 3015-3 #### [facility] ([id number]) [address] [place] [address], [address] [place] [address] CULTURE URINEon 05-28-2022 CULTURE URINE Isolate 1 [...] F Trimethoprim/Sulfamethoxazol e <=20 S F Normal [facility] Comment on above: Performed By: #### U ACSIND #### [facility] [address] [place] [address] Dr. Megan Caballero ALDOLASEon 05-27-2022 Aldolase 5.8 U/L Normal 3.3-10.3 [facility] Comment on above: Performed By: #### L ACT #### [facility] [address] [place] [address] Dr. Megan Caballero TAO DIRECTon 05-27-2022 TAO Direct Negative Normal Negative [facility] Comment on above: Performed By: #### L ACT #### [facility] [address] [place] [address] Dr. Megan Caballero RHEUMATOID FACTORon 05-28-19 23 RA Latex Turbid. 28.2 IU/mL Critically high <14.0 [facility] Comment on above: Performed By: #### L ACT #### [facility] [address] [place] [address] Dr. Megan Caballero CBC AUTO DIFFon 05-26-2022 BASO # 0.0 103/ul Normal 0.0-0.1 [facility] Comment on above: Performed By: #### L ACT #### [facility] [address] [place] [address] Dr. Megan Caballero Basophils/100 WBC (Bld) 0.1 % Critically low 0.2-2.0 [facility] Comment on above: Performed By: #### L ACT #### [facility] [address] [place] [address] Dr. Megan Caballero EO # 0.0 103/ul Normal 0.0-0.7 [facility] Comment on above: Performed By: #### L ACT #### [facility] [address] [place] [address] Dr. Megan Caballero Eosinophils/100 WBC (Bld) 0.0 % Critically low 0.9-7.0 [facility] Comment on above: Performed By: #### L ACT #### [facility] [address] [place] [address] Dr. Megna Caballero Erythrocyte distribution width (RBC) [Ratio] 13.4 % Normal 11.0-15.0 [facility] Comment on above: Performed By: #### L ACT #### [facility] [address] [place] [address] Dr. Megan Caballero Hematocrit (Bld) [Volume fraction] 33.4 % Critically low 36.0-48.0 [facility] Comment on above: Performed By: #### L ACT #### [facility] [address] [place] [address] Dr. Megan Caballero Hemoglobin (Bld) [Mass/Vol] 11.0 g/dL Critically low 12.0-16.0 [facility] Comment on above: Performed By: #### L ACT #### [facility] [address] [place] [address] Dr. Megan Caballero IG # 0.12 10e3/ul Critically high 0.00-0.03 [facility] Comment on above: Performed By: #### L ACT #### [facility] [address] [place] [address] Dr. Megan Caballero IG % 0.9 % Critically high 0.0-0.5 [facility] Comment on above: Performed By: #### L ACT #### [facility] [address] [place] [address] Dr. Megan Caballero LYMPH # 0.8 103/ul Critically low 1.2-3.8 [facility] Comment on above: Performed By: #### L ACT #### [facility] [address] [place] [address] Dr. Megan Caballero Lymphocytes/100 WBC (Bld) 5.7 % Critically low 20.5-60.0 [facility] Comment on above: Performed By: #### L ACT #### [facility] [address] [place] [address] Dr. Megan Caballero MANUAL DIFF REQ NO Normal [facility] Comment on above: Performed By: #### L ACT #### [facility] [address] [place] [address] Dr. Megan Caballero MCH (RBC) [Entitic mass] 29.2 pg Normal 26.7-34.0 [facility] Comment on above: Performed By: #### L ACT #### [facility] [address] [place] [address] Dr. Megan Caballero MCHC (RBC) [Mass/Vol] 32.9 g/dL Normal 29.9-35.2 [facility] Comment on above: Performed By: #### L ACT #### [facility] [address] [place] [address] Dr. Megan Caballero MCV (RBC) [Entitic vol] 88.6 fL Normal 81.0-99.0 [facility] Comment on above: Performed By: #### L ACT #### [facility] [address] [place] [address] Dr. Megan Caballero MONO # 1.1 103/ul Critically high 0.3-0.8 [facility] Comment on above: Performed By: #### L ACT #### [facility] [address] [place] [address] Dr. Megan Caballero Monocytes/100 WBC (Bld) 7.9 % Normal 1.7-12.0 [facility] Comment on above: Performed By: #### L ACT #### [facility] [address] [place] [address] Dr. Megan Caballero NEUT # 11.9 103/ul Critically high 1.4-6.5 [facility] Comment on above: Performed By: #### L ACT #### [facility] [address] [place] [address] Dr. Megan Caballero Neutrophils/100 WBC (Bld) 85.4 % Critically high 43.0-75.0 [facility] Comment on above: Performed By: #### L ACT #### [facility] [address] [place] [address] Dr. Megan Caballero Platelet mean volume (Bld) [Entitic vol] 10.2 fL Normal 9.5-13.5 [facility] Comment on above: Performed By: #### L ACT #### [facility] [address] [place] [address] Dr. Megan Caballero PLT 176 103/ul Normal 150-450 [facility] Comment on above: Performed By: #### L ACT #### [facility] [address] [place] [address] Dr. Megan Caballero RBC 3.77 106/ul Critically low 4.20-5.40 [facility] Comment on above: Performed By: #### L ACT #### [facility] [address] [place] [address] Dr. Megan Caballero WBC 13.9 103/ul Critically high 4.0-11.0 [facility] Comment on above: Performed By: #### L ACT #### [facility] [address] [place] [address] Dr. Megan Caballero CULTURE BLOODon 05-26-2022 Microscopic examination of blood, culture Culture Observations: NO GROWTH AT 5 DAYS. Normal [facility] Comment on above: Performed By: #### U ACSIND #### [facility] [address] [place] [address] Dr. Megan Caballero Microscopic examination of blood, culture Culture Observations: NO GROWTH AT 5 DAYS. Normal [facility] Comment on above: Performed By: #### U ACSIND #### [facility] [address] [place] [address] Dr. Megan Caballero LACTATE/LACTIC ACIDon 2022 Lactate [Moles/Vol] 1.1 mmol/L Normal 0.4-1.9 [facility] Comment on above: Performed By: #### L ACT #### [facility] [address] [place] [address] Dr. Megan Caballero LIVER PROFILEon 05-26-2022 Albumin [Mass/Vol] 2.7 g/dL Critically low 3.4-5.0 Th e [facility] Comment on above: Performed By: #### L ACT #### [facility] [address] [place] [address] Dr. Megan Caballero Albumin/Globulin [Mass ratio] 0.6 {ratio} Normal [facility] Comment on above: Performed By: #### L ACT #### [facility] [address] [place] [address] Dr. Megan Caballero ALP [Catalytic activity/Vol] 107 U/L Normal 46-116 [facility] Comment on above: Performed By: #### L ACT #### [facility] [address] [place] [address] Dr. Megan Caballero ALT [Catalytic activity/Vol] 12 U/L Critically low 14-59 [facility] Comment on above: Performed By: #### L ACT #### [facility] [address] [place] [address] Dr. Megan Caballero AST [Catalytic activity/Vol] 16 U/L Normal 15-37 [facility] Comment on above: Performed By: #### L ACT #### [facility] [address] [place] [address] Dr. Megan Caballero BILI, CONJUGATED 0.1 mg/dL Normal 0.0-0.2 [facility] Comment on above: Performed By: #### L ACT #### [facility] [address] [place] [address] Dr. Megan Caballero Bilirubin [Mass/Vol] 0.6 mg/dL Normal 0.2-1.0 [facility] Comment on above: Performed By: #### L ACT #### [facility] [address] [place] [address] Dr. Megan Caballero Globulin (S) [Mass/Vol] 4.2 g/dL Normal [facility] Comment on above: Performed By: #### L ACT #### [facility] [address] [address] [address] Megan Caballero Protein [Mass/Vol] 6.9 g/dL Normal 6.4-8.2 [facility] Comment on above: Performed By: #### L ACT #### [facility] [id number] Megan Caballero MAGNESIUMon 05-26-2022 Magnesium [Mass/Vol] 1.9 mg/dL Normal 1.8-2.4 [facility] Comment on above: Performed By: #### M G #### [facility] [id number] Megan Caballero NM BONE SC WH [...] Date: 2022-05-26 15:25 Normal [facility] PROF 14(COMP METB)on 023 Albumin [Mass/Vol] 2.4 g/dL Critically low 3.4-5.0 Th e [facility] Comment on above: Performed By: #### L ACT #### [facility] [address] [place], [place] [id number] Dr. Megan Caballero Albumin/Globulin [Mass ratio] 0.6 {ratio} Normal [facility] Comment on above: Performed By: #### L ACT #### [facility] [id number] Megan Caballero ALP [Catalytic activity/Vol] 92 U/L Normal 46-116 [facility] Comment on above: Performed By: #### L ACT #### [facility] [address] [address] [address] Megan Caballero ALT [Catalytic activity/Vol] 10 U/L Critically low 14-59 [facility] Comment on above: Performed By: #### L ACT #### [facility] [address] [address] [address] Megan Caballero Anion gap [Moles/Vol] 10.3 mmol/L Normal Th [facility] Comment on above: Performed By: #### L ACT #### [facility] [address] [address] [address] Megan Caballero AST [Catalytic activity/Vol] 14 U/L Critically low 15-37 [facility] Comment on above: Performed By: #### L ACT #### [facility] [address] [address] [address] Megan Caballero Bilirubin [Mass/Vol] 0.5 mg/dL Normal 0.2-1.0 [facility] Comment on above: Performed By: #### L ACT #### [facility] [address] [address] [address] Megan Caballero Calcium [Mass/Vol] 8.2 mg/dL Critically low 8.5-10.1 [facility] Comment on above: Performed By: #### L ACT #### [facility] [address] [address] [address] Megan Caballero Chloride [Moles/Vol] 104 mmol/L Normal 98-107 [facility] Comment on above: Performed By: #### L ACT #### [facility] [address] [address] [address] Megan Caballero CO2 [Moles/Vol] 28.2 mmol/L Normal 21.0-32.0 [facility] Comment on above: Performed By: #### L ACT #### [facility] [address] [address] [address] Megan Caballero Creatinine [Mass/Vol] 1.05 mg/dL Critically high 0.55-1.02 [facility] Comment on above: Performed By: #### L ACT #### [facility] [address] [address] [address] Megan Caballero EGFR-AF [place] >60 Normal >=60 [facility] Comment on above: Performed By: #### L ACT #### [facility] [address] [address] [address] Megan Caballero EGFR-NON AF [place] 50 mL/min/1.73m2 Critically low >=60 [facility] Comment on above: Performed By: #### L ACT #### [facility] [address] [address] [address] Megan Caballero Globulin (S) [Mass/Vol] 3.7 g/dL Normal [facility] Comment on above: Performed By: #### L ACT #### [facility] [address] [address] [address] Megan Caballero Glucose [Mass/Vol] 116 mg/dL Critically high 74-106 [facility] Comment on above: Performed By: #### L ACT #### [facility] [address] [address] [address] Megan Caballero Potassium [Moles/Vol] 3.5 mmol/L Normal 3.5-5.1 [facility] Comment on above: Performed By: #### L ACT #### [facility] [address] [address] [address] Megan Caballero Protein [Mass/Vol] 6.1 g/dL Critically low 6.4-8.2 Th [facility] Comment on above: Performed By: #### L ACT #### [facility] [address] [address] [address] Megan Caballero Sodium [Moles/Vol] 139 mmol/L Normal 136-145 [facility] Comment on above: Performed By: #### L ACT #### [facility] [address] [address] [address] Megan Caballero Urea nitrogen [Mass/Vol] 25.0 mg/dL Critically high 7.0-18.0 [facility] Comment on above: Performed By: #### L ACT #### [facility] [address] [place] [address] Dr. Megan Caballero Urea nitrogen/Creatinine [Mass ratio] 23.8 mg/mg Normal [facility] Comment on above: Performed By: #### L ACT #### [facility] [address] [place] [address] Dr. Megan Caballero PTTon 05-26-2022 aPTT Coag (Bld) [Time] 31.1 s Normal 22.3-36.2 [facility] Comment on above: Performed By: #### P TT #### [facility] [address] [place] [address] Dr. Megan Caballero UA RANDOMon 05-26-2022 Bilirubin Ql (U) Negative Normal NEGATIVE [facility] Comment on above: Performed By: #### U A #### [facility] [address] [place] [address] Dr. Megan Caballero Clarity (U) CLEAR Normal CLEAR [facility] Comment on above: Performed By: #### U A #### [facility] [address] [place] [address] Dr. Megan Caballero Color (U) LT. YELLOW Normal YELLOW [facility] Comment on above: Performed By: #### U A #### [facility] [address] [place] [address] Dr. Megan Caballero Glucose Ql (U) Negative Normal NEGATIVE [facility] Comment on above: Performed By: #### U A #### [facility] [address] [place] [address] Dr. Megan Caballero Hemoglobin Ql (U) MODERATE Abnormal NEGATIVE [facility] Comment on above: Performed By: #### U A #### [facility] [address] [place] [address] Dr. Megan Caballero Ketones Ql (U) Negative Normal NEGATIVE [facility] Comment on above: Performed By: #### U A #### [facility] [address] [place] [address] Dr. Megan Caballero LEUKOCYTES TRACE Abnormal NEGATIVE [facility] Comment on above: Performed By: #### U A #### [facility] [address] [place] [address] Dr. Megan Caballero Nitrite Ql (U) Negative Normal NEGATIVE [facility] Comment on above: Performed By: #### U A #### [facility] [address] [place] [address] Dr. Megan Caballero pH (U) 6.0 [pH] Normal 5-9 [facility] Comment on above: Performed By: #### U A #### [facility] [address] [place] [address] Dr. Megan Caballero SPEC GRAVITY 1.015 Normal 1.005-<=1. 025 [facility] Comment on above: Performed By: #### U A #### [facility] [address] [place] [address] Dr. Megan Caballero UA PROTEIN 30 mg/dl Abnormal NEGATIVE/ TRACE [facility] Comment on above: Performed By: #### U A #### [facility] [address] [place] [address] Dr. Megan Caballero Urobilinogen Qn (U) 0.2 {Renu'U}/dL Normal 0.2 - 1. 0 [facility] Comment on above: Performed By: #### U A #### [facility] [address] [place] [address] Dr. Megan Caballero XR CHEST 1 Von [...] Date: 2022-05-26 04:41 Normal [facility] CPKon 05-25-2022 CK [Catalytic activity/Vol] 73 U/L Normal 26-192 [facility] Comment on above: Performed By: #### U ACSIND #### [facility] [address] [address] [address] Megan Caballero CRPon 05-25-2022 CRP 11.9 mg/dL Critically high <=1.0 [facility] Comment on above: Performed By: #### C RP, URIC #### [facility] [address] [address] [address] Megan Caballero Covid-19 PCR ([facility])on SARS-CoV-2 (COVID-19) RNA YU+probe Ql (Unsp spec) Not detected Normal NOT DETECTED [facility] Comment on above: Result Comment: When diagnostic [...] for this test is supported by the [place] of Health and Human Service's declaration that [...] By: #### U ACSIND #### [facility] [address] [address] [address] Megan Caballero SED RATE WESTERGRENon 2022 SED RATE 55 mm/hr Critically high <=30 [facility] Comment on above: Performed By: #### S EDR #### [facility] [address] [place] [address] Dr. Megan Caballero TSHon 05-25-2022 TSH 0.533 uIU/mL Normal 0.358-3.74 0 [facility] Comment on above: Performed By: #### T SH #### [facility] [address] [place] [address] Dr. Megan Caballero UA (CLEAN/CATCH) TROLLEY WORKER/MICRO I F IND.on 05-25-2022 Bilirubin Ql (U) Negative Normal NEGATIVE [facility] Comment on above: Performed By: #### U ACSIND #### [facility] [address] [place] [address] Dr. Megan Caballero Clarity (U) CLEAR Normal CLEAR [facility] Comment on above: Performed By: #### U ACSIND #### [facility] [address] [place] [address] Dr. Megan Caballero Color (U) LT. YELLOW Normal YELLOW [facility] Comment on above: Performed By: #### U ACSIND #### [facility] [address] [place] [address] Dr. Megan Caballero Glucose Ql (U) Negative Normal NEGATIVE [facility] Comment on above: Performed By: #### U ACSIND #### [facility] [address] [place] [address] Dr. Megan Caballero Hemoglobin Ql (U) TRACE-LYSED Abnormal NEGATIVE [facility] Comment on above: Performed By: #### U ACSIND #### [facility] [address] [place] [address] Dr. Megan Caballero Ketones Ql (U) Negative Normal NEGATIVE [facility] Comment on above: Performed By: #### U ACSIND #### [facility] [address] [place] [address] Dr. Megan Caballero LEUKOCYTES Negative Normal NEGATIVE [facility] Comment on above: Performed By: #### U ACSIND #### [facility] [address] [place] [address] Dr. Megan Caballero Nitrite Ql (U) Negative Normal NEGATIVE [facility] Comment on above: Performed By: #### U ACSIND #### [facility] [address] [place] [address] Dr. Megan Caballero pH (U) 6.5 [pH] Normal 5-9 [facility] Comment on above: Performed By: #### U ACSIND #### [facility] [address] [place] [address] Dr. Megan Caballero SPEC GRAVITY 1.020 Normal 1.005-<=1. 025 [facility] Comment on above: Performed By: #### U ACSIND #### [facility] [address] [place] [address] Dr. Megan Caballero UA PROTEIN Negative Normal NEGATIVE/ TRACE [facility] Comment on above: Performed By: #### U ACSIND #### [facility] [address] [place] [address] Dr. Megan Caballero UR MICRO IND NOT INDICATED Normal [facility] Comment on above: Performed By: #### U ACSIND #### [facility] [address] [place] [address] Dr. Megan Caballero Urobilinogen Qn (U) 0.2 {Renu'U}/dL Normal 0.2 - 1. 0 [facility] Comment on above: Performed By: #### U ACSIND #### [facility] [address] [place] [address] Dr. Megan Caballero URIC ACID SERUMon 05-25-2022 Urate [Mass/Vol] 4.3 mg/dL Normal 2.6-6.0 [facility] Comment on above: Performed By: #### C RP, URIC #### [facility] [address] [place] [address] Dr. Megan Caballero XR FEMUR RTon 05-25-2022 [...] JELANI MAR Date: 2022-05-24 23:28 Normal [facility] CBC W MANUAL DIFFon 05-25-19 23 ATYPICAL LYMPH # Normal [facility] Comment on above: Performed By: #### L ACT #### [facility] [address] [place] [address] Dr. Megan Caballero ATYPICAL LYMPH % Normal [facility] Comment on above: Performed By: #### L ACT #### [facility] [address] [place] [address] Dr. Megan Caballero BAND # 0.0 103/ul Normal 0.0-0.3 [facility] Comment on above: Performed By: #### L ACT #### [facility] [address] [place] [address] Dr. Megan Caballero BAND % 0 % Normal 0-5 [facility] Comment on above: Performed By: #### L ACT #### [facility] [address] [place] [address] Dr. Megan Caballero BASOM # 0.00 103/ul Normal 0.00-0.10 [facility] Comment on above: Performed By: #### L ACT #### [facility] [address] [place] [address] Dr. Megan Caballero BASOM % 0.0 % Critically low 0.2-2.0 [facility] Comment on above: Performed By: #### L ACT #### [facility] [address] [place] [address] Dr. Megan Caballero BLAST # Normal [facility] Comment on above: Performed By: #### L ACT #### [facility] [address] [place] [address] Dr. Megan Caballero BLAST % Normal [facility] Comment on above: Performed By: #### L ACT #### [facility] [address] [place] [address] Dr. Megan Caballero CORRECTED WBC Normal 4.0-11.0 [facility] Comment on above: Performed By: #### L ACT #### [facility] [address] [place] [address] Dr. Megan Caballero EOS # 0.00 103/ul Normal 0.00-0.70 [facility] Comment on above: Performed By: #### L ACT #### [facility] [address] [place] [address] Dr. Megan Caballero EOS% 0.0 % Critically low 0.9-7.0 [facility] Comment on above: Performed By: #### L ACT #### [facility] [address] [place] [address] Dr. Megan Caballero HCT 37.2 % Normal 36.0-48.0 [facility] Comment on above: Performed By: #### L ACT #### [facility] [address] [place] [address] Dr. Megan Caballero HGB 12.2 g/dl Normal 12.0-16.0 [facility] Comment on above: Performed By: #### L ACT #### [facility] [address] [place] [address] Dr. Megan Caballero LYMPHM # 0.23 103/ul Critically low 1.20-3.80 [facility] Comment on above: Performed By: #### L ACT #### [facility] [address] [place] [address] Dr. Megan Caballero LYMPHM% 2.0 % Critically low 20.5-60.0 [facility] Comment on above: Performed By: #### L ACT #### [facility] [address] [place] [address] Dr. Megan Caballero MCH 28.6 pg Normal 26.7-34.0 [facility] Comment on above: Performed By: #### L ACT #### [facility] [address] [place] [address] Dr. Megan Caballero MCHC 32.8 g/dl Normal 29.9-35.2 [facility] Comment on above: Performed By: #### L ACT #### [facility] [address] [place] [address] Dr. Megan Caballero MCV 87.1 fL Normal 81.0-99.0 [facility] Comment on above: Performed By: #### L ACT #### [facility] [address] [place] [address] Dr. Megan Caballero METAMYELOCYTE # Normal [facility] Comment on above: Performed By: #### L ACT #### [facility] [address] [place] [address] Dr. Megan Caballero METAMYELOCYTE % Normal [facility] Comment on above: Performed By: #### L ACT #### [facility] [address] [place] [address] Dr. Megan Caballero MONOM# 0.23 103/ul Critically low 0.30-0.80 [facility] Comment on above: Performed By: #### L ACT #### [facility] [address] [place] [address] Dr. Megan Caballero MONOM% 2.0 % Normal 1.7-12.0 [facility] Comment on above: Performed By: #### L ACT #### [facility] [address] [place] [address] Dr. Megan Caballero MPV 9.5 fL Normal 9.5-13.5 [facility] Comment on above: Performed By: #### L ACT #### [facility] [address] [place] [address] Dr. Megan Caballero MYELOCYTE # Normal [facility] Comment on above: Performed By: #### L ACT #### [facility] [address] [place] [address] Dr. Megan Caballero MYELOCYTE % Normal [facility] Comment on above: Performed By: #### L ACT #### [facility] [address] [place] [address] Dr. Megan Caballero NRBC Normal [facility] Comment on above: Performed By: #### L ACT #### [facility] [address] [place] [address] Dr. Megan Caballero PLT 197 103/ul Normal 150-450 [facility] Comment on above: Performed By: #### L ACT #### [facility] [address] [place] [address] Dr. Megan Caballero RBC 4.27 106/ul Normal 4.20-5.40 [facility] Comment on above: Performed By: #### L ACT #### [facility] [address] [place] [address] Dr. Megan Caballero RDW 13.1 % Normal 11.0-15.0 [facility] Comment on above: Performed By: #### L ACT #### [facility] [address] [place], [place] [address] Dr. Megan Caballero SEG # 10.85 103/ul Critically high 1.40-6.50 [facility] Comment on above: Performed By: #### L ACT #### [facility] [address] [place], [place] [address] Dr. Megan Caballero SEG % 96.0 % Critically high 43.0-75.0 [facility] Comment on above: Performed By: #### L ACT #### [facility] [address] [place], [place] [address] Dr. Megan Caballero WBC 11.3 103/ul Critically high 4.0-11.0 [facility] Comment on above: Performed By: #### L ACT #### [facility] [address] [place] [id number] Megan Caballero CRPon 05-24-2022 CRP 1.7 mg/dL Critically high <=1.0 [facility] Comment on above: Performed By: #### L ACT #### [facility] [address] [place] [address] [address] PELVIS WO CONon [...] of iterative reconstruction technique. FINDINGS: The initial sticker operator views demonstrate bilateral total hip prostheses. [...] Date: 2022-05-24 21:51 Normal [facility] PROF CHEM 8 (BAS METB)on Anion gap [Moles/Vol] 12.6 mmol/L Normal [facility] Comment on above: Performed By: #### L ACT #### [facility] [address] [place] [address] [address] Megan Caballero Calcium [Mass/Vol] 8.6 mg/dL Normal 8.5-10.1 [facility] Comment on above: Performed By: #### L ACT #### [facility] [address] [place] [address] Dr. Megan Caballero Chloride [Moles/Vol] 102 mmol/L Normal 98-107 [facility] Comment on above: Performed By: #### L ACT #### [facility] [address] [place] [address] [address] Megan Caballero CO2 [Moles/Vol] 28.6 mmol/L Normal 21.0-32.0 [facility] Comment on above: Performed By: #### L ACT #### [facility] [address] [place] [address] Dr. Megan Caballero Creatinine [Mass/Vol] 0.73 mg/dL Normal 0.55-1.02 [facility] Comment on above: Performed By: #### L ACT #### [facility] [address] [place] [address] [address] Megan Caballero EGFR-AF [place]ONG K[place]ER >60 Normal >=60 [facility] Comment on above: Performed By: #### L ACT #### [facility] [address] [place] [address] Dr. Megan Caballero EGFR-NON AF [place]ER >60 Normal >=60 [facility] Comment on above: Performed By: #### L ACT #### [facility] [address] [place] [address] [address] Megan Caballero Glucose [Mass/Vol] 121 mg/dL Critically high 74-106 T [facility] Comment on above: Performed By: #### L ACT #### [facility] [address] [place] [address] [address] Megan Caballero Potassium [Moles/Vol] 3.2 mmol/L Critically low 3.5-5.1 [facility] Comment on above: Performed By: #### L ACT #### [facility] [address] [place] [address] [address] Megan Caballero Sodium [Moles/Vol] 140 mmol/L Normal 136-145 [facility] Comment on above: Performed By: #### L ACT #### [facility] [address] [place] [address] [address] Megan Caballero Urea nitrogen [Mass/Vol] 15.0 mg/dL Normal 7.0-18.0 [facility] Comment on above: Performed By: #### L ACT #### [facility] [address] [place] [address] Dr. Megan Caballero Urea nitrogen/Creatinine [Mass ratio] 20.5 mg/mg Normal [facility] Comment on above: Performed By: #### L ACT #### [facility] [address] [place] [address] [address] Megan Caballero SED RATE [facility] 2022 SED RATE 54 mm/hr Critically high <=30 [facility] Comment on above: Performed By: #### S EDR #### [facility] [address] [place] [address] Dr. Megan Caballero CNOVon 05-30-2020 CNOV Office Visit (UROLAV ) ANGELIKA MUIR ([id number]) 1940 [place] Date Time Provider Department 05/30/20 6:00 PM NEGRO POMPA During your visit today, we recorded the following information about you: Pulse Blood pressure Weight 101/minute 141/67 98.4 kg Negro Pompa MD 05/30/2020 6:55 PM Signed [facility] [...] Via bladder scan. Referring Provider: NEGRO POMPA [[id number]] Allergies As of Date: 05/30/2020 Noted Allergy [...] 01/10/2014 Visit Notes: >> Kell Arauz MA [facility] May 30, 2020 6:31 PM Status: Signed PVR = 71 ml Via bladder scan. Medications Discontinued During This Encounter Prescriptions - solifenacin 10 mg tablet (Discontinued) Take 5 mg by mouth once daily. Encounter Status:Closed by NEGRO POMPA MD on 05/30/20 [facility] CNCOon 05-28-2020 CNCO Letter Text [facility] ANES POSTPROC EVALon 021 ANES POSTPROC EVAL HNO ID: [id number] Author: Ihsan Gamino Service: Anesthesiology Author Type: Anesthesiologist Type: Anesthesia Postprocedure Evaluation Filed: 05/01/2020 4:49 PM Note Text: POST ANESTHESIA EVALUATION NOTE : 1940 Procedure Summary Date: 05/01/20 Room / Location: [address] Anesthesia Start: 1504 Anesthesia Stop: 1620 [...] SIGNATURE: Ihsan Gamino MD PATIENT NAME: Angelika uMir DATE: May 01, 2020 TIME: 4:49 PM CSN: [id number] [facility] ANES PRE-OPon 05-01-2020 ANES PRE-OP HNO ID: [id number] Author: Ihsan Gamino Service: Anesthesiology Author Type: [...] May 01, 2020 TIME: 3:53 PM CSN: [id number] [facility] HISTORY PHYSICALon HISTORY PHYSICAL HNO ID: [id number] Author: Negro Pompa Service: Urology Author Type: [...] Pompa MD May 01, 2020 1:22 PM [facility] OPERATIVE NOon 05-01-2020 OPERATIVE NO HNO ID: [id number] Author: Negro Pompa Service: Urology Author Type: Physician Type: Operative Report Filed: 05/01/2020 5:00 PM Note Text: OPERATIVE/PROCEDURE REPORT LOG ID: [id number] SURGERY/PROCEDURE DATE: 05/01/2020 INCISION/PROCEDURE START TIME: 3:28 PM INCISION CLOSE/PROCEDURE END TIME: 4:05 PM SURGEON(S)/PROCEDURALIST(S) AND ROBOTIC WELD TECHNICIAN(S): Surgeon(s) and Role: * Negro Peña - [...] 01, 2020 TIME: 4:45 PM PAGER/CONTACT #: [facility] SURGICAL PATHOLOGYon 021 SURGICAL PATHOLOGY Specimen originated from [facility] Specimen #: [id number] Submitting Physician: NEGRO POMPA FINAL DIAGNOSIS Vaginal [...] cassette. DOUG/evens 05/02/2020 Gross examination performed at [facility], [facility] [address] [place] [address] Date of Report: 05/06/2020 Date of Procedure: 05/01/2020 Date of Receipt: 05/02/2020 Submitted by: NEGRO POMPA Location: [facility] Diagnostic interpretation performed at [facility], [address] [place] [address]. CLIA Number: [id number] Normal [facility] HOSPon 04-19-2020 HOSP Patient:Nany Muir MRN: [...] notes entered within the past 30 days [facility] Provider Letteron 11-21-2019 Provider Letter (Inserted Image. Patricia ble to display) November 21, 2019 [address] MUIR [address] [place] [id number] ANGELIKA MUIR 1940 Dear Angelika, You missed [...] understanding. Sincerely, [facility]/Dr De La Cruz [facility] Ambulatory Clinical Summaryo n 10-27-2019 Ambulatory Clinical Summary {[id number]}CD:[id number] 68 [facility] Patient Educationon 10-24-19 20 Patient Education [...] bladder worse. Your healthcare provider or a air grinder can explain ways to change what you [...] Document Reviewed: 01/02/2010 ExitCare? Patient Information ?2013 [employer]. [facility] Urology Office/Clinic Noteon 10-24-2019 Urology Office/Clinic [...] in 1 month. Ordered: PVR urine/bladder capacity/US 18636 Urnls Dip Stick Auto w/o Microscopy POC 50987 2. Other urethral stricture, female (N35.82: Other [...] Daily, # 30 tab(s), Refills(s) 1, [facility], 170, cm, 10/24/19 14:15:00 EDT, Height/Length Measured, 100, kg, 10/24/19 14:15:00 EDT, Weight Measured I have reviewed the previous health record information and history for this patient from Dr. De La Cruz Follow-up With When Contact Information Jono Faust MD, Bandar Devine In 1 month [facility] [address], [place] [address]- Additional Instructions: w/ PVR Patient Education Overactive [...] Protein Urine Dipstick: Negative (10/24/19 14:03:00) Specific Orma Urine Dipstick: 1.025 (10/24/19 14:03:00) Urine Appearance Urine Dipstick: Clear (10/24/19 14:03:00) Urine Color Urine Dipstick: Yellow (10/24/19 14:03:00) Urobilinogen Urine Dipstick: Normal 0.2-1 EU/dl (10/24/19 14:03:00) pH Urine Dipstick: 5.5 (10/24/19 14:03:00) Diagnostic Results PVR was reviewed at 85 cc. Urinalysis shows no infection. Normal [facility] Comment on above: Result Comment: Elec tronically Signed By: Jono Faust MD, Bandar Devine\.br\Date and Time Signed: 10/24/19 14:59 EDT\.br\Electronically Co-Signed By: Lida Ybarra MA\.br\Date and Time Co-Signed: 10/24/19 14:56 EDT Ambulatory Clinical Summaryo n 08-24-2019 Ambulatory Clinical Summary {[id number]}CD:[id number] 68 Normal [facility] Reminderson 04-24-2019 Reminders - From: Krisetn Rivero To: [facility] - Clinical; Sent: 04/04/2019 15:20:13 EST Show up: 04/24/2019 07:00:00 EST Subject: Urodynamics Report Due Date/Time: 04/24/2019 07:00:00 EST Reminder/Recall Show Dr. De La Cruz results, patient may need scheduled for Cysto/TVT sling Test: Urodynamics Test being done 04/20/19 @ [facility] From: Flii Morgan MA (EU - Clinical) To: Jono Faust MD, Bandar Devine; Sent: 04/24/2019 08:02:48 EST Show up: 04/24/2019 08:02:00 EST Subject: RE: Urodynamics Report Please review Urodynamics report. Per message, Pt may need scheduled for Cysto/ TVT [facility] Coding Summary.on 04-21-2019 Coding Summary. CODING DATE: 020 FINAL [facility] STATUS: Home (Routine DC) PAYOR: Medicare APC [...] Garces Date Saved: 04/21/2019 01:56 pm Normal [facility] Patient Summaryon 02-02-2019 Patient Summary PATIENT DISCHARGE INSTRUCTIONS If you are having an emergency and are not able to reach your physician, CALL 911 or go to the nearest emergency room and take this document with you. [facility] 02/02/19 09:32 [address] [place]. [address] PATIENT INFORMATION -- Name: ANGELIKA MUIR Judy Address: [address] [place] [id number] Age: 78 Years Phone: [phone] : 1940 12:[birth year] MRN: [facility][id number] Sex: Female Race: White Ethnicity: Not Hispan/Lat Admitted From: Clinic or [facility] Medical Service: Orthopedic Surgery Nurse Unit/Bed: (CO) 2N 0219-01 Admit Date: 01/30/2019 05:59 PCP: Eduardo Rose MD PHYSICIANS INVOLVED WITH CARE Attending Physicians: Amrik Vickers MD - Orthopaedic Surg Admitting Physician: Amrik Vickers MD - Orthopaedic Surg Primary Care Physician:Eduardo Rose MD,Internal Medicine, - Consults: Elbert Gleason [facility] - [facility] FOLLOW-UP APPOINTMENTS: Provider: Specialty: Address: Date: Amrik Vickers MD Orthopaedic Surg [address] [facility] [address] (1) Six Weeks Comment: Call for an Appointment Provider: Specialty: Address: Date: Eduardo Rose MD Internal Medicine [facility] [address] [facility] [address] (1) Follow-up as needed Provider: Specialty: Address: Date: SNF: [facility] [phone] Follow-up as needed ALLERGIES: No Known Medication [...] doses are changed, or new medications (including uvhm-ueu-barkjrr products) are added. Ask your doctor if [...] Decisions Type: Living Will, Medical Power of Police Officer Booking Copy of Advance Directive/Health Care Decisions on Chart: Patient/Family asked to provide copy SUICIDE HOTLINE: Your mental and emotional well-being are important. If you are in a mental health crisis, or having thoughts of suicide, please call the nationwide suicide hotline, anytime day or night, at 2-459-624-LKMX. Important information about accessing your health information through the [facility] patient portal If you initiated the self-registration process for [facility] during your stay, please check your personal email for an invitation to enroll in [employer] and complete the steps outlined in the email. If you would prefer to enroll while in the hospital, ask a member of your care team. We would be happy to assist you. If you have already enrolled in [employer], go to [email or web address] to login and access your health information. Thank you for choosing [facility]. PATIENT EDUCATION Fall Prevention in the Home [...] wet floors. ???Place frequently used items in cseh-vz-hwnxh places. ???If you need to reach for something above you, use a sturdy step stool that has a grab bar. ???Keep electrical cables out of the way. ???Do not use floor hebrew or wax that makes floors slippery. If [...] include working with a physical therapist or certified personal trainer to improve your strength, balance, and endurance. This information is not intended to replace advice given to you by your health care provider. Make sure you discuss any questions you have with your health care provider. Document Released: 02/26/2003 Document Revised: 07/23/2015 Document Reviewed: 04/12/2015 [employer] Patient Education ?2016 [employer] Incentive Spirometer An incentive spirometer is [...] 07/19/2007 Document Revised: 03/29/2015 Document Reviewed: 10/15/2014 [employer] Interactive Patient Education ?2016 [employer]. Pain [...] liver damage. Acetaminophen is found in many fomj-gum-wmcdajp (OTC) and prescription medicines. If you are [...] 06/14/2001 Document Revised: 07/23/2015 Document Reviewed: 01/10/2015 [employer] Patient Education ?2016 [employer] Preventing Constipation After Surgery Constipation is [...] a bowel movement. ???Having hard, dry, or pkhujk-ktwz-yoocwu stools. ???Feeling full or bloated. ???Having pain in the lower abdomen. ???Not feeling relief after having a bowel movement. HOME CARE INSTRUCTIONS Diet ???Eat foods that have a lot of fiber. These include fruits, vegetables, whole grains, and beans. Limit foods high in fat and processed sugars. These include tajik fries, hamburgers, cookies, and candy. ???Take a [...] softener, laxative, or fiber supplement. ???Only take sqro-eni-jiqqfhb or prescription medicines as directed by your [...] 07/03/2013 Document Revised: 03/29/2015 Document Reviewed: 07/03/2013 [employer] Interactive Patient Education ?2016 [employer] Venous Thromboembolism, Prevention A venous thromboembolism [...] Reviewed: 07/03/2015 [employer] Interactive Patient Education ?2016 [employer]. VIRUSES OR BACTERIA: WHAT'S GOT [...] to Patient Clinician Signature __ Date/Time Normal [facility] Basic Metabolic Panelon 11-1 Calcium [Mass/Vol] 8.4 mg/dL Low 8.5-10.6 [facility] Chloride [Moles/Vol] 105 mmol/L Normal 98-107 [facility] CO2 [Moles/Vol] 32 mmol/L Normal 21-32 [facility] Creatinine [Mass/Vol] 0.77 mg/dL Normal 0.55-1.02 [facility] Glucose [Mass/Vol] 108 mg/dL High 70-99 [facility] [facility] Potassium [Moles/Vol] 4.1 mmol/L Normal 3.5-5.1 [facility] Sodium [Moles/Vol] 141 mmol/L Normal 136-145 [facility] Urea nitrogen (BldV) [Mass/Vol] 20 mg/dL High 7.0-18.0 [facility] Urea nitrogen/Creatinine [Mass ratio] 26 mg/mg Normal [facility] Basic Metabolic Panelon 01-20 Calcium [Mass/Vol] 8.4 mg/dL Low 8.5-10.6 [facility] Chloride [Moles/Vol] 105 mmol/L Normal 98-[facility] CO2 [Moles/Vol] 31 mmol/L Normal 21-32 [facility] Creatinine [Mass/Vol] 0.86 mg/dL Normal 0.55-1.02 [facility] Glucose [Mass/Vol] 101 mg/dL High 70-99 [facility] Potassium [Moles/Vol] 4.1 mmol/L Normal 3.5-5.1 [facility] Sodium [Moles/Vol] 140 mmol/L Normal 136-145 [facility] Urea nitrogen (BldV) [Mass/Vol] 21 mg/dL High 7.0-18.0 [facility] Urea nitrogen/Creatinine [Mass ratio] 24 mg/mg Normal [facility] Anesthesia Recordon 01-31-20 Anesthesia Record Patient: TRAN MUIR MRN: ([id number] Age: 78 years Sex: Female : 1940 Associated Diagnoses: None Author: Nadine Barrera MD Procedure Time Out [place] Protocol: patient identity verified, site verified, side verified, procedure to be done verified, patient position verified. REGIONAL ANESTHESIA PROCEDURE Procedure date and begin time: See nurses notes. Procedure date and end time: See nurses notes. Performed by: Nadine Barrera MD. Assisted by: no clinical medical assistant. Informed consent: signed by patient. Technique: [...] Diagnosis: M25.561 M17.11 Knee Pain . Normal [facility] Anesthesia Record Patient: TRAN MUIR Age: 78 years Sex: Female : 1940 Associated Diagnoses: None Author: Nadine Barrera MD Procedure Time Out [place] Protocol: patient identity verified, site verified, side verified, procedure to be done verified, patient position verified. REGIONAL ANESTHESIA PROCEDURE Procedure date and begin time: See nurses notes. Procedure date and end time: See nurses notes. Performed by: Nadine Barrera MD. Assisted by: no clinical medical assistant. Informed consent: signed by patient. Technique: [...] M25.561 M17.11 Knee Pain OA . Normal [facility] Basic Metabolic Panelon 01-20 Calcium [Mass/Vol] 9.0 mg/dL Normal 8.5-10.6 [facility] Chloride [Moles/Vol] 106 mmol/L Normal 98-107 [facility] CO2 [Moles/Vol] 29 mmol/L Normal 21-32 [facility] Creatinine [Mass/Vol] 0.84 mg/dL Normal 0.55-1.02 [facility] Glucose [Mass/Vol] 105 mg/dL High 70-99 [facility] Potassium [Moles/Vol] 3.7 mmol/L Normal 3.5-5.1 [facility] Sodium [Moles/Vol] 143 mmol/L Normal 136-145 [facility] Urea nitrogen (BldV) [Mass/Vol] 23 mg/dL High 7.0-18.0 [facility] Urea nitrogen/Creatinine [Mass ratio] 27 mg/mg Normal [facility] OR Nursingon 01-30-2019 OR Nursing Normal [facility] PACU I Nursingon 01-30-2019 PACU I Nursing CO NA PACU I Nursing Record Summary Primary Physician: [place] SIEGEL , Amrik Sutton Finalized Date/Time: 01/30/19 12:48:37 Pt. Name: JOSEANGELIKA/Sex: 1940 Female Med Rec #: [id number] Physician: Amrik Vickers MD Financial #: [id number] Pt. Type: I Room/Bed: 0219/ Admit/Disch: 01/30/19 [...] By: Ana Rosas RN 01/30/19 12:48 Normal [facility] PreOp Nursingon 01-30-2019 PreOp Nursing CO NA PreOp Nursing Record Summary Primary Physician: Amrik Vickers MD Finalized Date/Time: 01/30/19 09:02:48 Pt. Name: JOSEANGELIKA/Sex: 1940 Female Med Rec #: [id number] Physician: Amrik Vickers MD Financial #: [id number] Pt. Type: I Room/Bed: / Admit/Disch: 01/30/19 [...] By: Chelsy Batista RN 01/30/19 09:02 Normal [facility] Basic Metabolic Panelon 12-22 Calcium [Mass/Vol] 9.0 mg/dL Normal 8.5-10.6 [facility] Chloride [Moles/Vol] 103 mmol/L Normal 98-107 [facility] CO2 [Moles/Vol] 31 mmol/L Normal 21-32 [facility] Creatinine [Mass/Vol] 0.78 mg/dL Normal 0.55-1.02 [facility] Glucose [Mass/Vol] 90 mg/dL Normal 70-99 [facility] Potassium [Moles/Vol] 4.1 mmol/L Normal 3.5-5.1 [facility] Sodium [Moles/Vol] 142 mmol/L Normal 136-145 [facility] Urea nitrogen (BldV) [Mass/Vol] 19 mg/dL High 7.0-18.0 [facility] Urea nitrogen/Creatinine [Mass ratio] 24 mg/mg Normal [facility] CBC with Differentialon 12-22 Basophils (Bld) [#/Vol] 0.0 thou/mcL Normal 0.0-0.2 [facility] Basophils/100 WBC (Bld) 0.8 % Normal 0-3 [facility] Differential cell count method Nom (Bld) AUTOMATED DIFFERENTIAL Normal [facility] Eosinophils (Bld) [#/Vol] 0.1 thou/mcL Normal 0.0-0.4 [facility] Eosinophils/100 WBC (Bld) 2.0 % Normal 0-7 [facility] Erythrocyte distribution width (RBC) [Entitic vol] 14.4 % Normal 11.7-15.0 [facility] Hematocrit (Bld) [Volume fraction] 36.7 % Normal 34.0-50.0 [facility] Hemoglobin (Bld) [Mass/Vol] 12.1 g/dL Normal 11.5-17.0 [facility] Lymphocytes (Bld) [#/Vol] 1.3 thou/mcL Normal 0.7-4.5 [facility] Lymphocytes/100 WBC (Bld) 26.0 % Normal 14-46 [facility] MCH (RBC) [Entitic mass] 29.2 Picograms Normal 27.0-34.0 [facility] MCHC (RBC) [Mass/Vol] 32.9 g/dL Normal 32.0-36.0 [facility] MCV (RBC) [Entitic vol] 88.7 fL Normal 80-98 [facility] Monocytes (Bld) [#/Vol] 0.4 thou/mcL Normal 0.1-1.0 [facility] Monocytes/100 WBC (Bld) 8.5 % Normal 4-13 [facility] Neutrophils (Bld) [#/Vol] 3.1 thou/mcL Normal 1.5-7.8 [facility] Neutrophils/100 WBC (Bld) 62.7 % Normal 40-74 [facility] Platelet mean volume (Bld) [Entitic vol] 8.4 fL Normal 7.5-11.2 [facility] Platelets (Bld) [#/Vol] 214 thou/mcL Normal 140-415 [facility] RBC (Bld) [#/Vol] 4.13 x(10)6/mcL Normal 3.80-5.60 [facility] WBC (Bld) [#/Vol] 5.0 thou/mcL Normal 4.0-10.5 [facility] Culture Methicillin Resistan t Staph aureuson 01-19-2019 MRSA isol Org specific cx Ql (Unsp spec) [facility] Microbiology PROCEDURE: Culture Methicillin Resistant Staph aureus SOURCE: Nasal Swab BODY SITE: COLLECTED DATE/TIME: 01/19/2019 15:10 EDT RECEIVED DATE/TIME: 01/19/2019 15:10 EDT START DATE/TIME: 01/19/2019 15:10 EDT FREE TEXT SOURCE: NASAL SWAB-. INTERFACED REPORTS Final Report [] Verified Date/Time/Personnel: 01/20/2019 21:24 EDT CONTRIBUTOR_SYSTEM, CO_PN *MRSA SCREEN* NEGATIVE FOR METHICILLIN(OXACILLIN) RESISTANT STAPHYLOCOCCUS AUREUS. Normal [facility] Comment on above: Performed By: #### 1 [id number] #### [facility] [address], [place] Partial Thromboplastin Time (aPTT)on 01-19-2019 aPTT Coag (PPP) [Time] 31 Sec Normal 23.2-34.6 [facility] Prothrombin Timeon 9 INR Coag (Bld) [Relative time] 1.0 {INR} Normal [facility] Comment on above: Result Comment: KARLENE RODARTE THE INDUCTION PHASE OF ORAL ANTICOAGULATION, THE INR MAY NOT REFLECT THE ANTICOAGULANT STATUS OF THE PATIENT. THERAPEUTIC RANGES FOR INR'S ARE: MOST CLINICAL SITUATIONS: INR 2.0-3.0 MECHANICAL PROSTHETIC VALVES: INR 2.5-3.5 CRITICAL: INR 5.0 PT Coag (PPP) [Time] 12.6 Sec Normal 11.9-14.6 [facility] XR C-Spine 4-5 Viewson 01-19 XR C-Spine [...] disease, notably advanced at C5-C6 and C6-C7. Howes thanks you for the opportunity to care for your patient. Workstation ID: [id number] FINAL REPORT Dictated By: Fritz Styles MD 01/19/2019 21:13 Assigned Physician: Fritz Styles MD Reviewed and Electronically Signed By: Fritz Styles MD 01/19/2019 21:17 Transcribed by: JESSIE 01/19/2019 21:13 Technologist: KAYLIN [facility] Culture Anaerobicon 10-19-19 19 Bacteria identified Anaer cx Nom (Unsp spec) [facility] Microbiology PROCEDURE: Culture Anaerobic SOURCE: Joint [...] 20:16 EDT CONTRIBUTOR_SYSTEM, CO_PN CULTURE IN PROGRESS [facility] Comment on above: Performed By: #### 6 35-3 #### [address] Culture Body Fluid + Suscept ibility + Smear Directon 10-18-2018 Bacteria identified Sterile body fluid culture Nom (Unsp spec) [facility] Microbiology PROCEDURE: Culture Body Fluid + [...] NO EPITHELIALS SEEN, NO ORGANISMS SEEN Normal [facility] Comment on above: Performed By: #### 6 36-1 #### [id number] [place], [place] Culture Funguson 10-18-2018 Fungus identified Cx Nom (Unsp spec) [facility] Microbiology PROCEDURE: Culture Fungus SOURCE: Joint [...] WILL BE HELD FOR 1-4 WEEKS Normal [facility] Comment on above: Performed By: #### 5 80-1 #### [id number] [place], [place] XR SHOULDER LEFT MIN 2 VIEWS [...] have reviewed andapproved this report. Normal [facility] Cardiovascular Lab Reporton 11-07-2016 Cardiovascular Lab Report [facility] Patient Name: Angelika Muir [facility] MR #: [id number] Physician: Ankur Bhakta M.D.Medicine Service Date: 11/06/2016Division of Birthdate: 1940Cardiology Room #: [facility] [address] Fax Cardiovascular Laboratory ReportINDICATIONS: Ms. 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 Isaw her in our [place] office. She has had a complete evaluation [...] 12:02 P Ankur France M.D.Date Dict: 11/06/2016/03:29 Ryley/Ankur France M.D.Date Trans: 11/07/2016 06:05 A/[id number]: Eduardo Rose M.D. [address] [place] [address] [facility] Vital Signs Date Time Vital Sign Value Performing Clinician Facility 03-24-2024 10:38-0500 Body height 162.6 cm Otis Furlong DO [facility] [place] 03-24-2024 10:38-0500 Body mass index (BMI) [Ratio] 29.01 kg/m2 Otis Furlong DO Work Phone: [facility] [place] 03-24-2024 10:38-0500 Body temperature 98.2 [degF] Otis CLEARlong DO Work Phone: [facility] [place] 03-24-2024 10:38-0500 Body weight 76.66 kg [facility] 03-24-2024 10:38-0500 Diastolic blood pressure 56 mm[Hg] Otis Furlong DO Work Phone[facility] [place] [place] 03-24-2024 10:38-0500 Heart rate 96 /min Otis CLEARlong DO Work Phone: [facility] [place] [place] 03-24-2024 10:38-0500 Respiratory rate 20 /min Otis CLEARlong DO Work Phone: [facility] [place] [place] 03-24-2024 10:38-0500 SaO2% (BldA) [Mass fraction] 100 % Otis CLEARlong DO Work Phone: [facility] [place] [place] 03-24-2024 10:38-0500 Systolic blood pressure 120 mm[Hg] Otis Furlong DO Work Phone: [facility] [place] [place] 11-07-2023 02:09-0400 Diastolic blood pressure 58 mm[Hg] DO Yolanda Schwerer Work Phone: [facility] 11-07-2023 02:09-0400 Heart rate 83 /min DO Yolanda Schwerer Work Phone: [facility] 11-07-2023 02:09-0400 Respiratory rate 18 /min DO Yolanda Schwerer Work Phone: [facility] 11-07-2023 02:09-0400 SaO2% (BldA) [Mass fraction] 98 % DO Yolanda Schwerer Work Phone: [facility] 11-07-2023 02:09-0400 Systolic blood pressure 122 mm[Hg] DO Yolanda Schwerer Work Phone: [facility] 11-06-2023 22:54-0400 Body height 170.18 cm DO Yolanda Schwerer Work Phone: [facility] 11-06-2023 22:54-0400 Body temperature 98 [degF] DO Yolanda Schwerer Work Phone: [facility] 11-06-2023 22:54-0400 Body weight 58.96 kg DO Yolanda Schwerer Work Phone: [facility] 03-24-2021 15:45-0500 Body height 166.37 cm Yolanda Schwerer Other [employer] Other 03-24-2021 15:45-0500 Body mass index (BMI) [Ratio] 35.23 kg/m2 Yolanda Schwerer Other [employer] Other 03-24-2021 15:45-0500 Body temperature 99.4 [degF] Yolanda Schwerer Other [employer] Other 03-24-2021 15:45-0500 Body weight 97.52 kg Yolanda Schwerer Other [employer] Other 03-24-2021 15:45-0500 Diastolic blood pressure 78 mm[Hg] Yolanda Schwerer Other [employer] Other 03-24-2021 15:45-0500 SaO2% (BldA) [Mass fraction] 96 % Yolanda Schwerer Other [employer] Other 03-24-2021 15:45-0500 Systolic blood pressure 132 mm[Hg] Yolanda Schwerer Other [employer] Other Encounters Encounter Date Encounter Type Care Provider Facility Start: 07-17-2024 End: 07-17-2024 [facility] Start: 06-21-2024 End: 06-21-2024 Telephone encounter Demet[facility] Internal [facility] - Family [facility] Start: 06-12-2024 End: 06-12-2024 ambulatory Tony Holguin MD Facility: [facility] Start: 06-11-2024 End: 06-11-2024 Refill Otis Chaves DO Work Phone: [facility] Start: 05-22-2024 End: 05-22-2024 Orders Only Otis Chaves DO Work Phone: [facility] Comment on above: Lumbar spondylosis ( Primary Dx); Spinal stenosis of lumbar region, unspecified whether neurogenic claudication present Start: 04-03-2024 End: 04-03-2024 Refill Kian[facility] D[facility] Start: 03-24-2024 End: 03-24-2024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
[2024-08-21 11:26] VITALS: BP 119/80; PULSE 89; TEMP 36.2; O2SAT 100
[2024-08-21] MEDS: BUPIVACAINE HCL 0.25% PF 25 MG/10 ML VIAL INJ (12:00)
[2024-08-21] MEDS: METHYLPREDNISOLONE ACETATE 40 MG/ML VIAL INJ (12:00)
[2024-08-21] MEDS: LIDOCAINE HCL 2% 400 MG/20 ML MDV INJ (12:00)
[2024-08-21 12:01] VITALS: BP 161/77; BP 163/77; PULSE 83; PULSE 89; O2SAT 100; O2SAT 97
[2024-08-21] MEDS: IOHEXOL 240 MG/ML - 10 ML VIAL 24 MG INJ (12:01)
--- NOTE | 2024-08-21 12:04 | W.PM.PROCNOT ---
Date of procedure: 08/21/24 Pre-op diagnosis: Pain due to right shoulder osteoarthritis Post-op diagnosis: same as pre-op Procedure: Procedure: Right suprascapular and axillary nerve block Medications: Bupivacaine 0.25% 3cc, depomedrol 40mg The patient was seen and examined in the preoperative holding area. Informed consent was obtained and placed on the chart.? The patient was brought to the medical procedure unit and placed in the prone position. A timeout was completed verifying correct patient, procedure site, positioning, plan, and special equipment.? Using aseptic technique, under direct fluoroscopic visualization, a 25-gauge 3-1/2 inch spinal needle was advanced to the superior portion of the right posterior osseous rim of the glenoid fossa, lateral and superior to the spinal glenoid notch.? 0.5 cc of the above solution was injected.? The needle was then redirected 3 mm inferiorly and another 0.5 cc of the above medication was injected.? This needle was then removed.? Using aseptic technique, under direct fluoroscopic visualization, another 25-gauge 3-1/2 inch spinal needle was advanced toward the most inferior and lateral border of the greater tubercle.? 0.5 cc of the above medication was administered.? The needle was then redirected 3 mm inferiorly.? 0.5 cc was administered in this region.? This needle was removed. ? The patient was taken to the postprocedural recovery area and monitored for an appropriate length of time before being found suitable for discharge in the accompaniment of a responsible adult. Anesthesia: Local Surgeon: Tony Holguin Pathology: none sent Condition: stable Disposition: no change
== END 2024-08-21 12:11 | disposition home or self-care (01) ==
LOC: SURGOUT 10:58
PROVIDERS: PCP Family Medicine; Visit Provider Anesthesiology
DX: M25.511 Pain in right shoulder (principal); M19.011 Primary osteoarthritis, right shoulder
CPT/HCPCS: 64417; 64418; J0665; J1010; Q9966

== ENCOUNTER 2024-08-30 12:45 | Outpatient (OUT) | payer MEDICARE, OTHER, SELFPAY ==
--- OUTSIDE RECORDS SUMMARY | 2024-08-30 12:47 | XMS_ITS | Encounter Summary ---
Author Organization [employer] Address [id number] [address] [place] [address] Care Team Providers Care Analytical Lab Analyst Name Role Phone Otis Jiménez Primary Care Provider + [phone] Encounter Details Date Type Department Care Team (Late st Contact Info) Description 07/02/2023 Orders Only [facility] Internal Medicine - Family Medicine [address] [place] [address] External, Scanning Provider Social History Tobacco Use Types Packs/Day Years Used Date Smoking Tobacco: Former Cigarettes Smokeless Tobacco: Never Comments:only smoked for 3 m [facility] 60 years ago, 2 cigarettes a day Alcohol Use Standard Drinks/Week Comments Not Currently 0 (1 standard drink = 0.6 oz pur e alcohol) rare- on new years clive [facility] Utilities Answer Date Recorded In the [...] often do you attend chur ch or shinto services? More than 4 times per year 06/24/2023 Do you belong to any clubs o r organizations such as latter day groups, unions, fraternal or athletic groups, or [...] Answer Date Recorded Total Score 0 06/24/2023 [facility] - Occupational Stress [...] Recorded Do you need help finding a [facility] and/or a training program? [...] - Family Medicine [address] [place] [address] Otis Jiménez DO [address] [facility], [facility] [place] [address] documented as of this encounter Procedures Procedure [...] documented as of this encounter Care Teams Analytical Lab Analyst Relationship Specialty Start Date End Date Otis Jiménez DO [address] [facility] [place] [address] PCP - General Family Medicine 10/03/21 documented as of this encounter
--- OUTSIDE RECORDS SUMMARY | 2024-08-30 12:47 | XMS_ITS | Encounter Summary ---
Author Organization [facility] Address [id number] [address] [place] [address] Care Team Providers Care Retail Shift Supervisor Name Role Phone Otis Jiménez DO Primary Care Provider [phone] Encounter Details Date Type Department Care Team (Late Contact Info) Description 12/09/2021 Telephone [facility] [address] [place] [address] Pearl Hagan, RN Social History Tobacco Use [...] Description 09/29/2024 10:30 AM EDT Office Visit [facility] Internal Medicine - Family Medicine [address] [place] [address] Otis Jiménez DO [address], [place] [address] documented as of this encounter Visit Diagnoses Not on filedocumented in this encounter Care Teams Retail Shift Supervisor Relationship Specialty Start Date End Date Otis Jiménez DO [address], [facility] [place] [address] PCP - General Family Medicine 10/03/21 documented as of this encounter
--- OUTSIDE RECORDS SUMMARY | 2024-08-30 12:47 | XMS_ITS | Encounter Summary ---
Author Organization [employer] Address [id number] [address] [place] [address] Care Team Providers Care Neuroscientist Name Role Phone Otis Jiménez Primary Care Provider + [phone] Encounter Details Date Type Department Care Team (Late st Contact Info) Description 08/19/2023 Telephone [facility] Internal Medicine - Family Medicine [address] [place] [phone] Suyapa Dorsey CMA Social History Tobacco Use Types Packs/Day Years Used Date Smoking Tobacco: Former Cigarettes Smokeless Tobacco: Never Comments:only smoked for 3 m [facility] 60 years ago, 2 cigarettes a day Alcohol Use Standard Drinks/Week Comments Not Currently 0 (1 standard drink = 0.6 oz pur e alcohol) rare- on new years clive [facility] Utilities Answer Date Recorded In the past 12 months has [employer], gas, oil, or water company threatened [...] often do you attend chur ch or rastafari services? More than 4 times per year 06/24/2023 Do you belong to any clubs o r organizations such as jainism groups, unions, fraternal or athletic groups, or [...] Answer Date Recorded Total Score 0 07/29/2023 [facility] - Occupational Stress Questionnaire Answer Date [...] Recorded Do you need help finding a [facility] career center and/or a training program? [...] Dorsey CMA - 08/19/2023 10:28 AM EDT [facility] Pain Management called (Monique) called and [...] - Family Medicine [address] [place] [address] Otis Jiménez DO [address], [facility] [place] [address] documented as of this encounter Visit Diagnoses Not on filedocumented in this encounter Additional Health Concerns Assessment Noted Time PHQ-9 Depression Total Score: 0 07/29/19 24 3:47 PM EDT documented as of this encounter Care Teams Neuroscientist Relationship Specialty Start Date End Date Otis Jiménez DO [address], [facility] [place] [address] PCP - General Family Medicine 10/03/21 documented as of this encounter
--- OUTSIDE RECORDS SUMMARY | 2024-08-30 12:47 | XMS_ITS | Encounter Summary ---
Author Organization [employer] Address [id number] [address] [place] [address] Care Team Providers Care Major Gifts Director Name Role Phone Otis Jiménez DO Primary Care Provider + [phone] Encounter Details Date Type Department Care Team (Late Contact Info) Description 07/07/2022 Orders Only [facility] Internal Medicine - Family Medicine [address] [place] [address] External, Scanning Provider Social History [...] 10:30 AM EDT [facility] [address] [place] [address] Otis Jiménez DO [address], [place] [address] documented as of this encounter Procedures Procedure Name Priority Date/Time Associated Diagnosis Comments MULTIPLE LABS Routine 05/26/2022 MULTIPLE RADS Routine 05/24/2022 ECG 12-LEAD Routine 05/22/2019 documented in this encounter Results * Multiple labs (05/26/2022) us Scanning Provider External [facility] Final Result Performing Organization Address [facility] de Phone Number MANUALLY TRANSCRIBED RESULTS * Multiple rads (05/24/2022) Anatomical Region Laterality Modality Other us Scanning Provider External [facility] Final Result * ECG 12 lead (05/22/2019) us Scanning Provider External ECG ORDERABLES Final Result Performing Organization Address [facility] de Phone Number MANUALLY TRANSCRIBED RESULTS documented in this encounter Visit Diagnoses Not on filedocumented in this encounter Additional Health Concerns Assessment Noted Time PHQ-9 Depression Total Score: 0 07/08/19 23 1:31 PM EDT documented as of this encounter Care Teams Major Gifts Director Relationship Specialty Start Date End Date Otis Jiménez DO [address] [place] [address] PCP - General Family Medicine 10/03/21 documented as of this encounter
--- OUTSIDE RECORDS SUMMARY | 2024-08-30 12:48 | XMS_ITS | Encounter Summary ---
Author Organization [employer] Address [id number] [address] [place] [address] Care Team Providers Care Signs And Displays Sales Representative Name Role Phone Otis Jiménez DO Primary Care Provider + [phone] Encounter Details Date Type Department Care Team (Late Contact Info) Description 04/22/2023 Orders Only [facility] Internal Medicine - Family Medicine [address] [place] [address] External, Scanning Provider Social History Tobacco Use Types Packs/Day Years Used Date Smoking Tobacco: Former Cigarettes Smokeless Tobacco: Never Comments:only smoked for 3 m [facility] 60 years ago, 2 cigarettes [...] - Family Medicine [address] [place] [address] Otis Jiménez DO [address], [place] [address] documented as of this encounter Procedures Procedure [...] documented as of this encounter Care Teams Signs And Displays Sales Representative Relationship Specialty Start Date End Date Otis Jiménez DO [address], [place] [address] PCP - General Family Medicine 10/03/21 documented as of this encounter
--- OUTSIDE RECORDS SUMMARY | 2024-08-30 12:48 | XMS_ITS | Encounter Summary ---
Author Organization [facility] [employer] [facility] tem Address [facility] [place][id number] [address] [place] [address] Care Team Providers Care Cytology Technologist Name Role Phone Otis Jiménez DO Primary Care Provider [phone] Encounter Details Date Type Department Care Team (Late Contact Info) Description 01/06/2022 Telephone [facility] [address] [place] [phone] Pearl Hagan, RN Social History Tobacco Use [...] Description 09/29/2024 10:30 AM EDT Office Visit [facility] Internal Medicine - Family Medicine [address] [place] [address] Otis Jiménez DO [address], [place] [address] documented as of this encounter Visit Diagnoses Not on filedocumented in this encounter Care Teams Cytology Technologist Relationship Specialty Start Date End Date Otis Jiménez DO [address], [facility] [place] [address] PCP - General Family Medicine 10/03/21 documented as of this encounter
--- OUTSIDE RECORDS SUMMARY | 2024-08-30 12:48 | XMS_ITS | Encounter Summary ---
Author Organization [employer] Sys tem Address [facility] [place]-[id number] [address] [place] [address] Care Team Providers Care Implementation Director Name Role Phone Otis Jiménez DO Primary Care Provider + [phone] Encounter Details Date Type Department Care Team (Late st Contact Info) Description 12/21/2022 Telephone [facility] Internal [facility] - Family Medicine [address] [place] [address] Chelsy Mcclendon CMA Social History Tobacco Use Types Packs/Day Years Used Date Smoking Tobacco: Former Cigarettes Smokeless Tobacco: Never Comments:only smoked for 3 m [facility] 60 years ago, 2 cigarettes [...] - Family Medicine [address] [place] [address] Otis Jiménez DO [address] [facility] [place] [address] documented as of this encounter Visit Diagnoses Not on filedocumented in this encounter Additional Health Concerns Assessment Noted Time PHQ-9 Depression Total Score: 0 08/27/19 23 10:51 AM EDT documented as of this encounter Care Teams Implementation Director Relationship Specialty Start Date End Date Otis Jiménez DO [address] [facility] [place] [address] PCP - General Family Medicine 10/03/21 documented as of this encounter
--- OUTSIDE RECORDS SUMMARY | 2024-08-30 12:48 | XMS_ITS | Encounter Summary ---
Author Organization [facility] [employer] [facility] tem Address [facility] [place]-[id number] [address] [place] [address] Care Team Providers Care Surface Ship Usw Supervisor Name Role Phone Otis Jiménez DO Primary Care Provider [phone] Encounter Details Date Type Department Care Team (Late Contact Info) Description 12/16/2021 Telephone [facility] [address] [place] [address] Pearl Hagan, RN Social History Tobacco Use [...] Description 09/29/2024 10:30 AM EDT Office Visit [facility] Internal Medicine - Family Medicine [address] [place] [address] Otis Jiménez DO [address], [place] [address] documented as of this encounter Visit Diagnoses Not on filedocumented in this encounter Care Teams Surface Ship Usw Supervisor Relationship Specialty Start Date End Date Otis Jiménez DO [address], [facility] [place] [address] PCP - General Family Medicine 10/03/21 documented as of this encounter
--- OUTSIDE RECORDS SUMMARY | 2024-08-30 12:48 | XMS_ITS | Encounter Summary ---
Author Organization [facility] [employer] [facility] tem Address [facility] [place][id number] [address] [place] [address] Care Team Providers Care Photo Equipment Technician Name Role Phone Otis Jiménez DO Primary Care Provider [phone] Encounter Details Date Type Department Care Team (Late Contact Info) Description 01/30/2022 Telephone [facility] [address] [place] [address] Pearl Hagan, RN Social History Tobacco Use [...] 10:30 AM EDT Office Visit [facility] Internal Medicine - Family Medicine [address] [place] [address] Otis Jiménez DO [address], [place] [address] documented as of this encounter Visit Diagnoses Not on filedocumented in this encounter Care Teams Photo Equipment Technician Relationship Specialty Start Date End Date Otis Jiménez DO [address], [place] [address] PCP - General Family Medicine 10/03/21 documented as of this encounter
--- OUTSIDE RECORDS SUMMARY | 2024-08-30 12:48 | XMS_ITS | Encounter Summary ---
Author Organization [facility] [employer] [facility] tem Address [facility] [place]-[id number] [address] [place] [address] Care Team Providers Care Paralegal Legal Secretary Name Role Phone Otis Jiménez DO Primary Care Provider [phone] Encounter Details Date Type Department Care Team (Late Contact Info) Description 01/30/2022 Telephone [facility] [address] [place] [phone] Pearl Hagan, RN Social History Tobacco Use [...] 10:30 AM EDT Office Visit [facility] Internal Medicine - Family Medicine [address] [place] [address] Otis Jiménez DO [address], [place] [address] documented as of this encounter Visit Diagnoses Not on filedocumented in this encounter Care Teams Paralegal Legal Secretary Relationship Specialty Start Date End Date Otis Jiménez DO [address], [place] [address] PCP - General Family Medicine 10/03/21 documented as of this encounter
--- OUTSIDE RECORDS SUMMARY | 2024-08-30 12:48 | XMS_ITS | Encounter Summary ---
Author Organization [employer] tem Address [facility] [place][id number] [address] [place] [address] Care Team Providers Care Pelt Dropper Name Role Phone Otis Jiménez Primary Care Provider + [phone] Encounter Details Date Type Department Care Team (Late st Contact Info) Description 07/12/2024 Orders Only [facility] Internal Medicine - Family Medicine [address] [place] [address] Ref Prov, [place] [address] Social History Tobacco Use Types Packs/Day Years Used Date Smoking Tobacco: Former Cigarettes Smokeless Tobacco: Never Comments:only smoked for 3 m onths 60 years ago, 2 cigarettes a day Alcohol Use Standard Drinks/Week Comments Not Currently 0 (1 standard drink = 0.6 oz pur e alcohol) rare- on new years clive [facility] Utilities Answer Date Recorded In the [...] any clubs o r organizations such as bahai groups, unions, fraternal or athletic groups, or [...] Date Recorded Total Score 0 03/24/2024 [facility] of Occupat ional Health - Occupational [...] Recorded Do you need help finding a [facility] career center and/or a training program? [...] - Family Medicine [address] [place] [address] Otis Jiménez DO [address], [facility] [address] documented as of this encounter Procedures Procedure [...] documented as of this encounter Care Teams Pelt Dropper Relationship Specialty Start Date End Date Otis Jiménez DO [address] [place] [address] PCP - General Family Medicine 10/03/21 documented as of this encounter
--- OUTSIDE RECORDS SUMMARY | 2024-08-30 12:48 | XMS_ITS | Encounter Summary ---
Author Organization [employer] tem Address [facility] [place][id number] [address] [place] [address] Care Team Providers Care Pharmacy Manager Name Role Phone Otis Jiménez Primary Care Provider + [phone] Encounter Details Date Type Department Care Team (Late st Contact Info) Description 05/19/2024 Telephone [facility] Internal Medicine - Family Medicine [address] [place] [address] Demetrio Huitron CMA Social History Tobacco Use Types Packs/Day Years Used Date Smoking Tobacco: Former Cigarettes Smokeless Tobacco: Never Comments:only smoked for [address] [facility] 60 years ago, 2 cigarettes a day Alcohol Use Standard Drinks/Week Comments Not Currently 0 (1 standard drink = 0.6 oz pur e alcohol) rare- on new years clive [facility] Utilities Answer Date Recorded [...] often do you attend chur ch or adventist services? More than 4 times per year 06/24/2023 Do you belong to any clubs o r organizations such as nondenominational groups, unions, fraternal or athletic groups, or [...] Answer Date Recorded Total Score 0 03/24/2024 [facility] of Occupat ional Health - [...] Recorded Do you need help finding a [facility] career center and/or a training [...] Medicine [address] [place] [address] Otis Jiménez DO [address] [facility] [place] [address] documented as of this encounter Visit Diagnoses Not on filedocumented in this encounter Additional Health Concerns Assessment Noted Time PHQ-9 Depression Total Score: 0 03/24/19 25 10:36 AM EST documented as of this encounter Care Teams Pharmacy Manager Relationship Specialty Start Date End Date Otis Jiménez DO [address] [facility] [place] [address] PCP - General Family Medicine 10/03/21 documented as of this encounter
--- OUTSIDE RECORDS SUMMARY | 2024-08-30 12:48 | XMS_ITS | Encounter Summary ---
Author Organization [employer] tem Address [facility]-[id number] [address] [place] [address] Care Team Providers Care Legal Support Assistant Name Role Phone Otis Jiménez DO Primary Care Provider + [phone] Encounter Details Date Type Department Care Team (Late st Contact Info) Description 04/12/2023 Orders Only [facility] Internal Medicine - Family Medicine [address] [place] [address] Veronica Nowak, WAREHOUSE RECORD CLERK-SPECIAL EVENTS ASSISTANT [address] [place], [place] [id number] Bilateral hip pain Social History Tobacco Use Types Packs/Day Years Used Date Smoking Tobacco: Former Cigarettes Smokeless Tobacco: Never Comments:only smoked for 3 m [facility] 60 years ago, 2 cigarettes [...] Medicine - Family Medicine [address] [place] [address] Otis Jiménez DO [address], [place] [address] documented as of this encounter Procedures Procedure Name Priority Date/Time Associated Diagnosis Comments XR HIPS BILAT W OR WO PELVIS 2 VWS Routine 04/07/2023 Bilateral hip pain documented in this encounter Results * X-ray hips bilateral with or without pelvis 2 views (04/07/2023) Anatomical Region Laterality Modality Lower Extremities, MSK, Hip Bilateral Comp uted Radiography Veronica Nowak WAREHOUSE RECORD CLERK-SPECIAL EVENTS ASSISTANT IMG DIAGNOSTIC IMAGING [facility]I [facility] Final Result documented in this encounter Visit Diagnoses Diagnosis Bilateral hip pain Pain in joint, pelvic region and thigh documented in this encounter Additional Health Concerns Assessment Noted Time PHQ-9 Depression Total Score: 0 12/24/19 23 1:14 PM EDT documented as of this encounter Care Teams Legal Support Assistant Relationship Specialty Start Date End Date Otis Jiménez DO [address], [place] [address] PCP - General Family Medicine 10/03/21 documented as of this encounter
--- OUTSIDE RECORDS SUMMARY | 2024-08-30 12:48 | XMS_ITS | Encounter Summary ---
Author Organization [employer] tem Address [facility] [place]-[id number] [address] [place] [address] Care Team Providers Care Leather Goods Sales Representative Name Role Phone Otis Jiménez DO Primary Care Provider + [phone] Encounter Details Date Type Department Care Team (Late st Contact Info) Description 05/31/2024 Orders Only [facility] Internal Medicine - Family Medicine [address] [address] Coral Hood CMA Lumbar spondylosis; Spinal stenosis of lumbar region, unspecified whether neurogenic claudication present Social History Tobacco Use Types Packs/Day Years Used Date Smoking Tobacco: Former Cigarettes Smokeless Tobacco: Never Comments:only smoked for 3 m [facility] 60 years ago, 2 cigarettes a day Alcohol Use Standard Drinks/Week Comments Not Currently 0 (1 standard drink = 0.6 oz pur e alcohol) rare- on new years clive [facility] Utilities Answer Date Recorded In the past 12 months has [employer], gas, oil, or water company threatened [...] often do you attend chur ch or scientologist services? More than 4 times per year 06/24/2023 Do you belong to any clubs o r organizations such as yarsani groups, unions, fraternal or athletic groups, or [...] Answer Date Recorded Total Score 0 03/24/2024 [facility] of Occupat ional Health - Occupational Stress [...] Recorded Do you need help finding a [facility] career center and/or a training program? No [...] Medicine [address] [place] [address] Otis Jiménez DO [address], [place] [address] documented as of this encounter Procedures Procedure [...] documented as of this encounter Care Teams Leather Goods Sales Representative Relationship Specialty Start Date End Date Otis Jiménez DO [address], [place] [address] PCP - General Family Medicine 10/03/21 documented as of this encounter
--- OUTSIDE RECORDS SUMMARY | 2024-08-30 12:48 | XMS_ITS | Encounter Summary ---
Author Organization [facility] [employer] [facility] tem Address [facility]-[id number] [address] [place] [address] Care Team Providers Care Ultrasonic Seaming Machine Operator Name Role Phone Otis Jiménez DO Primary Care Provider [phone] Encounter Details Date Type Department Care Team (Late Contact Info) Description 01/02/2022 Telephone [facility] [address] [place] [address] Marychuy Ly CNA Social History Tobacco Use [...] Description 09/29/2024 10:30 AM EDT Office Visit [facility] Internal Medicine - Family Medicine [address] [place] [address] Otis Jiménez DO [address], [place] [address] documented as of this encounter Visit Diagnoses Not on filedocumented in this encounter Care Teams Ultrasonic Seaming Machine Operator Relationship Specialty Start Date End Date Otis Jiménez DO [address], [place] [address] PCP - General Family Medicine 10/03/21 documented as of this encounter
--- OUTSIDE RECORDS SUMMARY | 2024-08-30 12:48 | XMS_ITS | Encounter Summary ---
Author Organization [facility] [employer] [facility] tem Address [facility] [place] [facility] [id number] [address] [place] [address] Care Team Providers Care Technician Biological Health Name Role Phone Otis Jiménez DO Primary Care Provider [phone] Encounter Details Date Type Department Care Team (Late Contact Info) Description 02/02/2022 Telephone [facility] Care [facility] [address] [place] [address] Pearl Hagan, RN Social History Tobacco Use [...] Description 09/29/2024 10:30 AM EDT Office Visit [facility] Internal Medicine - Family Medicine [address] [place] [address] Otis Jiménez DO [address], [place] [address] documented as of this encounter Visit Diagnoses Not on filedocumented in this encounter Care Teams Technician Biological Health Relationship Specialty Start Date End Date Otis Jiménez DO [address], [place] [address] PCP - General Family Medicine 10/03/21 documented as of this encounter
--- OUTSIDE RECORDS SUMMARY | 2024-08-30 12:48 | XMS_ITS | Encounter Summary ---
Author Organization [employer] tem Address [facility] [place][id number] [address] [place] [address] Care Team Providers Care Metallurgist Helper Name Role Phone Otis Jiménez DO Primary Care Provider + [phone] Encounter Details Date Type Department Care Team (Late st Contact Info) Description 05/27/2023 Telephone [facility] Internal Medicine - Family Medicine [address] [address] Coral Hood CMA Social History Tobacco Use Types Packs/Day Years Used Date Smoking Tobacco: Former Cigarettes Smokeless Tobacco: Never Comments:only smoked for 3 m [facility] 60 years ago, 2 cigarettes a [...] - Family Medicine [address] [place] [address] Otis Jiménez DO [address], [facility] [place] [address] documented as of this encounter Visit Diagnoses Not on filedocumented in this encounter Additional Health Concerns Assessment Noted Time PHQ-9 Depression Total Score: 0 05/24/19 24 2:22 PM EST documented as of this encounter Care Teams Metallurgist Helper Relationship Specialty Start Date End Date Otis Jiménez DO [address] [facility] [place] [address] PCP - General Family Medicine 10/03/21 documented as of this encounter
--- OUTSIDE RECORDS SUMMARY | 2024-08-30 12:48 | XMS_ITS | Clinical Summary ---
Author Organization [facility] Address [address] [place] [address] Phone Care Team Providers Care Outside Sales Representative Name Role Phone Unavailable Primary Care Provider [...]
--- OUTSIDE RECORDS SUMMARY | 2024-08-30 12:48 | XMS_ITS | Encounter Summary ---
Author Organization [employer] Address [facility]-[id number] [address] [place] [address] Care Team Providers Care Insurance Agency Owner Name Role Phone Otis Jiménez DO Primary Care Provider + [phone] Encounter Details Date Type Department Care Team (Late st Contact Info) Description 11/05/2022 Telephone [facility] Internal Medicine - Family Medicine [address] [place] [address] Suyapa Dorsey CMA Social History Tobacco Use Types Packs/Day Years Used Date Smoking Tobacco: Former Cigarettes Smokeless Tobacco: Never Comments:only smoked for 3 m [facility] 60 years ago, 2 cigarettes a day [...] she said she would be going to [facility]. * Telephone Encounter - Otis Jiménez DO - 11/05/2022 10:00 AM EDT Yes, definitely the ER documented in this encounter Plan of Treatment Upcoming Encounters Date Type Department Care Team (Late st Contact Info) Description 09/29/2024 10:30 AM EDT Office Visit [facility] Internal Medicine - Family Medicine [address] [place] [address] Otis Jiménez DO [address], [facility] [place] [address] documented as of this encounter Visit Diagnoses Not on filedocumented in this encounter Additional Health Concerns Assessment Noted Time PHQ-9 Depression Total Score: 0 08/27/19 10:51 AM EDT documented as of this encounter Care Teams Insurance Agency Owner Relationship Specialty Start Date End Date Otis Jiménez DO [address] [facility] [place] [address] PCP - General Family Medicine 10/03/21 documented as of this encounter
--- OUTSIDE RECORDS SUMMARY | 2024-08-30 12:48 | XMS_ITS | Encounter Summary ---
Author Organization [facility] [facility] tem Address [facility] [place]-[id number] [address] [place] [address] Care Team Providers Care Sawing And Assembly Supervisor Name Role Phone Otis Jiménez DO Primary Care Provider [phone] Encounter Details Date Type Department Care Team (Late Contact Info) Description 12/16/2021 Telephone [facility] - Wound Care Clinic [address] [place] [address] Pearl Hagan, RN Social History Tobacco Use [...] 10:30 AM EDT Office Visit [facility] Internal Medicine - Family Medicine [address] [place] [address] Otis Jiménez DO [address], [place] [address] documented as of this encounter Visit Diagnoses Not on filedocumented in this encounter Care Teams Sawing And Assembly Supervisor Relationship Specialty Start Date End Date Otis Jiménez DO [address], [facility] [place] [place] [address] PCP - General Family Medicine 10/03/21 documented as of this encounter
--- OUTSIDE RECORDS SUMMARY | 2024-08-30 12:48 | XMS_ITS | Encounter Summary ---
Author Organization [email or web address] Address [facility] [place]-[id number] [address] [place] [address] Care Team Providers Care Posting Clerk Name Role Phone Otis Jiménez DO Primary Care Provider + [phone] Encounter Details Date Type Department Care Team (Late st Contact Info) Description 04/19/2023 Orders Only [facility] Internal Medicine - Family Medicine [address] [place] [address] Veronica Nowak, STEAM CONDITIONING OPERATOR-PRIMING MIXTURE CARRIER [address] [place], [place] [id number] PMR (polymyalgia rheumatica) ([facility]); Bilateral hip pain Social History Tobacco Use [...] Medicine - Family Medicine [address] [place] [address] Otis Jiménez DO [address], [facility] [place] [address] documented as of this encounter Procedures Procedure Name Priority Date/Time Associated Diagnosis Comments AMB REFERRAL TO PAIN MANAGEMENT Routine 04/19/2023 PMR (polymyalgia rheumatica) (CMS-HCC) Bilateral hip pain documented in this encounter Results * Ambulatory referral to Pain Management ([facility]) (04/19/2023) us Veronica Nowak STEAM CONDITIONING OPERATOR-PRIMING MIXTURE CARRIER OUTPATIENT REFERRAL ORDERAB LES Final Result MANUALLY TRANSCRIBED RESULTS documented in this encounter Visit Diagnoses Diagnosis PMR (polymyalgia rheumatica) Polymyalgia rheumatica Bilateral hip pain Pain in joint, pelvic region and thigh documented in this encounter Additional Health Concerns Assessment Noted Time PHQ-9 Depression Total Score: 0 12/24/19 23 1:14 PM EDT documented as of this encounter Care Teams Posting Clerk Relationship Specialty Start Date End Date Otis Jiménez DO [address] [place] [address] PCP - General Family Medicine 10/03/21 documented as of this encounter
--- OUTSIDE RECORDS SUMMARY | 2024-08-30 12:48 | XMS_ITS ---
Author Organization [employer] [facility] Address [facility] [place] [facility] [place]-[id number] [address] [place] [address] Care Team Providers Care Rural Carrier Associate Name Role Phone Otis Jiménez Primary Care Provider Active Problems Problem Noted Date Diagnosed Date [...]
--- OUTSIDE RECORDS SUMMARY | 2024-08-30 12:48 | XMS_ITS | Clinical Summary ---
Author Organization [facility] Address [address] [place] [address] Care Team Providers Care Varnish Melter Helper Name Role Phone Otis Jiménez MD Primary Care Provider [phone] Allergies Active Allergy Reactions Criticality Noted Date [...] Years Completed 03/19/2017, 04/27/2016, 12/18/2014 Insurance [employer] [facility] [employer] Care Teams Varnish Melter Helper Relationship Specialty Start Date End Date Otis Jiménez MD PCP - General Family Medicine 10/04/23
--- OUTSIDE RECORDS SUMMARY | 2024-08-30 12:48 | XMS_ITS | Encounter Summary ---
Author Organization [employer] Address [facility] [place]-[id number] [address] [place] [address] Care Team Providers Care Drying Oven Attendant Name Role Phone Otis Jiménez DO Primary Care Provider + [phone] Encounter Details Date Type Department Care Team (Late st Contact Info) Description 04/16/2023 Telephone [facility] Internal Medicine - Family Medicine [address] [place] [phone] Suyapa Dorsey CMA Social History Tobacco Use Types Packs/Day Years Used Date Smoking Tobacco: Former Cigarettes Smokeless Tobacco: Never Comments:only smoked for 3 m [facility] 60 years ago, 2 cigarettes a [...] Pt Daughter called and stated that her lyrtipa would not be covered because she does [...] fine and to send into [facility] * Telephone Encounter - AIDAN El - 04/16/2023 11:40 AM EST Sent in documented in this encounter Plan of Treatment Upcoming Encounters Date Type Department Care Team (Late st Contact Info) Description 09/29/2024 10:30 AM EDT Office Visit [facility] Medicine - Family Medicine [address] [place] [phone] Otis Jiménez, [address], [place] [address] documented as of this encounter Visit Diagnoses Not on filedocumented in this encounter Additional Health Concerns Assessment Noted Time PHQ-9 Depression Total Score: 0 10/04/20 23 1:14 PM EDT documented as of this encounter Care Teams Drying Oven Attendant Relationship Specialty Start Date End Date Otis Jiménez DO [address], [facility] [place] [address] PCP - General Family Medicine 10/03/21 documented as of this encounter
--- OUTSIDE RECORDS SUMMARY | 2024-08-30 12:48 | XMS_ITS | Encounter Summary ---
Author Organization [facility] tem Address [id number] [address] [place] [address] Care Team Providers Care Freight Clerk Name Role Phone Otis Jiménez DO Primary Care Provider [phone] Encounter Details Date Type Department Care Team (Late Contact Info) Description 02/20/2022 Telephone [facility] [address] [place] [phone] Pearl Hagan, RN Social History Tobacco Use [...] Description 09/29/2024 10:30 AM EDT Office Visit [facility] Internal Medicine - Family Medicine [address] [place] [address] Otis Jiménez DO [address], [place] [address] documented as of this encounter Visit Diagnoses Not on filedocumented in this encounter Care Teams Freight Clerk Relationship Specialty Start Date End Date Otis Jiménez DO [address], [place] [address] PCP - General Family Medicine 10/03/21 documented as of this encounter
--- OUTSIDE RECORDS SUMMARY | 2024-08-30 12:48 | XMS_ITS | Encounter Summary ---
Author Organization [facility] [employer] [facility] tem Address [facility]-[id number] [address] [place] [address] Care Team Providers Care Scarrer Name Role Phone Otis Jiménez DO Primary Care Provider [phone] Encounter Details Date Type Department Care Team (Late Contact Info) Description 04/22/2022 Telephone [facility] [address] [place] [phone] Pearl Hagan, RN Social History Tobacco Use [...] Description 09/29/2024 10:30 AM EDT Office Visit [facility] Internal Medicine - Family Medicine [address] [place] [address] Otis Jiménez DO [address], [place] [address] documented as of this encounter Visit Diagnoses Not on filedocumented in this encounter Care Teams Scarrer Relationship Specialty Start Date End Date Otis Jiménez DO [address], [place] [address] PCP - General Family Medicine 10/03/21 documented as of this encounter
--- OUTSIDE RECORDS SUMMARY | 2024-08-30 12:48 | XMS_ITS | Encounter Summary ---
Author Organization [facility] [employer] [facility] tem Address [facility]-[id number] [address] [place] [address] Care Team Providers Care Bowling Ball Molder Name Role Phone Otis Jiménez DO Primary Care Provider [phone] Encounter Details Date Type Department Care Team (Late Contact Info) Description 03/03/2022 Telephone [facility] [address] [place] [phone] Pearl Hagan, RN Social History Tobacco Use [...] 10:30 AM EDT Office Visit [facility] Internal Medicine - Family Medicine [address] [place] [address] Otis Jiménez DO [address], [place] [address] documented as of this encounter Visit Diagnoses Not on filedocumented in this encounter Care Teams Bowling Ball Molder Relationship Specialty Start Date End Date Otis Jiménez DO [address], [place] [address] PCP - General Family Medicine 10/03/21 documented as of this encounter
--- OUTSIDE RECORDS SUMMARY | 2024-08-30 12:48 | XMS_ITS | Clinical Summary ---
Author Organization [facility] [employer] Address [address] [place] [address] [place] [address] Care Team Providers Care Manager Ccu Name Role Phone Yariel Sharma MD Primary [...] this topic Medical Devices Implanted Type Area Insulation Board Coater Operator Device Identifier Shelf Expiration Date Model / Serial / Lot [id number] [employer]in [employer] ASA Ic Graft Chamber 5cc Implanted:Qty: 1 on 06/18/2015 by Lola Grady MD at [facility] Explanted:at [facility] (Quantity not on file) Left: Shoulder HUMAN TISSUE 01/09/2018 [id number] / [id number] / Poly Liner Plus 0 Mm Offset 36mm Diameter Implanted:Qty: 1 on 06/18/2015 by Lola Grady MD at [facility] Left: Shoulder ROBLES BIOMET 4349 6-00 / / [id number] Inverse/Reverse Screw System 4.5-30 Implanted:Qty: 1 on 06/18/2015 by Lola Grady MD at [facility] Left: Shoulder ROBLES BIOMET 06243.0 30 / / [id number] Base Plate 15mm Implanted:Qty: 1 on 06/18/2015 by Lola Grady MD at [facility] Left: Shoulder ROBLES BIOMET 5 / / [id number] Inverse/Reverse Screw System 4.5-42 Implanted:Qty: 1 on 06/18/2015 by Lola Grady MD at [facility] Left: Shoulder ROBLES BIOMET 23.0 42 / / [id number] Glenosphere 36mm Implanted:Qty: 1 on 06/18/2015 by Lola Grady MD at [facility] Left: Shoulder ROBLES BIOMET 9 6 / / [id number] Humeral Stem 12mm X 130mm Implanted:Qty: 1 on 06/18/2015 by Lola Grady MD at [facility] Left: Shoulder ROBLES BIOMET 05-04 / / [id number] Radiopaque 11mm Implanted:Qty: 1 on 06/18/2015 by Lola Grady MD at [facility] Left: Shoulder ROBLES BIOMET 1109-11 / / [id number] Procedures Procedure Name Priority Date/Time Associated Diagnosis [...] Glucose 106(H) 70 - 99 mg/dL LAB, [facility] [[email or web address]] CREATININE SERUM 0.60 0.50 - 1.20 mg/dL LAB, [facility] [[email or web address]] ANION GAP 8 7 - 17 mmol/L LAB, [facility] BUN/CREA RATIO 17 LAB, [facility] OSMOLALITY (CALC) 283 278 - 305 mOsm/kg LAB, [facility] ESTIMATED GFR, NON AMER >60 >60 mL/min/1.7 3sqM LAB, [facility] [[email or web address]] ESTIMATED GFR, >60 >60 mL/min/1.7 3sqM LAB, [facility] [[email or web address]] 06/20/2015 5:00 AM EDT 06/20/2015 6:08 AM EDT Stephen YARBROUGH CHEMISTRY ORDERABLES Final Re sult LAB, [facility] [address] [place] [address] from Last 3 Months or Most Recently Relevant to Health Maintenance Insurance MEDICARE A AND B Advance Directives For more information, please contact: [phone] (7:30 AM - 6PM Marilyn/[place], Wednesday-Wednesday) * Full Code (Latest Code Status on File) Date Activated Date Inactivated Comments 06/18/2015 8:04 PM 06/21/2015 6:23 PM Care Teams Manager Ccu Relationship Specialty Start Date End Date Yariel Sharma MD PCP - General Internal Medicine 05/21/15
--- OUTSIDE RECORDS SUMMARY | 2024-08-30 12:48 | XMS_ITS | Encounter Summary ---
Author Organization [facility] [employer] [facility] tem Address [facility]-[id number] [address] [place] [address] Care Team Providers Care Pumper Hand Name Role Phone Otis Jiménez DO Primary Care Provider [phone] Encounter Details Date Type Department Care Team (Late Contact Info) Description 01/19/2022 Telephone [facility] - [facility] Care [facility] [address] [place] [address] Pearl Hagan, RN Social History Tobacco Use [...] Description 09/29/2024 10:30 AM EDT Office Visit [facility] Internal Medicine - Family Medicine [address] [place] [address] Otis Jiménez DO [address], [place] [address] documented as of this encounter Visit Diagnoses Not on filedocumented in this encounter Care Teams Pumper Hand Relationship Specialty Start Date End Date Otis Jiménez DO [address], [facility] [place] [address] PCP - General Family Medicine 10/03/21 documented as of this encounter
--- OUTSIDE RECORDS SUMMARY | 2024-08-30 12:48 | XMS_ITS | Encounter Summary ---
Author Organization [employer] Address [facility] [place]-[id number] [address] [place] [address] Care Team Providers Care Junior Analyst Name Role Phone Otis Jiménez DO Primary Care Provider [phone] Encounter Details Date Type Department Care Team (Late Contact Info) Description 10/07/2021 Telephone [facility] General Surgery [address] [place] [phone] Amrik Vasquez DO [address] [place] [address] Social History Tobacco Use Types [...] Medicine - Family Medicine [address] [place] [phone] Otis Jiménez DO [address], [place] [address] documented as of this encounter Visit Diagnoses Not on filedocumented in this encounter Care Teams Junior Analyst Relationship Specialty Start Date End Date Otis Jiménez DO [address], [facility] [place] [address] PCP - General Family Medicine 10/03/21 documented as of this encounter
--- OUTSIDE RECORDS SUMMARY | 2024-08-30 12:48 | XMS_ITS | Clinical Summary ---
Author Organization [employer] tem Address [facility]-[id number] [address] [place] [address] Care Team Providers Care Accelerator Technician Name Role Phone Otis Jiménez DO Primary Care Provider [phone] Allergies Active Allergy Reactions Criticality Noted Date [...] Medicine - Family Medicine [address] [place] [address] Ref Prov, Not In System 06/21/2024 Telephone [facility] Internal Medicine - Family Medicine [address] [place] [address] Demetrio Huitron CMA 06/11/2024 Refill [facility] Medicine - Family Medicine [address] [place] [address] Otis Jiménez DO 05/31/2024 Orders Only [facility] - Family Medicine [address] [facility] [address] Coral Hood CMA Lumbar spondylosis; Spinal stenosis [...] e alcohol) rare- on new years clive [facility] Utilities Answer Date Recorded In the past 12 months has [employer], gas, oil, or water company threatened to [...] week 06/24/2023 How often do you attend [facility] or sikh services? More than 4 times per year 06/24/2023 Do you belong to any clubs o r organizations such as evangelical groups, unions, fraternal or athletic groups, or [...] Answer Date Recorded Total Score 0 03/24/2024 [facility] of Occupat ional Health - Occupational Stress [...] Recorded Do you need help finding a [facility] career center and/or a training program? No [...] - Family Medicine [address] [place] [address] Otis Jiménez, DO [address], [place] [address] Health Maintenance Due Date Last Done Comments [...] Months Insurance [employer] MEDICARE Care Teams Accelerator Technician Relationship Specialty Start Date End Date Otis Jiménez DO [address] [place] [address] PCP - General Family Medicine 10/03/21
--- OUTSIDE RECORDS SUMMARY | 2024-08-30 12:48 | XMS_ITS | Clinical Summary ---
Author Organization [facility] Address [address] [place], [place] [address] Care Team Providers Care Can Sorter Name Role Phone Yariel Sharma MD Primary Care Provider [phone] Allergies Active Allergy Reactions Criticality Noted Date [...] N ot on file 02/24/2020 Data from: [email or web address] Last address used for calculation Not [...] Influenza Vaccine (Season Ended) 2024 Insurance MEDICARE [facility] MEDICARE SUPPLEMENT Care Teams Can Sorter Relationship Specialty Start Date End Date Yariel Sharma MD PCP - General Internal Medicine 07/09/14
--- NOTE | 2024-08-30 13:40 | P.CN_ITS ---
Consult Note: HPI Data of Consult Patient: known to practice within the last 3 years Requesting Physician: Jamaica Garcia NP Primary Care Provider: FRANKI CHAVES Consult Narrative Reason for consult: f/u Narrative: Angelika Muir a pleasant 84 year old female presents for evaluation of chronic right shoulder pain. hx of severe right shoulder pain, suspected rotator cuff tear, has failed to benefit from joint injection and suprascapular/axiallary nerve block. pain today 8/10 with movement, at rest 0/10. has failed to benefit from heat, ice, tylenol, ibuprofen, mobic. denies side effects with current medications. previously declined orthopedic consultation for evaluation. cc:: CC: Jamaica Garcia NP Review of Systems ROS Status of ROS 10 or more systems reviewed and unremark able except as noted in history and below PFSH PFSH Medical History Rheumatoid arthritis ?M06.9 - Rheumatoid arthritis, unspecified (ICD-10) H/O malignant neoplasm of breast ?Z85.3 - Personal history of malignant neoplasm of breast (ICD-10) Kidney stone ?N20.0 - Calculus of kidney (ICD-10) Smoker ?F17.200 - Nicotine dependence, unspecified, uncomplicated (ICD-10) Surgical History Status post total shoulder arthroplasty ?Z96.619 - Presence of unspecified artificial shoulder joint (ICD-10) H/O foot surgery ?Z98.890 - Other specified postprocedural states (ICD-10) H/O hand surgery ?Z98.890 - Other specified postprocedural states (ICD-10) S/P total knee arthroplasty ?Z96.659 - Presence of unspecified artificial knee joint (ICD-10) S/P total hip arthroplasty ?Z96.649 - Presence of unspecified artificial hip joint (ICD-10) H/O thumb surgery ?Z98.890 - Other specified postprocedural states (ICD-10) Hx of tonsillectomy ?Z90.89 - Acquired absence of other organs (ICD-10) Family History Other Lumbago Meds Home Medications and Allergies Home Medications ?Medication ?Instructions ?Recorded ?Confirmed ?Type donepezil 5 mg tablet mg 11/01/23 History prednisone 5 mg tablet mg 11/01/23 History meloxicam 7.5 mg tablet 7.5 mg PO BID #60 tabs 08/0308/21/24 Rx Allergies Allergy/AdvReac Type Severity Reaction Status Date / Time No Known Drug Allergies Allergy Verified 08/21/24 11:21 Exam Constitutional Documenting provider has reviewed patient's vital signs: yes Common normals: no apparent distress, oriented x3, healthy appearing, alert and well nourished General appearance: cooperative HENMT Common normals: normocephalic, hearing grossly normal bilaterally and moist oral mucous membranes Head and scalp: normocephalic Eye Common normals: PERRL Pupil: PERRL Neck & C-Spine Common normals: full ROM General: normal visual inspection Chest Common normals: inspection of chest normal Respiratory Common normals: normal respiratory effort, no retractions and no use of accessory muscles Back & Pelvis Thoracic spine/upper back: normal to inspection Lumbar spine/lower back: normal to inspection, ROM limited and straight leg raise negative bilaterally Sacroiliac joints: SI joint(s) abnormal Other: right SIJ positive isabelle(patricks), gaenslens, thigh thrust, compression test Extremity Common normals: normal to inspection and full ROM Right upper extremity: shoulder joint Right shoulder joint exam: special tests Right shoulder special tests: Empty can test: Positive, Apley scratch test: P ositive and Acromioclavicular (AC) compression test: Positive Other: moderate pain with palpation of AC joint, ROM intact but produces moderate pain. positive posterior liftoff, apleys scratch, and empty can test Neuro Common normals: oriented x3 Sensorium/orientation: alert Motor exam: no movement abnormalities noted and strength abnormal Psych Common normals: mental status grossly normal, thought process normal, cooperative, affect normal, speech normal and activity/motor behavior normal Speech: normal speech Thought process: normal thought process Results Additional Findings Additional findings: If on a controlled substance or opioids, I have checked an [place]AR[place] report on this patient and there are no aberrancies noted in the prescribing history.??If on a controlled substance or opioid a drug screen was completed and reviewed within the last year, and if there has not been a drug screen completed we ordered one today to monitor higher risk, state monitored pain medication use. As part of providing excellent, safe, comprehensive care, the following was completed at our patient's visit: 1. A medication reconciliation and review to ensure accurate knowledge of current/active medications, including asking our patients to inform us about any erpc-emy-grqxasq medications or herbal remedies/nutritional supplements/alternative remedies. 2. A review to specifically ensure our patients have had annual screening for screening for depression, screening for tobacco use, and screening for unhealthy alcohol use. For concerning screenings had a discussion with the patient, provided patient education, and recommended follow-up with primary care provider when appropriate. If patient noted with a risk of falling, they received education on strength, gait, and balance training to prevent future risk of falling. Portions of this note may have been carried over from the previous visit and updated as appropriate. Please note this office utilizes paper charting in addition to the electronic medical record. A list of current medications, vitals, and PMH is available there as the clinical staff outside of myself do not have access to [employer] charting during the clinic day operations. As part of providing quality comprehensive care the current medications, vitals, and PMH were reviewed in the paper chart. Assessment and Plan Assessment and Plan (1) Osteoarthritis of right shoulder: Qualifiers: Osteoarthritis type: primary Qualified Code(s): M19.011 - Primary osteoarthritis, right shoulder (2) Lumbar stenosis with neurogenic claudication: Assessment and Plan: >50% improvement on exam (3) Lumbar spondylosis: (4) Right hip pain: Assessment and Plan: declining further workup (5) Sacroiliitis: Assessment and Plan: declining further workup (6) Tendinopathy of right rotator cuff: Plan previously was declining MRI of right shoulder and orthopedic consult, now open to orthopedic consultation start hydrocodone-acetaminophen 5-325mg daily prn for moderate to severe pain, risks vs benefits reviewed. 7 tabs to last 7 days continue HEP as tolerated f/u 1 month
== END 2024-08-30 12:46 | disposition home or self-care (01) ==
PROVIDERS: PCP Family Medicine; Visit Provider Nurse Practitioner
DX: M19.011 Primary osteoarthritis, right shoulder (principal); M48.062 Spinal stenosis, lumbar region with neurogenic claudication; M47.816 Spondylosis without myelopathy or radiculopathy, lumbar region; M25.551 Pain in right hip; M46.1 Sacroiliitis, not elsewhere classified; M75.102 Unspecified rotator cuff tear or rupture of left shoulder, not specified as traumatic
CPT/HCPCS: G0463